=== PATIENT | female | born 1965 | race Caucasian/White ===

== ENCOUNTER 2017-07-07 00:52 | Emergency (ER) | payer OTHER ==
[~2017-07-07] VITALS: Ht 162.6 cm; Wt 159.0 kg
[~2017-07-07 00:52] MED LIST: ALBU1NEB10 INH; CRS10 PO; CRS5 PO; INSHRI SC; LEVO150T PO; LISI-461 PO; LITH300T2 PO; LTHSR450 PO; NVLGI/PEN SQ; NXM/40 PO; ROPI3TAB PO; ROPI5TAB PO
[2017-07-07 00:55] VITALS: TEMP 36.6; Ht 162.6 cm; Wt 159.0 kg
[2017-07-07] MEDS ORDERED: CYAN10005 PO (01:34)
[2017-07-07] MEDS ORDERED: VNTHFA/IN INH (01:34)
[2017-07-07] MEDS ORDERED: SITA1TAB21 PO (01:34)
[2017-07-07] MEDS ORDERED: ERGO500037 PO (01:34)
[2017-07-07] MEDS ORDERED: LSN20 PO (01:34)
[2017-07-07] MEDS ORDERED: SYN137 PO (01:34)
[2017-07-07] MEDS ORDERED: INSPMPNVLG (01:34)
[2017-07-07] MEDS ORDERED: ROPI4TAB3 PO (01:34)
[2017-07-07] MEDS ORDERED: CEPH500C2 PO (02:09)
[2017-07-07] MEDS ORDERED: PHEN-876 PO (02:09)
[2017-07-07] MEDS ORDERED: CEPHALEXIN 500MG HOME PACK 1 EA BTL PO ONE (02:15)
[2017-07-07] MEDS ORDERED: PHENAZOPYRIDINE HOME PACK 200 MG VIAL PO ONE (02:15)
[2017-07-07 02:29] VITALS: BP 135/68; PULSE 66; O2SAT 97
--- NOTE | 2017-07-07 02:39 | EMERGENCY ROOM VISIT NOTE ---
History First contact with patient: 00:58 Chief Complaint: URINARY SYMPTOMS Stated Complaint: UTI History of Present Illness The patient is a 52 year old female who presents to the Emergency Room with complaints of urinary frequency and urgency for the past day. Blood sugars have been running in the 200s which is normal per patient. Patient has a history of UTIs but nothing recent. Last one was over a year ago. Patient denies chest pain, dyspnea, nausea, vomiting, flank pain, hematuria, vaginal itching or discharge or pain to the pelvic region. She denies rash to the genitalia region. Review of Systems An 10 system review of systems was completed with positives and pertinent negatives listed in the HPI. Past Medical/Surgical History Medical Problems: (1) Adult-onset Still's disease (2) Asthma (3) Bipolar disorder (4) Diabetes (5) Fibroid uterus (6) History of restless legs syndrome (7) History of total bilateral knee replacement (8) HTN (hypertension) (9) Hypothyroidism (10) Iron deficiency anemia (11) Morbid obesity with BMI of 60.0-69.9, adult (12) Obstructive sleep apnea (13) Osteoarthritis (14) Jaclyn-menopause (15) Poorly controlled type 2 diabetes mellitus Family History FH: HTN (hypertension) FH: cancer FH: diabetes mellitus FH: heart disease FH: lung disease Social History Smoking Status: Never Smoker Alcohol Use: none Marital Status: Housing Status: lives with significant other Occupation Status: unemployed Current/Historical Medications Scheduled Cephalexin Monohydrate (Keflex), 500 MG PO BID Cyanocobalamin (Vitamin B-12), 1,000 MCG PO DAILY Ergocalciferol (Vitamin D 68291 Unit), 50,000 UNIT PO 2XWK Esomeprazole Magnesium (Nexium), 40 MG PO QAM Insulin Aspart (novoLOG INSULIN PUMP ), 1 EA N/A UD Levothyroxine Sodium (Levothyroxine Sodium), 137 MCG PO QAM Lisinopril (Lisinopril), 20 MG PO QAM Strum Carbonate (Strum Carbonate Tab), 600 MG PO QAM Phenazopyridine HCl (Pyridium), 200 MG PO TID Ropinirole (Requip), 4 MG PO HS Rosuvastatin Calcium (Crestor), 10 MG PO QAM Sitagliptin-Metformin Hcl (Janumet Xr), 1 TAB PO QAM Scheduled PRN Albuterol Hfa (Ventolin Hfa), 2 PUFFS INH Q4H PRN for SOB/Wheezing Physical Exam Vital Signs Date Time Temp Pulse Resp B/P (MAP) Pulse Ox O2 Delivery O2 Flow Rate FiO2 07/07/17 02:29 66 16 135/68 97 07/07/17 00:55 36.6 59 16 151/71 98 Room Air Physical Exam VITALS: Vitals are noted on the nurse's note and reviewed by myself. Vital signs hypertensive GENERAL: Pleasant female, in no acute distress, nondiaphoretic, well-developed well-nourished. SKIN: Capillary reflex less than 2 seconds. HEENT: Normocephalic. PERRLA. EOMI. Nares patent. Mucous membranes moist. Neck is supple without nuchal rigidity. HEART: Regular rate and rhythm without murmurs gallops or rubs. LUNGS: Clear to auscultation bilaterally without wheezes, rales or rhonchi. No retractions or accessory muscle use. ABDOMEN: Positive bowel sounds x 4. Normal tympanic percussion. Soft, protuberant, obese, nontender, without masses or organomegaly. Manzo sign negative. No guarding or rebound tenderness. No CVA tenderness MUSCULOSKELETAL: No gross musculoskeletal defects. NEURO: Patient was alert and oriented to person place and time. Normal sensation to light and sharp touch. No focal neurological deficits. Medical Decision & Procedures Laboratory Results Test 07/07/17 01:20 07/07/17 01:22 Urine Color YELLOW Urine Appearance CLEAR (CLEAR) Urine pH 6.0 (4.5-7.5) Urine Specific Marion 1.010 (1.000-1.030) Urine Protein NEG (NEG) Urine Glucose (UA) NEG (NEG) Urine Ketones NEG (NEG) Urine Occult Blood NEG (NEG) Urine Nitrite NEG (NEG) Urine Bilirubin NEG (NEG) Urine Urobilinogen NEG (NEG) Urine Leukocyte Esterase NEG (NEG) Urine Test NEG (NEG) Bedside Glucose 223 mg/dl (70-90) ED Course Prior records reviewed and summarized as above. Triage Nursing notes reviewed. Additional history obtained from family The patient's history was concerning for urinary symptom Differential diagnosis: Etiologies such as UTI, cystitis, pyelonephritis, renal colic, DKA, glucose abnormalities, as well as others were entertained.. Physical examination: As above ER treatment provided: Keflex, Pyridium On reassessment the patient felt better. Diagnostics interpreted by me: The labs revealed blood sugar of 232. Urine without obvious signs of infection without ketones This appears to be hyperglycemia without DKA and urinary symptoms with no obvious signs of infection. Patient is a diabetic so did opt to start on antibiotics. Offered to do further blood work today and patient declined. I felt this is reasonable. She had no ketones in her urine and she had no odor of ketones on her breath and had no diplopia or polydipsia. She was informed to follow-up tomorrow with her family care doctor for further evaluation and workup for her symptoms today and agreed to this. Patient was concerned that she had to get to work. Patient was advised to return to the ER immediately for high blood sugars, flank pain, vomiting, worsening signs or symptoms or as needed. By the evaluation outlined above emergent etiologies such as pyelonephritis, DKA as well as others were deemed relatively unlikely. The pt informed about the findings as listed above. All questions were answered and pleased with the treatment. Return instructions were outlined and the patient was discharged in stable condition. Outpatient prescription management: Keflex, Pyridium Referral: The patient was referred back to primary care physician for follow-up in 1-2 daysfor a recheck of the current condition. Case reviewed with my attending The chart was completed utilizing [employer] Speech voice recognition software. Grammatical errors, random word insertions, pronoun errors, and incomplete sentences are an occassional consequence of this system due to software limitations, ambient noise, and hardware issues. Any formal questions or concerns about the content, text, or information contained within the body of this dictation should be directly addressed to the physician diver assistant for clarification. Medical Decision As above Medication Reconcilliation Current Medication List: was personally reviewed by me Blood Pressure Screening Patient's blood pressure: Normal blood pressure Impression Primary Impression: Hyperglycemia due to type 2 diabetes mellitus Additional Impression: Symptoms of urinary tract infection Departure Information Dispostion Home / Self-Care Condition GOOD Prescriptions Phenazopyridine HCl (Pyridium) 200 Mg Tab 200 MG PO TID for 2 Days, #6 TAB Prov: Mary Encarnacion .JUANITA 07/07/17 Cephalexin Monohydrate (KEFLEX) 500 Mg Cap 500 MG PO BID for 5 Days, #10 CAP Prov: Mary Encarnacion PA-C 07/07/17 Forms HOME CARE DOCUMENTATION FORM, Work Instructions, Return To Work: 1 day IMPORTANT VISIT INFORMATION Patient Instructions UTI, My [facility] [employer] Additional Instructions Monitor your blood sugars. It was high today. Keflex 500 mg: Take one pill twice daily for 7 days for your urine infection. All antibiotics can cause diarrhea. If this occurs and you feel worse or it does not resolve in 1-2 days follow up with your doctor or return to the Emergency Department as this could be signs of serious underlying problems. Any medication can cause an allergic reaction, stop the pills immediately and return to the ER for rash, hives, breathing difficulties, or swelling. Pyridium 200mg: Take one pill three times daily as needed for urinary discomfort. This medication will turn your urine orange. This is normal and nothing to be concerned about. Ibuprofen(Motrin, Advil) may be used for fever or pain. Use 600mg every six hours as needed. Take with food. Avoid using more than 2400mg in a 24 hour period. Do not use 2400mg per day for more than three consecutive days without physician direction. Prolonged inappropriate use can lead to stomach upset or ulcers. (AND/OR) Acetaminophen(Tylenol) may be used for fever or pain. Use 1000mg every six hours as needed. Avoid using more than 3000mg in a 24 hour period. Rest and drink plenty of fluids as tolerated. Slow sips of water or sports drinks are recommended instead of large amounts all at once. Continue current medications. Once your stomach is settled start with a clear liquid diet (jello, soup broth, etc.) and then advance as tolerated. You should avoid full, heavy meals for about 24 hrs from the time your symptoms resolved. Return to the ER immediately for worsening or persistent abdominal/back pain, vomiting, fevers, worsening of your condition, or as needed. Follow up with your primary physician within 1-2 days for a recheck of the current condition. Work Instructions Return To Work: 1 day Problem Qualifiers Primary Impression: Hyperglycemia due to type 2 diabetes mellitus Diabetes mellitus jail insulin use: with manager intermediate use Qualified Codes: E11.65 - Type 2 diabetes mellitus with hyperglycemia; Z79.4 - [facility] ( current) use of insulin
== END 2017-07-07 02:30 | disposition home or self-care (01) ==
LOC: C.EDB 00:53 → C.EDA 02:30
DX: R35.0 Frequency of micturition (principal); R39.15 Urgency of urination; E11.65 Type 2 diabetes mellitus with hyperglycemia; M08.20 Juvenile rheumatoid arthritis with systemic onset, unspecified site; J45.909 Unspecified asthma, uncomplicated; F31.9 Bipolar disorder, unspecified; G25.81 Restless legs syndrome; Z96.653 Presence of artificial knee joint, bilateral; I10 Essential (primary) hypertension; E03.9 Hypothyroidism, unspecified; G47.33 Obstructive sleep apnea (adult) (pediatric); D50.9 Iron deficiency anemia, unspecified; Z82.49 Family history of ischemic heart disease and other diseases of the circulatory system; Z80.9 Family history of malignant neoplasm, unspecified; Z83.3 Family history of diabetes mellitus; Z79.4 Long term (current) use of insulin; Z79.899 Other long term (current) drug therapy; E66.01 Morbid (severe) obesity due to excess calories; Z68.44 Body mass index [BMI] 60.0-69.9, adult

== ENCOUNTER → 2017-10-25 | Day surgery (SDC) | payer OTHER ==
[2017-10-24 08:58] VITALS: Ht 162.6 cm; Wt 165.9 kg
[~2017-10-25] VITALS: Ht 162.6 cm; Wt 165.9 kg
[~2017-10-25] MED LIST changes: +ADVIN25/60 INH; -ALBU1NEB10 INH; -CRS5 PO; +CYAN10005 PO; +CYCL5TAB PO; +DEXL60CA4 PO; +ERGO500037 PO; -INSHRI SC; +INSPMPNVLG; +IPRA-64 INH; +IPRA1AER2 INH; +KETAMINE HCL INJ 50 MG/ML 10 ML VIAL ONE; -LEVO150T PO; +LEVO1IUD2 PV; +LIDOCAINE HCL 2% 2 ML VIAL (20MG/ML) ONE; -LISI-461 PO; +LISI-726 PO; +LORA-741 PO; -LTHSR450 PO; +MIDAZOLAM HCL 1 MG/ML 2ML VIAL ONE; -NVLGI/PEN SQ; -NXM/40 PO; +PROPOFOL IV EMULSION 10 MG/ML 20 ML VIAL ONE; -ROPI3TAB PO; +ROPI4TAB3 PO; -ROPI5TAB PO; +SODIUM CHLORIDE 0.9% 500ML 500 ML IV ONE; +SODIUM CHLORIDE 0.9% INJ 10 ML VIAL ONE; +SYN137 PO; +VNTHFA/IN INH
--- NOTE | 2017-10-25 08:26 | Endo History and Physical ---
History & Physical Date of Service: Oct 25, 2017. Chief Complaint: Referring Physician: History of Present Illness EGD for GERD and FHx of esophageal Ca Past Medical History Diabetes, Other Psy. Disorders, Arthritis, Asthma, Anxiety, Reflux, High Cholesterol, Sleep Apnea, Hypertension, Thyroid Disease, Depression Past Surgical History Hx Cardiac Surgery: No Hx Internal Defibrillator: No Hx Pacemaker: No Hx Abdominal Surgery: No Hx of Implantable Prosthesis: No Hx Post-Op Nausea and Vomiting: No Hx Cancer Surgery: No Hx Thoracic Surgery: No Hx Orthopedic: Yes (RT TKR, LEFT TKR) Hx Urinary Tract Surgery: No Family History Esophogeal CA, Polyp Social History Smoking Status: Never Smoker Hx Substance Use: Yes (LORAZEPAM PRN) Hx Alcohol Use: No Allergies Coded Allergies: BEE STING (Verified Allergy, Severe, HIVES AND DIFFICULTY BREATHING, ) Ciprofloxacin (Verified Allergy, Intermediate, heart palpatations, 10/25/17 ) Clarithromycin (Verified Allergy, Unknown, NAUSEA AND DELUSIONAL, 10/25/17) Clindamycin (Verified Allergy, Unknown, "FELT LIKE MY HEAD EXPLODE", ) Doxepin (Verified Allergy, Unknown, BURNING TO APPLICATION SITE AND JITTERINESS, 10/25/17) Doxycycline (Verified Allergy, Unknown, ALTERED MENTAL STATUS, 10/25/17) Erythromycin (Verified Allergy, Unknown, NAUSEA, 10/25/17) Oxycodone (Verified Allergy, Unknown, HALLUCINATIONS, 10/25/17) Penicillins (Verified Allergy, Unknown, UNK, 10/25/17) Quetiapine (Verified Allergy, Unknown, HALLUCINATIONS, JITTERYNESS, ) Valproic Acid (Verified Allergy, Unknown, "LOOSE MIND", 10/25/17) Alprazolam (Verified Adverse Reaction, Unknown, JITTERY, 10/25/17) Gabapentin (Verified Adverse Reaction, Unknown, NIGHTMARES, 10/25/17) Hydroxyzine (Verified Adverse Reaction, Unknown, UNK..SLEEP FOR DAYS??, ) Indomethacin (Verified Adverse Reaction, Unknown, "SPACED OUT", 10/25/17) Macrolides (Verified Adverse Reaction, Unknown, MACROBID--HEADACHE AND NAUSEA, 10/25/17) Ranitidine (Verified Adverse Reaction, Unknown, UNK SLEEP FOR DAYS??, 10/25) Sulfa Antibiotics (Verified Adverse Reaction, Unknown, UPSET STOMACH, 10/25) Current Medications Reported Home Medications Medications Dose Route/Sig Max Daily Dose Days Date Category Dose Instructions Dexilant (Dexlansoprazole) 60 Mg Cap 1 Cap PO DAILY 10/24/17 Reported Ativan (Lorazepam) 0.5 Mg Tab 0.5 Mg PO TID PRN 08/18/17 Reported Mirena (Levonorgestrel (Iud)) 20 Mcg/24 Hr Iud 1 Appln PV UD 08/18/17 Reported Combivent Respimat (Ipratropium-Albuterol) 1 Aer Aer 1 Puffs INH QID PRN 08/18/17 Reported Advair Diskus 250/50 60 Dose (Fluticasone Prop/Salmeterol) 1 Ea Aerp 1 Puff INH BID 08/18/17 Reported Flexeril (Cyclobenzaprine Hcl) 5 Mg Tab 5 Mg PO TID PRN 08/18/17 Reported PRN Duoneb (Ipratropium-Albuterol) 3 Ml Nebu 1 Treatment INH Q4H PRN 08/18/17 Reported Vitamin B-12 (Cyanocobalamin) 1,000 Mcg Tab 1,000 Mcg PO QAM 07/07/17 Reported Vitamin D 94521 Unit (Ergocalciferol) 50,000 Unit Cap 50,000 Unit PO 2XWK 07/07/17 Reported TAKES ON TUESDAYS & SATURDAYS. Ventolin Hfa (Albuterol) 200 Puffs/65846 Mcg Aers 2 Puffs INH Q4H PRN 07/07/17 Reported novoLOG INSULIN PUMP (Insulin Aspart) 1 Ea Inj 1 Ea N/A UD 07/07/17 Reported Requip (Ropinirole HCl) 4 Mg Tab 4 Mg PO HS 07/07/17 Reported Levothyroxine Sodium 137 Mcg Tab 137 Mcg PO QAM 07/07/17 Reported Lisinopril 20 Mg Tab 20 Mg PO QAM 07/07/17 Reported Espino Carbonate Tab (Espino Carbonate) 300 Mg Tab 600 Mg PO QAM 01/20/15 Reported Crestor (Rosuvastatin Calcium) 10 Mg Tab 10 Mg PO QAM 01/20/15 Reported Vital Signs Weight (Kilograms): 165.91 Height (Feet): 5 Height (Inches): 4 Physical Exam General Appearance: no apparent distress Respiratory/Chest: Auscultation: breath sounds normal Cardiovascular: Heart Auscultation: RRR Abdomen: Inspection & Palpation: soft Assessment and Plan Stable for EGD
--- NOTE | 2017-10-25 09:05 | GI REPORT ---
Patient Name: Joyce Smith Procedure Date: 10/25/2017 8:47 AM Date of : 1965 Admit Type: Outpatient Age: 52 Gender: Female Attending MD: Ana Delgadillo MD Procedure: Upper GI endoscopy Providers: Ana Delgadillo MD Referring MD: Elizabeth Chaudhary Indications: Follow-up of gastro-esophageal reflux disease, Family history of esophageal cancer Medicines: Monitored Anesthesia Care Complications: No immediate complications. Estimated Blood Loss: Estimated blood loss: none. Procedure: Pre-Anesthesia Assessment: - Prior to the procedure, a History and Physical was performed, and patient medications and allergies were reviewed. The patient is competent. The risks and benefits of the procedure and the sedation options and risks were discussed with the patient. All questions were answered and informed consent was obtained. Patient identification and proposed procedure were verified by the physician and the nurse in the procedure room. Mental Status Examination: alert and oriented. Airway Examination: normal oropharyngeal airway and neck mobility. Respiratory Examination: clear to auscultation. CV Examination: normal. ASA Grade Assessment: II - A patient with mild systemic disease. After reviewing the risks and benefits, the patient was deemed in satisfactory condition to undergo the procedure. The anesthesia plan was to use monitored anesthesia care (MAC). Immediately prior to administration of medications, the patient was re-assessed for adequacy to receive sedatives. The heart rate, respiratory rate, oxygen saturations, blood pressure, adequacy of pulmonary ventilation, and response to care were monitored throughout the procedure. The physical status of the patient was re-assessed after the procedure. After obtaining informed consent, the endoscope was passed under direct vision. Throughout the procedure, the patient's blood pressure, pulse, and oxygen saturations were monitored continuously. The scope was introduced through the mouth, and advanced to the second part of duodenum. The upper GI endoscopy was accomplished without difficulty. The patient tolerated the procedure well. Findings: One tongue of salmon-colored mucosa was present. The maximum longitudinal extent of these esophageal mucosal changes was 2 cm in length. Biopsies were taken with a cold forceps for histology. Verification of patient identification for the specimen was done by the physician and nurse using the patient's name and date. The Z-line was regular and was found 40 cm from the incisors. A single small sessile polyp with no stigmata of recent bleeding was found in the gastric body. Biopsies were taken with a cold forceps for histology. The duodenal bulb and second portion of the duodenum were normal. Impression: - Kamas-colored mucosa suspicious for short-segment Connelly's esophagus. Biopsied. - Z-line regular, 40 cm from the incisors. - A single gastric polyp. Biopsied. - Normal duodenal bulb and second portion of the duodenum. Recommendation: - Discharge patient to home. - Follow an antireflux regimen. - Await pathology results. - Return to referring physician. Ana Delgadillo MD 10/25/2017 9:05:22 AM This report has been signed electronically. Note Initiated On: 10/25/2017 8:47 AM Number of Addenda: 0 I attest to the content of the Intraoperative Record and orders documented therein, exceptions below {[id number]}
--- NOTE | 2017-10-25 09:06 | Discharge Instructions ---
Endoscopy Patient Instructions Date / Procedure(s) Performed Oct 25, 2017. EGD Allergy Information Coded Allergies: BEE STING (Verified Allergy, Severe, HIVES AND DIFFICULTY BREATHING, ) Ciprofloxacin (Verified Allergy, Intermediate, heart palpatations, 10/25/17 ) Clarithromycin (Verified Allergy, Unknown, NAUSEA AND DELUSIONAL, 10/25/17) Clindamycin (Verified Allergy, Unknown, "FELT LIKE MY HEAD EXPLODE", ) Doxepin (Verified Allergy, Unknown, BURNING TO APPLICATION SITE AND JITTERINESS, 10/25/17) Doxycycline (Verified Allergy, Unknown, ALTERED MENTAL STATUS, 10/25/17) Erythromycin (Verified Allergy, Unknown, NAUSEA, 10/25/17) Oxycodone (Verified Allergy, Unknown, HALLUCINATIONS, 10/25/17) Penicillins (Verified Allergy, Unknown, UNK, 10/25/17) Quetiapine (Verified Allergy, Unknown, HALLUCINATIONS, JITTERYNESS, ) Valproic Acid (Verified Allergy, Unknown, "LOOSE MIND", 10/25/17) Alprazolam (Verified Adverse Reaction, Unknown, JITTERY, 10/25/17) Gabapentin (Verified Adverse Reaction, Unknown, NIGHTMARES, 10/25/17) Hydroxyzine (Verified Adverse Reaction, Unknown, UNK..SLEEP FOR DAYS??, ) Indomethacin (Verified Adverse Reaction, Unknown, "SPACED OUT", 10/25/17) Macrolides (Verified Adverse Reaction, Unknown, MACROBID--HEADACHE AND NAUSEA, 10/25/17) Ranitidine (Verified Adverse Reaction, Unknown, UNK SLEEP FOR DAYS??, 10/25) Sulfa Antibiotics (Verified Adverse Reaction, Unknown, UPSET STOMACH, 10/25) Discharge Date / Findings Oct 25, 2017. 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 - Do not drink alcohol the day of the procedure. - Do not drive a car or operate machinery until the day after the procedure. - Do not make any important decisions or sign important papers in 24 hours after the procedure. Following Day: - Return to full activity which may include returning to work/school. Diet Start your diet with liquids and light foods (jello, soup, juice, toast). Then eat your usual diet if not nauseated. Treatment For Common After Affects For mild abdominal pain, bloating, or excessive gas: - Rest - Eat lightly - Lie on right side Follow-Up Information Follow-up with DR NICOLE as scheduled Anesthesia Information What You Should Know You have had a procedure that required some medicine to reduce anxiety and discomfort. This treatment is called moderate sedation. After receiving the treatment, you may be sleepy, but you will be able to breathe on your own. The effects of the treatment may last for several hours. Follow these instructions along with Activity/Diet recommendations noted above: * Do NOT do anything where dizziness or clumsiness would be dangerous. * Rest quietly at home today, then you can be up and about tomorrow. * Have a responsible person stay with you the rest of today. * You may have had an I.V. today. If so, you may take the dressing off later today. Recommendations Call your doctor if: * Trouble breathing * Continuous vomiting for more than 24 hours * Temperature above 101 degrees * Severe abdominal pain or bloating * Pain not relieved by pain medicine ordered * There is increased drainage or redness from any incision * A large amount of rectal bleeding greater than 2-3 tablespoons. (If you had a polyp/s removed or have hemorrhoids, a small amount of blood - from the rectum is to be expected.) * You have any unanswered questions or concerns. IN THE EVENT OF A SERIOUS EMERGENCY, GO TO THE NEAREST EMERGENCY ROOM Your discharge instructions were prepared by provider Ana Delgadillo. Patient Instructions Signature Page Joyce Smith Patient (or Guardian) Signature/Date: I have read and understand the instructions given to me by my caregivers. Caregiver/RN/Doctor Signature/Date: The above-named patient and/or guardian has received patient instructions on this date. + Original Patient Signature Page (only) stays with chart. Please make copy for patient.
[2017-10-25 09:35] VITALS: BP 141/67; PULSE 59; O2SAT 96
--- NOTE | 2017-10-25 09:48 | Anesthesiology Progress Note ---
Anesthesia Post Op Note Date & Time Oct 25, 2017 at 09:48 Vital Signs Pain Intensity: 0 Vital Signs Past 12 Hours Date Time Temp Pulse Resp B/P (MAP) Pulse Ox O2 Delivery O2 Flow Rate FiO2 10/25/17 09:35 59 18 141/67 (91) 96 Room Air 10/25/17 09:20 60 18 145/58 (87) 97 Room Air 10/25/17 09:08 67 18 109/80 (90) 98 Room Air 10/25/17 08:29 37.0 61 16 178/73 (108) 99 Room Air Notes Mental Status: alert / awake / arousable, participated in evaluation Pt Amnestic to Procedure: Yes Nausea / Vomiting: adequately controlled Pain: adequately controlled Airway Patency, RR, SpO2: stable & adequate BP & HR: stable & adequate Hydration State: stable & adequate Anesthetic Complications: no major complications apparent
== END | disposition home or self-care (01) ==
LOC: C.GI 07:44
PROVIDERS: ATTEND Student in an Organized Health Care Education/Training Program
DX: K31.7 Polyp of stomach and duodenum (principal); K21.9 Gastro-esophageal reflux disease without esophagitis; Z80.0 Family history of malignant neoplasm of digestive organs; I10 Essential (primary) hypertension; G47.33 Obstructive sleep apnea (adult) (pediatric); E78.00 Pure hypercholesterolemia, unspecified; F32.9 Major depressive disorder, single episode, unspecified; E07.9 Disorder of thyroid, unspecified; E66.9 Obesity, unspecified; Z68.44 Body mass index [BMI] 60.0-69.9, adult; Z99.89 Dependence on other enabling machines and devices; Z91.030 Bee allergy status; Z88.1 Allergy status to other antibiotic agents; Z88.2 Allergy status to sulfonamides; Z88.0 Allergy status to penicillin

== ENCOUNTER 2021-11-05 05:26 | Inpatient (IN) ==
--- NOTE | 2021-10-29 17:18 | Anesthesiology Consultation ---
Date of Service October 29, 2021 History Surgery Operation Date: 11/05/21 07:00 Proposed Procedures p Total Laparoscopic Hysterectomy, Bilateral Salpingectomy, Cystoscopy, Possible Laparotomy - Lui Martinez MD Height/Weight Height: 5 ft 4 in Weight: 77.111 kg Allergies Allergy/AdvReac Type Severity Reaction Status Date / Time bee venom protein (honey bee) Allergy Severe HIVES AND Verified 10/28/21 15:08 DIFFICULTY BREATHING Cipro Allergy Intermediate heart Verified 10/25/17 08:29 palpatations ciprofloxacin Allergy Intermediate heart Verified 10/28/21 15:08 palpatations clarithromycin Allergy Intermediate NAUSEA AND Verified 10/28/21 15:08 DELUSIONAL clindamycin Allergy Intermediate "FELT LIKE Verified 10/28/21 15:08 MY HEAD EXPLODE" doxepin Allergy Intermediate BURNING TO Verified 10/28/21 15:08 APPLICATION SITE AND JITTERINESS doxycycline Allergy Intermediate ALTERED Verified 10/28/21 15:08 MENTAL STATUS oxycodone Allergy Intermediate HALLUCINATI Verified 10/28/21 15:08 ONS quetiapine Allergy Intermediate HALLUCINATIONS, Verified 10/28/21 15:08 JITTERYNESS valproic acid Allergy Intermediate "LOOSE Verified 10/28/21 15:08 MIND" Penicillins Allergy Unknown Unknown- Verified 10/28/21 15:08 A CHILD gabapentin AdvReac Intermediate Extremely Verified 10/28/21 15:08 tired hydroxyzine AdvReac Intermediate Slept for Verified 10/28/21 15:08 days indomethacin AdvReac Intermediate "SPACED Verified 10/28/21 15:08 OUT" Macrolide Antibiotics AdvReac Intermediate HEADACHE Verified 10/28/21 15:08 AND NAUSEA ranitidine AdvReac Intermediate Slept for Verified 10/28/21 15:08 days alprazolam AdvReac Mild JITTERY Verified 10/28/21 15:08 erythromycin base AdvReac Mild NAUSEA Verified 10/28/21 15:08 Sulfa (Sulfonamide AdvReac Mild UPSET Verified 10/28/21 15:08 Antibiotics) STOMACH Medications Home Medications Medication Instructions Recorded Confirmed Last Taken cyanocobalamin (vitamin B-12) 1,000 mcg PO QAM 05/11/18 10/28/21 12/02/18 1,000 mcg tablet (Vitamin B-12) levonorgestrel 20 mcg/24 hours (7 1 dose intrauterine DIRECTED 05/11/18 10/28/21 Unknown yrs) 52 mg intrauterine device (Mirena) levothyroxine 137 mcg tablet 112 mcg PO QAM 05/11/18 10/28/21 12/02/18 lithium carbonate 300 mg tablet 450 mg PO QAM 05/11/18 10/28/21 12/02/18 lorazepam 0.5 mg tablet 0.5 mg PO BID PRN Anxiety 05/11/18 10/28/21 Unknown ropinirole 1 mg tablet 2 mg PO HS 12/03/18 10/28/21 12/02/18 ipratropium 0.5 mg-albuterol 3 mg 3 ml inhalation QID PRN Shortness 04/07/19 10/28/21 Unknown (2.5 mg base)/3 mL nebulization Of Breath Or Wheezing soln buspirone 10 mg tablet 10 mg PO QAM 10/28/21 10/28/21 Unknown cyanocobalamin (vitamin B-12) 1,000 mcg UD 10/28/21 10/28/21 Unknown 1,000 mcg/mL injection syringe multivitamin with minerals-folic 2 tab PO QAM 10/28/21 10/28/21 Unknown acid 200 mcg chewable tablet (Multivitamin Gummies) ropinirole 0.5 mg tablet 0.5 mg PO DAILY PRN Restless Leg(S) 10/28/21 10/28/21 Unknown semaglutide 1 mg/dose (2 mg/1.5 1 mg subcut WK 10/28/21 10/28/21 Unknown mL) subcutaneous pen injector (Ozempic) Past Medical History Medical History (Updated 10/28/21 @ 15:37 by Mariah Mcgowan, GENEVIEVE) Anemia Anxiety Asthma LAST USE NEBULIZER 1 YR AGO Bipolar disorder Cancer UTERINE Cardiac murmur HX Degenerative disc disease Diabetes mellitus, type 2 IDDM GERD (gastroesophageal reflux disease) UNDER CONTROL Hyperlipemia HX Hypertension HX Hypothyroidism Kidney mass NOTED ON ULTRASOUND-[facility]) -F/U JEFFERY Osteoarthritis Restless leg Sleep apnea CPAP Past Family History Family History Father Family history of diabetes mellitus Sister Family history of diabetes mellitus Brother Family history of diabetes mellitus Mother Family history of diabetes mellitus Father Family history of esophageal cancer Brother Family history of esophageal cancer Past Surgical History Surgical History (Updated 10/28/21 @ 15:24 by Mariah Mcgowan RN) History of anesthesia reaction REPORTS SHE WOKE UP DURING KNEE REPLACEMENT SURGERY History of cholecystectomy WITH HIATAL HERNIA REPAIR History of colonoscopy History of esophagogastroduodenoscopy (EGD) History of gastric bypass 2019 [facility]-200 LB WT LOSS SINCE History of herniorrhaphy History of tooth extraction History of total knee replacement R/L Social History Smoking Status: Never smoker Do You Dip or Chew Tobacco: No Hx Alcohol Use: No Hx Substance Use: No substance use type: does not use Testing Electrocardiogram Date: 12/11/20 Findings: + NSR @ and + NSST changes Echocardiogram Date: 11/03/17 EF: 55-60 LV Function: normal Other Findings: + diastolic dysfunction mild pulmonary HTN Stress Test Date: 02/26/18 Findings: + WNL; no ischemia Resting EF: 55-60 Resting RWMA: + pertinent finding (grade II diastolic dysfunction)
[2021-11-05] MEDS ORDERED: LR 15ML/HR IV SCH (06:00)
[2021-11-05] MEDS ORDERED: MIDAZOLAM HCL 1 MG/ML 2ML VIAL ONE (06:49)
[2021-11-05] MEDS ORDERED: fentaNYL citrate 100 MCG/2 ML VIAL ONE (06:49)
[2021-11-05] MEDS ORDERED: ROCURONIUM BROMIDE 10 MG/ML 5 ML VIAL IV ONE (06:51)
[2021-11-05] MEDS ORDERED: LIDOCAINE 2% MPF LOCAL 5 ML VIAL INFIL ONE (06:52)
[2021-11-05] MEDS ORDERED: PROPOFOL IV EMULSION 10 MG/ML 20 ML VIAL IV ONE ×2 (06:53→08:22)
[2021-11-05] MEDS ORDERED: ACETAMINOPHEN 1000 MG/100 ML IV IV ONE (06:57)
[2021-11-05] MEDS ORDERED: ePHEDrine sulfate 50 MG/ML AMP IV PRN (07:02)
[2021-11-05] MEDS ORDERED: ONDANSETRON INJ 2 MG/ML 2 ML VIAL IV PRN ×2 (07:02→10:16)
[2021-11-05] MEDS ORDERED: HYDROmorphone INJ 2 MG/ML SYR/VIAL IV PRN (07:02)
[2021-11-05] MEDS ORDERED: ATROPINE SULFATE 0.1 MG/ML 10ML SYR IV PRN (07:02)
--- NOTE | 2021-11-05 07:02 | History & Physical Bridge Note ---
Date of Service November 05, 2021 History & Physical Bridge Note I have examined the patient, reviewed the History & Physical and in the interval since the performance of the History & Physical I have noted the following changes of clinical significance: no changes noted
[2021-11-05] MEDS ORDERED: METHYLENE BLUE 0.5% 10 ML VIAL ONE (07:09)
[2021-11-05] MEDS ORDERED: BUPIVACAINE 0.5 % 5 MG/1 ML MPF 30ML VIAL ONE (07:09)
[2021-11-05] MEDS ORDERED: HYDROmorphone INJ 2 MG/ML SYR/VIAL ONE (07:41)
[2021-11-05] MEDS ORDERED: ceFAZolin 330 MG/ML 1 GM VIAL ONE ×2 (07:51)
[2021-11-05] MEDS ORDERED: ONDANSETRON INJ 2 MG/ML 2 ML VIAL ONE ×2 (08:02→09:30)
[2021-11-05] MEDS ORDERED: DEXAMETHASONE SOD INJ 4 MG/ML VIAL ONE (08:02)
[2021-11-05] MEDS ORDERED: ceFAZolin 2000MG 2,000 MG/15 ML SYR IV ONE (08:44)
[2021-11-05] MEDS ORDERED: TISSEEL FIBRIN SEALANT 10ML TOP ONE (09:19)
[2021-11-05] MEDS ORDERED: KETOROLAC 30 MG/ML VIAL ONE (09:30)
[2021-11-05] MEDS ORDERED: GLYCOPYRROLATE 0.2 MG/ML VIAL ONE ×2 (09:52)
[2021-11-05] MEDS ORDERED: NEOSTIGMINE METHYLSULFATE 1 MG/ML 10ML VIAL ONE (09:52)
[2021-11-05] MEDS ORDERED: oxyCODONE/ACETAMINOPHEN 5mg/325mg TAB PO PRN ×2 (10:16)
[2021-11-05] MEDS ORDERED: bisacodyL 10 MG SUPP PR PRN (10:16)
[2021-11-05] MEDS ORDERED: SIMETHICONE 80 MG CHEW PO PRN (10:16)
[2021-11-05] MEDS ORDERED: MAGNESIUM HYDROXIDE SUSP 30 ML UDC PO PRN (10:16)
--- NOTE | 2021-11-05 10:20 | Post Operative Brief Note ---
Immediate Post Op Note v1 Date of Surgery November 05, 2021 Pre & Post Diagnosis Operation Date: 11/05/21 07:00 Pre-Op Diagnosis: Complex Hyperplasia with Atypia Post-Op Diagnosis: Complex Hyperplasia with Atypia I identified the patient and participated in the time-out.: Yes Procedure Operation Date: 11/05/21 07:00 Actual Procedures p Total Laparoscopic Hysterectomy, Bilateral Salpingo-Oophorectomy, Cystoscopy, Removal of Intrauterine Device(Not Applicable) - Lui Martinez MD Surgeon Lui Martinez MD Wood Last Maker donell burks Estimated Blood Loss 10 Findings Consistent with Post-Op Diagnosis Drains Bower Catheter (Placed by surgeon at beginning of case)
[2021-11-05] MEDS ORDERED: LACTATED RINGER'S 1,000 ML IV SCH (10:30)
[2021-11-05] MEDS: fentaNYL citrate 100 MCG/2 ML VIAL IV PRN ×3 (10:35→11:00)
--- NOTE | 2021-11-05 10:57 | Anesthesiology Progress Note ---
Date of Service November 05, 2021 Anesthesia Post Procedure Vital Signs Vital Signs: Temp Pulse Pulse Resp BP Pulse Ox O2 Del Method 11/05/21 10:50 65 17 161/66 H 100 Oxymask 11/05/21 10:40 70 17 141/91 H 100 Oxymask 11/05/21 10:30 67 18 159/75 H 100 Oxymask 11/05/21 10:20 53 L 15 124/63 100 Oxymask 11/05/21 10:10 36.1 C L 53 L 14 145/61 H 100 Oxymask 11/05/21 05:54 36.7 C 54 L 20 164/81 H 100 Room Air O2 Flow Rate 11/05/21 10:50 6 11/05/21 10:40 6 11/05/21 10:30 10 11/05/21 10:20 15 11/05/21 10:10 15 11/05/21 05:54 Pain Intensity Abdomen: Pain Intensity: 8 Transfer of Care Handoff Completed per policy Notes Mental Status: alert / awake / arousable and participated in evaluation Patient Amnestic to Procedure: Yes Nausea / Vomiting: adequately controlled Pain: adequately controlled Airway Patency, RR, SpO2: stable & adequate BP & HR: stable & adequate Hydration State: stable & adequate Anesthetic Complications: no major complications apparent and Pt Satisfied with anesthetic care
[2021-11-05] MEDS ORDERED: ACETAMINOPHEN W/CODEINE #3 1 TAB PO PRN (19:25)
[2021-11-05] MEDS: DOCUSATE SODIUM 100 MG CAP PO SCH (20:35)
[2021-11-05] MEDS: ACETAMINOPHEN W/CODEINE #3 1 TAB PO PRN (20:35)
--- NOTE | 2021-11-05 23:29 | Operative Report (OR) ---
DATE OF SURGERY: 11/05/[address] PLACE OF SURGERY: [facility]. INDICATIONS FOR SURGERY: This is a 56-year-old with endometrial intraepithelial neoplasia who had be en on IUD treatment for several years. The patient was morbidly obese and at that time was not a talya gical candidate. 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 The patient had contin uously been getting endometrial biopsies for followup. In the last couple of years, the patient has b een able to lose 400 pounds and now is a candidate for surgery. PREOPERATIVE DIAGNOSIS: Endometrial intraepithelial neoplasia. POSTOPERATIVE DIAGNOSIS: Endometrial intraepithelial neoplasia. SURGEON: Lui Martinez MD. SAND BOBBER: SENA Jordan. ATTESTATION FOR SAND BOBBER: [employer] was necessary to help with retraction and to provide better vis ualization for safe surgery. OPERATIVE PROCEDURES: 1. Total laparoscopic hysterectomy. 2. Bilateral salpingo-oophorectomy. 3. Cystoscopy. 4. IUD removal. ANESTHESIA: General. DRAINS: None. ESTIMATED BLOOD LOSS: 10 mL. INTRAVENOUS FLUIDS: 1300 mL. URINE OUTPUT: 600 mL. SPECIMENS: Uterus and cervix, left fallopian tube and ovary, right fallopian tube and ovary. INTRAOPERATIVE COMPLICATIONS: None. PATIENT CONDITION: Stable. DISPOSITION: Postanesthesia care unit. ATTESTATION: I performed the entire procedure. FINDINGS: Atrophic vulva, vagina. The patient had an IUD string at the cervix. Laparoscopic findin gs showed uterus is about 8 weeks' size with a fibroid on the left cornual region. Both adnexa appea red grossly normal. The patient appeared to have several implants of what appeared to be endometrios is. There were some excrescences seen on the ovary and on the peritoneum that was unusual. The rest of the abdominopelvic exam is otherwise unremarkable. There were no significant adhesions. DESCRIPTION OF PROCEDURE: The patient was taken to the operating room where she was draped and prepp ed in normal sterile fashion. Timeout was called. Bower catheter was placed in the bladder. Uterin e manipulator was placed on the cervix to help manipulate the uterus during laparoscopy. A Sensorin pauma rine manipulator size small was used. Attention was paid to the abdominal part of the procedure where a supraumbilical incision was made wi th a scalpel. A Veress needle was introduced into the abdomen at a 45-degree angle while tenting up the abdomen. Intraabdominal placement was confirmed with a water-filled syringe. Suction and water drop test was performed. The abdomen is insufflated with 3 L of CO2 gas. Veress needle was removed. A 5 mm nonbladed trocar attached to a laparoscope was placed into the abdomen at a 45-degree angle w hile tenting up the abdomen. This was done under direct visualization. Once inside the abdomen, laparoscope was repositioned and findings as dictated above. Three more acc essory ports were placed using trocars. These were all done under direct visualization. On the left , two 10 mm trocars were placed. On the right, an additional 5 mm trocar was placed. The general ayo earance of the pelvis including the abdominal wall is as dictated above. The uterus, left and right fallopian tube, ovaries, bladder, ureters, and uterosacrals were all identified. The LigaSure was passed through the left accessory port. The left fallopian tube was identified and grabbed 4 cm from the cornua of the uterus with the LigaSure and transected. This is followed by opcampos ludwig of the left anterior leaf of the broad ligament. The mid section of the left fallopian tube, ut ero-ovarian and medial ovarian pedicles were transected as well. Same procedure was performed on the contralateral side on the right. The anterior broad ligament was dissected to the mid-section of th e vesicouterine peritoneum over the bladder using the Harmonic scalpel. Same procedure was carried o ut on the contralateral side. The posterior broad ligament peritoneum was carefully dissected also from both sides over the uterosa cral arch in order to displace the ureters laterally. Using traction and countertraction, the Ildefonso shearer retractor and waste baler probe was used to further dissect the bladder off the lower segment of the uterus. Bladder pillars and pubovesical fascia was dissected as well. Harmonic scalpel was used to obtain hemostasis whenever needed. Uterine manipulator was now palpable over the vaginal tissue. T he right uterine pedicles were skeletonized and coagulated with the LigaSure. There was good hemosta sis. Same procedure was performed on the contralateral side. The cardinals were transected on both sides. Once good hemostasis was obtained, colpotomy was performed using the LigaSure hook from both sides. The uterus was removed through the vagina while still attached to the uterine manipulator. A sponge was placed in a glove and placed into the vagina to help maintain pneumoperitoneum. The left adnexas identified. They were positioned anteromedially and transected using the LigaSure f rom the contralateral side. These were also removed through the colpotomy site. The EndoStitch device is passed through the 10 mm port on the left, and using the [place] grasper fo r traction, the colpotomy closure was performed. Uterosacral ligaments were incorporated into the cl osure in order to decrease the risks of prolapse. Lapra-Tys were used with the EndoStitch. Attention was paid to the cystoscopy part of the procedure where a cystoscope was placed into the sriram dder. There was no hematuria. There were no sutures in the bladder. A bubble was seen in the super ior part of the bladder. Both ureteral orifices and the trigone were identified. Urine was seen eje cting out of both ureteral orifices without any difficulty. The cystoscope was removed. Attention was paid back to the abdominal part of the procedure. The 10 mm ports are now closed using a Chilo-Sana closure device. The colpotomy closure site and the adnexa sites appeared to have good hemostasis. Tisseel vessel sealer had been placed on these sites for additional hemostasis. Fu rther inspection of the abdomen and pelvis showed hemostasis. The 10 mm skin incision sites are clos ed with 4-0 Monocryl. The 5 mm incision sites are closed with Dermabond. All instruments were removed from the abdomen and the vagina and the bladder and accounted for x2 inc luding sponges, needles, and retractors. The patient is sent to recovery in stable condition. Job ID: [id number]
[2021-11-06] MEDS: ACETAMINOPHEN W/CODEINE #3 1 TAB PO PRN ×2 (02:22→06:41)
[2021-11-06 06:40] LABS: Basophils # (auto) 0.04 K/uL (0-0.2); Basophils % (auto) 0.4 %; Eosinophils # (auto) 0.11 K/uL (0-0.50); Eosinophils % (auto) 1.1 %; Hematocrit (blood only) 31.6 % (34.1-44.9); Hemoglobin 10.4 g/dl (12.0-16.0); Immature Granulocytes # (auto) 0.03 K/uL (0.00-0.02); Immature Granulocytes % (auto) 0.3 %; Lymphocytes # (auto) 3.05 K/uL (1.2-3.4); Lymphocytes % (auto) 31.4 %; Mean Corpuscular Hemoglobin 29.9 pg (25.0-34.0); Mean Corpuscular Hgb Conc 32.9 g/dL (32.0-36.0); Mean Corpuscular Volume 90.8 fL (80.0-100.0); Mean Platelet Volume 9.7 fL (9.4-12.3); Monocytes # (auto) 0.56 K/uL (0.24-0.82); Monocytes % (auto) 5.8 %; Neutrophils # (auto) 5.91 K/uL (1.4-6.5); Platelet Count 253 K/uL (130-400); RDW Coefficient of Variation 12.6 % (11.5-14.5); RDW Standard Deviation 41.8 fL (36.4-46.3); Red Blood Count 3.48 M/uL (3.93-5.22)
[2021-11-06 06:58] LABS: BUN Creatinine Ratio 21.4 (10-20); Calcium 8.9 mg/dl (8.5-10.1); Creatinine Clr Calc Pharmacy 75.4 ml/min; Est GFR (African American) 89.4 ml/min; Est GFR (Non-African American) 77.2 ml/min; Potassium 3.8 mmol/L (3.5-5.1)
[2021-11-06] MEDS: DOCUSATE SODIUM 100 MG CAP PO SCH ×2 (08:50→20:33)
--- NOTE | 2021-11-06 09:46 | Obstetrical Progress Note ---
Date of Service November 06, 2021 Assessment & Plan (1) S/P laparoscopic supracervical hysterectomy: POD #1 pt doing well d/c home with instructions Subjective Review of Systems All systems reviewed & are unremarkable except as noted in HPI & below Physical Exam Constitutional WD/WN, vitals as above Eyes PERRL, conjunctivae normal, anicteric sclerae ENMT external ear and nose normal, oropharynx normal Neck trachea midline, no thyromegaly Respiratory normal respiratory effort, lungs clear to auscultation Cardiovascular RRR, no murmur, no edema Chest (Breasts) normal inspection/palpation of breasts Gastrointestinal (Abdomen) normal bowel sounds, soft, nontender, no hepatosplenomegaly Musculoskeletal no cyanosis or clubbing, extremities motor strength 5/5 Skin + incision (Incision clean,dry and intact) Neurologic patellar DTR's 2+ bilat, sensation intact Psychiatric A+Ox3, euthymic affect Genitourinary no vaginal lesions, no adnexal mass Lymphatic no cervical or axillary lymphadenopathy Results & Data ([facility]) Vital Signs (Past 12 Hours) Vital Signs Temp Pulse Resp BP Pulse Ox O2 Del Method 11/06/21 08:10 37.1 C 74 16 102/56 L 98 Room Air 11/06/21 03:37 36.9 C 64 16 116/50 L 98 Room Air 11/05/21 22:54 37.2 C 60 16 103/53 L 96 Room Air
[2021-11-06] MEDS ORDERED: hydrALAZINE HCL 20 MG/ML VIAL ONE (10:18)
[2021-11-06] MEDS ORDERED: CITRIC ACID/SODIUM CITRATE 15 ML UDC ONE (10:26)
[2021-11-06] MEDS: PANTOprazole 40 MG TAB PO SCH ×2 (14:00→20:34)
[2021-11-06] MEDS ORDERED: ACETAMINOPHEN 1,000 MG/100 ML VIAL IV STA (14:24)
[2021-11-06] MEDS ORDERED: DEXTROSE 50% 50 ML SYRINGE IV PRN (14:57)
[2021-11-06] MEDS ORDERED: GLUCAGON FOR INJ 1 MG VIAL SQ PRN (14:57)
[2021-11-06] MEDS ORDERED: GLUCOSE 40% GEL 15 GM TUBE PO PRN (14:57)
[2021-11-06] MEDS ORDERED: CARBOHYDRATES FOR HYPOGLYCEMIA PO PRN (14:57)
[2021-11-06] MEDS ORDERED: GLUCOSE 10 TAB/TUBE PO PRN (14:57)
[2021-11-06] MEDS ORDERED: GLUCAGON 1 MG in SYRINGE 0 ML IV ONE (15:25)
--- NOTE | 2021-11-06 15:26 | Consultation ---
Date of Consultation November 06, 2021 Assessment & Plan (1) Food impaction of esophagus: (2) Chest pain: (3) Nausea and vomiting: (4) S/P laparoscopic supracervical hysterectomy: (5) Diabetes: Plan This is a 56-year-old female who has significant past medical history of T2DM, diabetic neuropathy, retinopathy, history of obesity status post gastric bypass patient lost approximately 200 pounds back in 2019, hypothyroidism, hyperlipidemia, bipolar disorder, COLTEN on CPAP, asthma, diet-controlled hypertension, or less who underwent elective laparoscopic hysterectomy by Dr. Martinez on 11/05/21. Pt with recurrent vomiting since 9 a.m. occurring with solids and liquids, also emesis of undigested food leads to concern for food bolus/impaction. Pt has hx of gastric by pass 2 years ago, also hx of paraesophageal hernia repair and vagus nerve transection b/l in March of 2021. Hx of multiple egd, last in 05/2021 which was normal Chest Pain Possible Food bolus hx of gastric bypass, hx of paraesophageal hernia repair with vagus nerve transection Obtain CXR, EKG BMP, Troponin and Lipase Give 20mg IV pepcid x 1 now Give 1mg glucagon x 1 now due to possible food bolus impaction EKG w/o st t wave change, lipase normal, awaiting trop CXR appears clear and waiting on formal report Dr. Richardson discussed with GI team - going to take to urgent endoscopy at 1700 T2DM controlled on once weekly ozempic last a1c 7.3 on 08/03/21 continue to monitor blood glucose may seek spike after administration of glucagon S/P Laparoscopic hysterectomy doing well post operatively Dr. Martinez managing COLTEN cpap at HS, pt has own from home DVT ppx: add scds for now Dispo: Recommend pt remained hospitalized today, await urgent GI eval for likely endoscopy PCP: [facility] Full Code Pt was seen and examined in collaboration with Dr. Richardson, please see addendum Thank you for this consultation. We will follow the patient with you during their hospital stay. You can reach a member of the [facility] Hospitalist Team 03/10 via hospitalist role on tiger text. Supervising Physician Co-Signing Physician Notes I have seen and examined the patient and have discussed the case with the provider above. I agree with the assessment and plan as stated. 56 yo F with complex GI history including recent paraesophageal hernia repair in Mar 2021 presented to [facility] for elective MARIPOSA. She was recovering well post-operatively until this morning when she developing nausea, vomiting of frothy liquid and con id contents from prior meals, and globus sensation in her sternal area. Her abdomen is soft NTND and laparoscopic sites are closed and healing well. There is no tenderness or distension in her abdomen. She is oriented. She is speaking in full sentences and lung are clear to auscultation throughout. Suspected esophageal impaction of food causing symptoms. Trial of glucagon with possible need for EGD this afternoon. She is aware of the plan and all questions were answered to her satisfaction. Thank you for this consultation. You can reach us via the [facility] Hospitalist [place] role anytime for questions/concerns. Andreina Richardson DO [facility] History of Present Illness Requesting Physician: Dr. Martinez Reason for Consultation: Chest pain, vomiting x 1 day. Attending Physician: Lui Martinez MD History of Present Illness This is a 56-year-old female who has significant past medical history of T2DM, diabetic neuropathy, retinopathy, history of obesity status post gastric bypass patient lost approximately 200 pounds back in 2019, hypothyroidism, hyperlipidemia, bipolar disorder, COLTEN on CPAP, asthma, diet-controlled hypertension, or less who underwent elective laparoscopic hysterectomy by Dr. Martinez on 11/05/21. Patient tolerated the procedure well. Plan was to be discharged home today however at approximately 9 AM patient developed substernal chest pain radiating to her back. She describes it as a burning sensation. She has had similar symptoms in the past that typically would resolve with vomiting; however, this has stayed persistent. Again she has history of gastric bypass approximately 2 years ago. She also had paraesophageal hernia repair and transection vagus nerve March 26, 2021. Her last EGD was in May which revealed normal esophagus with normal pathology. She describes chest pain as substernal, radiating to her back, currently 6 out of 10, not made worse with inspiration or position change. She has vomiting multiple times today which temporary relief of symptoms and then they would return. She ate mash potatoes last night with some protein and vegetables. She tolerated that okay and this morning had eggs and rodriguez. Shortly after breakfast is when she started to vomit. She has vomited up undigested food and is also unable to tolerate liquids and ice chips at this point. She also reports one episode of brown tinged vomit but no leo blood clots. She reports having to be dilated in the past and also reports a strong family hx of esophageal cancer with 2 immediate relatives from it. She denies f/c/s, dizziness, lightheaded, LARSEN, change in vision/hearing, sob, cough, uri sx, abd pain, change in urinary habits. She is passing gas but no BM since surgery. She does have incisional discomfort with ambulation. She has hx of T2DM well controlled on ozempic. Her last a1c was 7.2 in July of 2021. She also has hx of COLTEN on CPAP 8cmh20. Allergies Allergy/AdvReac Type Severity Reaction Status Date / Time bee venom protein (honey bee) Allergy Severe HIVES AND Verified 11/05/21 05:43 DIFFICULTY BREATHING Cipro Allergy Intermediate heart Verified 10/25/17 08:29 palpatations ciprofloxacin Allergy Intermediate heart Verified 11/05/21 05:43 palpatations clarithromycin Allergy Intermediate NAUSEA AND Verified 11/05/21 05:43 DELUSIONAL clindamycin Allergy Intermediate "FELT LIKE Verified 11/05/21 05:43 MY HEAD EXPLODE" doxepin Allergy Intermediate BURNING TO Verified 11/05/21 05:43 APPLICATION SITE AND JITTERINESS doxycycline Allergy Intermediate ALTERED Verified 11/05/21 05:43 MENTAL STATUS oxycodone Allergy Intermediate HALLUCINATI Verified 11/05/21 05:43 ONS quetiapine Allergy Intermediate HALLUCINATIONS, Verified 11/05/21 05:43 JITTERYNESS valproic acid Allergy Intermediate "LOOSE Verified 11/05/21 05:43 MIND" Penicillins Allergy Unknown Unknown- Verified 11/05/21 05:43 A CHILD gabapentin AdvReac Intermediate Extremely Verified 11/05/21 05:43 tired hydroxyzine AdvReac Intermediate Slept for Verified 11/05/21 05:43 days indomethacin AdvReac Intermediate "SPACED Verified 11/05/21 05:43 OUT" Macrolide Antibiotics AdvReac Intermediate HEADACHE Verified 11/05/21 05:43 AND NAUSEA ranitidine AdvReac Intermediate Slept for Verified 11/05/21 05:43 days alprazolam AdvReac Mild JITTERY Verified 11/05/21 05:43 erythromycin base AdvReac Mild NAUSEA Verified 11/05/21 05:43 Sulfa (Sulfonamide AdvReac Mild UPSET Verified 11/05/21 05:43 Antibiotics) STOMACH Home Medications Medication Instructions Recorded Confirmed Type cyanocobalamin (vitamin B-12) 1,000 mcg PO QAM 05/11/18 11/05/21 History 1,000 mcg tablet (Vitamin B-12) levonorgestrel 20 mcg/24 hours (7 1 dose intrauterine DIRECTED 05/11/18 11/05/21 History yrs) 52 mg intrauterine device (Mirena) levothyroxine 137 mcg tablet 112 mcg PO QAM 05/11/18 11/05/21 History lithium carbonate 300 mg tablet 450 mg PO QAM 05/11/18 11/05/21 History lorazepam 0.5 mg tablet 0.5 mg PO BID PRN Anxiety 05/11/18 11/05/21 History ropinirole 1 mg tablet 2 mg PO HS 12/03/18 11/05/21 History ipratropium 0.5 mg-albuterol 3 mg 3 ml inhalation QID PRN Shortness 04/07/19 11/05/21 History (2.5 mg base)/3 mL nebulization Of Breath Or Wheezing soln buspirone 10 mg tablet 10 mg PO QAM 10/28/21 11/05/21 History multivitamin with minerals-folic 2 tab PO QAM 10/28/21 11/05/21 History acid 200 mcg chewable tablet (Multivitamin Gummies) ropinirole 0.5 mg tablet 0.5 mg PO DAILY PRN Restless Leg(S) 10/28/21 11/05/21 History semaglutide 1 mg/dose (2 mg/1.5 1 mg subcut WK 10/28/21 11/05/21 History mL) subcutaneous pen injector (Ozempic) acetaminophen 300 mg-codeine 30 mg 1 tab PO Q4H #30 tabs 11/06/21 Rx tablet docusate sodium 100 mg capsule 100 mg PO BID #30 caps 11/06/21 Rx fluconazole 150 mg tablet 150 mg PO ONCE #3 tabs 11/06/21 Rx (Diflucan) omeprazole 20 mg capsule,delayed 20 mg PO DAILY #30 caps 11/06/21 Rx release simethicone 80 mg chewable tablet 80 mg PO TID #60 tabs 11/06/21 Rx (Gas Relief (simethicone)) Patient History Medical History Anemia Anxiety Asthma LAST USE NEBULIZER 1 YR AGO Bipolar disorder Cancer UTERINE Cardiac murmur HX Degenerative disc disease Diabetes mellitus, type 2 IDDM GERD (gastroesophageal reflux disease) UNDER CONTROL Hyperlipemia HX Hypertension HX Hypothyroidism Kidney mass NOTED ON ULTRASOUND-[facility]) -F/U [facility]AW Osteoarthritis Restless leg Sleep apnea CPAP Surgical History History of anesthesia reaction REPORTS SHE WOKE UP DURING KNEE REPLACEMENT SURGERY History of cholecystectomy WITH HIATAL HERNIA REPAIR History of colonoscopy History of esophagogastroduodenoscopy (EGD) History of gastric bypass 2020 [facility]-200 LB WT LOSS SINCE History of herniorrhaphy History of tooth extraction History of total knee replacement R/L Family History Father Family history of diabetes mellitus Sister Family history of diabetes mellitus Brother Family history of diabetes mellitus Mother Family history of diabetes mellitus Father Family history of esophageal cancer Brother Family history of esophageal cancer Social History Smoking Status: Never smoker Second Hand Exposure: Yes (PARENT SMOKED); Do You Dip or Chew Tobacco: No; Hx Alcohol Use: No Hx Substance Use: No Preferred Language: Cuban Communication Ability: Effective Home Care And Home Health Aides Teacher Required: No Beliefs That Will Affect Care: None Current Living Situation: Spouse current occupational status: other 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 Other Information That Helps Us Care for You: No Feels Safe at Home: Yes Safety Concerns: Feels Safe At This Time Assistive Devices: Glasses Assistive Devices Comment: CAP FRONT UPPER Review of Systems Review of Systems: All systems reviewed & are unremarkable except as noted in HPI & below Physical Exam Physical Exam: Constitutional: WD/WN, sitting at bedside, vitals as above, NAD, sitting up in bed, pleasant, conversing easily Head: Normocephalic, Atraumatic Eyes: PERRL, conjunctivae normal, anicteric sclerae ENMT: external ear and nose normal, oropharynx normal Neck: trachea midline, no thyromegaly normal visual inspection Respiratory: normal respiratory effort, lungs clear to auscultation, no wheeze, rales, rhonchi. Normal insp/exp effort, no accessory muscle use Cardiovascular: bradycardic rate, regular rhythm, no murmur, no edema Vessels: no JVD or carotid bruit Chest: normal inspection of chest, no pain to palpation. Abdomen: + lap incisions x 4, CDI, normal bowel sounds, soft, nontender, no hepatosplenomegaly Musculoskeletal: no cyanosis or clubbing, extremities motor strength 5/5 Skin: no rashes, warm and dry normal turgor Neurologic: PERRL, EOMI, accommodation nl, no face palsy, no dysarthria CN's II-XI intact bilaterally and moves all extremities Psychiatric: A+Ox3, euthymic affect Lymphatic: no cervical or axillary lymphadenopathy : deferred Results & Data ([facility]) Vital Signs (Past 12 Hours) Vital Signs Temp Pulse Resp BP BP Pulse Ox O2 Del Method 11/06/21 14:00 37.5 C 68 18 171/76 H 100 Room Air 11/06/21 14:45 151/64 H 100 11/06/21 11:35 37.3 C 56 L 16 125/48 L 98 Room Air 11/06/21 10:30 55 L 151/69 H 100 11/06/21 10:15 189/76 H 11/06/21 10:00 60 20 180/61 H 173/75 H 99 Room Air 11/06/21 08:10 37.1 C 74 16 102/56 L 98 Room Air 11/06/21 03:37 36.9 C 64 16 116/50 L 98 Room Air Laboratory Results Short CBC 11/06/21 Range/Units 06:12 WBC 9.70 (4.8-10.8) K/ul Hgb 10.4 L (12.0-16.0) g/dl Hct 31.6 L (34.1-44.9) % Plt Count 253 (130-400) K/uL BMP 11/06/21 06:12 Sodium 139 Potassium 3.8 Chloride 109 H Carbon Dioxide 27 BUN 18 Creatinine 0.84 Glucose 138 H Calcium 8.9 Medications Administered Medication List Acetaminophen/Codeine Phosphate (Acetaminophen W/Codeine #3 1 Tab) 1 tab PO Q4H PRN PRN Reason: Pain Stop: 12/05/21 19:24 Last Admin: 11/06/21 06:41 Dose: 1 tab Documented By: Admin: 11/06/21 02:22 Dose: 1 tab Documented By: Admin: 11/05/21 20:35 Dose: 1 tab Documented By: CHELSIE Docusate Sodium (Docusate Sodium 100 Mg Cap) 100 mg PO BID TONA Stop: 12/05/21 20:59 Last Admin: 11/06/21 08:50 Dose: 100 mg Documented By: Admin: 11/05/21 20:35 Dose: 100 mg Documented By: CHELSIE Lactated Ringer's (Lr) 1,000 mls @ 125 mls/hr IV .Q8H TONA Stop: 12/05/21 10:29 Last Infusion: 11/05/21 19:48 Dose: 0 mls/hr Documented By: Admin: 11/05/21 16:53 Dose: 125 mls/hr Documented By: GISELL Ondansetron HCl (Ondansetron Inj 2 Mg/Ml 2 Ml Vial) 4 mg IV Q6H PRN PRN Reason: Nausea And Vomiting Stop: 12/05/21 10:15 Last Admin: 11/06/21 14:43 Dose: 4 mg Documented By: ANAMARIA Pantoprazole Sodium (Pantoprazole 40 Mg Tab) 40 mg PO BID TONA Stop: 12/06/21 20:59 Last Admin: 11/06/21 14:00 Dose: 40 mg Documented By: ANAMARIA Simethicone (Simethicone 80 Mg Chew) 80 mg PO TID PRN PRN Reason: Gas Stop: 12/05/21 10:15 Last Admin: 11/06/21 08:54 Dose: 80 mg Documented By: ANAMARIA Discontinued Medications Bupivacaine HCl (Bupivacaine 0.5 % 5 Mg/1 Ml Mpf 30ml Vial) Confirm Administered Dose 30 ml .ROUTE .STK-MED ONE Stop: 11/05/21 07:10 Last Admin: 11/05/21 09:43 Dose: 30 ml Documented By: OS Citric Acid/Sodium Citrate (Citric Acid/Sodium Citrate 15 Ml Udc) Confirm Administered Dose 15 ml .ROUTE .STK-MED ONE Stop: 11/06/21 10:27 Last Admin: 11/06/21 10:27 Dose: 15 ml Documented By: ANAMARIA Fentanyl Citrate (Fentanyl Citrate 100 Mcg/2 Ml Vial) 50 mcg IV Q5M PRN PRN Reason: PACU Use Only-Pain Stop: 11/05/21 15:02 Last Admin: 11/05/21 11:00 Dose: 50 mcg Documented By: Admin: 11/05/21 10:45 Dose: 50 mcg Documented By: Admin: 11/05/21 10:35 Dose: 50 mcg Documented By: SER Lactated Ringer's (Lr) 1,000 mls @ 15 mls/hr IV .Q24H TONA Stop: 11/06/21 05:59 Last Infusion: 11/05/21 07:12 Dose: 0 mls/hr Documented By: [email or web address] Admin: 11/05/21 06:19 Dose: 15 mls/hr Documented By: ANNEU Cefazolin Sodium (Ancef 2000mg) 2,000 mg in 15 mls @ 3.75 mls/min IV ONCE ONE Stop: 11/05/21 08:47 Last Admin: 11/05/21 08:44 Dose: 3.75 mls/min Documented By: [id number] Acetaminophen (Ofirmev) 1,000 mg in 100 mls @ 400 mls/hr IV NOW STA Stop: 11/06/21 14:38 Last Admin: 11/06/21 14:42 Dose: 400 mls/hr Documented By: LSS Methylene Blue (Methylene Blue 0.5% 10 Ml Vial) Confirm Administered Dose 50 mg .ROUTE .STK-MED ONE Stop: 11/05/21 07:10 Last Admin: 11/05/21 09:43 Dose: 7 mg Documented By: [id number] Miscellaneous (Tisseel Fibrin Sealant 10ml) 10 ml TOP ONCE ONE Stop: 11/05/21 09:20 Last Admin: 11/05/21 09:44 Dose: 10 ml Documented By: OS ECG Rate (beats per minute): 51 Rhythm: sinus bradycardia
[2021-11-06] MEDS ORDERED: FAMOTIDINE 20 MG in SYRINGE 3 ML IV ONE (15:30)
[2021-11-06 15:57] LABS: BUN Creatinine Ratio 19.3 (10-20); Calcium 9.1 mg/dl (8.5-10.1); Est GFR (African American) 84.5 ml/min; Est GFR (Non-African American) 72.9 ml/min; Potassium 3.7 mmol/L (3.5-5.1)
--- NOTE | 2021-11-06 16:14 | Electrocardiogram Report ---
Test Reason : Blood Pressure : / mmHG Vent. Rate : 051 BPM Atrial Rate : 051 BPM P-R Int : 178 ms QRS Dur : 084 ms QT Int : 446 ms P-R-T Axes : 066 014 073 degrees QTc Int : 411 ms Sinus bradycardia Cannot rule out Anterior infarct , age undetermined Abnormal ECG When compared with ECG of 12-AUG-2014 11:37, Minimal criteria for Anterior infarct are now Present Confirmed by Evert Adames ([id number]) on 11/06/2021 4:13:59 PM Referred By: Lui Martinez Confirmed By:Evert Adames
--- NOTE | 2021-11-06 16:16 | XRay Report ---
SINGLE VIEW CHEST CLINICAL HISTORY: Atypical chest pain. FINDINGS: An AP, portable, upright chest radiograph is compared to study dated 04/11/2015 and correlat ed with chest CT dated 06/07/2011. The cardiomediastinal silhouette is unremarkable. The lungs and ple ural spaces are clear. No pneumothorax is seen. The skeletal structures are osteopenic. The bony thor ax is grossly intact. Spondylotic change is noted in the thoracic spine. There is calcific tendinopat hy of the left shoulder. IMPRESSION: No active disease in the chest. ACT 112: Negative or not required by law. Electronically signed by: Mike Varner M.D. 11/06/2021 4:15 PM
--- NOTE | 2021-11-06 16:25 | Anesthesiology Consultation ---
Date of Service November 06, 2021 Assessment & Plan (1) Encounter for pre-operative examination: Chart Review Chart Review: Acceptable Risk for Surgery (Urgent procedure) History Surgery Operation Date: 11/05/21 07:00 Proposed Procedures p Total Laparoscopic Hysterectomy, Bilateral Salpingo-Oophorectomy, Cystoscopy, Possible Laparotomy - Lui Martinez MD Height/Weight Height: 5 ft 4 in Weight: 79.5 kg Allergies Allergy/AdvReac Type Severity Reaction Status Date / Time bee venom protein (honey bee) Allergy Severe HIVES AND Verified 11/05/21 05:43 DIFFICULTY BREATHING Cipro Allergy Intermediate heart Verified 10/25/17 08:29 palpatations ciprofloxacin Allergy Intermediate heart Verified 11/05/21 05:43 palpatations clarithromycin Allergy Intermediate NAUSEA AND Verified 11/05/21 05:43 DELUSIONAL clindamycin Allergy Intermediate "FELT LIKE Verified 11/05/21 05:43 MY HEAD EXPLODE" doxepin Allergy Intermediate BURNING TO Verified 11/05/21 05:43 APPLICATION SITE AND JITTERINESS doxycycline Allergy Intermediate ALTERED Verified 11/05/21 05:43 MENTAL STATUS oxycodone Allergy Intermediate HALLUCINATI Verified 11/05/21 05:43 ONS quetiapine Allergy Intermediate HALLUCINATIONS, Verified 11/05/21 05:43 JITTERYNESS valproic acid Allergy Intermediate "LOOSE Verified 11/05/21 05:43 MIND" Penicillins Allergy Unknown Unknown- Verified 11/05/21 05:43 A CHILD gabapentin AdvReac Intermediate Extremely Verified 11/05/21 05:43 tired hydroxyzine AdvReac Intermediate Slept for Verified 11/05/21 05:43 days indomethacin AdvReac Intermediate "SPACED Verified 11/05/21 05:43 OUT" Macrolide Antibiotics AdvReac Intermediate HEADACHE Verified 11/05/21 05:43 AND NAUSEA ranitidine AdvReac Intermediate Slept for Verified 11/05/21 05:43 days alprazolam AdvReac Mild JITTERY Verified 11/05/21 05:43 erythromycin base AdvReac Mild NAUSEA Verified 11/05/21 05:43 Sulfa (Sulfonamide AdvReac Mild UPSET Verified 11/05/21 05:43 Antibiotics) STOMACH Medications Home Medications Medication Instructions Recorded Confirmed Last Taken cyanocobalamin (vitamin B-12) 1,000 mcg PO QAM 05/11/18 11/05/21 10/28/21 1,000 mcg tablet (Vitamin B-12) levonorgestrel 20 mcg/24 hours (7 1 dose intrauterine DIRECTED 05/11/18 11/05/21 08/25/21 yrs) 52 mg intrauterine device (Mirena) levothyroxine 137 mcg tablet 112 mcg PO QAM 05/11/18 11/05/21 11/05/21 04:30 lithium carbonate 300 mg tablet 450 mg PO QAM 05/11/18 11/05/21 11/05/21 04:30 lorazepam 0.5 mg tablet 0.5 mg PO BID PRN Anxiety 05/11/18 11/05/21 10/30/19 ropinirole 1 mg tablet 2 mg PO HS 12/03/18 11/05/21 11/04/21 22:00 ipratropium 0.5 mg-albuterol 3 mg 3 ml inhalation QID PRN Shortness 04/07/19 11/05/21 10/30/19 (2.5 mg base)/3 mL nebulization Of Breath Or Wheezing soln buspirone 10 mg tablet 10 mg PO QAM 10/28/21 11/05/21 11/05/21 04:30 multivitamin with minerals-folic 2 tab PO QAM 10/28/21 11/05/21 10/28/21 acid 200 mcg chewable tablet (Multivitamin Gummies) ropinirole 0.5 mg tablet 0.5 mg PO DAILY PRN Restless Leg(S) 10/28/21 11/05/21 11/04/21 22:00 semaglutide 1 mg/dose (2 mg/1.5 1 mg subcut WK 10/28/21 11/05/21 10/30/21 mL) subcutaneous pen injector (Ozempic) acetaminophen 300 mg-codeine 30 mg 1 tab PO Q4H #30 tabs 11/06/21 Unknown tablet docusate sodium 100 mg capsule 100 mg PO BID #30 caps 11/06/21 Unknown fluconazole 150 mg tablet 150 mg PO ONCE #3 tabs 11/06/21 Unknown (Diflucan) omeprazole 20 mg capsule,delayed 20 mg PO DAILY #30 caps 11/06/21 Unknown release simethicone 80 mg chewable tablet 80 mg PO TID #60 tabs 11/06/21 Unknown (Gas Relief (simethicone)) Active Medications Generic Name Dose Route Start Last Admin Trade Name Freq PRN Reason Stop Dose Admin Acetaminophen/Codeine Phosphate 1 tab 11/05/21 19:25 11/06/21 06:41 Acetaminophen W/Codeine #3 1 Tab PO 12/05/21 19:24 1 tab Q4H PRN Administration Pain Docusate Sodium 100 mg 11/05/21 21:00 11/06/21 08:50 Docusate Sodium 100 Mg Cap PO 12/05/21 20:59 100 mg BID TONA Administration Lactated Ringer's 1,000 mls @ 125 mls/hr 11/05/21 10:30 11/05/21 19:48 Lr IV 12/05/21 10:29 Infused .Q8H TONA Infusion Ondansetron HCl 4 mg 11/05/21 10:16 11/06/21 14:43 Ondansetron Inj 2 Mg/Ml 2 Ml Vial IV 12/05/21 10:15 4 mg Q6H PRN Administration Nausea And Vomiting Pantoprazole Sodium 40 mg 11/06/21 21:00 11/06/21 14:00 Pantoprazole 40 Mg Tab PO 12/06/21 20:59 40 mg BID TONA Administration Simethicone 80 mg 11/05/21 10:16 11/06/21 08:54 Simethicone 80 Mg Chew PO 12/05/21 10:15 80 mg TID PRN Administration Gas NPO Date Last Intake of Fluids: 11/04/21 Time Last Intake of Fluids: 22:00 Last Intake of Fluids Comment: 0430 sip water for meds Date Last Intake of Solids: 11/04/21 Time Last Intake of Solids: 20:00 Past Medical History Medical History Anemia Anxiety Asthma LAST USE NEBULIZER 1 YR AGO Bipolar disorder Cancer UTERINE Cardiac murmur HX Degenerative disc disease Diabetes mellitus, type 2 IDDM GERD (gastroesophageal reflux disease) UNDER CONTROL Hyperlipemia HX Hypertension HX Hypothyroidism Kidney mass NOTED ON ULTRASOUND-[facility]) -F/U [place]FF[place] Osteoarthritis Restless leg Sleep apnea CPAP Past Family History Family History Father Family history of diabetes mellitus Sister Family history of diabetes mellitus Brother Family history of diabetes mellitus Mother Family history of diabetes mellitus Father Family history of esophageal cancer Brother Family history of esophageal cancer Past Surgical History Surgical History History of anesthesia reaction REPORTS SHE WOKE UP DURING KNEE REPLACEMENT SURGERY History of cholecystectomy WITH HIATAL HERNIA REPAIR History of colonoscopy History of esophagogastroduodenoscopy (EGD) History of gastric bypass 2020 [facility]-200 LB WT LOSS SINCE History of herniorrhaphy History of tooth extraction History of total knee replacement R/L Social History Smoking Status: Never smoker Do You Dip or Chew Tobacco: No Hx Alcohol Use: No Hx Substance Use: No substance use type: does not use Physical Exam Vital Signs Last Vital Signs Temp 37.5 C 11/06/21 14:00 Pulse 68 11/06/21 14:00 Resp 18 11/06/21 14:00 BP 151/64 H 11/06/21 14:45 Pulse Ox 100 11/06/21 14:45 O2 Del Method 11/06/21 14:00 O2 Flow Rate 1 11/05/21 13:23 Testing Laboratory Results 11/06/21 06:12 11/06/21 15:22 Blood Type A Positive 11/05/21 05:43 Antibody Screen NEGATIVE 11/05/21 05:43
[2021-11-06 16:41] LABS: Troponin I High Sensitivity 10.8 pg/ml (0-14)
--- NOTE | 2021-11-06 17:18 | History & Physical Report ---
Date of Service November 06, 2021 Assessment & Plan Admission and Anticipated Discharge Date Admission Date: November 05, 2021 History of Present Illness Primary Care Provider: Nam Squires DO Pt with h/o RYGB, h/o fundoplication and vagotomy now ws/p hysterectomy. She ate meat last night, which she felt lodge and pass, then ate eggs and rodriguez this am, which she vomited. Since this am, she has been unable to tolerate her secretions or take PO. She has no prior h/o dysphagia. Last EGD in May unremarkable. pleasant, Comfortable CV: RRR Resp: CTA Abd: soft NT A/P: Possible food impaction -- EGD Allergies Allergy/AdvReac Type Severity Reaction Status Date / Time bee venom protein (honey bee) Allergy Severe HIVES AND Verified 11/05/21 05:43 DIFFICULTY BREATHING Cipro Allergy Intermediate heart Verified 10/25/17 08:29 palpatations ciprofloxacin Allergy Intermediate heart Verified 11/05/21 05:43 palpatations clarithromycin Allergy Intermediate NAUSEA AND Verified 11/05/21 05:43 DELUSIONAL clindamycin Allergy Intermediate "FELT LIKE Verified 11/05/21 05:43 MY HEAD EXPLODE" doxepin Allergy Intermediate BURNING TO Verified 11/05/21 05:43 APPLICATION SITE AND JITTERINESS doxycycline Allergy Intermediate ALTERED Verified 11/05/21 05:43 MENTAL STATUS oxycodone Allergy Intermediate HALLUCINATI Verified 11/05/21 05:43 ONS quetiapine Allergy Intermediate HALLUCINATIONS, Verified 11/05/21 05:43 JITTERYNESS valproic acid Allergy Intermediate "LOOSE Verified 11/05/21 05:43 MIND" Penicillins Allergy Unknown Unknown- Verified 11/05/21 05:43 A CHILD gabapentin AdvReac Intermediate Extremely Verified 11/05/21 05:43 tired hydroxyzine AdvReac Intermediate Slept for Verified 11/05/21 05:43 days indomethacin AdvReac Intermediate "SPACED Verified 11/05/21 05:43 OUT" Macrolide Antibiotics AdvReac Intermediate HEADACHE Verified 11/05/21 05:43 AND NAUSEA ranitidine AdvReac Intermediate Slept for Verified 11/05/21 05:43 days alprazolam AdvReac Mild JITTERY Verified 11/05/21 05:43 erythromycin base AdvReac Mild NAUSEA Verified 11/05/21 05:43 Sulfa (Sulfonamide AdvReac Mild UPSET Verified 11/05/21 05:43 Antibiotics) STOMACH Home Medications Medication Instructions Recorded Confirmed Type cyanocobalamin (vitamin B-12) 1,000 mcg PO QAM 05/11/18 11/05/21 History 1,000 mcg tablet (Vitamin B-12) levonorgestrel 20 mcg/24 hours (7 1 dose intrauterine DIRECTED 05/11/18 11/05/21 History yrs) 52 mg intrauterine device (Mirena) levothyroxine 137 mcg tablet 112 mcg PO QAM 05/11/18 11/05/21 History lithium carbonate 300 mg tablet 450 mg PO QAM 05/11/18 11/05/21 History lorazepam 0.5 mg tablet 0.5 mg PO BID PRN Anxiety 05/11/18 11/05/21 History ropinirole 1 mg tablet 2 mg PO HS 12/03/18 11/05/21 History ipratropium 0.5 mg-albuterol 3 mg 3 ml inhalation QID PRN Shortness 04/07/19 11/05/21 History (2.5 mg base)/3 mL nebulization Of Breath Or Wheezing soln buspirone 10 mg tablet 10 mg PO QAM 10/28/21 11/05/21 History multivitamin with minerals-folic 2 tab PO QAM 10/28/21 11/05/21 History acid 200 mcg chewable tablet (Multivitamin Gummies) ropinirole 0.5 mg tablet 0.5 mg PO DAILY PRN Restless Leg(S) 10/28/21 11/05/21 History semaglutide 1 mg/dose (2 mg/1.5 1 mg subcut WK 10/28/21 11/05/21 History mL) subcutaneous pen injector (Ozempic) acetaminophen 300 mg-codeine 30 mg 1 tab PO Q4H #30 tabs 11/06/21 Rx tablet docusate sodium 100 mg capsule 100 mg PO BID #30 caps 11/06/21 Rx fluconazole 150 mg tablet 150 mg PO ONCE #3 tabs 11/06/21 Rx (Diflucan) omeprazole 20 mg capsule,delayed 20 mg PO DAILY #30 caps 11/06/21 Rx release simethicone 80 mg chewable tablet 80 mg PO TID #60 tabs 11/06/21 Rx (Gas Relief (simethicone)) Past Med/Surg History Medical History Anemia Anxiety Asthma LAST USE NEBULIZER 1 YR AGO Bipolar disorder Cancer UTERINE Cardiac murmur HX Degenerative disc disease Diabetes mellitus, type 2 IDDM GERD (gastroesophageal reflux disease) UNDER CONTROL Hyperlipemia HX Hypertension HX Hypothyroidism Kidney mass NOTED ON ULTRASOUND-[facility]) -F/U JEFFERY Osteoarthritis Restless leg Sleep apnea CPAP Surgical History History of anesthesia reaction REPORTS SHE WOKE UP DURING KNEE REPLACEMENT SURGERY History of cholecystectomy WITH HIATAL HERNIA REPAIR History of colonoscopy History of esophagogastroduodenoscopy (EGD) History of gastric bypass 2020 [facility]-200 LB WT LOSS SINCE History of herniorrhaphy History of tooth extraction History of total knee replacement R/L Family History Father Family history of diabetes mellitus Sister Family history of diabetes mellitus Brother Family history of diabetes mellitus Mother Family history of diabetes mellitus Father Family history of esophageal cancer Brother Family history of esophageal cancer Social History Smoking Status: Never smoker Second Hand Exposure: Yes (PARENT SMOKED); Do You Dip or Chew Tobacco: No; Hx Alcohol Use: No Hx Substance Use: No Preferred Language: Estonian Communication Ability: Effective Paving Foreman Required: No Beliefs That Will Affect Care: None Current Living Situation: Spouse current occupational status: other 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 Other Information That Helps Us Care for You: No Feels Safe at Home: Yes Safety Concerns: Feels Safe At This Time Assistive Devices: Glasses Assistive Devices Comment: CAP FRONT UPPER Results & Data Results & Data ([facility]) Vital Signs (Past 12 Hours) Vital Signs Temp Pulse Resp BP BP Pulse Ox O2 Del Method 11/06/21 14:00 37.5 C 68 18 171/76 H 100 Room Air 11/06/21 14:45 151/64 H 100 11/06/21 11:35 37.3 C 56 L 16 125/48 L 98 Room Air 11/06/21 10:30 55 L 151/69 H 100 11/06/21 10:15 189/76 H 11/06/21 10:00 60 20 180/61 H 173/75 H 99 Room Air 11/06/21 08:10 37.1 C 74 16 102/56 L 98 Room Air Code Status & VTE Plan VTE Prophylaxis Plan VTE Prophylaxis will be ordered: Yes
--- NOTE | 2021-11-06 17:37 | History & Physical Bridge Note ---
Date of Service November 06, 2021 History & Physical Bridge Note I have examined the patient, reviewed the History & Physical and in the interval since the performance of the History & Physical I have noted the following changes of clinical significance: no changes noted
[2021-11-06] MEDS ORDERED: ONDANSETRON INJ 2 MG/ML 2 ML VIAL IV PRN (17:43)
[2021-11-06] MEDS ORDERED: ATROPINE SULFATE 0.1 MG/ML 10ML SYR IV PRN (17:43)
[2021-11-06] MEDS ORDERED: fentaNYL citrate 100 MCG/2 ML VIAL IV PRN (17:43)
[2021-11-06] MEDS ORDERED: PROMETHAZINE HCL 6.25 MG in SODIUM CHLORIDE 0.9% 50 ML IV PRN (17:43)
[2021-11-06] MEDS ORDERED: fentaNYL citrate 100 MCG/2 ML VIAL ONE (18:14)
--- NOTE | 2021-11-06 18:27 | GI REPORT ---
Patient Name: Joyce Smith Procedure Date: 11/06/2021 5:14 PM Date of : 1965 Admit Type: Inpatient Age: 56 Gender: Female Attending MD: Mitzi Kam MD Procedure: Upper GI endoscopy Providers: Mitzi Kam MD Referring MD: Lui Martinez Indications: Foreign body in the esophagus Medicines: See the Anesthesia note for documentation of the administered medications Complications: No immediate complications. Estimated Blood Loss: Estimated blood loss: none. Procedure: Pre-Anesthesia Assessment: - ASA Grade Assessment: III - A patient with severe systemic disease. After obtaining informed consent, the endoscope was passed under direct vision. Throughout the procedure, the patient's blood pressure, pulse, and oxygen saturations were monitored continuously. The Scope was introduced through the mouth, and advanced to the jejunum. The upper GI endoscopy was accomplished without difficulty. The patient tolerated the procedure well. Findings: There was no retained food or fluid in the esophagus. There was a small gastric pouch, filled with semi solid food. There was no bezoaar. The gastro-enteric anastamosis was unremarkable, without stricture or ulcer. The jejunum was unremarkable. I extracted some food out with a net, and washed the remaining food out of the gastric pouch using lavage. Impression: Gastroparesis. NO food impaction or bezooar. Recommendation: - Discharge patient to floor. Begin Reglan 5 BID. Minimize narcs; if narcotics are necessary, can use Relistor. Clear liquids, then advance to soft mech as tolerated. Mitzi Kam M.D. Mitzi Kam MD 11/06/2021 6:27:24 PM This report has been signed electronically. Note Initiated On: 11/06/2021 5:14 PM Number of Addenda: 0 I attest to the content of the Intraoperative Record and orders documented therein, exceptions below {[id number]}
[2021-11-06] MEDS ORDERED: METOCLOPRAMIDE HCL INJ 5 MG/ML 2 ML VIAL IV ONE (18:34)
[2021-11-06] MEDS ORDERED: SUCCINYLCHOLINE CHLORIDE 20 MG/ML 10 ML VIAL IV ONE (18:38)
[2021-11-06] MEDS ORDERED: PROPOFOL IV EMULSION 10 MG/ML 20 ML VIAL IV ONE (18:38)
[2021-11-06] MEDS ORDERED: LIDOCAINE 2% MPF LOCAL 5 ML VIAL INFIL ONE (18:38)
[2021-11-06] MEDS ORDERED: ONDANSETRON INJ 2 MG/ML 2 ML VIAL ONE (18:38)
--- NOTE | 2021-11-06 18:39 | Gastroenterology Progress Note ---
Date of Service November 06, 2021 Assessment & Plan Admission and Anticipated Discharge Date Admission Date: November 05, 2021 Subjective EGD showed no food bolus, bezoaar or stricture at GJ or esophagus. She likely has gastroparesis. This may be aggravated by narcotics, Ozempic. RECS: Clears, then adv to soft mech diet as tolerated. I have held her oral meds, but please resume tomorrow if she is tolerating clears. i have held her narcotics - if narcotics are needed for pain control, please consider concomitant use of Relistor. I have held her Ozempic, as it may delay gastric emptying. Please follow bld sugars, and can resume on discharge. I have prescribed Reglan 5 BID. She has a h/o psych disease and restless legs, but as she has a listed allergy to macrolide abx, there is no other clear alternative. Would limit use of this med to low dose. Please follow for delirium, mood disturtbance, or flare of restless legs. If she develops these symptoms, please discontinue this med. Results & Data ([facility]) Vital Signs (Past 12 Hours) Vital Signs Temp Pulse Resp BP BP Pulse Ox O2 Del Method 11/06/21 17:00 37.6 C H 54 L 16 131/64 99 Room Air 11/06/21 14:00 37.5 C 68 18 171/76 H 100 Room Air 11/06/21 14:45 151/64 H 100 11/06/21 11:35 37.3 C 56 L 16 125/48 L 98 Room Air 11/06/21 10:30 55 L 151/69 H 100 11/06/21 10:15 189/76 H 11/06/21 10:00 60 20 180/61 H 173/75 H 99 Room Air 11/06/21 08:10 37.1 C 74 16 102/56 L 98 Room Air
--- NOTE | 2021-11-06 18:51 | Anesthesiology Progress Note ---
Date of Service November 06, 2021 Anesthesia Post Procedure Vital Signs Vital Signs: Temp Pulse Pulse Resp BP BP Pulse Ox 11/06/21 18:40 55 L 16 145/63 H 95 11/06/21 18:30 36.7 C 59 L 16 151/67 H 97 11/06/21 17:00 37.6 C H 54 L 16 131/64 99 11/06/21 14:00 37.5 C 68 18 171/76 H 100 11/06/21 14:45 151/64 H 100 11/06/21 11:35 37.3 C 56 L 16 125/48 L 98 11/06/21 10:30 55 L 151/69 H 100 11/06/21 10:15 189/76 H 11/06/21 10:00 60 20 180/61 H 173/75 H 99 11/06/21 08:10 37.1 C 74 16 102/56 L 98 11/06/21 03:37 36.9 C 64 16 116/50 L 98 11/05/21 22:54 37.2 C 60 16 103/53 L 96 11/05/21 19:10 37.2 C 61 61 H 134/69 98 O2 Del Method 11/06/21 18:40 Room Air 11/06/21 18:30 Room Air 11/06/21 17:00 Room Air 11/06/21 14:00 Room Air 11/06/21 14:45 11/06/21 11:35 Room Air 11/06/21 10:30 11/06/21 10:15 11/06/21 10:00 Room Air 11/06/21 08:10 Room Air 11/06/21 03:37 Room Air 11/05/21 22:54 Room Air 11/05/21 19:10 Room Air Pain Intensity Abdomen: Pain Intensity: 4 Transfer of Care Handoff Completed per policy Notes Mental Status: alert / awake / arousable Patient Amnestic to Procedure: Yes Nausea / Vomiting: adequately controlled Pain: adequately controlled Airway Patency, RR, SpO2: stable & adequate BP & HR: stable & adequate Hydration State: stable & adequate Anesthetic Complications: no major complications apparent
--- NOTE | 2021-11-06 21:44 | Discharge Summary (DS) ---
DATE OF ADMISSION: 11/05/2021 DATE OF DISCHARGE: 11/06/2021 HISTORY OF PRESENT ILLNESS: The patient is status post endometrial intraepithelial neoplasia times m any years. The patient had IUD Mirena placed because of her morbid obesity. The patient has undergo ne gastric bypass and lost about ____ pounds. Decision was therefore made to perform hysterectomy. On 11/05/2021, the patient presented to [facility] where she underwent total laparo scopic hysterectomy with bilateral salpingo-oophorectomy and cystoscopy. Surgery details are in the surgical note. This morning, patient is doing well and has been discharged home in stable condition. PAST MEDICAL HISTORY: The patient has a history of anemia, anxiety, asthma, bipolar disorder, degene rative disk disease, type 2 diabetes, hyperlipidemia, hypertension, hypothyroidism, osteoarthritis an d sleep apnea. PAST SURGICAL HISTORY: The patient has a history of cholecystectomy, colonoscopy, esophagogastroduod enoscopy, history of gastric bypass, history of herniorrhaphy, dental procedures and total knee repla cement. ALLERGIES: THE PATIENT HAS NUMEROUS ALLERGIES, ____ 1. CIPRO. 2. CLARITHROMYCIN. 3. CLINDAMYCIN. 4. DOXYCYCLINE. 5. OXYCODONE. 6. VALPROIC ACID. FAMILY HISTORY: Noncontributory. REVIEW OF SYSTEMS: Negative except as dictated in the HPI. PHYSICAL EXAMINATION: VITAL SIGNS: Blood pressure is 102/56. HEART: S1 and S2, regular rhythm and rate. LUNGS: Clear to auscultation bilaterally. ABDOMEN: Positive bowel sounds. Incision sites are clean, dry, and intact. EXTREMITIES: No cyanosis, clubbing or edema. LABORATORIES: Hemoglobin is 10.4, hematocrit is 31.6. CONDITION ON DISCHARGE: Stable. OPERATIONS: Laparoscopic total hysterectomy, bilateral salpingo-oophorectomy, and cystoscopy. DISCHARGE DIAGNOSIS: Same as above, postoperative. PLAN ON DISCHARGE: The patient is discharged home in stable condition with instructions on activity, diet, and followup appointment. Job ID: [id number]
[2021-11-07] MEDS: IBUPROFEN 600 MG TAB PO PRN ×2 (02:12→10:21)
[2021-11-07 07:32] LABS: BUN Creatinine Ratio 19.7 (10-20); Creatinine Clr Calc Pharmacy 83.3 ml/min; Est GFR (African American) 100.9 ml/min; Est GFR (Non-African American) 87.1 ml/min; Potassium 3.6 mmol/L (3.5-5.1)
[2021-11-07] MEDS ORDERED: METOCLOPRAMIDE HCL 5 MG TABLET PO SCH (09:00)
--- NOTE | 2021-11-07 10:07 | Obstetrical Progress Note ---
Date of Service November 07, 2021 Assessment & Plan (1) S/P laparoscopic supracervical hysterectomy: s/p lap Hyst with BSO Day #2 Pt doing well (2) Food impaction of esophagus: s/p EGD gy GI Pt doing well Gastroparesis Tolerated breakfast this am Will consider disch asper GI Subjective Review of Systems All systems reviewed & are unremarkable except as noted in HPI & below Physical Exam Constitutional WD/WN, vitals as above Eyes PERRL, conjunctivae normal, anicteric sclerae ENMT external ear and nose normal, oropharynx normal Neck trachea midline, no thyromegaly Respiratory normal respiratory effort, lungs clear to auscultation Cardiovascular RRR, no murmur, no edema Chest (Breasts) normal inspection/palpation of breasts Gastrointestinal (Abdomen) normal bowel sounds, soft, nontender, no hepatosplenomegaly Musculoskeletal no cyanosis or clubbing, extremities motor strength 5/5 Skin + incision (Incision clean,dry and intact) Neurologic patellar DTR's 2+ bilat, sensation intact Psychiatric A+Ox3, euthymic affect Genitourinary no vaginal lesions, no adnexal mass Lymphatic no cervical or axillary lymphadenopathy Results & Data ([facility]) Vital Signs (Past 12 Hours) Vital Signs Temp Pulse Resp BP BP Pulse Ox O2 Del Method 11/07/21 08:05 36.8 C 54 L 18 128/66 99 Room Air 11/07/21 03:37 36.8 C 67 18 126/65 99 Room Air 11/06/21 22:55 37.1 C 62 16 123/68 98 Room Air 11/06/21 22:25 36.8 C 57 L 16 127/61 95 Room Air
[2021-11-07] MEDS ORDERED: ACETAMINOPHEN 500 MG TAB PO PRN (12:20)
--- NOTE | 2021-11-07 14:14 | Hospitalist Progress Note ---
Date of Service November 07, 2021 Assessment & Plan (1) Food impaction of esophagus: (2) Chest pain: (3) Nausea and vomiting: (4) S/P laparoscopic supracervical hysterectomy: (5) Diabetes: Plan This is a 56-year-old female who has significant past medical history of T2DM, diabetic neuropathy, retinopathy, history of obesity status post gastric bypass patient lost approximately 200 pounds back in 2019, hypothyroidism, hyperlipidemia, bipolar disorder, COLTEN on CPAP, asthma, diet-controlled hypertension, or less who underwent elective laparoscopic hysterectomy by Dr. Martinez on 11/05/21. Pt with recurrent vomiting since 9 a.m. occurring with solids and liquids, also emesis of undigested food leads to concern for food bolus/impaction. Pt has hx of gastric by pass 2 years ago, also hx of paraesophageal hernia repair and vagus nerve transection b/l in March of 2021. Hx of multiple egd, last in 05/2021 which was normal Chest Pain Possible Food bolus hx of gastric bypass, hx of paraesophageal hernia repair with vagus nerve transection CXR without acute findings. Troponin WNL, lipase WNL, EKG without acute ST or T changes. Electrolytes WNL. Patient was taken to the scope for likely food bolus impaction, underwent EGD scope, has been chest free since then. GI evaluated, appreciate recommendation. Patient to continue with soft mechanical diet as tolerated and medication recommendations as per GI. Patient with no further chest pain. Patient hemodynamically stable. T2DM controlled on once weekly ozempic last a1c 7.3 on 08/03/21 continue to monitor blood glucose may seek spike after administration of glucagon S/P Laparoscopic hysterectomy doing well post operatively Dr. Martinez managing COLTEN cpap at , pt has own from home DVT ppx: add scds for now Dispo: Per primary team. PCP: [facility] Full Code Admission and Anticipated Discharge Date Admission Date: November 06, 2021 Subjective Patient seen and examined at bedside as a follow-up of possible food bolus impaction in the background of likely gastroparesis. Patient was sitting up in bed, on room air, NAD, reports tolerating diet well, has not had any chest pain after EGD scope yesterday. Patient denies any headache/dizziness/sore throat/cough/belly pain/other review of symptoms. Physical Exam Physical Exam: GENERAL: Alert and oriented x3. NAD, on RA. HEENT: No pallor, no icterus. Pupils equal, round and reactive to light. Oral mucosa moist. NECK: No JVD, no neck masses. HEART: S1 and S2 heard. Regular rate and rhythm. No murmur, no gallop. RESPIRATORY SYSTEM: Normal AP diameter. No accessory muscle use. No wheezing, no crackles. ABDOMEN: Soft, bowel sounds present, nontender, no distention. Well healing lap incisions. CENTRAL NERVOUS SYSTEM: No facial droop. Speech is clear. Obeys simple commands. Moves extremities. EXTREMITIES: No edema, no erythema seen. Results & Data Results & Data ([facility]) Vital Signs (Past 12 Hours) Vital Signs Temp Pulse Resp BP BP Pulse Ox O2 Del Method 11/07/21 08:05 36.8 C 54 L 18 128/66 99 Room Air 11/07/21 03:37 36.8 C 67 18 126/65 99 Room Air
[2021-11-07] MEDS: DOCUSATE SODIUM 100 MG CAP PO SCH (14:22)
[2021-11-07] MEDS: PANTOprazole 40 MG TAB PO SCH (14:23)
[2021-11-07 14:34] VITALS: TEMP 98.1; O2SAT 100
[2021-11-07] MEDS ORDERED: amLODIPine BESYLATE 5 MG TAB PO ONE (16:49)
[2021-11-07 17:32] VITALS: PULSE 52
[2021-11-07 18:20] VITALS: BP 124/62
[2021-11-08] MEDS ORDERED: amLODIPine BESYLATE 5 MG TAB PO SCH (09:00)
== END 2021-11-07 19:14 | disposition home or self-care (01) | DRG 743 ==
LOC: ASU 05:26 → 4E1 05:26
DX: Z80.0 Family history of malignant neoplasm of digestive organs; Z30.432 Encounter for removal of intrauterine contraceptive device; Z87.19 Personal history of other diseases of the digestive system; Z88.6 Allergy status to analgesic agent; Z88.5 Allergy status to narcotic agent; N90.5 Atrophy of vulva; Z91.030 Bee allergy status; Z98.84 Bariatric surgery status; D25.1 Intramural leiomyoma of uterus; Z98.890 Other specified postprocedural states; Z80.52 Family history of malignant neoplasm of bladder; G47.33 Obstructive sleep apnea (adult) (pediatric); Z79.890 Hormone replacement therapy; F31.9 Bipolar disorder, unspecified; Z80.41 Family history of malignant neoplasm of ovary; E11.43 Type 2 diabetes mellitus with diabetic autonomic (poly)neuropathy; E03.9 Hypothyroidism, unspecified; N95.2 Postmenopausal atrophic vaginitis; N80.3 Endometriosis of pelvic peritoneum; Z79.899 Other long term (current) drug therapy; N80.1 Endometriosis of ovary; Z88.0 Allergy status to penicillin; N85.02 Endometrial intraepithelial neoplasia [EIN]; G25.81 Restless legs syndrome; Z88.8 Allergy status to other drugs, medicaments and biological substances; Z88.1 Allergy status to other antibiotic agents; Z88.2 Allergy status to sulfonamides

== ENCOUNTER 2023-04-01 23:24 | Observation (INO) ==
--- OUTSIDE RECORDS SUMMARY | 2023-04-01 23:30 | External Medical Summary | Summary of Care ---
Author Name Unknown Organization [facility] Address [address] [address] Phone [phone] Care Team Providers Care Electrician Rectifier Maintenance Name Role Phone Teodoro Galaviz Primary Care Provider Reason for Visit * Reason Comments Dosage Adjustment In Person (Anticoag Cl inic) Diabetes Management Encounter Details Date Type Department Care Team (Late st Contact Info) Description 03/29/2023 11:30 AM EST Office Visit Pharmacy, [place] [address] [place] [address] [facility] [address] [place] [address] Type 2 diabetes mellitus with hemoglobin A1c goal of less than 7.0% ([facility])* Allergies Active Allergy Reactions Criticality Noted Date Comments Alprazolam 02/10/2000 Xanax Hydroxyzine Hcl Hypotension High 06/30/2010 Bee Venom High 01/17/2019 Other reaction(s): HIVES AND DIFFICULTY BREATHING Ciprofloxacin 04/11/2015 Palpitations Clarithromycin 02/10/2000 Delusional and nausea Clindamycin Other (Please comment) Low 12/25/2012 Strange feeling in head per patient Divalproex Sodium High 04/02/2013 Anxious ,feels like she's loosing her mind Doxycycline Neuro complications (Please comment) 01/17/2013 Altered mental status Nitrofurantoin Monohyd Macro High 06/05/2014 Headache,nausea Oxycodone Hcl Other (Please comment) 12/07/2010 Altered MS Penicillins 02/10/2000 Pt says no idea what happens. Pt thinks a rash as a very young child age 7-8 Quetiapine High 01/17/2019 Other reaction(s): HALLUCINATIONS, JITTERYNESS Ranitidine Hcl Seizure High 06/30/2010 Quetiapine Fumarate High 06/05/2014 Jittery, cant sit still Sulfa Antibiotics 02/10/2000 Upset stomach Valproic Acid High 01/17/2019 Other reaction(s): "LOOSE MIND" Doxepin Hcl Other (Please comment) 10/06/2014 Caused burning to application site, jitteriness documented as of this encounter (statuses as of 03/29/2023) Medications Medication Sig Dispensed Refills Start Date End Date Status BD INSULIN SYRINGE ULTRAFINE 30G X 1/2" 0.3 ML MISC As directed 0 5 Active Glucose Blood (TAYA CONTOUR NEXT TEST) STRPIndications:DM type 2, not at goal (HCC) Use to test blood sugar 6 times daily dx e11.9 540 Strip 3 9 Active CPAP every night at bedtime. 0 Active Timnath Carbonate ER 450 MG Oral Tablet Extended Release (Lithobid ER) Take 1 Tablet by mouth in the morning. In the morning.. 0 3 Active traMADol HCl 50 MG Oral Tablet (Ultram)Indication s:DDD (degenerative disc disease), cervical,Thoracic degenerative disc disease,Lumbar degenerative disc disease,Primary osteoarthritis of left foot Take 1 Tablet by mouth every 6 hours as needed for Pain, Severe. 30 Tablet 0 3 Active Syringe 25G X 1" 3 MLIndications:B12 deficiency Use as directed for B12 injection once monthly 50 Each 0 3 Active Triamcinolone Acetonide 0.1 % External Cream (Aristocort)Indica tions:Intrinsic atopic dermatitis Apply topically to affected area 2 times a day. To affected area arm and leg. 60 g 5 3 Active Cyanocobalamin 1000 MCG/ML Injection Solution (Cyanocobalamin)In dications:B12 deficiency INJECT DIRECTED 1,000 MCG EVERY 30 DAYS . 3 mL 3 3 Active Diclofenac Sodium 1 % External Gel Apply topically to affected area. Apply to effected areas 0 Active Vitamin C Adult Gummies 125 MG Oral Tablet Chewable (Ascorbic Acid) Take by mouth. 0 Active Nystatin 087781 UNIT/GM External Powder (Nystop)Indication s:Tinea cruris Apply topically to affected area 3 times a day. Apply to affected area skin folds 60 g 0 3 Active Pantoprazole Sodium 40 MG Oral Tablet Delayed Release (Protonix)Indicati ons:Gastroesophage al reflux disease without esophagitis Take 1 Tablet by mouth in the morning. 90 Tablet 3 3 Active Aspirin 81 MG Oral Tablet Delayed ReleaseIndications :Chest tightness Take 1 Tablet by mouth in the morning. 0 3 Active Furosemide 20 MG Oral Tablet (Lasix)Indications :Bilateral leg edema,HTN, goal below 140/90 Take 1 Tablet by mouth in the morning. 90 Tablet 3 3 Active Loratadine 10 MG Oral Tablet (Claritin)Indicati ons:Urticaria Take 1 Tablet by mouth daily as needed for Rhinitis. 0 3 Active Rosuvastatin Calcium 20 MG Oral Tablet (Crestor)Indicatio ns:Hyperlipemia, mixed Take 1 Tablet by mouth in the morning. 90 Tablet 3 3 Active Nitroglycerin 0.4 MG Sublingual Tablet Sublingual (Nitrostat) Place 1 Tablet under the tongue every 5 minutes as needed for Pain, Chest. up to 3 doses in 15 minutes 25 Tablet 11 3 Active Additional Information Patient not taking.Reported on 02/09/2023 FreeStyle David 3 SensorIndications: Type 2 diabetes mellitus with hemoglobin A1c goal of less than 7.0% (HCC) Use as directed. Change every 14 days e11.9 2 Each 11 3 Active BD Pen Needle Short U/F 31G X 8 MM (Insulin Pen Needle)Indications :Type 2 diabetes mellitus with hemoglobin A1c goal of less than 7.0% (HCC) Use to inject insulin up to 4 times daily 400 Each 3 3 Active Levothyroxine Sodium 125 MCG Oral Tablet (Levoxyl)Indicatio ns:Acquired hypothyroidism Take 1 Tablet by mouth in the morning. (at least 30 min prior to breakfast or other meds). 90 Tablet 3 3 Active Metoprolol Succinate ER 25 MG Oral Tablet Extended Release 24 Hour (Toprol XL) One half tablet by mouth with you evening meal 45 Tablet 3 3 Active Timnath Carbonate 150 MG Oral Capsule (Eskalith) Take 1 Capsule by mouth in the morning. 0 3 Active rOPINIRole HCl 1 MG Oral Tablet (Requip) Take 2 Tablets by mouth at bedtime. 180 Tablet 0 3 Active Meclizine HCl 25 MG Oral Tablet (Antivert)Indicati ons:Vertigo Take 1 Tablet by mouth 3 times a day as needed for Dizziness. 90 Tablet 3 3 Active Gabapentin 300 MG Oral Capsule (Neurontin)Indicat ions:Pain in both lower extremities Take 1 capsule by mouth daily for 1 week then take 1 capsule by mouth twice daily. 60 Capsule 5 3 Active Sucralfate 1 GM Oral Tablet (Carafate)Indicati ons:Gastroesophage al reflux disease with esophagitis without hemorrhage Take 1 Tablet by mouth 4 times a day before meals and at bedtime. half an hour before meals and at bedtime 120 Tablet 5 4 Active Mounjaro 2.5 MG/0.5ML Subcutaneous Solution Pen-injector (Tirzepatide)Indic ations:Type 2 diabetes mellitus with hemoglobin A1c goal of less than 7.0% (HCC) Inject 2.5 mg under the skin once a week. 2 mL 11 4 025 Active NovoLOG FlexPen 100 UNIT/ML Subcutaneous Solution Pen-injector (insulin aspart)Indications :Type 2 diabetes mellitus with hemoglobin A1c goal of less than 7.0% (HCC) Inject 15 Units under the skin in the morning and 15 Units at noon and 15 Units in the evening. Inject with meals. 45 mL 3 4 Active Tresiba FlexTouch 100 UNIT/ML Subcutaneous Solution Pen-injector (Insulin Degludec)Indicatio ns:Type 2 diabetes mellitus with hemoglobin A1c goal of less than 7.0% (HCC) Inject 25 Units under the skin in the morning. Replaces basaglar. 30 mL 3 4 Active NovoLOG FlexPen 100 UNIT/ML Subcutaneous Solution Pen-injector (insulin aspart) Inject 8 Units under the skin in the morning and 8 Units at noon and 8 Units in the evening. Inject with meals. 0 024 Discontinued(Re fill) Tresiba FlexTouch 100 UNIT/ML Subcutaneous Solution Pen-injector (Insulin Degludec)Indicatio ns:Type 2 diabetes mellitus with hemoglobin A1c goal of less than 7.0% ([facility]) Inject 20 Units under the skin in the morning. Replaces basaglar. 15 mL 3 3 024 Discontinued(Re fill) Mounjaro 2.5 MG/0.5ML Subcutaneous Solution Pen-injector (Tirzepatide) Inject 2.5 mg under the skin once a week. 2 mL 11 4 024 Discontinued documented as of this encounter (statuses as of 03/29/2023) Active Problems Problem Noted Date Diagnosed Date Type 2 diabetes mellitus wit h diabetic peripheral angiopathy without gangrene 06/24/2022 DDD (degenerative disc disease), cervical 2022 Thoracic degenerative disc disease 06/24/2022 Irritable bowel syndrome wit h both constipation and diarrhea 06/24/2022 History of Thuan-en-Y gastric bypass 06/24/2022 Type 2 diabetes mellitus with diabetic polyneuro tiffanie 04/11/2022 Endometrial intraepithelial neoplasia (EIN) 09/11 Hiatal hernia 04/02/2021 Diabetic retinopathy of both eyes associated with type 2 diabetes mellitus 11/25/2020 Overview: 03/17/2020 Retinal Scan Interpretation: There is mild retinopathy in both eyes RLS (restless legs syndrome) 10/24/2019 Intestinal postoperative nonabsorption 0 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 Secondary hyperparathyroidism, non-renal 020 [facility]ASIO RESEARCH OTHER*[id number] 01/29/2019 Mild persistent asthma without complication 12/11 Complex atypical endometrial hyperplasia 017 Overview: Endometrial biopsy 01/01/2019: Benign inactive endometrium with progesterone effect Endometrial Biopsy 09/28/17: Benign inactive endometrium with progesterone effect Endometrial Biopsy 03/09/2017: Endometrium with progestin effect. Endometrial biopsy 12/12/2016: Endometrium with progestin effect. No evidence of atypia or carcinoma Endometrial Biopsy 09/16/2016: Complex atypical hyperplasia Lumbar degenerative disc disease 07/17/2016 Fibroid uterus 04/07/2014 Overview: Largest = 5 cm Dyslipidemia 02/26/2009 Overview: Per Lipid Taxonomy. HTN, goal below 130/80 02/03/2009 Overview: Modified per HTN protocol #16. Hypothyroidism 01/28/2005 Overview: Sees Dr. Hong (Endocrine) Gastroesophageal reflux disease with esophagitis 01/28/2005 Overview: ICD-10 update of inactive term Bipolar I disorder, most recent episode depresse d, mild 01/28/2005 Overview: Sees Dr. Dyer Type 2 diabetes mellitus wit h hemoglobin A1c goal of less than 7.0% 01/28/2005 Overview: Per Diabetes Taxonomy. ICD-10 update of inactive term Iron deficiency anemia Overview: sees Dr. Bueno - on IV iron Generalized osteoarthritis COLTEN (obstructive sleep apnea) Overview: 01/17/14 pt has set at 12cwp CPAP Plus (pt set machine to 18 cwp), F&P FFM 432 06/2008 PSG -- CPAP 10 cwp C documented as of this encounter (statuses as of 03/29/2023) Resolved Problems Problem Noted Date Diagnosed Date Resolved Date Other chest pain 11/28/2022 02/27/2023 Osteoarthritis of both acrom ioclavicular joints 06/24/2022 02/27/2023 Bipolar disorder 04/11/2022 04/28/2022 Primary osteoarthritis of left foot 08/02/2021 02/27/2023 Abdominal pain, generalized 08/02/2021 02/27/2023 BMI 40.0-44.9, adult 06/07/2020 021 Peripheral neuropathy due to metabolic disorder 01/13/2020 02/27/2023 Gastric bypass status for obesity 05/06/2019 04/28/2022 History of bariatric surgery 04/27/2019 02/27/2023 Type II diabetes mellitus wi th neurological manifestations 04/19/2019 11/25/2020 Pre-operative examination 01/29/2019 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 12/23/1902/27/2023 Mild intermittent asthma with exacerbation 07/19/2018 12/22/2018 TRIPP (dyspnea on exertion) 07/19/2018 No advance directives 09/28/20172018 Overview: Currently working on ad Chronic painful diabetic neuropathy 01/26/2017 04/28/2022 Body mass index (BMI) of 60. 0 to 69.9 in adult 12/12/2016 02/21/2019 Overview: Per Obesity protocol #1 Morbid obesity due to excess calories 11/23/2016 04/01/2019 Status post total bilateral knee replacement 7 03/22/2018 Bronchitis, complicated 08/11/2014 07/0 08/2016 Premenopause menorrhagia 05/07/201412/2018 Overview: Menses every 1-2 months x 10-30 days. Aygestin 5 mg x 5 days x [address] Fox vasectomy, CBC WNL US - fibroid EMB - excessive hormonal effect Poorly controlled type 2 diabetes mellitus 04/01/2014 04/28/2022 Jaclyn-menopause 04/01/2014 03/22/2018 Overview: Pelvic US WNL 09/23. DM type 2, not at goal 01/29/201411/25 Overview: Feb 2014 = 8.6 Acute sinusitis 05/25/2013 11/05/2013 Pain, joint, knee, left 12/13/2012 07/0 08/2016 Bunion of great toe of left foot 01/26/2012 09/15/2016 Vitamin D deficiency 11/22/2011 019 Overview: Feb 2014 = 17.9 Taking 50,000 twice weekly per Kaviani. Plans to recheck June Obesity, morbid (more than 1 00 lbs over ideal weight or BMI > 40) 11/22/2011 09/15/2016 Asthma with allergic rhinitis 06/14/2011 02/27/2023 Overview: Uses spacer-helps Acute bronchitis, complicated 05/11/2011 09/27/2011 Acute bronchitis, complicated 04/29/2010 10/14/2010 Thrush 04/29/2010 02/10/2011 Type 2 diabetes mellitus wit h hemoglobin A1c goal of 7.0%-8.0% 01/08/2009 01/29/2014 Overview: Sees Dr. Hong (Endocrine) ICD-10 update of inactive term HYPERTENSION NOS 01/28/2005 02/03/2009 Overview: Modified per HTN protocol #16. PURE HYPERCHOLESTEROLEM 01/28/200502/10 Overview: Per Lipid Taxonomy. Other mental problems 01/28/20052017 Overview: Sees Dr. Dyer Major depressive disorder 01/28/2005 Overview: Sees Dr. Dyer ICD-10 update of inactive term Female genital symptoms 02/04/200203/14 Overview: ICD-10 update of inactive term Restless legs syndrome 12/08 Osteoarthritis of knee 07/04 Overview: sees Dr. Cintron. Needs wheelchair for long distances. 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 Overview: In her 20s, on steroids x 1 year documented as of this encounter (statuses as of 03/29/2023) Immunizations Name Administration Dates Next Due Influenza, Whole Virus 12/11/2009 Pneumococcal Polysaccharide PPV23 (Pneumovax) 04/13/2017 Seasonal Influenza, PF, 6 M & above, IM , (FluLaval or Fluzone) 11/28/2022(Deferred: Patient Refused),12/02/2019,12/22/2018, 019,04/13/2017 Seasonal Influenza, Split, I IV3, No Preserve, Inj 01/11/2010 Seasonal Influenza, Split, I IV3, With Preserve, Inj 12/11/2012,12/02/2011,02/10/2011 TD, Preservative Free 09/02/2021 TDAP (age 11 and older)(Adacel) 11/18/2010 documented as of this encounter Social History Tobacco Use Types Packs/Day Years Used Date Smoking Tobacco: Never Smokeless Tobacco: Never Alcohol Use Standard Drinks/Week Comments No 0 (1 standard drink = 0.6 oz pur e alcohol) PHQ-2 Answer Date Recorded PHQ Adult Total Score 2 12/17/2022 Hunger Vital Sign Answer Date Recorded Within the past 12 months, y ou worried that your food would run out before you got the money to buy more. Never true 12/25/19 Within the past 12 months, t he food you bought just didn't last and you didn't have money to get more. Never true 12/24/2021 Sex and Gender Information Value Date Recorded Sex Assigned at Female 04/19/2019 1:07 PM EST Gender Identity Not on file Sexual Orientation Not on file Job Start Date Occupation Industry Not on file Not on file Not on file documented as of this encounter Functional Status Functional Status Response Date of Assess ment Are you deaf or do you have serious difficulty h earing? No 03/26/2021 Are you blind or do you have serious difficulty seeing, even when wearing glasses? No 03/26/2021 Do you have serious difficul ty walking or climbing stairs? (5 years old or older) No 03/26/2021 Do you have difficulty dress ing or bathing? (5 years old or older) No 03/26/2021 Because of a physical, menta l, or emotional condition, do you have difficulty doing errands alone such as visiting a doctor s office or shopping? (15 years old or older) No 01/14/20 22 Cognitive Status Response Date of Assessm ent Because of a physical, menta l, or emotional condition, do you have serious difficulty concentrating, remembering, or making decisions? (5 years old or older) No 03/26/2021 documented as of this encounter Progress Notes * [facility] - 03/29/2023 11:35 AM EST Medication Therapy Disease Management Clinic - Diabetes Management Progress Note Joyce Smith, identified by name and date of , is a 58 year old female being seen for diabetes management/education. Patient presents for return diabetic visit. DIABETES: Current diabetic medications: INC: mounjaro 7.5mg once weekly ( unable to tolerate the higher dose and held off for some time) Tresiba 25 once daily Novolog 8 units with meals Medication Injection Site: Abdomen Lifestyle: Diet: unchanged Glucose Review/SMBG: Readings obtained from patient device Hypoglycemia: Does your blood sugar go below 70 mg/dL? No Hyperglycemia symptoms present: none Recent Labs Units 01/04/23 1049 11/01/22 1240 08/31/22 1046 HEMOGLOBIN A1C - [facility] % 8.4* 7.2* 6.8* Recent Labs Units 01/04/23 1049 11/25/22 1054 11/24/22 0928 ESTIMATED GLOMERULAR FILTRATION RATE - [facility] mL/min 84 >90 >90 CREATININE - [facility] mg/dL 0.8 0.8 0.8 HYPERTENSION: Patient on ACEi/ARB: yes BP Readings from Last 3 Encounters: 03/09/23 116/64 02/09/23 122/70 01/04/23 126/68 Blood pressure at goal: yes HYPERLIPIDEMIA: Patient is taking moderate or high intensity statin: yes HEALTH MAINTENANCE REVIEW: Health Maintenance Due Topic Date Due Hepatitis B (1 of 3 - 3-dose series) Never done COVID-19 Vaccine (1) Never done Zoster Vaccines (1 of 2) Never done Pneumococcal Vaccine: Pediatrics (0 to 5 Years) and At-Risk Patients (6 to 64 Years) (2 - PCV) 04/13/2018 Diabetic Foot Exam 09/02/2022 Influenza Vaccine (FLU shot) (1) 11/11/2022 Albumin/Creatinine Ratio 12/08/2022 Cervical Cancer Screening 01/19/2023 ASSESSMENT & PLAN: ICD-10-CM 1. Type 2 diabetes mellitus with hemoglobin A1c goal of less than 7.0% ([facility]) E11.9 BG Readings - Blood sugars uncontrolled. BG averaging 235, A1c ordered for next visit. Medications - Reviewed current regimen, patient is not adherent to regimen. Patient had stopped 7.5mg of moujaro as it caused stomach pains. Patient unable to get 5mg of moujaro due to availability issues but is agreeable to go back to 2.5mg of moujaro. Discussed with patient using novolog consistently with meals, patient agreeable to start now. Diet, Exercise, Lifestyle - No significant lifestyle changes since last visit. Patient is agreeable to SMBG 4 time(s) daily. Patient aware to contact clinic if any hypoglycemia before next visit. MEDICATION CHANGES: yes, see below; preferred pharmacy: [facility] Diabetic Medications: Restart: mounjaro 2.5mg once weekly Tresiba 25 once daily INC: Novolog 15 units with meals HEALTH MAINTENANCE INTERVENTIONS: Labs: Ordered & Scheduled: HgA1c and BMP/CMP Immunizations: Due Foot Exam: Due Eye Exam: due Annual Wellness Visit: N/A FOLLOW UP: Return to clinic in 5 weeks 05/05/2023 [facility] Clinical Pharmacist - Manager [facility] Medication Therapy Management Clinic 03/29/2023, 11:35 AM documented in this encounter Plan of Treatment Upcoming Encounters Date Type Department Care Team (Late st Contact Info) Description 04/18/2023 9:00 AM EST Office Visit Cardiology, [facility] [address] [place] [place] [address] Mone Mcgovern CRNP [address] [place] [place] [address] 05/05/2023 9:30 AM EST [address] [address] [place] [facility] [address] [place], [place] [address] [address] 06/07/2023 10:00 AM EDT Office Visit Nutrition & Weight Management, [facility] [address] [place] [address] Petra Cordero PA-C [address] [place] [address] 07/03/2023 2:30 PM EDT [facility] [address] [place] [place] [address] 08/10/2023 9:40 AM EDT Office Visit [facility] [address] [place] [place] [address] Petra Block CRNP [address] [place] [address] 11/20/2023 9:00 AM EDT Office Visit [facility] [address] [place] [address] Petra Block CRNP [address] [place] [address] 02/13/2024 10:00 AM EST Office Visit [facility] [address] [place] [address] Teodoro Galaviz DO [address] [place] [address] Scheduled Orders Name Type Priority Associated Diagnoses Orde r Schedule HEMOGLOBIN A1C Lab Routine Type 2 diabetes mellitus with hemoglobin A1c goal of less than 7.0% (HCC) Expected: 03/29/2023 (Approximate), Expires: 03/29/2024 BASIC METABOLIC PANEL Lab Routine Type 2 diabetes mellitus with hemoglobin A1c goal of less than 7.0% (HCC) Expected: 03/29/2023 (Approximate), Expires: 03/29/2024 Scheduled Procedures Name Priority Associated Diagnoses Date/Ti me COLONOSCOPY FLEXIBLE PROXIMA L DIAGNOSTIC Recall Special screening for malignant neoplasms, colon Health Maintenance Due Date Last Done Comments Hepatitis B (1 of 3 - 3-dose series) 1965 COVID-19 Vaccine (#1) 1965 HPV/Co-Test 02/06/1994 Sigmoidoscopy 02/06/2009 Zoster Vaccines (1 of 2) 02/06/2014 Fecal Occult Blood Test 09/30/2016 10/01/2015 Pneumococcal Vaccine: Pediatrics (0 to 5 Years) and At-Risk Patients (6 to 64 Years) (2 - PCV) 04/13/2018 04/13/2017 Diabetic Foot Exam 09/02/2022 09/02/2021, 1 03/19/2018, 04/06/2018, Additional history exists Influenza Vaccine (FLU shot) (#1) 2022 12/02/2019, 12/22/2018, 04/06/2018, Additional history exists Albumin/Creatinine Ratio 12/08/2022 022, 06/06/2020, 03/09/2017, Additional history exists Cervical Cancer Screening 01/19/2023 Pap Smear 01/19/2023 01/20/2020, 07/12, 09/23/2013, Additional history exists Diabetic Eye Exam 06/17/2023 06/16/2022, , 06/03/2021, Additional history exists Mammogram 06/28/2023 06/27/2022, 12/05/2020, 12/25/2019, Additional history exists HbA1c 07/06/2023 01/04/2023, 10/12, 08/31/2022, Additional history exists Cologuard 10/20/2023 10/19/2020, 06/06/2017 TSH 11/23/2023 11/22/2022, 10/12, 08/31/2022, Additional history exists Depression Screening 12/18/2023 12/17/2022 GFR 01/05/2024 01/04/2023, 11/11, 11/24/2022, Additional history exists Lipid Panel 11/25/2027 11/24/2022, 08/12, 04/03/2019, Additional history exists IUD 7-Year 08/12/2028 08/12/2021 DTaP,Tdap,and Td Vaccines (3 - Td or Tdap) 09/03/2031 09/02/2021, 11/18/2010 Colonoscopy 10/06/2032 10/06/2022, 09/11, 11/10/2020, Additional history exists Colorectal Cancer Screening 10/06/2032 GARDASIL-HPV IMMUNIZATION SERIES Aged Out No longer eligible based on patient's age to complete this topic HIV Screening Discontinued MENINGOCOCCAL (MENACTRA/MENVEO) Aged Out No longer eligible based on patient's age to complete this topic documented as of this encounter Medical Devices Not on filedocumented as of this encounter Visit Diagnoses Diagnosis Type 2 diabetes mellitus with hemoglobin A1c goal of less than 7.0% (HCC)- Primary documented in this encounter Advance Directives Latest Code Status on File Code Status Date Activated Date Inactivated Comments Full Code 03/26/2021 10:58 AM 03/27/2021 6:36 PM This order reflects the patients wishes and were consensually agreed upon. Code Status History Code Status Date Activated Date Inactivated Comments Full Code 02/03/2021 6:00 AM 02/03/2021 1:45 PM Thi s order reflects the patients wishes and were consensually agreed upon. Full Code 04/11/2019 11:38 AM 04/13/2019 3:48 PM This order reflects the patients wishes and were consensually agreed upon. Full Code 09/16/2016 11:53 AM 09/16/2016 5:00 PM This o rder reflects the patients wishes and were consensually agreed upon. Full Code 09/16/2016 8:15 AM 09/16/2016 11:53 AM This o rder reflects the patients wishes and were consensually agreed upon. Care Teams Electrician Rectifier Maintenance Relationship Specialty Start Date End Date Teodoro Galaviz DO [address] [place] [address] PCP - General Family Medicine 12/19/22 documented as of this encounter
--- OUTSIDE RECORDS SUMMARY | 2023-04-01 23:30 | External Medical Summary | Summary of Care ---
Author Name Unknown Organization [facility] Address [address] [facility] [place] [address] Phone [phone] Care Team Providers Care Provider Relations Coordinator Name Role Phone Teodoro Galaviz Primary Care Provider Encounter Details Date Type Department Care Team (Late st Contact Info) Description 03/20/2023 Orders Only [address] [address] [facility] [place] [address] Allergies Active Allergy Reactions Criticality Noted Date [...] as of this encounter (statuses as of 03/20/2023) Medications Medication Sig Dispensed Refills Start Date End Date Status BD INSULIN SYRINGE ULTRAFINE 30G X 1/2" 0.3 ML MISC As directed 0 5 Active Glucose Blood (PlayerTakesAll CONTOUR NEXT TEST) STRPIndications:DM type 2, not at goal (HCC) Use to test blood sugar 6 times daily dx e11.9 540 Strip 3 9 Active CPAP every night at bedtime. 0 Active [place] Carbonate ER 450 MG Oral Tablet Extended Release (Lithobid ER) Take 1 Tablet by mouth in the morning. In the morning.. 0 3 Active traMADol HCl 50 MG Oral Tablet (Ultram)Indications :DDD (degenerative disc disease), cervical,Thoracic degenerative disc disease,Lumbar degenerative disc disease,Primary osteoarthritis of left foot Take 1 Tablet by mouth every 6 hours as needed for Pain, Severe. 30 Tablet 0 3 Active Syringe 25G X 1" 3 MLIndications:B12 deficiency Use as directed for B12 injection once monthly 50 Each 0 3 Active Triamcinolone Acetonide 0.1 % External Cream (Aristocort)Indicat ions:Intrinsic atopic dermatitis Apply topically to affected area 2 times a day. To affected area arm and leg. 60 g 5 3 Active Cyanocobalamin 1000 MCG/ML Injection Solution (Cyanocobalamin)Ind ications:B12 deficiency INJECT DIRECTED 1,000 MCG EVERY 30 DAYS . 3 mL 3 3 Active Diclofenac Sodium 1 % External Gel Apply topically to affected area. Apply to effected areas 0 Active Vitamin C Adult Gummies 125 MG Oral Tablet Chewable (Ascorbic Acid) Take by mouth. 0 Activ e Nystatin [id number] UNIT/GM External Powder (Nystop)Indications :Tinea cruris Apply topically to affected area 3 times a day. Apply to affected area skin folds 60 g 0 3 Active Pantoprazole Sodium 40 MG Oral Tablet Delayed Release (Protonix)Indicatio ns:Gastroesophageal reflux disease without esophagitis Take 1 Tablet by mouth in the morning. 90 Tablet 3 3 Active Aspirin 81 MG Oral Tablet Delayed ReleaseIndications: Chest tightness Take 1 Tablet by mouth in the morning. 0 3 Active Furosemide 20 MG Oral Tablet (Lasix)Indications: Bilateral leg edema,HTN, goal below 140/90 Take 1 Tablet by mouth in the morning. 90 Tablet 3 3 Active Loratadine 10 MG Oral Tablet (Claritin)Indicatio ns:Urticaria Take 1 Tablet by mouth daily as needed for Rhinitis. 0 3 Active Rosuvastatin Calcium 20 MG Oral Tablet (Crestor)Indication s:Hyperlipemia, mixed Take 1 Tablet by mouth in the morning. 90 Tablet 3 3 Active Nitroglycerin 0.4 MG Sublingual Tablet Sublingual (Nitrostat) Place 1 Tablet under the tongue every 5 minutes as needed for Pain, Chest. up to 3 doses in 15 minutes 25 Tablet 11 3 Active Additional Information Patient not taking.Reported on 02/09/2023 Kofiyle David 3 SensorIndications:T ype 2 diabetes mellitus with hemoglobin A1c goal of less than 7.0% (HCC) Use as directed. Change every 14 days e11.9 2 Each 11 3 Active NovoLOG FlexPen 100 UNIT/ML Subcutaneous Solution Pen-injector (insulin aspart) Inject 8 Units under the skin in the morning and 8 Units at noon and 8 Units in the evening. Inject with meals. 0 Active BD Pen Needle Short U/F 31G X 8 MM (Insulin Pen Needle)Indications: Type 2 diabetes mellitus with hemoglobin A1c goal of less than 7.0% (HCC) Use to inject insulin up to 4 times daily 400 Each 3 3 Active Levothyroxine Sodium 125 MCG Oral Tablet (Levoxyl)Indication s:Acquired hypothyroidism Take 1 Tablet by mouth in the morning. (at least 30 min prior to breakfast or other meds). 90 Tablet 3 3 Active Metoprolol Succinate ER 25 MG Oral Tablet Extended Release 24 Hour (Toprol XL) One half tablet by mouth with you evening meal 45 Tablet 3 3 Active [place] Carbonate 150 MG Oral Capsule (Eskalith) Take 1 Capsule by mouth in the morning. 0 3 Active rOPINIRole HCl 1 MG Oral Tablet (Requip) Take 2 Tablets by mouth at bedtime. 180 Tablet 0 3 Active Meclizine HCl 25 MG Oral Tablet (Antivert)Indicatio ns:Vertigo Take 1 Tablet by mouth 3 times a day as needed for Dizziness. 90 Tablet 3 3 Active Gabapentin 300 MG Oral Capsule (Neurontin)Indicati ons:Pain in both lower extremities Take 1 capsule by mouth daily for 1 week then take 1 capsule by mouth twice daily. 60 Capsule 5 3 Active Tresiba FlexTouch 100 UNIT/ML Subcutaneous Solution Pen-injector (Insulin Degludec)Indication s:Type 2 diabetes mellitus with hemoglobin A1c goal of less than 7.0% ([facility]) Inject 20 Units under the skin in the morning. Replaces basaglar. 15 mL 3 3 Active Mounjaro 2.5 MG/0.5ML Subcutaneous Solution Pen-injector (Tirzepatide) Inject 2.5 mg under the skin once a week. 2 mL 11 4 03/19/19 25 Active Mounjaro 7.5 MG/0.5ML Subcutaneous Solution Pen-injector (Tirzepatide)Indica tions:Type 2 diabetes mellitus with hemoglobin A1c goal of less than 7.0% ([facility]) Inject 7.5 mg under the skin once a week. 2 mL 11 3 03/20/19 24 Discontinued documented as of this encounter (statuses as of 03/20/2023) Active Problems Problem Noted Date Diagnosed Date [...] . Secondary hyperparathyroidism, non-renal 020 [facility] OTHER*[id number] 01/29/2019 Mild persistent asthma without complication 12/11 [...] 432 06/2008 PSG -- CPAP 10 cwp [facility] documented as of this encounter (statuses as of 03/20/2023) Resolved Problems Problem Noted Date Diagnosed Date [...] 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 12/23/19 19 02/27/2023 Mild intermittent asthma with exacerbation 07/19/2018 12/22/2018 [...] sinusitis 05/25/2013 11/05/2013 Pain, joint, knee, left 12/13/201208/2016 Bunion of great toe of left foot [...] as of this encounter (statuses as of 03/20/2023) Immunizations Name Administration Dates Next Due Influenza, [...] money to buy more. Never true 12/25/19 22 Within the past 12 months, t he [...] shopping? (15 years old or older) No 03/26/19 Cognitive Status Response Date of Assessm ent Because of a physical, menta l, or emotional condition, do you have serious difficulty concentrating, remembering, or making decisions? (5 years old or older) No 03/26/2021 documented as of this encounter Plan of Treatment Upcoming Encounters Date Type Department Care Team (Late st Contact Info) Description 04/18/2023 9:00 AM EST Office Visit Cardiology, [facility] [address] [facility] [place] [address] Mone Mcgovern CRNP [address] [facility] [place] [address] 05/05/2023 9:30 AM EST Office [facility] [place] [address] [address] [place] [address] [address] 06/07/2023 10:00 AM EDT Office Visit Nutrition & Weight Management, [facility] [address] [place] [address] Petra Cordero PA-C [address] [place] [address] 07/03/2023 2:30 PM EDT Imaging Radiology [facility] 1st Floor, [place] [address] [place] [address] 08/10/2023 9:40 AM EDT Office Visit [facility] [address] [place] [address] Petra Block CRNP [address] [place] [address] 11/20/2023 9:00 AM EDT Office Visit [facility] [address] [place] [address] Petra Block CRNP [address] [place] [address] 02/13/2024 10:00 AM EST Office Visit [facility] [address] [place] [address] Teodoro Galaviz DO [address] [place] [address] Scheduled Procedures Name Priority Associated Diagnoses Date/Ti [...] 06/03/2021, Additional history exists Mammogram 06/28/2023 06/27/2022, 05/2020, 12/25/2019, Additional history exists HbA1c 07/06/2023 01/04/2023, [...] Not on filedocumented as of this encounter Advance Directives Latest Code Status [...] and were consensually agreed upon. Care Teams Provider Relations Coordinator Relationship Specialty Start Date End Date Teodoro Galaviz DO [address] [place] [address] PCP - General Family Medicine 12/19/22 documented as of this encounter
--- OUTSIDE RECORDS SUMMARY | 2023-04-01 23:30 | External Medical Summary | Summary of Care ---
Author Name Unknown Organization [facility] Address [address] [facility] [place] [address] Phone [phone] Care Team Providers Care Boarding Kennel Or Cattery Operator Name Role Phone Teodoro Galaviz DO Primary Care Provider Reason for Referral * Evaluate & Treat - Unlimited Visits (Within 10 days (routine)) - Authorized Specialty Diagnoses / Procedures Referred By Contploa t Referred To Contact Podiatry Diagnoses Pain in both lower extremities Teodoro Galaviz DO [address] [place] [address] Referral ID Status Reason Start Date Expiration Date Visits Requested Visits Authorized [id number] Authorized Specialty Services Required 3 [phone] Question Answer Referral Priority Within 10 days (routine) Where should this appointment be scheduled? [facility] Which condition are you referring this patient for? General Foot Pain * Precert (Within 10 days (routine)) - Pending Review Specialty Diagnoses / Procedures Referred By Contpola t Referred To Contact Radiology Diagnoses Vertigo Disequilibrium Procedures MRI BRAIN WITHOUT CONTRAST Teodoro Galaviz DO [address] [place] [address] Referral ID Status Reason Start Date Expiration Date V isits Requested Visits Authorized [id number] Pending Review 03/09/2023 999 999 Reason for Visit * Reason Comments Dizziness Pt here to discuss o ngoing dizziness and Bilat foot pain. Pt's would like refill on meclizine as this helps with sx. Pt seen by PT to r/o ear crystals which pt states PT therapist gave diagnosis of Dysequilibrium on 02/24/2023. Also, had seen Dr. Torres on 02/24/2023 for bilat foot pain which per pt, Dr. Torres states may be related to low Vit D level. Encounter Details Date Type Department Care Team (Late st Contact Info) Description 03/09/2023 3:40 PM EST Office Visit [facility] [address] [place] [address] Teodoro Galaviz, [address] [place] [address] Vertigo*; Secondary hyperparathyroidism, non-renal (HCC); Type 2 diabetes mellitus with hemoglobin A1c goal of less than 7.0% ([facility]); Type 2 diabetes mellitus with diabetic polyneuropathy, without long-term current use of insulin (HCC); Type 2 diabetes mellitus with diabetic peripheral angiopathy without gangrene, without long-term current use of insulin (HCC); Mild persistent asthma without complication; HTN, goal below 130/80; Gastroesophageal reflux disease with esophagitis without hemorrhage; Disequilibrium; Elevated PTHrP level; Pain in both lower extremities; Dyslipidemia, goal LDL below 130; Vaginal yeast infection Allergies Active Allergy Reactions Criticality Noted Date [...] as of this encounter (statuses as of 03/09/2023) Medications Medication Sig Dispensed Refills Start Date End Date Status BD INSULIN SYRINGE ULTRAFINE 30G X 1/2" 0.3 ML MISC As directed 0 12/15/2014 Active Glucose Blood (TAYA CONTOUR NEXT TEST) STRPIndications:DM type 2, not at goal (HCC) Use to test blood sugar 6 times daily dx e11.9 540 Strip 3 01/29/2019 Active CPAP every night at bedtime. 0 Active Salyer Carbonate ER 450 MG Oral Tablet Extended Release (Lithobid ER) Take 1 Tablet by mouth in the morning. In the morning.. 0 03/28/2022 Active traMADol HCl 50 MG Oral Tablet (Ultram)Indications :DDD (degenerative disc disease), cervical,Thoracic degenerative disc disease,Lumbar degenerative disc disease,Primary osteoarthritis of left foot Take 1 Tablet by mouth every 6 hours as needed for Pain, Severe. 30 Tablet 0 06/24/2022 Active Syringe 25G X 1" 3 MLIndications:B12 deficiency Use as directed for B12 injection once monthly 50 Each 0 07/12/2022 Active Triamcinolone Acetonide 0.1 % External Cream (Aristocort)Indicat ions:Intrinsic atopic dermatitis Apply topically to affected area 2 times a day. To affected area arm and leg. 60 g 5 07/12/2022 Active Cyanocobalamin 1000 MCG/ML Injection Solution (Cyanocobalamin)Ind ications:B12 deficiency INJECT DIRECTED 1,000 MCG EVERY 30 DAYS . 3 mL 3 07/14/2022 Active Diclofenac Sodium 1 % External Gel Apply topically to affected area. Apply to effected areas 0 Active Vitamin C Adult Gummies 125 MG Oral Tablet Chewable (Ascorbic Acid) Take by mouth. 0 Activ e Nystatin 769258 UNIT/GM External Powder (Nystop)Indications :Tinea cruris Apply topically to affected area 3 times a day. Apply to affected area skin folds 60 g 0 10/26/2022 Active Pantoprazole Sodium 40 MG Oral Tablet Delayed Release (Protonix)Indicatio ns:Gastroesophageal reflux disease without esophagitis Take 1 Tablet by mouth in the morning. 90 Tablet 3 11/11/2022 Active Aspirin 81 MG Oral Tablet Delayed ReleaseIndications: Chest tightness Take 1 Tablet by mouth in the morning. 0 11/15/2022 Active Furosemide 20 MG Oral Tablet (Lasix)Indications: Bilateral leg edema,HTN, goal below 140/90 Take 1 Tablet by mouth in the morning. 90 Tablet 3 11/28/2022 Active Loratadine 10 MG Oral Tablet (Claritin)Indicatio ns:Urticaria Take 1 Tablet by mouth daily as needed for Rhinitis. 0 11/28/2022 Active Rosuvastatin Calcium 20 MG Oral Tablet (Crestor)Indication s:Hyperlipemia, mixed Take 1 Tablet by mouth in the morning. 90 Tablet 3 11/28/2022 Active Nitroglycerin 0.4 MG Sublingual Tablet Sublingual (Nitrostat) Place 1 Tablet under the tongue every 5 minutes as needed for Pain, Chest. up to 3 doses in 15 minutes 25 Tablet 11 11/28/2022 Active Additional Information Patient not taking.Reported on 02/09/2023 FreeModenus David 3 SensorIndications:T ype 2 diabetes mellitus with hemoglobin A1c goal of less than 7.0% (HCC) Use as directed. Change every 14 days e11.9 2 Each 11 12/01/2022 Active Tresiba FlexTouch 100 UNIT/ML Subcutaneous Solution Pen-injector (Insulin Degludec)Indication s:Type 2 diabetes mellitus with hemoglobin A1c goal of less than 7.0% (HCC) Inject 14 Units under the skin in the morning. Replaces basaglar. 15 mL 3 01/02/2023 Active NovoLOG FlexPen 100 UNIT/ML Subcutaneous Solution Pen-injector (insulin aspart) Inject 8 Units under the skin in the morning and 8 Units at noon and 8 Units in the evening. Inject with meals. 0 Active BD Pen Needle Short U/F 31G X 8 MM (Insulin Pen Needle)Indications: Type 2 diabetes mellitus with hemoglobin A1c goal of less than 7.0% ([facility]) Use to inject insulin up to 4 times daily 400 Each 3 01/03/2023 Active Levothyroxine Sodium 125 MCG Oral Tablet (Levoxyl)Indication s:Acquired hypothyroidism Take 1 Tablet by mouth in the morning. (at least 30 min prior to breakfast or other meds). 90 Tablet 3 01/10/2023 Active Metoprolol Succinate ER 25 MG Oral Tablet Extended Release 24 Hour (Toprol XL) One half tablet by mouth with you evening meal 45 Tablet 3 01/20/2023 Active Salyer Carbonate 150 MG Oral Capsule (Eskalith) Take 1 Capsule by mouth in the morning. 0 01/31/2023 Active Mounjaro 5 MG/0.5ML Subcutaneous Solution Pen-injector (Tirzepatide)Indica tions:Diabetic retinopathy of both eyes with macular edema associated with type 2 diabetes mellitus, unspecified retinopathy severity ([facility]),Type 2 diabetes mellitus with diabetic polyneuropathy, without long-term current use of insulin ([facility]) Inject 5 mg under the skin once a week. 6 mL 3 02/09/2023 4 Active rOPINIRole HCl 1 MG Oral Tablet (Requip) Take 2 Tablets by mouth at bedtime. 180 Tablet 0 02/23/2023 Active Meclizine HCl 25 MG Oral Tablet (Antivert)Indicatio ns:Vertigo Take 1 Tablet by mouth 3 times a day as needed for Dizziness. 90 Tablet 3 03/09/2023 Active Gabapentin 300 MG Oral Capsule (Neurontin)Indicati ons:Pain in both lower extremities Take 1 capsule by mouth daily for 1 week then take 1 capsule by mouth twice daily. 60 Capsule 5 03/09/2023 Active Fluconazole 150 MG Oral Tablet (Diflucan)Indicatio ns:Type 2 diabetes mellitus with hemoglobin A1c goal of less than 7.0% ([facility]),Vaginal yeast infection Take 1 Tablet by mouth once for 1 dose. 1 Tablet 5 03/09/2023 3 Active Meclizine HCl 25 MG Oral Tablet (Antivert)Indicatio ns:Vertigo Take 1 Tablet by mouth 3 times a day as needed for Dizziness. 30 Tablet 1 06/24/2022 3 Discontinu ed(Refill) Meclizine HCl 25 MG Oral Tablet (Antivert)Indicatio ns:Vertigo Take 1 Tablet by mouth 3 times a day as needed for Dizziness. 30 Tablet 1 03/09/2023 3 Discontinu ed(Refill) documented as of this encounter (statuses as of 03/09/2023) Active Problems Problem Noted Date Diagnosed Date [...] . Secondary hyperparathyroidism, non-renal 020 [facility] OTHER*[id number] 01/29/2019 Mild persistent asthma without complication 12/11 [...] 432 06/2008 PSG -- CPAP 10 cwp [facility] documented as of this encounter (statuses as of 03/09/2023) Resolved Problems Problem Noted Date Diagnosed Date [...] Jaclyn-menopause 04/01/2014 03/22/2018 Overview: Pelvic US WNL /14. DM type 2, not at goal 01/29/201411/25 Overview: Feb 2014 = 8.6 Acute sinusitis 05/25/2013 11/05/2013 Pain, joint, knee, left 12/13/2012 07/0 08/2016 Bunion of great toe of left foot 01/26/2012 09/15/2016 Vitamin D deficiency 11/22/2011 019 Overview: Feb 2014 = 17.9 Taking 50,000 twice weekly per Xavi. Plans to recheck June Obesity, morbid (more [...] as of this encounter (statuses as of 03/09/2023) Immunizations Name Administration Dates Next Due Influenza, [...] on file documented as of this encounter Last Filed Vital Signs Vital Sign Reading Time Taken Comments Blood Pressure 116/64 03/09/2023 3:42 PM EST Pulse 62 03/09/2023 3:42 PM EST Temperature 37.1 C (98.7 F) 03/09/2023 3:42 PM ES T Respiratory Rate 16 03/09/2023 3:42 PM EST Oxygen Saturation 97% 03/09/2023 3:42 PM EST Inhaled Oxygen Concentration - - Weight 91.9 kg (202 lb 8 oz) 03/09/2023 3:42 PM EST Height - - Body Mass Index 34.22 01/04/2023 9:47 AM EDT documented in this encounter Functional Status Functional Status Response [...] (15 years old or older) No 03/26/19 22 Cognitive Status Response Date of Assessm ent Because of a physical, menta l, or emotional condition, do you have serious difficulty concentrating, remembering, or making decisions? (5 years old or older) No 03/26/2021 documented as of this encounter Progress Notes * Teodoro Galaviz, DO - 03/09/2023 3:47 PM EST Images from the original note were not included. Assessment and Plan Vertigo Ongoing vertigo/imbalance Some aspect of proprioceptive dysfunction that may be related To her ongoing diabetes and hyperglycemia Will use meclizine as needed and MRI if worsening to r/o intracranial pathology - Meclizine HCl 25 MG Oral Tablet (Antivert); Take 1 Tablet by mouth 3 times a day as needed for Dizziness. - MRI BRAIN WITHOUT CONTRAST; Future Secondary hyperparathyroidism, non-renal (HCC) Type 2 diabetes mellitus with hemoglobin A1c goal of less than 7.0% ([facility]) - COMPREHENSIVE METABOLIC PANEL; Future - HEMOGLOBIN A1C; Future - ALBUMIN / CREATININE RATIO, URINE; Future - Fluconazole 150 MG Oral Tablet (Diflucan); Take 1 Tablet by mouth once for 1 dose. Type 2 diabetes mellitus with diabetic polyneuropathy, without long-term current use of insulin (HCC) Type 2 diabetes mellitus with diabetic peripheral angiopathy without gangrene, without long-term current use of insulin ([facility]) Mild persistent asthma without complication HTN, goal below 130/80 - COMPREHENSIVE METABOLIC PANEL; Future - ALBUMIN / CREATININE RATIO, URINE; Future Gastroesophageal reflux disease with esophagitis without hemorrhage Disequilibrium - MRI BRAIN WITHOUT CONTRAST; Future Elevated PTHrP level - CALCIUM, IONIZED; Future - PTH; Future - TSH WITH FREE T4 IF INDICATED; Future - 25-HYDROXY VITAMIN D; Future Pain in both lower extremities - PODIATRY REFERRAL OP - Gabapentin 300 MG Oral Capsule (Neurontin); Take 1 capsule by mouth daily for 1 week then take 1 capsule by mouth twice daily. Dyslipidemia, goal LDL below 130 - COMPREHENSIVE METABOLIC PANEL; Future - LIPID PANEL WITH DIRECT LDL IF TG IS HIGH; Future History of Present Illness [place] Smith is a 58 year old female that presents for Dizziness (Pt here to discuss ongoing dizziness and Bilat foot pain. Pt's would like refill on meclizine as this helps with sx. Pt seen by PT to r/o ear crystals which pt states PT therapist gave diagnosis of Dysequilibrium on 02/24/2023. Also, had seen Dr. Torres on 02/24/2023 for bilat foot pain which per pt, Dr. Torres states may be related to low Vit D level.) Patient with ongoing dizziness/imbalance Compliant with meds but having ongoing issues Pain in feet is bad and worsening, would like to discuss options Saw Ortho and they advised vit D supplementation She has started that, her vit D is mildly low on last labs Pharmacy has been out of [facility] [place] so she's been off the GLP-1 And feels like she may have a yeast infection Physical Exam Vitals: 03/09/23 1542 Temp: 37.1 C (98.7 F) Pulse: 62 Resp: 16 SpO2: 97% BP: 116/64 Physical Exam Constitutional: Appearance: Normal appearance. HENT: Head: Normocephalic and atraumatic. Eyes: Extraocular Movements: Extraocular movements intact. Pupils: Pupils are equal, round, and reactive to light. Cardiovascular: Rate and Rhythm: Normal rate and regular rhythm. Pulmonary: Effort: Pulmonary effort is normal. Breath sounds: Normal breath sounds. Neurological: General: No focal deficit present. Mental Status: She is alert and oriented to person, place, and time. Psychiatric: Mood and Affect: Mood normal. Behavior: Behavior normal. Wrap-Up Time: Total time today was 40 minutes excluding any time spent in the performance of separately billed services. documented in this encounter Plan of Treatment Upcoming Encounters Date Type Department Care Team (Late st Contact Info) Description 03/10/2023 8:30 AM EST [facility] [address] [place] [address] [place] [facility] [place] [address] 04/18/2023 9:00 AM EST Office Visit Cardiology, [facility] [address] [facility] [facility] [place] [address] Mone Mcgvoern CRNP [address] [place] [address] 06/07/2023 10:00 AM EDT Office Visit Nutrition & Weight Management, [facility] [address] [place] [address] Petra Cordero PA-C [address] [place] [address] 07/03/2023 2:30 PM EDT Imaging Radiology [facility] [address] [facility] [address] [place] [address] 08/10/2023 9:40 AM EDT Office Visit [facility] [address] [place] [address] Petra Block CRNP [address] [place] [address] 11/20/2023 9:00 AM EDT Office Visit [facility] [address] [place] [address] Petra Block CRNP [address] [place] [address] 02/13/2024 10:00 AM EST Office Visit [facility] [address] [place] [address] Teodoro Galaviz DO [address] [place] [address] Scheduled Orders Name Type Priority Associated Diagnoses Orde r Schedule MRI BRAIN WITHOUT CONTRAST Medical Imaging Routine Vertigo Disequilibrium Expected: 03/09/2023, Expires: 04/09/2024 CALCIUM, IONIZED Lab Routine Elevated PTHrP level Expected: 03/09/2023 (Approximate), Expires: 03/08/2024 PTH Lab Routine Elevated PTHrP level Expected: 03/09/2023 (Approximate), Expires: 03/08/2024 TSH WITH FREE T4 IF INDICATED Lab Routine Elevated PTHrP level Expected: 03/09/2023 (Approximate), Expires: 03/08/2024 25-HYDROXY VITAMIN D Lab Routine Elevated PTHrP level Expected: 03/09/2023 (Approximate), Expires: 03/08/2024 COMPREHENSIVE METABOLIC PANEL Lab Routine Type 2 diabetes mellitus with hemoglobin A1c goal of less than 7.0% (HCC) HTN, goal below 130/80 Dyslipidemia, goal LDL below 130 Expected: 03/09/2023 (Approximate), Expires: 03/09/2024 HEMOGLOBIN A1C Lab Routine Type 2 diabetes mellitus with hemoglobin A1c goal of less than 7.0% (HCC) Expected: 03/09/2023 (Approximate), Expires: 03/09/2024 ALBUMIN / CREATININE RATIO, URINE Lab Routine Type 2 diabetes mellitus with hemoglobin A1c goal of less than 7.0% (HCC) HTN, goal below 130/80 Expected: 03/09/2023 (Approximate), Expires: 03/09/2024 LIPID PANEL WITH DIRECT LDL IF TG IS HIGH Lab Routine Dyslipidemia, goal LDL below 130 Expected: 03/09/2023, Expires: 03/09/2024 Scheduled Procedures Name Priority Associated Diagnoses Date/Ti me COLONOSCOPY FLEXIBLE PROXIMA L DIAGNOSTIC Recall Special screening for malignant neoplasms, colon Scheduled Referrals Name Type Priority Associated Diagnoses Orde r Schedule PODIATRY REFERRAL OP Referral Within 10 days (routine) Pain in both lower extremities Ordered: 03/09/2023 Health Maintenance Due Date Last Done Comments [...] as of this encounter Visit Diagnoses Diagnosis Vertigo- Primary Dizziness and giddiness Secondary hyperparathyroidism, non-renal (HCC) Secondary hyperparathyroidism, non-renal Type 2 diabetes mellitus with hemoglobin A1c goal of less than 7.0% (HCC) Type 2 diabetes mellitus with diabetic polyneuropathy, without long-term current use of insulin (HCC) Type 2 diabetes mellitus with diabetic peripheral angiopathy without gangrene, without long-term current use of insulin (HCC) Mild persistent asthma without complication Unspecified asthma HTN, goal below 130/80 Unspecified essential hypertension Gastroesophageal reflux disease with esophagitis without hemorrhage Disequilibrium Dizziness and giddiness Elevated PTHrP level Unspecified disorder of parathyroid gland Pain in both lower extremities Dyslipidemia, goal LDL below 130 Other and unspecified hyperlipidemia Vaginal yeast infection Candidiasis of vulva and vagina documented in this encounter Advance Directives Latest [...] and were consensually agreed upon. Care Teams Boarding Kennel Or Cattery Operator Relationship Specialty Start Date End Date Teodoro Galaviz DO [address] [place] [address] PCP - General Family Medicine 12/19/22 documented as of this encounter
--- OUTSIDE RECORDS SUMMARY | 2023-04-01 23:30 | External Medical Summary | Summary of Care ---
Author Name Unknown Organization [facility] Address [address] [facility] [place] [address] Phone [phone] Care Team Providers Care Plc Technician Name Role Phone Saul Galavizr Savita Primary Care Provider Encounter Details Date Type Department Care Team (Late st Contact Info) Description 03/31/2023 Orders Only PATIENT PORTAL DO NOT DELETE THIS DEPT USED BY [place] [id number] Allergies Active Allergy Reactions Criticality Noted Date Comments Alprazolam 02/10/2000 Xanax Hydroxyzine Hcl Hypotension High 06/30/2010 Bee Venom High 01/17/2019 Other reaction(s): HIVES AND DIFFICULTY BREATHING Sucralfate Other (Please comment) 03/30/2023 Tingling and numbness noted around mouth, lips and tongue after taking Carafate per pt. Ciprofloxacin 04/11/2015 Palpitations Clarithromycin 02/10/2000 Delusional and [...] as of this encounter (statuses as of 03/31/2023) Medications Medication Sig Dispensed Refills Start Date End Date Status BD INSULIN SYRINGE ULTRAFINE 30G X 1/2" 0.3 ML MISC As directed 0 12/15/2014 Active Glucose Blood ([email or web address] CONTOUR NEXT TEST) STRPIndications:DM type 2, not at goal (HCC) Use to test blood sugar 6 times daily dx e11.9 540 Strip 3 01/29/2019 Active CPAP every night at bedtime. 0 Active [place] Carbonate ER 450 MG Oral Tablet Extended Release (Lithobid ER) Take 1 Tablet by mouth in the morning. In the morning.. 0 03/28/2022 Active traMADol HCl 50 MG Oral Tablet (Ultram)Indications: DDD (degenerative disc disease), cervical,Thoracic degenerative disc disease,Lumbar degenerative disc disease,Primary osteoarthritis of left foot Take 1 Tablet by mouth every 6 hours as needed for Pain, Severe. 30 Tablet 0 06/24/2022 Active Syringe 25G X 1" 3 MLIndications:B12 deficiency Use as directed for B12 injection once monthly 50 Each 0 07/12/2022 Active Triamcinolone Acetonide 0.1 % External Cream (Aristocort)Indicati ons:Intrinsic atopic dermatitis Apply topically to affected area 2 times a day. To affected area arm and leg. 60 g 5 07/12/2022 Active Cyanocobalamin 1000 MCG/ML Injection Solution (Cyanocobalamin)Jacklyn cations:B12 deficiency INJECT DIRECTED 1,000 MCG EVERY 30 DAYS . 3 mL 3 07/14/2022 Active Diclofenac Sodium 1 % External Gel Apply topically to affected area. Apply to effected areas 0 Active Vitamin C Adult Gummies 125 MG Oral Tablet Chewable (Ascorbic Acid) Take by mouth. 0 Activ e Nystatin 081747 UNIT/GM External Powder (Nystop)Indications: Tinea cruris Apply topically to affected area 3 times a day. Apply to affected area skin folds 60 g 0 10/26/2022 Active Pantoprazole Sodium 40 MG Oral Tablet Delayed Release (Protonix)Indication s:Gastroesophageal reflux disease without esophagitis Take 1 Tablet by mouth in the morning. 90 Tablet 3 11/11/2022 Active Aspirin 81 MG Oral Tablet Delayed ReleaseIndications:C hest tightness Take 1 Tablet by mouth in the morning. 0 11/15/2022 Active Furosemide 20 MG Oral Tablet (Lasix)Indications:B ilateral leg edema,HTN, goal below 140/90 Take 1 Tablet by mouth in the morning. 90 Tablet 3 11/28/2022 Active Loratadine 10 MG Oral Tablet (Claritin)Indication s:Urticaria Take 1 Tablet by mouth daily as needed for Rhinitis. 0 11/28/2022 Active Rosuvastatin Calcium 20 MG Oral Tablet (Crestor)Indications :Hyperlipemia, mixed Take 1 Tablet by mouth in the morning. 90 Tablet 3 11/28/2022 Active Nitroglycerin 0.4 MG Sublingual Tablet Sublingual (Nitrostat) Place 1 Tablet under the tongue every 5 minutes as needed for Pain, Chest. up to 3 doses in 15 minutes 25 Tablet 11 11/28/2022 Active Additional Information Patient not taking.Reported on 02/09/2023 Zenfolio David 3 SensorIndications:Ty pe 2 diabetes mellitus with hemoglobin A1c goal of less than 7.0% ([facility]) Use as directed. Change every 14 days e11.9 2 Each 11 12/01/2022 Active BD Pen Needle Short U/F 31G X 8 MM (Insulin Pen Needle)Indications:T ype 2 diabetes mellitus with hemoglobin A1c goal of less than 7.0% (HCC) Use to inject insulin up to 4 times daily 400 Each 3 01/03/2023 Active Levothyroxine Sodium 125 MCG Oral Tablet (Levoxyl)Indications :Acquired hypothyroidism Take 1 Tablet by mouth in the morning. (at least 30 min prior to breakfast or other meds). 90 Tablet 3 01/10/2023 Active Metoprolol Succinate ER 25 MG Oral Tablet Extended Release 24 Hour (Toprol XL) One half tablet by mouth with you evening meal 45 Tablet 3 01/20/2023 Active [place] Carbonate 150 MG Oral Capsule (Eskalith) Take 1 Capsule by mouth in the morning. 0 01/31/2023 Active rOPINIRole HCl 1 MG Oral Tablet (Requip) Take 2 Tablets by mouth at bedtime. 180 Tablet 0 02/23/2023 Active Meclizine HCl 25 MG Oral Tablet (Antivert)Indication s:Vertigo Take 1 Tablet by mouth 3 times a day as needed for Dizziness. 90 Tablet 3 03/09/2023 Active Gabapentin 300 MG Oral Capsule (Neurontin)Indicatio ns:Pain in both lower extremities Take 1 capsule by mouth daily for 1 week then take 1 capsule by mouth twice daily. 60 Capsule 5 03/09/2023 Active Mounjaro 2.5 MG/0.5ML Subcutaneous Solution Pen-injector (Tirzepatide)Indicat ions:Type 2 diabetes mellitus with hemoglobin A1c goal of less than 7.0% (HCC) Inject 2.5 mg under the skin once a week. 2 mL 11 03/29/2023 Active NovoLOG FlexPen 100 UNIT/ML Subcutaneous Solution Pen-injector (insulin aspart)Indications:T ype 2 diabetes mellitus with hemoglobin A1c goal of less than 7.0% (HCC) Inject 15 Units under the skin in the morning and 15 Units at noon and 15 Units in the evening. Inject with meals. 45 mL 3 03/29/2023 Active Tresiba FlexTouch 100 UNIT/ML Subcutaneous Solution Pen-injector (Insulin Degludec)Indications :Type 2 diabetes mellitus with hemoglobin A1c goal of less than 7.0% (HCC) Inject 25 Units under the skin in the morning. Replaces basaglar. 30 mL 3 03/29/2023 Active documented as of this encounter (statuses as of 03/31/2023) Active Problems Problem Noted Date Diagnosed Date Type 2 diabetes mellitus wit h diabetic peripheral angiopathy without gangrene 06/24/2022 DDD (degenerative disc disease), cervical 2022 Thoracic degenerative disc disease 06/24/2022 Irritable bowel syndrome wit h both constipation and diarrhea 06/24/2022 History of Thuan-en-Y gastric bypass 06/24/2022 Type 2 diabetes mellitus with diabetic polyneuro tiffanie 04/11/2022 Endometrial intraepithelial neoplasia (EIN) 07/2 03/2021 Hiatal hernia 04/02/2021 Diabetic retinopathy of both [...] . Secondary hyperparathyroidism, non-renal 020 [employer]AS[employer]EARCH OTHER*[id number] 01/29/2019 Mild persistent asthma without complication 12/11 [...] 432 06/2008 PSG -- CPAP 10 cwp [facility] documented as of this encounter (statuses as of 03/31/2023) Resolved Problems Problem Noted Date Diagnosed Date [...] as of this encounter (statuses as of 03/31/2023) Immunizations Name Administration Dates Next Due Influenza, [...] 04/18/2023 9:00 AM EST Office Visit Cardiology, [facility] [address] [place] [address] Mone Mcgovern CRNP [address] [place] [address] 05/05/2023 9:30 AM EST Office Visit Pharmacy, [place] [address] [facility] [place] [address] [facility] [address] [facility] [place] [address] 06/07/2023 10:00 AM EDT Office Visit Nutrition & Weight Management, [facility] [address] [place] [address] Petra Cordero PA-C [address] [place] [address] 07/03/2023 2:30 PM EDT Imaging Radiology [facility] [address] [place] [address] 08/10/2023 9:40 AM EDT Office Visit [facility] [address] [place] [address] Petra Block CRNP [address] [place] [address] 11/20/2023 9:00 AM EDT Office Visit [facility] [address] [place] [address] Petra Block CRNP [address] [place] [address] 02/13/2024 10:00 AM EST Office Visit [facility] [address] [place] [address] Teodoro Galaviz DO [address] [place] [address] Scheduled Procedures Name Priority Associated Diagnoses Date/Ti [...] and were consensually agreed upon. Care Teams Plc Technician Relationship Specialty Start Date End Date Teodoro Galaviz DO [address] [place] [address] PCP - General Family Medicine 12/19/22 documented as of this encounter
--- OUTSIDE RECORDS SUMMARY | 2023-04-01 23:30 | External Medical Summary | Summary of Care ---
Author Name Unknown Organization [facility] Address [address] [facility] [place] [address] Phone [phone] Care Team Providers Care Commercial Decorator Name Role Phone Teodoro Galaviz Primary Care Provider Encounter Details Date Type Department Care Team (Late st Contact Info) Description 03/03/2023 Population Health External Data Unspecified Department Allergies Active Allergy Reactions Criticality Noted Date [...] as of this encounter (statuses as of 03/03/2023) Medications Medication Sig Dispensed Refills Start Date End Date Status BD INSULIN SYRINGE ULTRAFINE 30G X 1/2" 0.3 ML MISC As directed 0 12/15/2014 Active Glucose Blood (TAYA CONTOUR NEXT TEST) STRPIndications:DM type 2, not at goal ([facility]) Use to test blood sugar 6 times daily dx e11.9 540 Strip 3 01/29/2019 Active CPAP every night at bedtime. 0 Active [place] Carbonate ER 450 MG Oral Tablet Extended Release (Lithobid ER) Take 1 Tablet by mouth in the morning. In the morning.. 0 03/28/2022 Active Meclizine HCl 25 MG Oral Tablet (Antivert)Indication s:Vertigo Take 1 Tablet by mouth 3 times a day as needed for Dizziness. 30 Tablet 1 06/24/2022 Active traMADol HCl 50 MG Oral Tablet [...] Take by mouth. 0 Activ e Nystatin [id number] UNIT/GM External Powder (Nystop)Indications: Tinea cruris Apply [...] Additional Information Patient not taking.Reported on 02/09/2023 FreeKontron David 3 SensorIndications:Ty pe 2 diabetes mellitus [...] evening meal 45 Tablet 3 01/20/2023 Active [place] Carbonate 150 MG Oral Capsule (Eskalith) Take 1 Capsule by mouth in the morning. 0 01/31/2023 Active Mounjaro 5 MG/0.5ML Subcutaneous Solution Pen-injector (Tirzepatide)Indicat ions:Diabetic retinopathy of both eyes with macular edema associated with type 2 diabetes mellitus, unspecified retinopathy severity (HCC),Type 2 diabetes mellitus with diabetic polyneuropathy, without long-term current use of insulin (HCC) Inject 5 mg under the skin once a week. 6 mL 3 02/09/2023 4 Active rOPINIRole HCl 1 MG Oral Tablet (Requip) Take 2 Tablets by mouth at bedtime. 180 Tablet 0 02/23/2023 Active documented as of this encounter (statuses as of 03/03/2023) Active Problems Problem Noted Date Diagnosed Date Type 2 diabetes mellitus wit h diabetic peripheral angiopathy without gangrene 06/24/2022 DDD (degenerative disc disease), cervical 2022 Thoracic degenerative disc disease 06/24/2022 Irritable bowel syndrome wit h both constipation and diarrhea 06/24/2022 History of Thuan-en-Y gastric bypass 06/24/2022 Type 2 diabetes mellitus with diabetic polyneuro tiffanie 04/11/2022 Endometrial intraepithelial neoplasia (EIN) 07/03/2021 Hiatal hernia 04/02/2021 Diabetic retinopathy of both [...] . Secondary hyperparathyroidism, non-renal 020 OCASIO RESEARCH OTHER*[id number] 01/29/2019 Mild persistent asthma without complication 12/11 [...] as of this encounter (statuses as of 03/03/2023) Resolved Problems Problem Noted Date Diagnosed Date [...] 05/25/2013 11/05/2013 Pain, joint, knee, left 12/13/2012 07/08/2016 Bunion of great toe of left foot [...] as of this encounter (statuses as of 03/03/2023) Immunizations Name Administration Dates Next Due Influenza, [...] Description 03/10/2023 8:30 AM EST Office Visit Pharmacy, [place] [address] [facility] [place] [address] [facility] [address] [facility] [place] [address] 04/18/2023 9:00 AM EST Office Visit Cardiology, [facility] [address] [address] Mone Mcgovern CRNP [address] [place] [address] 06/07/2023 10:00 AM EDT Office Visit Nutrition & Weight Management, [facility] [address] [address] Petra Cordero PA-C [address] [place] [address] 07/03/2023 2:30 PM EDT [facility] [address] [place] [address] 08/10/2023 9:40 AM EDT Office Visit Family Practice [facility] [address] [place] [address] Petra Block CRNP [address] [place] [address] 11/20/2023 9:00 AM EDT Office Visit [facility] [address] [place] [address] Petra Block CRNP [address] [place] [address] 02/13/2024 10:00 AM EST Office Visit [facility] [address] [place] [address] Teodoro Galaviz DO [address] [place] [address] Scheduled Procedures Name Priority Associated Diagnoses Date/Ti [...] 06/03/2021, Additional history exists Mammogram 06/28/2023 06/27/2022, 12/0 05/2020, 12/25/2019, Additional history exists HbA1c 07/06/2023 [...] and were consensually agreed upon. Care Teams Commercial Decorator Relationship Specialty Start Date End Date Teodoro Galaviz DO [address] [place] [address] PCP - General Family Medicine 12/19/22 documented as of this encounter
--- OUTSIDE RECORDS SUMMARY | 2023-04-01 23:30 | External Medical Summary | Summary of Care ---
Author Name Unknown Organization [facility] Address [address] [facility] [place] [address] Phone [phone] Care Team Providers Care Hog Worker Name Role Phone Teodoro Galaviz Primary Care Provider Reason for Visit * Reason Onset Date Comments Appointment 02/24/2023 Encounter Details Date Type Department Care Team (Late st Contact Info) Description 02/24/2023 Telephone Gastroenterology, [address] [address] Bindu Beltran CRNP [address] [place] [address] Appointment Allergies Active Allergy Reactions Criticality Noted Date [...] as of this encounter (statuses as of 02/24/2023) Medications Medication Sig Dispensed Refills Start Date End Date Status BD INSULIN SYRINGE ULTRAFINE 30G X 1/2" 0.3 ML MISC As directed 0 12/15/2014 Active Glucose Blood (TAYA CONTOUR NEXT TEST) STRPIndications:DM type 2, not at goal (HCC) Use to test blood sugar 6 times daily dx e11.9 540 Strip 3 01/29/2019 Active CPAP every night at bedtime. 0 Active [place] Carbonate ER 450 MG Oral Tablet Extended [...] Take by mouth. 0 Activ e Nystatin [id number] UNIT/GM External Powder (Nystop)Indications: Tinea cruris Apply [...] not taking.Reported on 02/09/2023 FreeStyle David 3 SensorIndications:Ty pe 2 diabetes mellitus [...] A1c goal of less than 7.0% ([facility]) Use to inject insulin [...] evening meal 45 Tablet 3 01/20/2023 Active [place] Carbonate 150 MG Oral Capsule (Eskalith) Take 1 Capsule by mouth in the morning. 0 01/31/2023 Active Mounjaro 5 MG/0.5ML Subcutaneous Solution Pen-injector (Tirzepatide)Indicat ions:Diabetic retinopathy of both eyes with macular edema associated with type 2 diabetes mellitus, unspecified retinopathy severity ([facility]),Type 2 diabetes mellitus with diabetic polyneuropathy, without long-term current use of insulin ([facility]) Inject 5 mg under the skin once a week. 6 mL 3 02/09/2023 4 Active rOPINIRole HCl 1 MG Oral Tablet (Requip) Take 2 Tablets by mouth at bedtime. 180 Tablet 0 02/23/2023 Active documented as of this encounter (statuses as of 02/24/2023) Active Problems Problem Noted Date Diagnosed Date Other chest pain 11/28/2022 Type 2 diabetes mellitus wit h diabetic peripheral angiopathy without gangrene 06/24/2022 Osteoarthritis of both acromioclavicular joints 06/24/2022 DDD (degenerative disc disease), cervical 2022 Thoracic degenerative disc disease 06/24/2022 Irritable bowel syndrome wit h both constipation and diarrhea 06/24/2022 History of Thuan-en-Y gastric bypass 06/24/2022 Type 2 diabetes mellitus with diabetic polyneuro tiffanie 04/11/2022 Endometrial intraepithelial neoplasia (EIN) 07/2 03/2021 Primary osteoarthritis of left foot 08/02/2021 Abdominal pain, generalized 08/02/2021 Hiatal hernia 04/02/2021 Diabetic retinopathy of both eyes associated with type 2 diabetes mellitus 11/25/2020 Overview: 03/17/2020 Retinal Scan Interpretation: There is mild retinopathy in both eyes Peripheral neuropathy due to metabolic disorder 01/13/2020 RLS (restless legs syndrome) 10/24/2019 Intestinal postoperative nonabsorption 0 History of bariatric surgery 04/27/2019 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 Secondary hyperparathyroidism, non-renal 020 OCASIO RESEARCH OTHER*[id number] 01/29/2019 Mild persistent asthma without complication 12/11 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 Complex atypical endometrial hyperplasia 017 Overview: Endometrial biopsy 01/01/2019: Benign inactive endometrium with progesterone effect Endometrial Biopsy 09/28/17: Benign inactive endometrium with progesterone effect Endometrial Biopsy 03/09/2017: Endometrium with progestin effect. Endometrial biopsy 12/12/2016: Endometrium with progestin effect. No evidence of atypia or carcinoma Endometrial Biopsy 09/16/2016: Complex atypical hyperplasia Lumbar degenerative disc disease 07/17/2016 Fibroid uterus 04/07/2014 Overview: Largest = 5 cm Asthma with allergic rhinitis 06/14/2011 Overview: Uses spacer-helps Dyslipidemia 02/26/2009 Overview: Per Lipid Taxonomy. HTN, [...] 432 06/2008 PSG -- CPAP 10 cwp [facility] documented as of this encounter (statuses as of 02/24/2023) Resolved Problems Problem Noted Date Diagnosed Date Resolved Date Bipolar disorder 04/11/2022 04/28/2022 BMI 40.0-44.9, adult 06/07/2020 021 Gastric bypass status for obesity 05/06/2019 04/28/2022 Type II diabetes mellitus wi th neurological manifestations 04/19/2019 11/25/2020 Pre-operative examination 01/29/2019 Mild intermittent asthma with exacerbation 07/19/2018 12/22/2018 [...] weight or BMI > 40) 11/22/2011 09/15/2016 Acute bronchitis, complicated 05/11/2011 09/27/2011 Acute bronchitis, [...] as of this encounter (statuses as of 02/24/2023) Immunizations Name Administration Dates Next Due Influenza, [...] No 03/26/2021 documented as of this encounter Miscellaneous Notes * Telephone Encounter - Jennifer Blanco OSA - 02/24/2023 2:53 PM EST Patient wanted to wait for closer to her coming back. She wants in summer to get this test time. * Telephone Encounter - Jennifer Blanco OSA - 02/24/2023 12:19 PM EST Order for Fibro scan . Called patient and lmm to see if patient want to be scheduled in [place] or [place] . documented in this encounter Plan of Treatment Upcoming Encounters Date Type Department Care Team (Late st Contact Info) Description 03/10/2023 8:30 AM EST Office Visit [facility] [place] [address] [facility] [address] [facility] [address] [facility] [address] 04/18/2023 9:00 AM EST Office Visit Cardiology, [address] [place] [address] Mone Mcgovern CRNP [address] [place] [address] 06/07/2023 10:00 AM EDT Office Visit Nutrition & Weight Management, [facility] [address] [place] [address] Petra Cordero PA-C [address] [place] [address] 07/03/2023 2:30 PM EDT Imaging [facility] [address] [place] [address] 08/10/2023 9:40 AM EDT Office Visit [facility] [address] [place] [address] Petra Block CRNP [address] [place] [address] 11/20/2023 9:00 AM EDT Office Visit [facility] [address] [place] [address] Petra Block CRNP [address] [place] [address] 02/13/2024 10:00 AM EST Office Visit [facility] [address] [place] [address] Teodoro Galaviz DO [address] [place] [address] Scheduled Procedures Name Priority Associated Diagnoses Date/Ti [...] and were consensually agreed upon. Care Teams Hog Worker Relationship Specialty Start Date End Date Teodoro Galaviz DO [address] [place] [address] PCP - General Family Medicine 12/19/22 documented as of this encounter
--- OUTSIDE RECORDS SUMMARY | 2023-04-01 23:30 | External Medical Summary | Summary of Care ---
Author Name Unknown Organization [facility] Address [address] [facility] [place] [address] Phone [phone] Care Team Providers Care Grain Merchandiser Name Role Phone Galaviz Teodoro Savita Primary Care Provider Encounter Details Date Type Department Care Team (Late st Contact Info) Description 12/14/2022 Telephone Cardiology, [facility] [address] [place] [address] Dianna Alcala CRNP [address] [place] [address] Allergies Active Allergy Reactions Criticality Noted Date [...] as of this encounter (statuses as of 03/15/2023) Medications Medication Sig Dispensed Refills Start Date End Date Status BD INSULIN SYRINGE ULTRAFINE 30G X 1/2" 0.3 ML MISC As directed 0 12/15/2014 Active Glucose Blood ([employer] CONTOUR NEXT TEST) STRPIndications:DM type 2, not at goal (HCC) Use to test blood sugar 6 times daily dx e11.9 540 Strip 3 01/29/2019 Active CPAP every night at bedtime. 0 Active [place] Carbonate ER 450 MG Oral Tablet Extended Release (Lithobid ER) Take 1 Tablet by mouth in the morning. In the morning.. 0 03/28/2022 Active traMADol HCl 50 MG Oral Tablet (Ultram)Indications:D DD (degenerative disc disease), cervical,Thoracic degenerative disc disease,Lumbar degenerative disc disease,Primary osteoarthritis of left foot Take 1 Tablet by mouth every 6 hours as needed for Pain, Severe. 30 Tablet 0 06/24/2022 Active Syringe 25G X 1" 3 MLIndications:B12 deficiency Use as directed for B12 injection once monthly 50 Each 0 07/12/2022 Active Triamcinolone Acetonide 0.1 % External Cream (Aristocort)Indicatio ns:Intrinsic atopic dermatitis Apply topically to affected area 2 times a day. To affected area arm and leg. 60 g 5 07/12/2022 Active Cyanocobalamin 1000 MCG/ML Injection Solution (Cyanocobalamin)Indic ations:B12 deficiency INJECT DIRECTED 1,000 MCG EVERY 30 DAYS . 3 mL 3 07/14/2022 Active Diclofenac Sodium 1 % External Gel Apply topically to affected area. Apply to effected areas 0 Active Vitamin C Adult Gummies 125 MG Oral Tablet Chewable (Ascorbic Acid) Take by mouth. 0 Activ e Nystatin 846456 UNIT/GM External Powder (Nystop)Indications:T inea cruris Apply topically to affected area 3 times a day. Apply to affected area skin folds 60 g 0 10/26/2022 Active Pantoprazole Sodium 40 MG Oral Tablet Delayed Release (Protonix)Indications :Gastroesophageal reflux disease without esophagitis Take 1 Tablet by mouth in the morning. 90 Tablet 3 11/11/2022 Active Aspirin 81 MG Oral Tablet Delayed ReleaseIndications:Ch est tightness Take 1 Tablet by mouth in the morning. 0 11/15/2022 Active Furosemide 20 MG Oral Tablet (Lasix)Indications:Bi lateral leg edema,HTN, goal below 140/90 Take 1 Tablet by mouth in the morning. 90 Tablet 3 11/28/2022 Active Loratadine 10 MG Oral Tablet (Claritin)Indications :Urticaria Take 1 Tablet by mouth daily as needed for Rhinitis. 0 11/28/2022 Active Rosuvastatin Calcium 20 MG Oral Tablet (Crestor)Indications: Hyperlipemia, mixed Take 1 Tablet by mouth in the morning. 90 Tablet 3 11/28/2022 Active Nitroglycerin 0.4 MG Sublingual Tablet Sublingual (Nitrostat) Place 1 Tablet under the tongue every 5 minutes as needed for Pain, Chest. up to 3 doses in 15 minutes 25 Tablet 11 11/28/2022 Active Additional Information Patient not taking.Reported on 02/09/2023 FND David 3 SensorIndications:Typ e 2 diabetes mellitus with hemoglobin A1c goal of less than 7.0% ([facility]) Use as directed. Change every 14 days e11.9 2 Each 12/01/2022 Active documented as of this encounter (statuses as of 03/15/2023) Active Problems Problem Noted Date Diagnosed Date [...] . Secondary hyperparathyroidism, non-renal 020 OCASIO RESEARCH OTHER*[id number] 01/29/2019 Mild persistent asthma without complication 12/11 [...] as of this encounter (statuses as of 03/15/2023) Resolved Problems Problem Noted Date Diagnosed Date [...] as of this encounter (statuses as of 03/15/2023) Immunizations Name Administration Dates Next Due Influenza, [...] encounter Miscellaneous Notes * Telephone Encounter - Radha Monaco CRNP - 12/14/2022 11:09 AM EDT Covering for BETTY Lindo No further recommendations at this time. Agree with ER. * Telephone Encounter - Nilda Yung LPN - 12/14/2022 8:21 AM EDT Patient calling stating she is experiencing palpitations and nausea body aches/bone aches. Having trouble sleeping. Insomnia. States she feels sick ever since having heart catherization done on 11/28/2022. Advised patient that if symptoms are that severe that she should seek further testing and care at the nearest ER. Patient verbalized understanding. Agreeable. documented in this encounter Plan of Treatment Upcoming Encounters Date Type Department Care Team (Late st Contact Info) Description 04/18/2023 9:00 AM EST Office Visit Cardiology, [facility] [address] [place] [address] Mone Mcgovern CRNP [address] [place] [address] 05/05/2023 9:30 AM EST Office Visit Pharmacy, [place] [address] [place] [address] [facility] [address] [facility] [place] [address] 06/07/2023 10:00 AM EDT Office Visit Nutrition & Weight Management, [facility] [address] [place] [address] Petra Cordero PA-C [address] [place] [address] 07/03/2023 2:30 PM EDT [facility] [address] [place] [address] 08/10/2023 9:40 AM EDT Office Visit [facility] [address] [place] [address] Petra Block CRNP [address] [place] [address] 11/20/2023 9:00 AM EDT Office Visit Family [facility] [address] [place] [address] Petra Block CRNP [address] [place] [address] 02/13/2024 10:00 AM EST Office Visit [facility] [address] [place] [address] Teodoro Galaviz, DO [address] [place] [address] Scheduled Procedures Name Priority Associated Diagnoses Date/Ti [...] and were consensually agreed upon. Care Teams Grain Merchandiser Relationship Specialty Start Date End Date Teodoro Galaviz DO [address] [place] [address] PCP - General Family Medicine 12/19/22 documented as of this encounter
--- OUTSIDE RECORDS SUMMARY | 2023-04-01 23:30 | External Medical Summary | Summary of Care ---
Author Name Unknown Organization [facility] Address [address] [place] [address] Phone [phone] Care Team Providers Care Train Operations Supervisor Name Role Phone Teodoro Galaviz Primary Care Provider Reason for Visit * Reason Comments Dosage Adjustment In Person (Anticoag Cl inic) Diabetes Management Encounter Details Date Type Department Care Team (Late st Contact Info) Description 03/10/2023 8:30 AM EST Office Visit Pharmacy, [place] [address] [place] [address] [facility] [address] [place] [address] Type 2 diabetes mellitus with hemoglobin A1c goal of less than 7.0% ([facility] Allergies Active Allergy Reactions Criticality Noted Date [...] as of this encounter (statuses as of 03/10/2023) Medications Medication Sig Dispensed Refills Start Date End Date Status BD INSULIN SYRINGE ULTRAFINE 30G X 1/2" 0.3 ML MISC As directed 0 5 Active Glucose Blood ([employer]YA CONTOUR NEXT TEST) STRPIndications:DM type 2, not at goal (HCC) Use to test blood sugar 6 times daily dx e11.9 540 Strip 3 9 Active CPAP every night at bedtime. 0 Active [place] Carbonate ER 450 MG Oral Tablet Extended [...] Acid) Take by mouth. 0 Active Nystatin 403655 UNIT/GM External Powder (Nystop)Indication s:Tinea cruris Apply [...] hemoglobin A1c goal of less than 7.0% ([facility]) Use as directed. Change every 14 days [...] evening meal 45 Tablet 3 3 Active Better[place] Carbonate 150 MG Oral Capsule (Eskalith) Take [...] twice daily. 60 Capsule 5 3 Active Mounjaro 7.5 MG/0.5ML Subcutaneous Solution Pen-injector (Tirzepatide)Indic ations:Type 2 diabetes mellitus with hemoglobin A1c goal of less than 7.0% (HCC) Inject 7.5 mg under the skin once a week. 2 mL 11 3 024 Active Tresiba FlexTouch 100 UNIT/ML Subcutaneous Solution Pen-injector (Insulin Degludec)Indicatio ns:Type 2 diabetes mellitus with hemoglobin A1c goal of less than 7.0% (HCC) Inject 20 Units under the skin in the morning. Replaces basaglar. 15 mL 3 3 Active Tresiba FlexTouch 100 UNIT/ML Subcutaneous Solution Pen-injector (Insulin Degludec)Indicatio ns:Type 2 diabetes mellitus with hemoglobin A1c goal of less than 7.0% (HCC) Inject 14 Units under the skin in the morning. Replaces basaglar. 15 mL 3 3 023 Discontinued(Re fill) Mounjaro 5 MG/0.5ML Subcutaneous Solution Pen-injector (Tirzepatide)Indic ations:Diabetic retinopathy of both eyes with macular edema associated with type 2 diabetes mellitus, unspecified retinopathy severity (HCC),Type 2 diabetes mellitus with diabetic polyneuropathy, without long-term current use of insulin (HCC) Inject 5 mg under the skin once a week. 6 mL 3 3 023 Discontinued documented as of this encounter (statuses as of 03/10/2023) Active Problems Problem Noted Date Diagnosed Date [...] . Secondary hyperparathyroidism, non-renal 020 OCASIO RESEARCH OTHER*[id number] 01/29/2019 Mild persistent asthma without complication 12/11 [...] as of this encounter (statuses as of 03/10/2023) Resolved Problems Problem Noted Date Diagnosed Date [...] bilateral knee replacement 7 03/22/2018 Bronchitis, complicated 08/11/20140 08/2016 Premenopause menorrhagia 05/07/201412/2018 Overview: Menses every [...] sinusitis 05/25/2013 11/05/2013 Pain, joint, knee, left 12/13/20120 08/2016 Bunion of great toe of left [...] as of this encounter (statuses as of 03/10/2023) Immunizations Name Administration Dates Next Due Influenza, [...] as of this encounter Progress Notes * Moses Bright, [facility] - 03/10/2023 8:37 AM EST Images from the original note were not included. Medication Therapy Disease Management [facility] - Diabetes Management Progress Note Joyce Smith, identified by name and date of , is a 58 year old female being seen for diabetes management/education. Patient presents for return diabetic visit. DIABETES: Current diabetic medications: START mounjaro 5mg once weekly START: Tresiba 20 once daily Novolog 8 units with meals [...] 0.8 0.8 0.8 HYPERTENSION: Patient on ACEi/ARB: no, BP controlled BP Readings from Last 3 Encounters: 03/09/23 [...] A1c goal of less than 7.0% (HCC) E11.9 Therapy Considerations: - Jardiance: yeast infection - Metformin: constipation - Ozempic: GI upset with 2 mg dose; was OK with 1 mg dose, but PCP stopped medication - used to be on insulin pump but addition of ozempic allowed patient to stop insulin pump BG Readings - Blood sugars uncontrolled. BG averaging 244, A1c ordered for next visit. Medications - Reviewed current regimen, patient is not adherent to regimen. Patient not taking novolog with meals frequently. Suggested patient try taking the novolog once daily at breakfast at leastfor now. Mounjaro 5mg has been out of stock, 7.5mg dose sent in. Diet, Exercise, Lifestyle - No significant lifestyle changes since last visit. Patient is agreeable to SMBG 4 time(s) daily. Patient aware to contact clinic if any hypoglycemia before next visit. MEDICATION CHANGES: yes, see below; preferred pharmacy: [facility] Diabetic Medications: START mounjaro 5mg once weekly Tresiba 20 once daily Novolog 8 units with meals HEALTH MAINTENANCE INTERVENTIONS: Labs: Ordered & Scheduled: HgA1c and BMP/CMP Immunizations: Due Foot Exam: Due Eye Exam: Up to Date Annual Wellness Visit: N/A FOLLOW UP: Return to clinic in 8 weeks 05/05/2023 Moses Bright [facility] Clinical Pharmacist - Bibliographic Services Specialist Medication Therapy Management Clinic 03/10/2023, 8:37 AM documented in this encounter Plan of Treatment Upcoming Encounters Date Type Department Care Team (Late st Contact Info) Description 04/18/2023 9:00 AM EST Office Visit Cardiology, [facility] [address] [place] [address] Mone Mcgovern CRNP [address] [place] [address] 05/05/2023 9:30 AM EST Office Visit Pharmacy, [address] [place] [address] [facility] [address] [place] [address] [place] [address] 06/07/2023 10:00 AM EDT Office Visit Nutrition & Weight Management, [facility] [address] [place] [address] Petra Cordero PA-C [address] [place] [address] 07/03/2023 2:30 PM EDT Imaging Radiology [facility] [facility] [address] [place] [address] 08/10/2023 9:40 AM EDT Office Visit [facility] [address] [place] [address] Petra Block CRNP [address] [place] [address] 11/20/2023 9:00 AM EDT Office Visit [facility] [address] [place] [address] Petra Block CRNP [address] [place] [address] 02/13/2024 10:00 AM EST Office Visit [facility] [address] [place] [address] Teodoro Galaviz DO [address] [place] [address] Scheduled Orders Name Type Priority Associated Diagnoses Orde r Schedule HEMOGLOBIN A1C Lab Routine Type 2 diabetes mellitus with hemoglobin A1c goal of less than 7.0% (HCC) Expected: 04/10/2023 (Approximate), Expires: 03/10/2024 BASIC METABOLIC PANEL Lab Routine Type 2 diabetes mellitus with hemoglobin A1c goal of less than 7.0% (HCC) Expected: 04/10/2023 (Approximate), Expires: 03/10/2024 Scheduled Procedures Name Priority Associated Diagnoses Date/Ti [...] 06/03/2021, Additional history exists Mammogram 06/28/2023 06/27/2022, 1205/2020, 12/25/2019, Additional history exists HbA1c 07/06/2023 01/04/2023, [...] and were consensually agreed upon. Care Teams Train Operations Supervisor Relationship Specialty Start Date End Date Teodoro Galaviz DO [address] [place] [address] PCP - General Family Medicine 12/19/22 documented as of this encounter
--- OUTSIDE RECORDS SUMMARY | 2023-04-01 23:31 | External Medical Summary | Summary of Care ---
Author Name Unknown Organization [facility] Address [address] [facility] [place] [address] Phone [phone] Care Team Providers Care 7Th Grade Social Studies Teacher Name Role Phone Teodoro Galaviz Primary Care Provider Reason for Visit * Reason Comments Outpatient Testing Encounter Details Date Type Department Care Team (Late st Contact Info) Description 01/04/2023 10:50 AM EDT Laboratory Laboratory, [facility] [address] [facility] [phone] [facility] [id number] Intestinal postoperative nonabsorption Allergies Active Allergy Reactions Criticality Noted Date [...] as of this encounter (statuses as of 01/04/2023) Medications Medication Sig Dispensed Refills Start Date End Date Status BD INSULIN SYRINGE ULTRAFINE 30G X 1/2" 0.3 ML MISC As directed 0 12/15/2014 Active Glucose Blood (TAYA CONTOUR NEXT TEST) STRPIndications:DM type 2, not at goal (HCC) Use to test blood sugar 6 times daily dx e11.9 540 Strip 3 01/29/2019 Active CPAP every night at bedtime. 0 Active [place] Carbonate ER 450 MG Oral Tablet Extended Release (Lithobid ER) Take 1 Tablet by mouth in the morning. In the morning.. 0 03/28/2022 Active Meclizine HCl 25 MG Oral Tablet (Antivert)Indications :Vertigo Take 1 Tablet by mouth 3 times [...] Take by mouth. 0 Activ e Nystatin 126895 UNIT/GM External Powder (Nystop)Indications:T inea cruris Apply topically to affected area 3 times a day. Apply to affected area skin folds 60 g 0 10/26/2022 Active Levothyroxine Sodium 125 MCG Oral Tablet (Levoxyl)Indications: Acquired hypothyroidism Take 1 Tablet by mouth in the morning. (at least 30 min prior to breakfast or other meds). 30 Tablet 11 11/03/2022 Active Pantoprazole Sodium 40 MG Oral Tablet [...] 15 minutes 25 Tablet 11 11/28/2022 Active FreeStyle David 3 SensorIndications:Typ e 2 diabetes mellitus with hemoglobin A1c goal of less than 7.0% ([facility]) Use as directed. Change every 14 days e11.9 2 Each 12/01/2022 Active rOPINIRole HCl 1 MG Oral Tablet (Requip) Take 2 Tablets by mouth at bedtime. 180 Tablet 0 12/09/2022 Active Trulicity 0.75 MG/0.5ML Subcutaneous Solution Pen-injector (Dulaglutide)Indicati ons:Diabetic retinopathy of both eyes with macular edema associated with type 2 diabetes mellitus, unspecified retinopathy severity (HCC),Type 2 diabetes mellitus with hemoglobin A1c goal of less than 7.0% (HCC),Type 2 diabetes mellitus with diabetic polyneuropathy, without long-term current use of insulin (HCC) Inject 0.75 mg under the skin once a week. 3 mL 5 12/19/2022 Active Tresiba FlexTouch 100 UNIT/ML Subcutaneous Solution Pen-injector (Insulin Degludec)Indications: Type 2 diabetes mellitus with hemoglobin A1c [...] U/F 31G X 8 MM (Insulin Pen Needle)Indications:Ty pe 2 diabetes mellitus with hemoglobin A1c goal of less than 7.0% (HCC) Use to inject insulin up to 4 times daily 400 Each 3 01/03/2023 Active Mounjaro 2.5 MG/0.5ML Subcutaneous Solution Pen-injector (Tirzepatide)Indicati ons:Type 2 diabetes mellitus with hemoglobin A1c goal of less than 7.0% (HCC) Inject 2.5 mg under the skin once a week. 2 mL 1 01/04/2023 01/04/2024 Active documented as of this encounter (statuses as of 01/04/2023) Active Problems Problem Noted Date Diagnosed Date [...] . Secondary hyperparathyroidism, non-renal 020 [facility] OTHER*[id number] 01/29/2019 Mild persistent asthma without complication 12/11 [...] 432 06/2008 PSG -- CPAP 10 cwp [facility] documented as of this encounter (statuses as of 01/04/2023) Resolved Problems Problem Noted Date Diagnosed Date [...] Major depressive disorder 01/28/2005 Overview: Sees Dr. Dyre ICD-10 update of inactive term Female genital symptoms 02/04/200203/14 Overview: ICD-10 update of inactive term Restless legs syndrome 12/08 Osteoarthritis of knee 07/04 Overview: sees Dr. Cintron. Needs wheelchair for long distances. 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 (5 years old or older No 03/26/2021 documented as of this encounter Plan of Treatment Upcoming Encounters Date Type Department Care Team (Late st Contact Info) Description 01/20/2023 10:30 AM EST Office Visit Pharmacy, [place] [address] [place] [address] [facility] [address] [place] [address] 02/08/2023 10:40 AM EST Nutrition Services Nutrition & Weight Management, [facility] [address] [place] [address] Fely Sorenson RDN [address] [place] [address] 04/18/2023 9:00 AM EST Office Visit Cardiology, [facility] [address] [place] [address] Mone Mcgovern CRNP [address] [place] [address] 05/24/2023 9:40 AM EDT Office Visit Family Practice [facility] [address] [place] [address] Teodoro Galaviz, DO [address] [place] [address] 06/07/2023 10:00 AM EDT Office Visit Nutrition & Weight Management, [facility] [address] [place] [address] Petra Cordero PA-C [address] [place] [address] 07/03/2023 2:30 PM EDT [facility] [address] [place] [address] 11/20/2023 9:00 AM EDT Office Visit Family Practice [facility] [address] [place] [address] Petra Block CRNP [address] [place] [address] Pending Results Name Type Priority Associated Diagnoses Date /Time COMPREHENSIVE METABOLIC PANEL Lab Routine Intestinal postoperative nonabsorption 01/04/2023 10:49 AM EDT FOLIC ACID Lab Routine Intestinal postoperative nonabsorption 01/04/2023 10:49 AM EDT IRON SCREEN, INCLUDING TIBC Lab Routine Intestinal postoperative nonabsorption 01/04/2023 10:49 AM EDT FERRITIN Lab Routine Intestinal postoperative nonabsorption 01/04/2023 10:49 AM EDT VITAMIN A (RETINOL) Lab Routine Intestinal postoperative nonabsorption 01/04/2023 10:49 AM EDT METHYLMALONIC ACID, SERUM Lab Routine Intestinal postoperative nonabsorption 01/04/2023 10:49 AM EDT VITAMIN B1 (THIAMINE), BLOOD, LC/MS/MS Lab Routine Intestinal postoperative nonabsorption 01/04/2023 10:49 AM EDT HEMOGLOBIN A1C Lab Routine Intestinal postoperative nonabsorption 01/04/2023 10:49 AM EDT PTH Lab Routine Intestinal postoperative nonabsorption 01/04/2023 10:49 AM EDT 25-HYDROXY VITAMIN D Lab Routine Intestinal postoperative nonabsorption 01/04/2023 10:49 AM EDT COPPER, SERUM OR PLASMA Lab Routine Intestinal postoperative nonabsorption 01/04/2023 10:49 AM EDT ZINC Lab Routine Intestinal postoperative nonabsorption 01/04/2023 10:49 AM EDT VITAMIN B12 Lab Routine Intestinal postoperative nonabsorption 01/04/2023 10:49 AM EDT Scheduled Procedures Name Priority Associated Diagnoses Date/Ti [...] 01/19/2023 01/20/2020, 07/12, 09/23/2013, Additional history exists HbA1c 05/04/2023 11/01/2022, 08/12, 12/08/2021, Additional history exists DIABETES-EYE EXAM 06/17/2023 06/16/2022, , 06/03/2021, Additional history exists Mammogram 06/28/2023 06/27/2022, 12/0 05/2020, 12/25/2019, Additional history exists Cologuard 10/20/2023 10/19/2020, 06/06/2017 TSH 11/23/2023 11/22/2022, 10/12, 08/31/2022, Additional history exists GFR 11/26/2023 11/25/2022, 11/11, 11/22/2022, Additional history exists Depression Screening 12/18/2023 12/17/2022 Lipid Panel 11/25/2027 11/24/2022, 08/12, 04/03/2019, Additional [...] Not on filedocumented as of this encounter Procedures Procedure Name Priority Date/Time Associated Diagnosis Comments DIFFERENTIAL, AUTOMATED Routine 01/04/2023 10:49 AM EDT Intestinal postoperative nonabsorption CBC Routine 01/04/2023 10:49 AM EDT Intestinal postoperative nonabsorption CBC Routine 01/04/2023 10:49 AM EDT Intestinal postoperative nonabsorption documented in this encounter Results * DIFFERENTIAL, AUTOMATED (01/04/2023 10:49 AM EDT) WBC 5.96 4.00 - 10.80 K/uL 01/04/2023 11:03 AM EDT [facility] [facility] Neutrophils % 55.7 40.0 - 75.0 % 01/04/2023 11:03 AM EDT [facility] [place] [facility] [facility] Lymphocytes % 34.6 18.0 - 42.0 % 01/04/2023 11:03 AM EDT [facility] [place] [facility] [facility] Monocytes % 6.2 1.0 - 11.0 % 01/04/2023 11:03 AM EDT [facility] [place] [facility] Eosinophils % 3.0 0.0 - 6.0 % 01/04/2023 11:03 AM EDT [facility] [place] [facility] [facility] Basophils % 0.5 0.0 - 2.0 % 01/04/2023 11:03 AM EDT [facility] [place] [facility] [facility] Absolute Neutrophils 3.32 1.80 - 7.70 K/uL 01/04/2023 11:03 AM EDT [facility] [place] [facility] Absolute Lymphocytes 2.06 1.00 - 4.80 K/ul 01/04/2023 11:03 AM EDT [facility] [place] [facility] [facility]10 Absolute Monocytes 0.37 0.00 - 1.10 K/uL 01/04/2023 11:03 AM EDT [facility]10 Absolute Eosinophils 0.18 0.00 - 0.70 K/uL 01/04/2023 11:03 AM EDT [facility] [place] [facility] Absolute Basophils 0.03 0.00 - 0.20 K/uL 01/04/2023 11:03 AM EDT [facility] Blood Venous blood specimen / Unknown Venipuncture / Unknown 01/04/2023 10:49 AM EDT 01/04/2023 10:49 AM EDT Destiny De Leon PA-C LAB BLOOD ORD ERABLES [facility] [address] [place] [address] * (ABNORMAL) CBC (01/04/2023 10:49 AM EDT) WBC 5.96 4.00 - 10.80 K/uL 01/04/2023 11:03 AM EDT [facility] RBC 4.06 3.85 - 5.15 M/uL 01/04/2023 11:03 AM EDT [facility]10 HGB 11.8(L) 12.0 - 15.3 g/dL 01/04/2023 11:03 AM EDT [facility]10 HCT 36.5 36.0 - 45.2 % 01/04/2023 11:03 AM EDT [facility] MCV 89.9 81.5 - 97.5 fL 01/04/2023 11:03 AM EDT [facility] [place] [facility] MCH 29.1 27.0 - 34.0 pg 01/04/2023 11:03 AM EDT [facility] [place] [facility]10 MCHC 32.3 32.0 - 36.0 g/dL 01/04/2023 11:03 AM EDT [facility] [place] [facility]10 RDW 12.9 11.5 - 15.5 % 01/04/2023 11:03 AM EDT [facility] [place] [facility]10 PLT 297 140 - 400 K/uL 01/04/2023 11:03 AM EDT [facility]10 MPV 9.3 6.6 - 11.1 fL 01/04/2023 11:03 AM EDT [facility] [place] [facility]10 Blood Venous blood specimen / Unknown Venipuncture / Unknown 01/04/2023 10:49 AM EDT 01/04/2023 10:49 AM EDT Destiny De Leon PA-C LAB BLOOD ORD ERABLES [facility] [place] [facility] [place] [address] documented in this encounter Visit Diagnoses Diagnosis Intestinal postoperative nonabsorption Other and unspecified postsurgical nonabsorption documented in this encounter Advance Directives Latest [...] and were consensually agreed upon. Care Teams 7Th Grade Social Studies Teacher Relationship Specialty Start Date End Date Teodoro Galaviz DO [address] [place] [address] PCP - General Family Medicine 12/19/22 documented as of this encounter
--- OUTSIDE RECORDS SUMMARY | 2023-04-01 23:31 | External Medical Summary | Summary of Care ---
Author Name Unknown Organization [facility] Address [address] [facility] [place] [address] Phone [phone] Care Team Providers Care Angiography Technologist Name Role Phone Alanis Galaviz Primary Care Provider Reason for Visit * Reason Onset Date Comments Medication Refill 01/10/2023 Encounter Details Date Type Department Care Team (Late st Contact Info) Description 01/10/2023 Refill Family Practice [facility] [address] [place] [address] Nam Squires DO [address] [place] [address] Acquired hypothyroidism Allergies Active Allergy Reactions Criticality Noted Date [...] as of this encounter (statuses as of 01/10/2023) Medications Medication Sig Dispensed Refills Start Date End Date Status BD INSULIN SYRINGE ULTRAFINE 30G X 1/2" 0.3 ML MISC As directed 0 12/15/2014 Active Glucose Blood (TAYA CONTOUR NEXT TEST) STRPIndications:DM type 2, not at goal (HCC) Use to test blood sugar 6 times daily dx e11.9 540 Strip 3 01/29/2019 Active CPAP every night at bedtime. 0 Active [place] Carbonate ER 450 MG Oral Tablet Extended [...] Take by mouth. 0 Activ e Nystatin 456130 UNIT/GM External Powder (Nystop)Indications: Tinea cruris Apply [...] Tablet 11 11/28/2022 Active FreeStyle David 3 SensorIndications:Ty pe 2 diabetes mellitus with hemoglobin A1c goal of less than 7.0% ([facility]) Use as directed. Change every 14 days e11.9 2 Each 11 12/01/2022 Active rOPINIRole HCl 1 MG Oral Tablet (Requip) Take 2 Tablets by mouth at bedtime. 180 Tablet 0 12/09/2022 Active Trulicity 0.75 MG/0.5ML Subcutaneous Solution Pen-injector (Dulaglutide)Indicat ions:Diabetic retinopathy of both eyes with macular edema associated with type 2 diabetes mellitus, unspecified retinopathy severity ([facility]),Type 2 diabetes mellitus with hemoglobin A1c goal of less than 7.0% ([facility]),Type 2 diabetes mellitus with diabetic [...] once a week. 2 mL 1 01/04/2023 4 Active Levothyroxine Sodium 125 MCG Oral Tablet (Levoxyl)Indications :Acquired hypothyroidism Take 1 Tablet by mouth in the morning. (at least 30 min prior to breakfast or other meds). 90 Tablet 3 01/10/2023 Active Levothyroxine Sodium 125 MCG Oral Tablet (Levoxyl)Indications :Acquired hypothyroidism Take 1 Tablet by mouth in the morning. (at least 30 min prior to breakfast or other meds). 30 Tablet 11 11/03/2022 3 Discontinue d(Refill) documented as of this encounter (statuses as of 01/10/2023) Active Problems Problem Noted Date Diagnosed Date [...] tiffanie 04/11/2022 Endometrial intraepithelial neoplasia (EIN) 09/11 Primary osteoarthritis of left foot 08/02/2021 Abdominal [...] . Secondary hyperparathyroidism, non-renal 020 [employer]ARCH OTHER*[id number] 01/29/2019 Mild persistent asthma without complication 12/11 [...] 432 06/2008 PSG -- CPAP 10 cwp [facility] documented as of this encounter (statuses as of 01/10/2023) Resolved Problems Problem Noted Date Diagnosed Date [...] as of this encounter (statuses as of 01/10/2023) Immunizations Name Administration Dates Next Due Influenza, [...] encounter Miscellaneous Notes * Telephone Encounter - Alanis Galaviz DO - 01/10/2023 4:25 PM EDT Signed Prescriptions: Disp Refills Levothyroxine Sodium 125 MCG Oral Tablet (*90 Tab*3 Sig: Take 1 Tablet by mouth in the morning. (at least 30 min prior to breakfast or other meds). Authorizing Provider: ALANIS GALAVIZ * Telephone Encounter - Bibi Brewer LPN - 01/10/2023 3:23 PM EDTPending Prescriptions: Disp Refills Levothyroxine Sodium 125 MCG Oral Tablet (*90 Tab*3 Sig: Take 1 Tablet by mouth in the morning. (at least 30 min prior to breakfast or other meds). * Telephone Encounter - Marlyn Benoitlele Mead - 01/10/2023 2:59 PM EDT Did you pend patient's preferred pharmacy and medication before forwarding?yes Pharmacy: [id number] [address] [facility] Pending Prescriptions: Disp Refills Levothyroxine Sodium 125 MCG Oral Tablet *30 Tab*11 Sig: Take 1 Tablet by mouth in the morning. (at least 30 min prior to breakfast or other meds). Last Visit: 12/19/2022 (in office), Visit date not found (telemedicine) Next Visit: 05/24/2023 If no future appointments scheduled, and last appointment is greater than a year ago, please schedule patient for a follow-up appointment Last date the medication was ordered: 11.03.22 Is this request for a controlled substance?No 90 day refill request Urine Drug Screen:No results found. However, due to the size of the patient record, not all encounters were searched. Please check Results Review for a complete set of results. Patient Phone Numbers Labs: Lab Results Component Value Date/Time CREAT 0.8 01/04/2023 10:49 AM CREAT 1.0 03/17/2020 08:54 AM POTASSIUM 4.1 01/04/2023 10:49 AM POTASSIUM 4.3 03/17/2020 08:54 AM TSH 0.46 11/22/2022 04:58 PM TSH 0.17 (L) 03/17/2020 08:54 AM LDLCALC 72 11/24/2022 09:27 AM LDLCALC 145 (H) 09/03/2019 10:48 AM LDLDIRECT 71 04/03/2019 12:57 PM LDLDIRECT 92 06/17/2014 02:26 PM ALT 37 (H) 01/04/2023 10:49 AM ALT 18 03/17/2020 08:54 AM HGBA1C 8.4 (H) 01/04/2023 10:49 AM HGBA1C 7.6 (H) 03/17/2020 08:54 AM HGBA1C 6.5 (H) 01/16/1996 10:00 AM documented in this encounter Plan of Treatment Upcoming Encounters Date Type Department Care Team (Late st Contact Info) Description 01/20/2023 10:30 AM EST Office Visit Pharmacy, [place] [address] [facility] [place] [address] [facility] [address] [facility] [place] [address] 02/08/2023 10:40 AM EST Nutrition Services Nutrition & Weight Management, [facility] [address] [place] [address] Fely Sorenson RDN [address] [place] [address] 04/18/2023 9:00 AM EST Office Visit Cardiology, [facility] [address] [place] [address] Mone Mcgovern CRNP [address] [place] [address] 05/24/2023 9:40 AM EDT Office Visit Family Practice [facility] [address] [place] [address] Alanis Galaviz DO [address] [place] [address] 06/07/2023 10:00 AM EDT Office Visit Nutrition & Weight Management, [facility] [address] [place] [address] Petra Cordero PA-C [address] [place] [address] 07/03/2023 2:30 PM EDT Imaging Radiology [address] [place] [address] 11/20/2023 9:00 AM EDT Office Visit Family Practice [facility] [address] [place] [address] Petra Block CRNP [address] [place] [address] Scheduled Procedures Name Priority Associated Diagnoses Date/Ti [...] as of this encounter Visit Diagnoses Diagnosis Acquired hypothyroidism Unspecified hypothyroidism documented in this encounter Advance Directives Latest [...] and were consensually agreed upon. Care Teams Angiography Technologist Relationship Specialty Start Date End Date Alanis Galaviz DO [address] [place] [address] PCP - General Family Medicine 12/19/22 documented as of this encounter
--- OUTSIDE RECORDS SUMMARY | 2023-04-01 23:31 | External Medical Summary | Summary of Care ---
Author Name Unknown Organization [facility] Address [address] [facility] [place] [address] Phone [phone] Care Team Providers Care Forest Fire Officer Name Role Phone Teodoro Galaviz DO Primary Care Provider Reason for Referral * Evaluate & Treat - Unlimited Visits (Within 10 days (routine)) - Authorized Specialty Diagnoses / Procedures Referred By Gustavo t Referred To Contact Orthopaedic Surgery / Orthopedics Diagnoses Pain of left lower extremity Teodoro Galaviz DO [address] [place] [address] Lloyd Torres MD [address] [facility] [address] [place] [address] Referral ID Status Reason Start Date Expiration Date Visits Requested Visits Authorized [id number] Authorized Specialty Services Required [phone] Question Answer Referral Priority Within 10 days (routine) [facility] should this appointment be scheduled? [facility] What body part is the patient being seen for? Foot/Ankle/Calf What condition is the patient being seen for? Arthritis including related infection * Evaluate & Treat - Unlimited Visits (Within 10 days (routine)) - Authorized Specialty Diagnoses / Procedures Referred By Contac t Referred To Contact Audiology Diagnoses Dizziness Teodoro Galaviz DO [address] [place] [address] Referral ID Status Reason Start Date Expiration Date Visits Requested Visits Authorized [id number] Authorized Specialty Services Required [phone] Question Answer Referral Priority Within 10 days (routine) Where should this appointment be scheduled? [facility] Is this order intended for the [facility] in [place], [place] Yes Along with the dizziness, has there been a sudden change in hearing or tinnitus within the last two weeks? No Is the dizziness triggered with rolling over in bed and lasting seconds? No Is the dizziness motion-related, spontaneous (non-predictable) or both? Both Comments Referral to: Otolaryngology Vestibular and [facility] For services that may include: 1. Audiologic and vestibular testing 2. Otolaryngology consultation 3. Vestibular Rehabilitation [Physical Therapy] evaluation and treatment Reason for Visit * Reason Comments NEW PATIENT Pt here for return/n ew pt. Encounter Details Date Type Department Care Team (Late st Contact Info) Description 02/09/2023 10:20 AM EST Office Visit Family [facility] [address] [place] [address] Teodoro Galaviz DO [address] [place] [address] Diabetic retinopathy of both eyes with macular edema associated with type 2 diabetes mellitus, unspecified retinopathy severity (HCC)*; Dizziness; Secondary hyperparathyroidism, non-renal (HCC); Other specified hypothyroidism; Type 2 diabetes mellitus with diabetic polyneuropathy, without long-term current use of insulin (HCC); Type 2 diabetes mellitus with diabetic peripheral angiopathy without gangrene, without long-term current use of insulin ([facility]); Mild intermittent asthma with allergic rhinitis without complication; COLTEN (obstructive sleep apnea); Gastroesophageal reflux disease with esophagitis without hemorrhage; Pain of left lower extremity; Dyslipidemia Allergies Active Allergy Reactions Criticality Noted Date [...] as of this encounter (statuses as of 02/09/2023) Medications Medication Sig Dispensed Refills Start Date End Date Status BD INSULIN SYRINGE ULTRAFINE 30G X 1/2" 0.3 ML MISC As directed 0 5 Active Glucose Blood (TAYA CONTOUR NEXT TEST) STRPIndications:DM type 2, not at goal (HCC) Use to test blood sugar 6 times daily dx e11.9 540 Strip 3 9 Active CPAP every night at bedtime. 0 Active Balaton Carbonate ER 450 MG Oral Tablet Extended Release (Lithobid ER) Take 1 Tablet by mouth in the morning. In the morning.. 0 3 Active Meclizine HCl 25 MG Oral Tablet (Antivert)Indicati ons:Vertigo Take 1 Tablet by mouth 3 times a day as needed for Dizziness. 30 Tablet 1 3 Active traMADol HCl 50 MG Oral Tablet (Ultram)Indication s:DDD (degenerative disc disease), cervical,Thoracic degenerative disc disease,Lumbar degenerative disc disease,Primary osteoarthritis of left foot Take 1 Tablet by mouth every 6 hours as needed for Pain, Severe. 30 Tablet 0 04/14/202 3 Active Syringe 25G X 1" 3 [...] Acid) Take by mouth. 0 Active Nystatin 259741 UNIT/GM External Powder (Nystop)Indication s:Tinea cruris Apply [...] Additional Information Patient not taking.Reported on 02/09/2023 Maico Hernandez 3 SensorIndications: Type 2 diabetes mellitus with hemoglobin A1c goal of less than 7.0% ([facility]) Use as directed. Change every 14 days e11.9 2 Each 11 3 Active rOPINIRole HCl 1 MG Oral Tablet (Requip) Take 2 Tablets by mouth at bedtime. 180 Tablet 0 3 Active Tresiba FlexTouch 100 UNIT/ML Subcutaneous Solution Pen-injector (Insulin Degludec)Indicatio ns:Type 2 diabetes mellitus with hemoglobin A1c goal of less than 7.0% ([facility]) Inject 14 Units under the skin in the morning. Replaces basaglar. 15 mL 3 3 Active NovoLOG FlexPen 100 UNIT/ML Subcutaneous [...] ([facility]) Use to inject insulin up to 4 [...] evening meal 45 Tablet 3 3 Active Balaton Carbonate 150 MG Oral Capsule (Eskalith) Take 1 Capsule by mouth in the morning. 0 3 Active Mounjaro 5 MG/0.5ML Subcutaneous Solution Pen-injector (Tirzepatide)Indic ations:Diabetic retinopathy of both eyes with macular edema associated with type 2 diabetes mellitus, unspecified retinopathy severity (HCC),Type 2 diabetes mellitus with diabetic polyneuropathy, without long-term current use of insulin ([facility]) Inject 5 mg under the skin once a week. 6 mL 3 3 024 Active Trulicity 0.75 MG/0.5ML Subcutaneous Solution Pen-injector (Dulaglutide)Indic ations:Diabetic retinopathy of both eyes with macular edema associated with type 2 diabetes mellitus, unspecified retinopathy severity (HCC),Type 2 diabetes mellitus with hemoglobin A1c goal of less than 7.0% (HCC),Type 2 diabetes mellitus with diabetic polyneuropathy, without long-term current use of insulin (HCC) Inject 0.75 mg under the skin once a week. 3 mL 5 3 023 Discontinued(Sc dication List Clean Up) Mounjaro 2.5 MG/0.5ML Subcutaneous Solution Pen-injector (Tirzepatide)Indic ations:Type 2 diabetes mellitus with hemoglobin A1c goal of less than 7.0% ([facility]) Inject 2.5 mg under the skin once a week. 2 mL 1 3 023 Discontinued documented as of this encounter (statuses as of 02/09/2023) Active Problems Problem Noted Date Diagnosed Date [...] . Secondary hyperparathyroidism, non-renal 020 OCASIO RESEARCH OTHER*[id number] 01/29/2019 Mild persistent asthma without complication 12/11 [...] as of this encounter (statuses as of 02/09/2023) Resolved Problems Problem Noted Date Diagnosed Date [...] as of this encounter (statuses as of 02/09/2023) Immunizations Name Administration Dates Next Due Influenza, [...] Sign Reading Time Taken Comments Blood Pressure 122/70 02/09/2023 10:17 AM EST Pulse 62 02/09/2023 10:17 AM EST Temperature 35.8 C (96.5 F) 02/09/2023 10:[address] Respiratory Rate 16 02/09/2023 10:17 AM EST Oxygen Saturation 99% 02/09/2023 10:17 AM EST Inhaled Oxygen Concentration - - Weight 90.5 kg (199 lb 9 oz) 02/09/2023 10:17 AM EST Height - - Body Mass Index 33.73 01/04/2023 9:47 AM EDT documented in this [...] Progress Notes * Teodoro Galaviz, DO - 02/09/2023 10:20 AM EST Images from the original note were not included. Assessment and Plan Diabetic retinopathy of both eyes with macular edema associated with type 2 diabetes mellitus, unspecified retinopathy severity (HCC) Advise titration up in dose to 5mg weekly - Mounjaro 5 MG/0.5ML Subcutaneous Solution Pen-injector (Tirzepatide); Inject 5 mg under the skin once a week. Dizziness Ok for eval at balance center Suspect she may be experiencing some diabetic autonomic Dysfunction/impairment from her hx of DMII which may be causing these symptoms - [facility] REFERRAL OP Secondary hyperparathyroidism, non-renal (HCC) Other specified hypothyroidism - TSH WITH FREE T4 IF INDICATED; Future Type 2 diabetes mellitus with diabetic polyneuropathy, without long-term current use of insulin (HCC) - Mounjaro 5 MG/0.5ML Subcutaneous Solution Pen-injector (Tirzepatide); Inject 5 mg under the skin once a week. - CBC WITH WBC DIFFERENTIAL; Future - COMPREHENSIVE METABOLIC PANEL; Future - HEMOGLOBIN A1C; Future - ALBUMIN / CREATININE RATIO, URINE; Future Type 2 diabetes mellitus with diabetic peripheral angiopathy without gangrene, without long-term current use of insulin (HCC) Mild intermittent asthma with allergic rhinitis without complication COLTEN (obstructive sleep apnea) Gastroesophageal reflux disease with esophagitis without hemorrhage Pain of left lower extremity Would advise evaluation with Dr Torres ankle/foot ortho At [facility] - ORTHOPAEDICS REFERRAL OP Dyslipidemia - COMPREHENSIVE METABOLIC PANEL; Future - LIPID PANEL WITH DIRECT LDL IF TG IS HIGH; Future History of Present Illness Joyce Smith is a 58 year old female that presents for NEW PATIENT (Pt here for return/new pt.) Presents in f/u today Overall doing ok and labs are back for review Has been having ongoing foot pain on 5th metatarsal L foot Also having intermittent dizziness still which Has not improved with toprol No change in palpitations either Physical Exam Vitals: 02/09/23 1017 Temp: 35.8 C (96.5 F) Pulse: 62 Resp: 16 SpO2: 99% BP: 122/70 Physical Exam Vitals and nursing note reviewed. Constitutional: Appearance: Normal appearance. HENT: Head: Normocephalic and atraumatic. Right Ear: Tympanic membrane, ear canal and external ear normal. There is no impacted cerumen. Left Ear: Tympanic membrane, ear canal and external ear normal. There is no impacted cerumen. Nose: Nose normal. Mouth/Throat: Mouth: Mucous membranes are moist. Pharynx: Oropharynx is clear. Eyes: Extraocular Movements: Extraocular movements intact. Conjunctiva/sclera: Conjunctivae normal. Pupils: Pupils are equal, round, and reactive to light. Cardiovascular: Rate and Rhythm: Normal rate and regular rhythm. Heart sounds: Normal heart sounds. Pulmonary: Effort: Pulmonary effort is normal. Breath sounds: Normal breath sounds. Abdominal: General: Abdomen is flat. Palpations: Abdomen is soft. Musculoskeletal: General: Normal range of motion. Cervical back: Normal range of motion and neck supple. Lymphadenopathy: Cervical: No cervical adenopathy. Skin: General: Skin is warm and dry. Neurological: General: No focal deficit present. Mental Status: She is alert and oriented to person, place, and time. Wrap-Up Follow-up: Return in about 6 months (around 08/10/2023). | Check-out note: Every 6 months visits please Every other with [facility]iede if needed Time: Total time today was 29 minutes excluding any time spent in the performance of separately billed services. documented in this encounter Plan of Treatment Upcoming Encounters Date Type Department Care Team (Late st Contact Info) Description 02/13/2023 8:30 AM EST Office Visit [address] [place] [address] [facility] [address] [facility] [place] [address] 04/18/2023 9:00 AM EST Office Visit Cardiology, [facility] [address] [place] [address] Mone Mcgovern CRNP [address] [place] [address] 06/07/2023 10:00 AM EDT Office Visit Nutrition & Weight Management, [facility] [address] [place] [address] Petra Cordero PA-C [address] [place] [address] 07/03/2023 2:30 PM EDT [facility] [address] [place] [address] 08/10/2023 9:40 AM EDT Office Visit Family Practice [facility] [address] [place] [address] Petra Block CRNP [address] [place] [address] 11/20/2023 9:00 AM EDT Office Visit Family Practice [facility] [address] [place] [address] Petra Block CRNP [address] [place] [address] 02/13/2024 10:00 AM EST Office Visit Family Practice [facility] [address] [place] [address] Teodoro Galaviz DO [address] [place] [address] Scheduled Orders Name Type Priority Associated Diagnoses Orde r Schedule CBC WITH WBC DIFFERENTIAL Lab Routine Type 2 diabetes mellitus with diabetic polyneuropathy, without long-term current use of insulin (HCC) Expected: 08/08/2023 (Approximate), Expires: 02/10/2024 COMPREHENSIVE METABOLIC PANEL Lab Routine Type 2 diabetes mellitus with diabetic polyneuropathy, without long-term current use of insulin (HCC) Dyslipidemia Expected: 08/08/2023 (Approximate), Expires: 02/10/2024 HEMOGLOBIN A1C Lab Routine Type 2 diabetes mellitus with diabetic polyneuropathy, without long-term current use of insulin (HCC) Expected: 08/08/2023 (Approximate), Expires: 02/10/2024 ALBUMIN / CREATININE RATIO, URINE Lab Routine Type 2 diabetes mellitus with diabetic polyneuropathy, without long-term current use of insulin (HCC) Expected: 08/08/2023 (Approximate), Expires: 02/10/2024 LIPID PANEL WITH DIRECT LDL IF TG IS HIGH Lab Routine Dyslipidemia Expected: 08/08/2023 (Approximate), Expires: 02/10/2024 TSH WITH FREE T4 IF INDICATED Lab Routine Other specified hypothyroidism Expected: 08/08/2023 (Approximate), Expires: 02/09/2024 Scheduled Procedures Name Priority Associated Diagnoses Date/Ti me COLONOSCOPY FLEXIBLE PROXIMA L DIAGNOSTIC Recall Special screening for malignant neoplasms, colon Scheduled Referrals Name Type Priority Associated Diagnoses Order Schedule [facility] REFERRAL OP Referral Within 10 days (routine) Dizziness Ordered: 02/09/2023 ORTHOPAEDICS REFERRAL OP Referral Within 10 days (routine) Pain of left lower extremity Ordered: 02/09/2023 Health Maintenance Due Date Last Done Comments [...] as of this encounter Visit Diagnoses Diagnosis Diabetic retinopathy of both eyes with macular edema associated with type 2 diabetes mellitus, unspecified retinopathy severity (HCC)- Primary Dizziness Dizziness and giddiness Secondary hyperparathyroidism, non-renal (HCC) Secondary hyperparathyroidism, non-renal Other specified hypothyroidism Type 2 diabetes mellitus with diabetic polyneuropathy, without long-term current use of insulin (HCC) Type 2 diabetes mellitus with diabetic peripheral angiopathy without gangrene, without long-term current use of insulin (HCC) Mild intermittent asthma with allergic rhinitis without complication COLTEN (obstructive sleep apnea) Obstructive sleep apnea (adult) (pediatric) Gastroesophageal reflux disease with esophagitis without hemorrhage Pain of left lower extremity Dyslipidemia Other and unspecified hyperlipidemia documented in this encounter Advance Directives Latest [...] and were consensually agreed upon. Care Teams Forest Fire Officer Relationship Specialty Start Date End Date Teodoro Galaviz DO [address] [place] [address] PCP - General Family Medicine 12/19/22 documented as of this encounter
--- OUTSIDE RECORDS SUMMARY | 2023-04-01 23:31 | External Medical Summary | Summary of Care ---
Author Name Unknown Organization [facility] Address [address] [facility] [place] [address] Phone [phone] Care Team Providers Care Earth Science Laboratory Technician Name Role Phone Teodoro Galaviz DO Primary Care Provider Reason for Visit * Reason Onset Date Comments Advice 02/13/2023 Encounter Details Date Type Department Care Team (Late st Contact Info) Description 02/13/2023 Telephone Family Practice [facility] [address] [place] [address] Teodoro Galaviz DO [address] [place] [address] Advice Allergies Active Allergy Reactions Criticality Noted Date [...] as of this encounter (statuses as of 02/14/2023) Medications Medication Sig Dispensed Refills Start Date End Date Status BD INSULIN SYRINGE ULTRAFINE 30G X 1/2" 0.3 ML MISC As directed 0 12/15/2014 Active Glucose Blood (TAYA CONTOUR NEXT TEST) STRPIndications:DM type 2, not at goal (HCC) Use to test blood sugar 6 times daily dx e11.9 540 Strip 3 01/29/2019 Active CPAP every night at bedtime. [address] [place] Carbonate ER 450 MG Oral Tablet Extended [...] Take by mouth. 0 Activ e Nystatin [id number] UNIT/GM External Powder (Nystop)Indications: Tinea cruris Apply [...] Additional Information Patient not taking.Reported on 02/09/2023 [employer] David 3 SensorIndications:Ty pe 2 diabetes mellitus with hemoglobin A1c goal of less than 7.0% (HCC) Use as directed. Change every 14 days e11.9 2 Each 11 12/01/2022 Active rOPINIRole HCl 1 MG Oral Tablet (Requip) Take 2 Tablets by mouth at bedtime. 180 Tablet 0 12/09/2022 Active Tresiba FlexTouch 100 UNIT/ML Subcutaneous Solution [...] evening meal 45 Tablet 3 01/20/[address] [place] Carbonate 150 MG Oral Capsule (Eskalith) Take 1 Capsule by mouth in the morning. 0 01/31/2023 Active Mounjaro 5 MG/0.5ML Subcutaneous Solution Pen-injector (Tirzepatide)Indicat ions:Diabetic retinopathy of both eyes with macular edema associated with type 2 diabetes mellitus, unspecified retinopathy severity ([facility]),Type 2 diabetes mellitus with diabetic polyneuropathy, without long-term current use of insulin ([facility]) Inject 5 mg under the skin once a week. 6 mL 3 02/09/2023 4 Active documented as of this encounter (statuses as of 02/14/2023) Active Problems Problem Noted Date Diagnosed Date [...] . Secondary hyperparathyroidism, non-renal 020 OCASIO RESEARCH OTHER*[id number] 01/29/2019 Mild persistent asthma without complication 12/11 [...] 432 06/2008 PSG -- CPAP 10 cwp [facility] documented as of this encounter (statuses as of 02/14/2023) Resolved Problems Problem Noted Date Diagnosed Date [...] 05/25/2013 11/05/2013 Pain, joint, knee, left 12/13/2012 0708/2016 Bunion of great toe of left foot [...] as of this encounter (statuses as of 02/14/2023) Immunizations Name Administration Dates Next Due Influenza, [...] encounter Miscellaneous Notes * Telephone Encounter - Siria Galaviz OSA - 02/14/2023 8:43 AM EST Per below already scheduled. Referral faxed * Telephone Encounter - Marie Ruiz LPN - 02/14/2023 8:32 AM EST Referral is placed. Please assist with scheduling. * Telephone Encounter - Светлана Monaco OSA - 02/13/2023 4:39 PM EST Has the patient been seen for this problem? (Y/N)?: yes If No, an appt needs to be scheduled before a referral will be placed (exception: proceed with referral request if referral request is for a yearly routine appointment with speciality) Patient Name: Joyce Smith Patient Primary care provider: Teodoro Galaviz, DO Does this need to be an insurance referral (Y/N)?: yes If Yes, does the insurance referral need to be placed into the [employer] system?yes Name of preferred specialist: Dr Torres Type of specialist: orthopedic Location of specialist: [facility] Phone #: [phone] [facility] Fax #: [phone] Reason for visit: left foot consult Date of visit: 02/24/23 documented in this encounter Plan of Treatment Upcoming Encounters Date Type Department Care Team (Late st Contact Info) Description 02/24/2023 12:30 PM EST Office Visit Orthopaedics [facility] [address] [place] [phone] Lloyd Torres MD [address] [place] [address] 04/18/2023 9:00 AM EST Office Visit Cardiology, [facility] [address] [place] [address] Mone Mcgovern CRNP [address] [place] [address] 06/07/2023 10:00 AM EDT Office Visit Nutrition & Weight Management, [facility] [address] [place] [address] Petra Cordero PA-C [address] [place] [address] 07/03/2023 2:30 PM EDT Imaging Radiology [facility] 1st Floor, [place] [address] [place] [address] 08/10/2023 9:40 AM EDT Office Visit Family Practice [facility] [address] [place] [address] Petra Block CRNP [address] [place] [address] 11/20/2023 9:00 AM EDT Office Visit Family [facility] [address] [place] [address] Petra Block CRNP [address] [place] [address] 02/13/2024 10:00 AM EST Office Visit Family [facility] [address] [place] [address] Teodoro Galaviz DO [address] [place] [address] Scheduled Procedures Name Priority Associated Diagnoses Date/Ti [...] and were consensually agreed upon. Care Teams Earth Science Laboratory Technician Relationship Specialty Start Date End Date Teodoro Galaviz DO [address] [place] [address] PCP - General Family Medicine 12/19/22 documented as of this encounter
--- OUTSIDE RECORDS SUMMARY | 2023-04-01 23:31 | External Medical Summary | Summary of Care ---
Author Name Unknown Organization [facility] Address [address] [facility] [place] [address] Phone [phone] Care Team Providers Care Watch Repair Technician Name Role Phone Teodoro Galaviz DO Primary Care Provider Encounter Details Date Type Department Care Team (Late st Contact Info) Description 02/09/2023 Telephone Family Practice [facility] [address] [place] [address] Teodoro Galaviz DO [address] [place] [address] Allergies Active Allergy Reactions Criticality Noted Date [...] As directed 0 12/15/2014 Active Glucose Blood (relocality CONTOUR NEXT TEST) STRPIndications:DM type 2, not at goal (HCC) Use to test blood sugar 6 times daily dx e11.9 540 Strip 3 01/29/2019 Active CPAP every night at bedtime. 0 Active [place] Carbonate ER 450 MG Oral Tablet Extended [...] Take by mouth. 0 Activ e Nystatin 875802 UNIT/GM External Powder (Nystop)Indications: Tinea cruris Apply [...] Additional Information Patient not taking.Reported on 02/09/2023 [employer] David 3 SensorIndications:Ty pe 2 diabetes mellitus [...] hemoglobin A1c goal of less than 7.0% ([facility]) Use to inject insulin up to 4 [...] evening meal 45 Tablet 3 01/20/2023 Active [place] Carbonate 150 MG Oral Capsule (Eskalith) Take 1 Capsule by mouth in the morning. 0 01/31/2023 Active Mounjaro 5 MG/0.5ML Subcutaneous Solution Pen-injector (Tirzepatide)Indicat ions:Diabetic retinopathy of both eyes with macular edema associated with type 2 diabetes mellitus, unspecified retinopathy severity ([facility]),Type 2 diabetes mellitus with diabetic polyneuropathy, without long-term current use of insulin ([facility]) Inject 5 mg under the [...] . Secondary hyperparathyroidism, non-renal 020 OCASIO RESEARCH OTHER*[id number] 01/29/2019 Mild persistent asthma without complication 12/11 [...] 05/06/2019 04/28/2022 Type II diabetes mellitus wi neurological manifestations 04/19/2019 11/25/2020 Pre-operative examination 01/29/2019 [...] encounter Miscellaneous Notes * Telephone Encounter - Trever De Oliveira OSA - 02/09/2023 11:16 AM EST Please call pt to schedule balance center referral documented in this encounter Plan of Treatment Upcoming Encounters Date Type Department Care Team (Late st Contact Info) Description 02/13/2023 8:30 AM EST Office Visit Pharmacy, [place] [address] [place] [address] [facility] [address] [place] [address] 04/13/2023 10:00 AM EST Office Visit Balance [facility] [address] [place] [address] Dave Howard DPT [address] [place] [address] 04/18/2023 9:00 AM EST [facility] Visit [facility] [place] [address] Mone Mcgovern CRNP [address] [facility] [place] [address] 06/07/2023 10:00 AM EDT Office Visit Nutrition & Weight Management, [facility] [address] [place] [address] Petra Cordero PA-C [address] [place] [address] 07/03/2023 2:30 PM EDT Imaging Radiology [facility] 1st Floor, [place] [address] [place] [address] 08/10/2023 9:40 AM EDT Office Visit [facility] [address] [place] [address] Petra Block CRNP [address] [place] [address] 11/20/2023 9:00 AM EDT Office Visit [facility] [address] [place] [address] Petra Block CRNP [address] [place] [address] 02/13/2024 10:00 AM EST Office Visit [facility] [address] [place] [address] Teodoro Galaviz DO [address] [place] [address] Scheduled Procedures Name Priority Associated Diagnoses Date/Ti [...] 12/25/2019, Additional history exists HbA1c 07/06/2023 01/04/2023, 082 04/2022, 08/31/2022, Additional history exists Cologuard 10/20/2023 10/19/2020, [...] and were consensually agreed upon. Care Teams Watch Repair Technician Relationship Specialty Start Date End Date Teodoro Galaviz DO [address] [place] [address] PCP - General Family Medicine 12/19/22 documented as of this encounter
--- OUTSIDE RECORDS SUMMARY | 2023-04-01 23:31 | External Medical Summary | Summary of Care ---
Author Name Unknown Organization [facility] Address [address] [facility] [place] [address] Phone [phone] Care Team Providers Care Smelter Liner Name Role Phone Teodoro Galaviz DO Primary Care Provider Reason for Referral * Evaluate & Treat - Unlimited Visits (Within 30 days (routine)) - Authorized Specialty Diagnoses / Procedures Referred By Contact Referred To Contact GI NUTRITION/IM / Gastroenterology Diagnoses History of Thuan-en-Y gastric bypass Teodoro Galaviz DO [address] [place] [address] Referral ID Status Reason Start Date Expiration Date Visits Requested Visits Authorized [id number] Authorized Specialty Services Required 3 [phone] Question Answer Referral Priority Within 30 days (routine) Where should this appointment be scheduled? [facility] For what condition is the patient being seen? Other Comments Follow up from gastric bypass Appt with Fely amezcua on 02/08 Reason for Visit * Reason Onset Date Comments Referral Requested by Specialist 01/05/2023 GI nutrition referral Encounter Details Date Type Department Care Team ([facility] st Contact Info) Description 01/05/2023 Telephone Family Practice [facility] [address] [place] [address] Teodoro Galaviz DO [address] [place] [address] Referral Requested by Specialist (GI nutri... Allergies Active Allergy Reactions Criticality Noted Date [...] as of this encounter (statuses as of 01/05/2023) Medications Medication Sig Dispensed Refills Start Date End Date Status BD INSULIN SYRINGE ULTRAFINE 30G X 1/2" 0.3 ML MISC As directed 0 12/15/2014 Active Glucose Blood ([place] CONTOUR NEXT TEST) STRPIndications:DM type 2, not at goal (HCC) Use to test blood sugar 6 times daily dx e11.9 540 Strip 3 01/29/2019 Active CPAP every night at bedtime. 0 Active [place] Carbonate ER 450 MG Oral Tablet Extended [...] Take by mouth. 0 Activ e Nystatin 375177 UNIT/GM External Powder (Nystop)Indications:T inea cruris Apply [...] as of this encounter (statuses as of 01/05/2023) Active Problems Problem Noted Date Diagnosed Date [...] . Secondary hyperparathyroidism, non-renal 020 OCASIO RESEARCH OTHER*[id number] 01/29/2019 Mild persistent asthma without complication 12/11 [...] as of this encounter (statuses as of 01/05/2023) Resolved Problems Problem Noted Date Diagnosed Date [...] knee replacement 7 03/22/2018 Bronchitis, complicated 08/11/2014 070 08/2016 Premenopause menorrhagia 05/07/201412/2018 Overview: Menses every 1-2 months x 10-30 days. Aygestin 5 mg x 5 days x [address] Fox vasectomy, CBC WNL US - fibroid EMB - excessive hormonal effect Poorly controlled type 2 diabetes mellitus 04/01/2014 04/28/2022 Jaclyn-menopause 04/01/2014 03/22/2018 Overview: Pelvic US WNL /. DM type 2, not at goal 01/29/201411/25 Overview: Feb 2014 = 8.6 Acute sinusitis 05/25/2013 11/05/2013 Pain, joint, knee, left 12/13/2012 070 08/2016 Bunion of great toe of left [...] as of this encounter (statuses as of 01/05/2023) Immunizations Name Administration Dates Next Due Influenza, [...] Notes * Telephone Encounter - Siria Galaviz - 01/05/2023 1:51 PM EDT Done * Telephone Encounter - Abena Wright RN - 01/05/2023 1:37 PM EDT Scheduling, please attach GI Nut referral to her 02/08 appt thx. Provider to address: NA Reason for Call: Referral Requested by Specialist (GI nutrition referral) Contact: Telephone Call Contact Type: Referral(s) Placed Outcome: GI Nut referral placed Face to face time spent with Patient (minutes): 0 Total Time including non face to face (minutes): 10 * Telephone Encounter - COLTEN Hutchins - 01/05/2023 10:12 AM EDT This pt has an upcoming appt on 02/08/2023 with Fely Amezcua in GI nutrition / weight management. Requesting a [facility] PEBTF referral be placed and attached to the appt. Thank you. documented in this encounter Plan of Treatment Upcoming Encounters Date Type Department Care Team (Late st Contact Info) Description 01/20/2023 10:30 AM EST Office Visit Pharmacy, [place] [address] [place] [address] [facility] [address] [place] [address] 02/08/2023 10:40 AM EST Nutrition Services Nutrition & Weight Management, [facility] [address] [place] [address] Fely Amezcua RDN [address] [place] [address] 04/18/2023 9:00 AM EST Office Visit Cardiology, [facility] [address] [place] [address] Mone Mcgovern CRNP [address] [place] [address] 05/24/2023 9:40 AM EDT Office Visit Family Practice [facility] [address] [place] [address] Teodoro Galaviz, [address] [place] [address] 06/07/2023 10:00 AM EDT Office Visit Nutrition & Weight Management, [facility] [address] [place] [address] Petra Cordero PA-C [address] [place] [address] 07/03/2023 2:30 PM EDT Imaging Radiology [facility] 1st Floor, [place] [address] [place] [address] 11/20/2023 9:00 AM EDT Office Visit Family Practice [facility] [address] [place] [address] Petra Block CRNP [address] [place] [address] Scheduled Procedures Name Priority Associated Diagnoses Date/Ti me COLONOSCOPY FLEXIBLE PROXIMA L DIAGNOSTIC Recall Special screening for malignant neoplasms, colon Scheduled Referrals Name Type Priority Associated Diagnoses Orde r Schedule GI NUTRITION REFERRAL OP Referral Within 30 days (routine) History of Thuan-en-Y gastric bypass Ordered: 01/05/2023 Health Maintenance Due Date Last Done Comments [...] 01/19/2023 01/20/2020, 07/12, 09/23/2013, Additional history exists DIABETES-EYE EXAM 06/17/2023 06/16/2022, [...] as of this encounter Visit Diagnoses Diagnosis History of Thuan-en-Y gastric bypass- Primary Bariatric surgery status documented in this encounter Advance Directives Latest [...] and were consensually agreed upon. Care Teams Smelter Liner Relationship Specialty Start Date End Date Teodoro Galaviz DO [address] [place] [address] PCP - General Family Medicine 12/19/22 documented as of this encounter
--- OUTSIDE RECORDS SUMMARY | 2023-04-01 23:31 | External Medical Summary | Summary of Care ---
Author Name Unknown Organization [facility] Address [address] [place] [address] Care Team Providers Care Electrician Refinery Name Role Phone Teodoro Galaviz DO Primary Care Provider Reason for Visit * Reason Comments NEW PATIENT L foot pain * Evaluate & Treat - Unlimited Visits (Within 10 days (routine)) - Authorized Specialty Diagnoses / Procedures Referred By Gustavo nelson Referred To Contact Diagnoses Left foot pain Teodoro Galaviz DO [address] [facility] [place] [address] Lloyd Torres MD [address] [facility] [address] [place] [address] Referral ID Status Reason Start Date Expiration Date Visits Requested Visits Authorized [id number] Authorized Specialty Services Required 3 02/09/[id number] Encounter Details Date Type Department Care Team (Late st Contact Info) Description 02/24/2023 12:30 PM EST Office Visit Orthopaedics [facility] [address] [place] [phone] Lloyd Torres MD [address] [facility] [address] [place] [address] Chronic pain in left foot*; Bone disorder Allergies Active Allergy Reactions Criticality Noted Date [...] CPAP every night at bedtime. 0 Active [place] Carbonate ER 450 MG Oral Tablet Extended [...] Take by mouth. 0 Activ e Nystatin 360861 UNIT/GM External Powder (Nystop)Indications: Tinea cruris Apply [...] [facility]) Use to inject insulin up to 4 [...] evening meal 45 Tablet 3 01/20/2023 Active [place] Carbonate 150 MG Oral Capsule (Eskalith) Take 1 Capsule by mouth in the morning. 0 01/31/2023 Active Mounjaro 5 MG/0.5ML Subcutaneous Solution Pen-injector (Tirzepatide)Indicat ions:Diabetic retinopathy of both eyes with macular edema associated with type 2 diabetes mellitus, unspecified retinopathy severity ([facility]),Type 2 diabetes mellitus with diabetic polyneuropathy, without long-term current use of insulin ([facility]) Inject 5 mg under the skin once [...] . Secondary hyperparathyroidism, non-renal 020 OCASIO RESEARCH OTHER*[id number] 01/29/2019 Mild persistent asthma without complication 12/11 [...] as of this encounter Progress Notes * Lloyd Torres MD - 02/24/2023 12:35 PM EST Patient 58-year-old female seen for evaluation of lateral foot pain. She has a significant past medical history including bipolar disease but more importantly early neuropathy at least on the right foot and also history of diabetes that she takes oral medication for. Patient has pain along the lateral border of the foot. Sometimes it is a sharp pain. She is developing some callus along the fifth metatarsal head and along the shaft and into the base. She had previous MRI in the past which has shown some increased uptake in the lateral aspect of her foot consistent with stress along the fifth metatarsal. She also has underlying second third metatarsal tarsal arthritis but this is not where her pain is. Past medical and surgical history reviewed and updated along with allergies to medications. She is non-smoker. Physical exam well-appearing female no apparent distress standing alignment left lower extremity specific reveals ultimately in neutral alignment through the hindfoot she does have a tendency to havemore of a supinated foot. She has no pain along the medial side she has a bunion that is not symptomatic she has pain along the lateral border of the foot from the fifth metatarsal base and along theshaft and callus summation and especially underneath the fifth metatarsal head. She is neurologically grossly intact to light touch today. 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 58-year-old diabetic with some symptoms that could be consistent with neuropathy but also could be secondary to metatarsus adductus and lateral foot overload. We discussed her vitamin D level is less than 30 back in December I would recommend checking that again and supplementing appropriately thereafter. She is certainly eligible for custom molded diabeticinserts to help this may even be better to utilize a lateral heel wedge with that short-term a lateral heel wedge it would be recommended in her regular shoes and then that could be incorporated intoher insert in the future. I do not see anything from an orthopedic surgical standpoint at this point in time. Lloyd Torres Jr, MD Orthopaedics Director, Foot and Ankle Surgery documented in this encounter Plan of Treatment Upcoming Encounters Date Type Department Care Team (Late st Contact Info) Description 03/10/2023 8:30 AM EST Office Visit Pharmacy, [place] [address] [place] [address] [facility] [address] [place] [address] 04/18/2023 9:00 AM EST Office Visit Cardiology, [facility] [address] [place] [address] Mone Mcgovern CRNP [address] [place] [address] 06/07/2023 10:00 AM EDT Office Visit Nutrition & Weight Management, [facility] [address] [place] [address] Petra Cordero PA-C [address] [place] [address] 07/03/2023 2:30 PM EDT Imaging Radiology [facility] 1[address] [facility] [address] [place] [address] 08/10/2023 9:40 AM EDT Office Visit [facility] [address] [place] [address] Petra Block CRNP [address] [place] [address] 11/20/2023 9:00 AM EDT Office Visit [facility] [address] [place] [address] Petra Block CRNP [address] [place] [address] 02/13/2024 10:00 AM EST Office Visit [facility] [address] [place] [address] Teodoro Galaviz DO [address] [place] [address] Pending Results Name Type Priority Associated Diagnoses Date /Time XR FOOT 3 OR MORE VIEWS Medical Imaging Routine Chronic pain in left foot 02/24/2023 12:10 PM EST XR ANKLE 2 VIEWS Medical Imaging Routine Chronic pain in left foot 02/24/2023 12:10 PM EST Scheduled Orders Name Type Priority Associated Diagnoses Orde r Schedule 25-HYDROXY VITAMIN D Lab Routine Chronic pain in left foot Bone disorder Expected: 02/24/2023, Expires: 02/25/2024 Scheduled Procedures Name Priority Associated Diagnoses Date/Ti [...] as of this encounter Visit Diagnoses Diagnosis Chronic pain in left foot- Primary Pain in limb Bone disorder Disorder of bone and cartilage, unspecified documented in this encounter Advance Directives Latest [...] were consensually agreed upon. Care Teams Electrician Refinery Relationship Specialty Start Date End Date Teodoro Galaviz DO [address] [place] [address] PCP - General Family Medicine 12/19/22 documented as of this encounter
--- OUTSIDE RECORDS SUMMARY | 2023-04-01 23:31 | External Medical Summary | Summary of Care ---
Author Name Unknown Organization [facility] Address [address] [facility] [place] [address] Phone [phone] Care Team Providers Care Security Intern Name Role Phone Teodoro Galaviz DO Primary Care Provider Reason for Referral * Evaluate & Treat - Unlimited Visits (Within 10 days (routine)) - Authorized Specialty Diagnoses / Procedures Referred By Gustavo t Referred To Contact Orthopaedic Surgery / Orthopedics Diagnoses Pain of left lower extremity Teodoro Galaviz DO [address] [place] [address] Lloyd Torres MD [address] [facility] [address] [place] [address] Referral ID Status Reason Start Date Expiration Date Visits Requested Visits Authorized [id number] Authorized Specialty Services Required 3 [phone] [...] DO [address] [place] [address] Referral ID Status Reason Start Date Expiration Date Visits Requested Visits Authorized [id number] Authorized Specialty Services Required 3 [phone] Question Answer Referral Priority Within 10 days (routine) Where should this appointment be scheduled? Deborah Is this order intended for the [facility] at [facility] in [place], [place] Yes Along with the dizziness, has there been a sudden change in hearing or tinnitus within the last two weeks? No Is the dizziness triggered with rolling over in bed and lasting seconds? No Is the dizziness motion-related, spontaneous (non-predictable) or both? Both Comments Referral to: Otolaryngology Vestibular and Balance Center [facility] For services that may include: 1. Audiologic and vestibular testing 2. Otolaryngology consultation 3. Vestibular Rehabilitation [Physical Therapy] evaluation and treatment Reason for Visit * Reason Comments NEW PATIENT Pt here for return/n ew pt. Encounter Details Date Type Department Care Team (Late st Contact Info) Description 02/09/2023 10:20 AM EST Office Visit Family [facility] [address] [place] [address] Teodoro Galaviz DO [address] [place] [address] Diabetic retinopathy of both eyes with macular edema associated with type 2 diabetes mellitus, unspecified retinopathy severity (HCC)*; Dizziness; Secondary hyperparathyroidism, non-renal (HCC); Other specified hypothyroidism; Type 2 diabetes mellitus with diabetic polyneuropathy, without long-term current use of insulin (HCC); Type 2 diabetes mellitus with diabetic peripheral angiopathy without gangrene, without long-term current use of insulin ([facility]); Mild intermittent asthma with allergic rhinitis without [...] CPAP every night at bedtime. 0 Active [place] Carbonate ER 450 MG Oral Tablet Extended [...] Acid) Take by mouth. 0 Active Nystatin 804697 UNIT/GM External Powder (Nystop)Indication s:Tinea cruris Apply [...] hemoglobin A1c goal of less than 7.0% ([facility]) Use as directed. Change every 14 days e11.9 2 Each 11 3 Active rOPINIRole HCl 1 MG Oral Tablet (Requip) Take 2 Tablets by mouth at bedtime. 180 Tablet 0 3 Active Tresiba FlexTouch 100 UNIT/ML Subcutaneous Solution Pen-injector (Insulin Degludec)Indicatio ns:Type 2 diabetes mellitus with hemoglobin A1c goal of less than 7.0% ([facility]) Inject 14 Units under the skin in [...] hemoglobin A1c goal of less than 7.0% ([facility]) Use to inject insulin up to [...] evening meal 45 Tablet 3 3 Active [place] Carbonate 150 MG Oral Capsule (Eskalith) Take 1 Capsule by mouth in the morning. 0 3 Active Mounjaro 5 MG/0.5ML Subcutaneous Solution Pen-injector (Tirzepatide)Indic ations:Diabetic retinopathy of both eyes with macular edema associated with type 2 diabetes mellitus, unspecified retinopathy severity (HCC),Type 2 diabetes mellitus with diabetic polyneuropathy, without long-term current use of insulin ([facility]) Inject 5 mg under the skin [...] a week. 3 mL 5 3 023 Discontinued(Vt dication List Clean Up) Mounjaro 2.5 MG/0.5ML Subcutaneous Solution Pen-injector (Tirzepatide)Indic ations:Type 2 diabetes mellitus with hemoglobin A1c goal of less than 7.0% ([facility]) Inject 2.5 mg under the skin once [...] . Secondary hyperparathyroidism, non-renal 020 OCASIO RESEARCH OTHER*[id number] 01/29/2019 Mild persistent asthma without complication 12/11 [...] evaluation with Dr Torres ankle/foot ortho At [facility] - ORTHOPAEDICS REFERRAL OP Dyslipidemia - [...] Description 02/13/2023 8:30 AM EST Office Visit [address] [place] [address] [facility] [address] [facility] [place] [address] 04/18/2023 9:00 AM EST Office Visit Cardiology, [facility] [address] [place] [address] Mone Mcgovern CRNP [address] [place] [address] 06/07/2023 10:00 AM EDT Office Visit Nutrition & Weight Management, [facility] [address] [place] [address] Petra Cordero PA-C [address] [place] [address] 07/03/2023 2:30 PM EDT [facility] [address] [place] [address] 08/10/2023 9:40 AM EDT Office Visit Family Practice [facility] [address] [place] [address] Petra Block CRNP [address] [place] [address] 11/20/2023 9:00 AM EDT Office Visit Family Practice [facility] [address] [place] [address] Petra Block CRNP [address] [place] [address] 02/13/2024 10:00 AM EST Office Visit Family Practice [facility] [address] [place] [address] Teodoro Galaviz DO [address] [place] [address] Scheduled Orders Name Type Priority Associated Diagnoses [...] and were consensually agreed upon. Care Teams Security Intern Relationship Specialty Start Date End Date Teodoro Galaviz DO [address] [place] [address] PCP - General Family Medicine 12/19/22 documented as of this encounter
--- OUTSIDE RECORDS SUMMARY | 2023-04-01 23:31 | External Medical Summary | Summary of Care ---
Author Name Unknown Organization [facility] Address [address] [facility] [place] [address] Phone [phone] Care Team Providers Care Personnel Research Scientist Name Role Phone Teodoro Galaviz Primary Care Provider Reason for Visit * Reason Onset Date Comments Appointment 02/24/2023 Encounter Details Date Type Department Care Team (Late st Contact Info) Description 02/24/2023 Telephone Gastroenterology, [address] [phone] Bindu Beltran CRNP [address] [...] CPAP every night at bedtime. 0 Active [place] Carbonate ER 450 MG Oral Tablet Extended [...] Take by mouth. 0 Activ e Nystatin 307777 UNIT/GM External Powder (Nystop)Indications: Tinea cruris Apply [...] evening meal 45 Tablet 3 01/20/2023 Active [place] Carbonate 150 MG Oral Capsule (Eskalith) Take 1 Capsule by mouth in the morning. 0 01/31/2023 Active Moun[place]o 5 MG/0.5ML Subcutaneous Solution Pen-injector (Tirzepatide)Indicat ions:Diabetic retinopathy of both eyes with macular edema associated with type 2 diabetes mellitus, unspecified retinopathy severity ([facility]),Type 2 diabetes mellitus with diabetic polyneuropathy, without [...] . Secondary hyperparathyroidism, non-renal 020 [facility]AS[facility] RESEARCH OTHER*[id number] 01/29/2019 Mild persistent asthma without complication 12/11 [...] 432 06/2008 PSG -- CPAP 10 cwp [facility] documented as of this encounter (statuses [...] if patient want to be scheduled in [place] or [place] . documented in this encounter Plan of Treatment Upcoming Encounters Date Type Department Care Team (Late st Contact Info) Description 03/10/2023 8:30 AM EST Office Visit Pharmacy, [place] [address] [place] [address] [facility] [address] [place] [address] 04/18/2023 9:00 AM EST Office Visit Cardiology, [facility] [address] [facility] [facility] [place] [address] Mone Mcgovern CRNP [address] [place] [address] 06/07/2023 10:00 AM EDT Office Visit Nutrition & Weight Management, [facility] [address] [place] [address] Petra Cordero PA-C [address] [place] [address] 07/03/2023 2:30 PM EDT Imaging Radiology [facility], [place] [address] [place] [address] 08/10/2023 9:40 AM EDT Office Visit [facility] [address] [place] [address] Petra Block CRNP [address] [place] [address] 11/20/2023 9:00 AM EDT Office Visit [facility] [address] [place] [address] Petra Block CRNP [address] [place] [address] 02/13/2024 10:00 AM EST Office Visit [facility] [address] [place] [address] Teodoro Galaviz DO [address] [place] [address] Scheduled Procedures Name Priority Associated Diagnoses Date/Ti [...] and were consensually agreed upon. Care Teams Personnel Research Scientist Relationship Specialty Start Date End Date Teodoro Galaviz DO [address] [place] [address] PCP - General Family Medicine 12/19/22 documented as of this encounter
--- OUTSIDE RECORDS SUMMARY | 2023-04-01 23:32 | External Medical Summary ---
Author Name Unknown Address Unknown Organization K01:[facility] - [address] [place] [address] Laboratory Report Ordering Provider Test Date Status ELPIDIO MACHADO 01/04/2023 10:49:04 Final Deficient: <20 ng/mL
Ins ufficient: 20-29 ng/mL
Recommended/Optimum:30-50 ng/mL

Vitamin D intoxication is rare. If suspicious of Vitamin D toxicity, evaluation of serum Calcium and PTH is recommended. Observation Date Value Abnormality Reference (Units ) Status 25-OH Vitamin D total 01/04/2023 10:49:04 28 >19 (ng/mL) Final Performing Location [facility] - [address] [place] [address]
--- OUTSIDE RECORDS SUMMARY | 2023-04-01 23:32 | External Medical Summary | Summary of Care ---
Author Name Unknown Organization [facility] Address [address] [facility] [place] [address] Phone [phone] Care Team Providers Care Nuclear Medicine Officer Name Role Phone Teodoro Galaviz Primary Care Provider Reason for Visit * Reason Comments Outpatient Testing Encounter Details Date Type Department Care Team (Late st Contact Info) Description 01/04/2023 10:50 AM EDT Laboratory Laboratory, [facility] [address] [facility] [place] [phone] [facility] [id number] Intestinal postoperative nonabsorption Allergies Active Allergy Reactions [...] CPAP every night at bedtime. 0 Active [place] Carbonate ER 450 MG Oral Tablet [...] Take by mouth. 0 Activ e Nystatin [id number] UNIT/GM External Powder (Nystop)Indications:T inea cruris Apply [...] A1c goal of less than 7.0% ([facility]) Use as directed. Change every 14 days [...] . Secondary hyperparathyroidism, non-renal 020 OCAS[facility] RESEARCH OTHER*[id number] 01/29/2019 Mild persistent asthma without complication 12/11 [...] 432 06/2008 PSG -- CPAP 10 cwp [facility] documented as of this encounter (statuses [...] 01/20/2023 10:30 AM EST Office Visit Pharmacy, [place] [address] [place] [address] [facility] [address] [place] [address] 02/08/2023 10:40 AM EST Nutrition Services Nutrition & Weight Management, [facility] [address] [place] [address] Fely Sorenson RDN [address] [place] [address] 04/18/2023 9:00 AM EST Office Visit Cardiology, [facility] [address] [place] [address] Mone Mcgovern CRNP [address] [place] [address] 05/24/2023 9:40 AM EDT Office Visit Family Practice [facility] [address] [place] [address] Teodoro Galaviz, DO [address] [place] [address] 06/07/2023 10:00 AM EDT Office Visit Nutrition & Weight Management, [facility] [address] [place] [address] Petra Cordero PA-C [address] [place] [address] 07/03/2023 2:30 PM EDT [facility] [address] [place] [address] 11/20/2023 9:00 AM EDT Office Visit Family Practice [facility] [address] [place] [address] Petra Block CRNP [address] [place] [address] Pending Results Name Type Priority Associated Diagnoses Date /Time CBC WITH WBC DIFFERENTIAL Lab Routine Intestinal postoperative nonabsorption 01/04/2023 10:49 AM EDT COMPREHENSIVE METABOLIC PANEL Lab Routine Intestinal postoperative [...] Intestinal postoperative nonabsorption 01/04/2023 10:49 AM EDT CBC Lab Routine Intestinal postoperative nonabsorption 01/04/2023 10:49 AM EDT DIFFERENTIAL, AUTOMATED Lab Routine Intestinal postoperative nonabsorption 01/04/2023 10:49 [...] as of this encounter Visit Diagnoses Diagnosis Intestinal postoperative [...] and were consensually agreed upon. Care Teams Nuclear Medicine Officer Relationship Specialty Start Date End Date Teodoro Galaviz DO [address] [place] [address] PCP - General Family Medicine 12/19/22 documented as of this encounter
--- OUTSIDE RECORDS SUMMARY | 2023-04-01 23:32 | External Medical Summary ---
Author Name Unknown Address Unknown Organization K01:[facility] [place] [address] [place] [address] Laboratory Report Ordering Provider Test Date Status ELPIDIO MACHADO 01/04/2023 10:49:04 Final Observation Date Value Abnormality Reference (Units ) Status Vitamin B12 01/04/2023 10:49:04 1347 Above high normal 232-1245 (pg/mL) Final Performing Location [facility] - [address] [place] [address]
--- OUTSIDE RECORDS SUMMARY | 2023-04-01 23:32 | External Medical Summary ---
Author Name Unknown Address Unknown Organization : Laboratory Report Ordering Provider Test Date Status ELPIDIO MACHADO 01/04/2023 10:49:04 Final Observation Date Value Abnormality Reference (Units ) Status Thiamine [Moles/volume] in Blood 01/04/2023 10:49:04 127 78-185 (nmol/L) Final Vitamin supplementation with in 24 hours prior to
blood draw may affect the accuracy of the results.
This test was developed and its analytical performance
characteristics have been determined by [employer] [place], [place]. It has
not been cleared or approved by the [place].S. Food and Drug
Administration. This assay has been validated pursuant
to the CLIA regulations and is used for clinical
purposes.

Test Performed at:
[facility]
[address] [facility]
[place] [address]
Sajan Peterson M.D., Ph.D.,Director of Laboratories Performing Location
--- OUTSIDE RECORDS SUMMARY | 2023-04-01 23:32 | External Medical Summary | Summary of Care ---
Author Name Unknown Organization [facility] Address [address] [facility] [place] [address] Phone [phone] Care Team Providers Care Adjunct English Instructor Name Role Phone Teodoro Galaviz Primary Care Provider Reason for Visit * Reason Comments Weight Management Bypass - 05/06/19 * Evaluate & Treat - Unlimited Visits (Within 10 days (routine)) - Closed Specialty Diagnoses / Procedures Referred By Contact Referred To Contact GI NUTRITION/IM / Gastroenterology Diagnoses History of gastric bypass Bindu Beltran CRNP [address] [place] [address] Referral ID Status Reason Start Date Expiration Date V isits Requested Visits Authorized [id number] Closed Specialty Services Required 12/07/2022 1 1 Encounter Details Date Type Department Care Team (Latest Contact Info) Description 01/04/2023 10:00 AM EDT Office Visit Nutrition & Weight Management, [facility] [address] [place] [id number] Destiny De Leon PA-C [address] [place] [address] Intestinal postoperative nonabsorption*; History of gastric bypass; Type 2 diabetes mellitus with hemoglobin A1c goal of less than 7.0% (HCC); Dyslipidemia; Secondary hyperparathyroidism, non-renal (HCC); COLTEN (obstructive sleep apnea); Mild persistent asthma without complication; Hiatal hernia; HTN, goal below 130/80; Gastroesophageal reflux disease with esophagitis without hemorrhage; Iron deficiency anemia due to chronic blood loss Allergies Active Allergy Reactions Criticality Noted Date [...] TEST) STRPIndications:DM type 2, not at goal ([facility]) Use to test blood sugar 6 times daily dx e11.9 540 Strip 3 01/29/2019 Active CPAP every night at bedtime. 0 Active Netarts Carbonate ER 450 MG Oral Tablet Extended [...] Take by mouth. 0 Activ e Nystatin 771365 UNIT/GM External Powder (Nystop)Indications: Tinea cruris Apply [...] of less than 7.0% ([facility]) Use as directed. Change every 14 days [...] of less than 7.0% ([facility]),Type 2 diabetes mellitus with diabetic polyneuropathy, without long-term current use of insulin ([facility]) Inject 0.75 mg under the skin once a week. 3 mL 5 12/19/2022 Active Tresiba FlexTouch 100 UNIT/ML Subcutaneous Solution Pen-injector (Insulin Degludec)Indications :Type 2 diabetes mellitus with hemoglobin A1c goal of less than 7.0% ([facility]) Inject 14 Units under the skin in [...] of less than 7.0% ([facility]) Inject 2.5 mg under the skin once a week. 2 mL 1 01/04/2023 4 Active Triamcinolone Acetonide 0.5 % External Cream (Aristocort) Apply topically to affected area 2 times a day. To affected area. 80 g 0 10/12/2022 3 Discontinue d(Medicatio n List Clean Up) documented as of this encounter (statuses as [...] . Secondary hyperparathyroidism, non-renal 020 [facility] OTHER*[id number] 01/29/2019 Mild persistent asthma without complication 12/11 [...] 432 06/2008 PSG -- CPAP 10 cwp [facility] documented as of this encounter [...] bilateral knee replacement 7 03/22/2018 Bronchitis, complicated 08/11/201408/2016 Premenopause menorrhagia 05/07/201412/2018 Overview: Menses every 1-2 [...] Sign Reading Time Taken Comments Blood Pressure 126/68 01/04/2023 9:47 AM EDT Pulse 64 01/04/2023 9:47 AM EDT Temperature - - Respiratory Rate - - Oxygen Saturation - - Inhaled Oxygen Concentration - - Weight 88.9 kg (196 lb) 01/04/2023 9:47 AM EDT Height 163.8 cm (5' 4.5") 01/04/2023 9:47 AM EDT Body Mass Index 33.12 01/04/2023 9:47 AM EDT documented in this [...] as of this encounter Progress Notes * Destiny De Leon PA-C - 01/04/2023 10:04 AM EDT [facility] Post Gastric Bypass 3 years post op Nursing Notes: Shelley Feldman LPN 01/04/23 0950 Sign at exiting of workspace Pt verified identity by last name and date. Chief Complaint Patient presents with Weight Management Bypass - 05/06/19 Waist circumference 44 inches Neck circumference 12.5 inches Waist Circumference 44" Referring physician: BETTY Lovemikhail Smith is a 57 year old female who presents in follow up to the comprehensive weight management clinic. HPI The patient is s/p laprascopic Gastric Bypass by Dr. Leon on April 11, 2019. - Weight at the initial clinic visit 364 lbs - Weight at the time of the surgery 357 lbs - Today's weight: 196 lbs - Total weight loss of -161 lbs since surgery, and -168 lbs since initial weight in clinic - Patient's last follow up with GI/Nutrition was on 09/03/19 weight 275 - The patient's weight has -79 lbs since the last visit Wt Readings from Last 5 Encounters: 01/04/23 88.9 kg (196 lb) 01/02/23 89.8 kg (198 lb) 12/19/22 90.4 kg (199 lb 5 oz) 12/17/22 91.4 kg (201 lb 9.6 oz) 12/09/22 88.9 kg (196 lb) 01/04/23 -here to reestablish -having abdominal pain when eating sugar (cakes, cookies), drinking sweet tea -didn't tolerate ozempic d/t abdominal pain with sweet tea -on trulicity - follows with MTM Current recommended meal plan: Stage 4: Describes typical diet history/24 hr recall Current diet: Breakfast: coffee with creamer, toast with PB OR veggie omelet OR Carpenter's breakfast sandwich Snack: cheese stick, crackers, snap peas Lunch: sandwich OR chicken nuggets Snack: chex mix Dinner: chicken, veggie OR pizza Snack: potato sticks or crackers Drinks: [employer]onal[employer] sweet iced tea, water,, coffee with cream Restaurant meals: 6x per week Patient is not getting 60 grams of protein a day. Patient is getting 64 ounces of fluid a day. Activity Level: Light activity TYPE/DURATION: ADL Psychosocial Adjustment Issues: No, no Issues with body image, stress management, relationships, and addiction transfer Alcohol Use: None Tobacco Use: Never Substance Abuse: None Past Medical History Hypertension: Yes, on medications Dyslipidemia: Yes, on treatment Sleep Apnea: Yes, on CPAP Diabetes: Yes Both Insulin and Noninsulin medications GERD: Yes: Requiring medications: Yes Patient Active Problem List Diagnosis Code Hypothyroidism E03.9 Gastroesophageal reflux disease with esophagitis K21.00 Bipolar I disorder, most recent episode depressed, mild ([facility]) F31.31 Type 2 diabetes mellitus with hemoglobin A1c goal of less than 7.0% ([facility]) E11.9 HTN, goal below 130/80 I10 Dyslipidemia E78.5 Iron deficiency anemia D50.9 Generalized osteoarthritis M15.9 COLTEN (obstructive sleep apnea) G47.33 Asthma with allergic rhinitis J45.909 Fibroid uterus D25.9 Lumbar degenerative disc disease M51.36 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 Mild persistent asthma without complication J45.30 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 H60.21 [facility] OTHER*[id number] Secondary hyperparathyroidism, non-renal ([facility]) E21.1 Hypocalciuria E83.59 History of bariatric surgery Z98.84 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 RLS (restless legs syndrome) G25.81 Peripheral neuropathy due to metabolic disorder ([facility]) E88.9, G63 Diabetic retinopathy of both eyes associated with type 2 diabetes mellitus ([facility]) E11.319 Hiatal hernia K44.9 Primary osteoarthritis of left foot M19.072 Abdominal pain, generalized R10.84 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 (HCC) E11.42 Type 2 diabetes mellitus with diabetic peripheral angiopathy without gangrene ([facility]) E11.51 Osteoarthritis of both acromioclavicular joints M19.011, M19.012 DDD (degenerative disc disease), cervical M50.30 Thoracic degenerative disc disease M51.34 Irritable bowel syndrome with both constipation and diarrhea K58.2 History of Thuan-en-Y gastric bypass Z98.84 Other chest pain R07.89 Social Connections: Not on file Review of patient's allergies indicates: Allergen Reactions Atarax [Hydroxyzine Hcl] Hypotension Bee Venom Other reaction(s): HIVES AND DIFFICULTY BREATHING Depakote [Divalproex Sodium] Anxious ,feels like she's loosing her mind Macrobid [Nitrofurantoin Monohyd Macro] Headache,nausea Quetiapine Other reaction(s): HALLUCINATIONS, JITTERYNESS Ranitidine Hcl Seizure Seroquel [Quetiapine Fumarate] Jittery, cant sit still Valproic Acid Other reaction(s): "LOOSE MIND" Alprazolam Xanax Ciprofloxacin Palpitations Clarithromycin Delusional and nausea Doxycycline Neuro complications (Please comment) Altered mental status Oxycodone Hcl Other (Please comment) Altered MS Penicillins Pt says no idea what happens. Pt thinks a rash as a very young child age 7-8 Sulfa Antibiotics Upset stomach Zonalon [Doxepin Hcl] Other (Please comment) Caused burning to application site, jitteriness Clindamycin Other (Please comment) Strange feeling in head per patient Taking supplements as ordered for each of the following: Multivitamin- Flintstones or Women's on occasion Calcium- none Vitamin D- none B12- every month at home, B12 gummy Other Gummy Vitamin C, Hail/skin/nail Current Outpatient Medications Medication Sig Dispense Refill Glucose Blood (TAYA CONTOUR NEXT TEST) STRP Use to test blood sugar 6 times daily dx e11.9 540 Strip 3 CPAP every night at bedtime. Netarts Carbonate ER 450 MG Oral Tablet Extended Release (Lithobid ER) Take 1 Tablet by mouth in the morning. In the morning.. Meclizine HCl 25 MG Oral Tablet (Antivert) Take 1 Tablet by mouth 3 times a day as needed for Dizziness. 30 Tablet 1 traMADol HCl 50 MG Oral Tablet (Ultram) Take 1 Tablet by mouth every 6 hours as needed for Pain, Severe. 30 Tablet 0 Triamcinolone Acetonide 0.1 % External Cream (Aristocort) Apply topically to affected area 2 times a day. To affected area arm and leg. 60 g 5 Cyanocobalamin 1000 MCG/ML Injection Solution (Cyanocobalamin) INJECT DIRECTED 1,000 MCG EVERY 30 DAYS . 3 mL 3 Diclofenac Sodium 1 % External Gel Apply topically to affected area. Apply to effected areas Vitamin C Adult Gummies 125 MG Oral Tablet Chewable (Ascorbic Acid) Take by mouth. Nystatin 917768 UNIT/GM External Powder (Nystop) Apply topically to affected area 3 times a day. Apply to affected area skin folds 60 g 0 Levothyroxine Sodium 125 MCG Oral Tablet (Levoxyl) Take 1 Tablet by mouth in the morning. (at least30 min prior to breakfast or other meds). 30 Tablet 11 Pantoprazole Sodium 40 MG Oral Tablet Delayed Release (Protonix) Take 1 Tablet by mouth in the morning. 90 Tablet 3 Aspirin 81 MG Oral Tablet Delayed Release Take 1 Tablet by mouth in the morning. Furosemide 20 MG Oral Tablet (Lasix) Take 1 Tablet by mouth in the morning. 90 Tablet 3 Loratadine 10 MG Oral Tablet (Claritin) Take 1 Tablet by mouth daily as needed for Rhinitis. Rosuvastatin Calcium 20 MG Oral Tablet (Crestor) Take 1 Tablet by mouth in the morning. 90 Tablet 3 Nitroglycerin 0.4 MG Sublingual Tablet Sublingual (Nitrostat) Place 1 Tablet under the tongue every5 minutes as needed for Pain, Chest. up to 3 doses in 15 minutes 25 Tablet 11 FreeStyle David 3 Sensor Use as directed. Change every 14 days e11.9 2 Each 11 rOPINIRole HCl 1 MG Oral Tablet (Requip) Take 2 Tablets by mouth at bedtime. 180 Tablet 0 Trulicity 0.75 MG/0.5ML Subcutaneous Solution Pen-injector (Dulaglutide) Inject 0.75 mg under the skin once a week. 3 mL 5 Tresiba FlexTouch 100 UNIT/ML Subcutaneous Solution Pen-injector (Insulin Degludec) Inject 14 Unitsunder the skin in the morning. Replaces basaglar. 15 mL 3 NovoLOG FlexPen 100 UNIT/ML Subcutaneous Solution Pen-injector (insulin aspart) Inject 8 Units under the skin in the morning and 8 Units at noon and 8 Units in the evening. Inject with meals. BD Pen Needle Short U/F 31G X 8 MM (Insulin Pen Needle) Use to inject insulin up to 4 times daily 400 Each 3 Mounjaro 2.5 MG/0.5ML Subcutaneous Solution Pen-injector (Tirzepatide) Inject 2.5 mg under the skinonce a week. 2 mL 1 BD INSULIN SYRINGE ULTRAFINE 30G X 1/2" 0.3 ML MISC As directed 0 Syringe 25G X 1" 3 ML Use as directed for B12 injection once monthly 50 Each 0 No current facility-administered medications for this visit. Review of Systems: Review of Systems Gastrointestinal: Positive for abdominal pain. Negative for constipation, diarrhea, nausea and vomiting. All other systems reviewed and are negative. Physical Exam: BP 126/68 | Pulse 64 | Ht 1.638 m (5' 4.5") | Wt 88.9 kg (196 lb) | BMI 33.12 kg/m | BSA 2.01 m General: Patient awake alert and oriented. Patient is well appearing and in no acute distress. Skin: No rashes. HEENT: Head is atraumatic, normocephalic. EOMs intact Abdomen: Obese Neuro: No focal deficits Psych: Appropriate mood and affect. Assessment/Plan: S/P Gastric Bypass Surgery: Diet Will continue with current meal plan. Vitamins The patient will start MVI, Calcium with Vitamin D, Vitamin D, and Vitamin B12 Injections at home once a month Liver Biopsy: Yes, NAFLD Fibrosis stage: 1 Hepatology Referral: Less than three, no referral Bariatric Episode Resolved (BPD/RYGB/VSG): not applicable PPI: Remains on treatment. GOALS - aim for 60-80 grams of protein a day - aim for 64oz of fluids a day - continue to increase physical activity - continue the following vitamins for life: - Multivitamin - Calcium Citrate+Vitamin D3 7899-2410 mg calcium daily - B12 1000 mcg injections at least every 3mo -Vitamin D 3,000 IU total per day - Do NOT skip meals--eat small frequent meals/snacks throughout the day - Eat slowly--take 20-30 minutes for each meal - Chew food thoroughly to applesauce consistency [place] was seen today for weight management. Diagnoses and all orders for this visit: Intestinal postoperative nonabsorption - CBC WITH WBC DIFFERENTIAL; Future - COMPREHENSIVE METABOLIC PANEL; Future - FOLIC ACID; Future - IRON SCREEN, INCLUDING TIBC; Future - FERRITIN; Future - VITAMIN A (RETINOL); Future - METHYLMALONIC ACID, SERUM; Future - VITAMIN B1 (THIAMINE), BLOOD, LC/MS/MS; Future - HEMOGLOBIN A1C; Future - PTH; Future - 25-HYDROXY VITAMIN D; Future - COPPER, SERUM OR PLASMA; Future - ZINC; Future - VITAMIN B12; Future -labs today -restart vitamins pending labs -discussed stage 4 diet and eating habits -switch from Trulicity to Mounjaro if covered - failed Trulicity and Ozempic -suspect abd pain is related to dietary choices - discussed today History of gastric bypass Type 2 diabetes mellitus with hemoglobin A1c goal of less than 7.0% (HCC) - Mounjaro 2.5 MG/0.5ML Subcutaneous Solution Pen-injector (Tirzepatide); Inject 2.5 mg under the skin once a week. Dyslipidemia -continue statin Secondary hyperparathyroidism, non-renal (HCC) -not currently on calcium d/t elevated calcium level in past (was taking a lot of Tums at that time) -had been seen by endocrinology, last seen in 2020 -recheck labs today- will likely restart calcium COLTEN (obstructive sleep apnea) - do not advise stopping CPAP on own--resolution of COLTEN typically requires significant wt loss; recommend following up with sleep med should CPAP become uncomfortable as settings & mask may need to be adjusted Mild persistent asthma without complication Hiatal hernia -s/p repair HTN, goal below 130/80 -continue current regimen Gastroesophageal reflux disease with esophagitis without hemorrhage -continue PPI Iron deficiency anemia due to chronic blood loss The patient agreed to try the plan as discussed and return in two months. They were encouraged to call or send a patient portal message in the meantime with any questions or concerns prior to their next visit. I spent a total of 40 minutes on the date of service in preparation, delivery, and documentation ofthe care provided to [place] Smith excluding any time spent in the performance of separately billed services. This included, but was not limited to, providing counseling about the benefits of weight loss, about their nutritional status, detailed explanations about calorie count, types of nutrients to choose,and composition of the meals. Motivational interview provided in order to prepare the patient to achieve future goals. Destiny BOYLE, MPH [facility] Nutrition and Weight Management [facility] documented in this encounter Nursing Notes * Shelley Feldman LPN - 01/04/2023 9:50 AM EDT Pt verified identity by last name and date. Chief Complaint Patient presents with Weight Management Bypass - 05/06/19 Waist circumference 44 inches Neck circumference 12.5 inches documented in this encounter Plan of Treatment Upcoming Encounters Date Type Department Care Team (Late st Contact Info) Description 01/20/2023 10:30 AM EST Office Visit Pharmacy, [place] [address] [facility] [place] [address] [place], [facility] [address] [facility] [place] [address] 02/08/2023 10:40 AM EST Nutrition Services Nutrition & Weight Management, [facility] [address] [place] [address] Fely Sorenson RDN [address] [place] [address] 04/18/2023 9:00 AM EST Office Visit Cardiology, [facility] [address] [place] [address] Mone Mcgovern CRNP [address] [place] [address] 05/24/2023 9:40 AM EDT Office Visit Family Practice [facility] [address] [place] [address] Teodoro Galaviz DO [address] [place] [address] 06/07/2023 10:00 AM EDT Office Visit Nutrition & Weight Management, [facility] [address] [place] [address] Petra Cordero PA-C [address] [place] [address] 07/03/2023 2:30 PM EDT Imaging Radiology [facility] [address] [facility] [address] [place] [address] 11/20/2023 9:00 AM EDT Office Visit Family Practice [facility] [address] [place] [address] Petra Block CRNP [address] [place] [address] Pending Results Name Type Priority Associated Diagnoses [...] postoperative nonabsorption 01/04/2023 10:49 AM EDT Scheduled Orders Name Type Priority Associated Diagnoses Orde r Schedule CBC WITH WBC DIFFERENTIAL Lab Routine Intestinal postoperative nonabsorption Expected: 01/04/2023 (Approximate), Expires: 01/05/2024 COMPREHENSIVE METABOLIC PANEL Lab Routine Intestinal postoperative nonabsorption Expected: 01/04/2023 (Approximate), Expires: 01/05/2024 FOLIC ACID Lab Routine Intestinal postoperative nonabsorption Expected: 01/04/2023 (Approximate), Expires: 01/05/2024 IRON SCREEN, INCLUDING TIBC Lab Routine Intestinal postoperative nonabsorption Expected: 01/04/2023 (Approximate), Expires: 01/05/2024 FERRITIN Lab Routine Intestinal postoperative nonabsorption Expected: 01/04/2023 (Approximate), Expires: 01/05/2024 VITAMIN A (RETINOL) Lab Routine Intestinal postoperative nonabsorption Expected: 01/04/2023 (Approximate), Expires: 01/05/2024 METHYLMALONIC ACID, SERUM Lab Routine Intestinal postoperative nonabsorption Expected: 01/04/2023 (Approximate), Expires: 01/05/2024 VITAMIN B1 (THIAMINE), BLOOD, LC/MS/MS Lab Routine Intestinal postoperative nonabsorption Expected: 01/04/2023 (Approximate), Expires: 01/05/2024 HEMOGLOBIN A1C Lab Routine Intestinal postoperative nonabsorption Expected: 01/04/2023 (Approximate), Expires: 01/05/2024 PTH Lab Routine Intestinal postoperative nonabsorption Expected: 01/04/2023 (Approximate), Expires: 01/05/2024 25-HYDROXY VITAMIN D Lab Routine Intestinal postoperative nonabsorption Expected: 01/04/2023 (Approximate), Expires: 01/05/2024 COPPER, SERUM OR PLASMA Lab Routine Intestinal postoperative nonabsorption Expected: 01/04/2023 (Approximate), Expires: 01/05/2024 ZINC Lab Routine Intestinal postoperative nonabsorption Expected: 01/04/2023 (Approximate), Expires: 01/05/2024 VITAMIN B12 Lab Routine Intestinal postoperative nonabsorption Expected: 01/04/2023 (Approximate), Expires: 01/05/2024 Scheduled Procedures Name Priority Associated Diagnoses Date/Ti [...] this encounter Visit Diagnoses Diagnosis Intestinal postoperative nonabsorption- Primary Other and unspecified postsurgical nonabsorption History of gastric bypass Bariatric surgery status Type 2 diabetes mellitus with hemoglobin A1c goal of less than 7.0% (HCC) Dyslipidemia Other and unspecified hyperlipidemia Secondary hyperparathyroidism, non-renal (HCC) Secondary hyperparathyroidism, non-renal COLTEN (obstructive sleep apnea) Obstructive sleep apnea (adult) (pediatric) Mild persistent asthma without complication Unspecified asthma Hiatal hernia Diaphragmatic hernia without mention of obstruction or gangrene HTN, goal below 130/80 Unspecified essential hypertension Gastroesophageal reflux disease with esophagitis without hemorrhage Iron deficiency anemia due to chronic blood loss Iron deficiency anemia secondary to blood loss (chronic) documented in this encounter Advance Directives Latest [...] and were consensually agreed upon. Care Teams Adjunct English Instructor Relationship Specialty Start Date End Date Teodoro Galaviz DO [address] [place] [address] PCP - General Family Medicine 12/19/22 documented as of this encounter
--- OUTSIDE RECORDS SUMMARY | 2023-04-01 23:32 | External Medical Summary ---
Author Name Unknown Address Unknown Organization [id number]:[facility] [place] [address] [place] [address] Laboratory Report Ordering Provider Test Date Status ELPIDIO MACHADO 01/04/2023 10:49:04 Final Observation Date Value Abnormality Reference (Units ) Status WBC, Total 01/04/2023 10:49:04 5.96 4.00-10.8 0 (K/uL) Final RBC 01/04/2023 10:49:04 4.06 3.85-5.15 (M/uL) Final Hemoglobin 01/04/2023 10:49:04 11.8 Below low normal 12 .0-15.3 (g/dL) Final HCT 01/04/2023 10:49:04 36.5 36.0-45.2 (%) Final MCV 01/04/2023 10:49:04 89.9 81.5-97.5 (fL) Final MCH 01/04/2023 10:49:04 29.1 27.0-34.0 (pg) Final MCHC 01/04/2023 10:49:04 32.3 32.0-36.0 (g/dL) Final RDW 01/04/2023 10:49:04 12.9 11.5-15.5 (%) Final Platelets 01/04/2023 10:49:04 297 140-400 (K /uL) Final MPV 01/04/2023 10:49:04 9.3 6.6-11.1 ( fL) Final Performing Location [facility] [place] [address] [place] [address]
--- OUTSIDE RECORDS SUMMARY | 2023-04-01 23:32 | External Medical Summary ---
Author Name Unknown Address Unknown Organization : Laboratory Report Ordering Provider Test Date Status ELPIDIO MACHADO 01/04/2023 10:49:04 Final Observation Date Value Abnormality Reference (Units ) Status Vitamin A, level 01/04/2023 10:49:04 51 38- 98 (mcg/dL) Final Vitamin supplementation with in 24 hours prior to
blood draw may affect the accuracy of the results.
This test was developed and its analytical performance
characteristics have been determined by [facility] [place], [place]. It has
not been cleared or approved by the U.S. Food and Drug
Administration. This assay has been validated pursuant
to the CLIA regulations and is used for clinical
purposes.

Test Performed at:
[facility]
[address] [facility]
[place] [address]
Sajan Peterson M.D., Ph.D.,Director of Laboratories Performing Location
--- OUTSIDE RECORDS SUMMARY | 2023-04-01 23:32 | External Medical Summary ---
Author Name Unknown Address Unknown Organization K01:[facility] [place] [address] [place] [address] Laboratory Report Ordering Provider Test Date Status JEANNETTEELPIDIO 01/04/2023 10:49:04 Final Observation Date Value Abnormality Reference (Units ) Status Iron 01/04/2023 10:49:04 69 33-151 (ug /dL) Final Iron-binding capacity 01/04/2023 10:49:04 335 250-425 (ug/dL) Final Transferrin Sat % 01/04/2023 10:49:04 21 15 -55 (%) Final Performing Location [facility] [place] [address] [place] [address]
--- OUTSIDE RECORDS SUMMARY | 2023-04-01 23:32 | External Medical Summary | Summary of Care ---
Author Name Unknown Organization [facility] Address [address] [address] Phone [phone] Care Team Providers Care Surgical Technology Instructor Name Role Phone Teodoro Galaviz Primary Care Provider Reason for Visit * Reason Comments Dosage Adjustment In Person (Anticoag Cl inic) Diabetes Follow-Up Encounter Details Date Type Department Care Team (Late st Contact Info) Description 01/02/2023 3:30 PM EDT Office Visit Pharmacy, [place] [address] [place] [address] [facility] [address] [place] [address] Type 2 diabetes mellitus with hemoglobin A1c goal of less than 7.0% ([facility])* Allergies Active Allergy Reactions Criticality [...] as of this encounter (statuses as of 01/02/2023) Medications Medication Sig Dispensed Refills Start Date End Date Status BD INSULIN SYRINGE ULTRAFINE 30G X 1/2" 0.3 ML MISC As directed 0 12/15/2014 Active Glucose Blood ([employer] CONTOUR NEXT TEST) STRPIndications:DM type 2, not at goal (HCC) Use to test blood sugar 6 times daily dx e11.9 540 Strip 3 01/29/2019 Active CPAP every night at bedtime. 0 Active [place] Carbonate ER 450 MG Oral Tablet Extended [...] Pain, Severe. 30 Tablet 0 06/24/2022 Active Additional Information Patient not taking.Reported on 12/19/2022 Syringe 25G X 1" 3 MLIndications:B12 deficiency [...] Acid) Take by mouth. 0 Activ e Triamcinolone Acetonide 0.5 % External Cream (Aristocort) Apply topically to affected area 2 times a day. To affected area. 80 g 0 10/12/2022 Active Pen [place] 32G X 5 MMIndications:Hyperg lycemia Use as directed. Use with insulin pen 50 Each 0 10/15/2022 Active Nystatin 509768 UNIT/GM External Powder (Nystop)Indications: Tinea cruris Apply [...] hemoglobin A1c goal of less than 7.0% ([facility]) Use as directed. Change every 14 days e11.9 2 Each 11 12/01/2022 Active rOPINIRole HCl 1 MG Oral Tablet (Requip) Take 2 Tablets by mouth at bedtime. 180 Tablet 0 12/09/2022 Active Trulicity 0.75 MG/0.5ML Subcutaneous Solution Pen-injector (Dulaglutide)Indicat ions:Diabetic retinopathy of both eyes with macular edema associated with type 2 diabetes mellitus, unspecified retinopathy severity ([facility]),Type 2 diabetes mellitus with hemoglobin A1c goal of less than 7.0% ([facility]),Type 2 diabetes mellitus with diabetic polyneuropathy, without long-term current use of insulin ([facility]) Inject 0.75 mg under the skin once a week. 3 mL 5 12/19/2022 Active Tresiba FlexTouch 100 UNIT/ML Subcutaneous Solution Pen-injector (Insulin Degludec)Indications :Type 2 diabetes mellitus with hemoglobin A1c goal of less than 7.0% ([facility]) Inject 14 Units under the skin in the morning. Replaces basaglar. 15 mL 3 01/02/2023 Active NovoLOG FlexPen 100 UNIT/ML Subcutaneous Solution Pen-injector (insulin aspart) Inject 8 Units under the skin in the morning and 8 Units at noon and 8 Units in the evening. Inject with meals. 0 Active documented as of this encounter (statuses as of 01/02/2023) Active Problems Problem Noted Date Diagnosed Date [...] . Secondary hyperparathyroidism, non-renal 020 OC[employer]ARCH OTHER*[id number] 01/29/2019 Mild persistent asthma without complication 12/11 [...] 432 06/2008 PSG -- CPAP 10 cwp [facility] documented as of this encounter (statuses as of 01/02/2023) Resolved Problems Problem Noted Date Diagnosed Date [...] knee replacement 7 03/22/2018 Bronchitis, complicated 08/11/2014 0708/2016 Premenopause menorrhagia 05/07/201412/2018 Overview: Menses every 1-2 [...] as of this encounter (statuses as of 01/02/2023) Immunizations Name Administration Dates Next Due Influenza, [...] as of this encounter Progress Notes * Nelly Murphy, [facility] - 01/02/2023 3:28 PM EDT Medication Therapy Disease Management Clinic - Diabetes Management Progress Note Joyce Smith, identified by name and date of , is a 57 year old female being seen for diabetes management/education. Patient presents for return diabetic visit. DIABETES: Current diabetic medications: START Lantus 10 units once daily - stopped about 2 weeks ago START David 3 Trulicity 0.75 mg once weekly - started about 2 weeks ago Novolog up to 15 units twice daily Medication Injection Site: Abdomen Lifestyle: Diet: unchanged Glucose Review/SMBG: sent link for david data to share with clinic Starting day at 250; bumped up above 350 after breakfast Hypoglycemia: Does your blood sugar go below 70 mg/dL? No Hyperglycemia symptoms present: fatigue Recent Labs Units 11/01/22 1240 08/31/22 1046 12/08/21 0840 HEMOGLOBIN A1C - [facility] % 7.2* 6.8* 6.9* Recent Labs Units 11/25/22 1054 11/24/22 0928 11/22/22 1658 ESTIMATED GLOMERULAR FILTRATION RATE - [facility] mL/min >90 >90 54* CREATININE - [facility] mg/dL 0.8 0.8 1.2* HYPERTENSION: Patient on ACEi/ARB: no, due for updated UACR BP Readings from Last 3 Encounters: 01/02/23 122/76 12/19/22 116/66 12/17/22 112/60 Blood pressure at goal: yes HYPERLIPIDEMIA: Patient [...] hemoglobin A1c goal of less than 7.0% ([facility]) E11.9 Therapy Considerations: - Jardiance: yeast infection - Metformin: constipation - Ozempic: GI upset with 2 mg dose; was OK with 1 mg dose, but PCP stopped medication - used to be on insulin pump but addition of ozempic allowed patient to stop insulin pump BG Readings - Blood sugars uncontrolled. Starting the day around 250s; bumping up above 300 after breakfast. No lows. Patient feels crummy. Medications - Reviewed current regimen, patient is not adherent to regimen. Reports aches and painswith insulin glargine- was instructed to stop taking this by her pcp, and was then started on Trulicity. She has been taking novolog which has been controlling her sugars poorly. No side effects from trulicity- OK to continue, advised patient it is not a quick acting medicationand BG impact seen after about 4-6 weeks of therapy. Will try degludec for her insulin- if not covered by insurance, she said she is willing to re-try basaglar. Will reduce novolog to 8 units per meal, with anticipation that trulicity will start to impact sugars soon + addition of basal insulin. Diet, Exercise, Lifestyle - No significant lifestyle changes since last visit. Patient is agreeable to SMBG Freestyle Davdi 3 daily. Patient aware to contact clinic if any hypoglycemia before next visit. MEDICATION CHANGES: yes, see below; preferred pharmacy: [facility] Diabetic Medications: START Tresiba 14 units once daily Trulicity 0.75 mg once weekly Novolog 8 units with meals FOLLOW UP: Return to clinic in 3 weeks 01/20/2023 Nelly Murphy [facility] Clinical Pharmacist - Nurse Assessor Medication Therapy Management Clinic 01/02/2023, 3:28 PM documented in this encounter Plan of Treatment Upcoming Encounters Date Type Department Care Team (Late st Contact Info) Description 01/04/2023 10:00 AM EDT Office Visit Nutrition & Weight Management, [facility] [address] [place] [address] Destiny De Leon PA-C [address] [place] [address] 01/20/2023 10:30 AM EST Office Visit Pharmacy, [address] [place] [address] [facility] [place] [address] 04/18/2023 9:00 AM EST Office Visit Cardiology, [facility] [address] [place] [address] Mone Mcgovern CRNP [address] [place] [address] 05/24/2023 9:40 AM EDT Office Visit Family Practice [facility] [address] [place] [address] Teodoro Galaviz DO [address] [place] [address] 07/03/2023 2:30 PM EDT [facility] [address] [place] [address] 11/20/2023 9:00 AM EDT Office Visit Family Practice [facility] [address] [place] [address] Petra Block CRNP [address] [place] [address] Scheduled Procedures Name Priority Associated Diagnoses Date/Ti [...] 06/28/2023 06/27/2022, 12/05/2020, 12/25/2019, Additional history exists Cologuard 10/20/2023 10/19/2020, [...] and were consensually agreed upon. Care Teams Surgical Technology Instructor Relationship Specialty Start Date End Date Teodoro Galaviz DO [facility] [address] [address] PCP - General Family Medicine 12/19/22 documented as of this encounter
--- OUTSIDE RECORDS SUMMARY | 2023-04-01 23:32 | External Medical Summary ---
Author Name Unknown Address Unknown Organization K01:[facility] [place] [address] [place] [address] Laboratory Report Ordering Provider Test Date Status ELPIDIO MACHADO 01/04/2023 10:49:04 Final Observation Date Value Abnormality Reference (Units ) Status Folic Acid 01/04/2023 10:49:04 >20.0 >4.5 (ng/ mL) Final Performing Location [facility] [place] [address] [place] [address]
--- OUTSIDE RECORDS SUMMARY | 2023-04-01 23:32 | External Medical Summary ---
Author Name Unknown Address Unknown Organization K01:[facility]ORY [facility] - [address] [place] [address] Laboratory Report Ordering Provider Test Date Status ELPIDIO MACHADO 01/04/2023 10:49:04 Final Observation Date Value Abnormality Reference (Units ) Status Ferritin 01/04/2023 10:49:04 279 Above high normal 13 -150 (ng/mL) Final Postmenopausal women have hi gher ferritin levels than pre-menopausal women. The above reference interval is based on pre-menopausal women. Performing Location LABORATORY [facility] - [address] [place] [address]
--- OUTSIDE RECORDS SUMMARY | 2023-04-01 23:32 | External Medical Summary ---
Author Name Unknown Address Unknown Organization K0G:LABORATORY [facility] - [address] [place] [address] Laboratory Report Ordering Provider Test Date Status ELPIDIO MACHADO 01/04/2023 10:49:04 Final Observation Date Value Abnormality Reference (Units ) Status BUN 01/04/2023 10:49:04 18 6-20 (mg/dL) Final Creatinine 01/04/2023 10:49:04 0.8 0.5-1.0 (mg/dL) Final Glomerular filtration rate/1.73 sq M.predicted [Volume Rate/Area] in Serum, Plasma or Blood by Creatinine-based formula (CKD-EPI) 01/04/2023 10:49:04 84 >=60 (mL/min) Final eGFR is calculated based on the CKD-EPI 2020 equation SODIUM 01/04/2023 10:49:04 139 135-146 (m mol/L) Final Potassium 01/04/2023 10:49:04 4.1 3.5-5.1 (m mol/L) Final Cl 01/04/2023 10:49:04 101 98-107 (mm ol/L) Final CO2 01/04/2023 10:49:04 28 22-32 (mmo l/L) Final Anion gap 01/04/2023 10:49:04 10 7-15 (mmol /L) Final Glucose 01/04/2023 10:49:04 292 Above high normal 70 -120 (mg/dL) Final Albumin 01/04/2023 10:49:04 4.1 3.8-5.0 (g /dL) Final AST (Aspartate aminotransferase) 01/04/2023 10:49:04 32 10-35 (U/L) Fin al Alk Phos 01/04/2023 10:49:04 127 35-130 (U/ L) Final Bilirubin, Total 01/04/2023 10:49:04 0.5 <=1 .2 (mg/dL) Final Calcium 01/04/2023 10:49:04 9.7 8.4-10.2 ( mg/dL) Final Protein 01/04/2023 10:49:04 6.6 6.0-8.3 (g /dL) Final ALT (Alanine aminotransferase) 01/04/2023 10:49:04 37 Above high normal 10-35 (U/L) Final Performing Location LABORATORY [facility] 0 - [address] [facility] [address]
--- OUTSIDE RECORDS SUMMARY | 2023-04-01 23:32 | External Medical Summary | Summary of Care ---
Author Name Unknown Organization [facility] Address [address] [facility] [place] [address] Phone [phone] Care Team Providers Care Tube And Manifold Builder Name Role Phone Teodoro Galaviz Primary Care Provider Reason for Visit * Reason Comments Outpatient Testing Encounter Details Date Type Department Care Team (Late st Contact Info) Description 01/04/2023 10:50 AM EDT Laboratory Laboratory, [facility] [place] [phone] [facility] [phone] Intestinal postoperative nonabsorption Allergies Active Allergy Reactions [...] CPAP every night at bedtime. 0 Active [place] Carbonate ER 450 MG Oral Tablet Extended [...] Take by mouth. 0 Activ e Nystatin [id number] UNIT/GM External Powder (Nystop)Indications:T inea cruris Apply [...] hemoglobin A1c goal of less than 7.0% ([facility]) Use as directed. Change every [...] . Secondary hyperparathyroidism, non-renal 020 OCASIO RESEARCH OTHER*[id number] 01/29/2019 Mild persistent asthma without complication 12/11 [...] 432 06/2008 PSG -- CPAP 10 cwp [facility] documented as of this encounter [...] 01/20/2023 10:30 AM EST Office Visit Pharmacy, [place] [address] [place] [address] [facility] [address] [place] [address] 02/08/2023 10:40 AM EST Nutrition Services Nutrition & Weight Management, [facility] [address] [place] [address] Fely Sorenson RDN [address] [place] [address] 04/18/2023 9:00 AM EST Office Visit Cardiology, [facility] [address] [place] [address] Mone Mcgovern CRNP [address] [place] [address] 05/24/2023 9:40 AM EDT Office Visit Family Practice [facility] [address] [place] [address] Teodoro Galaviz, DO [address] [place] [address] 06/07/2023 10:00 AM EDT Office Visit Nutrition & Weight Management, [facility] [address] [place] [address] Petra Cordero PA-C [address] [place] [address] 07/03/2023 2:30 PM EDT Imaging Rad[facility] [address] [place] [address] 11/20/2023 9:00 AM EDT Office Visit Family Practice [facility] [address] [place] [address] Petra Block CRNP [address] [place] [address] Pending Results Name Type Priority Associated Diagnoses [...] and were consensually agreed upon. Care Teams Tube And Manifold Builder Relationship Specialty Start Date End Date Teodoro Galaviz DO [address] [place] [address] PCP - General Family Medicine 12/19/22 documented as of this encounter
--- OUTSIDE RECORDS SUMMARY | 2023-04-01 23:32 | External Medical Summary | Summary of Care ---
Author Name Unknown Organization [facility] Address [address] [facility] [place] [address] Phone [phone] Care Team Providers Care Social Media Community Manager Name Role Phone Teodoro Galaviz Primary Care Provider Reason for Visit * Reason Comments Outpatient Testing Encounter Details Date Type Department Care Team (Late st Contact Info) Description 01/04/2023 10:50 AM EDT Laboratory Laboratory, [facility] 132 [facility] [place] [phone] [facility] 132 [facility] [phone] Intestinal postoperative nonabsorption Allergies Active Allergy Reactions [...] CPAP every night at bedtime. 0 Active [place] Carbonate ER 450 MG Oral Tablet Extended [...] Take by mouth. 0 Activ e Nystatin [id number] UNIT/GM External Powder (Nystop)Indications:T inea cruris Apply [...] A1c goal of less than 7.0% ([facility]) Use as directed. Change every 14 days [...] . Secondary hyperparathyroidism, non-renal 020 OCASIO RESEARCH OTHER*[id number] 01/29/2019 Mild persistent asthma without complication 12/11 [...] 432 06/2008 PSG -- CPAP 10 cwp [facility] documented as of this encounter (statuses [...] 01/20/2023 10:30 AM EST Office Visit Pharmacy, [place] [address] [place] [address] [facility] [address] [place] [address] 02/08/2023 10:40 AM EST Nutrition Services Nutrition & Weight Management, [facility] [address] [place] [address] Fely Sorenson RDN [address] [place] [address] 04/18/2023 9:00 AM EST Office Visit Cardiology, [facility] [address] [place] [address] Mone Mcgovern CRNP [address] [place] [address] 05/24/2023 9:40 AM EDT Office Visit Family Practice [facility] [address] [place] [address] Teodoro Galaviz, DO [address] [place] [address] 06/07/2023 10:00 AM EDT Office Visit Nutrition & Weight Management, [facility] [address] [place] [address] Petra Cordero PA-C [address] [place] [address] 07/03/2023 2:30 PM EDT Imaging Radiology [facility] [address] [place] [address] 11/20/2023 9:00 AM EDT Office Visit Family Practice [facility] [address] [place] [address] Petra Block CRNP [address] [place] [address] Pending Results Name Type Priority Associated Diagnoses [...] and were consensually agreed upon. Care Teams Social Media Community Manager Relationship Specialty Start Date End Date Teodoro Galaviz DO [address] [place] [address] PCP - General Family Medicine 12/19/22 documented as of this encounter
--- OUTSIDE RECORDS SUMMARY | 2023-04-01 23:32 | External Medical Summary | Summary of Care ---
Author Name Unknown Organization [facility] Address [address] [facility] [place] [address] Phone [phone] Care Team Providers Care Freight Coordinator Name Role Phone Teodoro Galaviz Primary Care Provider Reason for Visit * Reason Comments Outpatient Testing Encounter Details Date Type Department Care Team (Late st Contact Info) Description 01/04/2023 10:50 AM EDT Laboratory Laboratory, [facility] 132 [facility] [place] [phone] [facility] 132 [facility] [phone] Intestinal postoperative nonabsorption Allergies Active Allergy Reactions [...] CPAP every night at bedtime. 0 Active [place] Carbonate ER 450 MG Oral Tablet Extended [...] Take by mouth. 0 Activ e Nystatin 430783 UNIT/GM External Powder (Nystop)Indications:T inea cruris Apply [...] hemoglobin A1c goal of less than 7.0% ([facility]) Use as directed. Change every 14 days [...] . Secondary hyperparathyroidism, non-renal 020 OCASIO RESEARCH OTHER*[id number] 01/29/2019 Mild persistent asthma without complication 12/11 [...] 432 06/2008 PSG -- CPAP 10 cwp [facility] documented as of this encounter [...] 01/20/2023 10:30 AM EST Office Visit Pharmacy, [place] [address] [place] [address] [facility] [address] [place] [address] 02/08/2023 10:40 AM EST Nutrition Services Nutrition & Weight Management, [facility] [address] [place] [address] Fely Sorenson RDN [address] [place] [address] 04/18/2023 9:00 AM EST Office Visit Cardiology, [facility] [address] [place] [address] Mone Mcgovern CRNP [address] [place] [address] 05/24/2023 9:40 AM EDT Office Visit Family Practice [facility] [address] [place] [place] [address] Teodoro Galaviz, DO [address] [place] [address] 06/07/2023 10:00 AM EDT Office Visit Nutrition & Weight Management, [facility] [address] [place] [address] Petra Cordero PA-C [address] [place] [address] 07/03/2023 2:30 PM EDT Imaging Radiology [facility] [address] [place] [address] 11/20/2023 9:00 AM EDT Office Visit Family Practice [facility] [address] [place] [address] Petra Block CRNP [address] [place] [address] Pending Results Name Type Priority Associated Diagnoses [...] and were consensually agreed upon. Care Teams Freight Coordinator Relationship Specialty Start Date End Date Teodoro Galaviz DO [address] [place] [address] PCP - General Family Medicine 12/19/22 documented as of this encounter
--- OUTSIDE RECORDS SUMMARY | 2023-04-01 23:32 | External Medical Summary ---
Author Name Unknown Address Unknown Organization K0G:LABORATORY [facility] - [address] [place] [address] Laboratory Report Ordering Provider Test Date Status ELPIDIO MACHADO 01/04/2023 10:49:04 Final Observation Date Value Abnormality Reference (Units ) Status SYNC LEUKOCYTES IN BLOOD BY AUTOMATED COUNT 01/04/2023 10:49:04 5.96 4.00-10.80 (K/uL) Final Segs 01/04/2023 10:49:04 55.7 40.0-75.0 (%) Final Lymphs % 01/04/2023 10:49:04 34.6 18.0-42.0 (%) Final Monos 01/04/2023 10:49:04 6.2 1.0-11.0 (%) Final Eosinophils 01/04/2023 10:49:04 3.0 0.0-6.0 (%) Final Basos 01/04/2023 10:49:04 0.5 0.0-2.0 (%) Final Absolute Segs 01/04/2023 10:49:04 3.32 1.80-7.70 (K/uL) Final Lymphs, absolute 01/04/2023 10:49:04 2.06 1.00-4.80 (K/ul) Final Monos, Abs 01/04/2023 10:49:04 0.37 0.00-1.10 (K/uL) Final Eos, Abs 01/04/2023 10:49:04 0.18 0.00-0.70 (K/uL) Final Basos, Abs 01/04/2023 10:49:04 0.03 0.00-0.20 (K/uL) Final Performing Location [facility] [address] [place] [address]
--- OUTSIDE RECORDS SUMMARY | 2023-04-01 23:32 | External Medical Summary ---
Author Name Unknown Address Unknown Organization : Laboratory Report Ordering Provider Test Date Status ELPIDIO MACHADO 01/04/2023 10:49:04 Final Observation Date Value Abnormality Reference (Units ) Status METHYLMALONIC ACID 01/04/2023 10:49:04 215 8 7-318 (nmol/L) Final This test was developed and its analytical performance
characteristics have been determined by [employer]
[place] It has
not been cleared or approved by the U.S. Food and Drug
Administration. This assay has been validated pursuant
to the CLIA regulations and is used for clinical
purposes.

Test Performed at:
[facility] [place]
[address] [facility] [place] [address]
Sajan Peterson M.D., Ph.D.,Director of Laboratories Performing Location
--- OUTSIDE RECORDS SUMMARY | 2023-04-01 23:32 | External Medical Summary ---
Author Name Unknown Address Unknown Organization : Laboratory Report Ordering Provider Test Date Status ELPIDIO MACHADO 01/04/2023 10:49:04 Final Observation Date Value Abnormality Reference (Units ) Status Copper 01/04/2023 10:49:04 91 70-175 (mc g/dL) Final This test was developed and its analytical performance
characteristics have been determined by [facility] [place]. It has
not been cleared or approved by the U.S. Food and Drug
Administration. This assay has been validated pursuant
to the CLIA regulations and is used for clinical
purposes.

Test Performed at:
[facility]
[address] [facility] [place] [address]
Sajan Peterson M.D., Ph.D.,Director of Laboratories Performing Location
--- OUTSIDE RECORDS SUMMARY | 2023-04-01 23:32 | External Medical Summary ---
Author Name Unknown Address Unknown Organization : Laboratory Report Ordering Provider Test Date Status ELPIDIO MACHADO 01/04/2023 10:49:04 Final Observation Date Value Abnormality Reference (Units ) Status Zinc, level 01/04/2023 10:49:04 65 60-130 ( mcg/dL) Final This test was developed and its analytical performance
characteristics have been determined by [facility] [place], [place]. It has
not been cleared or approved by the U.S. Food and Drug
Administration. This assay has been validated pursuant
to the CLIA regulations and is used for clinical
purposes.

Test Performed at:
[email or web address]
[address] [facility] [place] [address]
Sajan Peterson M.D., Ph.D.,Director of Laboratories Performing Location
--- OUTSIDE RECORDS SUMMARY | 2023-04-01 23:32 | External Medical Summary ---
Author Name Unknown Address Unknown Organization K01:LABORATORY [facility] [place] [address] [place] [place] [address] Laboratory Report Ordering Provider Test Date Status ELPIDIO MACHADO 01/04/2023 10:49:04 Final Observation Date Value Abnormality Reference (Units ) Status Parathyrin.intact [Mass/volume] in Serum or Plasma 01/04/2023 10:49:04 86 Above high normal 15-65 (pg/mL) Final Performing Location LABORATORY [facility] - [address] [place] [address]
--- OUTSIDE RECORDS SUMMARY | 2023-04-01 23:33 | External Medical Summary | Summary of Care ---
Author Name Unknown Organization [facility] Address [address] [facility] [place] [address] Phone [phone] Care Team Providers Care Litigation Partner Name Role Phone Nam Squires DO Primary Care Provider Reason for Visit * Reason Comments Acute 1 week hx of right k nee pain that has radiated to upper right leg and thigh, tx heat, ice, Ibuprofen and Tylenol. She has limited range of motion. There is no swelling or bruising. No injury. Encounter Details Date Type Department Care Team Description 12/17/2022 Office Visit Family Practice [facility] [address] [facility] [place] [address] Libra Sanches MD [address] [facility] [address] Pain of right thigh*; Type 2 diabetes mellitus with diabetic polyneuropathy, without long-term current use of insulin ([facility]); Type 2 diabetes mellitus with hemoglobin A1c goal of less than 7.0% ([facility]); Type 2 diabetes mellitus with diabetic peripheral angiopathy without gangrene, without long-term current use of insulin ([facility]); Generalized osteoarthritis; Mild intermittent asthma with allergic rhinitis without complication; Bipolar I disorder, most recent episode depressed, mild ([facility]) Allergies Active Allergy Reactions Severity Noted Date Comments Alprazolam 02/10/2000 Xanax Hydroxyzine [...] as of this encounter (statuses as of 12/18/2022) Medications Medication Sig Dispensed Refills Start Date End Date Status BD INSULIN SYRINGE ULTRAFINE 30G X 1/2" 0.3 ML MISC As directed 0 12/15/2014 Active Glucose Blood (TAYA CONTOUR NEXT TEST) STRPIndications:DM type 2, not at goal (HCC) Use to test blood sugar 6 times daily dx e11.9 540 Strip 3 01/29/2019 Active CPAP every night at bedtime. 0 Active [place] Carbonate ER 450 MG Oral Tablet Extended [...] affected area. 80 g 0 10/12/2022 Active NovoLOG FlexPen 100 UNIT/ML Subcutaneous Solution Pen-injector (insulin aspart)Indications: Hyperglycemia Inject 3 units with meals if blood sugar greater than 200 while on prednisone 3 mL 0 10/15/2022 Active Pen [place] 32G X 5 MMIndications:Hyper glycemia Use as directed. Use with insulin pen 50 Each 0 10/15/2022 Active Nystatin 427356 UNIT/GM External Powder (Nystop)Indications :Tinea cruris Apply [...] Tablet 11 11/28/2022 Active FreeStyle David 3 SensorIndications:T ype 2 diabetes mellitus with hemoglobin A1c goal of less than 7.0% ([facility]) Use as directed. Change every 14 days e11.9 2 Each 11 12/01/2022 Active Insulin Glargine Solostar 100 UNIT/ML Subcutaneous Solution Pen-injector (Basaglar KwikPen)Indications :Type 2 diabetes mellitus with hemoglobin A1c goal of less than 7.0% ([facility]) Inject 10 Units under the skin daily. 15 mL 3 12/01/2022 Active rOPINIRole HCl 1 MG Oral Tablet (Requip) Take 2 Tablets by mouth at bedtime. 180 Tablet 0 12/09/2022 Active Ketoconazole 2 % External CreamIndications:Ti kris cruris Apply topically to affected area 2 times a day. Apply to groin 30 g 1 07/12/2022 3 Fluconazole 150 MG Oral Tablet (Diflucan)Indicatio ns:Vaginal candidiasis Take 1 tablet by mouth x1 dose for vaginal yeast infection may repeat dose in 1 week if symptoms persist. 2 Tablet 0 12/05/2022 3 Discontinue d(Medicatio n List Clean Up) documented as of this encounter (statuses as of 12/18/2022) Active Problems Problem Noted Date Other chest pain 11/28/2022 Type 2 diabetes mellitus wit h diabetic peripheral angiopathy without gangrene 06/24/2022 Osteoarthritis of both acromioclavicular joints 06/24/2022 DDD (degenerative disc disease), cervica l 06/24/2022 Thoracic degenerative disc disease 06/24 Irritable bowel syndrome with both const ipation and diarrhea 06/24/2022 History of Thuan-en-Y gastric bypass 06/11 Type 2 diabetes mellitus with diabetic p olyneuropathy 04/11/2022 Endometrial intraepithelial neoplasia (E IN) 09/30/2021 Primary osteoarthritis of left foot 07/12 Abdominal pain, generalized 08/02/2021 Hiatal hernia 04/02/2021 Diabetic retinopathy of both eyes associ ated with type 2 diabetes mellitus 11/25/2020 Overview: 03/17/2020 Retinal Scan Interpretation: There is mild retinopathy in both eyes 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 Secondary hyperparathyroidism, non-renal 04/01/2019 [facility] OTHER*[id number] 9 Mild persistent asthma without complicat ion 12/22/2018 Chronic malignant otitis externa of righ t ear 12/22/2018 Complex atypical endometrial hyperplasia 09/16/2016 Overview: Endometrial biopsy 01/01/2019: Benign inactive endometrium with progesterone effect Endometrial Biopsy 09/28/17: Benign inactive endometrium with progesterone effect Endometrial Biopsy 03/09/2017: Endometrium with progestin effect. Endometrial biopsy 12/12/2016: Endometrium with progestin effect. No evidence of atypia or carcinoma Endometrial Biopsy 09/16/2016: Complex atypical hyperplasia Lumbar degenerative disc disease 017 Fibroid uterus 04/07/2014 Overview: Largest = 5 cm Asthma with allergic rhinitis 06/14/2011 Overview: Uses spacer-helps Dyslipidemia 02/26/2009 Overview: Per Lipid Taxonomy. HTN, goal below 130/80 02/03/2009 Overview: Modified per HTN protocol #16. Hypothyroidism 01/28/2005 Overview: Sees Dr. Hong (Endocrine) Gastroesophageal reflux disease with eso phagitis 01/28/2005 Overview: ICD-10 update of inactive term Bipolar I disorder, most recent episode depressed, mild 01/28/2005 Overview: Sees Dr. Dyer Type 2 diabetes mellitus with hemoglobin A1c goal of less than 7.0% 01/28/2005 Overview: Per Diabetes Taxonomy. ICD-10 update of inactive term Iron deficiency anemia Overview: sees Dr. Bueno - on IV iron Generalized osteoarthritis COLTEN (obstructive sleep apnea) Overview: 01/17/14 pt has set at 12cwp CPAP Plus (pt set machine to 18 cwp), F&P FFM 432 06/2008 PSG -- CPAP 10 cwp [facility] documented as of this encounter (statuses as of 12/18/2022) Resolved Problems Problem Noted Date Resolved Date Bipolar disorder 04/11/2022 04/28/2022 BMI 40.0-44.9, adult 06/07/2020 11/25/2020 Gastric bypass status for obesity 05/06/2019 04/28/2022 Type II diabetes mellitus with neurological remberto festations 04/19/2019 11/25/2020 Pre-operative examination 01/29/20192019 Mild intermittent asthma with exacerbation 07/1912/22/2018 TRIPP (dyspnea on exertion) 07/19/20182018 No advance directives 09/28/2017 12/22/2018 Overview: Currently working on ad Chronic painful diabetic neuropathy 01/26/2017 04/28/2022 Body mass index (BMI) of 60.0 to 69.9 in adult 1 02/21/2019 Overview: Per Obesity protocol #1 Morbid obesity due to excess calories 11/23/2016 04/01/2019 Status post total bilateral knee replacement 09/201603/22/2018 Bronchitis, complicated 08/11/2014 09/16/19 17 Premenopause menorrhagia 05/07/2014 019 Overview: Menses every 1-2 months x 10-30 days. Aygestin 5 mg x 5 [address] Fox vasectomy, CBC WNL US - fibroid EMB - excessive hormonal effect Poorly controlled type 2 diabetes mellitus 04/0104/28/2022 Jaclyn-menopause 04/01/2014 03/22/2018 Overview: Pelvic US WNL 09/23. DM type 2, not at goal 01/29/2014 1 Overview: Feb 2014 = 8.6 Acute sinusitis 05/25/2013 11/05/2013 Pain, joint, knee, left 12/13/2012 09/16/19 17 Bunion of great toe of left foot 01/26/2012 09/15/2016 Vitamin D deficiency 11/22/2011 03/22/2018 Overview: Feb 2014 = 17.9 Taking 50,000 twice weekly per Xavi. Plans to recheck June Obesity, morbid (more than 1 00 lbs over ideal weight or BMI > 40) 11/22/2011 09/15/2016 Acute bronchitis, complicated 05/11/2011 Acute bronchitis, complicated 04/29/2010 Thrush 04/29/2010 02/10/2011 Type 2 diabetes mellitus wit h hemoglobin A1c goal of 7.0%-8.0% 01/08/2009 01/29/2014 Overview: Sees Dr. Hong (Endocrine) ICD-10 update of inactive term HYPERTENSION NOS 01/28/2005 02/03/2009 Overview: Modified per HTN protocol #16. PURE HYPERCHOLESTEROLEM 01/28/2005 02/27/20 09 Overview: Per Lipid Taxonomy. Other mental problems 01/28/2005 07/04/2017 Overview: Sees Dr. Dyer Major depressive disorder 01/28/20052017 Overview: Sees Dr. Dyer ICD-10 update of inactive term Female genital symptoms 02/04/2002 04/01/19 15 Overview: ICD-10 update of inactive term Restless legs syndrome 0 Osteoarthritis of knee 8 Overview: sees Dr. Cintron. Needs wheelchair for long distances. 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 Never true 12/24/2021 Within the past 12 months, t he food you bought just didn't last and you didn't have money to get more. Never true 12/24/2021 Sex Assigned at Date Recorded Female 04/19/2019 1:[address] Job Start Date Occupation Industry Not on file Not on file Not on file documented as of this encounter Last Filed Vital Signs Vital Sign Reading Time Taken Comments Blood Pressure 112/60 12/17/2022 2:27 PM EDT Pulse 52 12/17/2022 2:27 PM EDT Temperature 36.3 C (97.4 F) 12/17/2022 2:27 PM ED T Respiratory Rate - - Oxygen Saturation 97% 12/17/2022 2:27 PM EDT Inhaled Oxygen Concentration - - Weight 91.4 kg (201 lb 9.6 oz) 12/17/2022 2:27 P M EDT Height - - Body Mass Index 34.6 10/13/2022 6:11 PM EDT documented in this encounter Functional Status [...] as of this encounter Progress Notes * Libra Sanches MD - 12/17/2022 2:44 PM EDT Images from the original note were not included. History of Present Illness Joyce Smith is a 57 year old female that presents for Acute (1 week hx of right knee pain that has radiated to upper right leg and thigh, tx heat, ice, Ibuprofen and Tylenol. She has limited range of motion. There is no swelling or bruising. No injury. ) 57 year old YOfemale with PMH as listed below presents here for evaluation of leg pain . Duration of illness: 1 week Symptoms present : right knee pain that has radiated to upper right leg and thigh, stared with above knee and now upto groin , sore to touch She has limited range of motion. Symptoms not present: There is no swelling or bruising. No injury. Pain below knee, redness , otherjoints issues. Have same similar thing in past : had knee replacement both knees but knees were doing overall ok Since symptoms started things getting : worse Used anything for this illness: tx heat, ice, Ibuprofen and Tylenol. Other concerns or issues present : no Physical Exam Vitals: 12/17/22 1427 Temp: 36.3 C (97.4 F) Pulse: 52 SpO2: 97% BP: 112/60 Physical Exam Constitutional: General: She is not in acute distress. Appearance: Normal appearance. She is normal weight. She is not ill-appearing. Cardiovascular: Rate and Rhythm: Normal rate and regular rhythm. Heart sounds: No murmur heard. Pulmonary: Effort: Pulmonary effort is normal. No respiratory distress. Breath sounds: Normal breath sounds. Musculoskeletal: General: Tenderness (Rt thigh from groin to knee ,whole but worse medially) present. No swelling ordeformity. Cervical back: No rigidity or tenderness. Right lower leg: No edema. Left lower leg: No edema. Skin: General: Skin is warm. Neurological: Mental Status: She is alert. I have reviewed the following results: Assessment and Plan Pain of right thigh Recommend to get duplex Today though ER due ot not able to get that done via scheduling due to weekend - patient initially agreed but then denied and preferred ot get it done on Mon - [facility] DUPLEX VENOUS LE UNILAT; Future Pt to go to ER if develops severe pain lasting for hours and not relieved by pain medication , SOBand fever Type 2 diabetes mellitus with diabetic polyneuropathy, without long-term current use of insulin ([facility]) Type 2 diabetes mellitus with hemoglobin A1c goal of less than 7.0% ([facility]) Type 2 diabetes mellitus with diabetic peripheral angiopathy without gangrene, without long-term current use of insulin ([facility]) Generalized osteoarthritis Mild intermittent asthma with allergic rhinitis without complication Bipolar I disorder, most recent episode depressed, mild ([facility]) Wrap-Up Time: I spent a total of 20-29 minutes (exact time 26 mins) on the date of service in preparation, delivery, and documentation of the care provided to Joyce Smith excluding any time spent in the performance of separately billed services. documented in this encounter Plan of Treatment Upcoming Encounters Date Type Specialty Care Team Description 12/19/2022 Office Visit Family Medicine Teodoro Galaviz, [address] [place] [address] 12/19/2022 Imaging Radiology 12/29/2022 Office Visit Cardiology Jessica Baer PA-C [address] [place] [phone] 01/04/2023 Office Visit Gastroenterology Destiny De Leon PA-C [address] [place] [address] 01/20/2023 Office Visit Pharmacy [address] [address] 05/24/2023 Office Visit Family [facility] Teodoro Galaviz, [address] [place] [address] 07/03/2023 Imaging Radiology Scheduled Orders Name Type Priority Associated Diagnoses Orde r Schedule VASC DUPLEX VENOUS LE UNILAT Medical Imaging STAT Pain of right thigh Expected: 12/17/2022, Expires: 01/18/2024 Scheduled Procedures Name Priority Associated Diagnoses Date/Ti me COLONOSCOPY FLEXIBLE PROXIMA L DIAGNOSTIC Recall Special screening for malignant neoplasms, colon Health Maintenance Due Date Last Done Comments Hepatitis B (1 of 3 - 3-dose series) 1965 COVID-19 Vaccine (#1) 1965 HIV Screening 02/06/1979 HPV/Co-Test 02/06/1994 Sigmoidoscopy 02/06/2009 Zoster Vaccines (1 [...] on patient's age to complete this topic MENINGOCOCCAL (MENACTRA/MENVEO) Aged Out No longer eligible based on patient's age to complete this topic documented as of this encounter Medical Devices Not on filedocumented as of this encounter Visit Diagnoses Diagnosis Pain of right thigh- Primary Pain in limb Type 2 diabetes mellitus with diabetic polyneuropathy, without long-term current use of insulin (HCC) Type 2 diabetes mellitus with hemoglobin A1c goal of less than 7.0% (HCC) Type 2 diabetes mellitus with diabetic peripheral angiopathy without gangrene, without long-term current use of insulin (HCC) Generalized osteoarthritis Generalized osteoarthrosis, unspecified site Mild intermittent asthma with allergic rhinitis without complication Bipolar I disorder, most recent episode depressed, mild (HCC) Bipolar I disorder, most recent episode (or current) depressed, mild documented in this encounter Advance Directives Latest [...] and were consensually agreed upon. Care Teams Litigation Partner Relationship Specialty Start Date End Date Nam Squires DO [address] [place] [address] PCP - General Family Medicine 12/02/19 documented as of this encounter
--- OUTSIDE RECORDS SUMMARY | 2023-04-01 23:33 | External Medical Summary | Summary of Care ---
Author Name Unknown Organization [facility] Address [address] [facility] [place] [address] Phone [phone] Care Team Providers Care Pediatric Dental Assistant Name Role Phone Saul Galavizr Savita Primary Care Provider Reason for Visit * Reason Onset Date Comments Appointment 12/14/2022 Encounter Details Date Type Department Care Team Description 12/14/2022 Telephone Gastroenterology, [facility] [address] [facility] [place] [address] Specified, Zz No Resource [address] [place] [address] Appointment Allergies Active Allergy Reactions Severity Noted Date [...] as of this encounter (statuses as of 12/30/2022) Medications Medication Sig Dispensed Refills Start Date End Date Status BD INSULIN SYRINGE ULTRAFINE 30G X 1/2" 0.3 ML MISC As directed 0 12/15/2014 Active Glucose Blood (Dr. TATTOFF CONTOUR NEXT TEST) STRPIndications:DM type 2, not at goal (HCC) Use to test blood sugar 6 times daily dx e11.9 540 Strip 3 01/29/2019 Active CPAP every night at bedtime. 0 Active [place] Carbonate ER 450 MG Oral Tablet Extended Release (Lithobid ER) Take 1 Tablet by mouth in the morning. In the morning.. 0 03/28/2022 Active Meclizine HCl 25 MG Oral Tablet (Antivert)Indication s:Vertigo Take 1 Tablet by mouth 3 times a day as needed for Dizziness. 30 Tablet 1 06/24/2022 Active Additional Information Patient not taking.Reported on 12/19/2022 traMADol HCl 50 MG Oral Tablet (Ultram)Indications: [...] area. 80 g 0 10/12/2022 Active Pen [place] 32G X 5 MMIndications:Hyperg lycemia Use as directed. Use with insulin pen 50 Each 0 10/15/2022 Active Nystatin 143147 UNIT/GM External Powder (Nystop)Indications: Tinea cruris Apply [...] Additional Information Patient not taking.Reported on 12/19/2022 FreeStyle David 3 SensorIndications:Ty pe 2 diabetes mellitus with hemoglobin A1c goal of less than 7.0% ([facility]) Use as directed. Change every 14 days e11.9 2 Each 11 12/01/2022 Active rOPINIRole HCl 1 MG Oral Tablet (Requip) Take 2 Tablets by mouth at bedtime. 180 Tablet 0 12/09/2022 Active documented as of this encounter (statuses as of 12/30/2022) Active Problems Problem Noted Date Other chest [...] . Secondary hyperparathyroidism, non-renal 04/01/2019 [facility] OTHER*[id number] 9 Mild persistent asthma without complicat ion [...] 432 06/2008 PSG -- CPAP 10 cwp [facility] documented as of this encounter (statuses as of 12/30/2022) Resolved Problems Problem Noted Date Resolved Date [...] Jaclyn-menopause 04/01/2014 03/22/2018 Overview: Pelvic US WNL 7/14. DM type 2, not at goal 01/29/2014 Overview: Feb 2014 = 8.6 Acute sinusitis [...] as of this encounter (statuses as of 12/30/2022) Immunizations Name Administration Dates Next Due Influenza, [...] Miscellaneous Notes * Telephone Encounter - Radha Al RN - 12/30/2022 11:57 AM EDT Called and relayed to patient. Reports she will call back when she is ready to schedule. * Telephone Encounter - BETTY Love - 12/30/2022 9:40 AM EDT There is no urgency to the testing, she can get it when it is convenient for her to go to [facility] or [place] These are typically done every 1-2 years BETTY King 12/30/2022 9:44 AM * Telephone Encounter - Ary King LPN - 12/29/2022 3:16 PM EDT Called to schedule patient a fibroscan. She was on the understanding that the fibroscan was not dueuntil next year. Please advise. Jake Mcallister * Telephone Encounter - Kiara Patino - 12/14/2022 2:35 PM EDT Pt's check out notes stated that pt needed scheduled for a fibroscan in [place]. I tried calling at check out but I was told that they would print the order and call to schedule Please reach out to patient to schedule.. Thank you! documented in this encounter Plan of Treatment Upcoming Encounters Date Type Specialty Care Team Description 01/02/2023 Office Visit Cardiology Mone Mcgovern CRNP [address] [place] [address] 01/04/2023 Office Visit Gastroenterology Destiny De Leon PA-C [address] [place] [address] 01/20/2023 Office [address] [place] [address] 05/24/2023 Office Visit Family Medicine Teodoro Galaviz DO [address] [place] [address] 07/03/2023 Imaging Radiology 11/20/2023 Office Visit Family Medicine Petra Block CRNP [address] [place] [address] Scheduled Procedures Name Priority Associated Diagnoses Date/Ti [...] and were consensually agreed upon. Care Teams Pediatric Dental Assistant Relationship Specialty Start Date End Date Toedoro Galaviz DO [address] [place] [address] PCP - General Family Medicine 12/19/22 documented as of this encounter
--- OUTSIDE RECORDS SUMMARY | 2023-04-01 23:33 | External Medical Summary | Summary of Care ---
Author Name Unknown Organization [facility] Address [address] [facility] [place] [address] Phone [phone] Care Team Providers Care Community Arts Worker Name Role Phone Nam Squires DO Primary Care Provider [phone] Reason for Visit * Reason Comments Acute Pt being seen for Rt shoulder and arm pain, and pain in her hand from the heart cath that she had done and pain is at 9 1/2 at worst and also now going into her neck. Encounter Details Date Type Department Care Team Description 12/09/2022 [address] [facility] [place] [address] [place] [address] Georgina Bedolla DO [address] [place] [address] Pain of right upper extremity*; Acute pain of right shoulder Allergies Active Allergy Reactions Severity Noted Date [...] as of this encounter (statuses as of 12/09/2022) Medications Medication Sig Dispensed Refills Start Date End Date Status BD INSULIN SYRINGE ULTRAFINE 30G X 1/2" 0.3 ML MISC As directed 0 12/15/2014 Active Glucose Blood (TAYA CONTOUR NEXT TEST) STRPIndications:DM type 2, not at goal (HCC) Use to test blood sugar 6 times daily dx e11.9 540 Strip 3 01/29/2019 Active CPAP every night at bedtime. 0 Active [place] Carbonate ER 450 MG Oral Tablet Extended [...] FlexPen 100 UNIT/ML Subcutaneous Solution Pen-injector (insulin aspart)Indications:Hy perglycemia Inject 3 units with meals if blood sugar greater than 200 while on prednisone 3 mL 0 10/15/2022 Active Pen [place] 32G X 5 MMIndications:Hypergl ycemia Use as directed. Use with insulin pen 50 Each 0 10/15/2022 Active Nystatin 560437 UNIT/GM External Powder (Nystop)Indications:T inea cruris Apply [...] as needed for Rhinitis. 0 11/28/2022 Active rOPINIRole HCl 0.5 MG Oral Tablet (Requip)Indications:R LS (restless legs syndrome) Take 4 Tablets by mouth every night at bedtime. 90 Tablet 3 11/28/2022 Active Rosuvastatin Calcium 20 MG Oral [...] goal of less than 7.0% ([facility]) Use as directed. Change every 14 days e11.9 2 Each 11 12/01/2022 Active Insulin Glargine Solostar 100 UNIT/ML Subcutaneous Solution Pen-injector (Basaglar KwPaul)Indications:T ype 2 diabetes mellitus with hemoglobin A1c goal of less than 7.0% ([facility]) Inject 10 Units under the skin daily. 15 mL 3 12/01/2022 Active Fluconazole 150 MG Oral Tablet (Diflucan)Indications :Vaginal candidiasis Take 1 tablet by mouth x1 dose for vaginal yeast infection may repeat dose in 1 week if symptoms persist. 2 Tablet 0 12/05/2022 Active documented as of this encounter (statuses as of 12/09/2022) Active Problems Problem Noted Date Other chest pain 11/28/2022 Type 2 diabetes mellitus wit h diabetic peripheral angiopathy without gangrene 06/24/2022 Osteoarthritis of both acromioclavicular joints 06/24/2022 DDD (degenerative disc disease), cervica l 06/24/2022 Thoracic degenerative disc disease 06/24 Irritable bowel syndrome with both const ipation and diarrhea 06/24/2022 History of Gucci-en-Y gastric bypass 06/11 Type 2 diabetes mellitus [...] . Secondary hyperparathyroidism, non-renal 04/01/2019 [facility] OTHER*[id number] 9 Mild persistent asthma without complicat ion [...] as of this encounter (statuses as of 12/09/2022) Resolved Problems Problem Noted Date Resolved Date [...] = 17.9 Taking 50,000 twice weekly per Kaandrés. Plans to recheck June Obesity, morbid (more [...] as of this encounter (statuses as of 12/09/2022) Immunizations Name Administration Dates Next Due Influenza, [...] Sign Reading Time Taken Comments Blood Pressure 138/70 12/09/2022 12:33 PM EDT Pulse 55 12/09/2022 12:33 PM EDT Temperature 36.6 C (97.9 F) 12/09/2022 12:33 PM E DT Respiratory Rate 16 12/09/2022 12:33 PM EDT Oxygen Saturation - - Inhaled Oxygen Concentration - - Weight 88.9 kg (196 lb) 12/09/2022 12:33 PM EDT Height - - Body Mass Index 33.64 10/13/2022 6:11 PM EDT documented in this [...] as of this encounter Progress Notes * Georgina Bedolla, - 12/09/2022 12:32 PM EDT Subjective: Joyce Smith is a 57 year old female. Chief Complaint Patient presents with Acute Pt being seen for Rt shoulder and arm pain, and pain in her hand from the heart cath that she had done and pain is at 9 1/2 at worst and also now going into her neck. There are no exam notes on file for this visit. HPI: This is a 57 year old female with PMHx as below presents with acute illness as noted above Does have arthritis - this feels different Vss No trauma Sleeps on other side Health Maintenance Due Topic Date Due Hepatitis B (1 of 3 - 3-dose series) Never done COVID-19 Vaccine (1) Never done HIV Screening Never done Zoster Vaccines (1 of 2) Never done Pneumococcal Vaccine: Pediatrics (0 to 5 Years) and At-Risk Patients (6 to 64 Years) (2 - PCV) 04/13/2018 Diabetic Foot Exam 09/02/2022 Depression Screening 09/30/2022 Influenza Vaccine (FLU shot) (1) 11/11/2022 Albumin/Creatinine Ratio 12/08/2022 Cervical Cancer Screening 01/19/2023 Patient Active Problem List Diagnosis Code Hypothyroidism E03.9 Gastroesophageal reflux disease with esophagitis K21.00 Bipolar I disorder, most recent episode depressed, mild ([facility]) F31.31 Type 2 diabetes mellitus with hemoglobin A1c goal of less than 7.0% ([facility]) E11.9 HTN, goal below 130/80 I10 Dyslipidemia E78.5 Iron deficiency anemia D50.9 Generalized osteoarthritis M15.9 COLTEN (obstructive sleep apnea) G47.33 Asthma with allergic rhinitis J45.909 Fibroid uterus D25.9 Lumbar degenerative disc disease M51.36 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 Mild persistent asthma without complication J45.30 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 H60.21 [facility] [employer] OTHER*[id number] Secondary hyperparathyroidism, non-renal ([facility]) E21.1 Hypocalciuria E83.59 History of bariatric surgery Z98.84 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 RLS (restless legs syndrome) G25.81 Peripheral neuropathy due to metabolic disorder ([facility]) E88.9, G63 Diabetic retinopathy of both eyes associated with type 2 diabetes mellitus ([facility]) E11.319 Hiatal hernia K44.9 Primary osteoarthritis of left foot M19.072 Abdominal pain, generalized R10.84 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 ([facility]) E11.42 Type 2 diabetes mellitus with diabetic peripheral angiopathy without gangrene ([facility]) E11.51 Osteoarthritis of both acromioclavicular joints M19.011, M19.012 DDD (degenerative disc disease), cervical M50.30 Thoracic degenerative disc disease M51.34 Irritable bowel syndrome with both constipation and diarrhea K58.2 History of Gucci-en-Y gastric bypass Z98.84 Other chest pain R07.89 Current Outpatient Medications Medication Sig Dispense Refill BD INSULIN SYRINGE ULTRAFINE 30G X 1/2" 0.3 ML MISC As directed 0 Glucose Blood (TAYA CONTOUR NEXT TEST) STRP Use to test blood sugar 6 times daily dx e11.9 540 Strip 3 CPAP every night at bedtime. [place] Carbonate ER 450 MG Oral Tablet Extended Release (Lithobid ER) Take 1 Tablet by mouth in the morning. In the morning.. traMADol HCl 50 MG Oral Tablet (Ultram) Take 1 Tablet by mouth every 6 hours as needed for Pain, Severe. 30 Tablet 0 Syringe 25G X 1" 3 ML Use as directed for B12 injection once monthly 50 Each 0 Triamcinolone Acetonide 0.1 % External Cream (Aristocort) Apply topically to affected area 2 times a day. To affected area arm and leg. 60 g 5 Vitamin C Adult Gummies 125 MG Oral Tablet Chewable (Ascorbic Acid) Take by mouth. Triamcinolone Acetonide 0.5 % External Cream (Aristocort) Apply topically to affected area 2 times a day. To affected area. 80 g 0 NovoLOG FlexPen 100 UNIT/ML Subcutaneous Solution Pen-injector (insulin aspart) Inject 3 units withmeals if blood sugar greater than 200 while on prednisone 3 mL 0 Pen [place] 32G X 5 MM Use as directed. Use with insulin pen 50 Each 0 Nystatin 471645 UNIT/GM External Powder (Nystop) Apply topically to [...] by mouth daily as needed for Rhinitis. rOPINIRole HCl 0.5 MG Oral Tablet (Requip) Take 4 Tablets by mouth every night at bedtime. 90 Tablet 3 Rosuvastatin Calcium 20 MG Oral Tablet (Crestor) Take 1 Tablet by mouth in the morning. 90 Tablet 3 Nitroglycerin 0.4 MG Sublingual Tablet Sublingual (Nitrostat) Place 1 Tablet under the tongue every5 minutes as needed for Pain, Chest. up to 3 doses in 15 minutes 25 Tablet 11 FreeStyle David 3 Sensor Use as directed. Change every 14 days e11.9 2 Each 11 Insulin Glargine Solostar 100 UNIT/ML Subcutaneous Solution Pen-injector (Basaglar KwikPen) Inject 10 Units under the skin daily. 15 mL 3 Fluconazole 150 MG Oral Tablet (Diflucan) Take 1 tablet by mouth x1 dose for vaginal yeast infection may repeat dose in 1 week if symptoms persist. 2 Tablet 0 Meclizine HCl 25 MG Oral Tablet (Antivert) Take 1 Tablet by mouth 3 times a day as needed for Dizziness. 30 Tablet 1 Cyanocobalamin 1000 MCG/ML Injection Solution (Cyanocobalamin) INJECT DIRECTED 1,000 MCG EVERY 30 DAYS . 3 mL 3 Diclofenac Sodium 1 % External Gel Apply topically to affected area. Apply to effected areas No current facility-administered medications for this visit. 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 Dyer Bipolar I disorder, most recent episode depressed, mild ([facility]) 01/28/[address] Dyer BMI 40.0-44.9, adult ([facility]) 06/07/2020 Bunion of great toe of left foot 01/26/2012 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 12/22/2018 Complex atypical endometrial hyperplasia 09/16/2016 Endometrial biopsy 01/01/2019: Benign inactive endometrium with progesterone effect Endometrial Biopsy 09/28/17: Benign inactive endometrium with progesterone effect Endometrial Biopsy 03/09/2017: Endometrium with progestin effect. Endometrial biopsy 12/12/2016: Endometrium with progestin effect. No evidence of atypia or carcinoma Endometrial Biopsy 09/16/2016: Complex atypical hyperplasia Complex endometrial hyperplasia with atypia 09/16/2016 DM type 2, goal A1c below [address] Lucero DM type 2, not at goal ([facility]) 01/29/2014 = 8.6 Dyslipidemia 02/26/2009 Per Lipid Taxonomy. Dyslipidemia, goal LDL below 100 Fibroid uterus 04/07/2014 Largest = 5 cm Gastric bypass status for obesity 05/06/2019 Gastroesophageal reflux disease with esophagitis 01/28/2005 ICD-10 update of inactive term Generalized osteoarthritis History of bariatric surgery 04/27/2019 HTN, goal below 130/80 Hypocalciuria 04/02/[address] Lucero Iron deficiency anemia sees Dr. Bueno - on IV iron Mild persistent asthma without complication 12/22/2018 OBESITY, BMI 40 AND OVER 08/25/2009 Osteoarthritis of knee sees Dr. Cintron Premenopause menorrhagia 05/07/2014 Menses every 1-2 months x 10-30 days. Aygestin 5 mg x 5 days x [address] Fox vasectomy, CBC WNL US - fibroid EMB - excessive hormonal effect Restless legs syndrome Secondary hyperparathyroidism, non-renal (HCC) 04/01/2019 Sleep apnea on CPAP Sleep apnea, obstructive Status post total bilateral knee replacement 07/17/2016 Type 2 diabetes mellitus with hemoglobin A1c goal of less than 7.0% (HCC) 01/28/2005 Per Diabetes Taxonomy. ICD-10 update of inactive term Type II diabetes mellitus with neurological manifestations (HCC) 04/19/2019 Vitamin D deficiency 11/22/2011 = 17.9 Taking 50,000 twice weekly per Xavi. Plans to recheck June Past Surgical History: Procedure Laterality Date ARTHROPLASTY KNEE TOTAL Bilateral 11/26/2010 Dr Sarabia-right , left and right knee replacement COLONOSCOPY, DIAGNOSTIC (RECTUM) 2009 COLONOSCOPY, DIAGNOSTIC (RECTUM) 11/10/2020 diverticulosis, repeat 10 yrs / COLONOSCOPY FLEXIBLE PROXIMAL DIAGNOSTIC performed by Chun Bravo MD at ENDOSCOPY [facility] COLONOSCOPY, DIAGNOSTIC (RECTUM) 10/06/2022 COLONOSCOPY FLEXIBLE PROXIMAL DIAGNOSTIC performed by Chun Bravo MD at ENDOSCOPY [facility] DILATION AND CURETTAGE (D&C) N/A 09/16/2016 DILATION AND CURETTAGE performed by Moses Taylor DO at OR [facility] EGD, FLEXIBLE, DIAGNOSTIC 2009 EGD, FLEXIBLE, DIAGNOSTIC 10/25/2017 benign fundic gland polyp, acid reflux/[facility] EGD, FLEXIBLE, DIAGNOSTIC N/A 04/11/2019 ESOPHAGOGASTRODUODENOSCOPY (EGD), FLEXIBLE, TRANSORAL, DIAGNOSTIC performed by Escobar Leon MDa OR [facility] EGD, FLEXIBLE, DIAGNOSTIC N/A 07/20/2020 ESOPHAGOGASTRODUODENOSCOPY (EGD), FLEXIBLE, TRANSORAL, DIAGNOSTIC performed by Brendon Berg DO at ENDOSCOPY [facility] EGD, FLEXIBLE, DIAGNOSTIC N/A 02/03/2021 ESOPHAGOGASTRODUODENOSCOPY (EGD), FLEXIBLE, TRANSORAL, DIAGNOSTIC performed by Escobar Leon MDa OR [facility] EGD, FLEXIBLE, DIAGNOSTIC N/A 03/26/2021 ESOPHAGOGASTRODUODENOSCOPY (EGD), FLEXIBLE, TRANSORAL, DIAGNOSTIC performed by Escobar Leon MDa OR [facility] EGD, FLEXIBLE, DIAGNOSTIC 06/09/2021 normal bx / ESOPHAGOGASTRODUODENOSCOPY (EGD), FLEXIBLE, TRANSORAL, DIAGNOSTIC performed by Carlotta Duke MD at ENDOSCOPY [facility] EGD, FLEXIBLE, DIAGNOSTIC 11/06/2021 Gastroparesis / INPT [facility] EGD, FLEXIBLE, DIAGNOSTIC 10/06/2022 ESOPHAGOGASTRODUODENOSCOPY (EGD), FLEXIBLE, TRANSORAL, DIAGNOSTIC performed by Chun Bravo MD at ENDOSCOPY [facility] EGD, W/ENDOSCOPIC US N/A 06/12/2018 ESOPHAGOGASTRODUODENOSCOPY (EGD), FLEXIBLE, TRANSORAL, ENDOSCOPIC ULTRASOUND performed by Hema Pino DO at ENDOSCOPY [facility] ESOPH FUNCT/REFLUX TEST,MUCOSAL PH 07/20/2020 GASTRO REFLUX TEST WITH MUCOSAL TELEMETRY PH ELECTRODE performed by Brendon Berg DO at [facility] INSERT INTRAUTERINE DEVICE (IUD) N/A 09/16/2016 INSERTION OF INTRAUTERINE DEVICE performed by Moses Taylor DO at OR [facility] KNEE ARTHROSCOPY/SURGERY meniscus tear LAPAROSCOPE PROCEDURE, LIVER N/A 04/11/2019 UNLISTED LAPAROSCOPIC PROCEDURE LIVER performed by Escobar Leon MD at [facility] LAPAROSCOPIC GASTRIC BYPASS/GUCCI-EN-Y N/A 04/11/2019 LAPAROSCOPIC GASTRIC RESTRICTIVE BYPASS GUCCI EN Y performed by Escobar Leon MD at [facility] LAPAROSCOPY; CHOLECYSTECTOMY N/A 04/11/2019 LAPAROSCOPIC CHOLECYSTECTOMY performed by Escobar Leon MD at [facility] LAPAROSCOPY; CHOLECYSTECTOMY N/A 03/26/2021 LAPAROSCOPIC CHOLECYSTECTOMY performed by Escobar Leon MD at [facility] PARAESOPHAGEAL HERNIA REPAIR, LAP W/ MESH N/A 03/26/2021 LAPAROSCOPIC PARAESOPHAGEAL HERNIA REPAIR W/MESH performed by Escobar Leon MD at [facility] PARAESOPHAGEAL HERNIA REPAIR, LAP W/O MESH N/A 03/26/2021 LAPAROSCOPIC PARAESOPHAGEAL HERNIA REPAIR WO/ MESH performed by Escobar Leon MD at [facility] TRANSECTION VAGUS NRV,TRUNCAL Bilateral 03/26/2021 LAPAROSCOPIC TRANSECTION VAGUS NERVES TRUNCAL performed by Escobar Leon MD at OR [facility] Review of patient's allergies indicates: Allergen Reactions [...] comment) Strange feeling in head per patient Family History Problem Relation Age of Onset Ovarian cancer Grandmother (Maternal) Diabetes Mother Heart Disorder Mother CHF; smoker Hypertension Mother Cancer Mother bladder Ca Heart Disorder Father Diabetes Father Esophageal cancer Father Esophageal cancer Brother SMOKER Heart Disorder Brother 3 heart attacks Diabetes Niece type 1 COPD Brother SMOKER Family Status Relation Status MGMA (Not Specified) Mo Fa Bro Alive Bro Alive Niece (Not Specified) Sis Alive Bro Selena Alive Son Alive Social History Socioeconomic History Marital status: Spouse name: Not on file Number of children: 2 Years of education: Not on file Highest education level: Not on file Occupational History 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 Tobacco Use Smoking status: Never Smokeless tobacco: Never Vaping Use Vaping Use: Never used Substance and Sexual Activity Alcohol use: No Drug use: No Sexual activity: Yes Partners: Male control/protection: Surgical Comment: vasectomy Other Topics Concern Service Not Asked Blood Transfusions Not Asked Caffeine Concern Not Asked Occupational Exposure Not Asked Hobby Hazards Not Asked Sleep Concern Not Asked Stress Concern Not Asked Weight Concern Not Asked Special Diet Not Asked Back Care Not Asked Exercise Yes Comment: walks 2-3x/wk Bike Helmet Not Asked Seat Belt Not Asked Self-Exams Yes Comment: breast Social History Narrative Not on file Social Determinants of Health Financial Resource Strain: Not on file Food Insecurity: No Food Insecurity Worried About Running Out of Food in the Last Year: Never true Ran Out of Food in the Last Year: Never true Transportation Needs: Not on file Physical Activity: Not on file Stress: Not on file Social Connections: Not on file Intimate Partner Violence: Not on file Housing Stability: Not on file Review of Systems: As per HPI all other ROS negative. Wt Readings from Last 3 Encounters: 12/09/22 88.9 kg (196 lb) 12/07/22 89 kg (196 lb 3.2 oz) 11/25/22 89.8 kg (198 lb) Results for orders placed or performed during the hospital encounter of 11/28/22 CARDIAC CATHETERIZATION REPORT Result Value Ref Range DATE OF PROCEDURE 11/28/2022 DIAGNOSTIC Angelica Sharp MD CONCLUSIONS * Coronary disease - hemodynamically insignificant * Mid LAD with 50% stenosis; FFR performed- 0.81. PCI deferred. Recommend medication optimization at this time. * Prox-mid LCx with 30% stenosis. * Mid RCA with 40% stenosis. PROCEDURES Coronary Angiography Fractional Flow [place] (FFR) TOTAL CONTRAST VOLUME 65 ml TOTAL RADIATION 0.20 Gy COMPLICATIONS No complication None *Note: Due to a large number of results and/or encounters for the requested time period, some results have not been displayed. A complete set of results can be found in Results Review. OBJECTIVE: Physical Exam: BP 138/70 | Pulse 55 | Temp 36.6 C (97.9 F) (Tympanic) | Resp 16 | Wt 88.9 kg (196 lb) | BMI 33.64 kg/m | BSA 2 m General: alert, healthy, and no distress Head: Normocephalic, No masses, lesions, tenderness or abnormalities Neck: supple, no adenopathy, no bruits Heart: regular rate & rhythm, no gallops, and pos BENJI Lungs: chest symmetric with normal AP diameter, no chest deformities noted, lungs clear to auscultation Back: back symmetric, no curvature, no costovertebral angle tenderness, range of motion is normal, pos TTP upper back on R side/shoulder blade. Extremities: R wrist/hand with minimal swelling, no erythema Pain of right upper extremity (Primary) - VASC DUPLEX VENOUS UE UNILAT - XR SHOULDER, 2 OR MORE VIEWS Acute pain of right shoulder - XR SHOULDER, 2 OR MORE VIEWS RICE- check xray and US today Georgina Bedolla DO documented in this encounter Plan of Treatment Upcoming Encounters Date Type Specialty Care Team Description 12/15/2022 Office Visit Sleep Disorders Shaniqua Spann, DO [address] [place] [address] 12/19/2022 Office Visit Family Teodoro Painter, DO [address] [place] [address] 12/29/2022 Office Visit Cardiology Jessica Baer PA-C [address] [place] [phone] 01/04/2023 Office Visit Gastroenterology Destiny De Leon PA-C [address] [place] [address] 01/20/2023 Office Visit Pharmacy [address] [address] 05/24/2023 Office Visit [facility] Teodoro Galaviz, DO [address] [place] [address] 07/03/2023 Imaging Radiology Pending Results Name Type Priority Associated Diagnoses Date /Time XR SHOULDER, 2 OR MORE VIEWS Medical Imaging Routine Pain of right upper extremity Acute pain of right shoulder 12/09/2022 1:01 PM EDT Scheduled Orders Name Type Priority Associated Diagnoses Orde r Schedule VASC DUPLEX VENOUS UE UNILAT Medical Imaging STAT Pain of right upper extremity Ordered: 12/09/2022 Scheduled Procedures Name Priority Associated Diagnoses Date/Ti [...] 09/02/2021, 1 03/19/2018, 04/06/2018, Additional history exists Depression Screening 09/30/2022 09/30/2021 Influenza Vaccine (FLU shot) (#1) 2022 12/02/2019, [...] 11/26/2023 11/25/2022, 11/11, 11/22/2022, Additional history exists Lipid Panel 11/25/2027 11/24/2022, 08/12, 04/03/2019, Additional history exists IUD 7-Year 08/12/2028 08/12/2021 DTaP,Tdap,and Td Vaccines (3 - Td or Tdap) 09/03/2031 09/02/2021, 11/18/2010 Colonoscopy 10/06/2032 10/06/2022, 0709/2022, 11/10/2020, Additional history exists Colorectal Cancer Screening 10/06/2032 GARDASIL-HPV IMMUNIZATION SERIES Aged Out No longer eligible based on patient's age to complete this topic MENINGOCOCCAL (MENACTRA/MENVEO) Aged Out No longer eligible based on patient's age to complete this topic documented as of this encounter Medical Devices Not on filedocumented as of this encounter Visit Diagnoses Diagnosis Pain of right upper extremity- Primary Acute pain of right shoulder documented in this encounter Advance Directives Latest [...] and were consensually agreed upon. Care Teams Community Arts Worker Relationship Specialty Start Date End Date Nam Squires DO [address] [place] [address] PCP - General Family Medicine 12/02/19 documented as of this encounter
--- OUTSIDE RECORDS SUMMARY | 2023-04-01 23:33 | External Medical Summary | Summary of Care ---
Author Name Unknown Organization [facility] Address [address] [facility] [place] [address] Phone [phone] Care Team Providers Care Cut Off Operator Scorer Name Role Phone Teodoro Galaviz DO Primary Care Provider Reason for Visit * Reason Comments NEW PATIENT Pt here for new pt/g et est, previous [facility] pt. Encounter Details Date Type Department Care Team Description 12/19/2022 Office Visit Family Practice [facility] [address] [place] [address] Teodoro Galaviz DO [address] [place] [address] Diabetic retinopathy of both eyes with macular edema associated with type 2 diabetes mellitus, unspecified retinopathy severity (HCC)*; Secondary hyperparathyroidism, non-renal (HCC); Type 2 diabetes mellitus with hemoglobin A1c goal of less than 7.0% (HCC); Dyslipidemia; Type 2 diabetes mellitus with diabetic polyneuropathy, without long-term current use of insulin (HCC); Type 2 diabetes mellitus with diabetic peripheral angiopathy without gangrene, without long-term current use of insulin (HCC); Mild persistent asthma without complication; COLTEN (obstructive sleep apnea); Mild intermittent asthma with allergic rhinitis without complication; HTN, goal below 130/80; Gastroesophageal reflux disease with esophagitis without hemorrhage; Generalized osteoarthritis; Lumbar degenerative disc disease; Chronic pain of both shoulders; Left knee pain, unspecified chronicity; Chronic pain of right knee; Iron deficiency anemia due to chronic blood loss Allergies Active Allergy Reactions Severity Noted Date [...] as of this encounter (statuses as of 12/19/2022) Medications Medication Sig Dispensed Refills Start Date End Date Status BD INSULIN SYRINGE ULTRAFINE 30G X 1/2" 0.3 ML MISC As directed 0 5 Active Glucose Blood (TAYA CONTOUR NEXT TEST) STRPIndications:DM type 2, not at goal (HCC) Use to test blood sugar 6 times daily dx e11.9 540 Strip 3 9 Active CPAP every night at bedtime. 0 Active [place] Carbonate ER 450 MG Oral Tablet Extended Release (Lithobid ER) Take 1 Tablet by mouth in the morning. In the morning.. 0 3 Active Meclizine HCl 25 MG Oral Tablet (Antivert)Indicatio ns:Vertigo Take 1 Tablet by mouth 3 times a day as needed for Dizziness. 30 Tablet 1 3 Active Additional Information Patient not taking.Reported on 12/19/2022 traMADol HCl 50 MG Oral Tablet (Ultram)Indications :DDD (degenerative disc disease), cervical,Thoracic degenerative disc disease,Lumbar degenerative disc disease,Primary osteoarthritis of left foot Take 1 Tablet by mouth every 6 hours as needed for Pain, Severe. 30 Tablet 0 3 Active Additional Information Patient not taking.Reported [...] day. To affected area. 80 g 0 3 Active Pen [place] 32G X 5 MMIndications:Hyper glycemia Use as directed. Use with insulin pen 50 Each 0 3 Active Nystatin 034661 UNIT/GM External Powder (Nystop)Indications :Tinea cruris Apply topically to affected area 3 times a day. Apply to affected area skin folds 60 g 0 3 Active Levothyroxine Sodium 125 MCG Oral Tablet (Levoxyl)Indication s:Acquired hypothyroidism Take 1 Tablet by mouth in the morning. (at least 30 min prior to breakfast or other meds). 30 Tablet 11 3 Active Pantoprazole Sodium 40 MG Oral [...] not taking.Reported on 12/19/2022 FreeStyle David 3 SensorIndications:T ype 2 diabetes mellitus with hemoglobin A1c goal of less than 7.0% ([facility]) Use as directed. Change every 14 days e11.9 2 Each 11 3 Active rOPINIRole HCl 1 MG Oral Tablet (Requip) Take 2 Tablets by mouth at bedtime. 180 Tablet 0 3 Active Trulicity 0.75 MG/0.5ML Subcutaneous Solution Pen-injector (Dulaglutide)Indica tions:Diabetic retinopathy of both eyes with macular edema associated with type 2 diabetes mellitus, unspecified retinopathy severity ([facility]),Type 2 diabetes mellitus with hemoglobin A1c goal of less than 7.0% ([facility]),Type 2 diabetes mellitus with diabetic polyneuropathy, without long-term current use of insulin ([facility]) Inject 0.75 mg under the skin once a week. 3 mL 5 3 Active NovoLOG FlexPen 100 UNIT/ML Subcutaneous Solution Pen-injector (insulin aspart)Indications: Hyperglycemia Inject 3 units with meals if blood sugar greater than 200 while on prednisone 3 mL 0 3 12/20/19 23 Discontinued Insulin Glargine Solostar 100 UNIT/ML Subcutaneous Solution Pen-injector (Basaglar KwikPen)Indications :Type 2 diabetes mellitus with hemoglobin A1c goal of less than 7.0% ([facility]) Inject 10 Units under the skin daily. 15 mL 3 3 12/20/19 23 Discontinued documented as of this encounter (statuses as of 12/19/2022) Active Problems Problem Noted Date Other chest [...] . Secondary hyperparathyroidism, non-renal 04/01/2019 [employer] OTHER*[id number] 9 Mild persistent asthma without complicat ion [...] as of this encounter (statuses as of 12/19/2022) Resolved Problems Problem Noted Date Resolved Date [...] /14. DM type 2, not at goal 01/29/2014 [...] as of this encounter (statuses as of 12/19/2022) Immunizations Name Administration Dates Next Due Influenza, [...] Sign Reading Time Taken Comments Blood Pressure 116/66 12/19/2022 10:38 AM EDT Pulse 58 12/19/2022 10:38 AM EDT Temperature 35.7 C (96.2 F) 12/19/2022 10:38 AM E DT Respiratory Rate 16 12/19/2022 10:38 AM EDT Oxygen Saturation 99% 12/19/2022 10:38 AM EDT Inhaled Oxygen Concentration - - Weight 90.4 kg (199 lb 5 oz) 12/19/2022 10:38 AM EDT Height - - Body Mass Index 34.21 10/13/2022 6:11 PM EDT documented in this [...] Progress Notes * Teodoro Galaviz, DO - 12/19/2022 10:37 AM EDT Images from the original note were not included. Assessment and Plan Diabetic retinopathy of both eyes with macular edema associated with type 2 diabetes mellitus, unspecified retinopathy severity (HCC) Will attempt to move back to GLP-1 and away from insulin May need to keep on lower dose due to GI side effects with ozempic in the past - Trulicity 0.75 MG/0.5ML Subcutaneous Solution Pen-injector (Dulaglutide); Inject 0.75 mg under the skin once a week. Secondary hyperparathyroidism, non-renal (HCC) Type 2 diabetes mellitus with hemoglobin A1c goal of less than 7.0% (HCC) - HEMOGLOBIN A1C; Future - ALBUMIN / CREATININE RATIO, URINE; Future - Trulicity 0.75 MG/0.5ML Subcutaneous Solution Pen-injector (Dulaglutide); Inject 0.75 mg under the skin once a week. Dyslipidemia - COMPREHENSIVE METABOLIC PANEL; Future - LIPID PANEL WITH DIRECT LDL IF TG IS HIGH; Future Type 2 diabetes mellitus with diabetic polyneuropathy, without long-term current use of insulin (HCC) - Trulicity 0.75 MG/0.5ML Subcutaneous Solution Pen-injector (Dulaglutide); Inject 0.75 mg under the skin once a week. Type 2 diabetes mellitus with diabetic peripheral angiopathy without gangrene, without long-term current use of insulin (HCC) Mild persistent asthma without complication COLTEN (obstructive sleep apnea) Mild intermittent asthma with allergic rhinitis without complication HTN, goal below 130/80 - CBC WITH WBC DIFFERENTIAL; Future Gastroesophageal reflux disease with esophagitis without hemorrhage Generalized osteoarthritis Lumbar degenerative disc disease Chronic pain of both shoulders - XR SHOULDER, 2 OR MORE VIEWS Left knee pain, unspecified chronicity - XR KNEE 4 OR MORE VIEWS Chronic pain of right knee - XR KNEE 4 OR MORE VIEWS Iron deficiency anemia due to chronic blood loss - IRON SCREEN, INCLUDING TIBC; Future - FERRITIN; Future History of Present Illness Joyce Smith is a 57 year old female that presents for NEW PATIENT (Pt here for new pt/get est, previous [facility] pt.) Presents today in f/u Doing well overall And compliant with meds Does admit to having a lot of sugar in the diet And because of that has had to use insulin lately Was on ozempic in past and blood sugars did well but As she titrated up her GI side effects became too much And she had to stop Physical Exam Vitals: 12/19/22 1038 Temp: 35.7 C (96.2 F) Pulse: 58 Resp: 16 SpO2: 99% BP: 116/66 Physical Exam Vitals and nursing note reviewed. [...] flat. Palpations: Abdomen is soft. Musculoskeletal: General: Tenderness present. Normal range of motion. Cervical back: Normal range of motion and neck supple. Lymphadenopathy: Cervical: No cervical adenopathy. Skin: General: Skin is warm and dry. Neurological: General: No focal deficit present. Mental Status: She is alert and oriented to person, place, and time. Wrap-Up Follow-up: Return in about 6 months (around 06/20/2023). | Check-out note: Every 6 months - every other with [facility] prior to next ayo Time: Total time today was 45 minutes excluding any time spent in the performance of separately billed services. documented in this encounter Plan of Treatment Upcoming Encounters Date Type Specialty Care Team Description 12/29/2022 Office Visit Cardiology Jessica Baer PA-C [address] [place] [id number] 01/04/2023 Office Visit Gastroenterology Destiny De Leon PA-C [address] [place] [address] 01/20/2023 [facility] [address] [facility] [address] 05/24/2023 Office Visit Family Medicine Teodoro Galaviz DO [address] [place] [address] 07/03/2023 Imaging Radiology 11/20/2023 Office Visit Family [facility] Petra Block CRNP [address] [place] [address] Pending Results Name Type Priority Associated Diagnoses Date /Time XR KNEE 4 OR MORE VIEWS Medical Imaging Routine Left knee pain, unspecified chronicity Chronic pain of right knee 12/19/2022 11:25 AM EDT XR SHOULDER, 2 OR MORE VIEWS Medical Imaging Routine Chronic pain of both shoulders 12/19/2022 11:25 AM EDT Scheduled Orders Name Type Priority Associated Diagnoses Orde r Schedule CBC WITH WBC DIFFERENTIAL Lab Routine HTN, goal below 130/80 Expected: 06/17/2023 (Approximate), Expires: 12/20/2023 COMPREHENSIVE METABOLIC PANEL Lab Routine Dyslipidemia Expected: 06/17/2023 (Approximate), Expires: 12/20/2023 HEMOGLOBIN A1C Lab Routine Type 2 diabetes mellitus with hemoglobin A1c goal of less than 7.0% (HCC) Expected: 06/17/2023 (Approximate), Expires: 12/20/2023 ALBUMIN / CREATININE RATIO, URINE Lab Routine Type 2 diabetes mellitus with hemoglobin A1c goal of less than 7.0% (HCC) Expected: 06/17/2023 (Approximate), Expires: 12/20/2023 LIPID PANEL WITH DIRECT LDL IF TG IS HIGH Lab Routine Dyslipidemia Expected: 06/17/2023 (Approximate), Expires: 12/20/2023 IRON SCREEN, INCLUDING TIBC Lab Routine Iron deficiency anemia due to chronic blood loss Expected: 06/17/2023 (Approximate), Expires: 12/19/2023 FERRITIN Lab Routine Iron deficiency anemia due to chronic blood loss Expected: 06/17/2023 (Approximate), Expires: 12/19/2023 Scheduled Procedures Name Priority Associated Diagnoses Date/Ti [...] diabetes mellitus, unspecified retinopathy severity (HCC)- Primary Secondary hyperparathyroidism, non-renal (HCC) Secondary hyperparathyroidism, non-renal Type 2 diabetes mellitus with hemoglobin A1c goal of less than 7.0% (HCC) Dyslipidemia Other and unspecified hyperlipidemia Type 2 diabetes mellitus with diabetic polyneuropathy, without long-term current use of insulin (HCC) Type 2 diabetes mellitus with diabetic peripheral angiopathy without gangrene, without long-term current use of insulin (HCC) Mild persistent asthma without complication Unspecified asthma COLTEN (obstructive sleep apnea) Obstructive sleep apnea (adult) (pediatric) Mild intermittent asthma with allergic rhinitis without complication HTN, goal below 130/80 Unspecified essential hypertension Gastroesophageal reflux disease with esophagitis without hemorrhage Generalized osteoarthritis Generalized osteoarthrosis, unspecified site Lumbar degenerative disc disease Degeneration of lumbar or lumbosacral intervertebral disc Chronic pain of both shoulders Pain in joint, shoulder region Left knee pain, unspecified chronicity Chronic pain of right knee Iron deficiency anemia due to chronic blood [...] and were consensually agreed upon. Care Teams Cut Off Operator Scorer Relationship Specialty Start Date End Date Teodoro Galaviz DO [address] [place] [address] PCP - General Family Medicine 12/19/22 documented as of this encounter
--- OUTSIDE RECORDS SUMMARY | 2023-04-01 23:33 | External Medical Summary | Summary of Care ---
Author Name Unknown Organization [facility] Address [address] [facility] [place] [address] Phone [phone] Care Team Providers Care Vp [employer] Name Role Phone Teodoro Galaviz Primary Care Provider Encounter Details Date Type Department Care Team Description 09/30/2022 Telephone ENDO [facility], Endoscopy [address] [phone] Chun Bravo MD [address] [place], [place] [id number] Allergies Active Allergy Reactions Severity Noted Date [...] As directed 0 5 Active Glucose Blood (Liquid Light CONTOUR NEXT TEST) STRPIndications:DM type 2, not at goal (HCC) Use to test blood sugar 6 times daily dx e11.9 540 Strip 3 9 Active CPAP every night at bedtime. 0 Active [place] Carbonate ER 450 MG Oral Tablet Extended Release (Lithobid ER) Take 1 Tablet by mouth in the morning. In the morning.. 0 3 Active Meclizine HCl 25 MG Oral Tablet (Antivert)Indicati ons:Vertigo Take 1 Tablet by mouth 3 times a day as needed for Dizziness. 30 Tablet 1 3 Active Additional Information Patient not taking.Reported on 12/19/2022 traMADol HCl 50 MG Oral Tablet (Ultram)Indication [...] (Ascorbic Acid) Take by mouth. 0 Active Levothyroxine Sodium 112 MCG Oral Tablet (Levoxyl)Indicatio ns:Acquired hypothyroidism (Take 1 tablet by mouth daily at least 30 min prior to breakfast or other meds) 90 Tablet 3 2 023 Discontinued Vitamin B12 100 MCG Oral Tablet Take by mouth . 0 023 Discontinued(Me dication List Clean Up) busPIRone HCl 10 MG Oral Tablet (Buspar) 2 Tablets in the morning and 2 Tablets before bedtime. 0 3 023 Discontinued rOPINIRole HCl 0.5 MG Oral Tablet (Requip)Indication s:RLS (restless legs syndrome) Take 1 Tablet by mouth in the morning and 1 Tablet at noon and 1 Tablet before bedtime. 90 Tablet 3 3 023 Discontinued(Re fill) Childrens Chewable Multi Vits Oral Tablet Chewable Take 1 Tablet by mouth in the morning. 0 023 Discontinued(Me dication List Clean Up) rOPINIRole HCl 1 MG Oral Tablet (Requip) Take 2 Tablets by mouth every evening. 180 Tablet 1 3 023 Discontinued Sucralfate 1 GM Oral Tablet (Carafate) Take 1 Tablet by mouth in the morning and 1 Tablet at noon and 1 Tablet in the evening and 1 Tablet before bedtime. 40 Tablet 0 3 023 Discontinued(Me dication List Clean Up) Pantoprazole Sodium 40 MG Oral Tablet Delayed Release (Protonix)Indicati ons:Gastroesophage al reflux disease without esophagitis Take 1 Tablet by mouth in the morning. 30 minutes before the first meal of the day. Do not crush, split or chew the tablet. 30 Tablet 5 3 023 Discontinued(Me dication/Dose Changed) documented as of this encounter (statuses as [...] . Secondary hyperparathyroidism, non-renal 04/01/2019 [employer] OTHER*[id number] 9 Mild persistent asthma without complicat ion [...] & Above, IM , (FLULAVAL or FLUZONE) 12/02/2019,12/22/2018,04/06/2018,04/13 Seasonal Influenza, Split, I IV3, No Preserve, [...] encounter Miscellaneous Notes * Telephone Encounter - Mariela Daugherty RN - 09/30/2022 8:48 AM EDT Left message to return call to update pre procedural interview. Phone number to return call at [phone] documented in this encounter Plan of Treatment Upcoming Encounters Date Type Specialty Care Team Description 01/02/2023 Office Visit Cardiology Mone Mcgovern CRNP [address] [place] [address] 01/04/2023 Office Visit Gastroenterology Destiny De Leon PA-C [address] [place] [address] 01/20/2023 Office Visit Pharmacy [facility] [address] [place] [address] 05/24/2023 Office Visit Family Medicine Teodoro Galaviz DO [address] [place] [address] 07/03/2023 Imaging Radiology 11/20/2023 Office Visit Family [facility] Petra Block CRNP [address] [place] [address] Scheduled Procedures Name Priority Associated Diagnoses Date/Ti [...] and were consensually agreed upon. Care Teams [employer] Relationship Specialty Start Date End Date Teodoro Galaviz DO [address] [place] [address] PCP - General Family Medicine 12/19/22 documented as of this encounter
--- OUTSIDE RECORDS SUMMARY | 2023-04-01 23:33 | External Medical Summary | Summary of Care ---
Author Name Unknown Organization [facility] Address [address] [facility] [place] [address] Phone [phone] Care Team Providers Care Sandblaster Glass Name Role Phone Nam Squires DO Primary Care Provider Reason for Visit * Reason Onset Date Comments Test Results 12/09/2022 Encounter Details Date Type Department Care Team Description 12/09/2022 Telephone Family Practice [facility] [address] [place] [address] Nam Squires DO [address] [place] [address] Test Results Allergies Active Allergy Reactions Severity Noted Date [...] As directed 0 12/15/2014 Active Glucose Blood ([employer] CONTOUR NEXT TEST) STRPIndications:DM type 2, not at goal (HCC) Use to test blood sugar 6 times daily dx e11.9 540 Strip 3 01/29/2019 Active CPAP every night at bedtime. 0 Active [place] Carbonate ER 450 MG Oral Tablet Extended [...] prednisone 3 mL 0 10/15/2022 Active Pen [place] 32G X 5 MMIndications:Hypergl ycemia Use as directed. Use with insulin pen 50 Each 0 10/15/2022 Active Nystatin 937126 UNIT/GM External Powder (Nystop)Indications:T inea cruris Apply [...] by mouth in the morning. 90 Tablet 11/28/2022 Active Nitroglycerin 0.4 MG Sublingual Tablet Sublingual (Nitrostat) Place 1 Tablet under the tongue every 5 minutes as needed for Pain, Chest. up to 3 doses in 15 minutes 25 Tablet 11 11/28/2022 Active FreeStyle David 3 SensorIndications:Typ e 2 diabetes mellitus with hemoglobin A1c goal of less than 7.0% ([facility]) Use as directed. Change every 14 days e11.9 2 Each 11 12/01/2022 Active Insulin Glargine Solostar 100 UNIT/ML Subcutaneous Solution Pen-injector (Basaglar KwikPen)Indications:T ype 2 diabetes mellitus with hemoglobin A1c goal of less than 7.0% ([facility]) Inject 10 Units under the skin daily. 15 mL 3 12/01/2022 Active Fluconazole 150 MG Oral Tablet (Diflucan)Indications :Vaginal candidiasis Take 1 tablet by mouth x1 dose for vaginal yeast infection may repeat dose in 1 week if symptoms persist. 2 Tablet 0 12/05/2022 Active rOPINIRole HCl 1 MG Oral Tablet [...] . Secondary hyperparathyroidism, non-renal 04/01/2019 [employer] OTHER*[id number] 9 Mild persistent asthma without complicat ion [...] encounter Miscellaneous Notes * Telephone Encounter - Nam Squires DO - 12/09/2022 6:44 PM EDT Spoke with patient. Vascular study was normal. X-ray of shoulder appears normal. Await official radiology report of x-ray of shoulder Patient complains of right arm pain following cardiac catheterization at wrist. Patient advise continued supportive care, compression bandage and warm compresses to affected area.Patient advised to call or return to office if symptoms persist or worsen. documented in this encounter Plan of Treatment Upcoming Encounters Date Type Specialty Care Team Description 12/15/2022 Office Visit Sleep Disorders Shaniqua Spann DO [address] [place] [address] 12/19/2022 Office Visit Family Medicine Teodoro Galaviz DO [address] [place] [address] 12/29/2022 Office Visit Cardiology Jessica Baer PA-C [address] [place] [address] [place] [address] 01/04/2023 Office Visit Gastroenterology Destiny De Leon PA-C [address] [place] [address] 01/20/2023 [address] [address] 05/24/2023 Office Visit Family Medicine Teodoro Galaviz DO [address] [place] [address] 07/03/2023 Imaging Radiology Scheduled Procedures Name Priority Associated Diagnoses Date/Ti [...] and were consensually agreed upon. Care Teams Sandblaster Glass Relationship Specialty Start Date End Date Nam Squires DO [address] [place] [address] PCP - General Family Medicine 12/02/19 documented as of this encounter
--- OUTSIDE RECORDS SUMMARY | 2023-04-01 23:33 | External Medical Summary | Summary of Care ---
Author Name Unknown Organization [facility] Address [address] [facility] [place] [address] Phone [phone] Care Team Providers Care Social Welfare Clerk Name Role Phone Saul Galavizr Savita Primary Care Provider Reason for Visit * Reason Onset Date Comments Appointment 12/14/2022 Encounter Details Date Type Department Care Team Description 12/14/2022 Telephone Gastroenterology, [facility] [address] [facility] [place] [address] Specified, [facility] [address] [place] [address] Appointment Allergies Active Allergy Reactions [...] As directed 0 12/15/2014 Active Glucose Blood ([employer] CONTOUR NEXT TEST) STRPIndications:DM type 2, not at goal (HCC) Use to test blood sugar 6 times daily dx e11.9 540 Strip 3 01/29/2019 Active CPAP every night at bedtime. 0 Active [place] Carbonate ER 450 MG Oral Tablet Extended [...] area. 80 g 0 10/12/2022 Active Pen [place] 32G X 5 MMIndications:Hyperg lycemia Use as directed. Use with insulin pen 50 Each 0 10/15/2022 Active Nystatin 877700 UNIT/GM External Powder (Nystop)Indications: Tinea cruris Apply [...] goal of less than 7.0% ([facility]) Use as directed. Change every [...] . Secondary hyperparathyroidism, non-renal 04/01/2019 [employer] OTHER*[id number] 9 Mild persistent asthma without complicat ion [...] 432 06/2008 PSG -- CPAP 10 cwp [facility] documented as of this encounter (statuses as [...] encounter Miscellaneous Notes * Telephone Encounter - BETTY Love - 12/30/2022 9:40 AM EDT There is no urgency to the testing, she can get it when it is convenient for her to go to [facility] or [place] These are typically done every 1-2 years [...] pt needed scheduled for a fibroscan in [place]. I tried calling at check out but I was told that they would print the order and call to schedule Please reach out to patient to schedule.. Thank you! documented in this encounter Plan of Treatment Upcoming Encounters Date Type Specialty Care Team Description 01/02/2023 Office Visit Cardiology Mone Mcgovern CRNP [address] [place] [address] 01/04/2023 Office Visit Gastroenterology Destiny De Leon PA-C [address] [place] [address] 01/20/2023 Office Visit Pharmacy [facility] [address] [place], [place] [address] [address] 05/24/2023 Office Visit Family Medicine Teodoro Galaviz DO [address] [place] [address] 07/03/2023 Imaging Radiology 11/20/2023 Office Visit Family Medicine Petra Block CRNP [address] [place] [address] Scheduled Procedures Name Priority Associated Diagnoses Date/Ti [...] were consensually agreed upon. Care Teams Social Welfare Clerk Relationship Specialty Start Date End Date Teodoro Galaviz DO [address] [place] [address] PCP - General Family Medicine 12/19/22 documented as of this encounter
--- OUTSIDE RECORDS SUMMARY | 2023-04-01 23:33 | External Medical Summary | Summary of Care ---
Author Name Unknown Organization [facility] Address [address] [facility] [place] [address] Phone [phone] Care Team Providers Care Cardiac Monitor Technician Name Role Phone Saul Galavizr Savita Primary Care Provider Reason for Visit * Reason Comments Follow Up * Evaluate & Treat - Unlimited Visits (Within 30 days (routine)) - Authorized Specialty Diagnoses / Procedures Referred By Contact Referred To Contact Cardiovascular Medicine / Cardiology Diagnoses Palpitations Nam Squires DO [address] [place] [address] Referral ID Status Reason Start Date Expiration Date Visits Requested Visits Authorized [id number] Authorized Specialty Services Required 11/21/[phone] Encounter Details Date Type Department Care Team (Late st Contact Info) Description 01/02/2023 10:30 AM EDT Office Visit Cardiology, [facility] [address] [place] [address] Mone Mcgovern CRNP [address] [place] [address] Non-occlusive coronary artery disease*; Chest tightness; Heart palpitations; HTN, goal below 140/90; Hyperlipemia, mixed; Type 2 diabetes mellitus with diabetic peripheral angiopathy without gangrene, unspecified whether terminologist insulin use (HCC) Allergies Active Allergy Reactions Criticality Noted Date [...] CPAP every night at bedtime. 0 Active [place] Carbonate ER 450 MG Oral Tablet Extended [...] area. 80 g 0 10/12/2022 Active Pen [place] 32G X 5 MMIndications:Hyperg lycemia Use as directed. Use with insulin pen 50 Each 0 10/15/2022 Active Nystatin 639696 UNIT/GM External Powder (Nystop)Indications: Tinea cruris Apply [...] hemoglobin A1c goal of less than 7.0% ([facility]) Use as directed. Change every 14 days e11.9 2 Each 11 12/01/2022 Active rOPINIRole HCl 1 MG Oral Tablet (Requip) Take 2 Tablets by mouth at bedtime. 180 Tablet 0 12/09/2022 Active Trulicity 0.75 MG/0.5ML Subcutaneous Solution Pen-injector (Dulaglutide)Indicat ions:Diabetic retinopathy of both eyes with macular edema associated with type 2 diabetes mellitus, unspecified retinopathy severity ([facility]),Type 2 diabetes mellitus with hemoglobin A1c goal of less than 7.0% ([facility]),Type 2 diabetes mellitus with diabetic polyneuropathy, without long-term current use of insulin ([facility]) Inject 0.75 mg under the skin once a week. 3 mL 5 12/19/2022 Active documented as of this encounter (statuses [...] . Secondary hyperparathyroidism, non-renal 020 [facility]EARCH OTHER*[id number] 01/29/2019 Mild persistent asthma without complication 12/11 [...] Sign Reading Time Taken Comments Blood Pressure 122/76 01/02/2023 10:24 AM EDT Pulse 60 01/02/2023 10:24 AM EDT Temperature - - Respiratory Rate 14 01/02/2023 10:24 AM EDT Oxygen Saturation - - Inhaled Oxygen Concentration - - Weight 89.8 kg (198 lb) 01/02/2023 10:24 AM EDT Height - - Body Mass Index 33.99 10/13/2022 6:11 PM EDT documented in this [...] as of this encounter Progress Notes * BETTY Neff - 01/02/2023 10:30 AM EDT 01/02/2023 Cardiology Follow Up Primary Park Aide: SYDNEE Cardiac Problems: Palpitations PACs on EKG Sinus bradycardia Hypertension Hyperlipidemia GERD Type 2 diabetes with diabetic retinopathy and peripheral neuropathy Obesity s/p gastric bypass 03/2019 COLTEN on CPAP Bipolar disorder Family history of coronary artery disease HPI: Joyce Smith is a 57 year old female presents for close follow up. Last seen in our office on 11/25/2022 by Jessica Baer PA-C for follow up after an abnormal stress test with complaints of continued dizziness, palpitations, and exertion chest discomfort. Also Endorsed worsening bilateral lower extremity edema, initially helped with lasix and now "not working". Nuclear stress test was abnormal suggestive of a small sized reversible anteroapical perfusion defect consistent with distal LAD territory ischemia. She was scheduled for cardiac cath on 11/28/2022. Also of note, patient follows with [facility]. She was recommended to discussed adjustment inher [place] dosing with her symptoms; however, they did not want to make any changes at that time. She underwent cardiac cath on 11/28/2022 as noted below showing Mid-LAD stenosis of 50%. FFR analysis was not hemodynamically significant and therefore med management was recommended. Since the time of her cardiac cath, she had developed a recurrence of her chest pain symptoms. She presented to the ER at [facility] on 12/14/22. EKG was negative for ischemia. She was noted to be hypertensive at that time. She described the pain as feeling her heart beating 1000 mph, and felt skipping a beat, and that it would take her breath away. Of note, she did have an episode identical to her ER visit approx 15 minutes after her cath. She was given a GI cocktail, and a SL NTG with very little relief. There was no notation of ectopy or acute EKG changes. Patient was discharged post cath wearing an ambulatory monitoring coordinator. No results noted in cardiacstudies, will call to locate results as this was sent back prior to Dec.11. She also reports feeling intermittent dizzy spells when up doing normal ADL's, she has never synopsized. She does think she had experienced these while wearing the monitoring coordinator. Patient reports medication compliance with no untoward effects. REVIEW OF SYSTEMS: See HPI for pertinent positives. All others negative other than those noted in the HPI. CONSTITUTIONAL: No change in weight, No weakness, No fatigue and No fevers, No sweats or chills. PULMONARY: No cough, sputum, or hemoptysis, No wheezing, No shortness or breath and No recent change in breathing. CARDIOVASCULAR: No chest pain, No dyspnea on exertion, No edema, No palpitations and No syncope. GASTROINTESTINAL: No abdominal pain, No change in bowel habits, No significant heartburn, No nausea, No vomiting, No diarrhea, No constipation, No blood in stools or black tarry stools. No dysphagia. HEMATOLOGIC: No abnormal bleeding and No bruising. NEUROLOGICAL: Normal balance, No headaches and No weakness. Review of patient's allergies indicates: Allergen Reactions [...] comment) Strange feeling in head per patient Current Outpatient Medications Medication Sig Dispense Refill BD INSULIN SYRINGE ULTRAFINE 30G X 1/2" 0.3 ML MISC As directed 0 Glucose Blood (TAYA CONTOUR NEXT TEST) STRP Use to test blood sugar 6 times daily dx e11.9 540 Strip 3 CPAP every night at bedtime. [place] Carbonate ER 450 MG Oral Tablet Extended Release (Lithobid ER) Take 1 Tablet by mouth in the morning. In the morning.. Meclizine HCl 25 MG Oral Tablet (Antivert) Take 1 Tablet by mouth 3 times a day as needed for Dizziness. 30 Tablet 1 Syringe 25G X 1" 3 ML Use [...] day. To affected area. 80 g 0 Pen [place] 32G X 5 MM Use as directed. Use with insulin pen 50 Each 0 Nystatin 259565 UNIT/GM External Powder (Nystop) Apply topically to [...] skin once a week. 3 mL 5 traMADol HCl 50 MG Oral Tablet (Ultram) Take 1 Tablet by mouth every 6 hours as needed for Pain, Severe. (Patient not taking: Reported on 12/19/2022) 30 Tablet 0 No current facility-administered medications for this visit. 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 Dyer Bipolar I disorder, most recent episode depressed, mild ([facility]) 01/28/[address] Dyer BMI 40.0-44.9, adult ([facility]) 06/07/2020 Bunion of great toe of left [...] Lucero DM type 2, not at goal ([facility]) 01/29/2014 = 8.6 Dyslipidemia 02/26/2009 Per Lipid [...] effect Restless legs syndrome Secondary hyperparathyroidism, non-renal ([facility]) 04/01/2019 Sleep apnea on CPAP Sleep apnea, obstructive Status post total bilateral knee replacement 07/17/2016 Type 2 diabetes mellitus with hemoglobin A1c goal of less than 7.0% ([facility]) 01/28/2005 Per Diabetes Taxonomy. ICD-10 update of inactive term Type II diabetes mellitus with neurological manifestations ([facility]) 04/19/2019 Vitamin D deficiency 11/22/2011 = 17.9 Taking 50,000 twice weekly per Xavi. 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 Tobacco Use Smoking status: Never Smokeless tobacco: Never Vaping Use Vaping Use: Never used Substance and Sexual Activity Alcohol use: No Drug use: No Sexual activity: Yes Partners: Male control/protection: Surgical Comment: vasectomy Other Topics Concern Exercise Yes Comment: walks 2-3x/wk Self-Exams Yes Comment: breast Social Determinants of Health Food Insecurity: No Food Insecurity (12/24/2021) Hunger Vital Sign Worried About Running Out of Food in the Last Year: Never true Ran Out of Food in the Last Year: Never true OBJECTIVE/PHYSICAL EXAMINATION: BP 122/76 | Pulse 60 | Resp 14 | Wt 89.8 kg (198 lb) | BMI 33.99 kg/m | BSA 2.01 m General: No acute distress. A+Ox3. HEENT: Normocephalic. Atraumatic. PERRL. EOMI. Conjunctiva and sclera clear. NECK: No carotid bruits. No JVD. Carotid upstrokes are brisk. Heart: RRR. S1 and S2 noted. No murmur. No rubs or gallops. PMI non displaced. Lungs: Clear to auscultation. No wheezes.No rhonchi. No rales. Abdomen: Normal bowel sounds. Soft. Nontender. No masses or organomegaly. No abdominal bruits. Extremities: No edema. No clubbing or cyanosis. Pulses: radial=2/4, posterior tibial=2/4, dorsalis pedis = 2/4. NEURO: No focal deficits. PSYCH: Appropriate affect and insight. DATA Labs & Imaging Reviewed Below: Cardiac catheterization 11/28/2022 [facility]. Coronary disease - hemodynamically insignificant * Mid LAD with 50% stenosis; FFR performed- 0.81. PCI deferred. Recommend medication optimization at this time. * Prox-mid LCx with 30% stenosis. * Mid RCA with 40% stenosis. Echocardiogram Report 11/17/22 The qualitative LV ejection fraction is 60-64% (normal). The left ventricular diastolic function is normal. There is moderate mitral annular calcification. Trivial mitral regurgitation. Trivial tricuspid regurgitation. There is no evidence of pulmonary hypertension. Nuclear Stress Test Report 11/11/22 The combined low intensity exercise/pharmacologic stress test is abnormal with a small sized reversible anteroapical perfusion defect consistent with distal LAD territory ischemia. Gated SPECT imaging reveals mild apical anterior hypokinesis The left ventricular ejection fractionwas calculated to be > 70%. Zio 10/26/22-11/03/22 Patient had a min HR of 34 bpm, max HR of 148 bpm, and avg HR of 56 bpm. Predominant underlying rhythm was Sinus Rhythm. 9 Supraventricular Tachycardia runs occurred, the run with the fastest interval lasting 4 beats with a max rate of 148 bpm, the longest lasting 18 beats with an avg rate of 95 bpm. Supraventricular Tachycardia was detected within +/- 45 seconds of symptomatic patient event(s). Thirty-five patient triggered events and 8 diary events were submitted. The majority of events correlate with normal sinus rhythm, and normal sinus rhythm with premature atrial contractions. One event correlates with the 4 beat run of supraventricular tachycardia. The overall frequency of the premature atrial contractions was rare. ASSESSMENT/PLAN: 57 year old year old female 1. Non-occlusive coronary artery disease -Recent LHC 11/28/22 showing non-occlusive disease. Most significant area was the Mid-LAD with 50% stenosis; however, FFR analysis did not prove hemodynamically significant with recommendation for medication management. -She continues on crestor and ASA 81mg; however beta jessica therapy was not initiated s/t bradycardia. -Awaiting continous ambulatory monitoring coordinator results to consider addition of beta jessica therapyvs low dose amlodipine. 2. Chest tightness -Etiology unclear, questioning vasospasm effect based off of recent cardiac cath; however, patient is somewhat descriptive of a palpitation or arrhythmia course. Awaiting monitoring coordinator results. 3. Heart palpitations -As noted above. Awaiting monitoring coordinator results. Would like to start beta jessica therapy for known CAD as well as to treat the prior episodes of SVT noted on ZIO monitor dated September 2022. Concern is for bradycardia -Discussed with patient that we will contact her with results and discuss treatment goals with may include medication therapy vs EP referral if warranted. 4. HTN, goal below 140/90 -Well controlled. Not currently on any anti-hypertensive therapies. 5. Hyperlipemia, mixed -Most recent labs as noted above. Continue Crestor. -patient is working closely with MTM to regain control of her blood sugars. 6. Type 2 diabetes mellitus with diabetic peripheral angiopathy without gangrene, unspecified whether mcc insulin use (HCC) -Following closely with MTM -Remains compliant on medication therapies, diet and activity DISPOSITION: Follow up 3 months or if symptoms worsen/fail to improve. All questions were answered to the patients satisfaction. Patient advised to report to ED with any and all emergencies. The patient agrees to the above plan and will call with additional questions or concerns. BETTY [facility], [address] [place] [address] I spent a total of 48 minutes on the date of service in preparation, delivery, and documentation ofthe care provided to oJyce Smith excluding any time spent in the performance of separately billed services. This chart was completed in part utilizing [employer] Speech Voice Recognition Software. Grammatical errors, random word insertions, pronoun errors, and incomplete sentences are an occasional consequence of this system due to software limitations, ambient noise, and hardware issues. Any formal questions or concerns about the content, text, or information contained within the body of this dictation should be directly addressed to the provider for clarification. documented in this encounter Nursing Notes * Celia Justin LPN - 01/02/2023 10:24 AM EDT Examination Room: 3 Name: Joyce Smith Date of : 1965 Reason for Visit: Follow up er d/c Problems/Concerns: Denies complaint Interim Hosp(s): 12/13/22 for CP Chest Pain/SOB: Denies MyChart Discussed: ALREADY ACTIVE Patient was instructed to not get up on the exam table until directed and assisted by their provider; patient is to remain seated in the chair/ wheelchair/ exam table for fall prevention and safety reasons. Patient is aware to have assistance to step down off exam table with personnel. documented in this encounter Plan of Treatment Upcoming Encounters Date Type Department Care Team (Late st Contact Info) Description 01/02/2023 3:30 PM EDT Office Visit Pharmacy, [place] [address] [place] [address] [place], [facility] [address] [place] [address] 01/04/2023 10:00 AM EDT Office Visit Nutrition & Weight Management, [facility] [address] [place] [address] Destiny De Leon PA-C [address] [place] [address] 01/20/2023 10:30 AM EST Office Visit Pharmacy, [place] [address] [facility] [place] [address] [facility] [address] [facility] [place] [address] 04/18/2023 9:00 AM EST Office Visit Cardiology, [facility] [address] [place] [address] Mone Mcgovern CRNP [address] [place] [address] 05/24/2023 9:40 AM EDT Office Visit Family Practice [facility] [address] [place] [address] Teodoro Galaviz DO [address] [place] [address] 07/03/2023 2:30 PM EDT [facility] [address] [place] [address] 11/20/2023 9:00 AM EDT Office Visit Family Practice [facility] [address] [place] [address] Petra Block CRNP [address] [place] [address] Scheduled Procedures Name Priority Associated Diagnoses Date/Ti [...] as of this encounter Visit Diagnoses Diagnosis Non-occlusive coronary artery disease- Primary Coronary atherosclerosis of unspecified type of vessel, united [place] or graft Chest tightness Other chest pain Heart palpitations Palpitations HTN, goal below 140/90 Unspecified essential hypertension Hyperlipemia, mixed Mixed hyperlipidemia Type 2 diabetes mellitus with diabetic peripheral angiopathy without gangrene, unspecified whether terminologist insulin use (HCC) documented in this encounter Advance Directives Latest [...] and were consensually agreed upon. Care Teams Cardiac Monitor Technician Relationship Specialty Start Date End Date Teodoro Galaviz DO [facility] [place] [address] PCP - General Family Medicine 12/19/22 documented as of this encounter
--- OUTSIDE RECORDS SUMMARY | 2023-04-01 23:33 | External Medical Summary | Summary of Care ---
Author Name Unknown Organization [facility] Address [address] [facility] [place] [address] Phone [phone] Care Team Providers Care Cook Vacuum Kettle Name Role Phone Nam Squires DO Primary Care Provider Reason for Visit * Reason Onset Date Comments Test Results Imaging Study 12/09/2022 Encounter Details Date Type Department Care Team Description 12/09/2022 Telephone Family Practice [facility] [address] [place] [address] Georgina Bedolla DO [address] [place] [address] Test Results Imaging Study Allergies Active Allergy Reactions Severity Noted Date [...] as of this encounter (statuses as of 12/12/2022) Medications Medication Sig Dispensed Refills Start Date End Date Status BD INSULIN SYRINGE ULTRAFINE 30G X 1/2" 0.3 ML MISC As directed 0 12/15/2014 Active Glucose Blood (PureLiFi CONTOUR NEXT TEST) STRPIndications:DM type 2, not at goal (HCC) Use to test blood sugar 6 times daily dx e11.9 540 Strip 3 01/29/2019 Active CPAP every night at bedtime. 0 Active [place] Carbonate ER 450 MG Oral Tablet Extended [...] prednisone 3 mL 0 10/15/2022 Active Pen [place] 32G X 5 MMIndications:Hypergl ycemia Use as directed. Use with insulin pen 50 Each 0 10/15/2022 Active Nystatin 562812 UNIT/GM External Powder (Nystop)Indications:T inea cruris Apply [...] goal of less than 7.0% ([facility]) Use as directed. Change every 14 days e11.9 2 Each 11 12/01/2022 Active Insulin Glargine Solostar 100 UNIT/ML Subcutaneous Solution Pen-injector (Basaglar KwikPen)Indications:T ype 2 diabetes mellitus with hemoglobin A1c goal of less than 7.0% ([facility]) Inject 10 Units under the [...] as of this encounter (statuses as of 12/12/2022) Active Problems Problem Noted Date Other chest [...] . Secondary hyperparathyroidism, non-renal 04/01/2019 [facility] OTHER*[id number] 9 Mild persistent asthma without complicat ion [...] Generalized osteoarthritis COLTEN (obstructive sleep apnea) Overview: 11/7/14 pt has set at 12cwp CPAP Plus (pt set machine to 18 cwp), F&P FFM 432 06/2008 PSG -- CPAP 10 cwp [facility] documented as of this encounter (statuses as of 12/12/2022) Resolved Problems Problem Noted Date Resolved Date [...] as of this encounter (statuses as of 12/12/2022) Immunizations Name Administration Dates Next Due Influenza, [...] encounter Miscellaneous Notes * Telephone Encounter - Georgina Bedolla DO - 12/12/2022 10:08 AM EDT noted * Telephone Encounter - Sonya Landers LPN - 12/09/2022 3:17 PM EDT Provider to address: Simone from [facility] radiology is calling with STAT vasc dulplex venous UE results. Impression: No DVT identified in the right upper extremity. Pt is no longer there waiting. Called PCP office, spoke with Bindu and made her aware. Reason for Call: Test Results Imaging Study Contact: Telephone Call Contact Type: Test Results Total Time including non face to face (minutes): 5 documented in this encounter Plan of Treatment Upcoming Encounters Date Type Specialty Care Team Description 12/15/2022 Office Visit Sleep Disorders Shaniqua Spann, [address] [place] [address] 12/19/2022 Office Visit Family Medicine Teodoro Galaviz DO [address] [place] [address] 12/29/2022 Office Visit Cardiology Jessica Baer PA-C [address] [place] [address] 01/04/2023 Office Visit Gastroenterology Destiny De Leon PA-C [address] [place] [address] 01/20/2023 [address] [place] [address] [address] 05/24/2023 Office Visit Family Medicine Teodoro Galaviz, [address] [place] [address] 07/03/2023 Imaging Radiology Scheduled Procedures Name Priority [...] and were consensually agreed upon. Care Teams Cook Vacuum Kettle Relationship Specialty Start Date End Date Nam Squires DO [address] [place] [address] PCP - General Family Medicine 12/02/19 documented as of this encounter
--- OUTSIDE RECORDS SUMMARY | 2023-04-01 23:33 | External Medical Summary | Summary of Care ---
Author Name Unknown Organization [facility] Address [address] [facility] [address] Phone [phone] Care Team Providers Care Transit Planning Director Name Role Phone Saul Galavizr Savita Primary Care Provider Reason for Visit * Reason Onset Date Comments Appointment 12/14/2022 Encounter Details Date Type Department Care Team Description 12/14/2022 Telephone Gastroenterology, [facility] [address] [facility] [place] [address] Specified, Z[facility] No Resource [address] [place] [address] Appointment Allergies Active Allergy Reactions [...] as of this encounter (statuses as of 12/29/2022) Medications Medication Sig Dispensed Refills Start Date End Date Status BD INSULIN SYRINGE ULTRAFINE 30G X 1/2" 0.3 ML MISC As directed 0 12/15/2014 Active Glucose Blood ([employer] CONTOUR NEXT TEST) STRPIndications:DM type 2, not at goal (HCC) Use to test blood sugar 6 times daily dx e11.9 540 Strip 3 01/29/2019 Active CPAP every night at bedtime. 0 Active Universal Carbonate ER 450 MG Oral Tablet Extended [...] area. 80 g 0 10/12/2022 Active Pen [place] 32G X 5 MMIndications:Hyperg lycemia Use as directed. Use with insulin pen 50 Each 0 10/15/2022 Active Nystatin 685097 UNIT/GM External Powder (Nystop)Indications: Tinea cruris Apply [...] hemoglobin A1c goal of less than 7.0% ([facility]) Use as directed. Change every 14 days e11.9 2 Each 11 12/01/2022 Active rOPINIRole HCl 1 MG Oral Tablet (Requip) Take 2 Tablets by mouth at bedtime. 180 Tablet 0 12/09/2022 Active documented as of this encounter (statuses as of 12/29/2022) Active Problems Problem Noted Date Other chest [...] . Secondary hyperparathyroidism, non-renal 04/01/2019 [facility] OTHER*[id number] 9 Mild persistent asthma without complicat ion [...] 432 06/2008 PSG -- CPAP 10 cwp [facility] documented as of this encounter (statuses as of 12/29/2022) Resolved Problems Problem Noted Date Resolved Date [...] as of this encounter (statuses as of 12/29/2022) Immunizations Name Administration Dates Next Due Influenza, [...] encounter Miscellaneous Notes * Telephone Encounter - Ary King LPN - 12/29/2022 3:16 PM EDT Called to schedule patient a fibroscan. She was on the understanding that the fibroscan was not dueuntil next year. Please advise. Jake Mcallister * Telephone Encounter - Kiara Sukmuar - 12/14/2022 2:35 PM EDT Pt's check out notes stated that pt needed scheduled for a fibroscan in [place]. I tried calling at check out but I was told that they would print the order and call to schedule Please reach out to patient to schedule.. Thank you! documented in this encounter Plan of Treatment Upcoming Encounters Date Type Specialty Care Team Description 01/02/2023 Office Visit Cardiology Mone Mcgovern CRNP [address] [place] [address] 01/04/2023 Office Visit Gastroenterology Destiny De Leon PA-C [address] [place] [address] 01/20/2023 Office Visit Pharmacy [address] [address] 05/24/2023 Office Visit Family Medicine Teodoro Galaviz DO [address] [place] [address] 07/03/2023 Imaging Radiology 11/20/2023 Office Visit Family Medicine Petra Block CRNP [address] [place] [address] Scheduled Procedures Name Priority Associated Diagnoses Date/Ti [...] and were consensually agreed upon. Care Teams Transit Planning Director Relationship Specialty Start Date End Date Teodoro Galaviz DO [address] [place] [address] PCP - General Family Medicine 12/19/22 documented as of this encounter
--- OUTSIDE RECORDS SUMMARY | 2023-04-01 23:34 | External Medical Summary | Summary of Care ---
Author Name Unknown Organization [facility] Address [address] [facility] [place] [address] Phone [phone] Care Team Providers Care Development Technical Lead Name Role Phone Shaw Nam Primary Care Provider [phone] Encounter Details Date Type Department Care Team Description 12/05/2022 Orders Only Outcomes Research Department [address] [place] [facility] [place] [address] Mary Stockton CHRA [facility] Other*[id number] Allergies Active Allergy Reactions Severity Noted Date [...] as of this encounter (statuses as of 12/05/2022) Medications Medication Sig Dispensed Refills Start Date End Date Status BD INSULIN SYRINGE ULTRAFINE 30G X 1/2" 0.3 ML MISC As directed 0 12/15/2014 Active Glucose Blood ([facility] CONTOUR NEXT TEST) STRPIndications:DM type 2, not at goal ([facility]) Use to test blood sugar 6 times daily dx e11.9 540 Strip 3 01/29/2019 Active CPAP every night at bedtime. 0 Active [place] Carbonate ER 450 MG Oral Tablet Extended [...] prednisone 3 mL 0 10/15/2022 Active Pen [place] 32G X 5 MMIndications:Hypergl ycemia Use as directed. Use with insulin pen 50 Each 0 10/15/2022 Active Nystatin 758899 UNIT/GM External Powder (Nystop)Indications:T inea cruris Apply topically to affected area 3 times a day. Apply to affected area skin folds 60 g 0 10/26/2022 Active Levothyroxine Sodium 125 MCG Oral Tablet (Levoxyl)Indications: Acquired hypothyroidism Take 1 Tablet by mouth in the morning. (at least 30 min prior to breakfast or other meds). 30 Tablet 11/03/2022 Active Pantoprazole Sodium 40 MG Oral [...] in the morning. 90 Tablet 11/28/2022 Active Loratadine 10 MG Oral Tablet (Claritin)Indications :Urticaria Take 1 Tablet by mouth daily as needed for Rhinitis. 0 11/28/2022 Active rOPINIRole HCl 0.5 MG Oral Tablet (Requip)Indications:R LS (restless legs syndrome) Take 4 Tablets by mouth every night at bedtime. 90 Tablet 11/28/2022 Active Rosuvastatin Calcium 20 MG Oral Tablet (Crestor)Indications: Hyperlipemia, mixed Take 1 Tablet by mouth in the morning. 90 Tablet 11/28/2022 Active Nitroglycerin 0.4 MG Sublingual Tablet Sublingual (Nitrostat) Place 1 Tablet under the tongue every 5 minutes as needed for Pain, Chest. up to 3 doses in 15 minutes 25 Tablet 11/28/2022 Active FreeStyle David 3 SensorIndications:Typ e 2 diabetes mellitus with hemoglobin A1c goal of less than 7.0% ([facility]) Use as directed. Change every 14 days e11.9 2 Each 11 12/01/2022 Active Insulin Glargine Solostar 100 UNIT/ML Subcutaneous Solution Pen-injector (Basaglar KwikPen)Indications:T ype 2 diabetes mellitus with hemoglobin A1c goal of less than 7.0% ([facility]) Inject 10 Units under the skin daily. 15 mL 3 12/01/2022 Active documented as of this encounter (statuses as of 12/05/2022) Active Problems Problem Noted Date Other chest [...] . Secondary hyperparathyroidism, non-renal 04/01/2019 [facility] OTHER*[id number] 9 Mild persistent asthma without complicat ion [...] as of this encounter (statuses as of 12/05/2022) Resolved Problems Problem Noted Date Resolved Date [...] as of this encounter (statuses as of 12/05/2022) Immunizations Name Administration Dates Next Due Influenza, Whole Virus 12/11/2009 Pneumococcal Polysaccharide PPV23 (Pneumovax) 04/13/2017 Seasonal Influenza, PF, 6 mo ns & Above, IM , (Flulaval) 11/28/2022(Deferred: Patient Refused),12/02/2019,12/22/2018, 019,04/13/2017 Seasonal Influenza, Split, [...] Encounters Date Type Specialty Care Team Description 12/07/2022 Office Visit Gastroenterology Bindu Beltran CRNP [address] [place] [address] 12/15/2022 Office Visit Sleep Disorders Shaniqua Spann, DO [address] [place] [address] 12/29/2022 Office Visit Cardiology Jessica Baer PA-C [address] [place] [address] 01/20/2023 Office Visit Pharmacy [address] [place] [address] 05/24/2023 Office Visit Family Medicine Teodoro Galaviz, DO [address] [place] [address] 07/03/2023 Imaging Radiology Scheduled Orders Name Type Priority Associated Diagnoses Orde r Schedule MYCODE SUBSEQUENT ADULT Lab Routine [facility] Other*[id number] Every 6 Months for 2 Occurrences starting 12/05/2022 until 12/25/2023 Scheduled Procedures Name Priority Associated Diagnoses Date/Ti [...] 06/28/2023 06/27/2022, 1205/2020, 12/25/2019, Additional history exists Cologuard 10/20/2023 10/19/2020, [...] as of this encounter Visit Diagnoses Diagnosis [facility] Other*[id number] documented in this encounter Advance Directives Latest [...] and were consensually agreed upon. Care Teams Development Technical Lead Relationship Specialty Start Date End Date Nam Squires DO [address] [place] [address] PCP - General Family Medicine 12/02/19 documented as of this encounter
--- OUTSIDE RECORDS SUMMARY | 2023-04-01 23:34 | External Medical Summary | Summary of Care ---
Author Name Unknown Organization [facility] Address [address] [place] [address] Phone [phone] Care Team Providers Care Soil Field Technician Name Role Phone [place] Primary Care Provider Reason for Visit * Auth/Cert Specialty Diagnoses / Procedures Referred By Gustavo t Referred To Contact Diagnoses Dyspnea, unspecified type Dyspnea, unspecified type [R06.00] Procedures CORONARY ANGIOGRAPHY W/LEFT HEART CATH CORONARY ANGIOGRAPHY W/LEFT HEART CATH Referral ID Status Reason Start Date Expiration Date Visits Re quested Visits Authorized [id number] Encounter Details Date Type Department Care Team Description 11/28/2022 Hospital Encounter CRS Waiting C, Cardiac Recovery Suite Waiting Unit, [address] [place] [address] Angelica Sethi MD [address] [place] [address] Allergies Active Allergy Reactions Severity Noted Date [...] as of this encounter (statuses as of 11/29/2022) Medications Medication Sig Dispensed Refills Start Date End Date Status BD INSULIN SYRINGE ULTRAFINE 30G X 1/2" 0.3 ML MISC As directed 0 5 Active Glucose Blood (TAYA CONTOUR NEXT TEST) STRPIndications:DM type 2, not at goal (HCC) Use to test blood sugar 6 times daily dx e11.9 540 Strip 3 9 Active CPAP every night at bedtime. 0 Active Cook Carbonate ER 450 MG Oral Tablet Extended [...] (Ascorbic Acid) Take by mouth. 0 Active Triamcinolone Acetonide 0.5 % External Cream (Aristocort) Apply topically to affected area 2 times a day. To affected area. 80 g 0 3 Active NovoLOG FlexPen 100 UNIT/ML Subcutaneous Solution Pen-injector (insulin aspart)Indications :Hyperglycemia Inject 3 units with meals if blood sugar greater than 200 while on prednisone 3 mL 0 3 Active Pen Putnam 32G X 5 MMIndications:Hype rglycemia Use as directed. Use with insulin pen 50 Each 0 3 Active Nystatin 057069 UNIT/GM External Powder (Nystop)Indication s:Tinea cruris Apply [...] mouth in the morning. 0 3 Active Loratadine 10 MG Oral Tablet (Claritin)Indicati ons:Urticaria Take 1 Tablet by mouth daily as needed for Rhinitis. 0 3 Active rOPINIRole HCl 0.5 MG Oral Tablet (Requip)Indication s:RLS (restless legs syndrome) Take 4 Tablets by mouth every night at bedtime. 90 Tablet 3 3 Active Rosuvastatin Calcium 20 MG Oral Tablet (Crestor)Indicatio ns:Hyperlipemia, mixed Take 1 Tablet by mouth in the morning. 90 Tablet 3 3 Active Nitroglycerin 0.4 MG Sublingual Tablet Sublingual (Nitrostat) Place 1 Tablet under the tongue every 5 minutes as needed for Pain, Chest. up to 3 doses in 15 minutes 25 Tablet 11 3 Active rOPINIRole HCl 0.5 MG Oral Tablet (Requip)Indication s:RLS (restless legs syndrome) Take 1 Tablet by mouth in the morning and 1 Tablet at noon and 1 Tablet before bedtime. 90 Tablet 3 3 11/29/19 23 Discontinued(Re fill) rOPINIRole HCl 1 MG Oral Tablet (Requip) Take 2 Tablets by mouth every evening. 180 Tablet 1 3 11/29/19 23 Discontinued Loratadine 10 MG Oral Tablet (Claritin)Indicati ons:Urticaria Take 1 Tablet by mouth in the morning. 30 Tablet 5 3 11/29/19 23 Discontinued(Re fill) Rosuvastatin Calcium 10 MG Oral Tablet (Crestor)Indicatio ns:Hyperlipemia, mixed Take 1 Tablet by mouth in the morning. 30 Tablet 11 3 11/29/19 23 Discontinued(Re fill) Furosemide 20 MG Oral Tablet (Lasix) Take 1 Tablet by mouth in the morning. 30 Tablet 5 3 11/29/19 23 Discontinued(Re fill) documented as of this encounter (statuses as of 11/29/2022) Active Problems Problem Noted Date Other chest [...] . Secondary hyperparathyroidism, non-renal 04/01/2019 [facility] OTHER*[id number] 9 Mild persistent asthma without complicat ion [...] as of this encounter (statuses as of 11/29/2022) Resolved Problems Problem Noted Date Resolved Date [...] as of this encounter (statuses as of 11/29/2022) Immunizations Name Administration Dates Next Due Influenza, [...] Sign Reading Time Taken Comments Blood Pressure 119/60 11/28/2022 2:40 PM EDT Pulse 49 11/28/2022 2:45 PM EDT Temperature 36.2 C (97.2 F) 11/28/2022 12:00 PM E DT Respiratory Rate 21 11/28/2022 2:45 PM EDT Oxygen Saturation 99% 11/28/2022 2:45 PM EDT Inhaled Oxygen Concentration - - Weight - - Height - - Body Mass Index - - documented in this encounter Functional Status Functional [...] No 03/26/2021 documented as of this encounter Discharge Instructions * Discharge Instr - AVS* BETTY Arguello - 11/28/2022 12:59 PM EDT CARDIAC RECOVERY SUITE Discharge Date: 11/28/2022 Check your Patient Education Brochure for further information. Please contact your physician, Dr. Sethi of the Department of Cardiology at [phone], during business hours for any questions or test results. For after-hour emergencies call [phone] and have your doctor paged. Scheduling Services is available daily between the hours of 8:00 a.m and 9:00 p.m. by calling . The information below provides you with the instructions and the list of medications you need to betaking following discharge from the hospital. If you have any questions, please ask before leaving.Please carry this letter with you when you see your doctor in the clinic. If you have questions, you can reach us at the numbers above. Diet: heart healthy diet Progress to prescribed diet as tolerated. If nausea should occur, have clear liquids only until soft foods can be tolerated. Special Instructions: Your rosuvastatin has been increased to 20 mg daily. This is to help slow the progression of your coronary artery disease. Radial Artery Catheterization Instructions for Post Care Activity: Do not use the arm we used for your procedure today. Do not lift more than 10 lbs for 3 days with arm used for procedure. A responsible adult must be with the patient for 24 hours after your procedure. Rest today but you may resume your usual activity tomorrow. Do not drive, operate any appliances and/or machinery or sign legal documents for 24 hours due to the anesthesia. You may return to work in 24 hours. You may wash the wrist with soap and water and you may shower. Do not soak the wrist in water without a waterproof bandage until the small incision is healed. If you notice bleeding, increased swelling, tingling in the fingers or pain in your forearm that is not relieved by Tylenol, please seek medical attention. If you develop a fever over 101 degrees F you should contact your drug department worker. It is normal to have a small amount of discomfort for up to one week following your procedure but this should continue to improve with time, not worsen. If you have any questions or are concerned with how your arm is healing, call the doctor who did your procedure at . Keep the puncture site covered with a dry bandage for 24 hours, then remove the bandage. You shouldreplace it every 24 hours or if it gets wet. This should be done until the puncture site has completely healed. Date you may return to work or school: Monday A 1 month follow up in Cardiology has been requested and will be arranged for you following discharge. documented in this encounter H&P Notes * BETTY Arguello - 11/28/2022 10:28 AM EDT HISTORY & PHYSICAL INTERVAL NOTE - Cardiology Service [address] [address] History and Physical Update: Name: Joyce Smith Location: CATH/Cath Date: 11/28/2022 Time: 10:28 AM DATE OF HISTORY AND PHYSICAL: REFERRED BY: Jessica SHETTY Chief Complaint: 11/25/2022 I have reviewed the H&P previously performed and examined the patient today. There are no new findings noted. Physical Examination: BP: 154/78 Pulse: 46 Resp: 16 SpO2: 100% Cardiac: S1 and S2 normal, (+) a grade 3/6 systolic murmur is present at the URSB: no radiation Lungs: normal respiratory effort, lungs clear to auscultation and percussion Right Radial pulse 2+ Allens test normal Right Femoral pulse 2+ Right Femoral Bruit no Right DP pulse 2+ Right PT pulse 2+ IV Contrast Allergy: no Contraindications to dual anti-platelet therapy: No History of anemia: Yes ASA: 325 mg of ASA given if not on chronic daily ASA (ASA TO BE CHEWED IF GIVEN JUST PRIOR TO CATH) Anticoagulation: No Labs reviewed as indicated below: Latest Reference Range & Units 11/25/22 10:54 Sodium 135 - 146 mmol/L 141 Potassium 3.5 - 5.1 mmol/L 4.3 Chloride 98 - 107 mmol/L 105 CO2 22 - 32 mmol/L 26 BUN 6 - 20 mg/dL 20 Creatinine 0.5 - 1.0 mg/dL 0.8 Estimated Glomerular Filtration Rate >=60 mL/min >90 Anion Gap 7 - 15 mmol/L 10 Glucose 70 - 120 mg/dL 281 (H) Calcium 8.4 - 10.2 mg/dL 9.5 (H): Data is abnormally high Latest Reference Range & Units 11/25/22 10:54 WBC 4.00 - 10.80 K/uL 6.56 HGB 12.0 - 15.3 g/dL 10.8 (L) HCT 36.0 - 45.2 % 32.8 (L) MCV 81.5 - 97.5 fL 92.1 PLT 140 - 400 K/uL 307 (L): Data is abnormally low * BETTY Arguello - 11/28/2022 9:59 AM EDT The note below has been copied and pasted from office visit with Jessica SHETTY on 11/25/2022 11/25/2022 Cardiology Follow Up Past Medical History: Palpitations PACs on EKG Sinus bradycardia Hypertension Hyperlipidemia GERD 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 Last seen in clinic approximately 4 weeks ago by BETTY Lindo. Initially referred by her PCP due to symptoms of palpitations and low heart rate. EKG was showing marked sinus bradycardia with PACs rates in the 40s. It appears that her heart rates have been bradycardic dating back to 2018. Presents today with David. Since last visit she continues to have exertional chest discomfortand shortness of breath as well as tachy palpitations, seem to be relieved with rest. Also has fatigue and low stamina. Nuclear stress test abnormal with a small sized reversible anteroapical perfusio n defect consistent with distal LAD territory ischemia. Compliant on aspirin 81 mg daily. Continues to have lower extremity edema, furosemide started, thinks it was helping, but now with worsening swelling. Has dizziness at baseline, but over past 2 days feels that it is worse, feels off balanced. Had episodes of dizziness after eating. Denies fever, chills, cough, hematochezia, melena,or hemoptysis. She discussed lithium with psych provider, Katarina at [facility], they do not recommend any changes at this time. Cook level low. REVIEW OF SYSTEMS: See HPI for pertinent positives. All others negative other than those noted in the HPI. CONSTITUTIONAL: No change in weight, No weakness, + fatigue and No fevers, No sweats or chills. PULMONARY: No cough, sputum, or hemoptysis, No wheezing, + shortness or breath and No recent changein breathing. CARDIOVASCULAR: + chest pain, + dyspnea on exertion, No edema, No palpitations [...] Current Outpatient Medications Medication Sig Dispense Refill CPAP every night at bedtime. Cook Carbonate ER 450 MG Oral Tablet Extended Release (Lithobid ER) Take 1 Tablet by mouth in the morning. In the morning.. rOPINIRole HCl 0.5 MG Oral Tablet (Requip) Take 1 Tablet by mouth in the morning and 1 Tablet at noon and 1 Tablet before bedtime. 90 Tablet 3 Triamcinolone Acetonide 0.1 % External Cream (Aristocort) Apply topically to affected area 2 times a day. To affected area arm and leg. 60 g 5 Cyanocobalamin 1000 MCG/ML Injection Solution (Cyanocobalamin) INJECT DIRECTED 1,000 MCG EVERY 30 DAYS . 3 mL 3 Diclofenac Sodium 1 % External Gel Apply topically to affected area. Apply to effected areas rOPINIRole HCl 1 MG Oral Tablet (Requip) Take 2 Tablets by mouth every evening. 180 Tablet 1 Vitamin C Adult Gummies 125 MG Oral Tablet Chewable (Ascorbic Acid) Take by mouth. NovoLOG FlexPen 100 UNIT/ML Subcutaneous Solution Pen-injector (insulin aspart) Inject 3 units withmeals if blood sugar greater than 200 while on prednisone 3 mL 0 Nystatin 220448 UNIT/GM External Powder (Nystop) Apply topically to [...] 1 Tablet by mouth in the morning. Rosuvastatin Calcium 10 MG Oral Tablet (Crestor) Take 1 Tablet by mouth in the morning. 30 Tablet 11 Furosemide 20 MG Oral Tablet (Lasix) Take 1 Tablet by mouth in the morning. 30 Tablet 5 BD INSULIN SYRINGE ULTRAFINE 30G X 1/2" 0.3 ML MISC As directed 0 Glucose Blood (TAYA CONTOUR NEXT TEST) STRP Use to test blood sugar 6 times daily dx e11.9 540 Strip 3 busPIRone HCl 10 MG Oral Tablet (Buspar) 2 Tablets in the morning and 2 Tablets before bedtime. (Patient not taking: Reported on 11/25/2022) Meclizine HCl 25 MG Oral Tablet (Antivert) [...] once monthly 50 Each 0 Triamcinolone Acetonide 0.5 % External Cream (Aristocort) Apply topically to affected area 2 times a day. To affected area. 80 g 0 Pen Putnam 32G X 5 MM Use as directed. Use with insulin pen 50 Each 0 Loratadine 10 MG Oral Tablet (Claritin) Take 1 Tablet by mouth in the morning. (Patient taking differently: Take 1 Tablet by mouth daily as needed.) 30 Tablet 5 No current facility-administered medications for this visit. 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 Dyer Bipolar I disorder, most recent episode depressed, mild ([facility]) 01/28/[address] Dyer BMI 40.0-44.9, adult ([facility]) 06/07/2020 Bunion of great toe of left [...] Lucero DM type 2, not at goal ([facility]) 01/29/2014 = 8.6 Dyslipidemia 02/26/2009 Per Lipid [...] effect Restless legs syndrome Secondary hyperparathyroidism, non-renal ([facility]) 04/01/2019 Sleep apnea on CPAP Sleep apnea, obstructive Status post total bilateral knee replacement 07/17/2016 Type 2 diabetes mellitus with hemoglobin A1c goal of less than 7.0% ([facility]) 01/28/2005 Per Diabetes Taxonomy. ICD-10 update of inactive term Type II diabetes mellitus with neurological manifestations ([facility]) 04/19/2019 Vitamin D deficiency 11/22/2011 = 17.9 [...] of Health Food Insecurity: No Food Insecurity Worried About Running Out of Food in the Last Year: Never true Ran Out of Food in the Last Year: Never true OBJECTIVE/PHYSICAL EXAMINATION: BP 124/66 (BP Cuff Size: Large) | Pulse 60 | Resp 16 | Wt 89.8 kg (198 lb) | BMI 33.99 kg/m | BSA2.01 m General: No acute distress. A+Ox3. HEENT: Normocephalic. Atraumatic. PERRL. EOMI. Conjunctiva and sclera clear. NECK: No carotid bruits. No JVD. Carotid upstrokes are brisk. Heart: RRR. S1 and S2 noted. +2/6 diastolic murmur. No rubs or gallops. PMI non displaced. Lungs: Clear to auscultation. No wheezes.No rhonchi. No rales. Abdomen: Normal bowel sounds. Soft. Nontender. No masses or organomegaly. No abdominal bruits. Extremities: 1+ bilateral lower extremity edema. No clubbing or cyanosis. Pulses: radial=2/4, posterior tibial=2/4, dorsalis pedis = 2/4. NEURO: No focal deficits. PSYCH: Appropriate affect and insight. DATA Labs & Imaging Reviewed Below: Echocardiogram Report 11/17/22 The qualitative LV ejection [...] 57 year old year old female 1. Abnormal nuclear stress test 2. TRIPP (dyspnea on exertion) 3. Heart palpitations 4. Bradycardia 5. Fatigue, unspecified type - Patient with concerns regarding exertional chest discomfort and dyspnea. Also notable fatigue functional capacity. - ASCVD risk factors include, poorly controlled DM, HLD, obesity, and family history. - Nuclear stress test abnormal with a small sized reversible anteroapical perfusion defect consistent with distal LAD territory ischemia. - Recommend further ischemic workup with cardiac catheterization. Discussed procedure with patient,risks and benefits, patient agreeable, prefers to have done in [place]. - Catheterization planned for 11/28, preop labs and chest x-ray ordered - continue aspirin 81 mg daily 6. Bilateral leg edema 7. Diastolic murmur - Patient with mild hypervolemia on exam mild lower extremity edema, abdominal bloating, and orthopnea. -Low-pitched diastolic murmur auscultated on exam Continue Lasix 20 mg daily Patient carries a history of bipolar disorder and is on lithium. There is risk for conduction system disease and bradycardia/sinoatrial node dysfunction after long-term use. There is also risk for peripheral edema and hypotension with the use of this medication. This medication may ultimately need weaned vs discontinued. ? Cook use contributing to hypervolemia- lithium level low on lab work, patient discussed with psych provider who recommends to continue lithium at this time 8. HTN, goal below 140/90 - controlled 9. Hyperlipemia, mixed Uncontrolled in the past. Last LDL 72. Family history of heart disease Continue rosuvastatin 10 mg daily DISPOSITION: Follow up post cath or sooner if symptoms worsen/fail to improve. All questions were answered to the patients satisfaction. Patient advised to report to ED with any and all emergencies. The patient agrees to the above plan and will call with additional questions or concerns. Jessica Baer PA-C Cardiology, [address] [place] [address] documented in this encounter Miscellaneous Notes * Ancillary Progress Note - MALIA Hanson - 11/28/2022 12:02 PM EDT [address] [address] Ancillary Progress Note Patient Name: Joyce Smith Date: 11/28/2022 Patient will be escorted to Cardiac Recovery Suite. We performed a diagnostic cardiac catheterization procedure on this patient. The right radial artery was used for access with a 6 Tunisian sheath. A Radial Band was applied at 13 mL. of air to close the site. There is no hematoma and no ooze from the cath site noted. No sterile dressing applied to site. Radial band applied. Distal pulses were palpated and instructions to patient were given. There were no complications during the case. Please seethe MAR for the medications that were given. See Cath Procedure Log for patient vitals during the case. * Progress Notes - Non-Billable - Ansley Javier MD - 11/28/2022 9:23 AM EDT PROGRESS NOTE - Interventional Cardiology [address] [address] Name: Joyce Smith Date: 11/28/2022 Time: 9:24 AM Name: Joyce Smith Referring Provider: Dr. Andrews [facility] [place] [id number] Referring Recorder Of Deeds: same as above Procedure Requested: Left heart cath, Coronary angiography Indication for Cath: Dyspnea Medical History Medication List (+) DM, if yes, what meds: insulin Prior to Admission medications Medication Sig Last Dose Discont. Furosemide 20 MG Oral Tablet (Lasix) Take 1 Tablet by mouth in the morning. Aspirin 81 MG Oral Tablet Delayed Release Take 1 Tablet by mouth in the morning. Rosuvastatin Calcium 10 MG Oral Tablet (Crestor) Take 1 Tablet by mouth in the morning. Pantoprazole Sodium 40 MG Oral Tablet Delayed Release (Protonix) Take 1 Tablet by mouth in the morning. Levothyroxine Sodium 125 MCG Oral Tablet (Levoxyl) Take 1 Tablet by mouth in the morning. (at least30 min prior to breakfast or other meds). Loratadine 10 MG Oral Tablet (Claritin) Take 1 Tablet by mouth in the morning. Patient taking differently: Take 1 Tablet by mouth daily as needed. Nystatin 707349 UNIT/GM External Powder (Nystop) Apply topically to affected area 3 times a day. Apply to affected area skin folds NovoLOG FlexPen 100 UNIT/ML Subcutaneous Solution Pen-injector (insulin aspart) Inject 3 units withmeals if blood sugar greater than 200 while on prednisone Pen Putnam 32G X 5 MM Use as directed. Use with insulin pen Triamcinolone Acetonide 0.5 % External Cream (Aristocort) Apply topically to affected area 2 times a day. To affected area. Vitamin C Adult Gummies 125 MG Oral Tablet Chewable (Ascorbic Acid) Take by mouth. rOPINIRole HCl 1 MG Oral Tablet (Requip) Take 2 Tablets by mouth every evening. Diclofenac Sodium 1 % External Gel Apply topically to affected area. Apply to effected areas Cyanocobalamin 1000 MCG/ML Injection Solution (Cyanocobalamin) INJECT DIRECTED 1,000 MCG EVERY 30 DAYS . Syringe 25G X 1" 3 ML Use as directed for B12 injection once monthly Triamcinolone Acetonide 0.1 % External Cream (Aristocort) Apply topically to affected area 2 times a day. To affected area arm and leg. Meclizine HCl 25 MG Oral Tablet (Antivert) Take 1 Tablet by mouth 3 times a day as needed for Dizziness. traMADol HCl 50 MG Oral Tablet (Ultram) Take 1 Tablet by mouth every 6 hours as needed for Pain, Severe. rOPINIRole HCl 0.5 MG Oral Tablet (Requip) Take 1 Tablet by mouth in the morning and 1 Tablet at noon and 1 Tablet before bedtime. Cook Carbonate ER 450 MG Oral Tablet Extended Release (Lithobid ER) Take 1 Tablet by mouth in the morning. In the morning.. CPAP every night at bedtime. Glucose Blood (TAYA CONTOUR NEXT TEST) STRP Use to test blood sugar 6 times daily dx e11.9 BD INSULIN SYRINGE ULTRAFINE 30G X 1/2" 0.3 ML MISC As directed (+) HTN (-) Prior CHF in last 2 weeks (-) PVD (-) Dialysis (-) Smoked in the past year (+) HLD (-) Family heart disease (male<55, female<65) (Parents with late Mis) (-) Prior NV (-) Prior PCI, if yes, when: n/a (-) Valve Surgery (-) CABG, if yes, when n/a (-) Stroke/TIA (-) COPD/Emphysema (+) ASA in the last 24 hours (-) Dual Anti-platelet Therapy, if yes, what med: n/a (-) History of HIT (-) Allergic to Dye, if yes, were they prepped: n/a Review of patient's allergies indicates: Allergen Reactions [...] comment) Strange feeling in head per patient CSHA Frailty Score: 3 Very Fit - 1 Well - 2 Managing Well - 3 Vulnerable - 4 Mildly Frail - 5 Moderately Frail - 6 Severely Frail - 7 Very Severely Frail - 8 Terminally Ill - 9 Current Presentation Admission Date: 11/29/22 | Admission Time: 10a CAD Presentation: (None, Unlikely to be ischemic, Stable, Unstable): stable Anginal Class: 2 Anti-Anginals in the last 2 weeks: - Beta Blockers | - Calcium Channel | - Long Acting Nitrates LV Dysfunction/ Cardiomyopathy: No EF in last 6 months: 60 % Stress Test (Last 6 months): yes | Type of stress test: NM Result (No test, Low Risk, Intermediate Risk, High Risk, Negative, Indeterminate): as below Labs Last Creatinine: Lab Results Component Value Date/Time CREATININE - [facility] 0.8 11/25/2022 10:54 AM CREATININE - [facility] 1.0 03/17/2020 08:54 AM CREATININE CLEARANCE - [facility] 164 (H) 05/13/1997 01:25 PM CREATININE, 24 HOUR URINE - [facility] 1.122 06/06/2020 10:45 AM CREATININE, 24 HOUR URINE - [facility] 1.891 (H) 05/13/1997 01:25 PM CREATININE, 24 HR UR 44 06/06/2020 10:45 AM CREATININE, RANDOM URINE - [facility] 56 12/08/2021 08:51 AM CREATININE, RANDOM URINE - [facility] 38 03/09/2017 01:50 PM CREATININE-OUTSIDE LAB 1.10 04/11/2015 12:00 AM Last GFR: No components found for: E GLOM FILT RATE Last INR: INR (no units) Date Value 11/25/2022 1.0 Last Hb/Hct: HGB (g/dL) Date Value 11/25/2022 10.8 (L) 03/17/2020 12.3 HCT (%) Date Value 11/25/2022 32.8 (L) 03/17/2020 38.7 Misc. Notes 57 year old female with PMHx significant for HTN, HLD, sinus bradycardia, PACs, T2DM, obesity s/p gastric bypass Mar 2019, COLTEN on CPAP, bipolar disorder and family history of CAD who presents for coronary angiogram, noted with abnormal NST. TTE 11/17/22 Interpretation Summary The qualitative LV ejection fraction is 60-64% (normal). The left ventricular diastolic function is normal. There is moderate mitral annular calcification. Trivial mitral regurgitation. Trivial tricuspid regurgitation. There is no evidence of pulmonary hypertension. NST 11/11/22 Interpretation Summary This study has what is deemed to be a "significant abnormality" consistent with ACT 112. See additional documentation regarding notification of patient and ordering provider. The combined low intensity exercise/pharmacologic stress test is abnormal with a small sized reversible anteroapical perfusion defect consistent with distal LAD territory ischemia. Gated SPECT imaging reveals mild apical anterior hypokinesis The left ventricular ejection fractionwas calculated to be > 70% documented in this encounter Plan of Treatment Upcoming Encounters Date Type Specialty Care Team Description 12/01/2022 Office Visit Pharmacy [facility] [address] [place] [address] 12/07/2022 Office Visit Gastroenterology Bindu Beltran CRNP [address] [place] [address] 12/15/2022 Office Visit Sleep Disorders Shaniqua Spann, [address] [place] [id number] 01/20/2023 Office Visit Pharmacy [facility] [address] [place] [address] 05/24/2023 Office Visit Family Medicine Teodoro Galaviz, DO [address] [place] [address] 07/03/2023 Imaging Radiology Scheduled Orders Name Type Priority Associated Diagnoses Orde r Schedule EKG EKG Routine Chest pain One Time for 1 Occurrences starting 11/28/2022 until 11/28/2022 CONNECTED CONTINUOUS AMBULATORY MONITOR Holter Routine Chest pain Bradycardia Expected: 11/28/2022, Expires: 12/29/2023 Scheduled Procedures Name Priority Associated Diagnoses Date/Ti [...] as of this encounter Visit Diagnoses Diagnosis Bradycardia- Primary Other specified cardiac dysrhythmias Heart palpitations Palpitations Urticaria Urticaria, unspecified RLS (restless legs syndrome) Restless legs syndrome (RLS) Hyperlipemia, mixed Mixed hyperlipidemia Chest pain Chest pain, unspecified Other chest pain documented in this encounter Administered Medications Inactive Administered Medications - up to 3 most recent administrations Medication Order MAR Action Action Date Dose Rate Site adenosine 24 mcg/ml infusion for intracoronary 24 mcg, Intracoronary, PRN, Starting on Mon11/28/22 at 1135, Until Mon11/28/22 at 1334, To be administered in Cardiac Monitoring Tech intra-procedure only, Intra-Op New Bag 11/28/2022 11:43 AM EDT 120 mcg New Bag 11/28/2022 11:40 AM EDT 240 mcg atorvaSTATin (Lipitor) tab 80 mg 80 mg, Oral, ONCE, On Mon11/28/22 at 1045, For 1 dose, Pre-Op Given 11/28/2022 10:45 AM EDT 80 mg fentaNYL (PF) inj 50 mcg 50 mcg, IV Push, PRN Pain, Severe, Starting on Mon11/28/22 at 1107, Until Mon11/28/22 at 1306, For 2 hours, To be administered in Cardiac Monitoring Tech intra-procedure only When given IV Push its recommended that the dose be given over 3 to 5 minutes. , Intra-Op Given 11/28/2022 11:05 AM EDT 50 mcg hEParin inj 5,000 Units 5,000 Units, Intra-Arterial, PRN Other, Inadequate anticoagulation, Starting on Mon11/28/22 at 1108, Until Mon11/28/22 at 1115, For 1 dose, To be administered in Cardiac Monitoring Tech intra-procedure only , Intra-Op Given 11/28/2022 11:15 AM EDT 5,000 Units hEParin inj 5,000 Units 5,000 Units, IV Push, PRN Other, Anticoagulation not at goal, Starting on Mon11/28/22 at 1135, Until Mon11/28/22 at 1334, For 2 hours, To be administered in Cardiac Monitoring Tech intra-procedure., Intra-Op Given 11/28/2022 11:38 AM EDT 5,000 Units house antacid (Mi-Acid II) oral susp 15 mL 15 mL, Oral, Q6H PRN Indigestion, Starting on Mon11/28/22 at 1332, Until Mon11/28/22 at 1939, SHAKE WELL Given 11/28/2022 1:35 PM EDT 15 mL Ioversol (Optiray 350) 74 % inj 65 mL 65 mL, Intracoronary, ONCE, On Mon11/28/22 at 1230, For 1 dose, Intra-Op Given 11/28/2022 11:50 AM EDT 65 mL midazolam (Versed) 2 MG/2ML inj 1 mg 1 mg, IV Push, PRN Anxiety, Starting on Mon11/28/22 at 1107, Until Mon11/28/22 at 1306, For 2 hours, To be administered in Cardiac Monitoring Tech intra-procedure only, Intra-Op Given 11/28/2022 11:31 AM EDT 1 mg Given 11/28/2022 11:05 AM EDT 1 mg nitroglycerin (100 mcg/mL) inj 100 mcg 100 mcg, Intra-Arterial, PRN Other, arterial spasm, Starting on Mon11/28/22 at 1147, Until Mon11/28/22 at 1246, For 1 hour, To be administered in Cardiac Monitoring Tech intra-procedure only FOR INTRACORONARY OR INTRA-ARTERIAL ADMINISTRATION, Intra-Op Given 11/28/2022 11:57 AM EDT 100 mcg Given 11/28/2022 11:49 AM EDT 100 mcg Nitroglycerin (Nitrostat) sl tab 0.4 mg 0.4 mg, Sublingual, Q5 MINUTES, First dose on Mon11/28/22 at 1445, Last dose on Mon11/28/22 at 1455, For 3 doses, Hold for SBP <110. Given 11/28/2022 2:00 PM EDT 0.4 mg NSS infusion Intravenous, at 100 mL/hr, CONTINUOUS, Starting on Mon11/28/22 at 1045, Until Mon11/28/22 at 1939, Pre-Op New Bag 11/28/2022 10:45 AM EDT 100 mL/hr verapamil (Isoptin) inj 2.5 mg 2.5 mg, Intra-Arterial, PRN Other, arterial spasm, Starting on Mon11/28/22 at 1108, Until Mon11/28/22 at 1207, For 1 hour, To be administered in Cardiac Monitoring Tech intra-procedure only, Intra-Op Given 11/28/2022 11:15 AM EDT 2.5 mg documented in this encounter Active and Recently Administered Medications Times are shown in EDT. Scheduled Medication Order 11/26/2022 11/27/2022 11/28/2022 aspirin chew tab 324 mg 324 mg, Oral, ONCE, On Mon11/28/22 at 1045, For 1 dose, Pre-Op 1045 (Not Given - Pr ovider: Mirtha Neumann RN - Reason: Parameter(s) Not Met) atorvaSTATin (Lipitor) tab 80 mg (COMPLETED) 80 mg, Oral, ONCE, On Mon11/28/22 at 1045, For 1 dose, Pre-Op 1045 (Given - Provid er: Mirtha Neumann RN) Ioversol (Optiray 350) 74 % inj 65 mL (COMPLETED) 65 mL, Intracoronary, ONCE, On Mon11/28/22 at 1230, For 1 dose, Intra-Op 1150 (Given - Provid er: Jese Das, RT) Nitroglycerin (Nitrostat) sl tab 0.4 mg 0.4 mg, Sublingual, Q5 MINUTES, First dose on Mon11/28/22 at 1445, Last dose on Mon11/28/22 at 1455, For 3 doses, Hold for SBP <110. 1400 (Given - Provid er: Mirtha Neumann RN)1450 (Due)1455 (Due) Continuous Medication Order 11/26/2022 11/27/2022 11/28/2022 NSS infusion Intravenous, at 100 mL/hr, CONTINUOUS, Starting on Mon11/28/22 at 1045, Until Mon11/28/22 at 1939, Pre-Op 1045 (New Bag - Prov ider: Mirtha Neumann RN)1939 (Due: Stopped) PRN Medication Order 11/26/2022 11/27/2022 11/28/2022 adenosine 24 mcg/ml infusion for intracoronary 24 mcg, Intracoronary, PRN, Starting on Mon11/28/22 at 1135, Until Mon11/28/22 at 1334, To be administered in Cardiac Monitoring Tech intra-procedure only, Intra-Op 1140 (New Bag - Prov ider: Julia Hays RN - Comment: Per Dr. Sethi. Given by Dr. Montana)1143 (New Bag - Provider: Julia Hays RN - Comment: Given by Dr. Montana) fentaNYL (PF) inj 50 mcg 50 mcg, IV Push, PRN Pain, Severe, Starting on Mon11/28/22 at 1107, Until Mon11/28/22 at 1306, For 2 hours, To be administered in Cardiac Monitoring Tech intra-procedure only When given IV Push its recommended that the dose be given over 3 to 5 minutes. , Intra-Op 1105 (Given - Provid er: Julia Hays RN) hEParin inj 5,000 Units (COMPLETED) 5,000 Units, Intra-Arterial, PRN Other, Inadequate anticoagulation, Starting on Mon11/28/22 at 1108, Until Mon11/28/22 at 1115, For 1 dose, To be administered in Cardiac Monitoring Tech intra-procedure only , Intra-Op 1115 (Given - Provid er: Julia Hays RN - Comment: Given by Dr. Montana) hEParin inj 5,000 Units 5,000 Units, IV Push, PRN Other, Anticoagulation not at goal, Starting on Mon11/28/22 at 1135, Until Mon11/28/22 at 1334, For 2 hours, To be administered in Cardiac Monitoring Tech intra-procedure., Intra-Op 1138 (Given - Provid er: Julia Hays RN) house antacid (Mi-Acid II) oral susp 15 mL 15 mL, Oral, Q6H PRN Indigestion, Starting on Mon11/28/22 at 1332, Until Mon11/28/22 at 1939, SHAKE WELL 1335 (Given - Provid er: Mirtha Neumann RN) midazolam (Versed) 2 MG/2ML inj 1 mg 1 mg, IV Push, PRN Anxiety, Starting on Mon11/28/22 at 1107, Until Mon11/28/22 at 1306, For 2 hours, To be administered in Cardiac Monitoring Tech intra-procedure only, Intra-Op 1105 (Given - Provid er: Julia Hays RN)1131 (Given - Provider: Julia Hays RN) nitroglycerin (100 mcg/mL) inj 100 mcg 100 mcg, Intra-Arterial, PRN Other, arterial spasm, Starting on Mon11/28/22 at 1147, Until Mon11/28/22 at 1246, For 1 hour, To be administered in Cardiac Monitoring Tech intra-procedure only FOR INTRACORONARY OR INTRA-ARTERIAL ADMINISTRATION, Intra-Op 1149 (Given - Provid er: Julia Hays RN - Comment: Given by Dr. Montana)1157 (Given - Provider: Julia Hays RN) verapamil (Isoptin) inj 2.5 mg 2.5 mg, Intra-Arterial, PRN Other, arterial spasm, Starting on Mon11/28/22 at 1108, Until Mon11/28/22 at 1207, For 1 hour, To be administered in Cardiac Monitoring Tech intra-procedure only, Intra-Op 1115 (Given - Provid er: Julia Hays RN - Comment: Given by Dr. Montana) documented in this encounter Advance Directives Latest [...] and were consensually agreed upon. Care Teams Soil Field Technician Relationship Specialty Start Date End Date Nam Squires DO [address] [place] [address] PCP - General Family Medicine 12/02/19 documented as of this encounter
--- OUTSIDE RECORDS SUMMARY | 2023-04-01 23:34 | External Medical Summary | Summary of Care ---
Author Name Unknown Organization [facility] Address [address] [facility] [place] [address] Phone [phone] Care Team Providers Care Psychiatric Clinician Name Role Phone Nam Squires DO Primary Care Provider [phone] Reason for Visit * Reason Comments Dosage Adjustment In Person (Anticoag Cl inic) Diabetes Encounter Details Date Type Department Care Team Description 12/01/2022 Office Visit Pharmacy, [place] [address] [place] [address] [facility] [address] [place] [address] Type 2 diabetes mellitus with hemoglobin A1c goal of less than 7.0% ([facility])* Allergies Active Allergy Reactions Severity Noted Date [...] as of this encounter (statuses as of 12/01/2022) Medications Medication Sig Dispensed Refills Start Date End Date Status BD INSULIN SYRINGE ULTRAFINE 30G X 1/2" 0.3 ML MISC As directed 0 12/15/2014 Active Glucose Blood (TAYA CONTOUR NEXT TEST) STRPIndications:DM type 2, not at goal (HCC) Use to test blood sugar 6 times daily dx e11.9 540 Strip 3 01/29/2019 Active CPAP every night at bedtime. 0 Active Alex Carbonate ER 450 MG Oral Tablet Extended [...] prednisone 3 mL 0 10/15/2022 Active Pen Lily 32G X 5 MMIndications:Hyper glycemia Use as directed. Use with insulin pen 50 Each 0 10/15/2022 Active Nystatin 729385 UNIT/GM External Powder (Nystop)Indications :Tinea cruris Apply [...] Active rOPINIRole HCl 0.5 MG Oral Tablet (Requip)Indications :RLS (restless legs syndrome) Take 4 Tablets by [...] goal of less than 7.0% (HCC) Inject 10 Units under the skin daily. 15 mL 3 12/01/2022 Active Insulin Glargine Solostar 100 UNIT/ML Subcutaneous Solution Pen-injector (Lantus SoloStar)Indication s:Type 2 diabetes mellitus with hemoglobin A1c goal of less than 7.0% (HCC) Inject 10 Units under the skin every morning. 15 mL 1 12/01/2022 12/02/19 23 Discontinued documented as of this encounter (statuses as of 12/01/2022) Active Problems Problem Noted Date Other chest [...] . Secondary hyperparathyroidism, non-renal 04/01/2019 [facility] OTHER*[id number] 9 Mild persistent asthma without complicat ion [...] as of this encounter (statuses as of 12/01/2022) Resolved Problems Problem Noted Date Resolved Date [...] as of this encounter (statuses as of 12/01/2022) Immunizations Name Administration Dates Next Due Influenza, [...] as of this encounter Progress Notes * Jamison Garcia [facility] - 12/01/2022 9:26 AM EDT Agree with plan as documented. I was present the entirety of the visit today. Also note that patient has novolog at home to be used prn. With her using the david, she may end up using the novolog more often. Patient encouraged to keep MTM updated on her insulin/ blood sugar status between now and next visit. Jamison Garcia [facility] Clinical Pharmacist 12/01/2022, 9:26 AM * Sarah Tyler, Pharmacy Boiler Shop Supervisor - 12/01/2022 8:00 AM EDT Medication Therapy [facility] - Diabetes Management Progress Note Joyce Smith, identified by name and date of , is a 57 year old female being seen for diabetes management/education. Patient presents for return diabetic visit. DIABETES: Current diabetic medications: Ozempic 2 mg once weekly- stopped 2 months ago Novolog 2-3 units when over 200- not testing at home therefore rarely uses this Medication Injection Site: Abdomen Lifestyle: Diet: Pt admits to eating fried foods such as chicken nuggets. Also sugary beverages such as sweet Tea. Glucose Review/SMBG: Per memory: Fasting Today- 208 1-hour after she ate: Yesterday: 351- chocolate 400 Hypoglycemia: Does your blood sugar go below 70 mg/dL? No Hyperglycemia symptoms present: none Recent Labs Units 11/01/22 1240 08/31/22 1046 12/08/21 0840 HEMOGLOBIN A1C - [facility] % 7.2* 6.8* 6.9* Recent Labs Units 11/25/22 1054 11/24/22 0928 11/22/22 1658 ESTIMATED GLOMERULAR FILTRATION RATE - [facility] mL/min >90 >90 54* CREATININE - [facility] mg/dL 0.8 0.8 1.2* HYPERTENSION: Patient on ACEi/ARB: no, need updated UACR BP Readings from Last 3 Encounters: 11/28/22 119/60 11/25/22 124/66 11/01/22 136/80 Blood pressure at goal: yes HYPERLIPIDEMIA: Patient is taking moderate or high intensity statin: yes- Started Rosuvastatin 20 mg daily on 11/15 for elevated LDL HEALTH MAINTENANCE REVIEW: Health Maintenance Due Topic [...] Albumin/Creatinine Ratio 12/08/2022 Cervical Cancer Screening 01/19/2023 Therapy Considerations: - Jardiance: yeast infection - Metformin: constipation - Ozempic: GI upset ASSESSMENT & PLAN: ICD-10-CM 1. Type 2 diabetes mellitus with hemoglobin A1c goal of less than 7.0% (HCC) E11.9 BG Readings - Blood sugars uncontrolled. Patient's most recent A1c increased to above goal at 7.2 on 11/01. Pt states BS has been elevated since getting off steroid. Was only on it for 4 days back in August for a rash. Pt BS more likely elevated because pt stopped Ozempic 2 months ago and was not using any medications for her diabetes. Pt can benefit from CGM as pt does not like to test BS at home. Pt had david 2 in the past. Pt agreeable to start David 3. Patient feels comfortable setting up David on her own as her also has a David. Briefly educated pt on placement, removal, and how to interpret David. Medications - Reviewed current regimen, patient is not adherent to regimen. Pt stated GI upset with Ozempic max dose. She also stated her doctor told her to stop Ozmepic altogether due to Ses therefore pt has not taken it for 2 months. Pt was started on Novolog 2-3 units with BS over 200, however pt does not test at home therefore rarely uses it. Therefore, pt has not beenon any medications since last A1c. This is why her BS are running in the 200s+. Will start pt on Lantus 10 units once daily. Pt is agreeable to start. Educated pt on administration and SE. Diet, Exercise, Lifestyle - Did not review as much but pt admits to consuming fried foods and sweetened beverages. Patient is agreeable to CGM daily. Patient aware to contact clinic if any hypoglycemia before next visit. MEDICATION CHANGES: yes, see below; preferred pharmacy: [facility] Medications: START Lantus 10 units once daily START David 3 HEALTH MAINTENANCE INTERVENTIONS: Labs: due for UACR now and A1c 02/01/23 Immunizations: due for flu, COVID, shingrix, pneumo, and hep B series - did not have time during visit to discuss Foot Exam: due Eye Exam: Up to Date Annual Wellness Visit: N/A FOLLOW UP: Return to clinic in 6 weeks 01/20/2023 Dong LehmanD PGY1 Manager Integration 12/01/2022 9:17 AM documented in this encounter Miscellaneous Notes * Addendum Note - Jamison Garcia RPh - 12/01/2022 11:20 AM EDTAddended by: JAMISON GARCIA on: 12/01/2022 11:20 AM Modules accepted: Orders documented in this encounter Plan of Treatment Upcoming Encounters Date Type Specialty Care Team Description 12/07/2022 Office Visit Gastroenterology Bindu Beltran CRNP [address] [place] [address] 12/15/2022 Office Visit Sleep Disorders Shaniqua Spann DO [address] [place] [address] 12/29/2022 Office Visit Cardiology Jessica Baer PA-C [address] [place] [address] 01/20/2023 Office [facility] [address] [facility] [address] 05/24/2023 Office Visit Family Medicine Teodoro Galaviz, [address] [place] [address] 07/03/2023 Imaging Radiology Scheduled Orders Name Type Priority Associated Diagnoses Orde r Schedule HEMOGLOBIN A1C Lab Routine Type 2 diabetes mellitus with hemoglobin A1c goal of less than 7.0% (HCC) Expected: 02/01/2023, Expires: 12/02/2023 ALBUMIN / CREATININE RATIO, URINE Lab Routine Type 2 diabetes mellitus with hemoglobin A1c goal of less than 7.0% (HCC) Expected: 12/02/2022, Expires: 12/02/2023 Scheduled Procedures Name Priority Associated Diagnoses Date/Ti [...] 12/22/2018, 04/06/2018, Additional history exists Albumin/Creatinine Ratio 12/08/20222 022, 06/06/2020, 03/09/2017, Additional history exists Cervical [...] and were consensually agreed upon. Care Teams Psychiatric Clinician Relationship Specialty Start Date End Date Nam Squires DO [address] [place] [address] PCP - General Family Medicine 12/02/19 documented as of this encounter
--- OUTSIDE RECORDS SUMMARY | 2023-04-01 23:34 | External Medical Summary | Summary of Care ---
Author Name Unknown Organization [facility] Address [address] [facility] [place] [address] Phone [phone] Care Team Providers Care Aircraft Seat Upholsterer Name Role Phone Nam Squires DO Primary Care Provider [phone] Reason for Visit * Reason Comments Dosage Adjustment In Person (Anticoag Cl inic) Diabetes Encounter Details Date Type Department Care Team Description 12/01/2022 Office Visit Pharmacy, [place] [address] [place] [address] [facility] [address] [place] [address] Type 2 diabetes mellitus with hemoglobin A1c goal of less than 7.0% ([facility])* Allergies Active Allergy Reactions Severity Noted Date [...] CPAP every night at bedtime. 0 Active [place] Carbonate ER 450 MG Oral Tablet Extended [...] prednisone 3 mL 0 10/15/2022 Active Pen [place] 32G X 5 MMIndications:Hypergl ycemia Use as directed. Use with insulin pen 50 Each 0 10/15/2022 Active Nystatin 944071 UNIT/GM External Powder (Nystop)Indications:T inea cruris Apply [...] 15 minutes 25 Tablet 11 11/28/2022 Active Insulin Glargine Solostar 100 UNIT/ML Subcutaneous Solution Pen-injector (Lantus SoloStar)Indications: Type 2 diabetes mellitus with hemoglobin A1c goal of less than 7.0% (HCC) Inject 10 Units under the skin every morning. 15 mL 1 12/01/2022 Active FreeStyle David 3 SensorIndications:Typ e 2 diabetes mellitus with hemoglobin A1c goal of less than 7.0% ([facility]) Use as directed. Change every 14 days e11.9 2 Each 11 12/01/2022 Active documented as of this encounter [...] . Secondary hyperparathyroidism, non-renal 04/01/2019 [facility]EARCH OTHER*[id number] 9 Mild persistent asthma without complicat ion [...] 432 06/2008 PSG -- CPAP 10 cwp [facility] documented as of this encounter (statuses as [...] this encounter Progress Notes * Nelly Murphy, [facility] - 12/01/2022 9:26 AM EDT Agree with plan as documented. I was present the entirety of the visit today. Also note that patient has novolog at home to be used prn. With her using the david, she may end up using the novolog more often. Patient encouraged to keep MTM updated on her insulin/ blood sugar status between now and next visit. Nelly Murphy [facility] Clinical Pharmacist 12/01/2022, 9:26 AM * Sarah Tyler, Pharmacy Construction Tech - 12/01/2022 8:00 AM EDT Medication Therapy [...] MEDICATION CHANGES: yes, see below; preferred pharmacy: [facility] Medications: START Lantus 10 units once daily START David 3 HEALTH MAINTENANCE INTERVENTIONS: Labs: due for UACR now and A1c 02/01/23 Immunizations: due for flu, COVID, shingrix, pneumo, and hep B series - did not have time during visit to discuss Foot Exam: due Eye Exam: Up to Date Annual Wellness Visit: N/A FOLLOW UP: Return to clinic in 6 weeks 01/20/2023 Sarah Tyler PharmD PGY1 Plant Taxonomy Teacher 12/01/2022 9:17 AM documented in this encounter Plan of Treatment Upcoming Encounters Date Type Specialty Care Team Description 12/07/2022 Office Visit Gastroenterology Bindu Beltran CRNP [address] [place] [address] 12/15/2022 Office Visit Sleep Disorders Shaniqua Spann DO [address] [place] [address] 12/29/2022 Office Visit Cardiology Jessica Baer PA-C [address] [place] [address] [place] [address] 01/20/2023 Office Visit Pharmacy [facility] [address] [place], [place] [address] [address] 05/24/2023 Office Visit Family Medicine Teodoro Galaviz DO [address] [place] [address] 07/03/2023 Imaging Radiology Scheduled Orders Name Type [...] and were consensually agreed upon. Care Teams Aircraft Seat Upholsterer Relationship Specialty Start Date End Date Nam Squires DO [address] [place] [address] PCP - General Family Medicine 12/02/19 documented as of this encounter
--- OUTSIDE RECORDS SUMMARY | 2023-04-01 23:34 | External Medical Summary | Summary of Care ---
Author Name Unknown Organization [facility] Address [address] [facility] [place] [address] Phone [phone] Care Team Providers Care Handling Tech Name Role Phone Nam Squires DO Primary Care Provider Reason for Referral * Evaluate & Treat - Unlimited Visits (Within 10 days (routine)) - Authorized Specialty Diagnoses / Procedures Referred By Contact Referred To Contact GI NUTRITION/IM / Gastroenterology Diagnoses History of gastric bypass Bindu Beltran CRNP [address] [place] [address] Referral ID Status Reason Start Date Expiration Date Visits Requested Visits Authorized [id number] Authorized Specialty Services Required 12/07/2022 1 1 Question Answer Referral Priority Within 10 days (routine) For what condition is the patient being seen? Other Comments Hx of RYGB, get re-established Reason for Visit * Reason Comments Follow Up S/P gastric bypass, 2-3 month follow up, abd pain, nausea, dark stools * Evaluate & Treat - Unlimited Visits (Within 10 days (routine)) - Authorized Specialty Diagnoses / Procedures Referred By Gustavo nelson Referred To Contact Gastroenterology Diagnoses Gastroesophageal reflux disease without esophagitis Nam Squires DO [address] [place], [place] [address] Referral ID Status Reason Start Date Expiration Date Visits Requested Visits Authorized [id number] Authorized Specialty Services Required 08/30/[phone] Encounter Details Date Type Department Care Team Description 12/07/2022 Office Visit Gastroenterology, [facility] [address] [place] [address] Bindu Beltran CRNP [address] [place] [address] Fatty liver*; History of gastric bypass Allergies Active Allergy Reactions Severity Noted Date [...] as of this encounter (statuses as of 12/07/2022) Medications Medication Sig Dispensed Refills Start Date End Date Status BD INSULIN SYRINGE ULTRAFINE 30G X 1/2" 0.3 ML MISC As directed 0 12/15/2014 Active Glucose Blood (TAYA CONTOUR NEXT TEST) STRPIndications:DM type 2, not at goal (HCC) Use to test blood sugar 6 times daily dx e11.9 540 Strip 3 01/29/2019 Active CPAP every night at bedtime. 0 Active [place] Carbonate ER 450 MG Oral Tablet Extended [...] prednisone 3 mL 0 10/15/2022 Active Pen [place] 32G X 5 MMIndications:Hypergl ycemia Use as directed. Use with insulin pen 50 Each 0 10/15/2022 Active Nystatin 917405 UNIT/GM External Powder (Nystop)Indications:T inea cruris Apply [...] 14 days e11.9 2 Each 12/01/2022 Active Insulin Glargine Solostar 100 UNIT/ML Subcutaneous Solution Pen-injector (Basaglar Aimee)Indications:T ype 2 diabetes mellitus with hemoglobin A1c [...] as of this encounter (statuses as of 12/07/2022) Active Problems Problem Noted Date Other chest [...] . Secondary hyperparathyroidism, non-renal 04/01/2019 [facility] OTHER*[id number] 9 Mild persistent asthma without complicat ion [...] as of this encounter (statuses as of 12/07/2022) Resolved Problems Problem Noted Date Resolved Date [...] as of this encounter (statuses as of 12/07/2022) Immunizations Name Administration Dates Next Due Influenza, [...] Sign Reading Time Taken Comments Blood Pressure 142/64 12/07/2022 10:12 AM EDT Pulse 66 12/07/2022 10:12 AM EDT Temperature 36.4 C (97.6 F) 12/07/2022 10:12 AM E DT Respiratory Rate - - Oxygen Saturation 98% 12/07/2022 10:12 AM EDT Inhaled Oxygen Concentration - - Weight 89 kg (196 lb 3.2 oz) 12/07/2022 10:12 AM EDT Height - - Body Mass Index 33.68 10/13/2022 6:11 PM EDT documented in this [...] of this encounter Progress Notes * BETTY Love - 12/07/2022 10:30 AM EDT DATE OF SERVICE: 12/07/2022 REFERRING PHYSICIAN: Nam Squires DO CC: follow up Office Visit 12/07/2022 : Stopped Ozempic. Feeling better. She notes she started different therapy for her DM. She notes she wants to try the Ozempic again but is fearful of the side effects. Only concern now is gas she has. Align and Gas- Ex do not help. No abd pain. No nausea, vomiting. Tolerating PO intake. Bowels moving okay. Good days and bad days. Has incomplete evacuation from time to time. No fever, chills, CP, SOB, No NSAIDs No ETOH No tobacco Coffee, tea daily No steroids LB 2020: A. Council liver, wedge biopsy: Mild steatosis Mild centrilobular fibrosis NON-ALCOHOLIC FATTY LIVER DISEASE (NAFLD) Steatosis (0-3): 1 Mild 5-33% Lobular Inflammation (0-3): 1 Mild <2 foci/200x Hepatocyte Ballooning (0-2): 0 None NAFLD Activity Score (MU): 2 out of 8 NAFLD Fibrosis Stage (0-4): 1A Mild 'delicate', zone 3, perisinusoidal fibrosis CTAP 2022: . Very minimal wall prominence rectosigmoid colon. In the appropriate clinical setting could represent minimal colitis. Changes of gastric bypass. Colonoscopy 2022: The entire examined colon is normal on direct and retroflexion views. - No specimens collected. EGD 2022: Normal esophagus. - Gastric bypass with a normal-sized pouch and intact staple line. Gastrojejunal anastomosis characterized by healthy appearing mucosa. - Normal examined efferent and afferent jejunum. - No specimens collected. EGD 2021: - There was no retained food or fluid in the esophagus. There was a small gastric pouch, filled with semi solid food. There was no bezoaar. The gastro-enteric anastamosis was unremarkable, without stricture or ulcer. The jejunum was unremarkable. I extracted some food out with a net, and washed the remaining food out of the gastric pouch using lavage EGD 2021: Normal esophagus. - Z-line regular. - Gastric bypass with a normal-sized pouch. Biopsied. - Normal examined small intestine. EGD 2021:Normal mucosa was found in the entire esophagus. - Z-line regular, 39 cm from the incisors. - Gastric bypass with a pouch 6 cm in length and intact staple line. Gastrojejunal anastomosis characterized by healthy appearing mucosa. - No specimens collected. Colonoscopy 2020: Hemorrhoids found on perianal exam. - Diverticulosis in the sigmoid colon. - The examination was otherwise normal on direct and retroflexion views. - No specimens collected. Family history of GI malignancy: dad with esophageal CA, brother with esophageal CA Past Medical History: Diagnosis Date Adult-onset Still's [...] effect Restless legs syndrome Secondary hyperparathyroidism, non-renal ([facility]) 04/01/2019 Sleep apnea on CPAP Sleep apnea, obstructive Status post total bilateral knee replacement 07/17/2016 Type 2 diabetes mellitus with hemoglobin A1c goal of less than 7.0% ([facility]) 01/28/2005 Per Diabetes Taxonomy. ICD-10 update of inactive term Type II diabetes mellitus with neurological manifestations ([facility]) 04/19/2019 Vitamin D deficiency 11/22/2011 = 17.9 [...] Diabetes Niece type 1 COPD Brother SMOKER Past Surgical History: Procedure Laterality Date ARTHROPLASTY KNEE TOTAL Bilateral 11/26/2010 Dr Sarabia-right , left and right knee replacement COLONOSCOPY, DIAGNOSTIC (RECTUM) 2009 COLONOSCOPY, DIAGNOSTIC (RECTUM) 11/10/2020 diverticulosis, repeat 10 yrs / COLONOSCOPY FLEXIBLE PROXIMAL DIAGNOSTIC performed by Chun Bravo MD at ENDOSCOPY [facility] COLONOSCOPY, DIAGNOSTIC (RECTUM) 10/06/2022 COLONOSCOPY FLEXIBLE PROXIMAL DIAGNOSTIC performed by Chun Bravo MD at [facility] DILATION AND CURETTAGE (D&C) N/A 09/16/2016 DILATION AND CURETTAGE performed by Moses Taylor DO [place] [facility] [place]GD, FLEXIBLE, DIAGNOSTIC 2009 EGD, FLEXIBLE, DIAGNOSTIC 10/25/2017 benign fundic gland polyp, acid reflux/[facility] EGD, FLEXIBLE, DIAGNOSTIC N/A 04/11/2019 ESOPHAGOGASTRODUODENOSCOPY (EGD), FLEXIBLE, TRANSORAL, DIAGNOSTIC performed by Escobar Leon [facility] [place] [facility] [place]GD, FLEXIBLE, DIAGNOSTIC N/A 07/20/2020 ESOPHAGOGASTRODUODENOSCOPY (EGD), FLEXIBLE, TRANSORAL, DIAGNOSTIC performed by Brendon Berg DO [place] [facility] [place]GD, FLEXIBLE, DIAGNOSTIC N/A 02/03/2021 ESOPHAGOGASTRODUODENOSCOPY (EGD), FLEXIBLE, TRANSORAL, DIAGNOSTIC performed by Escobar Leon MDa [place] [facility] [place]GD, FLEXIBLE, DIAGNOSTIC N/A 03/26/2021 ESOPHAGOGASTRODUODENOSCOPY (EGD), FLEXIBLE, TRANSORAL, DIAGNOSTIC performed by Escobar Leon MDa [place] [facility] [place]GD, FLEXIBLE, DIAGNOSTIC 06/09/2021 normal bx / ESOPHAGOGASTRODUODENOSCOPY (EGD), FLEXIBLE, TRANSORAL, DIAGNOSTIC performed by Carlotta Duke MD at ENDOSCOPY [facility] EGD, FLEXIBLE, DIAGNOSTIC 11/06/2021 Gastroparesis / INPT [facility] EGD, FLEXIBLE, DIAGNOSTIC 10/06/2022 ESOPHAGOGASTRODUODENOSCOPY (EGD), FLEXIBLE, TRANSORAL, DIAGNOSTIC performed by Chun Bravo MD at END[facility]COPY [facility] EGD, W/ENDOSCOPIC US N/A 06/12/2018 ESOPHAGOGASTRODUODENOSCOPY (EGD), FLEXIBLE, TRANSORAL, ENDOSCOPIC ULTRASOUND performed by Hema Pino DO [place] [facility] ESOPH FUNCT/REFLUX TEST,MUCOSAL PH 07/20/2020 GASTRO REFLUX TEST WITH MUCOSAL TELEMETRY PH ELECTRODE performed by Brendon Berg DO at [facility] INSERT INTRAUTERINE DEVICE (IUD) N/A 09/16/2016 INSERTION OF INTRAUTERINE DEVICE performed by Moses Taylor DO at [facility] KNEE ARTHROSCOPY/SURGERY meniscus tear LAPAROSCOPE PROCEDURE, LIVER N/A 04/11/2019 UNLISTED LAPAROSCOPIC PROCEDURE LIVER performed by Escobar Leon MD at [facility] LAPAROSCOPIC GASTRIC BYPASS/GUCCI-EN-Y N/A 04/11/2019 LAPAROSCOPIC GASTRIC RESTRICTIVE BYPASS GUCCI EN Y performed by Escobar Leon MD at [facility] LAPAROSCOPY; CHOLECYSTECTOMY N/A 04/11/2019 LAPAROSCOPIC CHOLECYSTECTOMY performed by Escobar Leon MD at [facility] LAPAROSCOPY; CHOLECYSTECTOMY N/A 03/26/2021 LAPAROSCOPIC CHOLECYSTECTOMY performed by Escobar Leon MD at [facility] PARAESOPHAGEAL HERNIA REPAIR, LAP W/ MESH N/A 03/26/2021 LAPAROSCOPIC PARAESOPHAGEAL HERNIA REPAIR W/MESH performed by Escobar Leon MD at [facility] PARAESOPHAGEAL HERNIA REPAIR, LAP W/O MESH N/A 03/26/2021 LAPAROSCOPIC PARAESOPHAGEAL HERNIA REPAIR WO/ MESH performed by Escobar Leon MD at [facility] TRANSECTION VAGUS NRV,TRUNCAL Bilateral 03/26/2021 LAPAROSCOPIC TRANSECTION VAGUS NERVES TRUNCAL performed by Escobar Leon MD [place] [facility] Social History Tobacco Use Smoking status: Never Smokeless tobacco: Never Vaping Use Vaping Use: Never used Substance Use Topics Alcohol use: No Drug use: No Review of patient's allergies indicates: Allergen Reactions [...] Strip 3 CPAP every night at bedtime. [place] Carbonate ER 450 MG Oral Tablet Extended [...] while on prednisone 3 mL 0 Pen [place] 32G X 5 MM Use as directed. Use with insulin pen 50 Each 0 Nystatin 576944 UNIT/GM External Powder (Nystop) Apply topically to [...] week if symptoms persist. 2 Tablet 0 No current facility-administered medications for this visit. REVIEW OF SYSTEMS: All other findings negative except as noted in HPI. EXAM: BP 142/64 | Pulse 66 | Temp 36.4 C (97.6 F) | Wt 89 kg (196 lb 3.2 oz) | SpO2 98% | BMI 33.68 kg/m | BSA 2 m GENERAL: Well developed and well nourished in no acute distress. SKIN: No rashes, ulcers, jaundice or spider angiomata. HEENT: Normocephalic, sclera clear, pharynx normal. NECK: Supple, no lymphadenopathy. LUNGS: Clear to auscultation bilaterally, no respiratory distress or accessory muscles used. HEART: Regular rate & rhythm, no murmurs and no gallops. ABDOMEN: Normal bowel sounds, soft and nontender, no masses or hepatosplenomegaly. EXTREMITIES: No palmar erythema, no ankle edema, no skin discoloration, no clubbing, no cyanosis. NEURO: No lateralizing findings. Sensory/Motor grossly normal. DIAGNOSTIC TEST: Hepatic function panel Plt Pt inr Us elastography parenchyma/organ Us abdomen limited ASSESSMENT AND PLAN: 57 year old female with history of T2DM, diabetic neuropathy, retinopathy, hypothyroidism, hyperlipidemia, bipolar disorder, COLTEN on CPAP, asthma, diet-controlled hypertension, orless who underwent elective laparoscopic hysterectomy, s/p RYGB w/ LB in 2019 and Laparoscopic repair of hiatal hernia, bilateral truncal Vagotomy, Toupet fundoplication, Cholecystectomy, Laparoscopic Bilateral Transversus Abdominus Plane Block in 2021 - History of fatty liver - NAFLD on bx - Fibroscan - Yearly LFTs and ABD US - Dietary and lifestyle changes - ETOH avoidance - No NSAIDs - Start Pantoprazole 40 mg once - Attempt to add fiber - ED for emergencies - Please call with any questions or concerns RETURN TO CLINIC: yearly I spent a total of 30 minutes on the date of service in review of patient's record, and previously obtained information in person and appropriate medical visit, discussion and education of plan, withpatient and/or caregiver, placing orders for tests/referral/procedures as medically necessary and documentation of pertinent clinical information in patient's medical records for their visit today. BETTY King 12/07/2022 10:41 AM documented in this encounter Nursing Notes * Amie Sethi LPN - 12/07/2022 10:14 AM EDT Patient identified by name and date of . Chief Complaint Patient presents with Follow Up S/P gastric bypass, 2-3 month follow up, abd pain, nausea, dark stools Pt stating that she had gone off the ozempic and most of her issues got better. Pt is struggling with her weight but very disappointed with her care from before with the previous [facility] team. I encouraged her to try and see this new team we have - she was debating on seeing them. Pt asking for a referral to see them again. documented in this encounter Plan of Treatment Upcoming Encounters Date Type Specialty Care Team Description 12/15/2022 Office Visit Sleep Disorders Shaniqua Spann, DO [address] [place] [address] 12/19/2022 Office Visit Family Teodoro Painter DO [address] [place] [address] 12/29/2022 Office Visit Cardiology Jessica Baer PA-C [address] [place] [address] [place] [address] 01/20/2023 Office Visit Pharmacy [facility] [address] [place], [place] [address] [address] 05/24/2023 Office Visit Family Medicine Teodoro Galaviz, [address] [place] [address] 07/03/2023 Imaging Radiology Scheduled Orders Name Type Priority Associated Diagnoses Orde r Schedule HEPATIC FUNCTION PANEL Lab Routine Fatty liver Expected: 12/07/2022, Expires: 12/08/2023 PLT Lab Routine Fatty liver Expected: 12/07/2022, Expires: 12/08/2023 PT INR Lab Routine Fatty liver Expected: 12/07/2022, Expires: 12/08/2023 US ELASTOGRAPHY PARENCHYMA/ORGAN Medical Imaging Routine Fatty liver Expected: 12/07/2022, Expires: 01/07/2024 US ABDOMEN LIMITED Medical Imaging Routine Fatty liver Expected: 12/07/2022, Expires: 01/07/2024 Scheduled Procedures Name Priority Associated Diagnoses Date/Ti me COLONOSCOPY FLEXIBLE PROXIMA L DIAGNOSTIC Recall Special screening for malignant neoplasms, colon Scheduled Referrals Name Type Priority Associated Diagnoses Orde r Schedule GI NUTRITION REFERRAL OP Referral Within 10 days (routine) History of gastric bypass Ordered: 12/07/2022 Health Maintenance Due Date Last Done Comments [...] as of this encounter Visit Diagnoses Diagnosis Fatty liver- Primary Other chronic nonalcoholic liver disease History of gastric bypass Bariatric surgery status documented in this encounter [...] and were consensually agreed upon. Care Teams Handling Tech Relationship Specialty Start Date End Date Nam Squires DO [address] [place] [address] PCP - General Family Medicine 12/02/19 documented as of this encounter
--- OUTSIDE RECORDS SUMMARY | 2023-04-01 23:34 | External Medical Summary | Summary of Care ---
Author Name Unknown Organization [facility] Address [address] [facility] [place] [address] Phone [phone] Care Team Providers Care Ship Boss Name Role Phone Nam Squires DO Primary Care Provider Reason for Visit * Reason Onset Date Comments Fax Refill 11/28/2022 Encounter Details Date Type Department Care Team Description 11/28/2022 Telephone Cardiology, [facility] [address] [place] [address] Dianna Alcala CRNP [address] [place] [address] Fax Refill Allergies Active Allergy Reactions Severity Noted Date [...] as of this encounter (statuses as of 11/28/2022) Medications Medication Sig Dispensed Refills Start Date End Date Status Furosemide 20 MG Oral Tablet (Lasix)Indications: Bilateral leg edema,HTN, goal below 140/90 Take 1 Tablet by mouth in the morning. 90 Tablet 3 3 Active BD INSULIN SYRINGE ULTRAFINE 30G X 1/2" 0.3 ML MISC As directed 0 5 Suspended Glucose Blood (SoFits.Me CONTOUR NEXT TEST) STRPIndications:DM type 2, not at goal ([facility]) Use to test blood sugar 6 times daily dx e11.9 540 Strip 3 9 Suspended Additional Information CPAP every night at bedtime. 0 Suspended [place] Carbonate ER 450 MG Oral Tablet Extended Release (Lithobid ER) Take 1 Tablet by mouth in the morning. In the morning.. 0 3 Suspended rOPINIRole HCl 0.5 MG Oral Tablet (Requip)Indications :RLS (restless legs syndrome) Take 1 Tablet by mouth in the morning and 1 Tablet at noon and 1 Tablet before bedtime. 90 Tablet 3 3 Suspended Meclizine HCl 25 MG Oral Tablet (Antivert)Indicatio ns:Vertigo Take 1 Tablet by mouth 3 times a day as needed for Dizziness. 30 Tablet 1 3 Suspended Additional Information traMADol HCl 50 MG Oral Tablet (Ultram)Indications :DDD (degenerative disc disease), cervical,Thoracic degenerative disc disease,Lumbar degenerative disc disease,Primary osteoarthritis of left foot Take 1 Tablet by mouth every 6 hours as needed for Pain, Severe. 30 Tablet 0 3 Suspended Additional Information Syringe 25G X 1" 3 MLIndications:B12 deficiency Use as directed for B12 injection once monthly 50 Each 0 3 Suspended Additional Information Triamcinolone Acetonide 0.1 % External Cream (Aristocort)Indicat ions:Intrinsic atopic dermatitis Apply topically to affected area 2 times a day. To affected area arm and leg. 60 g 5 3 Suspended Additional Information Cyanocobalamin 1000 MCG/ML Injection Solution (Cyanocobalamin)Ind ications:B12 deficiency INJECT DIRECTED 1,000 MCG EVERY 30 DAYS . 3 mL 3 3 Suspended Additional Information Diclofenac Sodium 1 % External Gel Apply topically to affected area. Apply to effected areas 0 Suspended rOPINIRole HCl 1 MG Oral Tablet (Requip) Take 2 Tablets by mouth every evening. 180 Tablet 1 3 Suspended Additional Information Vitamin C Adult Gummies 125 MG Oral Tablet Chewable (Ascorbic Acid) Take by mouth. 0 Suspe nded Triamcinolone Acetonide 0.5 % External Cream (Aristocort) Apply topically to affected area 2 times a day. To affected area. 80 g 0 3 Suspended Additional Information NovoLOG FlexPen 100 UNIT/ML Subcutaneous Solution Pen-injector (insulin aspart)Indications: Hyperglycemia Inject 3 units with meals if blood sugar greater than 200 while on prednisone 3 mL 0 3 Suspended Additional Information Pen [place] 32G X 5 MMIndications:Hyper glycemia Use as directed. Use with insulin pen 50 Each 0 3 Suspended Additional Information Nystatin 015481 UNIT/GM External Powder (Nystop)Indications :Tinea cruris Apply topically to affected area 3 times a day. Apply to affected area skin folds 60 g 0 3 Suspended Additional Information Loratadine 10 MG Oral Tablet (Claritin)Indicatio ns:Urticaria Take 1 Tablet by mouth in the morning. 30 Tablet 5 3 Suspended Additional Information Patient taking differently:10 mg OralDAILY PRN, Reported on 11/01/2022 Levothyroxine Sodium 125 MCG Oral Tablet (Levoxyl)Indication s:Acquired hypothyroidism Take 1 Tablet by mouth in the morning. (at least 30 min prior to breakfast or other meds). 30 Tablet 11 3 Suspended Additional Information Pantoprazole Sodium 40 MG Oral Tablet Delayed Release (Protonix)Indicatio ns:Gastroesophageal reflux disease without esophagitis Take 1 Tablet by mouth in the morning. 90 Tablet 3 3 Suspended Additional Information Aspirin 81 MG Oral Tablet Delayed ReleaseIndications: Chest tightness Take 1 Tablet by mouth in the morning. 0 3 Suspended Additional Information Rosuvastatin Calcium 10 MG Oral Tablet (Crestor)Indication s:Hyperlipemia, mixed Take 1 Tablet by mouth in the morning. 30 Tablet 11 3 Suspended Additional Information Furosemide 20 MG Oral Tablet (Lasix) Take 1 Tablet by mouth in the morning. 30 Tablet 5 3 11/29/19 23 Discontinued( Refill) documented as of this encounter (statuses as of 11/28/2022) Active Problems Problem Noted Date Other chest [...] . Secondary hyperparathyroidism, non-renal 04/01/2019 [facility] OTHER*[id number] 9 Mild persistent asthma without complicat ion [...] as of this encounter (statuses as of 11/28/2022) Resolved Problems Problem Noted Date Resolved Date [...] as of this encounter (statuses as of 11/28/2022) Immunizations Name Administration Dates Next Due Influenza, Whole Virus 12/11/2009 Pneumococcal Polysaccharide PPV23 (Pneumovax) 04/13/2017 Seasonal Influenza, PF, 6 mo ns & Above, IM , (Flulaval) 12/02/2019,12/22/2018,04/06/2018,04/13 Seasonal Influenza, Split, I IV3, No [...] encounter Miscellaneous Notes * Telephone Encounter - Amisha Farr CMA - 11/28/2022 9:45 AM EDT Request for 90-day Rx. documented in this encounter Plan of Treatment Upcoming Encounters Date Type Specialty Care Team Description 12/01/2022 [facility] Visit [facility] [address] [address] 12/07/2022 Office Visit Gastroenterology Bindu Beltran CRNP [address] [place] [address] 12/15/2022 Office Visit Sleep Disorders Shaniqua Spann, [address] [place] [address] 01/20/2023 Office Visit [facility] [address] [facility] [address] 05/24/2023 Office Visit Family Medicine Teodoro Galaviz, [address] [place] [address] 07/03/2023 Imaging Radiology Scheduled Procedures Name Priority Associated Diagnoses Date/Ti me CORONARY ANGIOGRAPHY W/LEFT HEART CATH Dyspnea, unspecified type 11/28/2022 10:55 AM EDT COLONOSCOPY FLEXIBLE PROXIMAL DIAGNOSTIC Recall Special screening for malignant neoplasms, [...] as of this encounter Visit Diagnoses Diagnosis Bilateral leg edema- Primary Edema HTN, goal below 140/90 Unspecified essential hypertension documented in this encounter Advance Directives Latest [...] and were consensually agreed upon. Care Teams Ship Boss Relationship Specialty Start Date End Date Nam Squires DO [address] [place] [address] PCP - General Family Medicine 12/02/19 documented as of this encounter
--- OUTSIDE RECORDS SUMMARY | 2023-04-01 23:34 | External Medical Summary | Summary of Care ---
Author Name Unknown Organization [facility] Address [address] [facility] [place] [address] Phone [phone] Care Team Providers Care Milk Bottling Machine Operator Name Role Phone Nam Squires DO Primary Care Provider [phone] Reason for Referral * Evaluate & Treat - Unlimited Visits (Within 10 days (routine)) - Authorized Specialty Diagnoses / Procedures Referred By Contact Referred To Contact GI NUTRITION/IM / Gastroenterology Diagnoses History of gastric bypass Bindu Beltran CRNP [address] [place] [address] Referral ID Status Reason Start Date Expiration Date Visits Requested Visits Authorized [id number] Authorized Specialty Services Required 12/07/2022 1 1 [...] DO [address] [place] [address] Referral ID Status Reason Start Date Expiration Date Visits Requested Visits Authorized [id number] Authorized Specialty Services Required 08/30/[phone] Encounter Details Date Type Department Care Team Description 12/07/2022 Office Visit Gastroenterology, [facility] [address] [place] [address] Bindu Beltran CRNP [address] [place] [address] Fatty liver*; History of gastric bypass Allergies [...] CPAP every night at bedtime. 0 Active [place] Carbonate ER 450 MG Oral Tablet [...] prednisone 3 mL 0 10/15/2022 Active Pen [place] 32G X 5 MMIndications:Hypergl ycemia Use as directed. Use with insulin pen 50 Each 0 10/15/2022 Active Nystatin 839773 UNIT/GM External Powder (Nystop)Indications:T inea cruris Apply [...] . Secondary hyperparathyroidism, non-renal 04/01/2019 [facility] OTHER*[id number] 9 Mild persistent asthma without complicat ion [...] tea daily No steroids LB 2020: A. [place] liver, wedge biopsy: Mild steatosis Mild centrilobular [...] allergic rhinitis 06/14/2011 Bipolar disorder ([facility]) sees Dr. Dyer Bipolar I disorder, most recent episode depressed, mild ([facility]) 01/28/[address] Dyer BMI 40.0-44.9, adult ([facility]) 06/07/2020 Bunion of great toe of [...] type 2, not at goal ([facility]) 01/29/2014 = 8.6 Dyslipidemia 02/26/2009 Per [...] legs syndrome Secondary hyperparathyroidism, non-renal ([facility]) 04/01/2019 Sleep apnea on CPAP Sleep apnea, obstructive Status post total bilateral knee replacement 07/17/2016 Type 2 diabetes mellitus with hemoglobin A1c goal of less than 7.0% ([facility]) 01/28/2005 Per Diabetes Taxonomy. ICD-10 update of inactive term Type II diabetes mellitus with neurological manifestations ([facility]) 04/19/2019 Vitamin D deficiency 11/22/2011 = [...] performed by Chun Bravo MD at ENDOSCOPY [facility] COLONOSCOPY, DIAGNOSTIC (RECTUM) 10/06/2022 COLONOSCOPY FLEXIBLE PROXIMAL DIAGNOSTIC performed by Chun Bravo MD at ENDOSCOPY [facility] DILATION AND CURETTAGE (D&C) N/A 09/16/2016 DILATION AND CURETTAGE performed by Moses Taylor DO at OR [facility] EGD, FLEXIBLE, DIAGNOSTIC 2009 EGD, FLEXIBLE, DIAGNOSTIC 10/25/2017 benign fundic gland polyp, acid reflux/[facility] EGD, FLEXIBLE, DIAGNOSTIC N/A 04/11/2019 ESOPHAGOGASTRODUODENOSCOPY (EGD), FLEXIBLE, TRANSORAL, DIAGNOSTIC performed by Escobar Leon [facility] OR [facility] EGD, FLEXIBLE, DIAGNOSTIC N/A 07/20/2020 ESOPHAGOGASTRODUODENOSCOPY (EGD), FLEXIBLE, TRANSORAL, DIAGNOSTIC performed by Brendon Berg DO at ENDOSCOPY [facility] EGD, FLEXIBLE, DIAGNOSTIC N/A 02/03/2021 ESOPHAGOGASTRODUODENOSCOPY (EGD), FLEXIBLE, TRANSORAL, DIAGNOSTIC performed by Escobar Leon MDa OR [facility] EGD, FLEXIBLE, DIAGNOSTIC N/A 03/26/2021 ESOPHAGOGASTRODUODENOSCOPY (EGD), FLEXIBLE, TRANSORAL, DIAGNOSTIC performed by Escobar Leon MDa OR [facility] EGD, FLEXIBLE, DIAGNOSTIC 06/09/2021 normal bx / ESOPHAGOGASTRODUODENOSCOPY (EGD), FLEXIBLE, TRANSORAL, DIAGNOSTIC performed by Carlotta Duke MD at ENDOSCOPY [facility] EGD, FLEXIBLE, DIAGNOSTIC 11/06/2021 Gastroparesis / INPT [facility] EGD, FLEXIBLE, DIAGNOSTIC 10/06/2022 ESOPHAGOGASTRODUODENOSCOPY (EGD), FLEXIBLE, TRANSORAL, DIAGNOSTIC performed by Chun Bravo MD at ENDOSCOPY [facility] EGD, W/ENDOSCOPIC US N/A 06/12/2018 ESOPHAGOGASTRODUODENOSCOPY (EGD), FLEXIBLE, TRANSORAL, ENDOSCOPIC ULTRASOUND performed by Hema Pino DO at ENDOSCOPY [facility] ESOPH FUNCT/REFLUX TEST,MUCOSAL PH 07/20/2020 GASTRO REFLUX TEST WITH MUCOSAL TELEMETRY PH ELECTRODE performed by Brnedon Berg DO at [facility] INSERT INTRAUTERINE DEVICE (IUD) N/A 09/16/2016 INSERTION OF INTRAUTERINE DEVICE performed by Moses Taylor DO at [facility] KNEE ARTHROSCOPY/SURGERY meniscus tear LAPAROSCOPE PROCEDURE, LIVER N/A 04/11/2019 UNLISTED LAPAROSCOPIC PROCEDURE LIVER performed by Escobar Leon MD at [facility] LAPAROSCOPIC GASTRIC BYPASS/GUCCI-EN-Y N/A 04/11/2019 LAPAROSCOPIC GASTRIC RESTRICTIVE BYPASS GUCCI EN Y performed by Escobar Leon MD at [facility] LAPAROSCOPY; CHOLECYSTECTOMY N/A 04/11/2019 LAPAROSCOPIC CHOLECYSTECTOMY performed by Escobar Leon MD at [facility] LAPAROSCOPY; CHOLECYSTECTOMY N/A 03/26/2021 LAPAROSCOPIC CHOLECYSTECTOMY performed by Escobar Leon MD at [facility] PARAESOPHAGEAL HERNIA REPAIR, LAP W/ MESH N/A 03/26/2021 LAPAROSCOPIC PARAESOPHAGEAL HERNIA REPAIR W/MESH performed by Escobar Leon MD at [facility] PARAESOPHAGEAL HERNIA REPAIR, LAP W/O MESH N/A 03/26/2021 LAPAROSCOPIC PARAESOPHAGEAL HERNIA REPAIR WO/ MESH performed by Escobar Leon MD at [facility] TRANSECTION VAGUS NRV,TRUNCAL Bilateral 03/26/2021 LAPAROSCOPIC TRANSECTION VAGUS NERVES TRUNCAL performed by Escobar Leon MD at OR [facility] Social History Tobacco Use Smoking status: Never [...] Strip 3 CPAP every night at bedtime. [place] Carbonate ER 450 MG Oral Tablet [...] while on prednisone 3 mL 0 Pen [place] 32G X 5 MM Use as directed. Use with insulin pen 50 Each 0 Nystatin 899976 UNIT/GM External Powder (Nystop) Apply topically to [...] Spann, DO [address] [place] [address] 12/19/2022 Office Visit Family Medicine Teodoro Galaviz DO [address] [place] [address] 12/29/2022 Office Visit Cardiology Jessica Baer PA-C [address] [place] [address] [place] [address] 01/04/2023 Office Visit Gastroenterology Destiny De Leon PA-C [address] [place] [address] 01/20/2023 Office Visit Pharmacy [place], [address] [address] 05/24/2023 Office Visit Family Medicine Teodoro Galaviz, DO [address] [place] [address] 07/03/2023 Imaging Radiology Scheduled Orders Name Type [...] and were consensually agreed upon. Care Teams Milk Bottling Machine Operator Relationship Specialty Start Date End Date Nam Squires DO [address] [place] [address] PCP - General Family Medicine 12/02/19 documented as of this encounter
--- OUTSIDE RECORDS SUMMARY | 2023-04-01 23:34 | External Medical Summary | Summary of Care ---
Author Name Unknown Organization [facility] Address [address] [facility] [place] [address] Phone [phone] Care Team Providers Care Setter Juice Packaging Machines Name Role Phone Nam Squires DO Primary Care Provider Reason for Referral * Evaluate & Treat - Unlimited Visits (Within 10 days (routine)) - Authorized Specialty Diagnoses / Procedures Referred By Contact Referred To Contact GI NUTRITION/IM / Gastroenterology Diagnoses History of gastric bypass Bindu Beltran CRNP [address] [place] [address] Referral ID Status Reason Start Date Expiration Date Visits Requested Visits Authorized [id number] Authorized Specialty Services Required 12/07/2022 1 1 [...] DO [address] [place] [address] Referral ID Status Reason Start Date Expiration Date Visits Requested Visits Authorized [id number] Authorized Specialty Services Required 08/30/[phone] Encounter Details Date Type Department Care Team Description 12/07/2022 Office Visit Gastroenterology, [facility] [address] [place] [address] Bindu Beltran CRNP [address] [place] [address] Fatty liver*; History of gastric bypass Allergies [...] CPAP every night at bedtime. 0 Active [place] Carbonate ER 450 MG Oral Tablet Extended [...] prednisone 3 mL 0 10/15/2022 Active Pen [place] 32G X 5 MMIndications:Hypergl ycemia Use as directed. Use with insulin pen 50 Each 0 10/15/2022 Active Nystatin [id number] UNIT/GM External Powder (Nystop)Indications:T inea cruris Apply [...] . Secondary hyperparathyroidism, non-renal 04/01/2019 [facility] OTHER*[id number] 9 Mild persistent asthma without complicat ion [...] tea daily No steroids LB 2020: A. [place] liver, wedge biopsy: Mild steatosis Mild centrilobular [...] Asthma with allergic rhinitis 06/14/2011 Bipolar disorder ([facility]) sees Dr. Dyer Bipolar I disorder, most recent episode depressed, mild ([facility]) 01/28/[address] Dyer BMI 40.0-44.9, adult ([facility]) 06/07/2020 Bunion of great toe [...] [place] DM type 2, not at goal ([facility]) 01/29/2014 = 8.6 Dyslipidemia 02/26/2009 [...] effect Restless legs syndrome Secondary hyperparathyroidism, non-renal ([facility]) 04/01/2019 Sleep apnea on CPAP Sleep apnea, obstructive Status post total bilateral knee replacement 07/17/2016 Type 2 diabetes mellitus with hemoglobin A1c goal of less than 7.0% ([facility]) 01/28/2005 Per Diabetes Taxonomy. ICD-10 update of inactive term Type II diabetes mellitus with neurological manifestations ([facility]) 04/19/2019 Vitamin D deficiency 11/22/2011 [...] performed by Chun Bravo MD at ENDOSCOPY [facility] COLONOSCOPY, DIAGNOSTIC (RECTUM) 10/06/2022 COLONOSCOPY FLEXIBLE PROXIMAL DIAGNOSTIC performed by Chun Bravo MD at ENDOSCOPY [facility] DILATION AND CURETTAGE (D&C) N/A 09/16/2016 DILATION AND CURETTAGE performed by Moses Taylor DO at OR [facility] EGD, FLEXIBLE, DIAGNOSTIC 2009 EGD, FLEXIBLE, DIAGNOSTIC 10/25/2017 benign fundic gland polyp, acid reflux/[facility] EGD, FLEXIBLE, DIAGNOSTIC N/A 04/11/2019 ESOPHAGOGASTRODUODENOSCOPY (EGD), FLEXIBLE, TRANSORAL, DIAGNOSTIC performed by Escobar Leon [facility] OR [facility] EGD, FLEXIBLE, DIAGNOSTIC N/A 07/20/2020 ESOPHAGOGASTRODUODENOSCOPY (EGD), FLEXIBLE, TRANSORAL, DIAGNOSTIC performed by Brendon Berg DO at ENDOSCOPY [facility] EGD, FLEXIBLE, DIAGNOSTIC N/A 02/03/2021 ESOPHAGOGASTRODUODENOSCOPY (EGD), FLEXIBLE, TRANSORAL, DIAGNOSTIC performed by Escobar Leon MDa OR [facility] EGD, FLEXIBLE, DIAGNOSTIC N/A 03/26/2021 ESOPHAGOGASTRODUODENOSCOPY (EGD), FLEXIBLE, TRANSORAL, DIAGNOSTIC performed by Escobar Leon MDa OR [facility] EGD, FLEXIBLE, DIAGNOSTIC 06/09/2021 normal bx / ESOPHAGOGASTRODUODENOSCOPY (EGD), FLEXIBLE, TRANSORAL, DIAGNOSTIC performed by Calrotta Duke MD at ENDOSCOPY [facility] EGD, FLEXIBLE, DIAGNOSTIC 11/06/2021 Gastroparesis / INPT [facility] EGD, FLEXIBLE, DIAGNOSTIC 10/06/2022 ESOPHAGOGASTRODUODENOSCOPY (EGD), FLEXIBLE, TRANSORAL, DIAGNOSTIC performed by Chun Bravo MD at ENDOSCOPY [facility] EGD, W/ENDOSCOPIC US N/A 06/12/2018 ESOPHAGOGASTRODUODENOSCOPY (EGD), FLEXIBLE, TRANSORAL, ENDOSCOPIC ULTRASOUND performed by Hema Pino DO at ENDOSCOPY [facility] ESOPH FUNCT/REFLUX TEST,MUCOSAL PH 07/20/2020 GASTRO REFLUX TEST WITH MUCOSAL TELEMETRY PH ELECTRODE performed by Brendon Breg DO at [facility] INSERT INTRAUTERINE DEVICE (IUD) N/A 09/16/2016 INSERTION OF INTRAUTERINE DEVICE performed by Moses Taylor DO at [facility] KNEE ARTHROSCOPY/SURGERY meniscus tear LAPAROSCOPE PROCEDURE, LIVER N/A 04/11/2019 UNLISTED LAPAROSCOPIC PROCEDURE LIVER performed by Escobar Leon MD at [facility] LAPAROSCOPIC GASTRIC BYPASS/GUCCI-EN-Y N/A 04/11/2019 LAPAROSCOPIC GASTRIC RESTRICTIVE BYPASS GUCCI EN Y performed by Escobar Leon MD at [facility] LAPAROSCOPY; CHOLECYSTECTOMY N/A 04/11/2019 LAPAROSCOPIC CHOLECYSTECTOMY performed by Escobar Leon MD at [facility] LAPAROSCOPY; CHOLECYSTECTOMY N/A 03/26/2021 LAPAROSCOPIC CHOLECYSTECTOMY performed by Escobar Leon MD at [facility] PARAESOPHAGEAL HERNIA REPAIR, LAP W/ MESH N/A 03/26/2021 LAPAROSCOPIC PARAESOPHAGEAL HERNIA REPAIR W/MESH performed by Escobar Leon MD at [facility] PARAESOPHAGEAL HERNIA REPAIR, LAP W/O MESH N/A 03/26/2021 LAPAROSCOPIC PARAESOPHAGEAL HERNIA REPAIR WO/ MESH performed by Escobar Leon MD at [facility] TRANSECTION VAGUS NRV,TRUNCAL Bilateral 03/26/2021 LAPAROSCOPIC TRANSECTION VAGUS NERVES TRUNCAL performed by Escobar Leon MD at OR [facility] Social History Tobacco Use Smoking status: Never [...] Strip 3 CPAP every night at bedtime. [place] Carbonate ER 450 MG Oral Tablet Extended [...] while on prednisone 3 mL 0 Pen [place] 32G X 5 MM Use as directed. Use with insulin pen 50 Each 0 Nystatin [id number] UNIT/GM External Powder (Nystop) Apply topically to [...] see them again. documented in this encounter Miscellaneous Notes * Addendum Note - BETTY Love - 12/07/2022 1:12 PM EDT Addended by: BINDU EBLTRAN on: 12/07/2022 01:12 PM Modules accepted: Orders documented in this encounter Plan of Treatment Upcoming Encounters Date Type Specialty Care Team Description 12/15/2022 Office Visit Sleep Disorders Shaniqua Spann, [address] [place] [address] 12/19/2022 Office Visit Family Medicine Teodoro Galaviz, [address] [place] [address] 12/29/2022 Office Visit Cardiology Jessica Baer PA-C [address] [place] [address] [place] [address] 01/04/2023 Office Visit Gastroenterology Destiny De Leon PA-C [address] [place] [address] 01/20/2023 Office Visit Pharmacy [facility] [address] [facility] [place] [address] 05/24/2023 Office Visit Family Medicine Teodoro Galaviz, DO [address] [place] [address] 07/03/2023 Imaging Radiology Scheduled Orders Name Type [...] Routine Fatty liver Expected: 12/07/2022, Expires: 01/07/2024 LIVER ELASTOGRAPHY W/O IMAGING Procedures Routine Fatty liver Ordered: 12/07/2022 Scheduled Procedures Name Priority Associated Diagnoses Date/Ti [...] and were consensually agreed upon. Care Teams Setter Juice Packaging Machines Relationship Specialty Start Date End Date Nam Squires DO [address] [place] [address] PCP - General Family Medicine 12/02/19 documented as of this encounter
--- OUTSIDE RECORDS SUMMARY | 2023-04-01 23:34 | External Medical Summary | Summary of Care ---
Author Name Unknown Organization [facility] Address [address] [facility] [place] [address] Phone [phone] Care Team Providers Care Parts Advisor Name Role Phone Nam Squires DO Primary Care Provider [phone] Reason for Visit * Reason Onset Date Comments Test Results 11/25/2022 Encounter Details Date Type Department Care Team Description 11/25/2022 Telephone Cardiology Schuyler [address] [id number] Jessica Baer PA-C [address] [place] [address] Test Results Allergies Active Allergy Reactions Severity [...] as of this encounter (statuses as of 11/25/2022) Medications Medication Sig Dispensed Refills Start Date End Date Status BD INSULIN SYRINGE ULTRAFINE 30G X 1/2" 0.3 ML MISC As directed 0 12/15/2014 Active Glucose Blood (OPTIMIZERx CONTOUR NEXT TEST) STRPIndications:DM type 2, not at goal (HCC) Use to test blood sugar 6 times daily dx e11.9 540 Strip 3 01/29/2019 Active CPAP every night at bedtime. 0 Active [place] Carbonate ER 450 MG Oral Tablet Extended Release (Lithobid ER) Take 1 Tablet by mouth in the morning. In the morning.. 0 03/28/2022 Active rOPINIRole HCl 0.5 MG Oral Tablet (Requip)Indications: RLS (restless legs syndrome) Take 1 Tablet by mouth in the morning and 1 Tablet at noon and 1 Tablet before bedtime. 90 Tablet 3 04/11/2022 Active Meclizine HCl 25 MG Oral Tablet [...] area. Apply to effected areas 0 Active rOPINIRole HCl 1 MG Oral Tablet (Requip) Take 2 Tablets by mouth every evening. 180 Tablet 1 08/31/2022 Active Vitamin C Adult Gummies 125 MG Oral Tablet Chewable (Ascorbic Acid) Take by mouth. 0 Activ e Triamcinolone Acetonide 0.5 % External Cream (Aristocort) Apply topically to affected area 2 times a day. To affected area. 80 g 0 10/12/2022 Active NovoLOG FlexPen 100 UNIT/ML Subcutaneous Solution Pen-injector (insulin aspart)Indications:H yperglycemia Inject 3 units with meals if blood sugar greater than 200 while on prednisone 3 mL 0 10/15/2022 Active Pen [place] 32G X 5 MMIndications:Hyperg lycemia Use as directed. Use with insulin pen 50 Each 0 10/15/2022 Active Nystatin 216273 UNIT/GM External Powder (Nystop)Indications: Tinea cruris Apply topically to affected area 3 times a day. Apply to affected area skin folds 60 g 0 10/26/2022 Active Loratadine 10 MG Oral Tablet (Claritin)Indication s:Urticaria Take 1 Tablet by mouth in the morning. 30 Tablet 5 10/26/2022 Active Additional Information Patient taking differently:10 mg OralDAILY PRN, Reported on 11/01/2022 Levothyroxine Sodium 125 MCG Oral Tablet (Levoxyl)Indications [...] mouth in the morning. 0 11/15/2022 Active Rosuvastatin Calcium 10 MG Oral Tablet (Crestor)Indications :Hyperlipemia, mixed Take 1 Tablet by mouth in the morning. 30 Tablet 11 11/15/2022 Active Furosemide 20 MG Oral Tablet (Lasix) Take 1 Tablet by mouth in the morning. 30 Tablet 5 11/23/2022 Active documented as of this encounter (statuses as of 11/25/2022) Active Problems Problem Noted Date Type 2 diabetes mellitus wit h [...] . Secondary hyperparathyroidism, non-renal 04/01/2019 [facility] OTHER*[id number] 9 Mild persistent asthma without complicat ion [...] as of this encounter (statuses as of 11/25/2022) Resolved Problems Problem Noted Date Resolved Date [...] Jaclyn-menopause 04/01/2014 03/22/2018 Overview: Pelvic US WNL 14. DM type 2, not at goal 01/29/2014 [...] as of this encounter (statuses as of 11/25/2022) Immunizations Name Administration Dates Next Due Influenza, [...] encounter Miscellaneous Notes * Telephone Encounter - Tiffanie Vences CMA - 11/25/2022 4:00 PM EDT Portal message sent. * Telephone Encounter - Tiffanie Vences CMA - 11/25/2022 3:58 PM EDT ----- Message from Jessica Baer PA-C sent at 11/25/2022 12:40 PM EDT ----- Labs reviewed. Electrolytes and kidney function normal. Mild anemia, known history of iron deficiency anemia and gastric bypass, recent endoscopy and colonoscopy normal, stable from one month ago. Nochanges at this time. documented in this encounter Plan of Treatment Upcoming Encounters Date Type Specialty Care Team Description 11/28/2022 Hospital Encounter Cardiac Coin Dealer Angelica Sethi MD [address], [place] [phone] 11/28/2022 Surgery Cardiac Coin Dealer Angelica Sethi MD [address], [place] [phone] CORONARY ANGIOGRAPHY W/LEFT HEART CATH 11/28/2022 Office Visit Cardiology [place], [facility] [address], [place] [phone] 12/01/2022 Office Visit Pharmacy [facility] [address] [place] [address] 12/07/2022 Office Visit Gastroenterology Bindu Beltran CRNP [address] [place] [address] 12/15/2022 Office Visit Sleep Disorders Shaniqua Spann, [address] [place] [address] 01/20/2023 Office Visit Pharmacy [facility] [address] [place] [address] 05/24/2023 Office Visit Family Medicine Teodoro Galaviz, [address] [facility] [place] [address] 07/03/2023 Imaging Radiology Scheduled Procedures Name Priority Associated Diagnoses Date/Ti me CORONARY ANGIOGRAPHY W/LEFT HEART CATH Dyspnea, unspecified type 11/28/2022 10:00 AM EDT COLONOSCOPY FLEXIBLE PROXIMAL DIAGNOSTIC Recall [...] and were consensually agreed upon. Care Teams Parts Advisor Relationship Specialty Start Date End Date Nam Squires DO [address] [place] [address] PCP - General Family Medicine 12/02/19 documented as of this encounter
--- OUTSIDE RECORDS SUMMARY | 2023-04-01 23:35 | External Medical Summary ---
Author Name Unknown Address Unknown Organization [id number][place] [place] [address] [facility] [place] [address] Laboratory Report Ordering Provider Test Date Status IRIS YOUNGER 11/24/2022 09:27:00 Final Observation Date Value Abnormality Reference (Units ) Status Triglyceride 11/24/2022 09:27:00 162 <=174 ( mg/dL) Final Triglyceride Reference Range s (mg/dL):
<150 Acceptable
150-174 Borderline high
175-499 High
>=500 Very high Cholesterol 11/24/2022 09:27:00 150 <200 (mg /dL) Final Total Cholesterol Reference Ranges (mg/dL):
<200 Desirable
200-239 Borderline high
>=240 High HDL 11/24/2022 09:27:00 46 Below low normal >49 (mg/dL) Final HDL Cholesterol Reference Ra nges (mg/dL):
>=60 High (Desirable)
<50 Low (Undesirable) For Females
<40 Low (Undesirable) For Males NON-HDL CHOLESTEROL 11/24/2022 09:27:00 104 <=159 (mg/dL) Final Non-HDL Cholesterol Referenc e Range (mg/dL):
<100 Target level for high risk ASCVD patient
<130 Optimal for general population
130-159 Near optimal for general population
160-189 Borderline High
190-219 High
>=220 Very High LDL, (calculated) 11/24/2022 09:27:00 72 <= 129 (mg/dL) Final LDL Cholesterol Reference Ra nges (mg/dL):
<70 Target level for high risk ASCVD patient
<100 Optimal for general population
100-129 Near optimal for general population
130-159 Borderline high
160-189 High
>=190 Very high Performing Location [facility] [place] [address] [facility] [address]
--- OUTSIDE RECORDS SUMMARY | 2023-04-01 23:35 | External Medical Summary ---
Author Name Unknown Address Unknown Organization [id number] [address] [place] [address] Laboratory Report Ordering Provider Test Date Status IRIS YOUNGER 11/24/2022 09:28:16 Final Observation Date Value Abnormality Reference (Units ) Status BUN 11/24/2022 09:28:16 17 6-20 (mg/dL) Final Creatinine 11/24/2022 09:28:16 0.8 0.5-1.0 (mg/dL) Final Glomerular filtration rate/1.73 sq M.predicted [Volume Rate/Area] in Serum, Plasma or Blood by Creatinine-based formula (CKD-EPI) 11/24/2022 09:28:16 >90 >=60 (mL/min) Final eGFR is calculated based on the CKD-EPI 2020 equation SODIUM 11/24/2022 09:28:16 140 135-146 (m mol/L) Final Potassium 11/24/2022 09:28:16 3.9 3.5-5.1 (m mol/L) Final Cl 11/24/2022 09:28:16 104 98-107 (mm ol/L) Final CO2 11/24/2022 09:28:16 27 22-32 (mmo l/L) Final Anion gap 11/24/2022 09:28:16 9 7-15 (mmol /L) Final Glucose 11/24/2022 09:28:16 203 Above high normal 70 -120 (mg/dL) Final Calcium 11/24/2022 09:28:16 9.4 8.4-10.2 ( mg/dL) Final Performing Location [facility] [address] - [address] [place] [address]
--- OUTSIDE RECORDS SUMMARY | 2023-04-01 23:35 | External Medical Summary | Summary of Care ---
Author Name Unknown Organization [facility] Address [address] [facility] [place] [address] Phone [phone] Care Team Providers Care Adobe Cq Developer Name Role Phone Nam Squires DO Primary Care Provider Encounter Details Date Type Department Care Team Description 11/22/2022 Orders Only Laboratory, [facility] [address] [place] [address] Katarina Chung PA-C [address] [place], [place] [id number] Anxiety state*; Bipolar 1 disorder (HCC); Encounter for long-term (current) use of other medications Allergies Active Allergy Reactions Severity Noted Date [...] as of this encounter (statuses as of 11/22/2022) Medications Medication Sig Dispensed Refills Start Date End Date Status BD INSULIN SYRINGE ULTRAFINE 30G X 1/2" 0.3 ML MISC As directed 0 12/15/2014 Active Glucose Blood (TAYA CONTOUR NEXT TEST) STRPIndications:DM type 2, not at goal (HCC) Use to test blood sugar 6 times daily dx e11.9 540 Strip 3 01/29/2019 Active CPAP every night at bedtime. 0 Active busPIRone HCl 10 MG Oral Tablet (Buspar) 2 Tablets in the morning and 2 Tablets before bedtime. 0 03/28/2022 Active [place] Carbonate ER 450 MG Oral Tablet [...] prednisone 3 mL 0 10/15/2022 Active Pen [place] 32G X 5 MMIndications:Hyperg lycemia Use as directed. Use with insulin pen 50 Each 0 10/15/2022 Active Nystatin 036656 UNIT/GM External Powder (Nystop)Indications: Tinea cruris Apply topically to affected area 3 times a day. Apply to affected area skin folds 60 g 0 10/26/2022 Active Loratadine 10 MG Oral Tablet (Claritin)Indication s:Urticaria Take 1 Tablet by mouth in the morning. 30 Tablet 10/26/2022 Active Additional Information Patient taking differently:10 mg OralDAILY PRN, Reported on 11/01/2022 Furosemide 20 MG Oral Tablet (Lasix) Take 1 Tablet by mouth in the morning. 30 Tablet 11/01/2022 Active Levothyroxine Sodium 125 MCG Oral Tablet [...] the morning. 30 Tablet 11 11/15/2022 Active documented as of this encounter (statuses as of 11/22/2022) Active Problems Problem Noted Date Type 2 [...] . Secondary hyperparathyroidism, non-renal 04/01/2019 [employer] OTHER*[id number] 9 Mild persistent asthma without complicat ion [...] as of this encounter (statuses as of 11/22/2022) Resolved Problems Problem Noted Date Resolved Date [...] as of this encounter (statuses as of 11/22/2022) Immunizations Name Administration Dates Next Due Influenza, [...] Encounters Date Type Specialty Care Team Description 11/25/2022 Office Visit Cardiology Jessica Baer PA-C [address] [place] [address] [place] [address] 12/07/2022 Office Visit Gastroenterology Bindu Beltran CRNP [address] [place] [address] 12/15/2022 Office Visit Sleep Disorders Shaniqua Spann, DO [address] [place] [address] 01/20/2023 Office [address] [facility] [address] [address] 07/03/2023 Imaging Radiology Scheduled Orders Name Type Priority Associated Diagnoses Orde r Schedule BASIC METABOLIC PANEL Lab Routine Anxiety state Bipolar 1 disorder (HCC) Encounter for long-term (current) use of other medications Expected: 11/22/2022, Expires: 11/23/2023 LITHIUM LEVEL Lab Routine Anxiety state Bipolar 1 disorder (HCC) Encounter for long-term (current) use of other medications Expected: 11/22/2022, Expires: 11/23/2023 TSH Lab Routine Anxiety state Bipolar 1 disorder (HCC) Encounter for long-term (current) use of other medications Expected: 11/22/2022, Expires: 11/23/2023 T4, FREE Lab Routine Anxiety state Bipolar 1 disorder (HCC) Encounter for long-term (current) use of other medications Expected: 11/22/2022, Expires: 11/23/2023 Scheduled Procedures Name Priority Associated Diagnoses Date/Ti [...] Additional history exists Cologuard 10/20/2023 10/19/2020, 06/06/2017 GFR 11/02/2023 11/01/2022, 08/12, 10/20/2021, Additional history exists TSH 11/02/2023 11/01/2022, 08/12, 08/03/2021, Additional history exists Lipid Panel 09/02/2024 09/03/2019, 03/14, 12/23/2017, Additional history exists IUD 7-Year 08/12/2028 08/12/2021 [...] as of this encounter Visit Diagnoses Diagnosis Anxiety state- Primary Anxiety state, unspecified Bipolar 1 disorder (HCC) Bipolar I disorder, most recent episode (or current) unspecified Encounter for long-term (current) use of other medications documented in this encounter Advance Directives Latest [...] and were consensually agreed upon. Care Teams Adobe Cq Developer Relationship Specialty Start Date End Date Nam Squires DO [address] [place] [address] PCP - General Family Medicine 12/02/19 documented as of this encounter
--- OUTSIDE RECORDS SUMMARY | 2023-04-01 23:35 | External Medical Summary ---
Author Name Unknown Address Unknown Organization K01:[facility] [place] - [address] [place] [address] Laboratory Report Ordering Provider Test Date Status IRIS YOUNGER 11/24/2022 09:27:00 Final Observation Date Value Abnormality Reference (Units ) Status [place] [Moles/volume] in Blood 11/24/2022 09:27:00 0.5 Below low normal 0.6-1.2 (mmol/L) Final Performing Location LABORATORY [facility] [place] - [address] [place] [address]
--- OUTSIDE RECORDS SUMMARY | 2023-04-01 23:35 | External Medical Summary | Summary of Care ---
Author Name Unknown Organization [facility] Address [address] [place] [address] Phone [phone] Care Team Providers Care Midwife Practitioner Name Role Phone Nam Squires DO Primary Care Provider Reason for Visit * Reason Comments Outpatient Testing Encounter Details Date Type Department Care Team Description 11/25/2022 Laboratory Laboratory, [facility] [address] [facility] [address] [place] [phone] [facility] [address] [facility] [address] Abnormal nuclear stress test; TRIPP (dyspnea on exertion); Heart palpitations; Bradycardia; Bilateral leg edema; HTN, goal below 140/90; Hyperlipemia, mixed; Diastolic murmur Allergies Active Allergy Reactions Severity Noted Date [...] CPAP every night at bedtime. 0 Active [place] Carbonate ER 450 MG Oral Tablet Extended Release (Lithobid ER) Take 1 Tablet by mouth in the morning. In the morning.. 0 3 Active rOPINIRole HCl 0.5 MG Oral Tablet (Requip)Indications :RLS (restless legs syndrome) Take 1 Tablet by mouth in the morning and 1 Tablet at noon and 1 Tablet before bedtime. 90 Tablet 3 3 Active Meclizine HCl 25 MG Oral [...] mouth every evening. 180 Tablet 1 3 Active Vitamin C Adult Gummies 125 MG [...] prednisone 3 mL 0 3 Active Pen [place] 32G X 5 MMIndications:Hyper glycemia Use as directed. Use with insulin pen 50 Each 0 3 Active Nystatin 724411 UNIT/GM External Powder (Nystop)Indications :Tinea cruris Apply topically to affected area 3 times a day. Apply to affected area skin folds 60 g 0 3 Active Loratadine 10 MG Oral Tablet (Claritin)Indicatio ns:Urticaria Take 1 Tablet by mouth in the morning. 30 Tablet 5 3 Active Additional Information Patient taking differently:10 mg [...] mouth in the morning. 0 3 Active Rosuvastatin Calcium 10 MG Oral Tablet (Crestor)Indication s:Hyperlipemia, mixed Take 1 Tablet by mouth in the morning. 30 Tablet 11 3 Active Furosemide 20 MG Oral Tablet (Lasix) Take 1 Tablet by mouth in the morning. 30 Tablet 5 3 Active busPIRone HCl 10 MG Oral Tablet (Buspar) 2 Tablets in the morning and 2 Tablets before bedtime. 0 3 11/26/19 23 Discontinued documented as of this encounter [...] . Secondary hyperparathyroidism, non-renal 04/01/2019 [employer] OTHER*[id number] 9 Mild persistent asthma without complicat ion [...] as of this encounter Miscellaneous Notes * Result Encounter Note - Jessica Baer PA-C - 11/25/2022 12:40 PM EDT Labs reviewed. Electrolytes and kidney function normal. Mild anemia, known history of iron deficiency anemia and gastric bypass, recent endoscopy and colonoscopy normal, stable from one month ago. Nochanges at this time. documented in this encounter Plan of Treatment Upcoming Encounters Date Type Specialty Care Team Description 11/28/2022 Hospital Encounter Cardiac Product Info Specialist Angelica Sethi MD [address] [place], [place] [phone] 11/28/2022 Surgery Cardiac Product Info Specialist Angelica Sethi MD [address] [place], [place] [phone] CORONARY ANGIOGRAPHY W/LEFT HEART CATH 11/28/2022 Office Visit Cardiology [facility] [address] [place], [place] [phone] 11/28/2022 Office Visit Pharmacy [facility] [address] [place] [address] 12/07/2022 Office Visit Gastroenterology Bindu Beltran CRNP [address] [place] [address] 12/15/2022 Office Visit Sleep Disorders Shaniqua Spann DO [address] [place] [address] 01/20/2023 Office Visit Pharmacy [facility] [address] [place] [address] 05/24/2023 Office Visit Family Medicine Teodoro Galaviz, [address] [place] [address] 07/03/2023 Imaging Radiology Scheduled Procedures Name Priority [...] Procedure Name Priority Date/Time Associated Diagnosis Comments BASIC METABOLIC PANEL Routine 11/25/2022 10:54 AM EDT Abnormal nuclear stress test TRIPP (dyspnea on exertion) Heart palpitations Bradycardia Bilateral leg edema HTN, goal below 140/90 Hyperlipemia, mixed Diastolic murmur PT INR Routine 11/25/2022 10:54 AM EDT Abnormal nuclear stress test TRIPP (dyspnea on exertion) Heart palpitations Bradycardia Bilateral leg edema HTN, goal below 140/90 Hyperlipemia, mixed Diastolic murmur APTT Routine 11/25/2022 10:54 AM EDT Abnormal nuclear stress test TRIPP (dyspnea on exertion) Heart palpitations Bradycardia Bilateral leg edema HTN, goal below 140/90 Hyperlipemia, mixed Diastolic murmur CBC Routine 11/25/2022 10:54 AM EDT Abnormal nuclear stress test TRIPP (dyspnea on exertion) Heart palpitations Bradycardia Bilateral leg edema HTN, goal below 140/90 Hyperlipemia, mixed Diastolic murmur documented in this encounter Results * PT INR (11/25/2022 10:54 AM EDT) Prothrombin Time 13.0 11.6 - 15.2 seconds 11/25/2022 11:25 AM EDT [facility] [place] [facility] INR 1.0 0.8 - 1.2 11/25/2022 11:25 AM EDT [facility] 57-10 Blood Venous blood specimen / Unknown Venipuncture / Unknown 11/25/2022 10:54 AM EDT 11/25/2022 10:54 AM EDT Narrative [facility] 57-10 - 11/25/2022 11:25 AM EDT Warfarin Therapy INR: 2.0-3.0 conventional anticoagulation INR: 2.5-3.5 high intensity anticoagulation Jessica Baer PA-C LAB BLOOD ORDER [facility] [address] [facility] [place] [address] * (ABNORMAL) BASIC METABOLIC PANEL (11/25/2022 10:54 AM EDT) BUN 20 6 - 20 mg/dL 11/25/2022 12:01 PM EDT [facility] 57-10 Creatinine 0.8 0.5 - 1.0 mg/dL 11/25/2022 12:01 PM EDT [facility] 57-10 Estimated Glomerular Filtration Rate >90 >=60 mL/min 11/25/2022 12:01 PM EDT [facility] 57-10 Comment:eGFR is calculated b ased on the CKD-EPI 2020 equation Sodium 141 135 - 146 mmol/L 11/25/2022 12:01 PM EDT [facility] 57-10 Potassium 4.3 3.5 - 5.1 mmol/L 11/25/2022 12:01 PM EDT [facility] 57-10 Chloride 105 98 - 107 mmol/L 11/25/2022 12:01 PM EDT [facility] 57-10 CO2 26 22 - 32 mmol/L 11/25/2022 12:01 PM EDT [facility] 57-10 Anion Gap 10 7 - 15 mmol/L 11/25/2022 12:01 PM EDT [facility] Glucose 281(H) 70 - 120 mg/dL 11/25/2022 12:01 PM EDT [facility] 57-10 Calcium 9.5 8.4 - 10.2 mg/dL 11/25/2022 12:01 PM EDT [facility] [place] 57-10 Blood Venous blood specimen / Unknown Venipuncture / Unknown 11/25/2022 10:54 AM EDT 11/25/2022 10:54 AM EDT Jessica Baer PA-C LAB BLOOD ORDER SHARITA Performing Organization Address City/[facility]/ZIP Co de Phone Number [facility] [place] [facility]-[address] [place] [address] * APTT (11/25/2022 10:54 AM EDT) aPTT 25 21 - 38 seconds 11/25/2022 11:26 AM EDT [facility] [place] 57-10 Blood Venous blood specimen / Unknown Venipuncture / Unknown 11/25/2022 10:54 AM EDT 11/25/2022 10:54 AM EDT Narrative [facility] [place] 57-10 - 11/25/2022 11:26 AM EDT Anticoagulation may affect testing. Refer to [employer] Test Catalog for a list of effects. Jessica Baer PA-C LAB BLOOD ORDER [facility] Performing Organization Address City/[facility]/ZIP Co de Phone Number [facility] [facility] [place] [address] * (ABNORMAL) CBC (11/25/2022 10:54 AM EDT) WBC 6.56 4.00 - 10.80 K/uL 11/25/2022 11:13 AM EDT [facility] [place] 57-10 RBC 3.56 3.85 - 5.15 M/uL 11/25/2022 11:13 AM EDT [facility] [place] 57-10 HGB 10.8(L) 12.0 - 15.3 g/dL 11/25/2022 11:13 AM EDT [facility] [place] 57-10 HCT 32.8(L) 36.0 - 45.2 % 11/25/2022 11:13 AM EDT [facility] [place] 57-10 MCV 92.1 81.5 - 97.5 fL 11/25/2022 11:13 AM EDT [facility] [place] 57-10 MCH 30.3 27.0 - 34.0 pg 11/25/2022 11:13 AM EDT [facility] [place] 57-10 MCHC 32.9 32.0 - 36.0 g/dL 11/25/2022 11:13 AM EDT [facility] [place] 57-10 RDW 13.1 11.5 - 15.5 % 11/25/2022 11:13 AM EDT [facility] [place] 57-10 PLT 307 140 - 400 K/uL 11/25/2022 11:13 AM EDT [facility] [place] 57-10 MPV 9.4 6.6 - 11.1 fL 11/25/2022 11:13 AM EDT [facility] [place] 57-10 Blood Venous blood specimen / Unknown Venipuncture / Unknown 11/25/2022 10:54 AM EDT 11/25/2022 10:54 AM EDT Jessica Baer PA-C LAB BLOOD ORDER SHARITA [facility] [place] [address] documented in this encounter Visit Diagnoses Diagnosis Abnormal nuclear stress test Other nonspecific abnormal cardiovascular system function study TRIPP (dyspnea on exertion) Other dyspnea and respiratory abnormality Heart palpitations Palpitations Bradycardia Other specified cardiac dysrhythmias Bilateral leg edema Edema HTN, goal below 140/90 Unspecified essential hypertension Hyperlipemia, mixed Mixed hyperlipidemia Diastolic murmur Undiagnosed cardiac murmurs Dyspnea, unspecified type documented in this encounter Advance Directives Latest [...] and were consensually agreed upon. Care Teams Midwife Practitioner Relationship Specialty Start Date End Date Nam Squires DO [address] [place] [address] PCP - General Family Medicine 12/02/19 documented as of this encounter
--- OUTSIDE RECORDS SUMMARY | 2023-04-01 23:35 | External Medical Summary | Summary of Care ---
Author Name Unknown Organization [facility] Address [address] [facility] [place] [address] Phone [phone] Care Team Providers Care Respiratory Scientist Name Role Phone Nam Squires DO Primary Care Provider Reason for Visit * Reason Onset Date Comments Test Results 11/25/2022 Encounter Details Date Type Department Care Team Description 11/25/2022 Telephone Cardiology Schuyler Landaverde [address] [id number] Jessica Baer PA-C [address] [place] [address] Test Results Allergies Active [...] As directed 0 12/15/2014 Active Glucose Blood ([employer] CONTOUR NEXT TEST) STRPIndications:DM type 2, not at goal (HCC) Use to test blood sugar 6 times daily dx e11.9 540 Strip 3 01/29/2019 Active CPAP every night at bedtime. 0 Active [place] Carbonate ER 450 MG Oral Tablet Extended [...] prednisone 3 mL 0 10/15/2022 Active Pen [place] 32G X 5 MMIndications:Hyperg lycemia Use as directed. Use with insulin pen 50 Each 0 10/15/2022 Active Nystatin 630384 UNIT/GM External Powder (Nystop)Indications: Tinea cruris Apply [...] . Secondary hyperparathyroidism, non-renal 04/01/2019 [employer] OTHER*[id number] 9 Mild persistent asthma without complicat ion [...] 432 06/2008 PSG -- CPAP 10 cwp [facility] documented as of this [...] Encounter - Tiffanie Vences CMA - 11/25/2022 12:12 PM EDT Portal message sent. * Telephone Encounter - Tiffanie Vences CMA - 11/25/2022 12:10 PM EDT ----- Message from Jessica Baer PA-C sent at 11/25/2022 11:21 AM EDT ----- Chest x-ray normal. documented in this encounter Plan of Treatment Upcoming Encounters Date Type Specialty Care Team Description 11/28/2022 Hospital Encounter Cardiac Fire Range Technician Angelica Sethi MD [address] [place] [address] 11/28/2022 Surgery Cardiac Fire Range Technician Angelica Sethi MD [address] [place], [place] [phone] CORONARY ANGIOGRAPHY W/LEFT HEART CATH 11/28/2022 Office Visit Cardiology [place], Cardiac [facility] [address] [place], [place] [phone] 12/01/2022 Office Visit Pharmacy [facility] [address] [place] [address] 12/07/2022 Office Visit Gastroenterology Bindu Beltran CRNP [address] [place] [address] 12/15/2022 Office Visit Sleep Disorders Shaniqua Spann DO [address] [place] [address] 01/20/2023 Office Visit Pharmacy [facility] [address] [place] [address] 05/24/2023 Office Visit Family Medicine Teodoro Galaviz, [address] [place] [address] 07/03/2023 Imaging Radiology Scheduled Procedures Name Priority [...] and were consensually agreed upon. Care Teams Respiratory Scientist Relationship Specialty Start Date End Date Nam Squires DO [address] [place] [address] PCP - General Family Medicine 12/02/19 documented as of this encounter
--- OUTSIDE RECORDS SUMMARY | 2023-04-01 23:35 | External Medical Summary | Summary of Care ---
Author Name Unknown Organization [facility] Address [address] [facility] [place] [address] Phone [phone] Care Team Providers Care Devulcanizer Operator Name Role Phone Nam Squires DO Primary Care Provider Reason for Visit * Reason Comments Outpatient Testing Encounter Details Date Type Department Care Team Description 11/24/2022 Laboratory Laboratory, [facility] [address] [facility] [place] [address] [facility] [address] [employer] Other*[id number]; Heart palpitations; Fatigue, unspecified type; TRIPP (dyspnea on exertion); Chest tightness; HTN, goal below 140/90; Hyperlipemia, mixed; Bilateral leg edema; Bradycardia; Diastolic murmur Allergies Active Allergy Reactions Severity [...] as of this encounter (statuses as of 11/24/2022) Medications Medication Sig Dispensed Refills Start Date End Date Status BD INSULIN SYRINGE ULTRAFINE 30G X 1/2" 0.3 ML MISC As directed 0 12/15/2014 Active Glucose Blood ([employer] CONTOUR NEXT TEST) STRPIndications:DM type 2, not at goal (HCC) Use to test blood sugar 6 times daily dx e11.9 540 Strip 3 01/29/2019 Active CPAP every night at bedtime. 0 Active busPIRone HCl 10 MG Oral Tablet (Buspar) 2 Tablets in the morning and 2 Tablets before bedtime. 0 03/28/2022 Active [place] Carbonate ER 450 MG Oral Tablet Extended [...] prednisone 3 mL 0 10/15/2022 Active Pen [place] 32G X 5 MMIndications:Hyperg lycemia Use as directed. Use with insulin pen 50 Each 0 10/15/2022 Active Nystatin 253413 UNIT/GM External Powder (Nystop)Indications: Tinea cruris Apply [...] as of this encounter (statuses as of 11/24/2022) Active Problems Problem Noted Date Type 2 [...] . Secondary hyperparathyroidism, non-renal 04/01/2019 [employer] OTHER*[id number] 9 Mild persistent asthma without complicat ion [...] as of this encounter (statuses as of 11/24/2022) Resolved Problems Problem Noted Date Resolved Date [...] as of this encounter (statuses as of 11/24/2022) Immunizations Name Administration Dates Next Due Influenza, [...] 11/25/2022 Office Visit Cardiology Jessica Baer PA-C [address] [place] [address] 11/28/2022 Office Visit Pharmacy [facility] [address] [place] [address] 12/07/2022 Office Visit Gastroenterology Bindu Beltran, TURNAROUND ENGINEER [address] [place] [address] 12/15/2022 Office Visit Sleep Disorders Shaniqua Spann, DO [address] [place] [address] 01/20/2023 Office Visit Pharmacy [facility] [address] [place] [address] 07/03/2023 Imaging Radiology Pending Results Name Type Priority Associated Diagnoses Date /Time MYCODE SUBSEQUENT ADULT Lab Routine [employer] Other*[id number] 11/24/2022 9:28 AM EDT LITHIUM LEVEL Lab Routine Heart palpitations Fatigue, unspecified type TRIPP (dyspnea on exertion) Chest tightness HTN, goal below 140/90 Hyperlipemia, mixed 11/24/2022 9:28 AM EDT BASIC METABOLIC PANEL Lab Routine Bilateral leg edema 11/24/2022 9:28 AM EDT MYCODE SST1 Lab Routine [employer] Other*[id number] 11/24/2022 9:28 AM EDT MYCODE SST2 Lab Routine [employer] Other*[id number] 11/24/2022 9:28 AM EDT LIPID PANEL WITH DIRECT LDL IF TG IS HIGH Lab Routine Heart palpitations Fatigue, unspecified type TRIPP (dyspnea on exertion) Chest tightness HTN, goal below 140/90 Hyperlipemia, mixed Bradycardia Bilateral leg edema Diastolic murmur 11/24/2022 9:27 AM EDT Scheduled Procedures Name Priority Associated [...] history exists Cologuard 10/20/2023 10/19/2020, 06/06/2017 GFR 11/23/2023 11/22/2022, 10/12, 08/31/2022, Additional history exists TSH 11/23/2023 11/22/2022, 10/12, 08/31/2022, Additional history exists Lipid Panel 09/02/2024 09/03/2019, [...] this encounter Visit Diagnoses Diagnosis [employer] Other*[id number] Heart palpitations Palpitations Fatigue, unspecified type TRIPP (dyspnea on exertion) Other dyspnea and respiratory abnormality Chest tightness Other chest pain HTN, goal below 140/90 Unspecified essential hypertension Hyperlipemia, mixed Mixed hyperlipidemia Bilateral leg edema Edema Bradycardia Other specified cardiac dysrhythmias Diastolic murmur Undiagnosed cardiac murmurs documented in this encounter Advance Directives Latest [...] and were consensually agreed upon. Care Teams Devulcanizer Operator Relationship Specialty Start Date End Date Nam Squires DO [address] [place] [address] PCP - General Family Medicine 12/02/19 documented as of this encounter
--- OUTSIDE RECORDS SUMMARY | 2023-04-01 23:35 | External Medical Summary ---
Author Name Unknown Address Unknown Organization K0G:LABORATORY [facility] 57-10 - [address] [place] [address] Laboratory Report Ordering Provider Test Date Status CHRISSY MOONEY 11/25/2022 10:54:53 Final Observation Date Value Abnormality Reference (Units ) Status BUN 11/25/2022 10:54:53 20 6-20 (mg/dL) Final Creatinine 11/25/2022 10:54:53 0.8 0.5-1.0 (mg/dL) Final Glomerular filtration rate/1.73 sq M.predicted [Volume Rate/Area] in Serum, Plasma or Blood by Creatinine-based formula (CKD-EPI) 11/25/2022 10:54:53 >90 >=60 (mL/min) Final eGFR is calculated based on the CKD-EPI 2020 equation SODIUM 11/25/2022 10:54:53 141 135-146 (m mol/L) Final Potassium 11/25/2022 10:54:53 4.3 3.5-5.1 (m mol/L) Final Cl 11/25/2022 10:54:53 105 98-107 (mm ol/L) Final CO2 11/25/2022 10:54:53 26 22-32 (mmo l/L) Final Anion gap 11/25/2022 10:54:53 10 7-15 (mmol /L) Final Glucose 11/25/2022 10:54:53 281 Above high normal 70 -120 (mg/dL) Final Calcium 11/25/2022 10:54:53 9.5 8.4-10.2 ( mg/dL) Final Performing Location LABOR[facility]ORY [facility] 57-1 0 - [address] [place] [address]
--- OUTSIDE RECORDS SUMMARY | 2023-04-01 23:35 | External Medical Summary ---
Author Name Unknown Address Unknown Organization K01:[facility] [place] [address] [place] [address] Laboratory Report Ordering Provider Test Date Status MYLES GONZALEZ 11/24/2022 09:28:16 Final Observation Date Value Abnormality Reference (Units ) Status MYCODE SPECIMEN-SST 11/24/2022 09:28:16 Freezing of extracted DNA, whole blood and/or serum. Final Performing Location [facility] [place] [address] [place] [address]
--- OUTSIDE RECORDS SUMMARY | 2023-04-01 23:35 | External Medical Summary | Summary of Care ---
Author Name Unknown Organization [facility] Address [address] [facility] [place] [address] Phone [phone] Care Team Providers Care Inventory Taker Name Role Phone Nam Squires DO Primary Care Provider [phone] Encounter Details Date Type Department Care Team Description 11/22/2022 Orders Only Laboratory, [facility] [address] [place] [address] Katarina Chung PA-C [address] [facility] [address] [place], [place] [id number] Anxiety state*; Bipolar 1 disorder (HCC); Encounter [...] 2 Tablets before bedtime. 0 03/28/2022 Active Clarion Carbonate ER 450 MG Oral Tablet Extended [...] prednisone 3 mL 0 10/15/2022 Active Pen [place] 32G X 5 MMIndications:Hyperg lycemia Use as directed. Use with insulin pen 50 Each 0 10/15/2022 Active Nystatin 326665 UNIT/GM External Powder (Nystop)Indications: Tinea cruris Apply [...] . Secondary hyperparathyroidism, non-renal 04/01/2019 [facility] OTHER*[id number] 9 Mild persistent asthma without complicat ion [...] PSG -- CPAP 10 cwp [facility] documented as of this [...] 11/25/2022 Office Visit Cardiology Jessica Baer PA-C [address] [place] [address] [place] [address] 12/07/2022 Office Visit Gastroenterology Bindu Beltran CRNP [address] [facility] [place] [address] 12/15/2022 Office Visit Sleep Disorders Shaniqua Spann, DO [address] [place] [address] 01/20/2023 Office [address] [facility] [address] [address] 07/03/2023 Imaging Radiology Scheduled Orders Name Type [...] and were consensually agreed upon. Care Teams Inventory Taker Relationship Specialty Start Date End Date Nam Squires DO [address] [place] [address] PCP - General Family Medicine 12/02/19 documented as of this encounter
--- OUTSIDE RECORDS SUMMARY | 2023-04-01 23:35 | External Medical Summary | Summary of Care ---
Author Name Unknown Organization [facility] Address [address] [facility] [place] [address] Phone [phone] Care Team Providers Care Agents' Records Clerk Name Role Phone Nam Squires DO Primary Care Provider Reason for Visit * Reason Comments Follow Up * Evaluate & Treat - Unlimited Visits (Within 30 days (routine)) - Authorized Specialty Diagnoses / Procedures Referred By Contact Referred To Contact Cardiovascular Medicine / Cardiology Diagnoses Palpitations Nam Squires DO [address] [place] [address] Referral ID Status Reason Start Date Expiration Date Visits Requested Visits Authorized [id number] Authorized Specialty Services Required 11/21/[phone] Encounter Details Date Type Department Care Team Description 11/25/2022 Office Visit Cardiology, [facility] [address] [facility] [place] [address] Jessica Baer PA-C [address] [place] [address] Abnormal nuclear stress test*; TRIPP (dyspnea on exertion); Heart palpitations; Bradycardia; Fatigue, unspecified type; Bilateral leg edema; Diastolic murmur; HTN, goal below 140/90; Hyperlipemia, mixed Allergies Active Allergy Reactions Severity Noted Date [...] CPAP every night at bedtime. 0 Active Sublimity Carbonate ER 450 MG Oral Tablet Extended [...] prednisone 3 mL 0 3 Active Pen [place] 32G X 5 MMIndications:Hyper glycemia Use as directed. Use with insulin pen 50 Each 0 3 Active Nystatin 712722 UNIT/GM External Powder (Nystop)Indications :Tinea cruris Apply [...] . Secondary hyperparathyroidism, non-renal 04/01/2019 [facility] OTHER*[id number] 9 Mild persistent asthma without complicat ion [...] DM type 2, not at goal 01/29/2014 09/15/202 1 Overview: Feb 2014 = 8.6 Acute [...] Sign Reading Time Taken Comments Blood Pressure 124/66 11/25/2022 10:02 AM EDT Pulse 60 11/25/2022 10:02 AM EDT Temperature - - Respiratory Rate 16 11/25/2022 10:02 AM EDT Oxygen Saturation - - Inhaled Oxygen Concentration - - Weight 89.8 kg (198 lb) 11/25/2022 10:02 AM EDT Height - - Body Mass [...] as of this encounter Progress Notes * Jessica Baer PA-C - 11/25/2022 10:00 AM EDT 11/25/2022 Cardiology Follow Up Past Medical History: [...] discussed lithium with psych provider, Katarina at [email or web address], they do not recommend any changes at this time. Sublimity level low. REVIEW OF SYSTEMS: See HPI [...] Dispense Refill CPAP every night at bedtime. Sublimity Carbonate ER 450 MG Oral Tablet Extended [...] while on prednisone 3 mL 0 Nystatin 988926 UNIT/GM External Powder (Nystop) Apply topically to [...] To affected area. 80 g 0 Pen [place] 32G X 5 MM Use as directed. [...] Asthma with allergic rhinitis 06/14/2011 Bipolar disorder ([facility]) sees Dr. Dyer Bipolar I disorder, most recent episode depressed, mild ([facility]) 01/28/[address] Dyer BMI 40.0-44.9, adult ([facility]) 06/07/2020 Bunion of great toe [...] Lucero DM type 2, not at goal ([facility]) 01/29/2014 = 8.6 Dyslipidemia 02/26/2009 [...] effect Restless legs syndrome Secondary hyperparathyroidism, non-renal ([facility]) 04/01/2019 Sleep apnea on CPAP Sleep apnea, obstructive Status post total bilateral knee replacement 07/17/2016 Type 2 diabetes mellitus with hemoglobin A1c goal of less than 7.0% ([facility]) 01/28/2005 Per Diabetes Taxonomy. ICD-10 update of inactive term Type II diabetes mellitus with neurological manifestations ([facility]) 04/19/2019 Vitamin D deficiency 11/22/2011 = 17.9 Taking 50,000 twice weekly per [facility]. Plans to recheck June Family History Problem [...] patient agreeable, prefers to have done in [place]. - Catheterization planned for 11/28, preop labs [...] may ultimately need weaned vs discontinued. ? Sublimity use contributing to hypervolemia- lithium level low [...] or concerns. Jessica Baer PA-C Cardiology, [address] [address] I spent a total of 45 minutes on the date of service in preparation, delivery, and documentation ofthe care provided to Joyce Smith excluding any time spent in the performance of separately billed services. This chart was completed in part utilizing [employer] Speech Voice Recognition Software. Grammatical errors, random [...] documented in this encounter Nursing Notes * Luis Haynes RN - 11/25/2022 9:54 AM EDT Examination Room: room 3 Name: Joyce Smith Date of : (1965). Reason for Visit: for follow up Interim Hospitalization(s): denies Problems/Concerns: denies Chest Pain/SOB: still getting chest tightness; palpitations; TRIPP [facility] Discussed: yes [facility] is a way you can talk to your provider online through e-mail. Would you like to sign up? I can activate it for you? ALREADY ACTIVE Patient was instructed to not get up on the exam table until directed and assisted by their provider; patient is to remain seated in the chair/ wheelchair/ exam table for fall prevention and safety reasons. Patient is aware to have assistance to step down off exam table with personnel. Patient voiced full comprehension of instructions. documented in this encounter Miscellaneous Notes * Result Encounter Note - Jessica Baer PA-C - 11/25/2022 11:21 AM EDT Chest x-ray normal. documented in this encounter Plan of Treatment Upcoming Encounters Date Type Specialty Care Team Description 11/28/2022 Hospital Encounter Cardiac Batch Operator Angelica Sethi MD [address] [place] [address] 11/28/2022 Surgery Cardiac Batch Operator Angelica Sethi MD [address] [place] [address] CORONARY ANGIOGRAPHY W/LEFT HEART CATH 11/28/2022 Office Visit Cardiology [facility] Cardiac [facility] [address] [place] [address] 11/28/2022 Office Visit Pharmacy [place] [id number] [place] [address] 12/07/2022 Office Visit Gastroenterology Bindu Beltran CRNP [address] [place] [address] 12/15/2022 Office Visit Sleep Disorders Shaniqua Spann Krista, DO [address] [place] [address] 01/20/2023 Office Visit Pharmacy [facility] [address] [place] [address] 05/24/2023 Office Visit Family Medicine Teodoro Galaviz, DO [address] [place] [address] 07/03/2023 Imaging Radiology Scheduled Orders Name Type Priority Associated Diagnoses Orde r Schedule CARDIAC CATH-CARDIOLOGY ONLY Procedures Routine Abnormal nuclear stress test TRIPP (dyspnea on exertion) Heart palpitations Bradycardia Bilateral leg edema HTN, goal below 140/90 Hyperlipemia, mixed Diastolic murmur Ordered: 11/25/2022 EKG EKG Routine Abnormal nuclear stress test TRIPP (dyspnea on exertion) Heart palpitations Bradycardia Bilateral leg edema HTN, goal below 140/90 Hyperlipemia, mixed Diastolic murmur Ordered: 11/25/2022 Scheduled Procedures Name Priority Associated Diagnoses Date/Ti [...] 06/28/2023 06/27/2022, 05/2020, 12/25/2019, Additional history exists Cologuard 10/20/2023 [...] Procedure Name Priority Date/Time Associated Diagnosis Comments XR CHEST 2 VIEWS Routine 11/25/2022 11:1 2 AM EDT Abnormal nuclear stress test TRIPP (dyspnea on exertion) Heart palpitations Bradycardia Bilateral leg edema HTN, goal below 140/90 Hyperlipemia, mixed Diastolic murmur documented in this encounter Results * XR CHEST 2 VIEWS (11/25/2022 11:12 AM EDT) Anatomical Region Laterality Modality Chest Computed Radiogr aphy 11/25/2022 11:1 8 AM EDT Impressions 11/25/2022 11:16 AM EDT IMPRESSION No acute cardiopulmonary abnormality identified. Narrative 11/25/2022 11:16 AM EDT EXAM XR CHEST 2 VIEWS- 11/25/2022 11:12 am HISTORY Provided clinical history: "preop for cath, chest pain" TECHNIQUE PA and lateral upright views of the chest were obtained. COMPARISON Chest radiographs dated January 31, 2022. FINDINGS No visible internal lines or tubes. The cardiomediastinal silhouette is normal in size and contour. No significant central pulmonary vascular congestion or interstitial pulmonary edema. No focal pulmonary consolidation, pleural effusion, or pneumothorax. Multilevel intervertebral disc degeneration. Procedure Note Maia, Aron Green MD - 11/25/2022 EXAM XR CHEST 2 VIEWS- 11/25/2022 11:12 am HISTORY Provided clinical history: "preop for cath, chest pain" TECHNIQUE PA and lateral upright views of the chest were obtained. COMPARISON Chest radiographs dated January 31, 2022. FINDINGS No visible internal lines or tubes. The cardiomediastinal silhouette is normal in size and contour. Nosignificant central pulmonary vascular congestion or interstitialpulmonary edema. No focal pulmonary consolidation, pleural effusion, orpneumothorax. Multilevel intervertebral disc degeneration. IMPRESSION IMPRESSION No acute cardiopulmonary abnormality identified. Jessica Baer PA-C RADIOLOGY (RAD GENERAL) * PT INR (11/25/2022 10:54 AM EDT) Prothrombin Time 13.0 11.6 - 15.2 seconds 11/25/2022 11:25 AM EDT [facility] INR 1.0 0.8 - 1.2 11/25/2022 11:25 AM EDT [facility] Blood Venous blood specimen / Unknown Venipuncture / Unknown 11/25/2022 10:54 AM EDT 11/25/2022 10:54 AM EDT Narrative [facility]10 - 11/25/2022 11:25 AM EDT Warfarin Therapy INR: 2.0-3.0 conventional anticoagulation INR: 2.5-3.5 high intensity anticoagulation Jessica Baer PA-C LAB BLOOD ORDER [facility] [facility] [place] [address] * (ABNORMAL) BASIC METABOLIC PANEL (11/25/2022 10:54 AM EDT) BUN 20 6 - 20 mg/dL 11/25/2022 12:01 PM EDT [facility]10 Creatinine 0.8 0.5 - 1.0 mg/dL 11/25/2022 12:01 PM EDT [facility] Estimated Glomerular Filtration Rate >90 >=60 mL/min 11/25/2022 12:01 PM EDT [facility] Comment:eGFR is calculated b ased on the CKD-EPI 2020 equation Sodium 141 135 - 146 mmol/L 11/25/2022 12:01 PM EDT [facility] Potassium 4.3 3.5 - 5.1 mmol/L 11/25/2022 12:01 PM EDT [facility] Chloride 105 98 - 107 mmol/L 11/25/2022 12:01 PM EDT [facility] CO2 26 22 - 32 mmol/L 11/25/2022 12:01 PM EDT [facility] Anion Gap 10 7 - 15 mmol/L 11/25/2022 12:01 PM EDT [facility] Glucose 281(H) 70 - 120 mg/dL 11/25/2022 12:01 PM EDT [facility] Calcium 9.5 8.4 - 10.2 mg/dL 11/25/2022 12:01 PM EDT [facility] Blood Venous blood specimen / Unknown Venipuncture / Unknown 11/25/2022 10:54 AM EDT 11/25/2022 10:54 AM EDT Jessica Kate Keyur SHETTY-C LAB BLOOD ORDER [facility] Performing Organization Address City/[facility]/ZIP Co de Phone Number [facility] [place] [address] * APTT (11/25/2022 10:54 AM EDT) aPTT 25 21 - 38 seconds 11/25/2022 11:26 AM EDT [facility] Blood Venous blood specimen / Unknown Venipuncture / Unknown 11/25/2022 10:54 AM EDT 11/25/2022 10:54 AM EDT Narrative [facility] - 11/25/2022 11:26 AM EDT Anticoagulation may affect testing. Refer to [employer] Test Catalog for a list of effects. Jessica SHETTY-C LAB BLOOD ORDER [facility] Performing Organization Address City/[facility]/ZIP Co de Phone Number [facility] [address] [place] [address] * (ABNORMAL) CBC (11/25/2022 10:54 AM EDT) [...] 97.5 fL 11/25/2022 11:13 AM EDT [facility]10 MCH 30.3 27.0 - 34.0 pg 11/25/2022 11:13 AM EDT [facility] MCHC 32.9 32.0 - 36.0 g/dL 11/25/2022 11:13 AM EDT [facility]10 RDW 13.1 11.5 - 15.5 % 11/25/2022 11:13 AM EDT [facility]10 PLT 307 140 - 400 K/uL 11/25/2022 11:13 AM EDT [facility]10 MPV 9.4 6.6 - 11.1 fL 11/25/2022 11:13 AM EDT [facility]10 Blood Venous blood specimen / Unknown Venipuncture / Unknown 11/25/2022 10:54 AM EDT 11/25/2022 10:54 AM EDT Jessica Baer PA-C LAB BLOOD ORDER [facility] [facility] [address] documented in this encounter Visit Diagnoses Diagnosis Abnormal nuclear stress test- Primary Other nonspecific abnormal cardiovascular system function study TRIPP (dyspnea on exertion) Other dyspnea and respiratory abnormality Heart palpitations Palpitations Bradycardia Other specified cardiac dysrhythmias Fatigue, unspecified type Bilateral leg edema Edema Diastolic murmur Undiagnosed cardiac murmurs HTN, goal below 140/90 Unspecified essential hypertension Hyperlipemia, mixed Mixed hyperlipidemia Dyspnea, unspecified type documented in this encounter [...] and were consensually agreed upon. Care Teams Agents' Records Clerk Relationship Specialty Start Date End Date Nam Squires DO [address] [place] [address] PCP - General Family Medicine 12/02/19 documented as of this encounter
--- OUTSIDE RECORDS SUMMARY | 2023-04-01 23:35 | External Medical Summary ---
Author Name Unknown Address Unknown Organization [facility]ORY [facility] [employer] [address] [place] [address] Laboratory Report Ordering Provider Test Date Status CHRISSY MOONEY 11/25/2022 10:54:53 Final Observation Date Value Abnormality Reference (Units ) Status WBC, Total 11/25/2022 10:54:53 6.56 4.00-10.8 0 (K/uL) Final RBC 11/25/2022 10:54:53 3.56 3.85-5.15 (M/uL) Final Hemoglobin 11/25/2022 10:54:53 10.8 Below low normal 12 .0-15.3 (g/dL) Final HCT 11/25/2022 10:54:53 32.8 Below low normal 36. 0-45.2 (%) Final MCV 11/25/2022 10:54:53 92.1 81.5-97.5 (fL) Final MCH 11/25/2022 10:54:53 30.3 27.0-34.0 (pg) Final MCHC 11/25/2022 10:54:53 32.9 32.0-36.0 (g/dL) Final RDW 11/25/2022 10:54:53 13.1 11.5-15.5 (%) Final Platelets 11/25/2022 10:54:53 307 140-400 (K /uL) Final MPV 11/25/2022 10:54:53 9.4 6.6-11.1 ( fL) Final Performing Location [facility] [address] [place] [address]
--- OUTSIDE RECORDS SUMMARY | 2023-04-01 23:35 | External Medical Summary ---
Author Name Unknown Address Unknown Organization [facility] [address] [place] [address] Laboratory Report Ordering Provider Test Date Status CHRISSY MOONEY 11/25/2022 10:54:53 Final Anticoagulation may affect t esting. Refer to [employer] Test Catalog for a list of effects. Observation Date Value Abnormality Reference (Units ) Status aPTT panel - Platelet poor plasma 11/25/2022 10:54:53 25 21-38 (seconds) Final Performing Location [facility] [address] [place] [address]
--- OUTSIDE RECORDS SUMMARY | 2023-04-01 23:35 | External Medical Summary | Summary of Care ---
Author Name Unknown Organization [facility] Address [address] [facility] [place] [address] Phone [phone] Care Team Providers Care Customer Business Manager Name Role Phone Nam Squires DO Primary Care Provider [phone] Reason for Visit * Reason Onset Date Comments Medication Refill 11/23/2022 Encounter Details Date Type Department Care Team Description 11/23/2022 Refill Cardiology, [facility] [address] [place] [address] Carisa Simmons CRNP [address] [place] [address] Allergies Active Allergy Reactions Severity Noted Date [...] as of this encounter (statuses as of 11/23/2022) Medications Medication Sig Dispensed Refills Start Date [...] 2 Tablets before bedtime. 0 03/28/2022 Active Aten Carbonate ER 450 MG Oral Tablet Extended [...] prednisone 3 mL 0 10/15/2022 Active Pen [place] 32G X 5 MMIndications:Hyper glycemia Use as directed. Use with insulin pen 50 Each 0 10/15/2022 Active Nystatin 706701 UNIT/GM External Powder (Nystop)Indications :Tinea cruris Apply topically to affected area 3 times a day. Apply to affected area skin folds 60 g 0 10/26/2022 Active Loratadine 10 MG Oral Tablet (Claritin)Indicatio [...] the morning. 30 Tablet 5 11/23/2022 Active Furosemide 20 MG Oral Tablet (Lasix) Take 1 Tablet by mouth in the morning. 30 Tablet 5 11/01/2022 3 Discontinu ed(Refill) documented as of this encounter (statuses as of 11/23/2022) Active Problems Problem Noted Date Type 2 [...] . Secondary hyperparathyroidism, non-renal 04/01/2019 [facility] OTHER*[id number] 9 Mild persistent asthma without complicat ion [...] as of this encounter (statuses as of 11/23/2022) Resolved Problems Problem Noted Date Resolved Date [...] as of this encounter (statuses as of 11/23/2022) Immunizations Name Administration Dates Next Due Influenza, [...] Miscellaneous Notes * Telephone Encounter - BETTY Brice - 11/23/2022 3:54 PM EDTSigned Prescriptions: Disp Refills Furosemide 20 MG Oral Tablet (Lasix) 30 Tab*5 Sig: Take 1 Tablet by mouth in the morning. Authorizing Provider: CARISA SIMMONS * Telephone Encounter - Luis Haynes RN - 11/23/2022 2:57 PM EDT Pending Prescriptions: Disp Refills Furosemide 20 MG Oral Tablet (Lasix) 30 Tab*5 Sig: Take 1 Tablet by mouth in the morning. Last Visit: 11/01/2022 (in office), Visit date not found (telemedicine) Next Visit: 11/25/2022 Last medication order date: 11/01/2022 Have you choosen a preferred pharm?? yes Patient Active Problem List Diagnosis Code Hypothyroidism E03.9 Gastroesophageal reflux disease with esophagitis K21.00 Bipolar I disorder, most recent episode depressed, mild ([facility]) F31.31 Type 2 diabetes mellitus with hemoglobin A1c goal of less than 7.0% ([facility]) E11.9 HTN, goal below 130/80 I10 Dyslipidemia E78.5 Iron deficiency anemia D50.9 Generalized osteoarthritis M15.9 COLTEN (obstructive sleep apnea) G47.33 Asthma with allergic rhinitis J45.909 Fibroid uterus D25.9 Lumbar degenerative disc disease M51.36 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 Mild persistent asthma without complication J45.30 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 H60.21 [facility] OTHER*[id number] Secondary hyperparathyroidism, non-renal ([facility]) E21.1 Hypocalciuria E83.59 History of bariatric surgery Z98.84 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 RLS (restless legs syndrome) G25.81 Peripheral neuropathy due to metabolic disorder ([facility]) E88.9, G63 Diabetic retinopathy of both eyes associated with type 2 diabetes mellitus ([facility]) E11.319 Hiatal hernia K44.9 Primary osteoarthritis of left foot M19.072 Abdominal pain, generalized R10.84 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 (HCC) E11.42 Type 2 diabetes mellitus with diabetic peripheral angiopathy without gangrene (HCC) E11.51 Osteoarthritis of both acromioclavicular joints M19.011, M19.012 DDD (degenerative disc disease), cervical M50.30 Thoracic degenerative disc disease M51.34 Irritable bowel syndrome with both constipation and diarrhea K58.2 History of Thuan-en-Y gastric bypass Z98.84 Labs: Lab Results Component Value Date/Time CREATININE - [facility] 1.2 (H) 11/22/2022 04:58 PM CREATININE - [facility] 1.0 03/17/2020 08:54 AM [...] PM CREATININE-OUTSIDE LAB 1.10 04/11/2015 12:00 AM Lab Results Component Value Date/Time POTASSIUM - [facility] 4.0 11/22/2022 04:58 PM POTASSIUM - [facility] 4.3 03/17/2020 08:54 AM POTASSIUM-OUTSIDE LAB 3.7 04/11/2015 12:00 AM Lab Results Component Value Date/Time TSH - [facility] 0.46 11/22/2022 04:58 PM TSH - [facility] 0.17 (L) 03/17/2020 08:54 AM Lab Results Component Value Date/Time LDL CHOLESTEROL (CALCULATED) - [facility] 145 (H) 09/03/2019 10:48 AM LDL CHOLESTEROL (CALCULATED) - [facility] 88 12/23/2017 08:47 AM LDL CHOLESTEROL (DIRECT MEASURE) - [facility] 71 04/03/2019 12:57 PM LDL CHOLESTEROL (DIRECT MEASURE) - [facility] 92 06/17/2014 02:26 PM LDL CHOLESTEROL (DIRECT MEASURE) - [facility] 111 02/10/2014 10:07 AM Lab Results Component Value Date/Time ALT - [facility] 20 11/01/2022 12:40 PM ALT - [facility] 18 03/17/2020 08:54 AM ALT-OUTSIDE LAB 25 04/11/2015 12:00 AM ALTERNARIA IGE - [facility] <0.10 09/26/2018 02:46 PM Hemoglobin AIC Results: Lab Results Component Value Date/Time HEMOGLOBIN A1C 6.5 (H) 01/16/1996 10:00 AM HEMOGLOBIN A1C - [facility] 7.2 (H) 11/01/2022 12:40 PM HEMOGLOBIN A1C - [facility] 6.8 (H) 08/31/2022 10:46 AM HEMOGLOBIN A1C - [facility] 6.9 (H) 12/08/2021 08:40 AM HEMOGLOBIN A1C - [facility] 7.6 (H) 03/17/2020 08:54 AM HEMOGLOBIN A1C - [facility] 7.1 (H) 10/23/2019 11:59 AM HEMOGLOBIN A1C - [facility] 7.3 (H) 09/03/2019 10:58 AM documented in this encounter Plan of Treatment Upcoming Encounters Date Type Specialty Care Team Description 11/25/2022 Office Visit Cardiology Jessica Baer PA-C [address] [place] [address] [place] [address] 11/28/2022 Office Visit Pharmacy [address] [address] 12/07/2022 Office Visit Gastroenterology Bindu Beltran CRNP [address] [place] [address] 12/15/2022 Office Visit Sleep Disorders Shaniqua Spann DO [address] [place] [address] 01/20/2023 Office Visit Pharmacy [place] [facility] [address] [place], [place] [id number] 07/03/2023 Imaging Radiology Scheduled Procedures Name Priority [...] and were consensually agreed upon. Care Teams Customer Business Manager Relationship Specialty Start Date End Date Nam Squires DO [address] [place] [address] PCP - General Family Medicine 12/02/19 documented as of this encounter
--- OUTSIDE RECORDS SUMMARY | 2023-04-01 23:35 | External Medical Summary ---
Author Name Unknown Address Unknown Organization [facility]:LABORATORY [facility] 57[address] - [address] [place] [address] Laboratory Report Ordering Provider Test Date Status CHRISSY MOONEY 11/25/2022 10:54:53 Final Warfarin Therapy
INR: 2 .0-3.0 conventional anticoagulation
INR: 2.5- 3.5 high intensity anticoagulation Observation Date Value Abnormality Reference (Units ) Status PT 11/25/2022 10:54:53 13.0 11.6-15.2 (seconds) Final INR 11/25/2022 10:54:53 1.0 0.8-1.2 Final Performing Location LABORATORY [facility] 57-1 [address] - [address] [place] [address]
--- OUTSIDE RECORDS SUMMARY | 2023-04-01 23:35 | External Medical Summary | Summary of Care ---
Author Name Unknown Organization [facility] Address [address] [facility] [place] [address] Phone [phone] Care Team Providers Care Seismographer Name Role Phone Nam Squires DO Primary Care Provider Reason for Visit * Reason Comments Outpatient Testing Encounter Details Date Type Department Care Team Description 11/24/2022 Laboratory Laboratory, [facility] [address] [facility] [address] [facility] [address] [facility] [address] [employer] Other*[id number]; Heart palpitations; Fatigue, unspecified type; TRIPP (dyspnea [...] As directed 0 12/15/2014 Active Glucose Blood (Accipiter Radar CONTOUR NEXT TEST) STRPIndications:DM type 2, not at goal (HCC) Use to test blood sugar 6 times daily dx e11.9 540 Strip 3 01/29/2019 Active CPAP every night at bedtime. 0 Active busPIRone HCl 10 MG Oral Tablet (Buspar) 2 Tablets in the morning and 2 Tablets before bedtime. 0 03/28/2022 Active Biggers Carbonate ER 450 MG Oral Tablet Extended [...] prednisone 3 mL 0 10/15/2022 Active Pen [place] 32G X 5 MMIndications:Hyperg lycemia Use as directed. Use with insulin pen 50 Each 0 10/15/2022 Active Nystatin 746140 UNIT/GM External Powder (Nystop)Indications: Tinea cruris Apply [...] . Secondary hyperparathyroidism, non-renal 04/01/2019 [facility] OTHER*[id number] 9 Mild persistent asthma without complicat ion [...] Office Visit Cardiology Jessica Baer PA-C [address] [place] [address] 11/28/2022 Office Visit Pharmacy [facility] [address] [place] [address] 12/07/2022 Office Visit Gastroenterology Bindu Beltran, STRATEGIC PARTNERSHIP REPRESENTATIVE [address] [place] [address] 12/15/2022 Office Visit Sleep Disorders Shaniqua Spann, DO [address] [place] [address] 01/20/2023 Office Visit Pharmacy [facility] [address] [place] [address] 07/03/2023 Imaging Radiology Pending Results Name Type Priority Associated Diagnoses Date /Time MYCODE SUBSEQUENT ADULT Lab Routine [employer] Other*[id number] 11/24/2022 9:28 AM EDT LITHIUM LEVEL Lab Routine Heart palpitations Fatigue, unspecified type TRIPP (dyspnea on exertion) Chest tightness HTN, goal below 140/90 Hyperlipemia, mixed 11/24/2022 9:28 AM EDT BASIC METABOLIC PANEL Lab Routine Bilateral leg edema 11/24/2022 9:28 AM EDT MYCODE SST1 Lab Routine [employer] Other*[id number] 11/24/2022 9:28 AM EDT MYCODE SST2 Lab Routine [employer] Other*[id number] 11/24/2022 9:28 AM EDT LIPID PANEL WITH [...] this encounter Visit Diagnoses Diagnosis [employer] Other*[id number] Heart palpitations Palpitations Fatigue, unspecified type TRIPP [...] and were consensually agreed upon. Care Teams Seismographer Relationship Specialty Start Date End Date Nam Squires DO [address] [place] [address] PCP - General Family Medicine 12/02/19 documented as of this encounter
--- OUTSIDE RECORDS SUMMARY | 2023-04-01 23:35 | External Medical Summary ---
Author Name Unknown Address Unknown Organization K01:LABORATORY [facility] [place] - [address] [place] [address] Laboratory Report Ordering Provider Test Date Status MYLES GONZALEZ 11/24/2022 09:28:16 Final Observation Date Value Abnormality Reference (Units ) Status MYCODE SPECIMEN-SST 11/24/2022 09:28:16 Freezing of extracted DNA, whole blood and/or serum. Final Performing Location LABORATORY [facility] - [address] [place] [address]
--- OUTSIDE RECORDS SUMMARY | 2023-04-01 23:36 | External Medical Summary ---
Author Name Unknown Address Unknown Organization K01:LAB[facility]ATORY [facility] [place] [address] [place] [address] Laboratory Report Ordering Provider Test Date Status KAYODESTEPHENIE 11/22/2022 16:58:48 Final Observation Date Value Abnormality Reference (Units ) Status Sidon [Moles/volume] in Blood 11/22/2022 16:58:48 0.4 Below low normal 0.6-1.2 (mmol/L) Final Performing Location LABORAT[facility] [place] [address] [place] [address]
--- OUTSIDE RECORDS SUMMARY | 2023-04-01 23:36 | External Medical Summary | Summary of Care ---
Author Name Unknown Organization [facility] Address [address] [facility] [place] [address] Phone [phone] Care Team Providers Care Booking Prizer Name Role Phone Nam Squires DO Primary Care Provider Reason for Visit * Reason Onset Date Comments Test Results 11/17/2022 Encounter Details Date Type Department Care Team Description 11/17/2022 Telephone Cardiology, [facility] [address] [place] [address] Dianna Alcala CRNP [address] [facility] [place] [address] Test Results Allergies Active Allergy Reactions Severity [...] as of this encounter (statuses as of 11/18/2022) Medications Medication Sig Dispensed Refills Start Date [...] 2 Tablets before bedtime. 0 03/28/2022 Active Anon Raices Carbonate ER 450 MG Oral Tablet Extended [...] prednisone 3 mL 0 10/15/2022 Active Pen [place] 32G X 5 MMIndications:Hyperg lycemia Use as directed. Use with insulin pen 50 Each 0 10/15/2022 Active Nystatin 741965 UNIT/GM External Powder (Nystop)Indications: Tinea cruris Apply [...] as of this encounter (statuses as of 11/18/2022) Active Problems Problem Noted Date Type 2 [...] . Secondary hyperparathyroidism, non-renal 04/01/2019 [facility] OTHER*[id number] 9 Mild persistent asthma without complicat ion [...] 432 06/2008 PSG -- CPAP 10 cwp [facility] documented as of this encounter (statuses as of 11/18/2022) Resolved Problems Problem Noted Date Resolved Date [...] as of this encounter (statuses as of 11/18/2022) Immunizations Name Administration Dates Next Due Influenza, [...] encounter Miscellaneous Notes * Telephone Encounter - Nilda Yung LPN - 11/17/2022 4:13 PM EDT Spoke with patient in regards to results and recommendations. Verbalized understanding. No further concerns at this time. * Telephone Encounter - BETTY Brice - 11/17/2022 2:37 PM EDT Sorry for the typo-- Echocardiogram stable with a normal LVEF of 60-64% without wall motion abnormalities. trivial mitral regurg and tricuspid regurg. No pulm HTN. Keep follow up as scheduled. * Telephone Encounter - Tiffanie Vences CMA - 11/17/2022 2:31 PM EDT Please clarify message * Telephone Encounter - Tiffanie Vences CMA - 11/17/2022 2:31 PM EDT ----- Message from BETTY Brice sent at 11/17/2022 12:40 PM EDT ----- Echocardiogram stable with a normal LVEF of 60-64% without wall motion abnormalities. She will havea or TR. No pulmonary keep follow-up as scheduled on 11/25. documented in this encounter Plan of Treatment Upcoming Encounters Date Type Specialty Care Team Description 11/25/2022 Office Visit [facility]iology eJ[facility] [address] [facility] [place] [address] 12/07/2022 Office Visit Gastroenterology Bindu Beltran CRNP [address] [place] [address] 12/15/2022 Office Visit Sleep Disorders Shaniqua Spann DO [address] [place] [address] 01/20/2023 [address] [address] 07/03/2023 Imaging Radiology Scheduled Procedures Name Priority [...] and were consensually agreed upon. Care Teams Booking Prizer Relationship Specialty Start Date End Date Nam Squires DO [address] [place] [address] PCP - General Family Medicine 12/02/19 documented as of this encounter
--- OUTSIDE RECORDS SUMMARY | 2023-04-01 23:36 | External Medical Summary ---
Author Name Unknown Address Unknown Organization K01:LABORATORY [facility] - [address] [place] [address] Laboratory Report Ordering Provider Test Date Status KAYODESTEPHENIE 11/22/2022 16:58:48 Final Observation Date Value Abnormality Reference (Units ) Status TSH 11/22/2022 16:58:48 0.46 0.27-4.20 (uIU/mL) Final Performing Location LABORATORY [facility] - [address] [place] [address]
--- OUTSIDE RECORDS SUMMARY | 2023-04-01 23:36 | External Medical Summary | Summary of Care ---
Author Name Unknown Organization [facility] Address [address] [facility] [place] [address] Phone [phone] Care Team Providers Care Wildlife Forensic Geneticist Name Role Phone Nam Squires DO Primary Care Provider Reason for Visit * Reason Onset Date Comments FYI 11/15/2022 Encounter Details Date Type Department Care Team Description 11/15/2022 Telephone [facility] [address] [place] [address] Nam Squires DO [address] [place] [address] FYI (/) Allergies Active Allergy Reactions Severity Noted Date [...] as of this encounter (statuses as of 11/15/2022) Medications Medication Sig Dispensed Refills Start Date [...] 2 Tablets before bedtime. 0 03/28/2022 Active Seagraves Carbonate ER 450 MG Oral Tablet Extended [...] prednisone 3 mL 0 10/15/2022 Active Pen [place] 32G X 5 MMIndications:Hyperg lycemia Use as directed. Use with insulin pen 50 Each 0 10/15/2022 Active Nystatin 488933 UNIT/GM External Powder (Nystop)Indications: Tinea cruris Apply [...] as of this encounter (statuses as of 11/15/2022) Active Problems Problem Noted Date Type 2 [...] . Secondary hyperparathyroidism, non-renal 04/01/2019 [facility] OTHER*[id number] 9 Mild persistent asthma without complicat ion [...] 06/2008 PSG -- CPAP 10 cwp [facility] documented as of this encounter (statuses as of 11/15/2022) Resolved Problems Problem Noted Date Resolved Date [...] as of this encounter (statuses as of 11/15/2022) Immunizations Name Administration Dates Next Due Influenza, [...] encounter Miscellaneous Notes * Telephone Encounter - COLTEN Nguyen - 11/15/2022 12:44 PM EDT Transfer to cardiology documented in this encounter Plan of Treatment Upcoming Encounters Date Type Specialty Care Team Description 11/17/2022 Cardiac Studies Cardiac Studies 12/05/2022 Office Visit Cardiology Mone Mcgovern CRNP [address] [place] [address] 12/07/2022 Office Visit Gastroenterology Bindu Beltran CRNP [address] [place] [address] 12/15/2022 Office Visit Sleep Disorders Shaniqua Spann DO [address] [place] [address] 01/20/2023 Office Visit Pharmacy [facility] [address] [place] [address] 07/03/2023 Imaging Radiology Scheduled Procedures Name Priority [...] 64 Years) (2 - PCV) 04/13/2018 04/13/2017 DIABETES-FOOT EXAM 09/02/2022 09/02/2021, 1 03/19/2018, 04/06/2018, Additional history exists Depression Screening, Annual for Pts 12 and Over 09/30/2022 09/30/2021 Influenza Vaccine (FLU shot) (#1) [...] and were consensually agreed upon. Care Teams Wildlife Forensic Geneticist Relationship Specialty Start Date End Date Nam Squires DO [address] [place] [address] PCP - General Family Medicine 12/02/19 documented as of this encounter
--- OUTSIDE RECORDS SUMMARY | 2023-04-01 23:36 | External Medical Summary | Summary of Care ---
Author Name Unknown Organization [facility] Address [address] [facility] [place] [address] Phone [phone] Care Team Providers Care Chief Sustainability Officer Name Role Phone Nam Squires DO Primary Care Provider Reason for Visit * Reason Onset Date Comments Test Results 11/17/2022 Encounter Details Date Type Department Care Team Description 11/17/2022 Telephone Cardiology, [facility] [address] [place] [address] Dianna Alcala CRNP [address] [facility] [place] [address] Test Results Allergies Active Allergy Reactions Severity [...] as of this encounter (statuses as of 11/17/2022) Medications Medication Sig Dispensed Refills Start Date [...] 2 Tablets before bedtime. 0 03/28/2022 Active Tullos Carbonate ER 450 MG Oral Tablet Extended [...] prednisone 3 mL 0 10/15/2022 Active Pen Od[place] 32G X 5 MMIndications:Hyperg lycemia Use as directed. Use with insulin pen 50 Each 0 10/15/2022 Active Nystatin 698872 UNIT/GM External Powder (Nystop)Indications: Tinea cruris Apply [...] as of this encounter (statuses as of 11/17/2022) Active Problems Problem Noted Date Type 2 [...] . Secondary hyperparathyroidism, non-renal 04/01/2019 [facility] OTHER*[id number] 9 Mild persistent asthma without complicat ion [...] as of this encounter (statuses as of 11/17/2022) Resolved Problems Problem Noted Date Resolved Date [...] as of this encounter (statuses as of 11/17/2022) Immunizations Name Administration Dates Next Due Influenza, [...] Office Visit [facility] [address] [facility] [place] [address] 12/07/2022 Office Visit Gastroenterology Bindu Beltran CRNP [address] [place] [address] 12/15/2022 Office Visit Sleep Disorders Shaniqua Spann DO [address] [place] [address] 01/20/2023 [address] [address] 07/03/2023 Imaging Radiology Scheduled Procedures Name Priority [...] and were consensually agreed upon. Care Teams Chief Sustainability Officer Relationship Specialty Start Date End Date Nam Squires DO [address] [place] [address] PCP - General Family Medicine 12/02/19 documented as of this encounter
--- OUTSIDE RECORDS SUMMARY | 2023-04-01 23:36 | External Medical Summary | Summary of Care ---
Author Name Unknown Organization [facility] Address [address] [facility] [place] [address] Phone [phone] Care Team Providers Care Outpatient Physical Therapist Assistant Name Role Phone Nam Squires DO Primary Care Provider [phone] Reason for Visit * Reason Onset Date Comments Test Results 11/15/2022 Encounter Details Date Type Department Care Team Description 11/15/2022 Telephone Cardiology, [facility] [address] [place] [address] Dianna Alcala CRNP [address] [facility] [place] [address] Test Results Allergies Active Allergy Reactions Severity [...] as of this encounter (statuses as of 11/16/2022) Medications Medication Sig Dispensed Refills Start Date [...] 2 Tablets before bedtime. 0 03/28/2022 Active Topaz Carbonate ER 450 MG Oral Tablet Extended [...] prednisone 3 mL 0 10/15/2022 Active Pen [place] 32G X 5 MMIndications:Hyperg lycemia Use as directed. Use with insulin pen 50 Each 0 10/15/2022 Active Nystatin 419397 UNIT/GM External Powder (Nystop)Indications: Tinea cruris Apply [...] as of this encounter (statuses as of 11/16/2022) Active Problems Problem Noted Date Type 2 [...] . Secondary hyperparathyroidism, non-renal 04/01/2019 [facility] OTHER*[id number] 9 Mild persistent asthma without complicat ion [...] as of this encounter (statuses as of 11/16/2022) Resolved Problems Problem Noted Date Resolved Date [...] as of this encounter (statuses as of 11/16/2022) Immunizations Name Administration Dates Next Due Influenza, [...] encounter Miscellaneous Notes * Telephone Encounter - Luis Haynes RN - 11/16/2022 9:00 AM EDT Called and spoke to the patient and she stated she has not see her psych provider since her cardiactesting or visit with Ama Alcala. She saw her psych provider prior to the OV. She will but the enteric coated ASA as requested. She is asking for for a sooner appointment if available. * Telephone Encounter - BETTY Brice - 11/15/2022 1:49 PM EDT Gastric bypass itself does not reduce the risk of ASCVD. A1c is an average glucose level over 3 months and does not need to be fasting. Aspirin should be avoided immediately post op- but okay to take an 81 mg (coated) ASA now. Lightheadedness could be from her low heart rates or these findings on her nuclear stress-- has shereached out to her psyc provider regarding her lithium? BETTY Calixto * Telephone Encounter - Luis Haynes RN - 11/15/2022 1:28 PM EDT Patient returned call to the clinic and stated that she wanted her test results from cardiac nuc testing. I reviewed the message with her from Dianna Alcala. 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 She stated her last A1C HGB was elevated due to not fasting.She stated she doesn't understand why she has risk factors. Spent time explaining it to her. She stated she cannot and was advise not to take ASA due to her gastric by pass surgery. She is willing totake the crestor. She is also wondering if the current test results are a cause of headaches and lightheadedness * Telephone Encounter - EBTTY Neff - 11/15/2022 10:51 AM EDT Noted. Will discuss at upcomming appointment and recommend [facility] * Telephone Encounter - BETTY Brice - 11/15/2022 8:27 AM EDT Please let the patient know that her nuclear stress test was deemed abnormal. A small-sized reversible anteroapical perfusion defect consistent with distal LAD territory ischemia was noted. Patient has multiple ASCVD risk factors as outlined in my prior office visit note. Recommendations: Start aspirin 81 mg daily Start Crestor 10 mg daily. Obtain fasting labs- orders previously placed. Proceed with echo on 11/17 She has an appt with Mone on 12/05- consider cardiac cath Thanks, BETTY Calixto documented in this encounter Plan of Treatment Upcoming Encounters Date Type Specialty Care Team Description 11/17/2022 Cardiac Studies Cardiac Studies 12/05/2022 Office Visit Cardiology Mone Mcgovern CRNP [address] [place] [address] 12/07/2022 Office Visit Gastroenterology Bindu Beltran CRNP [address] [place] [address] 12/15/2022 Office Visit Sleep Disorders Shaniqua Spann DO [address] [place] [address] 01/20/2023 Office Visit Pharmacy [facility] [address] [place] [address] 07/03/2023 Imaging Radiology Scheduled Procedures Name Priority [...] as of this encounter Visit Diagnoses Diagnosis Chest tightness- Primary Other chest pain Hyperlipemia, mixed Mixed hyperlipidemia documented in this encounter Advance Directives [...] and were consensually agreed upon. Care Teams Outpatient Physical Therapist Assistant Relationship Specialty Start Date End Date Nam Squires DO [address] [place] [address] PCP - General Family Medicine 12/02/19 documented as of this encounter
--- OUTSIDE RECORDS SUMMARY | 2023-04-01 23:36 | External Medical Summary | Summary of Care ---
Author Name Unknown Organization [facility] Address [address] [facility] [place] [address] Phone [phone] Care Team Providers Care Trap Puller Name Role Phone Nam Squires DO Primary Care Provider Reason for Visit * Reason Onset Date Comments Test Results 11/02/2022 Encounter Details Date Type Department Care Team Description 11/02/2022 Telephone Cardiology, [facility] [address] [place] [address] Dianna Alcala CRNP [address] [facility] [place] [address] Test Results Allergies Active Allergy Reactions Severity [...] as of this encounter (statuses as of 11/04/2022) Medications Medication Sig Dispensed Refills Start Date [...] and 2 Tablets before bedtime. 0 3 Active Tull Carbonate ER 450 MG Oral Tablet Extended [...] prednisone 3 mL 0 3 Active Pen [place] 32G X 5 MMIndications:Hyper glycemia Use as directed. Use with insulin pen 50 Each 0 3 Active Nystatin 204443 UNIT/GM External Powder (Nystop)Indications :Tinea cruris Apply topically to affected area 3 times a day. Apply to affected area skin folds 60 g 0 3 Active Loratadine 10 MG Oral Tablet (Claritin)Indicatio ns:Urticaria Take 1 Tablet by mouth in the morning. 30 Tablet 5 3 Active Additional Information Patient taking differently:10 mg OralDAILY PRN, Reported on 11/01/2022 Pantoprazole Sodium 40 MG Oral Tablet Delayed Release (Protonix) Take 1 Tablet by mouth in the morning. 0 3 Active Furosemide 20 MG Oral Tablet (Lasix) Take 1 Tablet by mouth in the morning. 30 Tablet 5 3 Active Levothyroxine Sodium 125 MCG Oral Tablet (Levoxyl)Indication s:Acquired hypothyroidism Take 1 Tablet by mouth in the morning. (at least 30 min prior to breakfast or other meds). 30 Tablet 11 3 Active Levothyroxine Sodium 112 MCG Oral Tablet (Levoxyl)Indication s:Acquired hypothyroidism (Take 1 tablet by mouth daily at least 30 min prior to breakfast or other meds) 90 Tablet 3 2 11/04/19 23 Discontinued documented as of this encounter (statuses as of 11/04/2022) Active Problems Problem Noted Date Type 2 [...] . Secondary hyperparathyroidism, non-renal 04/01/2019 [facility] OTHER*[id number] 9 Mild persistent asthma without complicat ion [...] 432 06/2008 PSG -- CPAP 10 cwp [facility] documented as of this encounter (statuses as of 11/04/2022) Resolved Problems Problem Noted Date Resolved Date [...] as of this encounter (statuses as of 11/04/2022) Immunizations Name Administration Dates Next Due Influenza, [...] encounter Miscellaneous Notes * Telephone Encounter - DAVE Villanueva - 11/04/2022 9:51 AM EDT [employer] message sent. * Addendum Note - Nam Squires DO - 11/03/2022 7:34 PM EDTAddended by: NAM SQUIRES on: 11/03/2022 07:34 PM Modules accepted: Orders * Telephone Encounter - Nam Squires DO - 11/03/2022 7:30 PM EDT Lab studies shows diabetes well controlled with hemoglobin A1c level 7.2. Lab shows mildly elevated TSH level. Advise increase levothyroxine 125 mcg once daily and repeat lab for TSH level in 6 weeks. Advise follow with psychiatrist for review of lithium level and possible medication adjustment as per psychiatrist. * Telephone Encounter - Amisha Farr CMA - 11/02/2022 12:30 PM EDT MyChart sent. * Telephone Encounter - BETTY Brice - 11/02/2022 10:24 AM EDT Please let the patient know that I reviewed her blood work. Her renal function is stable. 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 Her BNP was also normal which further suggests against the diagnosis of heart failure. We did start her on Lasix 20 mg daily to aid in peripheral edema and abdominal bloating however I am concerned that her Tull is part of the problem. Tull is known to have risks associated with bradycardia, cardiac arrhythmias, and peripheral edema. I think it would be best for her to reach out to her provider at some point health regarding herlithium dosing. I will forward her results to her CBC as well as thyroid and A1c to her PCP as adjustments may needto be made to other medications. Please have her proceed with nuclear stress testing and echo. Await zio monitor results. Repeat a BMP in 1 week to reassess renal function and electrolytes with Lasix. -BETTY Calixto documented in this encounter Plan of Treatment Upcoming Encounters Date Type Specialty Care Team Description 11/11/2022 Imaging Radiology Gw, Excess Time Radiology [address] [place] [address] 11/17/2022 Cardiac Studies Cardiac Studies 12/05/2022 Office Visit Cardiology Mone Mcgovern CRNP [address] [place] [address] 12/07/2022 Office Visit Gastroenterology Bindu Beltran CRNP [address] [place] [address] 12/15/2022 Office Visit Sleep Disorders Shaniqua Spann DO [address] [place] [address] 01/20/2023 Office Visit Pharmacy [address] [address] 07/03/2023 Imaging Radiology Scheduled Orders Name Type Priority Associated Diagnoses Orde r Schedule BASIC METABOLIC PANEL Lab Routine Bilateral leg edema Expected: 11/09/2022, Expires: 11/03/2023 TSH WITH FREE T4 IF INDICATED Lab Routine Acquired hypothyroidism Expected: 12/12/2022 (Approximate), Expires: 11/03/2023 Scheduled Procedures Name Priority Associated Diagnoses Date/Ti [...] Diagnoses Diagnosis Bilateral leg edema- Primary Edema Acquired hypothyroidism Unspecified hypothyroidism documented in this [...] and were consensually agreed upon. Care Teams Trap Puller Relationship Specialty Start Date End Date Nam Squires DO [address] [place] [address] PCP - General Family Medicine 12/02/19 documented as of this encounter
--- OUTSIDE RECORDS SUMMARY | 2023-04-01 23:36 | External Medical Summary | Summary of Care ---
Author Name Unknown Organization [facility] Address [address] [facility] [place] [address] Phone [phone] Care Team Providers Care Boring Machine Set Up Operator Name Role Phone Nam Squires DO Primary Care Provider Reason for Referral * Evaluate & Treat - Unlimited Visits (Within 30 days (routine)) - Authorized Specialty Diagnoses / Procedures Referred By Contact Referred To Contact Cardiovascular Medicine / Cardiology Diagnoses Palpitations Nam Squires DO [address] [place] [address] Referral ID Status Reason Start Date Expiration Date Visits Requested Visits Authorized [id number] Authorized Specialty Services Required 11/21/2022 999 999 Question Answer Referral Priority Within 30 days (routine) To which of the following clinics are you referring your patient? General Cardiology Clinic Reason for Visit * Reason Onset Date Comments Referral 11/21/2022 Encounter Details Date Type Department Care Team Description 11/21/[address] [facility] [address] [place] [address] Nam Squires DO [address] [place] [address] Referral Allergies Active Allergy Reactions Severity Noted Date [...] as of this encounter (statuses as of 11/21/2022) Medications Medication Sig Dispensed Refills Start Date [...] 2 Tablets before bedtime. 0 03/28/2022 Active [place] Carbonate ER 450 MG Oral Tablet Extended [...] prednisone 3 mL 0 10/15/2022 Active Pen [place] 32G X 5 MMIndications:Hyperg lycemia Use as directed. Use with insulin pen 50 Each 0 10/15/2022 Active Nystatin 293068 UNIT/GM External Powder (Nystop)Indications: Tinea cruris Apply [...] in the morning. 30 Tablet 5 11/01/2022 Active Levothyroxine Sodium 125 MCG Oral [...] as of this encounter (statuses as of 11/21/2022) Active Problems Problem Noted Date Type 2 [...] . Secondary hyperparathyroidism, non-renal 04/01/2019 [facility] OTHER*[id number] 9 Mild persistent asthma without complicat ion [...] 432 06/2008 PSG -- CPAP 10 cwp [facility] documented as of this encounter (statuses as of 11/21/2022) Resolved Problems Problem Noted Date Resolved Date [...] as of this encounter (statuses as of 11/21/2022) Immunizations Name Administration Dates Next Due Influenza, [...] encounter Miscellaneous Notes * Telephone Encounter - Nicol Huang RN - 11/21/2022 4:13 PM EDT Patient requires updated referral for Cardiology evaluation 11/25/22 based on insurance plan. Referral pended, please sign if agreeable. Once signed, please route to scheduling for referral to be linked to appointment. documented in this encounter Plan of Treatment Upcoming Encounters Date Type Specialty Care Team Description 11/25/2022 Office Visit Cardiology Jessica Baer PA-C [address] [place] [address] [place] [address] 12/07/2022 Office Visit Gastroenterology Bindu Beltran CRNP [address] [place] [address] 12/15/2022 Office Visit Sleep Disorders Shaniqua Spann DO [address] [place] [address] 01/20/2023 Office Visit Pharmacy [address] [address] 07/03/2023 Imaging Radiology Scheduled Procedures Name Priority Associated Diagnoses Date/Ti me COLONOSCOPY FLEXIBLE PROXIMA L DIAGNOSTIC Recall Special screening for malignant neoplasms, colon Scheduled Referrals Name Type Priority Associated Diagnoses Orde r Schedule CARDIOLOGY REFERRAL OP Referral Within 30 days (routine) Palpitations Ordered: 11/21/2022 Health Maintenance Due Date Last Done Comments [...] as of this encounter Visit Diagnoses Diagnosis Palpitations- Primary documented in this encounter Advance Directives [...] and were consensually agreed upon. Care Teams Boring Machine Set Up Operator Relationship Specialty Start Date End Date Nam Squires DO [address] [place] [address] PCP - General Family Medicine 12/02/19 documented as of this encounter
--- OUTSIDE RECORDS SUMMARY | 2023-04-01 23:36 | External Medical Summary | Summary of Care ---
Author Name Unknown Organization [facility] Address [address] [facility] [place] [address] Phone [phone] Care Team Providers Care Wall To Wall Carpet Installer Name Role Phone Nam Squires DO Primary Care Provider Reason for Visit * Reason Onset Date Comments Test Results 11/15/2022 Encounter Details Date Type Department Care Team Description 11/15/2022 Telephone Cardiology, [facility] [address] [place] [address] Dianna Alcala CRNP [address] [place] [address] Test Results Allergies Active Allergy Reactions Severity [...] 2 Tablets before bedtime. 0 03/28/2022 Active [place] Carbonate ER 450 MG Oral Tablet Extended [...] prednisone 3 mL 0 10/15/2022 Active Pen [place] 32G X 5 MMIndications:Hyperg lycemia Use as directed. Use with insulin pen 50 Each 0 10/15/2022 Active Nystatin 505008 UNIT/GM External Powder (Nystop)Indications: Tinea cruris Apply [...] . Secondary hyperparathyroidism, non-renal 04/01/2019 [facility] OTHER*[id number] 9 Mild persistent asthma without complicat ion [...] 432 06/2008 PSG -- CPAP 10 cwp [facility] documented as of this encounter (statuses as [...] Miscellaneous Notes * Telephone Encounter - COLTEN Watkins - 11/16/2022 2:18 PM EDT Spoke with pt. Pt is rescheduled for 11/25/22 with Jessica. * Telephone Encounter - Luis Haynes RN [...] headaches and lightheadedness * Telephone Encounter - BETTY Neff - 11/15/2022 10:51 AM EDT Noted. [facility] and recommend [facility] * Telephone Encounter - BETTY Brice [...] Team Description 11/17/2022 Cardiac Studies Cardiac Studies 11/25/2022 Office Visit Cardiology Jessica Baer PA-C [address] [place] [address] [place] [address] 12/07/2022 Office Visit Gastroenterology Bindu Beltran CRNP [address] [place] [address] 12/15/2022 Office Visit Sleep Disorders Shaniqua Spann DO [address] [place] [address] 01/20/2023 Office Visit Pharmacy [facility] [address] [place] [address] [place] [address] 07/03/2023 Imaging Radiology Scheduled Procedures Name Priority [...] and were consensually agreed upon. Care Teams Wall To Wall Carpet Installer Relationship Specialty Start Date End Date Nam Squires DO [address] [place] [address] PCP - General Family Medicine 12/02/19 documented as of this encounter
--- OUTSIDE RECORDS SUMMARY | 2023-04-01 23:36 | External Medical Summary ---
Author Name Unknown Address Unknown Organization K01:[facility] [address] [place] [address] Laboratory Report Ordering Provider Test Date Status KAYODE,SCHWNICANOR 11/22/2022 16:58:48 Final Observation Date Value Abnormality Reference (Units ) Status T4, Free 11/22/2022 16:58:48 1.6 0.9-1.7 (n g/dL) Final Performing Location [facility] [address] [place] [address]
--- OUTSIDE RECORDS SUMMARY | 2023-04-01 23:36 | External Medical Summary | Summary of Care ---
Author Name Unknown Organization [facility] Address [address] [facility] [place] [address] Phone [phone] Care Team Providers Care Circus Trainer Name Role Phone Nam Squires DO Primary Care Provider Reason for Visit * Reason Onset Date Comments Other 11/10/2022 Encounter Details Date Type Department Care Team Description 11/10/2022 Telephone Family Practice [facility] [address] [place] [address] Nam Squires DO [address] [place] [address] Other Allergies Active Allergy Reactions Severity Noted Date [...] as of this encounter (statuses as of 11/11/2022) Medications Medication Sig Dispensed Refills Start Date [...] 2 Tablets before bedtime. 0 03/28/2022 Active [place] Carbonate ER 450 MG Oral Tablet Extended [...] prednisone 3 mL 0 10/15/2022 Active Pen [place] 32G X 5 MMIndications:Hyper glycemia Use as directed. Use with insulin pen 50 Each 0 10/15/2022 Active Nystatin 351352 UNIT/GM External Powder (Nystop)Indications :Tinea cruris Apply [...] the morning. 90 Tablet 3 11/11/2022 Active Pantoprazole Sodium 40 MG Oral Tablet Delayed Release (Protonix) Take 1 Tablet by mouth in the morning. 0 10/26/2022 3 Discontinu ed(Refill) documented as of this encounter (statuses as of 11/11/2022) Active Problems Problem Noted Date Type 2 [...] . Secondary hyperparathyroidism, non-renal 04/01/2019 [facility] OTHER*[id number] 9 Mild persistent asthma without complicat ion [...] 432 06/2008 PSG -- CPAP 10 cwp [facility] documented as of this encounter (statuses as of 11/11/2022) Resolved Problems Problem Noted Date Resolved Date [...] as of this encounter (statuses as of 11/11/2022) Immunizations Name Administration Dates Next Due Influenza, [...] Date Recorded Female 04/19/2019 1:07 PM E Job Start Date Occupation Industry Not on [...] encounter Miscellaneous Notes * Telephone Encounter - Hoda Arrieta CPhT - 11/10/2022 2:57 PM EDT pt calling requesting the following medication below that is listed as "Historical". The following information was provided: Medication Name: pantoprazole Strength: 40 Directions: qd Preferred Quantity: 90 Previous Prescriber: Dr squires Preferred Pharmacy: [id number] Please review and approve if appropriate. Thank you, Hoda Arrieta [facility] Vice President Of Recruiting III [facility]) (formerly Telepharmacy) 11/10/2022,2:57 PM documented in this encounter Plan of Treatment Upcoming Encounters Date Type Specialty Care Team Description 11/17/2022 Cardiac Studies Cardiac Studies 12/05/2022 Office Visit Cardiology Mone Mcgovern CRNP [address] [place] [address] 12/07/2022 Office Visit Gastroenterology Bindu Beltran CRNP [address] [place] [address] 12/15/2022 Office Visit Sleep Disorders Shaniqua Spann DO [address] [place] [address] 01/20/2023 Office Visit Pharmacy [address] [address] 07/03/2023 Imaging Radiology Scheduled Procedures Name Priority [...] as of this encounter Visit Diagnoses Diagnosis Gastroesophageal reflux disease without esophagitis- Primary Esophageal reflux documented in this encounter Advance Directives Latest [...] and were consensually agreed upon. Care Teams Circus Trainer Relationship Specialty Start Date End Date Nam Squires DO [address] [place] [address] PCP - General Family Medicine 12/02/19 documented as of this encounter
--- OUTSIDE RECORDS SUMMARY | 2023-04-01 23:36 | External Medical Summary | Summary of Care ---
Author Name Unknown Organization [facility] Address [address] [facility] [place] [address] Phone [phone] Care Team Providers Care Child Care Director Name Role Phone Nam Squires DO Primary Care Provider [phone] Reason for Referral * Evaluate & Treat - Unlimited Visits (Within 10 days (routine)) - Authorized Specialty Diagnoses / Procedures Referred By Contact Referred To Contact Cardiovascular Medicine / Cardiology Diagnoses Palpitations TRIPP (dyspnea on exertion) Nam Squires DO [address] [place] [address] Referral ID Status Reason Start Date Expiration Date Visits Requested Visits Authorized [id number] Authorized Specialty Services Required 10/26/2022 999 999 Question Answer Referral Priority Within 10 days (routine) To which of the following clinics are you referring your patient? General Cardiology Clinic Reason for Visit * Reason Comments Itch Generalized ithing Medication Discussion Discuss stomach me dication Edema Swelling to both ank les - ongoing for about 2-3 weeks Encounter Details Date Type Department Care Team Description 10/26/2022 Office Visit Family Practice [facility] [address] [place] [address] Nam Squires DO [address] [place] [address] Palpitations*; TRIPP (dyspnea on exertion); Urticaria; Gastroesophageal reflux disease without esophagitis; Tinea cruris Allergies Active Allergy Reactions Severity Noted Date [...] as of this encounter (statuses as of 11/12/2022) Medications Medication Sig Dispensed Refills Start Date [...] 2 Tablets before bedtime. [address] [place] Carbonate ER 450 MG Oral Tablet Extended [...] prednisone 3 mL 0 3 Active Pen [place] 32G X 5 MMIndications:Hype rglycemia Use as directed. Use with insulin pen 50 Each 0 3 Active Nystatin 566152 UNIT/GM External Powder (Nystop)Indication s:Tinea cruris Apply topically to affected area 3 times a day. Apply to affected area skin folds 60 g 0 3 Active Loratadine 10 MG Oral Tablet (Claritin)Indicati ons:Urticaria Take 1 Tablet by mouth in the morning. 30 Tablet 5 3 Active Additional Information Patient taking differently:10 mg OralDAILY PRN, Reported on 11/01/2022 Levothyroxine Sodium 112 MCG Oral Tablet (Levoxyl)Indicatio ns:Acquired hypothyroidism (Take 1 tablet by mouth daily at least 30 min prior to breakfast or other meds) 90 Tablet 3 2 023 Discontinued Pantoprazole Sodium 40 MG Oral Tablet Delayed Release (Protonix)Indicati ons:Gastroesophage al reflux disease without esophagitis Take 1 Tablet by mouth in the morning. 30 minutes before the first meal of the day. Do not crush, split or chew the tablet. 30 Tablet 5 3 023 Discontinued(Me dication/Dose Changed) methylPREDNISolone 4 MG Oral Tablet Therapy Pack (Medrol Dosepack)Indicatio ns:Allergic contact dermatitis due to plants, except food follow package directions 21 Tablet 0 3 023 Discontinued(Christopher magallon preference/disc ontinuation) Omeprazole 20 MG Oral Capsule Delayed Release (PriLOSEC)Indicati ons:Gastroesophage al reflux disease without esophagitis Take 2 Capsules by mouth in the morning. 1 hour before the first meal of the day. 60 Capsule 2 3 023 Discontinued(Me dication/Dose Changed) documented as of this encounter (statuses as of 11/12/2022) Active Problems Problem Noted Date Type 2 [...] . Secondary hyperparathyroidism, non-renal 04/01/2019 [facility] OTHER*[id number] 9 Mild persistent asthma without complicat ion [...] as of this encounter (statuses as of 11/12/2022) Resolved Problems Problem Noted Date Resolved Date [...] as of this encounter (statuses as of 11/12/2022) Immunizations Name Administration Dates Next Due Influenza, [...] Sign Reading Time Taken Comments Blood Pressure 118/56 10/26/2022 8:14 AM EDT Pulse 48 10/26/2022 8:14 AM EDT Temperature 36.3 C (97.3 F) 10/26/2022 8:14 AM ED T Respiratory Rate 16 10/26/2022 8:14 AM EDT Oxygen Saturation - - Inhaled Oxygen Concentration - - Weight 87.6 kg (193 lb 3.2 oz) 10/26/2022 8:14 A M EDT Height - - Body Mass Index 33.16 10/13/2022 6:11 PM EDT documented in this [...] as of this encounter Progress Notes * Nam Squires, - 10/26/2022 8:45 AM EDT Images from the original note were not included. History of Present Illness Joyce Smith is a 57 year old female that presents for Itch (Generalized ithing), Medication Discussion (Discuss stomach medication), and Edema (Swelling to both ankles - ongoing for about 2-3 weeks) Patient is a 57-year-old female with complaint of generalized itching rash with rash in skin fold areas under breast and groin. Patient also complains of chronic intermittent heartburn. Patient denies abdominal pain nausea vomiting diarrhea constipation melena hematochezia. Patient complains intermittent palpitations and dyspnea on exertion with ankle edema. Patient denies chest pain. Patient denies lightheadedness or syncope. Patient denies cough or sputum. Patient denies fatigue fever chills or sweats. Review of systems otherwise negative Physical Exam Vitals: 10/26/22 0814 Temp: 36.3 C (97.3 F) Pulse: 48 Resp: 16 BP: 118/56 General: alert, healthy, and no distress Head: Normocephalic, No masses, lesions, tenderness or abnormalities Eye Exam: PERRLA, extraocular movements intact, conjunctiva are pink and non- injected, sclera clear Ears: External ears normal, Canals clear, TM's Normal Nose: no mucosal erythema, no mucosal edema, no purulent discharge Oropharynx: no exudate, no erythema, lips, buccal mucosa, and tongue normal, and mucous membranes are moist Neck: supple, no adenopathy, no bruits, thyroid normal size, non-tender, without nodularity Lymph: no palpable lymphadenopathy Heart: Sinus bradycardia no murmur, and no gallops Lungs: chest symmetric with normal AP diameter, no chest deformities noted, no chest wall tenderness, lungs clear to auscultation Pulses: carotid=2/4 w/o bruits Abdomen: abdomen soft, nondistended, tender epigastric, no guarding rebound or rigidity normal bowel sounds, and no masses or organomegaly Extremities: No edema cyanosis or clubbing Skin normal skin color turgor texture, diffuse erythematous maculopapular rash, no vesicular pustular lesions I have reviewed the following results: Marked sinus bradycardia with PACs, when compared to EKG 12/11/2020 PACs are now present, nonspecific T-wave abnormality no longer evident in anterior lateral leads Assessment and Plan Palpitations - EKG; Future - CARDIOLOGY REFERRAL OP - EXTERNAL EKG 8 TO 15 DAYS; Future TRIPP (dyspnea on exertion) - EKG; Future - CARDIOLOGY REFERRAL OP Urticaria Loratadine 10 MG Oral Tablet (Claritin); Take 1 Tablet by mouth in the morning. (Patient taking differently: Take 1 Tablet by mouth daily as needed.) Gastroesophageal reflux disease without esophagitis Omeprazole 20 mg 2 caps once daily Tinea cruris - Nystatin 203988 UNIT/GM External Powder (Nystop); Apply topically to affected area 3 times a day.Apply to affected area skin folds Wrap-Up Time: I spent a total of 20-29 minutes (exact time 20 mins) on the date of service in preparation, delivery, and documentation of the care provided to Joyce Smith excluding any time spent in the performance of separately billed services. documented in this encounter Nursing Notes * Rory Howard RN - 10/26/2022 8:11 AM EDT Chief Complaint Patient presents with Itch Generalized ithing Medication Discussion Discuss stomach medication Edema Swelling to both ankles - ongoing for about 2-3 weeks documented in this encounter Plan of Treatment Upcoming Encounters Date Type Specialty Care Team Description 11/17/2022 Cardiac Studies Cardiac Studies 12/05/2022 Office Visit Cardiology Mone Mcgovern CRNP [address] [place] [address] 12/07/2022 Office Visit Gastroenterology Bindu Beltran CRNP [address] [place] [address] 12/15/2022 Office Visit Sleep Disorders Shaniqua Spann DO [address] [place] [address] 01/20/2023 Office Visit Pharmacy [address] [address] 07/03/2023 Imaging Radiology Scheduled Procedures Name Priority Associated Diagnoses Date/Ti me COLONOSCOPY FLEXIBLE PROXIMA L DIAGNOSTIC Recall Special screening for malignant neoplasms, colon Scheduled Referrals Name Type Priority Associated Diagnoses Orde r Schedule CARDIOLOGY REFERRAL OP Referral Within 10 days (routine) Palpitations TRIPP (dyspnea on exertion) Ordered: 10/26/2022 Health Maintenance Due Date Last Done Comments [...] Not on filedocumented as of this encounter Results * EXTERNAL EKG 8 TO 15 DAYS (11/08/2022 12:00 AM EDT) 11/08/2022 Procedure Note Douglas Jamil, DO - 11/08/2022 12:00 AM EDT REASON FOR STUDY: palpitations CONCLUSIONS: Preliminary Findings Prepared by MAYNOR Abel 11/10/22 Final Interpretation Duration: 7 days, 20 hours ranging from 10/26/2022 until 11/03/2022. Patient had a min HR of 34 bpm, max HR of 148 bpm, and avg HR of 56 bpm. Predominant underlying rhythm was Sinus Rhythm. 9 Supraventricular Tachycardia runs occurred, the run with the fastest interval lasting 4 beats with a max rate of 148 bpm, the longest [id number] beats with an avg rate of 95 bpm. Supraventricular Tachycardia was detected within +/- 45 seconds of symptomatic patient event(s). Isolated SVEs were rare (<1.0%), SVE Couplets were rare (<1.0%), and SVE Triplets were rare (<1.0%). Isolated VEs were rare (<1.0%), and no VE Couplets or VE Triplets were present. Thirty-five patient triggered events and 8 diary events were submittedfor review. Interpretation of several the events is technicallylimited due to the presence of artifact. The majority of events correlate withnormal sinus rhythm, and normal sinus rhythm with premature atrial contractions. One event correlates with the 4 beat run ofsupraventricular tachycardia. The overall frequency of the prematureatrial contractions was rare. Refer to rhythm strips available for review under the MUSE link foradditional detail with regards to the patient's subjective symptomsreported with numerous diary events. Nam Shaw DO HOLTER Performing Organization Address [facility] Co de Phone Number tribr CARDIOLOGY * EKG (10/26/2022 7:39 AM EDT) 10/26/2022 7:39 AM EDT Procedure Note Douglas Jamil, DO - 10/26/2022 7:39 AM EDT REASON FOR STUDY: PALPS CONCLUSIONS: Marked sinus bradycardia with Premature atrial complexes Abnormal ECG When compared with ECG of 11-DEC-2020 13:19, Premature atrial complexes are now Present Nonspecific T wave abnormality no longer evident in Anterior-lateralleads Ventricular Rate: 48 Atrial Rate: 48 [place] Interval: 186 QRS Duration: 86 QT/QTc: 472/421 ms P-R-T [place]: 54 : 30 : 64 degrees [facility] EKG Performing Organization Address [facility] de Phone Number tribr CARDIOLOGY documented in this encounter Visit Diagnoses Diagnosis Palpitations- Primary TRIPP (dyspnea on exertion) Other dyspnea and respiratory abnormality Urticaria Urticaria, unspecified Gastroesophageal reflux disease without esophagitis Esophageal reflux Tinea cruris Dermatophytosis of groin and perianal area Palpitations TRIPP (dyspnea on exertion) Other dyspnea and respiratory abnormality Palpitations documented in this encounter Advance Directives Latest [...] and were consensually agreed upon. Care Teams Child Care Director Relationship Specialty Start Date End Date aNm Squires DO [address] [place] [address] PCP - General Family Medicine 12/02/19 documented as of this encounter
--- OUTSIDE RECORDS SUMMARY | 2023-04-01 23:37 | External Medical Summary | Summary of Care ---
Author Name Unknown Organization [facility] Address [address] [place] [address] Phone [phone] Care Team Providers Care Transaction Coordinator Name Role Phone Nam Squires DO Primary Care Provider Encounter Details Date Type Department Care Team Description 11/01/2022 Telephone Cardiology, [facility] [address] [place] [address] Dianna Alcala CRNP [address] [place] [address] Allergies Active Allergy Reactions Severity Noted Date [...] as of this encounter (statuses as of 11/01/2022) Medications Medication Sig Dispensed Refills Start Date End Date Status BD INSULIN SYRINGE ULTRAFINE 30G X 1/2" 0.3 ML MISC As directed 0 12/15/2014 Active Glucose Blood (Opicos CONTOUR NEXT TEST) STRPIndications:DM type 2, not at goal (HCC) Use to test blood sugar 6 times daily dx e11.9 540 Strip 3 01/29/2019 Active CPAP every night at bedtime. 0 Active Levothyroxine Sodium 112 MCG Oral Tablet (Levoxyl)Indications :Acquired hypothyroidism (Take 1 tablet by mouth daily at least 30 min prior to breakfast or other meds) 90 Tablet 3 12/09/2021 Active busPIRone HCl 10 MG Oral Tablet (Buspar) 2 Tablets in the morning and 2 Tablets before bedtime. 0 03/28/2022 Active [place] Carbonate ER 450 MG Oral Tablet Extended [...] prednisone 3 mL 0 10/15/2022 Active Pen P[place] 32G X 5 MMIndications:Hyperg lycemia Use as directed. Use with insulin pen 50 Each 0 10/15/2022 Active Nystatin 922374 UNIT/GM External Powder (Nystop)Indications: Tinea cruris Apply [...] by mouth in the morning. 0 10/26/2022 Active Furosemide 20 MG Oral Tablet (Lasix) Take 1 Tablet by mouth in the morning. 30 Tablet 5 11/01/2022 Active documented as of this encounter (statuses as of 11/01/2022) Active Problems Problem Noted Date Type 2 [...] . Secondary hyperparathyroidism, non-renal 04/01/2019 [facility] OTHER*[id number] 9 Mild persistent asthma without complicat ion [...] 432 06/2008 PSG -- CPAP 10 cwp [facility] documented as of this encounter (statuses as of 11/01/2022) Resolved Problems Problem Noted Date Resolved Date [...] as of this encounter (statuses as of 11/01/2022) Immunizations Name Administration Dates Next Due Influenza, [...] Telephone Encounter - Amisha Farr CMA - 11/01/2022 2:15 PM EDT Faxed note. (f): Successful confirmation received. * Telephone Encounter - BETTY Brice - 11/01/2022 2:07 PM EDT Please fax my office note from today to her provider at [facility] BETTY Calixto * Telephone Encounter - BETTY Brice - 11/01/2022 12:52 PM EDT MyG sent regarding lithium use. BETTY Calixto documented in this encounter Plan of Treatment Upcoming Encounters Date Type Specialty Care Team Description 11/11/2022 Imaging Radiology Gw, Excess Time Radiology [address] [place] [address] 11/17/2022 Cardiac Studies Cardiac Studies 12/05/2022 Office Visit Cardiology Mone Mcgovern CRNP [address] [place] [address] 12/07/2022 Office Visit Gastroenterology Bindu Beltran CRNP [address] [place] [address] 12/15/2022 Office Visit Sleep Disorders Shaniqua Spann, [address] [place] [address] 01/20/2023 Office Visit Pharmacy [address] [address] 07/03/2023 Imaging Radiology Scheduled Procedures Name Priority [...] 01/20/2020, 07/12, 09/23/2013, Additional history exists HbA1c 03/02/2023 08/31/2022, 11/12, 08/03/2021, Additional history exists DIABETES-EYE EXAM 06/17/2023 06/16/2022, , 06/03/2021, Additional history exists Mammogram 06/28/2023 06/27/2022, 12/0 05/2020, 12/25/2019, Additional history exists GFR 09/01/2023 08/31/2022, 08, 09/29/2021, Additional history exists TSH 09/01/2023 08/31/2022, 07/12, 08/21/2020, Additional history exists Cologuard 10/20/2023 10/19/2020, 06/06/2017 Lipid Panel 09/02/2024 09/03/2019, 03/14, 12/23/2017, Additional [...] and were consensually agreed upon. Care Teams Transaction Coordinator Relationship Specialty Start Date End Date Nam Squires DO [address] [place] [address] PCP - General Family Medicine 12/02/19 documented as of this encounter
--- OUTSIDE RECORDS SUMMARY | 2023-04-01 23:37 | External Medical Summary | Summary of Care ---
Author Name Unknown Organization [facility] Address [address] [facility] [place] [address] Phone [phone] Care Team Providers Care Social Service Agency Director Name Role Phone Nam Squires DO Primary Care Provider [phone] Reason for Visit * Reason Onset Date Comments Test Results 11/02/2022 Encounter Details Date Type Department Care Team Description 11/02/2022 Telephone Cardiology, [facility] [address] [place] [address] Dianna Alcala CRNP [address] [facility] [place] [address] Test Results Allergies Active Allergy Reactions Severity [...] as of this encounter (statuses as of 11/03/2022) Medications Medication Sig Dispensed Refills Start Date [...] 2 Tablets before bedtime. 0 3 Active Henrietta Carbonate ER 450 MG Oral Tablet Extended [...] prednisone 3 mL 0 3 Active Pen [place] 32G X 5 MMIndications:Hyper glycemia Use as directed. Use with insulin pen 50 Each 0 3 Active Nystatin 834805 UNIT/GM External Powder (Nystop)Indications :Tinea cruris Apply [...] as of this encounter (statuses as of 11/03/2022) Active Problems Problem Noted Date Type 2 [...] . Secondary hyperparathyroidism, non-renal 04/01/2019 [facility] OTHER*[id number] 9 Mild persistent asthma without complicat ion [...] 432 06/2008 PSG -- CPAP 10 cwp [facility] documented as of this encounter (statuses as of 11/03/2022) Resolved Problems Problem Noted Date Resolved Date [...] as of this encounter (statuses as of 11/03/2022) Immunizations Name Administration Dates Next Due Influenza, [...] as of this encounter Miscellaneous Notes * Addendum Note - Nam Squires DO [...] could indicate that she is on the sock drier side. Her BNP was also normal which further suggests against the diagnosis of heart failure. We did start her on Lasix 20 mg daily to aid in peripheral edema and abdominal bloating however I am concerned that her Henrietta is part of the problem. Henrietta is known to have risks associated with [...] reassess renal function and electrolytes with Lasix. -BTETY Calixto documented in this encounter Plan of Treatment Upcoming Encounters Date Type Specialty Care Team Description 11/11/2022 Imaging Radiology Gw, Excess Time Radiology [address] [place] [address] 11/17/2022 Cardiac Studies Cardiac Studies 12/05/2022 Office Visit Cardiology Mone Mcgovern CRNP [address] [place] [address] 12/07/2022 Office Visit Gastroenterology Bindu Beltran, BETTY [address] [place] [address] 12/15/2022 Office Visit Sleep Disorders Spann Shaniqua Velasco, [address] [place] [address] 01/20/2023 [facility] [place] [id number] [facility] [address] 07/[facility]/2023 Imaging Radiology Scheduled Orders Name Type [...] 12/22/2018, 04/06/2018, Additional history exists Albumin/Creatinine Ratio 12/08/202212/08/ 022, 06/06/2020, 03/09/2017, Additional history exists Cervical [...] were consensually agreed upon. Care Teams Social Service Agency Director Relationship Specialty Start Date End Date Nam Squires DO [address] [place] [address] PCP - General Family Medicine 12/02/19 documented as of this encounter
--- OUTSIDE RECORDS SUMMARY | 2023-04-01 23:37 | External Medical Summary | Summary of Care ---
Author Name Unknown Organization [facility] Address [address] [facility] [place] [address] Phone [phone] Care Team Providers Care Hardware Design Engineer Name Role Phone ShawNam Primary Care Provider Reason for Referral * Precert (Within 10 days (routine)) - Pending Review Specialty Diagnoses / Procedures Referred By Contac t Referred To Contact Radiology Diagnoses Heart palpitations Premature atrial contraction Fatigue, unspecified type TRIPP (dyspnea on exertion) Chest tightness HTN, goal below 140/90 Hyperlipemia, mixed Procedures NM MYOCARD PERF IMG SPECT MULT STUDIES WITH PHARM INTERV Carisa Simmons CRNP [address] [place] [address] Referral ID Status Reason Start Date Expiration Date Visits Requested Visits Authorized [id number] Pending Review Precert 11/01/2022 999 999 * Precert (Within 10 days (routine)) - Authorized Specialty Diagnoses / Procedures Referred By Contac t Referred To Contact Cardiac Studies Diagnoses Heart palpitations Premature atrial contraction Fatigue, unspecified type TRIPP (dyspnea on exertion) Chest tightness HTN, goal below 140/90 Hyperlipemia, mixed Procedures ECHO, COMPLETE (2D), TRANS-THORACIC Carisa Simmons CRNP [address] [place] [address] Referral ID Status Reason Start Date Expiration Date V isits Requested Visits Authorized [id number] Authorized Precert 11/01/2022 999 999 Reason for Visit * Reason Comments NEW PATIENT C/o worsening heart palpitations, states she used to have them intermittently but they have increased over the past month. Also reports LE edema and fatigue. * Evaluate & Treat - Unlimited Visits (Within 10 days (routine)) - Authorized Specialty Diagnoses / Procedures Referred By Contact Referred To Contact Cardiovascular Medicine / Cardiology Diagnoses Palpitations TRIPP (dyspnea on exertion) Nam Squires DO [address] [facility] [place] [address] Referral ID Status Reason Start Date Expiration Date Visits Requested Visits Authorized [id number] Authorized Specialty Services Required 10/26/2022 999 999 Encounter Details Date Type Department Care Team Description 11/01/2022 Office Visit Cardiology, [facility] [address] [facility] [place] [address] Carisa Simmons CRNP [address] [facility], [place] [address] Chest tightness*; Bradycardia; TRIPP (dyspnea on exertion); Heart palpitations; Fatigue, unspecified type; Bilateral leg edema; Diastolic [...] 2 Tablets before bedtime. 0 03/28/2022 Active Light Oak Carbonate ER 450 MG Oral Tablet Extended [...] prednisone 3 mL 0 10/15/2022 Active Pen [place] 32G X 5 MMIndications:Hyper glycemia Use as directed. Use with insulin pen 50 Each 0 10/15/2022 Active Nystatin 918808 UNIT/GM External Powder (Nystop)Indications :Tinea cruris Apply [...] the morning. 30 Tablet 5 11/01/2022 Active Omeprazole 20 MG Oral Capsule Delayed Release (PriLOSEC)Indicatio ns:Gastroesophageal reflux disease without esophagitis Take 2 Capsules by mouth in the morning. 1 hour before the first meal of the day. 60 Capsule 2 10/26/2022 3 Discontinu ed(Medicat ion/Dose Changed) documented as of this encounter (statuses [...] . Secondary hyperparathyroidism, non-renal 04/01/2019 [facility] OTHER*[id number] 9 Mild persistent asthma without complicat ion [...] Sign Reading Time Taken Comments Blood Pressure 136/80 11/01/2022 11:39 AM EDT Pulse 48 11/01/2022 11:39 AM EDT Temperature - - Respiratory Rate 12 11/01/2022 11:39 AM EDT Oxygen Saturation 97% 11/01/2022 11:39 AM EDT Inhaled Oxygen Concentration - - Weight 89.5 kg (197 lb 4 oz) 11/01/2022 11:39 AM EDT Height - - Body Mass Index 33.86 10/13/2022 6:11 PM EDT documented in this [...] of this encounter Progress Notes * BETTY Brice - 11/01/2022 11:30 AM EDT Cardiology Outpatient Visit 11/01/2022 Primary Cook Fish Eggs: NEW PATIENT Past medical history: Palpitations PACs on EKG Sinus bradycardia Hypertension Hyperlipidemia GERD 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 EKG was showing marked sinus bradycardia with PACs rates in the 40s. It appears that her heart rates have been bradycardic dating back to 2017. Patient currently wearing a zio monitor. Patient's cardiac history dates back to March of 2019 when she presented prior to gastric bypass surgery and was found to have a slow resting heart rate. She is not on any AV lexi blocking agents and was asymptomatic. She proceeded with gastric bypass surgery and lost a total of about 200 lb. After this surgery she had significant increase in energy in her overall functional capacity. She was feeling well up until about a month and a half ago where she started noticing profound fatigue and low stamina. She has also been noticing exertional chest discomfort and shortness of breath as well as tachy palpitations. Normally heart rates range in the low 40s to 50s and she is asymptomatic however most recently she has been having lightheadedness at rest or with exertion. No syncope. Weight has increased substantially over the last few months-- she has gained 20 lb since August. She is noticing lower extremity edema, abdominal bloating and orthopnea. She is normally very compliant with her CPAP however the last 3 months she felt as though she is suffocating while using it and has since stopped. No fever, chills, cough, hematochezia, melena, or hemoptysis. Patient had a prior DSE in February 2018 due to shortness of breath which was negative for inducible ischemia. LVEF was preserved with grade 2 diastolic dysfunction. No significant valvular diease. BP was hypertensive. Patient tries to be compliant with her medications however does have some trouble remember her levothyroxine. She has also been having very labile blood sugars ranging from 500-600 and as low as 50s at times. She enjoys working outside when she is able to but denies any known tick bites. She is a nonsmoker.No routine alcohol use. No drug use. Denies previous myocardial infarction, cardiac catheterization, coronary artery bypass grafting, a history of congestive heart failure, valvular disease or rheumatic fever, or history of arrhythmia. Family history of coronary artery disease. Mother suffered from multiple MIs ultimately undergoing CABG x3 with diagnosis of heart failure, hypertension, and hyperlipidemia. Father also had nondescript heart disease Current Outpatient Medications Medication Sig Dispense Refill CPAP every night at bedtime. Levothyroxine Sodium 112 MCG Oral Tablet (Levoxyl) (Take 1 tablet by mouth daily at least 30 min prior to breakfast or other meds) 90 Tablet 3 busPIRone HCl 10 MG Oral Tablet (Buspar) 2 Tablets in the morning and 2 Tablets before bedtime. Light Oak Carbonate ER 450 MG Oral Tablet Extended Release (Lithobid ER) Take 1 Tablet by mouth in the morning. In the morning.. rOPINIRole HCl 0.5 MG Oral Tablet (Requip) Take 1 Tablet by mouth in the morning and 1 Tablet at noon and 1 Tablet before bedtime. 90 Tablet 3 Meclizine HCl 25 MG Oral Tablet (Antivert) [...] while on prednisone 3 mL 0 Nystatin [id number] UNIT/GM External Powder (Nystop) Apply topically to affected area 3 times a day. Apply to affected area skin folds 60 g 0 Loratadine 10 MG Oral Tablet (Claritin) Take 1 Tablet by mouth in the morning. (Patient taking differently: Take 1 Tablet by mouth daily as needed.) 30 Tablet 5 Pantoprazole Sodium 40 MG Oral Tablet Delayed [...] times daily dx e11.9 540 Strip 3 Syringe 25G X 1" 3 ML Use as directed for B12 injection once monthly 50 Each 0 Pen [place] 32G X 5 MM Use as directed. Use with insulin pen 50 Each 0 No current facility-administered medications for this visit. 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 Dyer Bipolar I disorder, most recent episode depressed, mild ([facility]) 01/28/[address] Dyer BMI 40.0-44.9, adult ([facility]) 06/07/2020 Bunion of great toe of [...] Lucero DM type 2, not at goal ([facility]) 01/29/2014 = 8.6 Dyslipidemia 02/26/2009 Per [...] performed by Chun Bravo MD at ENDOSCOPY [facility] COLONOSCOPY, DIAGNOSTIC (RECTUM) 10/06/2022 COLONOSCOPY FLEXIBLE PROXIMAL DIAGNOSTIC performed by Chun Bravo MD at ENDOSCOPY [facility] DILATION AND CURETTAGE (D&C) N/A 09/16/2016 DILATION AND CURETTAGE performed by Moses Taylor DO at OR [facility] EGD, FLEXIBLE, DIAGNOSTIC 2009 EGD, FLEXIBLE, DIAGNOSTIC 10/25/2017 benign fundic gland polyp, acid reflux/[facility] EGD, FLEXIBLE, DIAGNOSTIC N/A 04/11/2019 ESOPHAGOGASTRODUODENOSCOPY (EGD), FLEXIBLE, TRANSORAL, DIAGNOSTIC performed by Escobar Leon, [facility] OR [facility] EGD, FLEXIBLE, DIAGNOSTIC N/A 07/20/2020 ESOPHAGOGASTRODUODENOSCOPY (EGD), FLEXIBLE, TRANSORAL, DIAGNOSTIC performed by Brendon Berg DO at ENDOSCOPY [facility] EGD, FLEXIBLE, DIAGNOSTIC N/A 02/03/2021 ESOPHAGOGASTRODUODENOSCOPY (EGD), FLEXIBLE, TRANSORAL, DIAGNOSTIC performed by Escobar Leon [facility] OR [facility] EGD, FLEXIBLE, DIAGNOSTIC N/A 03/26/2021 ESOPHAGOGASTRODUODENOSCOPY (EGD), FLEXIBLE, TRANSORAL, DIAGNOSTIC performed by Escobar Leon [facility] OR [facility] EGD, FLEXIBLE, DIAGNOSTIC 06/09/2021 normal bx / ESOPHAGOGASTRODUODENOSCOPY (EGD), FLEXIBLE, TRANSORAL, DIAGNOSTIC performed by Carlotta Duke MD at ENDOSCOPY [facility] EGD, FLEXIBLE, DIAGNOSTIC 11/06/2021 Gastroparesis / INPT [facility] EGD, FLEXIBLE, DIAGNOSTIC 10/06/2022 ESOPHAGOGASTRODUODENOSCOPY (EGD), FLEXIBLE, TRANSORAL, DIAGNOSTIC performed by Chun Bravo MD at ENDOSCOPY [facility] EGD, W/ENDOSCOPIC US N/A 06/12/2018 ESOPHAGOGASTRODUODENOSCOPY (EGD), FLEXIBLE, TRANSORAL, ENDOSCOPIC ULTRASOUND performed by Hema Pino DO at ENDOSCOPY [facility] ESOPH FUNCT/REFLUX TEST,MUCOSAL PH 07/20/2020 GASTRO REFLUX TEST WITH MUCOSAL TELEMETRY PH ELECTRODE performed by Brendon Berg DO at [facility] INSERT INTRAUTERINE DEVICE (IUD) N/A 09/16/2016 INSERTION OF INTRAUTERINE DEVICE performed by Moses Taylor DO at OR [facility] KNEE ARTHROSCOPY/SURGERY meniscus tear LAPAROSCOPE PROCEDURE, LIVER N/A 04/11/2019 UNLISTED LAPAROSCOPIC PROCEDURE LIVER performed by Escobar Leon MD at [facility] LAPAROSCOPIC GASTRIC BYPASS/GUCCI-EN-Y N/A 04/11/2019 LAPAROSCOPIC GASTRIC RESTRICTIVE BYPASS GUCCI EN Y performed by Escobar Leon MD at [facility] LAPAROSCOPY; CHOLECYSTECTOMY N/A 04/11/2019 LAPAROSCOPIC CHOLECYSTECTOMY performed by Escobar Leon MD at [facility] LAPAROSCOPY; CHOLECYSTECTOMY N/A 03/26/2021 LAPAROSCOPIC CHOLECYSTECTOMY performed by Escobar Leon MD at [facility] PARAESOPHAGEAL HERNIA REPAIR, LAP W/ MESH N/A 03/26/2021 LAPAROSCOPIC PARAESOPHAGEAL HERNIA REPAIR W/MESH performed by Escobar Leon MD at [facility] PARAESOPHAGEAL HERNIA REPAIR, LAP W/O MESH N/A 03/26/2021 LAPAROSCOPIC PARAESOPHAGEAL HERNIA REPAIR WO/ MESH performed by Escobar Leon MD at [facility] TRANSECTION VAGUS NRV,TRUNCAL Bilateral 03/26/2021 LAPAROSCOPIC TRANSECTION VAGUS NERVES TRUNCAL performed by Escobar Leon MD at OR [facility] Social History Tobacco Use Smoking status: Never [...] comment) Strange feeling in head per patient Review of Systems: See HPI for pertinent positives. All others negative, other than those noted in HPI. Physical Exam BP 136/80 (BP Site: Left Arm, BP Position: Sitting, BP Cuff Size: Large) | Pulse 48 | Resp 12 | Wt 89.5 kg (197 lb 4 oz) | SpO2 97% | BMI 33.86 kg/m | BSA 2.01 m General: No acute distress. A+Ox3. HEENT: Normocephalic. Atraumatic. Conjunctiva and sclera clear. NECK: No carotid bruits. + JVD. Carotid upstrokes are brisk. Heart: RRR. S1 and S2 noted. +2/6 diastolic murmur. Lungs: Clear to auscultation. No wheezes, rhonchi, rales. Abdomen: Normal bowel sounds. Soft/ bloated. Nontender. No masses or organomegaly. No abdominal bruits. Extremities: +2 BLLE pitting edema to shins. No clubbing or cyanosis. Pulses: radial=2/4, posterior tibial=2/4, dorsalis pedis = 2/4. NEURO: No focal deficits. PSYCH: Normal. Lab data/imaging study review: DSE 02/2018 The primary indication after review was deemed appropriate and the examination was performed. The stress echo is negative for inducible ischemia. No arrhythmias. Normal HR and BP response to dobutamine infsuion. At rest, normal LV chamber size with mild concentric LVH. Normal LV systolic function without regional wall motion abnormality, EF 55-60%. Grade II diastolic dysfunction. Poorly visualized valvular structures without significant stenosis or regurgitation by Doppler. Impression/Plan: 1. Chest tightness 2. Bradycardia 3. TRIPP (dyspnea on exertion) 4. Heart palpitations 5. Fatigue, unspecified type -Patient with concerns regarding exertional chest discomfort and dyspnea. Also notable fatigue functional capacity. -EKG revealing marked sinus bradycardia- It appears that there may have been additional p-waves throughout the tracing dated 10/26/2022, however, that is not reflected on EKG repeated today in office.?Possibly artifact vs intermittent heart block. -ASCVD risk factors include, poorly controlled DM, HLD, obesity, and family history. Full panel blood work ordered including a CBC, CMP, BNP, TSH/free T4, hemoglobin A1c, and tick-borne illness panel. Patient carries a history of bipolar disorder and is on lithium. I will add on a lithium panel in reach out to her PCP- there is risk for conduction system disease and bradycardia/same node dysfunction after long-term use. There is also risk for peripheral edema and hypotension with the use of thismedication. This medication may ultimately need weaned vs discontinued. Nuclear stress test ordered to rule out ischemic cause of symptoms. Will avoid exercise stress testdue to orthopedic limitations. Patient not a candidate for a dobutamine stress due to history of bradycardia and palpitations/PACs. Resting echo ordered to assess structural heart, diastolic murmur auscultated on exam. Patient actively wearing a zio monitor- will assess for heart block, pauses, and other signs of conduction system disease. 6. Bilateral leg edema 7. Diastolic murmur -Patient appears hypervolemic on exam with a 20 lb weight gain, lower extremity edema, abdominal bloating, and orthopnea. -Low-pitched diastolic murmur auscultated on exam Start Lasix 20 mg daily-plan on repeating a BMP in 1 week. ? Light Oak use contributing to hypervolemia Echo obtained to rule out new onset CHF and assess valvular status in the setting of diastolic murmur. 8. HTN, goal below 140/90 Controlled. 8. Hyperlipemia, mixed Uncontrolled in the past. Family history of heart disease Update lipid panel- will likely need to add statin therapy. The patient agrees to the above plan and will call with additional questions or concerns. ER with all emergencies advised. Follow-up: Return in about 4 weeks (around 11/29/2022). | Check-out note: Labs today. Nuclear stressand echo GORGE. This was a prolonged appt. I spent a total of 90 minutes on the date of service in preparation, delivery, and documentation of the care provided to Joyce Smith excluding any time spent in the performance of separately billed services. BETTY Gomez [facility], Department of Cardiology This chart was completed in part utilizing [facility] ([employer]) Speech Voice Recognition Software. Grammatical errors, random word insertions, prounoun errors, and incomplete sentences are an occasional consequence of this system due to software limitations, ambient noise, and hardware issues. Any formal questions or concerns about the content, text, or information contained within the body of this dictation should be directly addressed to the provider for clarification. documented in this encounter Nursing Notes * Amisha Farr CMA - 11/01/2022 11:35 AM EDT Chief Complaint Patient presents with NEW PATIENT C/o worsening heart palpitations, states she used to have them intermittently but they have increased over the past month. Also reports LE edema and fatigue. Examination Room: 7 Name: Joyce Smith Date of : (1965). Reason for Visit: New patient Interim Hospitalization(s): none Problems/Concerns: Reports hx of heart murmur, FHx of heart disease. Chest Pain/SOB: C/o occasional chest tightness, SOB with exertion. [facility] Discussed: No [facility] is a way you can [...] Miscellaneous Notes * Addendum Note - BETTY Brice - 11/01/2022 1:58 PM EDTAddended by: CARISA SIMMONS on: 11/01/2022 01:58 PM Modules accepted: Orders documented in this encounter Plan of Treatment Upcoming Encounters Date Type Specialty Care Team Description 11/11/2022 Imaging Radiology Gw, Excess Time Radiology [address] [place] [address] 11/17/2022 Cardiac Studies Cardiac Studies 12/05/2022 Office Visit Cardiology Mone Mcgovern CRNP [address] [place] [address] 12/07/2022 Office Visit Gastroenterology Bindu Beltran CRNP [address] [place] [address] 12/15/2022 Office Visit Sleep Disorders Shaniqua Spann DO [address] [place] [address] 01/20/2023 Office Visit Pharmacy [facility] [address] [place] [address] 07/03/2023 Imaging Radiology Pending Results Name Type Priority Associated Diagnoses Date /Time COMPREHENSIVE METABOLIC PANEL Lab Routine Heart palpitations Premature atrial contraction Fatigue, unspecified type TRIPP (dyspnea on exertion) Chest tightness HTN, goal below 140/90 Hyperlipemia, mixed 11/01/2022 12:40 PM EDT TSH WITH FREE T4 IF INDICATED Lab Routine Heart palpitations Premature atrial contraction Fatigue, unspecified type TRIPP (dyspnea on exertion) Chest tightness HTN, goal below 140/90 Hyperlipemia, mixed 11/01/2022 12:40 PM EDT LYME DISEASE ANTIBODY SCREEN WITH REFLEX TO CONFIRMATION Lab Routine Heart palpitations Premature atrial contraction Fatigue, unspecified type TRIPP (dyspnea on exertion) Chest tightness HTN, goal below 140/90 Hyperlipemia, mixed 11/01/2022 12:40 PM EDT ANAPLASMA PHAGOCYTOPHILUM DNA, QL REAL-TIME PCR Lab Routine Heart palpitations Premature atrial contraction Fatigue, unspecified type TRIPP (dyspnea on exertion) Chest tightness HTN, goal below 140/90 Hyperlipemia, mixed 11/01/2022 12:40 PM EDT BNP, NT-PRO Lab Routine Heart palpitations Premature atrial contraction Fatigue, unspecified type TRIPP (dyspnea on exertion) Chest tightness HTN, goal below 140/90 Hyperlipemia, mixed 11/01/2022 12:40 PM EDT HEMOGLOBIN A1C Lab Routine Heart palpitations Premature atrial contraction Fatigue, unspecified type TRIPP (dyspnea on exertion) Chest tightness HTN, goal below 140/90 Hyperlipemia, mixed 11/01/2022 12:40 PM EDT Scheduled Orders Name Type Priority Associated Diagnoses Orde r Schedule COMPREHENSIVE METABOLIC PANEL Lab Routine Heart palpitations Fatigue, unspecified type TRIPP (dyspnea on exertion) Chest tightness HTN, goal below 140/90 Hyperlipemia, mixed Expected: 11/01/2022, Expires: 11/02/2023 TSH WITH FREE T4 IF INDICATED Lab Routine Heart palpitations Fatigue, unspecified type TRIPP (dyspnea on exertion) Chest tightness HTN, goal below 140/90 Hyperlipemia, mixed Expected: 11/01/2022, Expires: 11/02/2023 LYME DISEASE ANTIBODY SCREEN WITH REFLEX TO CONFIRMATION Lab Routine Heart palpitations Fatigue, unspecified type TRIPP (dyspnea on exertion) Chest tightness HTN, goal below 140/90 Hyperlipemia, mixed Expected: 11/01/2022, Expires: 11/02/2023 ANAPLASMA PHAGOCYTOPHILUM DNA, QL REAL-TIME PCR Lab Routine Heart palpitations Fatigue, unspecified type TRIPP (dyspnea on exertion) Chest tightness HTN, goal below 140/90 Hyperlipemia, mixed Expected: 11/01/2022, Expires: 11/02/2023 EKG COMPLETE (TRACING AND INTERP) EKG Routine Heart palpitations Fatigue, unspecified type TRIPP (dyspnea on exertion) Chest tightness HTN, goal below 140/90 Hyperlipemia, mixed Ordered: 11/01/2022 BNP, NT-PRO Lab Routine Heart palpitations Fatigue, unspecified type TRIPP (dyspnea on exertion) Chest tightness HTN, goal below 140/90 Hyperlipemia, mixed Expected: 11/01/2022, Expires: 11/02/2023 ECHO, COMPLETE (2D), TRANS-THORACIC Echocardiology Routine Heart palpitations Fatigue, unspecified type TRIPP (dyspnea on exertion) Chest tightness HTN, goal below 140/90 Hyperlipemia, mixed Expected: 11/01/2022, Expires: 11/02/2023 NM MYOCARD PERF IMG SPECT MULT STUDIES WITH PHARM INTERV Cardiology Routine Heart palpitations Fatigue, unspecified type TRIPP (dyspnea on exertion) Chest tightness HTN, goal below 140/90 Hyperlipemia, mixed Expected: 11/01/2022, Expires: 12/03/2023 HEMOGLOBIN A1C Lab Routine Heart palpitations Fatigue, unspecified type TRIPP (dyspnea on exertion) Chest tightness HTN, goal below 140/90 Hyperlipemia, mixed Expected: 11/01/2022, Expires: 11/02/2023 LITHIUM LEVEL Lab Routine Heart palpitations Fatigue, unspecified type TRIPP (dyspnea on exertion) Chest tightness HTN, goal below 140/90 Hyperlipemia, mixed Expected: 11/01/2022, Expires: 11/02/2023 LIPID PANEL WITH DIRECT LDL IF TG IS HIGH Lab Routine Heart palpitations Fatigue, unspecified type TRIPP (dyspnea on exertion) Chest tightness HTN, goal below 140/90 Hyperlipemia, mixed Bradycardia Bilateral leg edema Diastolic murmur Expected: 11/01/2022, Expires: 11/02/2023 IRON SCREEN, INCLUDING TIBC Lab Routine Heart palpitations Fatigue, unspecified type TRIPP (dyspnea on exertion) Chest tightness HTN, goal below 140/90 Hyperlipemia, mixed Bradycardia Bilateral leg edema Diastolic murmur Expected: 11/01/2022, Expires: 11/02/2023 FERRITIN Lab Routine Heart palpitations Fatigue, unspecified type TRIPP (dyspnea on exertion) Chest tightness HTN, goal below 140/90 Hyperlipemia, mixed Bradycardia Bilateral leg edema Diastolic murmur Expected: 11/01/2022, Expires: 11/02/2023 Scheduled Procedures Name Priority Associated Diagnoses Date/Ti [...] 06/28/2023 06/27/2022, 1205/2020, 12/25/2019, Additional history exists GFR 09/01/2023 08/31/2022, 10/11, 09/29/2021, Additional history exists TSH 09/01/2023 08/31/2022, [...] filedocumented as of this encounter Results * (ABNORMAL) CBC (11/01/2022 12:40 PM EDT) Pathologist [facility] WBC 6.69 4.00 - 10.80 K/uL 11/01/2022 1:47 PM EDT [facility] [place] [facility] RBC 3.48 3.85 - 5.15 M/uL 11/01/2022 1:47 PM EDT [facility] [place] [facility] HGB 10.7(L) 12.0 - 15.3 g/dL 11/01/2022 1:47 PM EDT [facility] [place] [facility] HCT 33.0(L) 36.0 - 45.2 % 11/01/2022 1:47 PM EDT [facility] [place] [facility] MCV 94.8 81.5 - 97.5 fL 11/01/2022 1:47 PM EDT [facility] [place] [facility] MCH 30.7 27.0 - 34.0 pg 11/01/2022 1:47 PM EDT [facility] [place] [facility] MCHC 32.4 32.0 - 36.0 g/dL 11/01/2022 1:47 PM EDT [facility] [place] [facility] RDW 13.8 11.5 - 15.5 % 11/01/2022 1:47 PM EDT [facility] [place] [facility] PLT 344 140 - 400 K/uL 11/01/2022 1:47 PM EDT [facility] [place] [facility] MPV 10.0 6.6 - 11.1 fL 11/01/2022 1:47 PM EDT [facility] [place] [facility] Blood Venous blood specimen / Unknown Venipuncture / Unknown 11/01/2022 12:40 PM EDT 11/01/2022 12:40 PM EDT Carisa TRUONGNP LAB BLOOD ORDER [facility] [place] [address] [place] [address] documented in this encounter Visit Diagnoses Diagnosis Chest tightness- Primary Other chest pain Bradycardia Other specified cardiac dysrhythmias TRIPP (dyspnea on exertion) Other dyspnea and respiratory abnormality Heart palpitations Palpitations Fatigue, unspecified type Bilateral leg edema Edema Diastolic murmur Undiagnosed cardiac murmurs HTN, goal below 140/90 Unspecified essential hypertension Hyperlipemia, mixed Mixed hyperlipidemia documented in this [...] and were consensually agreed upon. Care Teams Hardware Design Engineer Relationship Specialty Start Date End Date Nam Squires DO [address] [place] [address] PCP - General Family Medicine 12/02/19 documented as of this encounter
--- OUTSIDE RECORDS SUMMARY | 2023-04-01 23:37 | External Medical Summary | Summary of Care ---
Author Name Unknown Organization [facility] Address [address] [facility] [place] [address] Phone [phone] Care Team Providers Care Restaurant Crew Member Name Role Phone Nam Squires DO Primary Care Provider Reason for Visit * Reason Onset Date Comments Test Results 11/02/2022 Encounter Details Date Type Department Care Team Description 11/02/2022 Telephone Cardiology, [facility] [address] [place] [address] Dianna Alcala CRNP [address] [facility] [place] [address] Test Results Allergies Active Allergy Reactions Severity [...] as of this encounter (statuses as of 11/02/2022) Medications Medication Sig Dispensed Refills Start Date [...] 2 Tablets before bedtime. 0 03/28/2022 Active [place] Carbonate ER 450 MG Oral Tablet Extended [...] prednisone 3 mL 0 10/15/2022 Active Pen [place] 32G X 5 MMIndications:Hyperg lycemia Use as directed. Use with insulin pen 50 Each 0 10/15/2022 Active Nystatin 068580 UNIT/GM External Powder (Nystop)Indications: Tinea cruris Apply [...] as of this encounter (statuses as of 11/02/2022) Active Problems Problem Noted Date Type 2 [...] . Secondary hyperparathyroidism, non-renal 04/01/2019 [facility]EARCH OTHER*[id number] 9 Mild persistent asthma without complicat ion [...] 432 06/2008 PSG -- CPAP 10 cwp [facility] documented as of this encounter (statuses as of 11/02/2022) Resolved Problems Problem Noted Date Resolved Date [...] as of this encounter (statuses as of 11/02/2022) Immunizations Name Administration Dates Next Due Influenza, [...] Farr CMA - 11/02/2022 12:30 PM EDT Jereharleslie sent. * Telephone Encounter - BETTY Brice - 11/02/2022 10:24 AM EDT Please let the patient know that I reviewed her blood work. Her renal function is stable. 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 Her BNP was also normal which further suggests against the diagnosis of heart failure. We did start her on Lasix 20 mg daily to aid in peripheral edema and abdominal bloating however I am concerned that her [place] is part of the problem. [place] is known to have risks associated with [...] Time Radiology [address] [place] [address] 11/17/2022 Cardiac Studies Cardiac Studies 12/05/2022 Office Visit Cardiology Mone Mcgovern CRNP [address] [place] [address] 12/07/2022 Office Visit Gastroenterology Bindu Beltran CRNP [address] [place] [address] 12/15/2022 Office Visit Sleep Disorders Shaniqua Spann DO [address] [place] [address] 01/20/2023 Office Visit Pharmacy [place], [facility] [address] [place], [place] [address] [address] 07/03/2023 Imaging Radiology Scheduled Orders Name Type Priority Associated Diagnoses Orde r Schedule BASIC METABOLIC PANEL Lab Routine Bilateral leg edema Expected: 11/09/2022, Expires: 11/03/2023 Scheduled Procedures Name Priority Associated [...] Diagnoses Diagnosis Bilateral leg edema- Primary Edema documented in this encounter Advance Directives Latest [...] and were consensually agreed upon. Care Teams Restaurant Crew Member Relationship Specialty Start Date End Date Nam Squires DO [address] [place] [address] PCP - General Family Medicine 12/02/19 documented as of this encounter
--- OUTSIDE RECORDS SUMMARY | 2023-04-01 23:37 | External Medical Summary | Summary of Care ---
Author Name Unknown Organization [facility] Address [address] [facility] [place] [address] Phone [phone] Care Team Providers Care Inspector Plating Name Role Phone Nam Squires DO Primary Care Provider Encounter Details Date Type Department Care Team Description 11/01/2022 Telephone Cardiology, [facility] [address] [place] [address] Dianna Alcala CRNP [address] [place] [address] Allergies Active Allergy Reactions Severity Noted Date [...] As directed 0 12/15/2014 Active Glucose Blood ([employer] CONTOUR NEXT TEST) STRPIndications:DM type 2, not [...] 2 Tablets before bedtime. 0 03/28/2022 Active [place] Carbonate ER 450 MG Oral Tablet Extended [...] prednisone 3 mL 0 10/15/2022 Active Pen [place] 32G X 5 MMIndications:Hyperg lycemia Use as directed. Use with insulin pen 50 Each 0 10/15/2022 Active Nystatin 076165 UNIT/GM External Powder (Nystop)Indications: Tinea cruris Apply [...] . Secondary hyperparathyroidism, non-renal 04/01/2019 [facility] RESEARCH OTHER*[id number] 9 Mild persistent asthma without complicat ion [...] today to her provider at [facility] BETTY Calixto * Telephone Encounter - BETTY Brice - 11/01/2022 12:52 PM EDT MyG sent regarding lithium use. BETTY Calixto documented in this encounter Plan of Treatment Upcoming Encounters Date Type Specialty Care Team Description 11/11/2022 Imaging Radiology Gw, Excess Time Radiology [address] [place] [address] 11/17/2022 Cardiac Studies Cardiac Studies 12/05/2022 Office Visit Cardiology Mone Mcgovern CRNP [address] [place] [address] 12/07/2022 Office Visit Gastroenterology Bindu Beltran CRNP [address] [place] [address] 12/15/2022 Office Visit Sleep Disorders Shaniqua Spann DO [address] [place] [address] 01/20/2023 Office Visit Pharmacy [address] [address] 07/03/2023 Imaging Radiology Scheduled Procedures Name Priority [...] and were consensually agreed upon. Care Teams Inspector Plating Relationship Specialty Start Date End Date Nam Squires DO [address] [place] [address] PCP - General Family Medicine 12/02/19 documented as of this encounter
--- OUTSIDE RECORDS SUMMARY | 2023-04-01 23:37 | External Medical Summary | Summary of Care ---
Author Name Unknown Organization [facility] Address [address] [facility] [place] [address] Phone [phone] Care Team Providers Care Manager Hi Name Role Phone Nam Squires DO Primary Care Provider Encounter Details Date Type Department Care Team Description 11/01/2022 Telephone Cardiology, [facility] [address] [place] [address] Dianna Alcala CRNP [address] [place] [address] Allergies Active Allergy Reactions Severity Noted Date [...] As directed 0 12/15/2014 Active Glucose Blood (i[employer] CONTOUR NEXT TEST) STRPIndications:DM type 2, not [...] 2 Tablets before bedtime. 0 03/28/2022 Active [place] Carbonate ER 450 MG Oral Tablet Extended [...] prednisone 3 mL 0 10/15/2022 Active Pen [place] 32G X 5 MMIndications:Hyperg lycemia Use as directed. Use with insulin pen 50 Each 0 10/15/2022 Active Nystatin 861469 UNIT/GM External Powder (Nystop)Indications: Tinea cruris Apply [...] . Secondary hyperparathyroidism, non-renal 04/01/2019 [facility] RESEARCH OTHER*[id number] 9 Mild persistent asthma without complicat ion [...] 432 06/2008 PSG -- CPAP 10 cwp [facility] documented as of this encounter (statuses [...] today to her provider at [facility] BETTY Calixto * Telephone Encounter - BETTY Brice - 11/01/2022 12:52 PM EDT MyG sent regarding lithium use. BETTY Calixto documented in this encounter Plan of Treatment Upcoming Encounters Date Type Specialty Care Team Description 11/11/2022 Imaging Radiology Gw, Excess Time Radiology [address] [place] [address] 11/17/2022 Cardiac Studies Cardiac Studies 12/05/2022 Office Visit Cardiology Mone Mcgovern CRNP [address] [place] [address] 12/07/2022 Office Visit Gastroenterology Bindu Beltran CRNP [address] [place] [address] 12/15/2022 Office Visit Sleep Disorders Shaniqua Spann DO [address] [place] [address] 01/20/2023 Office Visit Pharmacy [address] [address] 07/03/2023 Imaging Radiology Scheduled Procedures Name Priority [...] and were consensually agreed upon. Care Teams Manager Hi Relationship Specialty Start Date End Date Nam Squires DO [address] [place] [address] PCP - General Family Medicine 12/02/19 documented as of this encounter
--- OUTSIDE RECORDS SUMMARY | 2023-04-01 23:37 | External Medical Summary | Summary of Care ---
Author Name Unknown Organization [facility] Address [address] [facility] [place] [address] Phone [phone] Care Team Providers Care Chain Hooker Name Role Phone ShawNam Primary Care Provider Reason for Referral * Precert (Within 10 days (routine)) - Pending Review Specialty Diagnoses / Procedures Referred By Contac t Referred To Contact Radiology Diagnoses Heart palpitations Premature atrial contraction Fatigue, unspecified type TRIPP (dyspnea on exertion) Chest tightness HTN, goal below 140/90 Hyperlipemia, mixed Procedures NM MYOCARD PERF IMG SPECT MULT STUDIES WITH PHARM INTERV Dianna Alcala CRNP [address] [place] [address] Referral ID Status Reason Start Date Expiration Date Visits Requested Visits Authorized [id number] Pending Review Precert 11/01/2022 999 999 * Precert (Within 10 days (routine)) - Authorized Specialty Diagnoses / Procedures Referred By Contac t Referred To Contact Cardiac Studies Diagnoses Heart palpitations Premature atrial contraction Fatigue, unspecified type TRIPP (dyspnea on exertion) Chest tightness HTN, goal below 140/90 Hyperlipemia, mixed Procedures ECHO, COMPLETE (2D), TRANS-THORACIC Dianna Alcala CRNP [address] [place] [address] Referral ID Status Reason Start Date Expiration Date V isits Requested Visits Authorized [id number] Authorized Precert 11/01/2022 999 999 Reason for [...] exertion) Nam Squires DO [address] [facility] [place] [address] Referral ID Status Reason Start Date Expiration Date Visits Requested Visits Authorized [id number] Authorized Specialty Services Required 10/26/2022 999 999 Encounter Details Date Type Department Care Team Description 11/01/2022 Office Visit Cardiology, [facility] [address] [facility] [place] [address] Dianna Alcala CRNP [address] [facility] [place] [address] Chest tightness*; Bradycardia; TRIPP (dyspnea on exertion); [...] 2 Tablets before bedtime. 0 03/28/2022 Active [place] Carbonate ER 450 MG Oral Tablet Extended [...] prednisone 3 mL 0 10/15/2022 Active Pen [place] 32G X 5 MMIndications:Hyper glycemia Use as directed. Use with insulin pen 50 Each 0 10/15/2022 Active Nystatin 803372 UNIT/GM External Powder (Nystop)Indications :Tinea cruris Apply [...] . Secondary hyperparathyroidism, non-renal 04/01/2019 [facility] RESEARCH OTHER*[id number] 9 Mild persistent asthma without complicat ion [...] 432 06/2008 PSG -- CPAP 10 cwp [facility] documented as of this encounter (statuses [...] AM EDT Cardiology Outpatient Visit 11/01/2022 Primary Oncology Consultant: NEW PATIENT Past medical history: Palpitations PACs [...] the morning and 2 Tablets before bedtime. [place] Carbonate ER 450 MG Oral Tablet Extended [...] while on prednisone 3 mL 0 Nystatin 051882 UNIT/GM External Powder (Nystop) Apply topically to [...] injection once monthly 50 Each 0 Pen [place] 32G X 5 MM Use as directed. Use with insulin pen 50 Each 0 No current facility-administered medications for this visit. 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 Dyer Bipolar I disorder, most recent episode depressed, mild ([facility]) 01/28/[address] Dyer BMI 40.0-44.9, adult ([facility]) 06/07/2020 Bunion of great toe of left [...] DM type 2, not at goal ([facility]) 01/29/2014 = 8.6 Dyslipidemia 02/26/2009 Per Lipid [...] performed by Chun Bravo MD at ENDOSCOPY [facility] COLONOSCOPY, DIAGNOSTIC (RECTUM) 10/06/2022 COLONOSCOPY FLEXIBLE PROXIMAL DIAGNOSTIC performed by Chun Bravo MD at ENDOSCOPY [facility] DILATION AND CURETTAGE (D&C) N/A 09/16/2016 DILATION AND CURETTAGE performed by Moses Taylor DO at OR [facility] EGD, FLEXIBLE, DIAGNOSTIC 2009 EGD, FLEXIBLE, DIAGNOSTIC 10/25/2017 benign fundic gland polyp, acid reflux/[facility] EGD, FLEXIBLE, DIAGNOSTIC N/A 04/11/2019 ESOPHAGOGASTRODUODENOSCOPY (EGD), FLEXIBLE, TRANSORAL, DIAGNOSTIC performed by Escobar Leon, [facility] OR [facility] EGD, FLEXIBLE, DIAGNOSTIC N/A 07/20/2020 ESOPHAGOGASTRODUODENOSCOPY (EGD), FLEXIBLE, TRANSORAL, DIAGNOSTIC performed by Brendon Berg DO at ENDOSCOPY [facility] EGD, FLEXIBLE, DIAGNOSTIC N/A 02/03/2021 ESOPHAGOGASTRODUODENOSCOPY (EGD), FLEXIBLE, TRANSORAL, DIAGNOSTIC performed by Escobar Leon [facility] OR [facility] EGD, FLEXIBLE, DIAGNOSTIC N/A 03/26/2021 ESOPHAGOGASTRODUODENOSCOPY (EGD), FLEXIBLE, TRANSORAL, DIAGNOSTIC performed by Escobar Leon [facility] OR [facility] EGD, FLEXIBLE, DIAGNOSTIC 06/09/2021 normal bx / ESOPHAGOGASTRODUODENOSCOPY (EGD), FLEXIBLE, TRANSORAL, DIAGNOSTIC performed by Carlotta Duke MD at ENDOSCOPY [facility] EGD, FLEXIBLE, DIAGNOSTIC 11/06/2021 Gastroparesis / INPT [facility] EGD, FLEXIBLE, DIAGNOSTIC 10/06/2022 ESOPHAGOGASTRODUODENOSCOPY (EGD), FLEXIBLE, TRANSORAL, DIAGNOSTIC performed by Chun Bravo MD at ENDOSCOPY [facility] EGD, W/ENDOSCOPIC US N/A 06/12/2018 ESOPHAGOGASTRODUODENOSCOPY (EGD), FLEXIBLE, TRANSORAL, ENDOSCOPIC ULTRASOUND performed by Hema Pino DO at ENDOSCOPY [facility] ESOPH FUNCT/REFLUX TEST,MUCOSAL PH 07/20/2020 GASTRO REFLUX TEST WITH MUCOSAL TELEMETRY PH ELECTRODE performed by Brendon Berg DO at [facility] INSERT INTRAUTERINE DEVICE (IUD) N/A 09/16/2016 INSERTION OF INTRAUTERINE DEVICE performed by Moses Taylor DO at OR [facility] KNEE ARTHROSCOPY/SURGERY meniscus tear LAPAROSCOPE PROCEDURE, LIVER N/A 04/11/2019 UNLISTED LAPAROSCOPIC PROCEDURE LIVER performed by Escobar Leon MD at [facility] LAPAROSCOPIC GASTRIC BYPASS/GUCCI-EN-Y N/A 04/11/2019 LAPAROSCOPIC GASTRIC RESTRICTIVE BYPASS GUCCI EN Y performed by Escobar Leon MD at [facility] LAPAROSCOPY; CHOLECYSTECTOMY N/A 04/11/2019 LAPAROSCOPIC CHOLECYSTECTOMY performed by Escobar Leon MD at [facility] LAPAROSCOPY; CHOLECYSTECTOMY N/A 03/26/2021 LAPAROSCOPIC CHOLECYSTECTOMY performed by Escobar Leon MD at [facility] PARAESOPHAGEAL HERNIA REPAIR, LAP W/ MESH N/A 03/26/2021 LAPAROSCOPIC PARAESOPHAGEAL HERNIA REPAIR W/MESH performed by Escobar Leon MD at [facility] PARAESOPHAGEAL HERNIA REPAIR, LAP W/O MESH N/A 03/26/2021 LAPAROSCOPIC PARAESOPHAGEAL HERNIA REPAIR WO/ MESH performed by Escobar Leon MD at [facility] TRANSECTION VAGUS NRV,TRUNCAL Bilateral 03/26/2021 LAPAROSCOPIC TRANSECTION VAGUS NERVES TRUNCAL performed by Escobar Leon MD at OR [facility] Social History Tobacco Use Smoking status: Never [...] repeating a BMP in 1 week. ? [place] use contributing to hypervolemia Echo obtained to [...] performance of separately billed services. BETTY Gomez [facility], Department of Cardiology This chart was completed in part utilizing [employer] Speech Voice Recognition Software. Grammatical errors, random [...] comprehension of instructions. documented in this encounter Plan of Treatment Upcoming Encounters Date Type Specialty Care Team Description 12/05/2022 Office Visit Cardiology Mone Mcgovern CRNP [address] [place] [address] 12/07/2022 Office Visit Gastroenterology Bindu Beltran CRNP [address] [place] [address] 12/15/2022 Office Visit Sleep Disorders Shaniqua Spann DO [address] [place] [address] 01/20/2023 Office Visit Pharmacy [place], [facility] [address] [place], [place] [address] [address] 07/03/2023 Imaging Radiology Pending Results Name Type Priority Associated Diagnoses Date /Time CBC Lab Routine Heart palpitations Premature atrial contraction Fatigue, unspecified type TRIPP (dyspnea on exertion) Chest tightness HTN, goal below 140/90 Hyperlipemia, mixed 11/01/2022 12:40 PM EDT COMPREHENSIVE METABOLIC PANEL Lab Routine Heart palpitations [...] Priority Associated Diagnoses Orde r Schedule CBC Lab Routine Heart palpitations Fatigue, unspecified type TRIPP (dyspnea on exertion) Chest tightness HTN, goal below 140/90 Hyperlipemia, mixed Expected: 11/01/2022, Expires: 11/02/2023 COMPREHENSIVE METABOLIC PANEL Lab Routine Heart palpitations [...] and were consensually agreed upon. Care Teams Chain Hooker Relationship Specialty Start Date End Date Nam Squires DO [address] [place] [address] PCP - General Family Medicine 12/02/19 documented as of this encounter
--- OUTSIDE RECORDS SUMMARY | 2023-04-01 23:37 | External Medical Summary | Summary of Care ---
Author Name Unknown Organization [facility] Address [address] [facility] [place] [address] Phone [phone] Care Team Providers Care Cow Rider Name Role Phone ShawNam Primary Care Provider [...] INTERV Carisa Simmons CRNP [address] [place] [address] Referral ID Status Reason Start Date Expiration Date Visits Requested Visits Authorized [id number] Pending Review Precert 11/01/2022 999 999 * Precert (Within 10 days (routine)) - Authorized Specialty Diagnoses / Procedures Referred By Contac t Referred To Contact Cardiac Studies Diagnoses Heart palpitations Premature atrial contraction Fatigue, unspecified type TRIPP (dyspnea on exertion) Chest tightness HTN, goal below 140/90 Hyperlipemia, mixed Procedures ECHO, COMPLETE (2D), TRANS-THORACIC Carisa Simmons CRNP [address] [place] [address] Referral ID Status Reason Start Date Expiration Date V isits Requested Visits Authorized [id number] Authorized Precert 11/01/2022 999 999 Reason for [...] exertion) Nam Squires DO [address] [facility] [place] [address] Referral ID Status Reason Start Date Expiration Date Visits Requested Visits Authorized [id number] Authorized Specialty Services Required 10/26/2022 999 999 Encounter Details Date Type Department Care Team Description 11/01/2022 Office Visit Cardiology, [facility] [address] [facility] [place] [address] Carisa Simmons CRNP [address] [place] [address] Chest tightness*; Bradycardia; TRIPP (dyspnea on exertion); [...] 2 Tablets before bedtime. 0 03/28/2022 Active [place] Carbonate ER 450 MG Oral Tablet Extended [...] prednisone 3 mL 0 10/15/2022 Active [place] 32G X 5 MMIndications:Hyper glycemia Use as directed. Use with insulin pen 50 Each 0 10/15/2022 Active Nystatin 900258 UNIT/GM External Powder (Nystop)Indications :Tinea cruris Apply [...] . Secondary hyperparathyroidism, non-renal 04/01/2019 [facility] OTHER*[id number] 9 Mild persistent asthma without complicat ion [...] 432 06/2008 PSG -- CPAP 10 cwp [facility] documented as of this encounter (statuses as [...] AM EDT Cardiology Outpatient Visit 11/01/2022 Primary Serologist: NEW PATIENT Past medical history: Palpitations PACs [...] the morning and 2 Tablets before bedtime. [place] Carbonate ER 450 MG Oral Tablet Extended [...] while on prednisone 3 mL 0 Nystatin 681845 UNIT/GM External Powder (Nystop) Apply topically to [...] injection once monthly 50 Each 0 [place] 32G X 5 MM Use as directed. [...] performed by Chun Bravo MD at ENDOSCOPY [facility] COLONOSCOPY, DIAGNOSTIC (RECTUM) 10/06/2022 COLONOSCOPY FLEXIBLE PROXIMAL DIAGNOSTIC performed by Chun Bravo MD at ENDOSCOPY [facility] DILATION AND CURETTAGE (D&C) N/A 09/16/2016 DILATION AND CURETTAGE performed by Moses Taylor DO at OR [facility] EGD, FLEXIBLE, DIAGNOSTIC 2009 EGD, FLEXIBLE, DIAGNOSTIC 10/25/2017 benign fundic gland polyp, acid reflux/[facility] EGD, FLEXIBLE, DIAGNOSTIC N/A 04/11/2019 ESOPHAGOGASTRODUODENOSCOPY (EGD), FLEXIBLE, TRANSORAL, DIAGNOSTIC performed by Escobar Leon, [facility] OR [facility] EGD, FLEXIBLE, DIAGNOSTIC N/A 07/20/2020 ESOPHAGOGASTRODUODENOSCOPY (EGD), FLEXIBLE, TRANSORAL, DIAGNOSTIC performed by Brendon Berg DO at ENDOSCOPY [facility] EGD, FLEXIBLE, DIAGNOSTIC N/A 02/03/2021 ESOPHAGOGASTRODUODENOSCOPY (EGD), FLEXIBLE, TRANSORAL, DIAGNOSTIC performed by Escobar Leon [facility] OR [facility] EGD, FLEXIBLE, DIAGNOSTIC N/A 03/26/2021 ESOPHAGOGASTRODUODENOSCOPY (EGD), FLEXIBLE, TRANSORAL, DIAGNOSTIC performed by Escobar Leon [facility] OR [facility] EGD, FLEXIBLE, DIAGNOSTIC 06/09/2021 normal bx / ESOPHAGOGASTRODUODENOSCOPY (EGD), FLEXIBLE, TRANSORAL, DIAGNOSTIC performed by Carlotta Duke MD at ENDOSCOPY [facility] EGD, FLEXIBLE, DIAGNOSTIC 11/06/2021 Gastroparesis / INPT [facility] EGD, FLEXIBLE, DIAGNOSTIC 10/06/2022 ESOPHAGOGASTRODUODENOSCOPY (EGD), FLEXIBLE, TRANSORAL, DIAGNOSTIC performed by Chun Bravo MD at ENDOSCOPY [facility] EGD, W/ENDOSCOPIC US N/A 06/12/2018 ESOPHAGOGASTRODUODENOSCOPY (EGD), FLEXIBLE, TRANSORAL, ENDOSCOPIC ULTRASOUND performed by Hema Pino DO at ENDOSCOPY [facility] ESOPH FUNCT/REFLUX TEST,MUCOSAL PH 07/20/2020 GASTRO REFLUX TEST WITH MUCOSAL TELEMETRY PH ELECTRODE performed by Brendon Berg DO at [facility] INSERT INTRAUTERINE DEVICE (IUD) N/A 09/16/2016 INSERTION OF INTRAUTERINE DEVICE performed by Moses Taylor DO at OR [facility] KNEE ARTHROSCOPY/SURGERY meniscus tear LAPAROSCOPE PROCEDURE, LIVER N/A 04/11/2019 UNLISTED LAPAROSCOPIC PROCEDURE LIVER performed by Escobar Leon MD at [facility] LAPAROSCOPIC GASTRIC BYPASS/GUCCI-EN-Y N/A 04/11/2019 LAPAROSCOPIC GASTRIC RESTRICTIVE BYPASS GUCCI EN Y performed by Escobar Leon MD at [facility] LAPAROSCOPY; CHOLECYSTECTOMY N/A 04/11/2019 LAPAROSCOPIC CHOLECYSTECTOMY performed by Escobar Leon MD at [facility] LAPAROSCOPY; CHOLECYSTECTOMY N/A 03/26/2021 LAPAROSCOPIC CHOLECYSTECTOMY performed by Escobar Leon MD at [facility] PARAESOPHAGEAL HERNIA REPAIR, LAP W/ MESH N/A 03/26/2021 LAPAROSCOPIC PARAESOPHAGEAL HERNIA REPAIR W/MESH performed by Escobar Leon MD at [facility] PARAESOPHAGEAL HERNIA REPAIR, LAP W/O MESH N/A 03/26/2021 LAPAROSCOPIC PARAESOPHAGEAL HERNIA REPAIR WO/ MESH performed by Escobar Leon MD at [facility] TRANSECTION VAGUS NRV,TRUNCAL Bilateral 03/26/2021 LAPAROSCOPIC [...] repeating a BMP in 1 week. ? [place] use contributing to hypervolemia Echo obtained to [...] performance of separately billed services. BETTY Gomez [facility], Department of Cardiology This chart was completed in part utilizing [email or web address] Speech Voice Recognition Software. Grammatical errors, random [...] Gw, Excess Time Radiology [address] [place] [address] 11/17/2022 Cardiac Studies Cardiac Studies 12/05/2022 Office Visit Cardiology Mone Mcgovenr CRNP [address] [place] [address] 12/07/2022 Office Visit Gastroenterology Bindu Beltran CRNP [address] [place] [address] 12/15/2022 Office Visit Sleep Disorders Shaniqua Spann DO [address] [place] [address] 01/20/2023 Office Visit Pharmacy [place] [address] [place] [address] 07/03/2023 Imaging Radiology Pending Results Name Type Priority Associated Diagnoses Date /Time LYME DISEASE ANTIBODY SCREEN WITH REFLEX TO [...] Type Priority Associated Diagnoses Orde r Schedule LYME DISEASE ANTIBODY SCREEN WITH REFLEX TO [...] goal below 140/90 Hyperlipemia, mixed Ordered: 11/01/2022 ECHO, COMPLETE (2D), TRANS-THORACIC Echocardiology Routine Heart palpitations Fatigue, unspecified type TRIPP (dyspnea on exertion) Chest tightness HTN, goal below 140/90 Hyperlipemia, mixed Expected: 11/01/2022, Expires: 11/02/2023 NM MYOCARD PERF IMG SPECT MULT STUDIES WITH PHARM INTERV Cardiology Routine Heart palpitations Fatigue, unspecified type TRIPP (dyspnea on exertion) Chest tightness HTN, goal below 140/90 Hyperlipemia, mixed Expected: 11/01/2022, Expires: 12/03/2023 LITHIUM LEVEL Lab Routine Heart palpitations Fatigue, [...] as of this encounter Results * (ABNORMAL) FERRITIN (11/01/2022 12:40 PM EDT) Ferritin 202(H) 13 - 150 ng/mL 11/01/2022 9:35 PM EDT LABORATORY [facility] Comment:Postmenopausal women have higher ferritin levels than pre-menopausal women. The above reference interval is based on pre-menopausal women. Blood Venous blood specimen / Unknown Venipuncture / Unknown 11/01/2022 12:40 PM EDT 11/01/2022 12:40 PM EDT Carisa HERNÁNDEZ LAB BLOOD ORDER SHARITA LABORATORY [facility] [address] [place] [address] * IRON SCREEN, INCLUDING TIBC (11/01/2022 12:40 PM EDT) Iron 86 33 - 151 ug/dL 11/01/2022 8:37 PM EDT LABORATORY [facility] Iron Binding Capacity 347 250 - 425 ug/dL 11/01/2022 8:37 PM EDT LABORATORY [facility] Transferrin Saturation Percent 25 15 - 55 % 11/01/2022 8:37 PM EDT LABORATORY [facility] Blood Venous blood specimen / Unknown Venipuncture / Unknown 11/01/2022 12:40 PM EDT 11/01/2022 12:40 PM EDT Carisa Stackiso VIDEO CONTROL OPERATOR LAB BLOOD ORDER SHARITA Performing Organization Address [facility] Co de Phone Number LABORATORY [facility] [address] [place] [address] * (ABNORMAL) HEMOGLOBIN A1C (11/01/2022 12:40 PM EDT) Pathologist [facility] Hemoglobin A1C 7.2(H) 4.0 - 5.6 % 11/01/2022 8:38 PM EDT LABORATORY [facility] Comment:The use of HbA1c to monitor glycemic status is based on normal hemoglobin and HbA composition. This test should not be used in patients with abnormal hemoglobin that affects the half life of the red blood cell or the in vivo glycation rates. Estimated Average Glucose 160(H) <126 mg/dL 11/01/2022 8:38 PM EDT LABORATORY [facility] Blood Venous blood specimen / Unknown Venipuncture / Unknown 11/01/2022 12:40 PM EDT 11/01/2022 12:40 PM EDT Carisa Mujica Cari VIDEO CONTROL OPERATOR LAB BLOOD ORDER SHARITA Performing Organization Address [facility]/ZIP Co de Phone Number LABORATORY [facility] [address] [place] [address] * BNP, NT-PRO (11/01/2022 12:40 PM EDT) BNP, NT-Pro 154 <300 pg/mL 11/01/2022 8:37 PM EDT LABORATORY [facility] Blood Venous blood specimen / Unknown Venipuncture / Unknown 11/01/2022 12:40 PM EDT 11/01/2022 12:40 PM EDT Narrative LABORATORY [facility] - 11/01/2022 8:37 PM EDT Exclude Heart Failure: <300 pg/mL Diagnose Heart Failure: Age <50 yr: >450 pg/mL 50-75 yr: >900 pg/mL >75 yr: >1800 pg/mL GFR is 30-59 mL/min: >1200 pg/mL or Age-adjusted values GFR <30 mL/min: do not use, not reliable Prognostic threshold: 1000 pg/mL Carisa Stackiso VIDEO CONTROL OPERATOR LAB BLOOD ORDER SHARITA Performing Organization Address City/[facility]/ZIP Co de Phone Number LABORATORY [place] [address] [place] [address] * (ABNORMAL) TSH WITH FREE T4 IF INDICATED (11/01/2022 12:40 PM EDT) TSH 5.54(H) 0.27 - 4.20 uIU/mL 11/01/2022 9:35 PM EDT LABORATORY [facility] Blood Venous blood specimen / Unknown Venipuncture / Unknown 11/01/2022 12:40 PM EDT 11/01/2022 12:40 PM EDT Carisa Mujica Cari VIDEO CONTROL OPERATOR LAB BLOOD ORDER SHARITA Performing Organization Address City/[facility]/ZIP Co de Phone Number LABORATORY [place] [address] [place] [address] * (ABNORMAL) COMPREHENSIVE METABOLIC PANEL (11/01/2022 12:40 PM EDT) BUN 21(H) 6 - 20 mg/dL 11/01/2022 3:06 PM EDT LABORATORY [place] [facility]10 Creatinine 0.8 0.5 - 1.0 mg/dL 11/01/2022 3:06 PM EDT LABORATORY [place] [facility] Estimated Glomerular Filtration Rate 80 >=60 mL/min 11/01/2022 3:06 PM EDT LABORATORY [place] [facility]10 Comment:eGFR is calculated b ased on the CKD-EPI 2020 equation Sodium 140 135 - 146 mmol/L 11/01/2022 3:06 PM EDT LABORATORY [place] [facility]10 Potassium 4.2 3.5 - 5.1 mmol/L 11/01/2022 3:06 PM EDT LABORATORY [place] [facility]10 Chloride 105 98 - 107 mmol/L 11/01/2022 3:06 PM EDT LABORATORY [place] [facility] CO2 24 22 - 32 mmol/L 11/01/2022 3:06 PM EDT LABORATORY [place] [facility] Anion Gap 11 7 - 15 mmol/L 11/01/2022 3:06 PM EDT LABORATORY [place] [facility]10 Glucose 219(H) 70 - 120 mg/dL 11/01/2022 3:06 PM EDT LABORATORY [place] [facility] Albumin 4.0 3.8 - 5.0 g/dL 11/01/2022 3:06 PM EDT LABORATORY [place] [facility]10 AST 18 10 - 35 U/L 11/01/2022 3:06 PM EDT LABORATORY [place] [facility]10 Alkaline Phosphatase 128 35 - 130 U/L 11/01/2022 3:06 PM EDT LABORATORY [place] [facility]10 Bilirubin, Total 0.4 <=1.2 mg/dL 11/01/2022 3:06 PM EDT LABORATORY [place] [facility]10 Calcium 9.3 8.4 - 10.2 mg/dL 11/01/2022 3:06 PM EDT LABORATORY [place] [facility]10 Protein 6.4 6.0 - 8.3 g/dL 11/01/2022 3:06 PM EDT LABORATORY [place] [facility]10 ALT 20 10 - 35 U/L 11/01/2022 3:06 PM EDT LABORATORY [place] [facility]10 Blood Venous blood specimen / Unknown Venipuncture / Unknown 11/01/2022 12:40 PM EDT 11/01/2022 12:40 PM EDT Carisa Mujica Cari HERNÁNDEZ LAB BLOOD ORDER SHARITA LABORATORY [place] [facility] [place] [address] * (ABNORMAL) CBC (11/01/2022 12:40 PM EDT) WBC 6.69 4.00 - 10.80 K/uL 11/01/2022 [...] PM EDT 11/01/2022 12:40 PM EDT Carisa HERNÁNDEZ LAB BLOOD ORDER SHARITA LABORATORY [facility] [place] [facility] [place] [address] documented in this encounter Visit Diagnoses Diagnosis [...] and were consensually agreed upon. Care Teams Cow Rider Relationship Specialty Start Date End Date Nam Squires DO [address] [place] [address] PCP - General Family Medicine 12/02/19 documented as of this encounter
--- OUTSIDE RECORDS SUMMARY | 2023-04-01 23:37 | External Medical Summary | Summary of Care ---
Author Name Unknown Organization [facility] Address [address] [facility] [place] [address] Phone [phone] Care Team Providers Care Ordnance Truck Installation Supervisor Name Role Phone Nam Squires DO Primary Care Provider Encounter Details Date Type Department Care Team Description 11/01/2022 Telephone Cardiology, [facility] [address] [place] [address] Dianna Alcala CRNP [address] [place] [address] Allergies Active Allergy Reactions Severity Noted Date [...] As directed 0 12/15/2014 Active Glucose Blood ([employer] CONTOUR NEXT TEST) STRPIndications:DM type 2, not [...] 2 Tablets before bedtime. 0 03/28/[address] [place] Carbonate ER 450 MG Oral Tablet Extended [...] prednisone 3 mL 0 10/15/2022 Active Pen [place] 32G X 5 MMIndications:Hyperg lycemia Use as directed. Use with insulin pen 50 Each 0 10/15/2022 Active Nystatin 713464 UNIT/GM External Powder (Nystop)Indications: Tinea cruris Apply [...] . Secondary hyperparathyroidism, non-renal 04/01/2019 [facility] OTHER*[id number] 9 Mild persistent asthma without complicat ion [...] 432 06/2008 PSG -- CPAP 10 cwp [facility] documented as of this encounter (statuses [...] of 7.0%-8.0% 01/08/2009 01/29/2014 Overview: Sees Dr. Hogn (Endocrine) ICD-10 update of inactive term HYPERTENSION [...] Mone Mcgovern CRNP [address] [place] [address] 12/07/2022 Office Visit Gastroenterology Bindu Beltran CRNP [address] [place] [address] 12/15/2022 Office Visit Sleep Disorders Shaniqua Spann, DO [address] [place] [address] 01/20/[address] [facility] [address] [facility] [place] [address] 07/03/2023 Imaging Radiology Scheduled Procedures Name Priority [...] 06/28/2023 06/27/2022, 12/05/2020, 12/25/2019, Additional history exists GFR 09/01/2023 08/31/2022, [...] and were consensually agreed upon. Care Teams Ordnance Truck Installation Supervisor Relationship Specialty Start Date End Date Shaw, Nam, DO [address] [place] [address] PCP - General Family Medicine 12/02/19 documented as of this encounter
--- OUTSIDE RECORDS SUMMARY | 2023-04-01 23:38 | External Medical Summary | Summary of Care ---
Author Name Unknown Organization [facility] Address [address] [facility] [place] [address] Phone [phone] Care Team Providers Care Client Support Administrator Name Role Phone Nam Squires DO Primary Care Provider Reason for Visit * Reason Onset Date Comments Med Request 10/15/2022 Encounter Details Date Type Department Care Team Description 10/15/2022 Telephone Family Practice [facility] [address] [place] [address] Nam Squires DO [address] [place] [address] Med Request Allergies Active Allergy Reactions Severity Noted Date [...] as of this encounter (statuses as of 10/15/2022) Medications Medication Sig Dispensed Refills Start Date [...] 2 Tablets before bedtime. 0 03/28/2022 Active [place] Carbonate ER 450 MG Oral Tablet Extended [...] Acid) Take by mouth. 0 Activ e Pantoprazole Sodium 40 MG Oral Tablet Delayed Release (Protonix)Indicatio ns:Gastroesophageal reflux disease without esophagitis Take 1 Tablet by mouth in the morning. 30 minutes before the first meal of the day. Do not crush, split or chew the tablet. 30 Tablet 5 09/23/2022 Active Triamcinolone Acetonide 0.5 % External Cream (Aristocort) Apply topically to affected area 2 times a day. To affected area. 80 g 0 10/12/2022 Active methylPREDNISolone 4 MG Oral Tablet Therapy Pack (Medrol Dosepack)Indication s:Allergic contact dermatitis due to plants, except food follow package directions 21 Tablet 0 10/13/2022 Active NovoLOG FlexPen 100 UNIT/ML Subcutaneous Solution Pen-injector (insulin aspart)Indications: Hyperglycemia Inject 3 units with meals if blood sugar greater than 200 while on prednisone 3 mL 0 10/15/2022 Active Pen [place] 32G X 5 MMIndications:Hyper glycemia Use as directed. Use with insulin pen 50 Each 0 10/15/2022 Active Pen [place] 32G X 5 MMIndications:Hyper glycemia Use as directed. 50 Each 0 10/15/2022 3 Discontinue d(Refill) documented as of this encounter (statuses as of 10/15/2022) Active Problems Problem Noted Date Type 2 [...] . Secondary hyperparathyroidism, non-renal 04/01/2019 [facility] RESE[facility] OTHER*[id number] 9 Mild persistent asthma without complicat ion [...] 432 06/2008 PSG -- CPAP 10 cwp [facility] documented as of this encounter (statuses as of 10/15/2022) Resolved Problems Problem Noted Date Resolved Date [...] mental problems 01/28/2005 07/04/2017 Overview: Sees Dr. Deyr Major depressive disorder 01/28/20052017 Overview: Sees Dr. Dyer ICD-10 update of inactive term Female genital symptoms 02/04/2002 04/01/19 15 Overview: ICD-10 update of inactive term Restless legs syndrome 0 Osteoarthritis of knee 8 Overview: sees Dr. Cintron. Needs wheelchair for long distances. 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 Please add directions to [place], used as directed is not acceptable. Did you pend patient's preferred pharmacy and medication before forwarding?yes Pharmacy: [id number] [address] [facility] Pending Prescriptions: Disp Refills Pen [place] 32G X 5 MM 50 Each0 Sig: Use as directed. Last Visit: 10/13/2022 (in office), Visit date not found (telemedicine) Next Visit: Visit date not found If no future appointments scheduled, and last appointment is greater than a year ago, please schedule patient for a follow-up appointment Last date the medication was ordered: Is this request for a controlled substance?No Urine Drug Screen:No results found. However, due to the size of the patient record, not all encounters were searched. Please check Results Review for a complete set of results. Patient Phone Numbers Labs: Lab Results Component Value Date/Time CREAT 1.0 08/31/2022 10:46 AM CREAT 1.0 03/17/2020 08:54 AM POTASSIUM 4.1 08/31/2022 10:46 AM POTASSIUM 4.3 03/17/2020 08:54 AM TSH 5.56 (H) 08/31/2022 10:46 AM TSH 0.17 (L) 03/17/2020 08:54 AM LDLCALC 145 (H) 09/03/2019 10:48 AM LDLDIRECT 71 04/03/2019 12:57 PM LDLDIRECT 92 06/17/2014 02:26 PM ALT 20 08/31/2022 10:46 AM ALT 18 03/17/2020 08:54 AM HGBA1C 6.8 (H) 08/31/2022 10:46 AM HGBA1C 7.6 (H) 03/17/2020 08:54 AM HGBA1C 6.5 (H) 01/16/1996 10:00 AM * Telephone Encounter - COLTEN Bray - 10/15/2022 3:14 PM EDT Reason for patient's call: Pt needs instructions listed for her insulin at pharmacy as they wont fill it without it today Caller was transferred to [facility] at the clinic. documented in this encounter Plan of Treatment Upcoming Encounters Date Type Specialty Care Team Description 12/07/2022 Office Visit Gastroenterology Bindu Beltran CRNP [address] [place] [address] 12/15/2022 Office Visit Sleep Disorders Shaniqua Spann DO [address] [place] [address] 01/20/[facility]23 [facility] [address] [place] [address] 07/03/2023 Imaging Radiology Scheduled Procedures Name Priority [...] 12/25/2019, Additional history exists GFR 09/01/2023 08/31/2022, 08/1 , 09/29/2021, Additional history exists TSH 09/01/2023 08/31/2022, [...] as of this encounter Visit Diagnoses Diagnosis Hyperglycemia Other abnormal glucose documented in this encounter Advance Directives Latest [...] and were consensually agreed upon. Care Teams Client Support Administrator Relationship Specialty Start Date End Date Nam Squires DO [address] [place] [address] PCP - General Family Medicine 12/02/19 documented as of this encounter
--- OUTSIDE RECORDS SUMMARY | 2023-04-01 23:38 | External Medical Summary | Summary of Care ---
Author Name Unknown Organization [facility] Address [address] [place] [address] Phone [phone] Care Team Providers Care Order Control Clerk Blood Bank Name Role Phone Nam Squires DO Primary Care Provider [phone] Reason for Visit * Reason Comments Rash Encounter Details Date Type Department Care Team Description 10/12/2022 Convenient Care Visit [facility] [address] [place] [address] Daniel Ruiz PA-C [address] [place] [address] Rash and nonspecific skin eruption* Allergies Active Allergy Reactions Severity Noted Date [...] as of this encounter (statuses as of 10/12/2022) Medications Medication Sig Dispensed Refills Start Date End Date Status BD INSULIN SYRINGE ULTRAFINE 30G X 1/2" 0.3 ML MISC As directed 0 12/15/2014 Active Glucose Blood (Sumbola CONTOUR NEXT TEST) STRPIndications:DM type 2, not at goal (HCC) Use to test blood sugar 6 times daily dx e11.9 540 Strip 3 01/29/2019 Active CPAP every night at bedtime. 0 Active Levothyroxine Sodium 112 MCG Oral Tablet (Levoxyl)Indications :Acquired hypothyroidism (Take 1 tablet by mouth daily at least 30 min prior to breakfast or other meds) 90 Tablet 3 12/09/2021 Active Vitamin B12 100 MCG Oral Tablet Take by mouth . 0 Active busPIRone HCl 10 MG Oral Tablet (Buspar) 2 Tablets in the morning and 2 Tablets before bedtime. 0 03/28/2022 Active [place] Carbonate ER 450 MG Oral Tablet [...] DAYS . 3 mL 3 07/14/2022 Active Childrens Chewable Multi Vits Oral Tablet Chewable Take 1 Tablet by mouth in the morning. 0 Active Diclofenac Sodium 1 % External Gel Apply topically to affected area. Apply to effected areas 0 Active rOPINIRole HCl 1 MG Oral Tablet (Requip) Take 2 Tablets by mouth every evening. 180 Tablet 1 08/31/2022 Active Sucralfate 1 GM Oral Tablet (Carafate) Take 1 Tablet by mouth in the morning and 1 Tablet at noon and 1 Tablet in the evening and 1 Tablet before bedtime. 40 Tablet 0 09/02/2022 Active Additional Information Patient not taking.Reported on 10/03/2022 Vitamin C Adult Gummies 125 MG Oral [...] affected area. 80 g 0 10/12/2022 Active documented as of this encounter (statuses as of 10/12/2022) Active Problems Problem Noted Date Type 2 [...] . Secondary hyperparathyroidism, non-renal 04/01/2019 [facility] OTHER*[id number] 9 Mild persistent asthma without complicat ion [...] as of this encounter (statuses as of 10/12/2022) Resolved Problems Problem Noted Date Resolved Date [...] as of this encounter (statuses as of 10/12/2022) Immunizations Name Administration Dates Next Due Influenza, [...] Sign Reading Time Taken Comments Blood Pressure - - Pulse - - Temperature 36.2 C (97.2 F) 10/12/2022 12:39 PM E DT Respiratory Rate 16 10/12/2022 12:39 PM EDT Oxygen Saturation - - Inhaled Oxygen Concentration - - Weight 85.1 kg (187 lb 9.6 oz) 10/12/2022 12:39 PM EDT Height 162.6 cm (5' 4") 10/12/2022 12:39 PM EDT Body Mass Index 32.2 10/12/2022 12:39 PM EDT documented in this encounter Functional [...] as of this encounter Progress Notes * Daniel Ruiz PA-C - 10/12/2022 2:24 PM EDT Convenient Care Basic Exam HPI: Joyce Smith is a 57 year old year old female who presents for evaluation of few day hx of rash that appears to be spreading. Started on left arm where it has spread to face, behind ear andright arm. States very itchy. Has been using steroid cream with minimal relief. Has another rash underneath her stomach she is being treated separately as a yeast type rash. No fevers. Review of Systems Skin: Positive for rash. 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 Dyer Bipolar I disorder, most recent episode depressed, mild ([facility]) 01/28/[address] Dyer BMI 40.0-44.9, adult ([facility]) 06/07/2020 Bunion of great toe of [...] Lucero DM type 2, not at goal ([facility]) 01/29/2014 = 8.6 Dyslipidemia 02/26/2009 Per [...] effect Restless legs syndrome Secondary hyperparathyroidism, non-renal ([facility]) 04/01/2019 Sleep apnea on CPAP Sleep apnea, obstructive Status post total bilateral knee replacement 07/17/2016 Type 2 diabetes mellitus with hemoglobin A1c goal of less than 7.0% ([facility]) 01/28/2005 Per Diabetes Taxonomy. ICD-10 update of inactive term Type II diabetes mellitus with neurological manifestations ([facility]) 04/19/2019 Vitamin D deficiency 11/22/2011 = 17.9 Taking 50,000 twice weekly per Kaviani. Plans to recheck June Past Surgical History: Procedure Laterality Date ARTHROPLASTY KNEE TOTAL Bilateral 11/26/2010 Dr Sarabia-right , left and right knee replacement COLONOSCOPY, DIAGNOSTIC (RECTUM) 2009 COLONOSCOPY, DIAGNOSTIC (RECTUM) 11/10/2020 diverticulosis, repeat 10 yrs / COLONOSCOPY FLEXIBLE PROXIMAL DIAGNOSTIC performed by Chun Bravo MD at ENDOSCOPY [facility] COLONOSCOPY, DIAGNOSTIC (RECTUM) 10/06/2022 COLONOSCOPY FLEXIBLE PROXIMAL DIAGNOSTIC performed by Chun Bravo MD at ENDOSCOPY [facility] DILATION AND CURETTAGE (D&C) N/A 09/16/2016 DILATION AND CURETTAGE performed by Moses Taylor DO at OR [facility] EGD, FLEXIBLE, DIAGNOSTIC 2009 EGD, FLEXIBLE, DIAGNOSTIC 10/25/2017 benign fundic gland polyp, acid reflux/[facility] EGD, FLEXIBLE, DIAGNOSTIC N/A 04/11/2019 ESOPHAGOGASTRODUODENOSCOPY (EGD), FLEXIBLE, TRANSORAL, DIAGNOSTIC performed by Escobar Leon MDa OR [facility] EGD, FLEXIBLE, DIAGNOSTIC N/A 07/20/2020 ESOPHAGOGASTRODUODENOSCOPY (EGD), FLEXIBLE, TRANSORAL, DIAGNOSTIC performed by Brendon Berg DO at [facility] EGD, FLEXIBLE, DIAGNOSTIC N/A 02/03/2021 ESOPHAGOGASTRODUODENOSCOPY (EGD), FLEXIBLE, TRANSORAL, DIAGNOSTIC performed by Escobar Leon MDa OR [facility] EGD, FLEXIBLE, DIAGNOSTIC N/A 03/26/2021 ESOPHAGOGASTRODUODENOSCOPY (EGD), FLEXIBLE, TRANSORAL, DIAGNOSTIC performed by Alexa Brooks OR [facility] EGD, FLEXIBLE, DIAGNOSTIC 06/09/2021 normal bx / ESOPHAGOGASTRODUODENOSCOPY (EGD), FLEXIBLE, TRANSORAL, DIAGNOSTIC performed by Carlotta Duke MD at ENDOSCOPY [facility] EGD, FLEXIBLE, DIAGNOSTIC 11/06/2021 Gastroparesis / INPT [facility] EGD, FLEXIBLE, DIAGNOSTIC 10/06/2022 ESOPHAGOGASTRODUODENOSCOPY (EGD), FLEXIBLE, TRANSORAL, DIAGNOSTIC performed by Chun Bravo MD at ENDOSCOPY [facility] EGD, W/ENDOSCOPIC US N/A 06/12/2018 ESOPHAGOGASTRODUODENOSCOPY (EGD), FLEXIBLE, TRANSORAL, ENDOSCOPIC ULTRASOUND performed by Hema Pino DO at ENDOSCOPY [facility] ESOPH FUNCT/REFLUX TEST,MUCOSAL PH 07/20/2020 GASTRO REFLUX TEST WITH MUCOSAL TELEMETRY PH ELECTRODE performed [facility]rendon Berg [facility] INSERT INTRAUTERINE DEVICE (IUD) N/A 09/16/2016 INSERTION [...] performed by Escobar Leon MD at OR [facility] Social History Tobacco Use Smoking status: Never Smokeless tobacco: Never Substance Use Topics Alcohol use: No Vaping/E-Cigarette Use Vaping/E-Cigarette Use Never User Passive Exposure No Counseling Given? No Vaping/E-Cigarette Substances Nicotine No Other No Flavoring No THC No Cannabidiol (CBD) No Vaping/E-Cigarette Devices Disposable No Pre-filled or Refillable Cartridge No Refillable Tank No Pre-filled Pod No Patient Active Problem List Diagnosis Code Hypothyroidism E03.9 Gastroesophageal reflux disease with esophagitis K21.00 Bipolar I disorder, most recent episode depressed, mild (HCC) F31.31 Type 2 diabetes mellitus with hemoglobin A1c goal of less than 7.0% ([facility]) E11.9 HTN, goal below 130/80 I10 Dyslipidemia E78.5 Iron deficiency anemia D50.9 Generalized osteoarthritis M15.9 COLTEN (obstructive sleep apnea) G47.33 Asthma with allergic rhinitis J45.909 Fibroid uterus D25.9 Lumbar degenerative disc disease M51.36 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 Mild persistent asthma without complication J45.30 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 H60.21 [facility] OTHER*[id number] Secondary hyperparathyroidism, non-renal ([facility]) E21.1 Hypocalciuria E83.59 History of bariatric surgery Z98.84 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 RLS (restless legs syndrome) G25.81 Peripheral neuropathy due to metabolic disorder ([facility]) E88.9, G63 Diabetic retinopathy of both eyes associated with type 2 diabetes mellitus ([facility]) E11.319 Hiatal hernia K44.9 Primary osteoarthritis of left foot M19.072 Abdominal pain, generalized R10.84 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 ([facility]) E11.42 Type 2 diabetes mellitus with diabetic peripheral angiopathy without gangrene ([facility]) E11.51 Osteoarthritis of both acromioclavicular joints M19.011, M19.012 DDD (degenerative disc disease), cervical M50.30 Thoracic degenerative disc disease M51.34 Irritable bowel syndrome with both constipation and diarrhea K58.2 History of Gucci-en-Y gastric bypass Z98.84 Review of patient's allergies indicates: Allergen Reactions [...] Current Outpatient Medications Medication Sig Dispense Refill Triamcinolone Acetonide 0.5 % External Cream (Aristocort) Apply topically to affected area 2 times a day. To affected area. 80 g 0 BD INSULIN SYRINGE ULTRAFINE 30G X 1/2" 0.3 ML MISC As directed 0 Glucose Blood (Sumbola CONTOUR NEXT TEST) STRP Use to test blood sugar 6 times daily dx e11.9 540Strip 3 CPAP every night at bedtime. Levothyroxine Sodium 112 MCG Oral Tablet (Levoxyl) (Take 1 tablet by mouth daily at least 30 min prior to breakfast or other meds) 90 Tablet 3 Vitamin B12 100 MCG Oral Tablet Take by mouth . busPIRone HCl 10 MG Oral Tablet (Buspar) 2 Tablets in the morning and 2 Tablets before bedtime. [place] Carbonate ER 450 MG Oral Tablet [...] EVERY 30 DAYS . 3 mL 3 Childrens Chewable Multi Vits Oral Tablet Chewable Take 1 Tablet by mouth in the morning. Diclofenac Sodium 1 % External Gel Apply topically to affected area. Apply to effected areas rOPINIRole HCl 1 MG Oral Tablet (Requip) Take 2 Tablets by mouth every evening. 180 Tablet 1 Sucralfate 1 GM Oral Tablet (Carafate) Take 1 Tablet by mouth in the morning and 1 Tablet at noon and 1 Tablet in the evening and 1 Tablet before bedtime. (Patient not taking: Reported on 10/03/2022) 40 Tablet 0 Vitamin C Adult Gummies 125 MG Oral Tablet Chewable (Ascorbic Acid) Take by mouth. Pantoprazole Sodium 40 MG Oral Tablet Delayed Release (Protonix) Take 1 Tablet by mouth in the morning. 30 minutes before the first meal of the day. Do not crush, split or chew the tablet. 30 Tablet 5 No current facility-administered medications for this visit. Nursing Notes and Vital Signs reviewed. Temp 36.2 C (97.2 F) (Tympanic) | Resp 16 | Ht 1.626 m (5' 4") | Wt 85.1 kg (187 lb 9.6 oz) | BMI 32.20 kg/m | BSA 1.96 m Physical Exam Constitutional: General: She is not in acute distress. Appearance: She is obese. She is not ill-appearing. Skin: Findings: Erythema and rash present. Rash is papular. Neurological: Mental Status: She is alert. ASSESSMENT: Rash and nonspecific skin eruption (Primary) Other orders - Triamcinolone Acetonide 0.5 % External Cream (Aristocort); Apply topically to affected area 2 times a day. To affected area. Plan: Patient did not want oral steroids. Will treat with a higher potency steroid cream. Patient also told to take benadryl for her symptoms. Will follow up with her PCP tomorrow. Patient goals for plan of care were discussed Follow up with PCP or seek emergency medical attention as needed if symptoms worsen, evolve, or fail to improve. Patient demonstrates understanding of the visit, course of treatment, and instructions. Medication instructions and possible side effects were reviewed with patient. All questions were answered and patient agrees to plan of care. Daniel Ruiz PA-C [facility] [address] [facility] [address] documented in this encounter Nursing Notes * Renetta Ochoa LPN - 10/12/2022 12:42 PM EDT 57 yo female presents with red itchy rash to arms/neck/under panis x1-2 days. Used triamcinolone/benadryl documented in this encounter Plan of Treatment Upcoming Encounters Date Type Specialty Care Team Description 10/13/2022 Office Visit Family Medicine Nam Squires DO [address] [place] [address] 12/07/2022 Office Visit Gastroenterology Bindu Beltran CRNP [address] [place] [address] 12/15/2022 Office Visit Sleep Disorders Shaniqua Spann DO [address] [place] [address] 01/20/2023 Office Visit Pharmacy [address] [place] [address] 07/03/2023 Imaging Radiology Scheduled Procedures Name Priority [...] as of this encounter Visit Diagnoses Diagnosis Rash and nonspecific skin eruption- Primary Rash and other nonspecific skin eruption documented in this encounter Advance Directives Latest [...] 09/16/2016 11:53 AM 09/16/2016 5:00 PM This order reflects the patients wishes and were consensually agreed upon. Full Code 09/16/2016 8:15 AM 09/16/2016 11:53 AM This o rder reflects the patients wishes and were consensually agreed upon. Care Teams Order Control Clerk Blood Bank Relationship Specialty Start Date End Date Nam Squires DO [address] [place] [address] PCP - General Family Medicine 12/02/19 documented as of this encounter
--- OUTSIDE RECORDS SUMMARY | 2023-04-01 23:38 | External Medical Summary | Summary of Care ---
Author Name Unknown Organization [facility] Address [address] [facility] [place] [address] Phone [phone] Care Team Providers Care Cook Railroad Name Role Phone ShawaNm Primary Care Provider Reason for Referral * [...] INTERV Dianna Alcala CRNP [address] [place] [address] Referral ID Status Reason Start Date Expiration Date Visits Requested Visits Authorized [id number] Pending Review Precert 11/01/2022 999 999 * Precert (Within 10 days (routine)) - Authorized Specialty Diagnoses / Procedures Referred By Contac t Referred To Contact Cardiac Studies Diagnoses Heart palpitations Premature atrial contraction Fatigue, unspecified type TRIPP (dyspnea on exertion) Chest tightness HTN, goal below 140/90 Hyperlipemia, mixed Procedures ECHO, COMPLETE (2D), TRANS-THORACIC Dianna Alcala CRNP [address] [place] [address] Referral ID Status Reason Start Date Expiration Date V isits Requested Visits Authorized [id number] Authorized Precert 11/01/2022 999 999 Reason for [...] exertion) Nam Squires DO [address] [facility] [place] [address] Referral ID Status Reason Start Date Expiration Date Visits Requested Visits Authorized [id number] Authorized Specialty Services Required 10/26/2022 999 999 Encounter Details Date Type Department Care Team Description 11/01/2022 Office Visit Cardiology, [facility] [address] [facility] [place] [address] Dianna Alcala CRNP [address] [place] [place] [address] Chest tightness*; Bradycardia; TRIPP (dyspnea on exertion); [...] 2 Tablets before bedtime. 0 03/28/2022 Active [place] Carbonate ER 450 MG Oral Tablet Extended [...] prednisone 3 mL 0 10/15/2022 Active Pen [place] 32G X 5 MMIndications:Hyper glycemia Use as directed. Use with insulin pen 50 Each 0 10/15/2022 Active Nystatin 255271 UNIT/GM External Powder (Nystop)Indications :Tinea cruris Apply [...] . Secondary hyperparathyroidism, non-renal 04/01/2019 [facility] OTHER*[id number] 9 Mild persistent asthma without complicat ion [...] AM EDT Cardiology Outpatient Visit 11/01/2022 Primary Cashier Clerk: NEW PATIENT Past medical history: Palpitations PACs [...] the morning and 2 Tablets before bedtime. [place] Carbonate ER 450 MG Oral Tablet Extended [...] while on prednisone 3 mL 0 Nystatin 540496 UNIT/GM External Powder (Nystop) Apply topically to [...] injection once monthly 50 Each 0 Pen [place] 32G X 5 MM Use as directed. Use with insulin pen 50 Each 0 No current facility-administered medications for this visit. Past Medical History: Diagnosis Date Adult-onset Still's disease ([facility]) In her 20s, on steroids x 1 year Asthma with allergic rhinitis 06/14/2011 Bipolar disorder ([facility]) sees Dr. Dyer Bipolar I disorder, most recent episode depressed, mild ([facility]) 01/28/[address] Dyer BMI 40.0-44.9, adult ([facility]) 06/07/2020 Bunion of great toe [...] DM type 2, not at goal ([facility]) 01/29/2014 = 8.6 Dyslipidemia 02/26/2009 [...] by Chun Bravo MD at ENDOSCOPY [facility] COLONOSCOPY, DIAGNOSTIC (RECTUM) 10/06/2022 COLONOSCOPY FLEXIBLE PROXIMAL DIAGNOSTIC performed by Chun Bravo MD at ENDOSCOPY [facility] DILATION AND CURETTAGE (D&C) N/A 09/16/2016 DILATION AND CURETTAGE performed by Moses Taylor DO at OR [facility] EGD, FLEXIBLE, DIAGNOSTIC 2009 EGD, FLEXIBLE, DIAGNOSTIC 10/25/2017 benign fundic gland polyp, acid reflux/[facility] EGD, FLEXIBLE, DIAGNOSTIC N/A 04/11/2019 ESOPHAGOGASTRODUODENOSCOPY (EGD), FLEXIBLE, TRANSORAL, DIAGNOSTIC performed by Escobar Leon, [facility] OR [facility] EGD, FLEXIBLE, DIAGNOSTIC N/A 07/20/2020 ESOPHAGOGASTRODUODENOSCOPY (EGD), FLEXIBLE, TRANSORAL, DIAGNOSTIC performed by Brendon Berg DO at ENDOSCOPY [facility] EGD, FLEXIBLE, DIAGNOSTIC N/A 02/03/2021 ESOPHAGOGASTRODUODENOSCOPY (EGD), FLEXIBLE, TRANSORAL, DIAGNOSTIC performed by Escobar Leon [facility] OR [facility] EGD, FLEXIBLE, DIAGNOSTIC N/A 03/26/2021 ESOPHAGOGASTRODUODENOSCOPY (EGD), FLEXIBLE, TRANSORAL, DIAGNOSTIC performed by Escobar Leon [facility] OR [facility] EGD, FLEXIBLE, DIAGNOSTIC 06/09/2021 normal bx / ESOPHAGOGASTRODUODENOSCOPY (EGD), FLEXIBLE, TRANSORAL, DIAGNOSTIC performed by Carlotta Duke MD at ENDOSCOPY [facility] EGD, FLEXIBLE, DIAGNOSTIC 11/06/2021 Gastroparesis / INPT [facility] EGD, FLEXIBLE, DIAGNOSTIC 10/06/2022 ESOPHAGOGASTRODUODENOSCOPY (EGD), FLEXIBLE, TRANSORAL, DIAGNOSTIC performed by Chun Bravo MD at ENDOSCOPY [facility] EGD, W/ENDOSCOPIC US N/A 06/12/2018 ESOPHAGOGASTRODUODENOSCOPY (EGD), FLEXIBLE, TRANSORAL, ENDOSCOPIC ULTRASOUND performed by Hema Pino DO at ENDOSCOPY [facility] ESOPH FUNCT/REFLUX TEST,MUCOSAL PH 07/20/2020 GASTRO REFLUX TEST WITH MUCOSAL TELEMETRY PH ELECTRODE performed by Brendon Berg DO at [facility] INSERT INTRAUTERINE DEVICE (IUD) N/A 09/16/2016 INSERTION OF INTRAUTERINE DEVICE performed by Moses Taylor DO at OR [facility] KNEE ARTHROSCOPY/SURGERY meniscus tear LAPAROSCOPE PROCEDURE, LIVER N/A 04/11/2019 UNLISTED LAPAROSCOPIC PROCEDURE LIVER performed by Escobar Leon MD at [facility] LAPAROSCOPIC GASTRIC BYPASS/GUCCI-EN-Y N/A 04/11/2019 LAPAROSCOPIC GASTRIC RESTRICTIVE BYPASS GUCCI EN Y performed by Escobar Leon MD at [facility] LAPAROSCOPY; CHOLECYSTECTOMY N/A 04/11/2019 LAPAROSCOPIC CHOLECYSTECTOMY performed by Escobar Leon MD at [facility] LAPAROSCOPY; CHOLECYSTECTOMY N/A 03/26/2021 LAPAROSCOPIC CHOLECYSTECTOMY performed by Escobar Leon MD at [facility] PARAESOPHAGEAL HERNIA REPAIR, LAP W/ MESH N/A 03/26/2021 LAPAROSCOPIC PARAESOPHAGEAL HERNIA REPAIR W/MESH performed by Escobar Leon MD at [facility] PARAESOPHAGEAL HERNIA REPAIR, LAP W/O MESH N/A 03/26/2021 LAPAROSCOPIC PARAESOPHAGEAL HERNIA REPAIR WO/ MESH performed by Escobar Leon MD at [facility] TRANSECTION VAGUS NRV,TRUNCAL Bilateral 03/26/2021 LAPAROSCOPIC TRANSECTION VAGUS NERVES TRUNCAL performed by Escobar Leon MD at OR [facility] Social History Tobacco Use Smoking status: [...] repeating a BMP in 1 week. ? Cohutta use contributing to hypervolemia Echo obtained to [...] performance of separately billed services. BETTY Gomez [facility], Department of Cardiology This chart was completed in part utilizing True Fit Speech Voice Recognition Software. Grammatical errors, random [...] Mcgovern CRNP [address] [place] [address] 12/07/2022 Office Visit Gastroenterology Bindu Beltran CRNP [address] [place] [address] 12/15/2022 Office Visit Sleep Disorders Shaniqua Spann DO [address] [place] [address] 01/20/2023 Office Visit Pharmacy [place], [facility] [address] [place], [place] [address] [address] 07/03/2023 Imaging Radiology Pending Results Name Type [...] were consensually agreed upon. Care Teams Cook Railroad Relationship Specialty Start Date End Date Nam Squires DO [address] [place] [address] PCP - General Family Medicine 12/02/19 documented as of this encounter
--- OUTSIDE RECORDS SUMMARY | 2023-04-01 23:38 | External Medical Summary | Summary of Care ---
Author Name Unknown Organization [facility] Address [address] [facility] [place] [address] Phone [phone] Care Team Providers Care Veterinary Poultry Inspector Name Role Phone Nam Squires DO Primary Care Provider [phone] Reason for Visit * Reason Onset Date Comments Appointment 11/01/2022 Nuc/echo Encounter Details Date Type Department Care Team Description 11/01/2022 Telephone Cardiology, [facility] [address] [place] [address] Dianna Alcala CRNP [address] [place] [address] Appointment (Nuc/echo) Allergies Active Allergy Reactions Severity Noted Date [...] 2 Tablets before bedtime. 0 03/28/2022 Active [facility] Carbonate ER 450 MG Oral Tablet [...] prednisone 3 mL 0 10/15/2022 Active Pen [place] 32G X 5 MMIndications:Hyperg lycemia Use as directed. Use with insulin pen 50 Each 0 10/15/2022 Active Nystatin 733713 UNIT/GM External Powder (Nystop)Indications: Tinea cruris Apply [...] . Secondary hyperparathyroidism, non-renal 04/01/2019 [facility] OTHER*[id number] 9 Mild persistent asthma without complicat ion [...] * Telephone Encounter - COLTEN Watkins - 11/01/2022 12:24 PM EDT Please assist with scheduling nuc and echo vanessa per check out note. Thank you. documented in this encounter Plan of Treatment Upcoming Encounters Date Type Specialty Care Team Description 12/05/2022 Office Visit Cardiology Mone Mcgovern CRNP [address] [place] [address] 12/07/2022 Office Visit Gastroenterology Bindu Beltran CRNP [address] [place] [address] 12/15/2022 Office Visit Sleep Disorders Shaniqua Spann, DO [address] [place] [address] 01/20/2023 [address] [place] [address] [address] 07/03/2023 Imaging Radiology Scheduled Procedures Name Priority [...] and were consensually agreed upon. Care Teams Veterinary Poultry Inspector Relationship Specialty Start Date End Date Nam Squirse DO [address] [place] [address] PCP - General Family Medicine 12/02/19 documented as of this encounter
--- OUTSIDE RECORDS SUMMARY | 2023-04-01 23:38 | External Medical Summary ---
Author Name Unknown Address Unknown Organization K01:[facility] - [address] [place] [address] Laboratory Report Ordering Provider Test Date Status IRIS YOUNGER 11/01/2022 12:40:23 Final Observation Date Value Abnormality Reference (Units ) Status TSH 11/01/2022 12:40:23 5.54 Above high normal 0. 27-4.20 (uIU/mL) Final Performing Location [facility] - [address] [place] [address]
--- OUTSIDE RECORDS SUMMARY | 2023-04-01 23:38 | External Medical Summary ---
Author Name Unknown Address Unknown Organization [id number]:[facility] [address] [place] [address] Laboratory Report Ordering Provider Test Date Status IRIS YOUNGER 11/01/2022 12:40:23 Final Observation Date Value Abnormality Reference (Units ) Status BUN 11/01/2022 12:40:23 21 Above high normal 6-20 (mg/dL) Final Creatinine 11/01/2022 12:40:23 0.8 0.5-1.0 (mg/dL) Final Glomerular filtration rate/1.73 sq M.predicted [Volume Rate/Area] in Serum, Plasma or Blood by Creatinine-based formula (CKD-EPI) 11/01/2022 12:40:23 80 >=60 (mL/min) Final eGFR is calculated based on the CKD-EPI 2020 equation SODIUM 11/01/2022 12:40:23 140 135-146 (m mol/L) Final Potassium 11/01/2022 12:40:23 4.2 3.5-5.1 (m mol/L) Final Cl 11/01/2022 12:40:23 105 98-107 (mm ol/L) Final CO2 11/01/2022 12:40:23 24 22-32 (mmo l/L) Final Anion gap 11/01/2022 12:40:23 11 7-15 (mmol /L) Final Glucose 11/01/2022 12:40:23 219 Above high normal 70 -120 (mg/dL) Final Albumin 11/01/2022 12:40:23 4.0 3.8-5.0 (g /dL) Final AST (Aspartate aminotransferase) 11/01/2022 12:40:23 18 10-35 (U/L) Fin al Alk Phos 11/01/2022 12:40:23 128 35-130 (U/ L) Final Bilirubin, Total 11/01/2022 12:40:23 0.4 <=1 .2 (mg/dL) Final Calcium 11/01/2022 12:40:23 9.3 8.4-10.2 ( mg/dL) Final Protein 11/01/2022 12:40:23 6.4 6.0-8.3 (g /dL) Final ALT (Alanine aminotransferase) 11/01/2022 12:40:23 20 10-35 (U/L) Star teran Performing Location [facility] [facility] [address]
--- OUTSIDE RECORDS SUMMARY | 2023-04-01 23:38 | External Medical Summary ---
Author Name Unknown Address Unknown Organization [id number]:[facility] [place] [address] [place] [address] Laboratory Report Ordering Provider Test Date Status IRIS YOUNGER 11/01/2022 12:40:23 Final Exclude Heart Failure: <300 pg/mL
Diagnose Heart Failure:
Age <50 yr: >450 pg/mL
50-75 yr: >900 pg/mL
>75 yr: >1800 pg/mL
GFR is 30-59 mL/min: >1200 pg/mL or Age- adjusted values
GFR <30 mL/min: do not use, not reliable

Prognostic threshold: 1000 pg/mL Observation Date Value Abnormality Reference (Units ) Status BNP, Pro-hormone 11/01/2022 12:40:23 154 <30 0 (pg/mL) Final Performing Location [facility] [place] [facility] [address] [place] [address]
--- OUTSIDE RECORDS SUMMARY | 2023-04-01 23:38 | External Medical Summary ---
Author Name Unknown Address Unknown Organization [id number]:LABORATORY [facility] [place] - [address] [place] [address] Laboratory Report Ordering Provider Test Date Status IRIS YOUNGER 11/01/2022 12:40:23 Final Observation Date Value Abnormality Reference (Units ) Status Iron 11/01/2022 12:40:23 86 33-151 (ug /dL) Final Iron-binding capacity 11/01/2022 12:40:23 347 250-425 (ug/dL) Final Transferrin Sat % 11/01/2022 12:40:23 25 15 -55 (%) Final Performing Location LABORATORY [facility] [place] - [address] [place] [address]
--- OUTSIDE RECORDS SUMMARY | 2023-04-01 23:38 | External Medical Summary ---
Author Name Unknown Address Unknown Organization K0G:[facility] [address] - [address] [place] [address] Laboratory Report Ordering Provider Test Date Status IRIS YOUNGER 11/01/2022 12:40:23 Final Observation Date Value Abnormality Reference (Units ) Status WBC, Total 11/01/2022 12:40:23 6.69 4.00-10.8 0 (K/uL) Final RBC 11/01/2022 12:40:23 3.48 3.85-5.15 (M/uL) Final Hemoglobin 11/01/2022 12:40:23 10.7 Below low normal 12 .0-15.3 (g/dL) Final HCT 11/01/2022 12:40:23 33.0 Below low normal 36. 0-45.2 (%) Final MCV 11/01/2022 12:40:23 94.8 81.5-97.5 (fL) Final MCH 11/01/2022 12:40:23 30.7 27.0-34.0 (pg) Final MCHC 11/01/2022 12:40:23 32.4 32.0-36.0 (g/dL) Final RDW 11/01/2022 12:40:23 13.8 11.5-15.5 (%) Final Platelets 11/01/2022 12:40:23 344 140-400 (K /uL) Final MPV 11/01/2022 12:40:23 10.0 6.6-11.1 ( fL) Final Performing Location [facility] [address] [place] [address]
--- OUTSIDE RECORDS SUMMARY | 2023-04-01 23:38 | External Medical Summary ---
Author Name Unknown Address Unknown Organization : Laboratory Report Ordering Provider Test Date Status SB YOUNGERISO 11/01/2022 12:40:23 Final Observation Date Value Abnormality Reference (Units ) Status Anaplasma phagocytophilum DNA [Presence] in Blood by CORONA with probe detection 11/01/2022 12:40:23 Not Detected Not Detected Final This test was developed and its analytical performance
characteristics have been determined by [facility]
[employer] [place], [place]. It has
not been cleared or approved by the U.S. Food and Drug
Administration. This assay has been validated pursuant
to the CLIA regulations and is used for clinical
purposes.

Test Performed at:
[facility]
[address] [facility]
[place] [address]
Sajan Peterson M.D., Ph.D.,Director of Laboratories Performing Location
--- OUTSIDE RECORDS SUMMARY | 2023-04-01 23:38 | External Medical Summary ---
Author Name Unknown Address Unknown Organization K01:LABORATORY [facility] - [address] [place] [address] Laboratory Report Ordering Provider Test Date Status IRIS YOUNGER 11/01/2022 12:40:23 Final Observation Date Value Abnormality Reference (Units ) Status Ferritin 11/01/2022 12:40:23 202 Above high normal 13 -150 (ng/mL) Final Postmenopausal women have hi gher ferritin levels than pre-menopausal women. The above reference interval is based on pre-menopausal women. Performing Location LABORATORY [facility] - [address] [place] [address]
--- OUTSIDE RECORDS SUMMARY | 2023-04-01 23:38 | External Medical Summary | Summary of Care ---
Author Name Unknown Organization [facility] Address [address] [facility] [place] [address] Phone [phone] Care Team Providers Care Twisting Machine Operator Name Role Phone Nam Squires DO Primary Care Provider [phone] Reason for Visit * Reason Comments Acute Pt here for complain ts of rash/hives on face/neck/arms/abdomin for the last 3 days Encounter Details Date Type Department Care Team Description 10/13/2022 Office Visit Family Practice [facility] [address] [place] [address] Nam Squires DO [address] [place] [address] Allergic contact dermatitis due to plants, except food*; Type 2 diabetes mellitus with diabetic polyneuropathy, without long-term current use of insulin (HCC) Allergies Active Allergy Reactions Severity Noted Date [...] as of this encounter (statuses as of 10/29/2022) Medications Medication Sig Dispensed Refills Start Date End Date Status BD INSULIN SYRINGE ULTRAFINE 30G X 1/2" 0.3 ML MISC As directed 0 12/15/2014 Active Glucose Blood (Embanet CONTOUR NEXT TEST) STRPIndications:DM type 2, not [...] 2 Tablets before bedtime. 0 03/28/2022 Active [place] Carbonate ER 450 MG Oral Tablet Extended [...] affected area. 80 g 0 10/12/2022 Active Vitamin B12 100 MCG Oral Tablet Take by mouth . 0 3 Discontinue d(Medicatio n List Clean Up) Childrens Chewable Multi Vits Oral Tablet Chewable Take 1 Tablet by mouth in the morning. 0 3 Discontinue d(Medicatio n List Clean Up) Sucralfate 1 GM Oral Tablet (Carafate) Take 1 Tablet by mouth in the morning and 1 Tablet at noon and 1 Tablet in the evening and 1 Tablet before bedtime. 40 Tablet 0 09/02/2022 3 Discontinue d(Medicatio n List Clean Up) Pantoprazole Sodium 40 MG Oral Tablet Delayed Release (Protonix)Indicatio ns:Gastroesophageal reflux disease without esophagitis Take 1 Tablet by mouth in the morning. 30 minutes before the first meal of the day. Do not crush, split or chew the tablet. 30 Tablet 5 09/23/2022 3 Discontinue d(Medicatio n/Dose Changed) methylPREDNISolone 4 MG Oral Tablet Therapy Pack (Medrol Dosepack)Indication s:Allergic contact dermatitis due to plants, except food follow package directions 21 Tablet 0 10/13/2022 3 Discontinue d(Patient preference/ discontinua tion) documented as of this encounter (statuses as of 10/29/2022) Active Problems Problem Noted Date Type 2 [...] . Secondary hyperparathyroidism, non-renal 04/01/2019 [facility] OTHER*[id number] 9 Mild persistent asthma without complicat ion [...] as of this encounter (statuses as of 10/29/2022) Resolved Problems Problem Noted Date Resolved Date [...] as of this encounter (statuses as of 10/29/2022) Immunizations Name Administration Dates Next Due Influenza, [...] Sign Reading Time Taken Comments Blood Pressure 136/64 10/13/2022 6:11 PM EDT Pulse 58 10/13/2022 6:11 PM EDT Temperature 36.7 C (98.1 F) 10/13/2022 6:11 PM ED T Respiratory Rate 16 10/13/2022 6:11 PM EDT Oxygen Saturation 96% 10/13/2022 6:11 PM EDT Inhaled Oxygen Concentration - - Weight 85.2 kg (187 lb 12.8 oz) 10/13/2022 6:11 PM EDT Height 162.6 cm (5' 4") 10/13/2022 6:11 PM EDT Body Mass Index 32.24 10/13/2022 6:11 PM EDT documented in this [...] this encounter Progress Notes * Nam Squires, DO - 10/13/2022 6:14 PM EDT Images from the original note were not included. History of Present Illness Joyce Smith is a 57 year old female that presents for Acute (Pt here for complaints of rash/hives on face/neck/arms/abdomin for the last 3 days) Patient is a 57-year-old female with history diabetes mellitus type 2. Patient complains of itchingred rash face, neck, bilateral arms and abdomen x3 days. Patient noted rash after doing lawn care and picking up grass clippings.Patient denies fatigue fever chills or sweats. Patient denies nasal congestion sore throat or earache. Patient denies cough or sputum. Patient denies chest pain shortnessbreath palpitations or edema. Patient denies abdominal pain nausea vomiting diarrhea constipation. Patient denies urinary frequency dysuria urgency or hematuria. Patient denies neck or back pain, joint pain or swelling. Patient denies headache dizziness weakness or numbness. Review systems otherwise negative Physical Exam Vitals: 10/13/22 1811 Temp: 36.7 C (98.1 F) Pulse: 58 Resp: 16 SpO2: 96% BP: 136/64 BMI: 32.22 General: alert, healthy, and no distress Head: [...] without nodularity Lymph: no palpable lymphadenopathy Heart: regular rate & rhythm, no murmur, and no gallops Lungs: chest symmetric with normal AP diameter, no chest deformities noted, no chest wall tenderness, lungs clear to auscultation Pulses: carotid=2/4 w/o bruits Abdomen: abdomen soft, non-tender, normal bowel sounds, and no masses or organomegaly Back: back symmetric, no curvature, no costovertebral angle tenderness, range of motion is normal Extremities: less than 2 second capillary refill, no joint deformities, effusion, or inflammation Neuro Exam: alert & oriented x 3 with fluent speech, no focal motor/sensory deficits, gait normal, reflexes normal and symmetric Skin: skin color, texture, turgor are normal, erythematous maculopapular rash face, neck, chest, abdomen and bilateral arms, no vesicular or pustular lesions I have reviewed the following results: Hemoglobin A1C Assessment and Plan Allergic contact dermatitis due to plants, except food Medrol Dosepak taper as directed Type 2 diabetes mellitus with diabetic polyneuropathy, without long-term current use of insulin ([facility]) Diabetic diet and exercise - ALBUMIN / CREATININE RATIO, URINE; Future Wrap-Up Time: I spent a total of 20-29 minutes (exact time 20 mins) on the date of service in preparation, delivery, and documentation of the care provided to Joyce Smith excluding any time spent in the performance of separately billed services. documented in this encounter Plan of Treatment Upcoming Encounters Date Type Specialty Care Team Description 11/01/2022 Office Visit Cardiology Dianna Alcala CRNP [address] [place] [address] 12/07/2022 Office Visit Gastroenterology Bindu Beltran CRNP [address] [place] [address] 12/15/2022 Office Visit Sleep Disorders Shaniqua Spann DO [address] [place] [address] 01/20/2023 Office Visit [facility], [address] [address] 07/03/2023 Imaging Radiology Scheduled Orders Name Type Priority Associated Diagnoses Orde r Schedule ALBUMIN / CREATININE RATIO, URINE Lab Routine Type 2 diabetes mellitus with diabetic polyneuropathy, without long-term current use of insulin (HCC) Expected: 10/13/2022 (Approximate), Expires: 10/13/2023 Scheduled Procedures Name Priority Associated Diagnoses Date/Ti [...] as of this encounter Visit Diagnoses Diagnosis Allergic contact dermatitis due to plants, except food- Primary Contact dermatitis and other eczema due to plants (except food) Type 2 diabetes mellitus with diabetic polyneuropathy, without long-term current use of insulin (HCC) documented in this encounter Advance Directives [...] and were consensually agreed upon. Care Teams Twisting Machine Operator Relationship Specialty Start Date End Date Nam Squires DO [address] [place] [address] PCP - General Family Medicine 12/02/19 documented as of this encounter
--- OUTSIDE RECORDS SUMMARY | 2023-04-01 23:38 | External Medical Summary ---
Author Name Unknown Address Unknown Organization K01:LABORATORY [facility] [place] - [address] [place] [address] Laboratory Report Ordering Provider Test Date Status IRIS YOUNGER 11/01/2022 12:40:23 Final Observation Date Value Abnormality Reference (Units ) Status HbA1C 11/01/2022 12:40:23 7.2 Above high normal 4. 0-5.6 (%) Final The use of HbA1c to monitor glycemic status is based on normal hemoglobin and HbA composition. This test should not be used in patients with abnormal hemoglobin that affects the half life of the red blood cell or the in vivo glycation rates. Glucose, estimated average 11/01/2022 12:40:23 160 Above high normal <126 (mg/dL) Star teran Performing Location LABORATORY [facility] [place] - [address] [place] [address]
--- OUTSIDE RECORDS SUMMARY | 2023-04-01 23:38 | External Medical Summary ---
Author Name Unknown Address Unknown Organization K01:[facility] [place] [address] [facility] [address] [facility] [address] Laboratory Report Ordering Provider Test Date Status IRIS YOUNGER 11/01/2022 12:40:23 Final Observation Date Value Abnormality Reference (Units ) Status Borrelia burgdorferi IgG and IgM [Interpretation] in Serum by Immunoassay 11/01/2022 12:40:23 Negative Negative Final Performing Location [facility] [place] [address] [facility] [address]
--- OUTSIDE RECORDS SUMMARY | 2023-04-01 23:38 | External Medical Summary | Summary of Care ---
Author Name Unknown Organization [facility] Address [address] [facility] [place] [address] Phone [phone] Care Team Providers Care Manager Port Name Role Phone Nam Squires DO Primary Care Provider [phone] Reason for Visit * Reason Comments Outpatient Testing Encounter Details Date Type Department Care Team Description 11/01/2022 [facility] [address] [facility] [place] [id number] [facility] [address] [address] Heart palpitations; Premature atrial contraction; Fatigue, unspecified type; TRIPP (dyspnea on exertion); Chest tightness; HTN, goal below 140/90; Hyperlipemia, mixed Allergies [...] 2 Tablets before bedtime. 0 03/28/2022 Active [place] Carbonate ER 450 MG Oral Tablet Extended [...] prednisone 3 mL 0 10/15/2022 Active Pen [place] 32G X 5 MMIndications:Hyperg lycemia Use as directed. Use with insulin pen 50 Each 0 10/15/2022 Active Nystatin 140896 UNIT/GM External Powder (Nystop)Indications: Tinea cruris Apply [...] . Secondary hyperparathyroidism, non-renal 04/01/2019 [facility] OTHER*[id number] 9 Mild persistent asthma without complicat ion [...] Mone Mcgovern CRNP [address] [place] [address] 12/07/2022 Office Visit Gastroenterology Bindu Beltran CRNP [address] [place] [address] 12/15/2022 Office Visit Sleep Disorders Shaniqua Spann DO [address] [place] [address] 01/20/2023 Office Visit [facility]acy [facility] [address] [place] [address] 07/03/2023 Imaging Radiology Pending Results Name Type [...] 12:40 PM EDT LYME DISEASE ANTIBODY SCREEN Lab Routine Heart palpitations Premature atrial contraction Fatigue, unspecified type TRIPP (dyspnea on exertion) Chest tightness HTN, goal below 140/90 Hyperlipemia, mixed 11/01/2022 12:40 PM EDT Scheduled Procedures Name Priority Associated Diagnoses [...] as of this encounter Visit Diagnoses Diagnosis Heart palpitations Palpitations Premature atrial contraction Supraventricular premature beats Fatigue, unspecified type TRIPP (dyspnea on exertion) [...] were consensually agreed upon. Care Teams Manager Port Relationship Specialty Start Date End Date Nam Squires DO [address] [place] [address] PCP - General Family Medicine 12/02/19 documented as of this encounter
--- OUTSIDE RECORDS SUMMARY | 2023-04-01 23:38 | External Medical Summary | Summary of Care ---
Author Name Unknown Organization [facility] Address [address] [facility] [place] [address] Phone [phone] Care Team Providers Care Grazing Aide Name Role Phone ShawNam Primary Care Provider Reason for Visit * Auth/Cert Specialty Diagnoses / Procedures Referred By Gustavo nelson Referred To Contact Diagnoses Dark stools Abdominal pain, unspecified abdominal location Nausea Abnormal CT scan, colon Dark stools [R19.5] Abdominal pain, unspecified abdominal location [R10.9] Nausea [R11.0] Abnormal CT scan, colon [R93.3] Procedures EGD, FLEXIBLE, DIAGNOSTIC COLONOSCOPY, DIAGNOSTIC (RECTUM) ESOPHAGOGASTRODUODENOSCOPY (EGD), FLEXIBLE, TRANSORAL, DIAGNOSTIC COLONOSCOPY FLEXIBLE PROXIMAL DIAGNOSTIC Referral ID Status Reason Start Date Expiration Date Visits Re quested Visits Authorized [id number] Encounter Details Date Type Department Care Team Description 10/06/2022 Hospital Encounter ENDO [facility], Endoscopy Room [facility] [address] [place] [id number] Chun Bravo MD [address] [place] [address] Various: UGI,GICOLON Allergies Active Allergy Reactions Severity Noted Date [...] as of this encounter (statuses as of 10/07/2022) Medications Medication Sig Dispensed Refills Start Date [...] Active Levothyroxine Sodium 112 MCG Oral Tablet (Levoxyl)Indications: Acquired hypothyroidism (Take 1 tablet by mouth daily at least 30 min prior to breakfast or other meds) 90 Tablet 3 12/09/2021 Active Vitamin B12 100 MCG Oral Tablet Take by mouth . 0 Active busPIRone HCl 10 MG Oral Tablet (Buspar) 2 Tablets in the morning and 2 Tablets before bedtime. 0 03/28/2022 Active [place] Carbonate ER 450 MG Oral Tablet Extended Release (Lithobid ER) Take 1 Tablet by mouth in the morning. In the morning.. 0 03/28/2022 Active rOPINIRole HCl 0.5 MG Oral Tablet (Requip)Indications:R LS (restless legs syndrome) Take 1 Tablet by [...] the tablet. 30 Tablet 5 09/23/2022 Active documented as of this encounter (statuses as of 10/07/2022) Active Problems Problem Noted Date Type 2 [...] . Secondary hyperparathyroidism, non-renal 04/01/2019 [facility] OTHER*[id number] 9 Mild persistent asthma without complicat ion [...] term Iron deficiency anemia Overview: sees Dr. Bueon - on IV iron Generalized osteoarthritis COLTEN (obstructive sleep apnea) Overview: 01/17/14 pt has set at 12cwp CPAP Plus (pt set machine to 18 cwp), F&P FFM 432 06/2008 PSG -- CPAP 10 cwp [facility] documented as of this encounter (statuses as of 10/07/2022) Resolved Problems Problem Noted Date Resolved Date [...] as of this encounter (statuses as of 10/07/2022) Immunizations Name Administration Dates Next Due Influenza, [...] Sign Reading Time Taken Comments Blood Pressure 126/52 10/06/2022 11:55 AM EDT Pulse 53 10/06/2022 11:55 AM EDT Temperature 36.2 C (97.1 F) 10/06/2022 11:36 AM E DT Respiratory Rate 18 10/06/2022 11:55 AM EDT Oxygen Saturation 98% 10/06/2022 11:55 AM EDT Inhaled Oxygen Concentration - - Weight 81.6 kg (180 lb) 10/06/2022 10:55 AM EDT Height 162.6 cm (5' 4") 10/06/2022 10:55 AM EDT Body Mass Index 30.9 10/06/2022 10:55 AM EDT documented in this encounter Functional [...] No 03/26/2021 documented as of this encounter H&P Notes * Chun Bravo MD - 10/06/2022 10:50 AM EDT Procedure(s): Colonoscopy; with Indication(s) of abnormalities on radiologic examination Upper GI Endoscopy; with Indication(s) of upper abdominal symptoms that persist despite an appropriate trial of therapy Endoscopy Pre-Procedure Assessment: Prior to the procedure, the patient was identified. The patient's history, medications and allergies were reviewed as per the Anesthesia Assessment. The patient is competent. The risks and benefits of the proposed procedure and the planned sedation were discussed with the patient. All questions were answered and informed consent for the procedure was obtained. Ht 1.626 m (5' 4") | Wt 81.6 kg (180 lb) | BMI 30.90 kg/m | BSA 1.92 m Physical Exam: Mental Status Examination: alert and oriented. Airway Examination: normal oropharyngeal airway and neck mobility. Respiratory Examination: clear to auscultation. CV Examination: normal. ASA Grade: III - A patient with severe systemic disease. Patient was explained in detail regarding risks, benefits, limitations and alternatives of the above endoscopic procedure. Risks of intravenous sedation used for procedure were also explained. Risks include, but not limited to perforation, bleeding, infection, respiratory distress, cardiac arrest and . Patient is also aware about the possibility of missed lesions. Patient's questions were answered. The patient verbalized understanding of the information and agreed to undergo the procedure. After reviewing the risks and benefits, the patient was deemed in satisfactory condition to undergothe procedure. The anesthesia plan is to use general anesthesia. documented in this encounter Procedure Notes * Nam Squires DO - 10/06/2022 11:00 AM EDTAssociated Order(s): COLONOSCOPY [facility] Patient Name: Joyce Smith Procedure Date: 10/06/2022 11:00 AM Date of : 1965 Admit Type: Outpatient Note Status: Finalized Date of : 1965 Admit Type: Outpatient Age: 57 Room: [facility] 3 Gender: Female Note Status: Finalized Procedure: Colonoscopy Indications: Abnormal CT of the GI tract Providers: Chun Bravo MD (Doctor), Hansel Kennedy RN, Xuan Graham CRNA (Anesthesia Staff) Referring MD: Nam Squires (Referring MD) Medicines: See the Anesthesia note for documentation of the administered medications Complications: No immediate complications. Procedure: Pre-Anesthesia Assessment: - See the other procedure note for documentation of the pre-procedure assessment. - - Patient identification and proposed procedure were verified prior to the procedure by the physician and the nurse. The procedure was verified in the procedure area. - Prior to the procedure, a History and Physical was performed, and patient medications, allergies and sensitivities were reviewed. The patient's tolerance of previous anesthesia was reviewed. - The risks and benefits of the procedure and the sedation options and risks were discussed with the patient. All questions were answered and informed consent was obtained. After I obtained informed consent, the scope was passed under direct vision. All instruments were visually inspected immediately before and after removal from the patient to ensure they are fully intact. Throughout the procedure, the patient's blood pressure, pulse, and oxygen saturations were monitored continuously. The [id number] Colonoscope ([id number]) was introduced through the anus and advanced to the cecum, identified by appendiceal orifice and ileocecal valve. The colonoscopy was performed without difficulty. The patient tolerated the procedure well. The quality of the bowel preparation was good. Findings & Specimens: The perianal and digital rectal examinations were normal. The entire examined colon appeared normal on direct and retroflexion views. Impression: - The entire examined colon is normal on direct and retroflexion views. - No specimens collected. Recommendation: - Discharge patient to home. - Repeat colonoscopy in 10 years for screening purposes. Chun Bravo MD 10/06/2022 11:42:43 AM This report has been signed electronically. CC Letter to: Bindu Beltran (CC) * Nam Squires DO - 10/06/2022 10:59 AM EDTAssociated Order(s): UPPER GI ENDOSCOPY [facility] Patient Name: Joyce Smith Procedure Date: 10/06/2022 10:59 AM Date of : 1965 Admit Type: Outpatient Note Status: Finalized Date of : 1965 Admit Type: Outpatient Age: 57 Room: [facility] 3 Gender: Female Note Status: Finalized Procedure: Upper GI endoscopy Indications: Epigastric abdominal pain Providers: Chun Bravo MD (Doctor), Hansel Kennedy RN, Xuan Graham CRNA (Anesthesia Staff) Referring MD: Nam Squires (Referring MD) Medicines: See the Anesthesia note for documentation of the administered medications Complications: No immediate complications. Procedure: Pre-Anesthesia Assessment: - - Patient identification and proposed procedure were verified prior to the procedure by the physician and the nurse. The procedure was verified in the procedure area. - Prior to the procedure, a History and Physical was performed, and patient medications, allergies and sensitivities were reviewed. The patient's tolerance of previous anesthesia was reviewed. - The risks and benefits of the procedure and the sedation options and risks were discussed with the patient. All questions were answered and informed consent was obtained. After obtaining informed consent, the endoscope was passed under direct vision. All instruments were visually inspected immediately before and after removal from the patient to ensure they are fully intact. Throughout the procedure, the patient's blood pressure, pulse, and oxygen saturations were monitored continuously. The GIF-H180 Endoscope ([id number]) was introduced through the mouth, and advanced to the afferent and efferent jejunal loops. The upper GI endoscopy was accomplished without difficulty. The patient tolerated the procedure well. Findings & Specimens: The esophagus was normal. Evidence of a gastric bypass was found. A gastric pouch with a normal size was found. The staple line appeared intact. The gastrojejunal anastomosis was characterized by healthy appearing mucosa. The jejunojejunal anastomosis was characterized by healthy appearing mucosa. The examined jejunum was normal. Impression: - Normal esophagus. - Gastric bypass with a normal-sized pouch and intact staple line. Gastrojejunal anastomosis characterized by healthy appearing mucosa. - Normal examined efferent and afferent jejunum. - No specimens collected. Recommendation: - Perform a colonoscopy today. Chun Bravo MD 10/06/2022 11:18:05 AM This report has been signed electronically. CC Letter to: Bindu Beltran (CC) documented in this encounter Nursing Notes * Amada Santos RN - 10/06/2022 11:58 AM EDT Patient is alert, pain free, and tolerating po fluids prior to discharge. Patient has been visited by Dr. Bravo. Patient has received and demonstrates understanding of discharge instructions. Patient is transported via w/c to private auto accompanied by endo staff. * Amada Santos RN - 10/06/2022 11:36 AM EDT Patient transferred to post endo s/p EGD and colonoscopy. Patient AA&O x4 Respirations are even and unlabored on room air. NSR in the 40-50's on the monitor. Abdomen soft and non distended. Vital signs stable. * Glenroy Kennedy RN - 10/06/2022 11:35 AM EDT Mid abdominal pressure given per Dr. Bravo to assist with scope advancement. Pt tolerated well See anesthesia record for medication administered during procedure. Glenroy Kennedy RN Pre cleaning of scope at the bedside started by gameroom technician. * Thu Rich RN - 10/06/2022 10:58 AM EDT Patient prepped and ready for procedure. Call larson in reach. * Thu Rich RN - 10/06/2022 10:35 AM EDT The following pt discharge instructions reviewed with pt prior to prodedure: No driving today. No alcohol today. No signing of legal documents. Rest as much as possible today and can return to normal activities tomorrow. No operating any heavy equipment today. Diet as tolerated. Pt verbalized understanding. documented in this encounter Plan of Treatment Upcoming Encounters Date Type Specialty Care Team Description 12/07/2022 Office Visit Gastroenterology Bindu Beltran CRNP [address] [place] [address] 12/15/2022 Office Visit Sleep Disorders Shaniqua Spann, DO [address] [place] [address] 01/20/2023 Office Visit Pharmacy [place], [address] [place] [address] 07/03/2023 Imaging Radiology Scheduled Procedures Name Priority [...] 12/25/2019, Additional history exists GFR 09/01/2023 08/31/2022, 08/, 09/29/2021, Additional history exists TSH 09/01/2023 08/31/2022, 07/12, 08/21/2020, Additional history exists Cologuard 10/20/2023 10/19/2020, 06/06/2017 Lipid Panel 09/02/2024 09/03/2019, 03/14, 12/23/2017, Additional history exists IUD 7-Year 08/12/2028 08/12/2021 DTaP,Tdap,and Td Vaccines (3 - Td or Tdap) 09/03/2031 09/02/2021, 11/18/2010 Colonoscopy 10/06/2032 10/06/2022, 0803/2020, 11/10/2020 Colorectal Cancer Screening 10/06/2032 GARDASIL-HPV IMMUNIZATION SERIES Aged Out No longer eligible based on patient's age to complete this topic MENINGOCOCCAL (MENACTRA/MENVEO) Aged Out No longer eligible based on patient's age to complete this topic documented as of this encounter Medical Devices Not on filedocumented as of this encounter Procedures Procedure Name Priority Date/Time Associated Diagnosis Comments COLONOSCOPY 10/06/2022 11:00 AM EDT UPPER GI ENDOSCOPY 10/06/2022 10 :59 AM EDT documented in this encounter Results * COLONOSCOPY (10/06/2022 11:00 AM EDT) 10/06/2022 11:0 0 AM EDT Procedure Note Nam Squires DO - 10/06/2022 11:[address] [facility] Patient Name: Joyce Smith Procedure Date: 10/06/2022 11:00 AM Date of : 1965 Admit Type: Outpatient Note Status:Finalized Date of : 1965 Admit Type: Outpatient Age: 57 Room: Endo 3 Gender: Female Note Status: Finalized Procedure: Colonoscopy Indications: Abnormal CT of the GI tract Providers: Chun Bravo MD (Doctor), Hansel Kennedy RN,Xuan Graham CRNA (Anesthesia Staff) Referring MD: Nam Squires (Referring MD) Medicines: See the Anesthesia note for documentation of theadministered medications Complications: No immediate complications. Procedure: Pre-Anesthesia Assessment: - See the other procedure note for documentation ofthe pre-procedure assessment. - - Patient identification and proposed procedurewere verified prior to the procedure by the physician and the nurse. Theprocedure was verified in the procedure area. - Prior to the procedure, a History and Physicalwas performed, and patient medications, allergies and sensitivities werereviewed. The patient's tolerance of previous anesthesia was reviewed. - The risks and benefits of the procedure and thesedation options and risks were discussed with the patient. All questions wereanswered and informed consent was obtained. After I obtained informed consent, the scope waspassed under direct vision. All instruments were visually inspected immediatelybefore and after removal from the patient to ensure they are fully intact. Throughout the procedure, the patient's bloodpressure, pulse, and oxygen saturations were monitored continuously. The [id number] ([id number]) was introduced through the anus and advanced to the cecum,identified by appendiceal orifice and ileocecal valve. The colonoscopy was performedwithout difficulty. The patient tolerated the procedure well. The quality of thebowel preparation was good. Findings & Specimens: The perianal and digital rectal examinations were normal. The entire examined colon appeared normal on direct and retroflexionviews. Impression: - The entire examined colon is normal on direct andretroflexion views. - No specimens collected. Recommendation: - Discharge patient to home. - Repeat colonoscopy in 10 years for screeningpurposes. Chun Bravo MD 10/06/2022 11:42:43 AM This report has been signed electronically. CC Letter to: Bindu Beltran (CC) Nam WINKLER LOWER * UPPER GI ENDOSCOPY (10/06/2022 10:59 AM EDT) 10/06/2022 10:5 9 AM EDT Procedure Note Nam Squires DO - 10/06/2022 10:[address] [facility] Patient Name: Joyce Smith Procedure Date: 10/06/2022 10:59 AM Date of : 1965 Admit Type: Outpatient Note Status:Finalized Date of : 1965 Admit Type: Outpatient Age: 57 Room: Endo 3 Gender: Female Note Status: Finalized Procedure: Upper GI endoscopy Indications: Epigastric abdominal pain Providers: Chun Bravo MD (Doctor), Hansel Kennedy RN, Xuan Graham CRNA (Anesthesia Staff) Referring MD: Nam Squires (Referring MD) Medicines: See the Anesthesia note for documentation of theadministered medications Complications: No immediate complications. Procedure: Pre-Anesthesia Assessment: - - Patient identification and proposed procedurewere verified prior to the procedure by the physician and the nurse. Theprocedure was verified in the procedure area. - Prior to the procedure, a History and Physicalwas performed, and patient medications, allergies and sensitivities werereviewed. The patient's tolerance of previous anesthesia was reviewed. - The risks and benefits of the procedure and thesedation options and risks were discussed with the patient. All questions wereanswered and informed consent was obtained. After obtaining informed consent, the endoscope waspassed under direct vision. All instruments were visually inspected immediatelybefore and after removal from the patient to ensure they are fully intact. Throughout the procedure, the patient's bloodpressure, pulse, and oxygen saturations were monitored continuously. The GIF-H180 Endoscope([id number]) was introduced through the mouth, and advanced to the afferent andefferent jejunal loops. The upper GI endoscopy was accomplished without difficulty. Thepatient tolerated the procedure well. Findings & Specimens: The esophagus was normal. Evidence of a gastric bypass was found. A gastric pouch with a normalsize was found. The staple line appeared intact. The gastrojejunal anastomosis was characterized byhealthy appearing mucosa. The jejunojejunal anastomosis was characterized by healthy appearingmucosa. The examined jejunum was normal. Impression: - Normal esophagus. - Gastric bypass with a normal-sized pouch andintact staple line. Gastrojejunal anastomosis characterized by healthy appearingmucosa. - Normal examined efferent and afferent jejunum. - No specimens collected. Recommendation: - Perform a colonoscopy today. Chun Bravo MD 10/06/2022 11:18:05 AM This report has been signed electronically. CC Letter to: Bindu Beltran (CC) Nam Shaw DO GASTRO UPPER documented in this encounter Administered Medications Inactive Administered Medications - up to 3 most recent administrations Medication Order MAR Action Action Date Dose Rate Site isolyte-S pH 7.4 infusion Intravenous, Plasma-LYTE 148, isolyte-S, and isolyte-S pH 7.4 are considered equivalent - including for MAR barcode scanning., CONTINUOUS, Starting on Lynne 10/06/22 at 1115, Until Lynne 10/06/22 at 1613, Pre-Op Restarted 10/06/2022 11:31 AM EDT Continue from Pre-Op 10/06/2022 11:04 AM EDT 10 0 mL/hr New Bag 10/06/2022 10:57 AM EDT 1,000 mL 100 mL/hr documented in this encounter Active and Recently Administered Medications Times are shown in EDT. Continuous Medication Order 10/04/2022 10/05/2022 10/06/2022 isolyte-S pH 7.4 infusion Intravenous, Plasma-LYTE 148, isolyte-S, and isolyte-S pH 7.4 are considered equivalent - including for MAR barcode scanning., CONTINUOUS, Starting on Lynne 10/06/22 at 1115, Until Lynne 10/06/22 at 1613, Pre-Op 1057 (New Bag - Prov ider: Thu Rich RN)1104 (Continue from Pre-Op - Provider: Xuan Graham CRNA)1130 (Paused - Provider: Xuan Graham CRNA - Comment: Switch to gravity)1131 (Restarted - Provider: Xuan Graham CRNA) documented in this encounter Advance Directives Latest [...] and were consensually agreed upon. Care Teams Grazing Aide Relationship Specialty Start Date End Date Nam Squires DO [address] [place] [id number] PCP - General Family Medicine 12/02/19 documented as of this encounter
[2023-04-02 00:02] LABS: Basophils # (auto) 0.04 K/uL (0.00-0.20); Basophils % (auto) 0.6 %; Eosinophils # (auto) 0.19 K/uL (0.00-0.50); Eosinophils % (auto) 2.8 %; Hemoglobin 10.7 g/dl (12.0-16.0); Immature Granulocytes # (auto) 0.03 K/uL (0.01-0.20); Immature Granulocytes % (auto) 0.4 %; Lymphocytes # (auto) 2.43 K/uL (1.20-3.40); Lymphocytes % (auto) 36.3 %; Mean Corpuscular Hemoglobin 27.7 pg (25.0-34.0); Mean Corpuscular Hgb Conc 31.5 g/dL (32.0-36.0); Mean Corpuscular Volume 88.1 fL (80.0-100.0); Mean Platelet Volume 9.6 fL (9.4-12.4); Monocytes # (auto) 0.53 K/uL (0.11-0.59); Monocytes % (auto) 7.9 %; Neutrophils # (auto) 3.47 K/uL (1.40-6.50); Platelet Count 287 K/uL (130-400); RDW Coefficient of Variation 15.6 % (11.5-14.5); RDW Standard Deviation 50.4 fL (36.4-46.3); Red Blood Count 3.86 M/uL (4.20-5.40); White Blood Count 6.69 K/ul (4.8-10.8)
[2023-04-02 00:14] LABS: Albumin Globulin Ratio 1.4 (0.9-2); Albumin Level 3.7 gm/dl (3.4-5.0); BUN Creatinine Ratio 23.6 (10-20); Bilirubin,Total 0.5 mg/dl (0.2-1.0); Calcium 9.1 mg/dl (8.6-10.3); Est GFR (African American) 82.2 ml/min; Est GFR (Non-African American) 70.9 ml/min; Globulin 2.7 gm/dl (2.5-4.0); Potassium 3.5 mmol/L (3.5-5.1); Total Protein 6.4 gm/dl (6.0-8.3)
[2023-04-02 00:21] LABS: Troponin I High Sensitivity 36.3 pg/ml (0-14)
--- NOTE | 2023-04-02 00:35 | Emergency Department Note ---
Impression & Plan Substernal chest pain Admit to the [facility] ED Provider Note NAME: ALDO LINTON AGE: 58 SEX: Female INFORMANT: Patient ED PROVIDER(S): Kristin Parker DO CHIEF COMPLAINT: Substernal chest pain PLAN: Disposition: Admit to the [facility] MEDICAL DECISION MAKING: This is a 58-year-old female patient who presents to the emergency department with 2 distinct episodes of substernal chest pain that radiated through to her back and up into the right side of her jaw. These were both relieved by nitroglycerin. Patient does have a known history of coronary artery disease also has a history of gastroesophageal reflux disease. EKG has no evidence of ischemia at this time but initial troponin was slightly elevated at 36.3 and second troponin went up to 66.8. Other laboratory studies were unremarkable except for significant elevation to glucose at 298. Patient has had previous cardiac cath in fall 2022 was told she had 3 vessel disease but it was not significant enough to require stenting. They started her on anticholesterol medication and gave her nitroglycerin to use. I discussed the case with the [facility] and they will evaluate the patient for further inpatient care and cardiology evaluation. Care/management discussed with: Emergency department watch case polisher and [facility] Triage Nursing notes: Reviewed and agree with them. Vital Signs: reviewed and remarkable for hypertension and bradycardia Chronic Medical/Social Conditions affecting care: Gastroesophageal reflux disease-the patient was recently placed on Carafate but did not tolerate the med; she is scheduled to see gastroenterology this week. Patient has a history of coronary artery disease. In fact she underwent cardiac catheterization this past fall at [facility] was told she had 3 blockages that were not significant enough for stenting. Differential Diagnosis: STEMI, NSTEMI, unstable angina, GERD, aortic dissection Diagnostics, independently interpreted by me: ECG: Sinus bradycardia at a rate of [address] segment elevation or signs of ischemia. There is no ectopy. Cardiac Monitoring: Sinus bradycardia at a rate of 56 Imaging studies: Portable chest x-ray: No acute pulmonary findings as per my independent interpretation HPI: 58 year old Female arrives for evaluation of substernal chest discomfort. Patient describes having an episode of severe substernal chest discomfort at 2 PM this afternoon while she was eating and drinking. She took 2 sublingual nitroglycerin which relieved the pain. She had a brief episode while outside in the cold earlier today. The pain then returned to 10:00 this evening and radiate through to her back and up into the right side of her jaw. She describes the pain as severe. This episode was also relieved with nitroglycerin. PAST MEDICAL HISTORY: See Below, PAST SURGICAL HISTORY: See Below, SOCIAL HISTORY: See Below, HOME MEDICATIONS: See list ALLERGIES: See list VITALS: See Below PHYSICAL EXAMINATION: HEENT: Head - normocephalic and atraumatic. Pupils are equal, round, and reactive to light. Extraocular eye muscles are intact, and sclera are anicteric. Nose - moist nasal mucosa without discharge. Mouth - moist buccal mucosa. Oropharynx is nonerythematous and there is no tonsillar exudate or edema noted. Neck: Supple; no JVD or cervical lymphadenopathy. Heart: Bradycardic rate with a regular rhythm. There is a normal S1 and S2 with no murmurs, clicks, or gallops appreciated. Lungs: Clear to auscultation bilaterally with no wheezes, rales, or rhonchi. Abdomen: Soft, completely nontender, nondistended, with good bowel sounds. There are no palpable pulsatile masses or hepatosplenomegaly. There is no guarding, rigidity, or rebound noted. Extremities: No evidence of cyanosis, clubbing, or edema. There are easily palpable peripheral pulses. Skin: warm and dry with good turgor and no rashes. Emergency department course: The patient was evaluated in room B7. A complete history and physical was performed. Twelve-lead EKG was obtained as described above. An order was placed for continuous cardiac monitoring. Patient was in a sinus bradycardia at a rate of 56. Patient had no further episodes of pain while here in the ER. A portable chest x-ray was performed. I reviewed the labs with the patient and her . Troponin was repeated and elevated. I discussed the case with the [facility] Hospitalist and they will evaluate for further inpatient care. Past Med/Surg History Medical History (Updated 04/02/23 @ 17:12 by Kristin Parker DO) Cancer UTERINE Degenerative disc disease Osteoarthritis Kidney mass NOTED ON ULTRASOUND-[facility]) -F/U [facility] Hypothyroidism Anemia Bipolar disorder Anxiety Cardiac murmur HX Sleep apnea CPAP Asthma LAST USE NEBULIZER 1 YR AGO Diabetes mellitus, type 2 IDDM Hyperlipemia HX Hypertension HX GERD (gastroesophageal reflux disease) UNDER CONTROL Restless leg Surgical History History of herniorrhaphy History of cholecystectomy WITH HIATAL HERNIA REPAIR History of gastric bypass 2020 [facility]-200 LB WT LOSS SINCE History of anesthesia reaction REPORTS SHE WOKE UP DURING KNEE REPLACEMENT SURGERY History of total knee replacement R/L History of tooth extraction History of esophagogastroduodenoscopy (EGD) History of colonoscopy Family History Father Family history of diabetes mellitus Sister Family history of diabetes mellitus Brother Family history of diabetes mellitus Mother Family history of diabetes mellitus Father Family history of esophageal cancer Brother Family history of esophageal cancer Social History Smoking Status: Never smoker Second Hand Exposure: Yes (PARENT SMOKED); Do You Dip or Chew Tobacco: No; Hx Alcohol Use: No Hx Substance Use: No Preferred Language: Iraqi Communication Ability: Effective Evp Required: No Beliefs That Will Affect Care: None Current Living Situation: Spouse current occupational status: other 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 Other Information That Helps Us Care for You: No Feels Safe at Home: Yes Safety Concerns: Feels Safe At This Time Assistive Devices: None Allergies Allergies Allergy/AdvReac Type Severity Reaction Status Date / Time bee venom protein (honey bee) Allergy Severe HIVES AND Verified 04/02/23 02:02 DIFFICULTY BREATHING sucralfate Allergy Severe numbness Verified 04/02/23 02:02 face,lips tongue Cipro Allergy Intermediate heart Verified 10/25/17 08:29 palpatations ciprofloxacin Allergy Intermediate heart Verified 04/02/23 02:02 palpatations clarithromycin Allergy Intermediate NAUSEA AND Verified 04/02/23 02:02 DELUSIONAL clindamycin Allergy Intermediate "FELT LIKE Verified 04/02/23 02:02 MY HEAD EXPLODE" doxepin Allergy Intermediate BURNING TO Verified 04/02/23 02:02 APPLICATION SITE AND JITTERINESS doxycycline Allergy Intermediate ALTERED Verified 04/02/23 02:02 MENTAL STATUS oxycodone Allergy Intermediate HALLUCINATI Verified 04/02/23 02:02 ONS quetiapine Allergy Intermediate HALLUCINATIONS, Verified 04/02/23 02:02 JITTERYNESS valproic acid Allergy Intermediate "LOOSE Verified 04/02/23 02:02 MIND" Penicillins Allergy Unknown Unknown- Verified 04/02/23 02:02 A CHILD gabapentin AdvReac Intermediate Extremely Verified 04/02/23 02:02 tired hydroxyzine AdvReac Intermediate Slept for Verified 04/02/23 02:02 days indomethacin AdvReac Intermediate "SPACED Verified 04/02/23 02:02 OUT" Macrolide Antibiotics AdvReac Intermediate HEADACHE Verified 04/02/23 02:02 AND NAUSEA ranitidine AdvReac Intermediate Slept for Verified 04/02/23 02:02 days alprazolam AdvReac Mild JITTERY Verified 04/02/23 02:02 erythromycin base AdvReac Mild NAUSEA Verified 04/02/23 02:02 Sulfa (Sulfonamide AdvReac Mild UPSET Verified 04/02/23 02:02 Antibiotics) STOMACH Home Meds Home Medications Medication Instructions Recorded Confirmed cyanocobalamin (vitamin B-12) 1,000 mcg PO QAM 05/11/18 04/02/23 1,000 mcg tablet (Vitamin B-12) ropinirole 1 mg tablet 2 mg PO HS 12/03/18 04/02/23 ipratropium 0.5 mg-albuterol 3 mg 3 ml inhalation QID PRN Shortness 04/07/19 04/02/23 (2.5 mg base)/3 mL nebulization Of Breath Or Wheezing soln multivitamin with minerals-folic 2 tab PO QAM 10/28/21 04/02/23 acid 200 mcg chewable tablet (Multivitamin Gummies) ropinirole 0.5 mg tablet 0.5 mg PO DAILY PRN Restless Leg(S) 10/28/21 04/02/23 aspirin 81 mg tablet,delayed 81 mg PO QAM 04/02/23 04/02/23 release insulin aspart U-100 100 unit/mL 10 unit subcut WM 04/02/23 04/02/23 (3 mL) subcutaneous pen (Novolog FlexPen U-100 Insulin aspart) insulin degludec 100 unit/mL (3 20 unit subcut QAM 04/02/23 04/02/23 mL) subcutaneous pen (Tresiba FlexTouch U-100 insulin) levothyroxine 125 mcg tablet 125 mcg PO DAILYBB 04/02/23 04/02/23 lithium carbonate 150 mg capsule 150 mg PO QAM 04/02/23 04/02/23 lithium carbonate 450 mg 450 mg PO QAM 04/02/23 04/02/23 tablet,extended release meclizine 25 mg tablet 25 mg PO TID PRN Dizziness 04/02/23 04/02/23 nitroglycerin 0.4 mg sublingual 0.4 mg sublingual UD PRN Chest Pain 04/02/23 04/02/23 tablet pantoprazole 40 mg tablet,delayed 40 mg PO QAM 04/02/23 04/02/23 release rosuvastatin 20 mg tablet 20 mg PO QAM 04/02/23 04/02/23 tirzepatide 2.5 mg/0.5 mL 2.5 mg subcut WK 04/02/23 04/02/23 subcutaneous pen injector (Teresa) Results & Data (ED) Vital Signs Vital Signs - 24 hr 04/01/23 23:28 04/01/23 23:44 04/01/23 23:56 Temperature 36.5 C Temperature Source Temporal Artery Scan Pulse Rate 56 L 62 Pulse Rate from SpO2 Sensor Respiratory Rate 19 Respiratory Effort / Characteristics Non-Labored Spontaneous Respiratory Depth Normal Respiratory Pattern Regular Blood Pressure 161/78 H Blood Pressure Mean 105 Pulse Oximetry 99 98 Oxygen Delivery Method Room Air Room Air Sepsis Recent Fever Within 48 Hours No Sepsis New/Unexplained Change in Mental Status N/A Sepsis Action Taken by Nursing No Action Required 04/02/23 00:00 04/02/23 00:30 04/02/23 01:00 Temperature Temperature Source Pulse Rate 61 62 59 L Pulse Rate from SpO2 Sensor Respiratory Rate 20 24 14 Respiratory Effort / Characteristics Respiratory Depth Respiratory Pattern Blood Pressure 142/79 H 150/78 H 152/90 H Blood Pressure Mean 100 102 110 Pulse Oximetry 98 99 97 Oxygen Delivery Method Sepsis Recent Fever Within 48 Hours Sepsis New/Unexplained Change in Mental Status Sepsis Action Taken by Nursing 04/02/23 01:30 04/02/23 02:14 Temperature Temperature Source Pulse Rate 60 Pulse Rate from SpO2 Sensor 58 L Respiratory Rate 18 18 Respiratory Effort / Characteristics Respiratory Depth Respiratory Pattern Blood Pressure 144/80 H 174/92 H Blood Pressure Mean 101 119 Pulse Oximetry 96 98 Oxygen Delivery Method Sepsis Recent Fever Within 48 Hours Sepsis New/Unexplained Change in Mental Status Sepsis Action Taken by Nursing Laboratory Data 04/02/23 07:04 04/02/23 07:04 Lab Results 04/01/23 04/02/23 Range/Units 23:40 02:05 WBC 6.69 (4.8-10.8) K/ul RBC 3.86 L (4.20-5.40) M/uL Hgb 10.7 L (12.0-16.0) g/dl Hct 34.0 L (37.0-47.0) % MCV 88.1 (80.0-100.0) fL MCH 27.7 (25.0-34.0) pg MCHC 31.5 L (32.0-36.0) g/dL RDW Std Deviation 50.4 H (36.4-46.3) fL RDW Coeff of Gee 15.6 H (11.5-14.5) % Plt Count 287 (130-400) K/uL MPV 9.6 (9.4-12.4) fL Immature Gran % (Auto) 0.4 % Neut % (Auto) 52.0 % Lymph % (Auto) 36.3 % [place] % (Auto) 7.9 % Eos % (Auto) 2.8 % Baso % (Auto) 0.6 % Neut # (Auto) 3.47 (1.40-6.50) K/uL Lymph # (Auto) 2.43 (1.20-3.40) K/uL [place] # (Auto) 0.53 (0.11-0.59) K/uL Eos # (Auto) 0.19 (0.00-0.50) K/uL Baso # (Auto) 0.04 (0.00-0.20) K/uL Immature Gran # (Auto) 0.03 (0.01-0.20) K/uL Sodium 137 (136-145) mmol/L Potassium 3.5 (3.5-5.1) mmol/L Chloride 106 (98-107) mmol/L Carbon Dioxide 26 (21-32) mmol/L Anion Gap 5 (3-11) BUN 21 (6-23) mg/dl Creatinine 0.89 (0.6-1.2) mg/dl Est Cr Clr Drug Dosing 79.0 ml/min Est GFR ( Amer) 82.2 ml/min Est GFR (Non-Af Amer) 70.9 ml/min BUN/Creatinine Ratio 23.6 H (10-20) Glucose 298 H (70-99(Fasting)) mg/dl Calcium 9.1 (8.6-10.3) mg/dl Total Bilirubin 0.5 (0.2-1.0) mg/dl AST 20 (13-39) U/L ALT 32 (7-52) U/L Alkaline Phosphatase 107 H (34-104) U/L Troponin I High Sens 36.3 H 51.5 H* D (0-14) pg/ml Total Protein 6.4 (6.0-8.3) gm/dl Albumin 3.7 (3.4-5.0) gm/dl Globulin 2.7 (2.5-4.0) gm/dl Albumin/Globulin Ratio 1.4 (0.9-2) Lipase 15 (11-82) U/L Administered Medications Aspirin (Aspirin 81 Mg Ectab) 81 mg PO [facility] Stop: 05/02/23 08:59 Last Admin: 04/02/23 08:18 Dose: 81 mg Documented By: BT Cyanocobalamin (Cyanocobalamin (B-12) 500 Mcg Tablet) 1,000 mcg PO [facility] Stop: 05/02/23 08:59 Last Admin: 04/02/23 08:19 Dose: 1,000 mcg Documented By: BT Insulin Glargine (Lantus Per Unit Charge) 10 units SQ DAILY [facility] Stop: 05/02/23 08:59 Last Admin: 04/02/23 08:57 Dose: Not Given Documented By: EMELI Levothyroxine Sodium (Levothyroxine Sodium 125 Mcg Tablet) [facility]: 05/02/23 06:29 Last Admin: 04/02/23 06:36 Dose: 125 mcg Documented By: CHIN [place] Carbonate ([place] Carbonate 300 Mg Tab) 150 mg PO [facility] Stop: 05/02/23 08:59 Last Admin: 04/02/23 08:20 Dose: 150 mg Documented By: EMELI [place] Carbonate ([place] Carbonate 450 Mg Tabcr) 450 mg PO [facility] Stop: 05/02/23 08:59 Last Admin: 04/02/23 08:19 Dose: 450 mg Documented By: BT Multivitamins/Minerals (Cerovite Adv Formula Tab) 1 tab PO [facility] Stop: 05/02/23 08:59 Last Admin: 04/02/23 08:19 Dose: 1 tab Documented By: EMELI Pantoprazole Sodium (Pantoprazole 40 Mg Tab) [facility] [place] Stop: 05/02/23 08:59 Last Admin: 04/02/23 08:19 Dose: 40 mg Documented By: EMELI Rosuvastatin Calcium (Rosuvastatin Calcium 20 Mg Tab) [facility] [place] Stop: 05/02/23 08:59 Last Admin: 04/02/23 08:20 Dose: 20 mg Documented By: EMELI Discontinued Medications Al Hydrox/Mg Hydrox/Simethicone (Aluminum/Magnesium/Simeth (Maalox Max) 30 Ml Udc) 30 ml PO NOW [facility] Stop: 04/02/23 01:48 Last Admin: 04/02/23 02:19 Dose: 30 ml Documented By: LUIS ALBERTO Famotidine (Pepcid 20mg Iv Push) 20 mg in 5 mls @ 2.5 mls/min IV NOW [facility] Stop: 04/02/23 01:48 Last Admin: 04/02/23 02:20 Dose: 2.5 mls/min Documented By: LUIS ALBERTO Insulin Aspart (Insulin Aspart Per Unit Charge) 0 units SC Q6 [facility] Stop: 05/02/23 03:23 Last Admin: 04/02/23 12:15 Dose: Not Given Documented By: Admin: 04/02/23 07:26 Dose: Not Given Documented By: Admin: 04/02/23 04:45 Dose: Not Given Documented By: CHIN Imaging Data Radiologist's Impression: Chest X-Ray 04/01/23 23:42 XR chest 1V portable CLINICAL HISTORY: Chest pain, nonspecific COMPARISON STUDY: Chest radiograph and chest CT December 14, 2022. FINDINGS: Lung volumes are normal. Lungs are clear. There is no pneumothorax or pleural effusion. Cardiac size is normal. Mediastinal contours are normal. There is no evidence for pulmonary edema. IMPRESSION: No acute cardiopulmonary findings. ACT 112: Negative or not required by law. Electronically signed by: Frandy Nolasco M.D. 04/02/2023 7:27 AM Discharge Plan Visit Data Chief Complaint: Cardiac Assessment Stated Complaint: CHEST PAIN, BACK PAIN, RT JAW PAIN ED Provider: Kristin Parker Discharge Problem: Substernal chest pain Patient Disposition: Admitted As Inpatient Discharge Instructions Interventions: ED Discharge Assessment Last Done: 04/02/23 03:09
[2023-04-02] MEDS ORDERED: ALUMINUM/MAGNESIUM/SIMETH (MAALOX MAX) 30 ML UDC PO STA (01:47)
[2023-04-02] MEDS ORDERED: FAMOTIDINE 20MG IV PUSH 20 MG/5 ML SYR IV STA (01:47)
--- NOTE | 2023-04-02 02:46 | History & Physical Report ---
Date of Service April 02, 2023 Assessment & Plan (1) Chest pain: Plan: 58-year-old female with past med history significant for diabetes, diabetic retinopathy, diabetic polyneuropathy, obstructive sleep apnea, mild persistent asthma, hiatal hernia, hypertension GERD, irritable bowel syndrome with constipation diarrhea, fibroid uterus, complex atypical endometrial hyperplasia, GERD osteoarthritis, restless leg syndrome, degenerative disc disease, iron deficiency anemia, bipolar 1 disorder, history of gastric bypass surgery, comes with chest pain. Yesterday afternoon 2 PM she had chest pain but got resolved. But around 10 PM she had again chest pain 9/10 in severity radiating to the right jaw and took a nitro it seemed to help a little bit but the pain came back again and took another nitro which did not seem to help when she came to the ER. Cu rrently pain is 3/10 in severity. Resting comfortably. Denies any shortness of breath. No nausea. No sweating. No dizziness. No headaches. Some runny nose and cough for last few days. No blurred vision. No earaches. No abdominal pain. Normal bladder movements. Prior to this episode she was ambulating and climbing steps okay. Patient states she was supposed to see GI for acid reflux. GI actually prescribed Carafate but she could not tolerate it. Chest pain History of nonocclusive coronary disease Patient had a cardiac cath in November 2022 showing mid LAD 50% stenosis, proximal mid left circumflex with 30% stenosis and mid RCA with 40% stenosis On medical management aspirin and statin Not on beta-jessica because of bradycardia Currently EKG is okay Initial troponin mildly elevated Will follow serial cardiac enzymes and echo N.p.o. for now Close monitoring telemetry Cardiology consult in a.m. Diabetes Will cut back on long-acting insulins to 10 units as patient currently n.p.o. Sliding scale Will monitor Obstructive sleep apnea CPAP nightly. Hyperlipidemia On statin Restless leg syndrome On ropinirole GERD History of gastric bypass Continue Protonix Will give 1 dose of IV Pepcid Bipolar 1 disorder On lithium Follow lithium levels Hypothyroidism On Synthyroid Follow TSH Asthma Continue home nebs as needed DVT prophylaxis SCDs Disposition Observe in telemetry Full code History of Present Illness Chief Complaint: Chest pain Primary Care Provider: Teodoro Galaviz DO 58-year-old female with past med history significant for diabetes, diabetic retinopathy, diabetic polyneuropathy, obstructive sleep apnea, mild persistent asthma, hiatal hernia, hypertension GERD, irritable bowel syndrome with constipation diarrhea, fibroid uterus, complex atypical endometrial hyperplasia, GERD osteoarthritis, restless leg syndrome, degenerative disc disease, iron deficiency anemia, bipolar 1 disorder, history of gastric bypass surgery, comes with chest pain. Yesterday afternoon 2 PM she had chest pain but got resolved. But around 10 PM she had again chest pain 9/10 in severity radiating to the right jaw and took a nitro it seemed to help a little bit but the pain came back again and took another nitro which did not seem to help when she came to the ER. Currently pain is 3/10 in severity. Resting comfortably. Denies any shortness of breath. No nausea. No sweating. No dizziness. No headaches. Some runny nose and cough for last few days. No blurred vision. No earaches. No abdominal pain. Normal bladder movements. Prior to this episode she was ambulating and climbing steps okay. Patient states she was supposed to see GI for acid reflux. GI actually prescribed Carafate but she could not tolerate it. Past medical history. As mentioned above Past surgical history bilateral knee arthroplasty, colonoscopy, cardiac cath, dilatation curettage, EGD, IUD, laparoscopic gastric bypass Procedure and liver. Laparoscopic cholecystectomy. Laparoscopic paraesophageal hernia repair. Laparoscopic transection of vagus nerves. Social history. . No smoking. No alcohol use. No drug use. Family history. Father had diabetes, esophageal cancer, heart disorder. Mother had bladder cancer. Diabetes. CHF. Hypertension. Maternal grandmother had ovarian cancer. Brother has COPD. Brother has esophageal cancer. Heart disorder. Allergies Allergy/AdvReac Type Severity Reaction Status Date / Time bee venom protein (honey bee) Allergy Severe HIVES AND Verified 04/02/23 02:02 DIFFICULTY BREATHING sucralfate Allergy Severe numbness Verified 04/02/23 02:02 face,lips tongue Cipro Allergy Intermediate heart Verified 10/25/17 08:29 palpatations ciprofloxacin Allergy Intermediate heart Verified 04/02/23 02:02 palpatations clarithromycin Allergy Intermediate NAUSEA AND Verified 04/02/23 02:02 DELUSIONAL clindamycin Allergy Intermediate "FELT LIKE Verified 04/02/23 02:02 MY HEAD EXPLODE" doxepin Allergy Intermediate BURNING TO Verified 04/02/23 02:02 APPLICATION SITE AND JITTERINESS doxycycline Allergy Intermediate ALTERED Verified 04/02/23 02:02 MENTAL STATUS oxycodone Allergy Intermediate HALLUCINATI Verified 04/02/23 02:02 ONS quetiapine Allergy Intermediate HALLUCINATIONS, Verified 04/02/23 02:02 JITTERYNESS valproic acid Allergy Intermediate "LOOSE Verified 04/02/23 02:02 MIND" Penicillins Allergy Unknown Unknown- Verified 04/02/23 02:02 A CHILD gabapentin AdvReac Intermediate Extremely Verified 04/02/23 02:02 tired hydroxyzine AdvReac Intermediate Slept for Verified 04/02/23 02:02 days indomethacin AdvReac Intermediate "SPACED Verified 04/02/23 02:02 OUT" Macrolide Antibiotics AdvReac Intermediate HEADACHE Verified 04/02/23 02:02 AND NAUSEA ranitidine AdvReac Intermediate Slept for Verified 04/02/23 02:02 days alprazolam AdvReac Mild JITTERY Verified 04/02/23 02:02 erythromycin base AdvReac Mild NAUSEA Verified 04/02/23 02:02 Sulfa (Sulfonamide AdvReac Mild UPSET Verified 04/02/23 02:02 Antibiotics) STOMACH Home Medications Medication Instructions Recorded Confirmed Type cyanocobalamin (vitamin B-12) 1,000 mcg PO QAM 05/11/18 04/02/23 History 1,000 mcg tablet (Vitamin B-12) ropinirole 1 mg tablet 2 mg PO HS 12/03/18 04/02/23 History ipratropium 0.5 mg-albuterol 3 mg 3 ml inhalation QID PRN Shortness 04/07/19 04/02/23 History (2.5 mg base)/3 mL nebulization Of Breath Or Wheezing soln multivitamin with minerals-folic 2 tab PO QAM 10/28/21 04/02/23 History acid 200 mcg chewable tablet (Multivitamin Gummies) ropinirole 0.5 mg tablet 0.5 mg PO DAILY PRN Restless Leg(S) 10/28/21 04/02/23 History aspirin 81 mg tablet,delayed 81 mg PO QAM 04/02/23 04/02/23 History release insulin aspart U-100 100 unit/mL 10 unit subcut WM 04/02/23 04/02/23 History (3 mL) subcutaneous pen (Novolog FlexPen U-100 Insulin aspart) insulin degludec 100 unit/mL (3 20 unit subcut QAM 04/02/23 04/02/23 History mL) subcutaneous pen (Tresiba FlexTouch U-100 insulin) levothyroxine 125 mcg tablet 125 mcg PO DAILYBB 04/02/23 04/02/23 History lithium carbonate 150 mg capsule 150 mg PO QAM 04/02/23 04/02/23 History lithium carbonate 450 mg 450 mg PO QAM 04/02/23 04/02/23 History tablet,extended release meclizine 25 mg tablet 25 mg PO TID PRN Dizziness 04/02/23 04/02/23 History nitroglycerin 0.4 mg sublingual 0.4 mg sublingual UD PRN Chest Pain 04/02/23 04/02/23 History tablet pantoprazole 40 mg tablet,delayed 40 mg PO QAM 04/02/23 04/02/23 History release rosuvastatin 20 mg tablet 20 mg PO QAM 04/02/23 04/02/23 History tirzepatide 2.5 mg/0.5 mL 2.5 mg subcut WK 04/02/23 04/02/23 History subcutaneous pen injector (Mounjaro) Past Med/Surg History Medical History Anemia Anxiety Asthma LAST USE NEBULIZER 1 YR AGO Bipolar disorder Cancer UTERINE Cardiac murmur HX Degenerative disc disease Diabetes mellitus, type 2 IDDM GERD (gastroesophageal reflux disease) UNDER CONTROL Hyperlipemia HX Hypertension HX Hypothyroidism Kidney mass NOTED ON ULTRASOUND-[facility]) -F/U JEFFERY Osteoarthritis Restless leg Sleep apnea CPAP Surgical History History of anesthesia reaction REPORTS SHE WOKE UP DURING KNEE REPLACEMENT SURGERY History of cholecystectomy WITH HIATAL HERNIA REPAIR History of colonoscopy History of esophagogastroduodenoscopy (EGD) History of gastric bypass 2020 [facility]-200 LB WT LOSS SINCE History of herniorrhaphy History of tooth extraction History of total knee replacement R/L Family History Father Family history of diabetes mellitus Sister Family history of diabetes mellitus Brother Family history of diabetes mellitus Mother Family history of diabetes mellitus Father Family history of esophageal cancer Brother Family history of esophageal cancer Social History Smoking Status: Never smoker Second Hand Exposure: Yes (PARENT SMOKED); Do You Dip or Chew Tobacco: No; Hx Alcohol Use: No Hx Substance Use: No Preferred Language: Jamaican Communication Ability: Effective Calculus Professor Required: No Beliefs That Will Affect Care: None Current Living Situation: Spouse current occupational status: other 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 ENT- oropharynx clear Neck- supple, no JVD. Lungs- clear to auscultation no wheezing or crackles. Heart- regular rhythm; no murmur, no gallop. Abdomen- normal bowel sounds, soft, nontender, no distension. Extremities- no pretibial edema, no erythema seen. Neuro- alert, oriented x 3; PERRL,no facial palsy; no dysarthria; moves extremities. Skin- warm & dry Results & Data Results & Data Vital Signs (Past 12 Hours) Vital Signs Temp Pulse Resp BP Pulse Ox O2 Del Method 04/02/23 02:14 18 174/92 H 98 04/02/23 01:30 60 18 144/80 H 96 04/02/23 01:00 59 L 14 152/90 H 97 04/02/23 00:30 62 24 150/78 H 99 04/02/23 00:00 61 20 142/79 H 98 04/01/23 23:56 62 04/01/23 23:44 98 Room Air 04/01/23 23:28 36.5 C 56 L 19 161/78 H 99 Room Air Diagnostic Findings Laboratory Results WBC 6.69 K/ul (4.8-10.8) 04/01/23 23:40 RBC 3.86 M/uL (4.20-5.40) L 04/01/23 23:40 Hgb 10.7 g/dl (12.0-16.0) L 04/01/23 23:40 Hct 34.0 % (37.0-47.0) L 04/01/23 23:40 MCV 88.1 fL (80.0-100.0) 04/01/23 23:40 MCH 27.7 pg (25.0-34.0) 04/01/23 23:40 MCHC 31.5 g/dL (32.0-36.0) L 04/01/23 23:40 RDW Std Deviation 50.4 fL (36.4-46.3) H 04/01/23 23:40 RDW Coeff of Gee 15.6 % (11.5-14.5) H 04/01/23 23:40 Plt Count 287 K/uL (130-400) 04/01/23 23:40 MPV 9.6 fL (9.4-12.4) 04/01/23 23:40 Immature Gran % (Auto) 0.4 % 04/01/23 23:40 Neut % (Auto) 52.0 % 04/01/23 23:40 Lymph % (Auto) 36.3 % 04/01/23 23:40 [place] % (Auto) 7.9 % 04/01/23 23:40 Eos % (Auto) 2.8 % 04/01/23 23:40 Baso % (Auto) 0.6 % 04/01/23 23:40 Neut # (Auto) 3.47 K/uL (1.40-6.50) 04/01/23 23:40 Lymph # (Auto) 2.43 K/uL (1.20-3.40) 04/01/23 23:40 [place] # (Auto) 0.53 K/uL (0.11-0.59) 04/01/23 23:40 Eos # (Auto) 0.19 K/uL (0.00-0.50) 04/01/23 23:40 Baso # (Auto) 0.04 K/uL (0.00-0.20) 04/01/23 23:40 Immature Gran # (Auto) 0.03 K/uL (0.01-0.20) 04/01/23 23:40 Sodium 137 mmol/L (136-145) 04/01/23 23:40 Potassium 3.5 mmol/L (3.5-5.1) 04/01/23 23:40 Chloride 106 mmol/L (98-107) 04/01/23 23:40 Carbon Dioxide 26 mmol/L (21-32) 04/01/23 23:40 Anion Gap 5 (3-11) 04/01/23 23:40 BUN 21 mg/dl (6-23) 04/01/23 23:40 Creatinine 0.89 mg/dl (0.6-1.2) 04/01/23 23:40 Est Cr Clr Drug Dosing 79.0 ml/min 04/01/23 23:40 Est GFR ( Amer) 82.2 ml/min 04/01/23 23:40 Est GFR (Non-Af Amer) 70.9 ml/min 04/01/23 23:40 BUN/Creatinine Ratio 23.6 (10-20) H 04/01/23 23:40 Glucose 298 mg/dl (70-99(Fasting)) H 04/01/23 23:40 Calcium 9.1 mg/dl (8.6-10.3) 04/01/23 23:40 Total Bilirubin 0.5 mg/dl (0.2-1.0) 04/01/23 23:40 AST 20 U/L (13-39) 04/01/23 23:40 ALT 32 U/L (7-52) 04/01/23 23:40 Alkaline Phosphatase 107 U/L (34-104) H 04/01/23 23:40 Troponin I High Sens 36.3 pg/ml (0-14) H 04/01/23 23:40 Total Protein 6.4 gm/dl (6.0-8.3) 04/01/23 23:40 Albumin 3.7 gm/dl (3.4-5.0) 04/01/23 23:40 Globulin 2.7 gm/dl (2.5-4.0) 04/01/23 23:40 Albumin/Globulin Ratio 1.4 (0.9-2) 04/01/23 23:40 Lipase 15 U/L (11-82) 04/01/23 23:40 ECG Additional Comments: ECG. Sinus bradycardia rate of 59. No significant change was found. Code Status & VTE Plan VTE Prophylaxis Plan VTE Prophylaxis will be ordered: Yes
[2023-04-02] MEDS ORDERED: NITROGLYCERIN SL 0.4 MG/TAB TAB SL PRN (03:24)
[2023-04-02] MEDS ORDERED: MECLIZINE HCL 25 MG TAB PO PRN (03:24)
[2023-04-02] MEDS ORDERED: ONDANSETRON INJ 2 MG/ML 2 ML VIAL IV PRN (03:24)
[2023-04-02] MEDS ORDERED: POLYETHYLENE (MIRALAX) 17 GM PACK PO PRN (03:24)
[2023-04-02] MEDS ORDERED: GLUCAGON FOR INJ 1 MG VIAL SQ PRN (03:24)
[2023-04-02] MEDS ORDERED: CARBOHYDRATES FOR HYPOGLYCEMIA PO PRN (03:24)
[2023-04-02] MEDS ORDERED: GLUCOSE 10 TAB/TUBE PO PRN (03:24)
[2023-04-02] MEDS ORDERED: DEXTROSE 50% 50 ML SYRINGE IV PRN (03:24)
[2023-04-02] MEDS ORDERED: ALBUT/IPRATROP 3MG/0.5MG NEB 3 ML VIAL INH PRN (03:24)
[2023-04-02] MEDS ORDERED: GLUCOSE 40% GEL 15 GM TUBE PO PRN (03:24)
[2023-04-02] MEDS ORDERED: rOPINIRole HCL 0.25 MG TABLET PO PRN (03:24)
[2023-04-02] MEDS: INSULIN ASPART PER UNIT CHARGE SC SCH ×5 (04:45→20:06)
[2023-04-02] MEDS: LEVOTHYROXINE SODIUM 125 MCG TABLET PO SCH (06:36)
--- NOTE | 2023-04-02 07:11 | Electrocardiogram Report ---
Test Reason : Blood Pressure : / mmHG Vent. Rate : 059 BPM Atrial Rate : 059 BPM P-R Int : 168 ms QRS Dur : 090 ms QT Int : 418 ms P-R-T Axes : 064 011 060 degrees QTc Int : 413 ms Sinus bradycardia Otherwise normal ECG When compared with ECG of 14-DEC-2022 10:58, No significant change was found Confirmed by Moses Wong ([id number]) on 04/02/2023 7:11:06 AM Referred By: REFERRED SELF Confirmed By:Matt Wong
[2023-04-02 07:20] LABS: Basophils # (auto) 0.03 K/uL (0.00-0.20); Basophils % (auto) 0.5 %; Eosinophils # (auto) 0.22 K/uL (0.00-0.50); Eosinophils % (auto) 3.4 %; Hematocrit (blood only) 30.5 % (37.0-47.0); Hemoglobin 9.9 g/dl (12.0-16.0); Immature Granulocytes # (auto) 0.01 K/uL (0.01-0.20); Immature Granulocytes % (auto) 0.2 %; Lymphocytes # (auto) 2.64 K/uL (1.20-3.40); Lymphocytes % (auto) 41.4 %; Mean Corpuscular Hgb Conc 32.5 g/dL (32.0-36.0); Mean Corpuscular Volume 86.2 fL (80.0-100.0); Mean Platelet Volume 9.3 fL (9.4-12.4); Monocytes # (auto) 0.59 K/uL (0.11-0.59); Monocytes % (auto) 9.2 %; Neutrophils # (auto) 2.89 K/uL (1.40-6.50); Neutrophils % (auto) 45.3 %; Platelet Count 249 K/uL (130-400); RDW Coefficient of Variation 15.4 % (11.5-14.5); RDW Standard Deviation 48.6 fL (36.4-46.3); Red Blood Count 3.54 M/uL (4.20-5.40); White Blood Count 6.38 K/ul (4.8-10.8)
--- NOTE | 2023-04-02 07:29 | XRay Report ---
XR chest 1V portable CLINICAL HISTORY: Chest pain, nonspecific COMPARISON STUDY: Chest radiograph and chest CT December 14, 2022. FINDINGS: Lung volumes are normal. Lungs are clear. There is no pneumothorax or pleural effusion. Car diac size is normal. Mediastinal contours are normal. There is no evidence for pulmonary edema. IMPRESSION: No acute cardiopulmonary findings. ACT 112: Negative or not required by law. Electronically signed by: Frandy Nolasco M.D. 04/02/2023 7:27 AM
[2023-04-02 07:37] LABS: BUN Creatinine Ratio 26.9 (10-20); Calcium 9.2 mg/dl (8.6-10.3); Est GFR (African American) 111.5 ml/min; Est GFR (Non-African American) 96.2 ml/min; Magnesium 1.8 mg/dl (1.7-2.4); Potassium 3.8 mmol/L (3.5-5.1)
[2023-04-02 08:10] LABS: Troponin I High Sensitivity 66.8 pg/ml (0-14)
[2023-04-02] MEDS: ASPIRIN 81 MG ECTAB PO SCH (08:18)
[2023-04-02] MEDS: LITHIUM CARBONATE 450 MG TABCR PO SCH (08:19)
[2023-04-02] MEDS: PANTOprazole 40 MG TAB PO SCH (08:19)
[2023-04-02] MEDS: CEROVITE ADV FORMULA TAB PO SCH (08:19)
[2023-04-02] MEDS: CYANOCOBALAMIN (B-12) 500 MCG TABLET PO SCH (08:19)
[2023-04-02] MEDS: ROSUVASTATIN CALCIUM 20 MG TAB PO SCH (08:20)
[2023-04-02] MEDS: LITHIUM CARBONATE 300 MG TAB PO SCH (08:20)
[2023-04-02] MEDS: LANTUS PER UNIT CHARGE SQ SCH (08:57)
[2023-04-02 09:33] LABS: Thyroid Stimulating Hormone 0.017 uIu/ml (0.300-4.500)
[2023-04-02 10:09] LABS: T4 Free Thyroxine 1.3 ng/dl (0.61-1.60)
--- NOTE | 2023-04-02 13:28 | Electrocardiogram Report ---
Test Reason : Blood Pressure : / mmHG Vent. Rate : 056 BPM Atrial Rate : 056 BPM P-R Int : 186 ms QRS Dur : 088 ms QT Int : 452 ms P-R-T Axes : 072 026 063 degrees QTc Int : 436 ms Sinus bradycardia Otherwise normal ECG When compared with ECG of 01-APR-2023 23:34, No significant change was found Confirmed by Moses Wong ([id number]) on 04/02/2023 1:28:32 PM Referred By: REFERRED SELF Confirmed By:Matt Wong
[2023-04-02] MEDS ORDERED: Nursing to Pharmacy Communication SCH (15:30)
--- NOTE | 2023-04-02 16:38 | Cardiology Consultation ---
Date of Consultation April 02, 2023 Assessment & Plan (1) NSTEMI (non-ST elevated myocardial infarction): pt ruled in for a NSTEMI start IV heparin hold off on BB due to bradycardia given the complexity of her prior cath in 11/2022 [place] [facility] [place] cardiac [place] and intravascular ultrasound of her LAD lesion also pt prefers to not have the procedure locally (2) HTN (hypertension): BP is good currently not on any anti-hypertensive agents (3) Diabetes: (4) Chest pain: Hy (5) Hyperlipemia: continue crestor-last LDL ws good Plan 58-year-old female with past med history significant for CAD s/p cath in 11/2022 with mLAD 70% but FFR negative, Cx 30% and RCA 30%-recommended medical management, HTN, HLD, diabetes, diabetic retinopathy, diabetic polyneuropathy, obstructive sleep apnea, mild persistent asthma, hiatal hernia, hypertension GERD, irritable bowel syndrome with constipation diarrhea, fibroid uterus, complex atypical endometrial hyperplasia, GERD osteoarthritis, restless leg syndrome, degenerative disc disease, iron deficiency anemia, bipolar 1 disorder, history of gastric bypass surgery, comes with chest pain ruled in for ACS. [place] [facility] [place] cardiac catheter[place] due to her LAD lession and now in nick setting of a NSTEMI I discussed the case with Dr. Villa who kindly accepted pt; no beds are currently available but pt will be transfered once one comes open-probably monday start IV heparin no BB Due to bradycardia I discussed with the hospitalist my plan and recommendations and they agreed. History of Present Illness Reason for Consultation: elevated troponin and chest pain Requesting Physician: hospitalist Attending Physician: Jensen Theodore MD History of Present Illness pt has been having intermittent chest pressure for the last 2 weeks; at first it was more after eating so she thought it was gastritis so she was prescribed carafate but had a reaction to this medication (numbness around her cecil-orbital area). She continue do have episodes; then the day of admission she had a severe episode 11/20 that only subsided with a SL nitro; she then had this a second time so came to the ER. her initial troponin was negative but subsequent became positive her last episode of chest pain was last night Allergies Allergy/AdvReac Type Severity Reaction Status Date / Time bee venom protein (honey bee) Allergy Severe HIVES AND Verified 04/02/23 02:02 DIFFICULTY BREATHING sucralfate Allergy Severe numbness Verified 04/02/23 02:02 face,lips tongue Cipro Allergy Intermediate heart Verified 10/25/17 08:29 palpatations ciprofloxacin Allergy Intermediate heart Verified 04/02/23 02:02 palpatations clarithromycin Allergy Intermediate NAUSEA AND Verified 04/02/23 02:02 DELUSIONAL clindamycin Allergy Intermediate "FELT LIKE Verified 04/02/23 02:02 MY HEAD EXPLODE" doxepin Allergy Intermediate BURNING TO Verified 04/02/23 02:02 APPLICATION SITE AND JITTERINESS doxycycline Allergy Intermediate ALTERED Verified 04/02/23 02:02 MENTAL STATUS oxycodone Allergy Intermediate HALLUCINATI Verified 04/02/23 02:02 ONS quetiapine Allergy Intermediate HALLUCINATIONS, Verified 04/02/23 02:02 JITTERYNESS valproic acid Allergy Intermediate "LOOSE Verified 04/02/23 02:02 MIND" Penicillins Allergy Unknown Unknown- Verified 04/02/23 02:02 A CHILD gabapentin AdvReac Intermediate Extremely Verified 04/02/23 02:02 tired hydroxyzine AdvReac Intermediate Slept for Verified 04/02/23 02:02 days indomethacin AdvReac Intermediate "SPACED Verified 04/02/23 02:02 OUT" Macrolide Antibiotics AdvReac Intermediate HEADACHE Verified 04/02/23 02:02 AND NAUSEA ranitidine AdvReac Intermediate Slept for Verified 04/02/23 02:02 days alprazolam AdvReac Mild JITTERY Verified 04/02/23 02:02 erythromycin base AdvReac Mild NAUSEA Verified 04/02/23 02:02 Sulfa (Sulfonamide AdvReac Mild UPSET Verified 04/02/23 02:02 Antibiotics) STOMACH Home Medications Medication Instructions Recorded Confirmed Type cyanocobalamin (vitamin B-12) 1,000 mcg PO QAM 05/11/18 04/02/23 History 1,000 mcg tablet (Vitamin B-12) ropinirole 1 mg tablet 2 mg PO HS 12/03/18 04/02/23 History ipratropium 0.5 mg-albuterol 3 mg 3 ml inhalation QID PRN Shortness 04/07/19 04/02/23 History (2.5 mg base)/3 mL nebulization Of Breath Or Wheezing soln multivitamin with minerals-folic 2 tab PO QAM 10/28/21 04/02/23 History acid 200 mcg chewable tablet (Multivitamin Gummies) ropinirole 0.5 mg tablet 0.5 mg PO DAILY PRN Restless Leg(S) 10/28/21 04/02/23 History aspirin 81 mg tablet,delayed 81 mg PO QAM 04/02/23 04/02/23 History release insulin aspart U-100 100 unit/mL 10 unit subcut WM 04/02/23 04/02/23 History (3 mL) subcutaneous pen (Novolog FlexPen U-100 Insulin aspart) insulin degludec 100 unit/mL (3 20 unit subcut QAM 04/02/23 04/02/23 History mL) subcutaneous pen (Tresiba FlexTouch U-100 insulin) levothyroxine 125 mcg tablet 125 mcg PO DAILYBB 04/02/23 04/02/23 History lithium carbonate 150 mg capsule 150 mg PO QAM 04/02/23 04/02/23 History lithium carbonate 450 mg 450 mg PO QAM 04/02/23 04/02/23 History tablet,extended release meclizine 25 mg tablet 25 mg PO TID PRN Dizziness 04/02/23 04/02/23 History nitroglycerin 0.4 mg sublingual 0.4 mg sublingual UD PRN Chest Pain 04/02/23 04/02/23 History tablet pantoprazole 40 mg tablet,delayed 40 mg PO QAM 04/02/23 04/02/23 History release rosuvastatin 20 mg tablet 20 mg PO QAM 04/02/23 04/02/23 History tirzepatide 2.5 mg/0.5 mL 2.5 mg subcut WK 04/02/23 04/02/23 History subcutaneous pen injector (Mounjaro) Patient History Medical History (Updated 04/02/23 @ 16:57 by Bibiana Silveira DO) Cancer UTERINE Degenerative disc disease Osteoarthritis Kidney mass NOTED ON ULTRASOUND-[facility]) -F/U JEFFERY Hypothyroidism Anemia Bipolar disorder Anxiety Cardiac murmur HX Sleep apnea CPAP Asthma LAST USE NEBULIZER 1 YR AGO Diabetes mellitus, type 2 IDDM Hyperlipemia HX Hypertension HX GERD (gastroesophageal reflux disease) UNDER CONTROL Restless leg Surgical History History of herniorrhaphy History of cholecystectomy WITH HIATAL HERNIA REPAIR History of gastric bypass 2020 [facility]-200 LB WT LOSS SINCE History of anesthesia reaction REPORTS SHE WOKE UP DURING KNEE REPLACEMENT SURGERY History of total knee replacement R/L History of tooth extraction History of esophagogastroduodenoscopy (EGD) History of colonoscopy Family History Father Family history of diabetes mellitus Sister Family history of diabetes mellitus Brother Family history of diabetes mellitus Mother Family history of diabetes mellitus Father Family history of esophageal cancer Brother Family history of esophageal cancer Social History Smoking Status: Never smoker Second Hand Exposure: Yes (PARENT SMOKED); Do You Dip or Chew Tobacco: No; Hx Alcohol Use: No Hx Substance Use: No Preferred Language: Arabic Communication Ability: Effective Construction Safety Manager Required: No Beliefs That Will Affect Care: None Current Living Situation: Spouse current occupational status: other 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 Other Information That Helps Us Care for You: No Feels Safe at Home: Yes Safety Concerns: Feels Safe At This Time Assistive Devices: None Review of Systems Review of Systems: All systems reviewed & are unremarkable except as noted in HPI & below Physical Exam Physical Exam: aaox3, NAD NC/AT, EOMI Supple No JVD Nrl S1/S2, No murmur CTA b/l no w/r/r soft nt/nd no LE edema b/l skin intact no focal deficits Results & Data Vital Signs (Past 12 Hours) Vital Signs Temp Pulse Pulse Resp BP Pulse Ox O2 Del Method 04/02/23 15:39 59 L 04/02/23 15:00 36.8 C 78 16 123/67 98 Room Air 04/02/23 10:57 36.5 C 55 L 18 146/86 H 97 Room Air 04/02/23 08:15 36.8 C 60 14 145/82 H 97 Room Air 04/02/23 07:26 86 Laboratory Results Cardiac Enzymes 04/01/23 04/02/23 04/02/23 Range/Units 23:40 02:05 07:04 AST 20 (13-39) U/L Troponin I High Sens 36.3 H 51.5 H* D 66.8 H* D (0-14) pg/ml 04/02/23 Range/Units 13:01 AST (13-39) U/L Troponin I High Sens 68.7 H* (0-14) pg/ml CBC 04/01/23 04/02/23 Range/Units 23:40 07:04 WBC 6.69 6.38 (4.8-10.8) K/ul RBC 3.86 L 3.54 L (4.20-5.40) M/uL Hgb 10.7 L 9.9 L (12.0-16.0) g/dl Hct 34.0 L 30.5 L (37.0-47.0) % Plt Count 287 249 (130-400) K/uL Neut # (Auto) 3.47 2.89 (1.40-6.50) K/uL Lymph # (Auto) 2.43 2.64 (1.20-3.40) K/uL Coke # (Auto) 0.53 0.59 (0.11-0.59) K/uL Eos # (Auto) 0.19 0.22 (0.00-0.50) K/uL Baso # (Auto) 0.04 0.03 (0.00-0.20) K/uL Comprehensive Metabolic Panel 04/01/23 04/02/23 Range/Units 23:40 07:04 Sodium 137 143 (136-145) mmol/L Potassium 3.5 3.8 (3.5-5.1) mmol/L Chloride 106 112 H (98-107) mmol/L Carbon Dioxide 26 27 (21-32) mmol/L BUN 21 18 (6-23) mg/dl Creatinine 0.89 0.67 (0.6-1.2) mg/dl Glucose 298 H 135 H (70-99(Fasting)) mg/dl Calcium 9.1 9.2 (8.6-10.3) mg/dl AST 20 (13-39) U/L ALT 32 (7-52) U/L Alkaline Phosphatase 107 H (34-104) U/L Total Protein 6.4 (6.0-8.3) gm/dl Albumin 3.7 (3.4-5.0) gm/dl Intake and Output 04/02/23 04/02/23 04/02/23 06:59 14:59 22:59 Intake Total 60 / 60 Balance 60 / 60 Intake: Oral 60 / 60 Other: Other Intake Source NPO # Unmeasured Voids 2 Weight 93.2 kg Weight Measurement Method Standing Scale Diagnostic Findings CXR: 04/01/2023: Based on independent review No acute cardio-pulmonary process ECG: SB 58bpm SB 59bpm Echocardiogram: 04/02/2023 EF 55% no wall motion abnormality MAC Medications Administered Current Inpatient Medications Acetaminophen (Acetaminophen 325 Mg Tab) 650 mg PO Q4H PRN PRN Reason: Pain or Fever Stop: 05/02/23 03:23 Albuterol (Albut/Ipratrop 3mg/0.5mg Neb 3 Ml Vial) 3 ml INH QID PRN; Protocol PRN Reason: Shortness Of Breath Or Wheezing Stop: 05/02/23 03:23 Aspirin (Aspirin 81 Mg Ectab) 81 mg PO [facility] Stop: 05/02/23 08:59 Last Admin: 04/02/23 08:18 Dose: 81 mg Cyanocobalamin (Cyanocobalamin (B-12) 500 Mcg Tablet) [facility] Stop: 05/02/23 08:59 Last Admin: 04/02/23 08:19 Dose: 1,000 mcg Dextrose (Dextrose 50% 50 Ml Syringe) 25 - 50 ml IV UD PRN; Protocol PRN Reason: Hypoglycemia Protocol Stop: 05/02/23 03:23 Glucagon (Glucagon For Inj 1 Mg Vial) 1 mg SQ UD PRN; Protocol PRN Reason: Hypoglycemia Protocol Stop: 05/02/23 03:23 Glucose (Glucose 10 Tab/Tube) 4 - 8 tab PO UD PRN; Protocol PRN Reason: Hypoglycemia Treatment Stop: 05/02/23 03:23 Glucose (Glucose 40% Gel 15 Gm Tube) 15 - 30 gm PO UD PRN; Protocol PRN Reason: Hypoglycemia Protocol Stop: 05/02/23 03:23 Insulin Aspart (Insulin Aspart Per Unit Charge) 0 units SC [facility] Stop: 05/02/23 03:23 Insulin Glargine (Lantus Per Unit Charge) 10 units SQ DAILY [facility] Stop: 05/02/23 08:59 Last Admin: 04/02/23 08:57 Dose: Not Given Levothyroxine Sodium (Levothyroxine Sodium 125 Mcg Tablet) [facility] Stop: 05/02/23 06:29 Last Admin: 04/02/23 06:36 Dose: 125 mcg [place] Carbonate (L[place]ore Carbonate 300 Mg Tab) 150 mg PO QAM [facility] Stop: 05/02/23 08:59 Last Admin: 04/02/23 08:20 Dose: 150 mg [place] Carbonate ([place] Carbonate 450 Mg Tabcr) 450 [facility] Stop: 05/02/23 08:59 Last Admin: 04/02/23 08:19 Dose: 450 mg Meclizine HCl (Meclizine Hcl 25 Mg Tab) 25 mg PO TID PRN PRN Reason: Dizziness Stop: 05/02/23 03:23 Miscellaneous (Carbohydrates For Hypoglycemia ) 15 - 30 gm PO UD PRN PRN Reason: Hypoglycemia Protocol Stop: 05/02/23 03:23 Multivitamins/Minerals (Cerovite Adv Formula Tab) [facility] Stop: 05/02/23 08:59 Last Admin: 04/02/23 08:19 Dose: 1 tab Nitroglycerin (Nitroglycerin Sl 0.4 Mg/Tab Tab) 0.4 mg SL Q5M PRN PRN Reason: Chest Pain Stop: 05/02/23 03:23 Ondansetron HCl (Ondansetron Inj 2 Mg/Ml 2 Ml Vial) 4 mg IV Q6H PRN PRN Reason: Nausea Stop: 05/02/23 03:23 Pantoprazole Sodium (Pantoprazole 40 Mg Tab) [facility] Stop: 05/02/23 08:59 Last Admin: 04/02/23 08:19 Dose: 40 mg Polyethylene Glycol (Polyethylene (Miralax) 17 Gm Pack) 17 gm PO DAILY PRN PRN Reason: Constipation Stop: 05/02/23 03:23 Ropinirole HCl (Ropinirole Hcl 2 Mg Tablet) 2 mg PO HS [facility] Stop: 05/02/23 20:59 Ropinirole HCl (Ropinirole Hcl 0.25 Mg Tablet) 0.5 mg PO DAILY PRN PRN Reason: Restless Leg(S) Stop: 05/02/23 03:23 Rosuvastatin Calcium (Rosuvastatin Calcium 20 Mg Tab) [facility] Stop: 05/02/23 08:59 Last Admin: 04/02/23 08:20 Dose: 20 mg
[2023-04-02] MEDS ORDERED: Heparin IV Adult Wt-Based Standard *NO* INITIAL Bolus Protocol IV STA (16:52)
[2023-04-02 18:13] LABS: Basophils # (auto) 0.03 K/uL (0.00-0.20); Basophils % (auto) 0.6 %; Eosinophils # (auto) 0.16 K/uL (0.00-0.50); Hematocrit (blood only) 32.4 % (37.0-47.0); Hemoglobin 10.4 g/dl (12.0-16.0); Immature Granulocytes # (auto) 0.02 K/uL (0.01-0.20); Immature Granulocytes % (auto) 0.4 %; Lymphocytes # (auto) 1.96 K/uL (1.20-3.40); Lymphocytes % (auto) 36.2 %; Mean Corpuscular Hemoglobin 27.8 pg (25.0-34.0); Mean Corpuscular Hgb Conc 32.1 g/dL (32.0-36.0); Mean Corpuscular Volume 86.6 fL (80.0-100.0); Mean Platelet Volume 9.4 fL (9.4-12.4); Monocytes # (auto) 0.42 K/uL (0.11-0.59); Monocytes % (auto) 7.8 %; Neutrophils # (auto) 2.82 K/uL (1.40-6.50); Platelet Count 271 K/uL (130-400); RDW Coefficient of Variation 15.6 % (11.5-14.5); RDW Standard Deviation 48.9 fL (36.4-46.3); Red Blood Count 3.74 M/uL (4.20-5.40); White Blood Count 5.41 K/ul (4.8-10.8)
[2023-04-02 18:20] LABS: ANTI-Xa, UFH(UnfractionatedHep < 0.10 IU/ml (0.3-0.7); Partial Thromboplastin Ratio 0.9; Partial Thromboplastin Time 25 Seconds (21-31); Prothrombin Time 11.1 Seconds (9.0-12.0)
[2023-04-02] MEDS: rOPINIRole HCL 2 MG TABLET PO SCH ×2 (18:47→20:44)
[2023-04-02] MEDS: HEPARIN SODIUM/DEXTROSE 25,000 UNITS/500 ML BAG IV SCH (18:59)
[2023-04-03 02:00] LABS: ANTI-Xa, UFH(UnfractionatedHep 0.51 IU/ml (0.3-0.7)
[2023-04-03] MEDS: LEVOTHYROXINE SODIUM 125 MCG TABLET PO SCH (06:04)
[2023-04-03] MEDS: ACETAMINOPHEN 325 MG TAB PO PRN ×2 (06:04→20:13)
[2023-04-03 07:26] LABS: Estimated Average Glucose 174 mg/dl; Hemoglobin A1C 7.7 % (4.5-5.6)
[2023-04-03 07:30] LABS: Hematocrit (blood only) 30.7 % (37.0-47.0); Mean Corpuscular Hemoglobin 27.9 pg (25.0-34.0); Mean Corpuscular Hgb Conc 32.6 g/dL (32.0-36.0); Mean Corpuscular Volume 85.5 fL (80.0-100.0); Mean Platelet Volume 9.5 fL (9.4-12.4); Platelet Count 260 K/uL (130-400); RDW Coefficient of Variation 15.7 % (11.5-14.5); RDW Standard Deviation 49.1 fL (36.4-46.3); Red Blood Count 3.59 M/uL (4.20-5.40); White Blood Count 6.47 K/ul (4.8-10.8)
[2023-04-03 07:48] LABS: ANTI-Xa, UFH(UnfractionatedHep 0.58 IU/ml (0.3-0.7)
[2023-04-03 07:50] LABS: BUN Creatinine Ratio 24.6 (10-20); Calcium 9.2 mg/dl (8.6-10.3); Creatinine Clr Calc Pharmacy 105.5 ml/min; Est GFR (African American) 112.6 ml/min; Est GFR (Non-African American) 97.2 ml/min; Magnesium 1.8 mg/dl (1.7-2.4); Phosphorus 4.1 mg/dl (2.5-4.9); Potassium 3.9 mmol/L (3.5-5.1)
[2023-04-03] MEDS: LITHIUM CARBONATE 300 MG TAB PO SCH (08:35)
[2023-04-03] MEDS: LANTUS PER UNIT CHARGE SQ SCH ×2 (08:35→08:41)
[2023-04-03] MEDS: LITHIUM CARBONATE 450 MG TABCR PO SCH (08:35)
[2023-04-03] MEDS: INSULIN ASPART PER UNIT CHARGE SC SCH ×4 (08:35→20:28)
[2023-04-03] MEDS: ASPIRIN 81 MG ECTAB PO SCH (08:35)
[2023-04-03] MEDS: CYANOCOBALAMIN (B-12) 500 MCG TABLET PO SCH (08:35)
[2023-04-03] MEDS: CEROVITE ADV FORMULA TAB PO SCH (08:36)
[2023-04-03] MEDS: ROSUVASTATIN CALCIUM 20 MG TAB PO SCH (08:36)
[2023-04-03] MEDS: PANTOprazole 40 MG TAB PO SCH (08:36)
--- NOTE | 2023-04-03 09:40 | Cardiology Progress Note ---
Date of Service April 03, 2023 Assessment & Plan (1) NSTEMI (non-ST elevated myocardial infarction): Plan: Patient with symptoms highly suggestive of angina, no acute repolarization abnormalities on EKG, high-sensitivity troponin on presentation was elevated at 36.3 and trended up to 68.7 PG per mL consistent with non-STEMI. Patient with known intermediate lesion of the mid LAD visualized at time of cardiac catheterization in November, but was not felt to be hemodynamically significant by FFR assessment at that time. Recommend repeat coronary angiography for changes elsewhere, as well as reinvestigation of this intermediate LAD lesion which I suspect may be a culprit of her discomfort. Medication therapy: Continue aspirin, unfractionated heparin, rosuvastatin. Patient is not on a beta-jessica as she is bradycardic at baseline and she is a lso on lithium. (2) HTN (hypertension): Plan: Blood pressures currently well-controlled without antihypertensive agents. Continue to follow. (3) Hyperlipemia: Plan: Continue rosuvastatin 20 mg daily. Plan -Patient has been accepted in transfer to [facility] pending bed availability. Admission and Anticipated Discharge Date Admission Date: April 02, 2023 Subjective Patient seen in cardiology follow up of her chief complaint of chest discomfort. Pt feeling well. No recurrence of symptom overnight. Heparin infusing. Physical Exam Constitutional: WD/WN, vitals as above Eyes: PERRL, conjunctivae normal, anicteric sclerae Respiratory: normal respiratory effort, lungs clear to auscultation Cardiovascular: RRR, no murmur, no edema Gastrointestinal (Abdomen): normal bowel sounds, soft, nontender, no hepatosplenomegaly Neurologic: PERRL, EOMI, accommodation nl, no face palsy, no dysarthria Results & Data Vital Signs (Past 12 Hours) Vital Signs Temp Pulse Pulse Resp BP Pulse Ox Pulse Ox 04/03/23 08:06 36.3 C L 53 L 17 127/60 95 04/03/23 03:24 96 04/03/23 03:00 36.3 C L 57 L 20 111/57 L 95 04/02/23 23:47 68 24 96 04/02/23 22:48 36.7 C 52 L 16 124/74 96 04/02/23 21:45 55 L O2 Del Method O2 Del Method 04/03/23 08:06 Room Air 04/03/23 03:24 Room Air 04/03/23 03:00 Room Air 04/02/23 23:47 04/02/23 22:48 Room Air 04/02/23 21:45 Laboratory Results Cardiac Enzymes 04/02/23 04/02/23 Range/Units 13:01 19:10 Troponin I High Sens 68.7 H* 60.8 H* (0-14) pg/ml Coagulation 04/02/23 Range/Units 17:56 PT 11.1 (9.0-12.0) Seconds APTT 25 (21-31) Seconds CBC 04/02/23 04/03/23 Range/Units 17:56 06:52 WBC 5.41 6.47 (4.8-10.8) K/ul RBC 3.74 L 3.59 L (4.20-5.40) M/uL Hgb 10.4 L 10.0 L (12.0-16.0) g/dl Hct 32.4 L 30.7 L (37.0-47.0) % Plt Count 271 260 (130-400) K/uL Neut # (Auto) 2.82 (1.40-6.50) K/uL Lymph # (Auto) 1.96 (1.20-3.40) K/uL Kerr # (Auto) 0.42 (0.11-0.59) K/uL Eos # (Auto) 0.16 (0.00-0.50) K/uL Baso # (Auto) 0.03 (0.00-0.20) K/uL Comprehensive Metabolic Panel 04/03/23 Range/Units 06:52 Sodium 141 (136-145) mmol/L Potassium 3.9 (3.5-5.1) mmol/L Chloride 110 H (98-107) mmol/L Carbon Dioxide 27 (21-32) mmol/L BUN 16 (6-23) mg/dl Creatinine 0.65 (0.6-1.2) mg/dl Glucose 148 H (70-99(Fasting)) mg/dl Calcium 9.2 (8.6-10.3) mg/dl Diagnostic Findings Repeat EKG today 04/03/2023 and interpret independently: Sinus bradycardia at 51 bpm with occasional premature atrial contractions. No significant repolarization abnormalities. Echocardiogram performed 04/02/2023, normal LV wall motion, LVEF in the range of 55 to 60%, no significant valvular pathology. (2) HTN (hypertension) Hypertension type: primary hypertension Qualified Code(s): I10 - Essential (primary) hypertension
[2023-04-03] MEDS: HEPARIN SODIUM/DEXTROSE 25,000 UNITS/500 ML BAG IV SCH (12:53)
--- NOTE | 2023-04-03 16:31 | Electrocardiogram Report ---
Test Reason : Blood Pressure : / mmHG Vent. Rate : 051 BPM Atrial Rate : 051 BPM P-R Int : 172 ms QRS Dur : 082 ms QT Int : 464 ms P-R-T Axes : 073 034 043 degrees QTc Int : 427 ms Sinus bradycardia with occasional Premature ventricular complexes and Premature atrial complexes Otherwise normal ECG When compared with ECG of 02-APR-2023 06:11, Premature ventricular complexes are now Present Premature atrial complexes are now Present Confirmed by Moses Wong ([id number]) on 04/03/2023 4:30:45 PM Referred By: REFERRED SELF Confirmed By:Matt Wong
--- NOTE | 2023-04-03 16:48 | Hospitalist Progress Note ---
Date of Service April 03, 2023 Assessment & Plan (1) Chest pain: Plan: 58 yo F with diabetes, diabetic retinopathy, diabetic polyneuropathy, obstructive sleep apnea, mild persistent asthma, hiatal hernia, hypertension GERD, irritable bowel syndrome with constipation diarrhea, fibroid uterus, complex atypical endometrial hyperplasia, GERD osteoarthritis, restless leg syndrome, degenerative disc disease, iron deficiency anemia, bipolar 1 disorder, history of gastric bypass surgery, comes with chest pain. In the afternoon 2 PM she had chest pain but got resolved. But around 10 PM she had again chest pain 9/10 in severity radiating to the right jaw and took a nitro it seemed to help a little bit but the pain came back again and took another nitro which did not seem to help when she came to the ER. Currently pain is 3/10 in severity. Resting comfortably. Denies any shortness of breath. Patient states she was supposed to see GI for acid reflux. GI actually prescribed Carafate but she could not tolerate it. NSTEMI Chest pain History of nonocclusive coronary disease Patient had a cardiac cath in November 2022 showing mid LAD 50% stenosis, proximal mid left circumflex with 30% stenosis and mid RCA with 40% stenosis On medical management aspirin and statin Not on beta-jessica because of bradycardia initial EKG without ischemic changes Initial troponin mildly elevated - following troponin increased IV heparin Echo obtained -EF 55 to 60%. No dilated cardiac chambers. No significant valvular pathology. Close monitoring telemetry Cardiology consulted - recommend transfer to higher level center - as pt has hx of complex cardiac cath. Patient with symptoms having suggestive of angina. Patient with known intermediate lesion of the mid LAD visualized at time of cardiac catheterization in November, but was not felt to be hemodynamically significant by FFR assessment at that time. Recommend repeat coronary angiography for changes elsewhere, as well as reinvestigation of this intermediate LAD lesion which I suspect may be a culprit of her discomfort. Diabetes decreased long-acting insulins to 10 units as n.p.o. on admission Sliding scale Will monitor Obstructive sleep apnea CPAP nightly. Hyperlipidemia On statin Restless leg syndrome On ropinirole GERD History of gastric bypass Continue Protonix received 1 dose of IV Pepcid Bipolar 1 disorder On lithium lithium level 0.5 Hypothyroidism On Synthyroid Follow TSH Asthma Continue home nebs as needed DVT prophylaxis SCDs Disposition Observe in telemetry Full code Admission and Anticipated Discharge Date Admission Date: April 02, 2023 Subjective Pt seen in follow up of chest pain, NSTEMI On IV heparin Currently sitting up in bed in NAD, without any chest pain at this time No fevers chills chest pain shortness of breath Family present at the bedside Patient awaiting transfer Review of Systems Review of Systems: All systems reviewed & are unremarkable except as noted in Subjective Physical Exam Physical Exam: General- WD/WN F in NAD Head- atraumatic Eyes- PERRL. ENT- oropharynx clear Neck- supple, no JVD. Lungs- clear to auscultation no wheezing or crackles. Heart- regular rhythm; no murmur, no gallop. Abdomen- normal bowel sounds, soft, nontender, no distension. Extremities- no pretibial edema, no erythema seen. Neuro- alert, oriented x 3; PERRL, no facial palsy; no dysarthria; answers appropriately, moves extremities. Skin- warm & dry Results & Data Results & Data Vital Signs (Past 12 Hours) Vital Signs Temp Pulse Resp BP Pulse Ox O2 Del Method 04/03/23 15:40 36.6 C 56 L 17 137/82 98 Room Air 04/03/23 11:40 36.6 C 55 L 17 133/77 97 Room Air 04/03/23 08:06 36.3 C L 53 L 17 127/60 95 Room Air Laboratory Results 04/03/23 04/03/23 04/03/23 Range/Units 11:48 08:45 07:46 WBC (4.8-10.8) K/ul RBC (4.20-5.40) M/uL Hgb (12.0-16.0) g/dl Hct (37.0-47.0) % MCV (80.0-100.0) fL MCH (25.0-34.0) pg MCHC (32.0-36.0) g/dL RDW Std Deviation (36.4-46.3) fL RDW Coeff of Gee (11.5-14.5) % Plt Count (130-400) K/uL MPV (9.4-12.4) fL Immature Gran % (Auto) % Neut % (Auto) % Lymph % (Auto) % [place] % (Auto) % Eos % (Auto) % Baso % (Auto) % Neut # (Auto) (1.40-6.50) K/uL Lymph # (Auto) (1.20-3.40) K/uL [place] # (Auto) (0.11-0.59) K/uL Eos # (Auto) (0.00-0.50) K/uL Baso # (Auto) (0.00-0.20) K/uL Immature Gran # (Auto) (0.01-0.20) K/uL PT (9.0-12.0) Seconds INR (0.9-1.1) APTT (21-31) Seconds PTT Ratio Heparin Anti-Xa, Unfract (0.3-0.7) IU/ml Sodium (136-145) mmol/L Potassium (3.5-5.1) mmol/L Chloride (98-107) mmol/L Carbon Dioxide (21-32) mmol/L Anion Gap (3-11) BUN (6-23) mg/dl Creatinine (0.6-1.2) mg/dl Est Cr Clr Drug Dosing ml/min Est GFR ( Amer) ml/min Est GFR (Non-Af Amer) ml/min BUN/Creatinine Ratio (10-20) Glucose (70-99(Fasting)) mg/dl POC Glucose 143 H 160 H (70-99) mg/dl Estimat Average Glucose mg/dl Hemoglobin A1c (4.5-5.6) % Calcium (8.6-10.3) mg/dl Phosphorus (2.5-4.9) mg/dl Magnesium (1.7-2.4) mg/dl Troponin I High Sens (0-14) pg/ml SARS-CoV-2, RNA, NAAT NEGATIVE (NEGATIVE) 04/03/23 04/03/23 04/02/23 Range/Units 06:52 00:55 20:03 WBC 6.47 (4.8-10.8) K/ul RBC 3.59 L (4.20-5.40) M/uL Hgb 10.0 L (12.0-16.0) g/dl Hct 30.7 L (37.0-47.0) % MCV 85.5 (80.0-100.0) fL MCH 27.9 (25.0-34.0) pg MCHC 32.6 (32.0-36.0) g/dL RDW Std Deviation 49.1 H (36.4-46.3) fL RDW Coeff of Gee 15.7 H (11.5-14.5) % Plt Count 260 (130-400) K/uL MPV 9.5 (9.4-12.4) fL Immature Gran % (Auto) % Neut % (Auto) % Lymph % (Auto) % [place] % (Auto) % Eos % (Auto) % Baso % (Auto) % Neut # (Auto) (1.40-6.50) K/uL Lymph # (Auto) (1.20-3.40) K/uL [place] # (Auto) (0.11-0.59) K/uL Eos # (Auto) (0.00-0.50) K/uL Baso # (Auto) (0.00-0.20) K/uL Immature Gran # (Auto) (0.01-0.20) K/uL PT (9.0-12.0) Seconds INR (0.9-1.1) APTT (21-31) Seconds PTT Ratio Heparin Anti-Xa, Unfract 0.58 0.51 (0.3-0.7) IU/ml Sodium 141 (136-145) mmol/L Potassium 3.9 (3.5-5.1) mmol/L Chloride 110 H (98-107) mmol/L Carbon Dioxide 27 (21-32) mmol/L Anion Gap 4 (3-11) BUN 16 (6-23) mg/dl Creatinine 0.65 (0.6-1.2) mg/dl Est Cr Clr Drug Dosing 105.5 ml/min Est GFR ( Amer) 112.6 ml/min Est GFR (Non-Af Amer) 97.2 ml/min BUN/Creatinine Ratio 24.6 H (10-20) Glucose 148 H (70-99(Fasting)) mg/dl POC Glucose 238 H (70-99) mg/dl Estimat Average Glucose mg/dl Hemoglobin A1c (4.5-5.6) % Calcium 9.2 (8.6-10.3) mg/dl Phosphorus 4.1 (2.5-4.9) mg/dl Magnesium 1.8 (1.7-2.4) mg/dl Troponin I High Sens (0-14) pg/ml SARS-CoV-2, RNA, NAAT (NEGATIVE) 04/02/23 04/02/23 04/02/23 Range/Units 19:10 17:56 07:04 WBC 5.41 (4.8-10.8) K/ul RBC 3.74 L (4.20-5.40) M/uL Hgb 10.4 L (12.0-16.0) g/dl Hct 32.4 L (37.0-47.0) % MCV 86.6 (80.0-100.0) fL MCH 27.8 (25.0-34.0) pg MCHC 32.1 (32.0-36.0) g/dL RDW Std Deviation 48.9 H (36.4-46.3) fL RDW Coeff of Gee 15.6 H (11.5-14.5) % Plt Count 271 (130-400) K/uL MPV 9.4 (9.4-12.4) fL Immature Gran % (Auto) 0.4 % Neut % (Auto) 52.0 % Lymph % (Auto) 36.2 % [place] % (Auto) 7.8 % Eos % (Auto) 3.0 % Baso % (Auto) 0.6 % Neut # (Auto) 2.82 (1.40-6.50) K/uL Lymph # (Auto) 1.96 (1.20-3.40) K/uL [place] # (Auto) 0.42 (0.11-0.59) K/uL Eos # (Auto) 0.16 (0.00-0.50) K/uL Baso # (Auto) 0.03 (0.00-0.20) K/uL Immature Gran # (Auto) 0.02 (0.01-0.20) K/uL PT 11.1 (9.0-12.0) Seconds INR 1.0 (0.9-1.1) APTT 25 (21-31) Seconds PTT Ratio 0.9 Heparin Anti-Xa, Unfract < 0.10 L (0.3-0.7) IU/ml Sodium (136-145) mmol/L Potassium (3.5-5.1) mmol/L Chloride (98-107) mmol/L Carbon Dioxide (21-32) mmol/L Anion Gap (3-11) BUN (6-23) mg/dl Creatinine (0.6-1.2) mg/dl Est Cr Clr Drug Dosing ml/min Est GFR ( Amer) ml/min Est GFR (Non-Af Amer) ml/min BUN/Creatinine Ratio (10-20) Glucose (70-99(Fasting)) mg/dl POC Glucose (70-99) mg/dl Estimat Average Glucose 174 mg/dl Hemoglobin A1c 7.7 H (4.5-5.6) % Calcium (8.6-10.3) mg/dl Phosphorus (2.5-4.9) mg/dl Magnesium (1.7-2.4) mg/dl Troponin I High Sens 60.8 H* (0-14) pg/ml SARS-CoV-2, RNA, NAAT (NEGATIVE) Medications Administered Current Inpatient Medications Acetaminophen (Acetaminophen 325 Mg Tab) 650 mg PO Q4H PRN PRN Reason: Pain or Fever Stop: 05/02/23 03:23 Last Admin: 04/03/23 06:04 Dose: 650 mg Albuterol (Albut/Ipratrop 3mg/0.5mg Neb 3 Ml Vial) 3 ml INH QID PRN; Protocol PRN Reason: Shortness Of Breath Or Wheezing Stop: 05/02/23 03:23 Aspirin (Aspirin 81 Mg Ectab) 81 mg PO [facility] Stop: 05/02/23 08:59 Last Admin: 04/03/23 08:35 Dose: 81 mg Cyanocobalamin (Cyanocobalamin (B-12) 500 Mcg Tablet) 1,000 mcg PO [facility] Stop: 05/02/23 08:59 Last Admin: 04/03/23 08:35 Dose: 1,000 mcg Dextrose (Dextrose 50% 50 Ml Syringe) 25 - 50 ml IV UD PRN; Protocol PRN Reason: Hypoglycemia Protocol Stop: 05/02/23 03:23 Glucagon (Glucagon For Inj 1 Mg Vial) 1 mg SQ UD PRN; Protocol PRN Reason: Hypoglycemia Protocol Stop: 05/02/23 03:23 Glucose (Glucose 10 Tab/Tube) 4 - 8 tab PO UD PRN; Protocol PRN Reason: Hypoglycemia Treatment Stop: 05/02/23 03:23 Glucose (Glucose 40% Gel 15 Gm Tube) 15 - 30 gm PO UD PRN; Protocol PRN Reason: Hypoglycemia Protocol Stop: 05/02/23 03:23 Heparin Sodium/Dextrose (Heparin Sodium/Dextrose) 25,000 units in 500 mls @ 26 mls/hr IV .[id number] [facility]; Protocol Stop: 05/02/23 17:44 Last Admin: 04/03/23 12:53 Dose: 1,300 units/hr, 26 mls/hr Insulin Aspart (Insulin Aspart Per Unit Charge) 0 units SC ACHS [facility] Stop: 05/02/23 03:23 Last Admin: 04/03/23 12:52 Dose: 5 units Insulin Glargine (Lantus Per Unit Charge) 10 units SQ DAILY [facility] Stop: 05/02/23 08:59 Last Admin: 04/03/23 08:41 Dose: Not Given Levothyroxine Sodium (Levothyroxine Sodium 125 Mcg Tablet) 125 mcg PO DAILYBB [facility] Stop: 05/02/23 06:29 Last Admin: 04/03/23 06:04 Dose: 125 mcg [place] Carbonate ([place] Carbonate 300 Mg Tab) [facility] Stop: 05/02/23 08:59 Last Admin: 04/03/23 08:35 Dose: 150 mg [place] Carbonate ([place] Carbonate 450 Mg Tabcr) 450 [facility] Stop: 05/02/23 08:59 Last Admin: 04/03/23 08:35 Dose: 450 mg Meclizine HCl (Meclizine Hcl 25 Mg Tab) 25 mg PO TID PRN PRN Reason: Dizziness Stop: 05/02/23 03:23 Miscellaneous (Carbohydrates For Hypoglycemia ) 15 - 30 gm PO UD PRN PRN Reason: Hypoglycemia Protocol Stop: 05/02/23 03:23 Multivitamins/Minerals (Cerovite Adv Formula Tab) 1 tab PO QAM [facility] Stop: 05/02/23 08:59 Last Admin: 04/03/23 08:36 Dose: 1 tab Nitroglycerin (Nitroglycerin Sl 0.4 Mg/Tab Tab) 0.4 mg SL Q5M PRN PRN Reason: Chest Pain Stop: 05/02/23 03:23 Ondansetron HCl (Ondansetron Inj 2 Mg/Ml 2 Ml Vial) 4 mg IV Q6H PRN PRN Reason: Nausea Stop: 05/02/23 03:23 Pantoprazole Sodium (Pantoprazole 40 Mg Tab) [facility] Stop: 05/02/23 08:59 Last Admin: 04/03/23 08:36 Dose: 40 mg Polyethylene Glycol (Polyethylene (Miralax) 17 Gm Pack) 17 gm PO DAILY PRN PRN Reason: Constipation Stop: 05/02/23 03:23 Ropinirole HCl (Ropinirole Hcl 2 Mg Tablet) 2 mg PO [facility] Stop: 05/02/23 20:59 Last Admin: 04/02/23 20:44 Dose: Not Given Ropinirole HCl (Ropinirole Hcl 0.25 Mg Tablet) 0.5 mg PO DAILY PRN PRN Reason: Restless Leg(S) Stop: 05/02/23 03:23 Rosuvastatin Calcium (Rosuvastatin Calcium 20 Mg Tab) 20 [facility] Stop: 05/02/23 08:59 Last Admin: 04/03/23 08:36 Dose: 20 mg
[2023-04-03] MEDS: rOPINIRole HCL 2 MG TABLET PO SCH (20:14)
[2023-04-04] MEDS: LEVOTHYROXINE SODIUM 125 MCG TABLET PO SCH (05:49)
[2023-04-04 06:21] LABS: Hematocrit (blood only) 30.2 % (37.0-47.0); Hemoglobin 9.9 g/dl (12.0-16.0); Mean Corpuscular Hemoglobin 28.2 pg (25.0-34.0); Mean Corpuscular Hgb Conc 32.8 g/dL (32.0-36.0); Mean Platelet Volume 9.6 fL (9.4-12.4); Platelet Count 263 K/uL (130-400); RDW Coefficient of Variation 15.9 % (11.5-14.5); RDW Standard Deviation 49.7 fL (36.4-46.3); Red Blood Count 3.51 M/uL (4.20-5.40); White Blood Count 6.79 K/ul (4.8-10.8)
[2023-04-04 06:42] LABS: BUN Creatinine Ratio 24.1 (10-20); Calcium 9.4 mg/dl (8.6-10.3); Creatinine Clr Calc Pharmacy 82.6 ml/min; Est GFR (African American) 89.5 ml/min; Est GFR (Non-African American) 77.2 ml/min; Magnesium 1.9 mg/dl (1.7-2.4); Phosphorus 4.7 mg/dl (2.5-4.9); Potassium 4.1 mmol/L (3.5-5.1)
[2023-04-04 06:56] LABS: ANTI-Xa, UFH(UnfractionatedHep 0.78 IU/ml (0.3-0.7)
[2023-04-04] MEDS: HEPARIN SODIUM/DEXTROSE 25,000 UNITS/500 ML BAG IV SCH (07:07)
[2023-04-04] MEDS: INSULIN ASPART PER UNIT CHARGE SC SCH ×2 (09:14→11:47)
[2023-04-04] MEDS: CYANOCOBALAMIN (B-12) 500 MCG TABLET PO SCH (09:15)
[2023-04-04] MEDS: CEROVITE ADV FORMULA TAB PO SCH (09:15)
[2023-04-04] MEDS: PANTOprazole 40 MG TAB PO SCH (09:15)
[2023-04-04] MEDS: ASPIRIN 81 MG ECTAB PO SCH (09:15)
[2023-04-04] MEDS: ROSUVASTATIN CALCIUM 20 MG TAB PO SCH (09:15)
[2023-04-04] MEDS: LITHIUM CARBONATE 450 MG TABCR PO SCH (09:15)
[2023-04-04] MEDS: LITHIUM CARBONATE 300 MG TAB PO SCH (09:16)
[2023-04-04] MEDS: LANTUS PER UNIT CHARGE SQ SCH (09:19)
--- NOTE | 2023-04-04 10:32 | Cardiology Progress Note ---
Date of Service April 04, 2023 Assessment & Plan (1) NSTEMI (non-ST elevated myocardial infarction): Plan: Patient with symptoms highly suggestive of angina, no acute repolarization abnormalities on EKG, high-sensitivity troponin on presentation was elevated at 36.3 and trended up to 68.7 PG per mL consistent with non-STEMI. Patient with known intermediate lesion of the mid LAD visualized at time of cardiac catheterization in November, but was not felt to be hemodynamically significant by FFR assessment at that time. Recommend repeat coronary angiography for changes elsewhere, as well as reinvestigation of this intermediate LAD lesion which I suspect may be a culprit of her discomfort. Medication therapy: Continue aspirin, unfractionated heparin, rosuvastatin. Patient is not on a beta-jessica as she is bradycardic at baseline and she is a lso on lithium. (2) HTN (hypertension): Plan: Blood pressures currently well-controlled without antihypertensive agents. Continue to follow. (3) Hyperlipemia: Plan: Continue rosuvastatin 20 mg daily. Plan -Patient has been accepted in transfer to [facility] pending bed availability. -Due complex history recommend coronary angiography be performed at tertiary center, with ability to compare to prior procedure. -Her jaw pain does not sound like it is characteristic of angina. Proceed with Tylenol. -I spoke the accepting cardiology provider , Dr Kimble, by phone and provided updates for the purpose of coordination of care. Admission and Anticipated Discharge Date Admission Date: April 02, 2023 Subjective Pt seen in follow up of chest pain, NSTEMI. Patient complained to nursing about jaw pain this am. Repeat EKG reveals SB at 55, no new repolarization changes. Pt comfortable at my assessment. Describes jaw / ear pain since brief trial of CPAP. Telemetry reveals SR in the 50s with occasional PACs , PVCs. Physical Exam Constitutional: WD/WN, vitals as above Eyes: PERRL, conjunctivae normal, anicteric sclerae Respiratory: normal respiratory effort, lungs clear to auscultation Cardiovascular: RRR, no murmur, no edema Gastrointestinal (Abdomen): normal bowel sounds, soft, nontender, no hepatosplenomegaly Neurologic: PERRL, EOMI, accommodation nl, no face palsy, no dysarthria Results & Data Vital Signs (Past 12 Hours) Vital Signs Temp Pulse Resp BP BP Pulse Ox O2 Del Method 04/04/23 07:54 36.4 C L 52 L 14 123/57 L 96 Room Air 04/04/23 03:20 36.4 C L 53 L 16 129/62 96 Room Air 04/03/23 22:52 36.6 C 62 17 122/55 L 95 Room Air Laboratory Results CBC 04/04/23 Range/Units 05:39 WBC 6.79 (4.8-10.8) K/ul RBC 3.51 L (4.20-5.40) M/uL Hgb 9.9 L (12.0-16.0) g/dl Hct 30.2 L (37.0-47.0) % Plt Count 263 (130-400) K/uL Comprehensive Metabolic Panel 04/04/23 Range/Units 05:39 Sodium 140 (136-145) mmol/L Potassium 4.1 (3.5-5.1) mmol/L Chloride 109 H (98-107) mmol/L Carbon Dioxide 29 (21-32) mmol/L BUN 20 (6-23) mg/dl Creatinine 0.83 (0.6-1.2) mg/dl Glucose 117 H (70-99(Fasting)) mg/dl Calcium 9.4 (8.6-10.3) mg/dl Intake and Output 04/03/23 04/04/23 04/04/23 22:59 06:59 14:59 Intake Total 682.5 / 1422.5 551.567 / 551.567 Output Total Balance 681.5 / 1421.5 551.567 / 551.567 Intake: IV 162.5 / 662.5 311.567 / 311.567 Heparin Sodium/Dextrose 25,000 162.5 / 662.5 311.567 / 311.567 units In 500 ml @ 1,250 UNITS/ HR 25 mls/hr IV .Q20H [facility] Rx#: [id number] Oral 520 / 760 240 / 240 Output: # Bowel Movements Other: # Unmeasured Voids 1 Weight 93.7 kg (2) HTN (hypertension) Hypertension type: primary hypertension Qualified Code(s): I10 - Essential (primary) hypertension
--- NOTE | 2023-04-04 12:22 | Electrocardiogram Report ---
Test Reason : Blood Pressure : / mmHG Vent. Rate : 053 BPM Atrial Rate : 053 BPM P-R Int : 174 ms QRS Dur : 086 ms QT Int : 466 ms P-R-T Axes : 061 013 058 degrees QTc Int : 437 ms Sinus bradycardia Nonspecific T wave abnormality Abnormal ECG When compared with ECG of 03-APR-2023 06:09, Premature ventricular complexes are no longer Present Premature atrial complexes are no longer Present Confirmed by Moses Wong ([id number]) on 04/04/2023 12:22:01 PM Referred By: REFERRED SELF Confirmed By:Matt Wong
--- NOTE | 2023-04-04 12:25 | Electrocardiogram Report ---
Test Reason : Blood Pressure : / mmHG Vent. Rate : 055 BPM Atrial Rate : 055 BPM P-R Int : 172 ms QRS Dur : 084 ms QT Int : 452 ms P-R-T Axes : 060 008 054 degrees QTc Int : 432 ms Sinus bradycardia Otherwise normal ECG When compared with ECG of 04-APR-2023 06:11, (unconfirmed) No significant change was found Confirmed by Moses Wong ([id number] on 04/04/2023 12:25:08 PM Referred By: REFERRED SELF Confirmed By:Matt Wong
--- NOTE | 2023-04-04 13:09 | Discharge Summary ---
Date of Service April 04, 2023 Admission HPI Per Admitting Provider 58-year-old female with past med history significant for diabetes, diabetic retinopathy, diabetic polyneuropathy, obstructive sleep apnea, mild persistent asthma, hiatal hernia, hypertension GERD, irritable bowel syndrome with constipation diarrhea, fibroid uterus, complex atypical endometrial hyperplasia, GERD osteoarthritis, restless leg syndrome, degenerative disc disease, iron deficiency anemia, bipolar 1 disorder, history of gastric bypass surgery, comes with chest pain. Yesterday afternoon 2 PM she had chest pain but got resolved. But around 10 PM she had again chest pain 9/10 in severity radiating to the right jaw and took a nitro it seemed to help a little bit but the pain came back again and took another nitro which did not seem to help when she came to the ER. Currently pain is 3/10 in severity. Resting comfortably. Denies any shortness of breath. No nausea. No sweating. No dizziness. No headaches. Some runny nose and cough for last few days. No blurred vision. No earaches. No abdominal pain. Normal bladder movements. Prior to this episode she was ambulating and climbing steps okay. Patient states she was supposed to see GI for acid reflux. GI actually prescribed Carafate but she could not tolerate it. Past medical history. As mentioned above Past surgical history bilateral knee arthroplasty, colonoscopy, cardiac cath, dilatation curettage, EGD, IUD, laparoscopic gastric bypass Procedure and liver. Laparoscopic cholecystectomy. Laparoscopic paraesophageal hernia repair. Laparoscopic transection of vagus nerves. Social history. . No smoking. No alcohol use. No drug use. Family history. Father had diabetes, esophageal cancer, heart disorder. Mother had bladder cancer. Diabetes. CHF. Hypertension. Maternal grandmother had ovarian cancer. Brother has COPD. Brother has esophageal cancer. Heart disorder. Admission Exam Per Admitting Provider General-not in distress Head- atraumatic Eyes- PERRL. ENT- oropharynx clear Neck- supple, no JVD. Lungs- clear to auscultation no wheezing or crackles. Heart- regular rhythm; no murmur, no gallop. Abdomen- normal bowel sounds, soft, nontender, no distension. Extremities- no pretibial edema, no erythema seen. Neuro- alert, oriented x 3; PERRL,no facial palsy; no dysarthria; moves extremities. Skin- warm & dry Principal Diagnosis NSTEMI, hx of complex cardiac cath Discharge Exam General- WD/WN F in NAD Head- atraumatic Eyes- PERRL. ENT- oropharynx clear Neck- supple, no JVD. Lungs- clear to auscultation no wheezing or crackles. Heart- regular rhythm; no murmur, no gallop. Abdomen- normal bowel sounds, soft, nontender, no distension. Extremities- no pretibial edema, no erythema seen. Neuro- alert, oriented x 3; PERRL, no facial palsy; no dysarthria; answers appropriately, moves extremities. Skin- warm & dry Discharge Data Allergies Allergy/AdvReac Type Severity Reaction Status Date / Time bee venom protein (honey bee) Allergy Severe HIVES AND Verified 04/02/23 02:02 DIFFICULTY BREATHING sucralfate Allergy Severe numbness Verified 04/02/23 02:02 face,lips tongue Cipro Allergy Intermediate heart Verified 10/25/17 08:29 palpatations ciprofloxacin Allergy Intermediate heart Verified 04/02/23 02:02 palpatations clarithromycin Allergy Intermediate NAUSEA AND Verified 04/02/23 02:02 DELUSIONAL clindamycin Allergy Intermediate "FELT LIKE Verified 04/02/23 02:02 MY HEAD EXPLODE" doxepin Allergy Intermediate BURNING TO Verified 04/02/23 02:02 APPLICATION SITE AND JITTERINESS doxycycline Allergy Intermediate ALTERED Verified 04/02/23 02:02 MENTAL STATUS oxycodone Allergy Intermediate HALLUCINATI Verified 04/02/23 02:02 ONS quetiapine Allergy Intermediate HALLUCINATIONS, Verified 04/02/23 02:02 JITTERYNESS valproic acid Allergy Intermediate "LOOSE Verified 04/02/23 02:02 MIND" Penicillins Allergy Unknown Unknown- Verified 04/02/23 02:02 A CHILD gabapentin AdvReac Intermediate Extremely Verified 04/02/23 02:02 tired hydroxyzine AdvReac Intermediate Slept for Verified 04/02/23 02:02 days indomethacin AdvReac Intermediate "SPACED Verified 04/02/23 02:02 OUT" Macrolide Antibiotics AdvReac Intermediate HEADACHE Verified 04/02/23 02:02 AND NAUSEA ranitidine AdvReac Intermediate Slept for Verified 04/02/23 02:02 days alprazolam AdvReac Mild JITTERY Verified 04/02/23 02:02 erythromycin base AdvReac Mild NAUSEA Verified 04/02/23 02:02 Sulfa (Sulfonamide AdvReac Mild UPSET Verified 04/02/23 02:02 Antibiotics) STOMACH Consultations 04/02/23 01:06 ED Decision to Admit Stat 04/02/23 08:00 Consult Cardiology Routine 04/04/23 12:36 Radiology Transfer Of Images Stat Hospital Course (1) Chest pain: 58 yo F with diabetes, diabetic retinopathy, diabetic polyneuropathy, obstructive sleep apnea, mild persistent asthma, hiatal hernia, hypertension GERD, irritable bowel syndrome with constipation diarrhea, fibroid uterus, complex atypical endometrial hyperplasia, GERD osteoarthritis, restless leg syndrome, degenerative disc disease, iron deficiency anemia, bipolar 1 disorder, history of gastric bypass surgery, comes with chest pain. In the afternoon 2 PM she had chest pain but got resolved. But around 10 PM she had again chest pain 9/10 in severity radiating to the right jaw and took a nitro it seemed to help a little bit but the pain came back again and took another nitro which did not seem to help when she came to the ER. Currently pain is 3/10 in severity. Resting comfortably. Denies any shortness of breath. Patient states she was supposed to see GI for acid reflux. GI actually prescribed Carafate but she could not tolerate it. NSTEMI Chest pain History of nonocclusive coronary disease Patient had a cardiac cath in November 2022 showing mid LAD 50% stenosis, proximal mid left circumflex with 30% stenosis and mid RCA with 40% stenosis On medical management aspirin and statin Not on beta-jessica because of bradycardia initial EKG without ischemic changes Initial troponin mildly elevated - following troponin increased in 60s IV heparin Echo obtained -EF 55 to 60%. No dilated cardiac chambers. No significant valvular pathology. Close monitoring telemetry Cardiology consulted - recommend transfer to higher level center - as pt has hx of complex cardiac cath. Patient with symptoms having suggestive of angina. Patient with known intermediate lesion of the mid LAD visualized at time of cardiac catheterization in November, but was not felt to be hemodynamically significant by FFR assessment at that time. Recommend repeat coronary angiography for changes elsewhere, as well as reinvestigation of this intermediate LAD lesion which I suspect may be a culprit of her discomfort. Diabetes hold home meds Sliding scale Will monitor Obstructive sleep apnea CPAP nightly. Hyperlipidemia On statin Restless leg syndrome On ropinirole GERD History of gastric bypass Continue Protonix received 1 dose of IV Pepcid Bipolar 1 disorder On lithium lithium level 0.5 Hypothyroidism On Synthyroid Follow TSH Asthma Continue home nebs as needed Total Time Total Time Spent Total Time Spent (In Minutes): 40 Discharge Plan Discharge Items Patient Disposition: Transfer Acute Care Hospital Reason For Visit: CHEST PAIN, MILD ELEVATED TROPONIN Discharge Diagnosis: NSTEMI, hx of complex cardiac cath Activity: Per Instructions section Non-emergency contact: Bilingual Sales Assistant Call non-emergency contact if: you have any medication questions and your symptoms worsen Follow-up/Referrals: Teodoro Galaviz DO [Primary Care Provider] - Diet: Carb Consistent or DM2 and Heart Healthy Addtl Attending Provider Instructions: Patient present with chest pain and elevated troponin, history of complex cardiac cath in the past. It is recommended that the patient is transferred to higher level care hospital for cardiac cath and possible intravascular ultras ound of her LAD lesion. Patient was accepted at the [facility]. Patient is currently on IV heparin for NSTEMI. Pending Studies at Discharge: No Stand-Alone Forms: [facility] Skilled Items Patient informed of condition?: Yes DNR: No Discharge Level of Care: Other Communicable Disease: No Discharge Prognosis: Other Lines: Peripheral IV Urinary Catheter: No Medications and DC Order Prescriptions: Continued cyanocobalamin (vitamin B-12) [Vitamin B-12] 1,000 mcg Tablet 1,000 mcg PO QAM ropinirole 1 mg Tablet 2 mg PO HS ipratropium-albuterol 0.5 mg-3 mg(2.5 mg base)/3 mL solution for nebulization 3 ml INHALATION QID PRN (Reason: Shortness Of Breath Or Wheezing) ropinirole 0.5 mg Tablet 0.5 mg PO DAILY PRN (Reason: Restless Leg(S)) Multivitamin Gummies 200 mcg Tablet,Chewable 2 tab PO QAM lithium carbonate 150 mg capsule 150 mg PO QAM lithium carbonate 450 mg tablet extended release 450 mg PO QAM insulin degludec [Tresiba FlexTouch U-100] 100 unit/mL (3 mL) insulin pen 20 unit SUBCUT QAM Mounjaro 2.5 mg/0.5 mL pen injector 2.5 mg SUBCUT WK Rx Instructions: saturdays meclizine 25 mg tablet 25 mg PO TID PRN (Reason: Dizziness) rosuvastatin 20 mg tablet 20 mg PO QAM levothyroxine 125 mcg tablet 125 mcg PO DAILYBB pantoprazole 40 mg tablet,delayed release (DR/EC) 40 mg PO QAM nitroglycerin 0.4 mg tablet, sublingual 0.4 mg sublingual UD PRN (Reason: Chest Pain) insulin aspart U-100 [Novolog FlexPen U-100 Insulin] 100 unit/mL (3 mL) insulin pen 10 unit SUBCUT WM aspirin [Aspirin Low-Strength] 81 mg Tablet,Delayed Release (Dr/Ec) 81 mg PO QAM Discharge Orders: Discharge Order (Routine); Ordered 04/04/23 Ordered By: Jensen Theodore Admission Data Admit Date/Time: 04/02/23 02:27 Attending Provider: Jensen Theodore Admit Provider: Randy Arvizu Primary Care Provider: Teodoro Galaviz Other Providers: Randy Arvizu; Dianna Philip; Douglas Jamil; Luis Enrique Andrews; Pantera Garcia; Adonis Ortiz; Toribio Villa; Aurora Hair; Bibiana Silveira; Dianna Alcala; Micah Leonardo; Aram Melendez; Jessica Baer; Mone Mcgovern; Saskia Ziegler; Selvin Rivera
== END 2023-04-04 14:00 | disposition short-term general hospital (02) ==
LOC: ED 23:24 → 4W 23:24 → 2S 04-03 18:47

== ENCOUNTER 2024-09-23 22:48 | Observation (INO) ==
--- NOTE | 2024-09-23 23:29 | Emergency Department Note ---
Impression & Plan Food impaction of esophagus, Atypical chest pain Admit to the [facility] ED Provider Note NAME: ALDO LINTON AGE: 59 SEX: Female INFORMANT: Patient ED PROVIDER(S): Kristin Parker DO CHIEF COMPLAINT: Back pain and right arm pain PLAN: Disposition: Admit to the [facility] MEDICAL DECISION MAKING: This is a 59-year-old female patient presents to the emergency department with a sudden onset of right-sided chest discomfort around 7 PM this evening with associated nausea and then vomiting. This occurred after eating dinner which consisted of pork chops and sweet potatoes. She also describes having some chills and right arm pain at the same time. She thought this was GI in origin and that the vomiting would improve her symptoms but it did not. The patient does have a cardiac history with previous CA and stent placement 18 months ago. Patient took nitroglycerin as the chest discomfort persisted and this caused vomiting again which did seem to relieve what she describes as gas pain in her chest but then the discomfort in the chest returned along with worsening right arm pain. Patient then proceeded to the hospital. On arrival, she had another large emesis in the car and developed significant pain between her shoulder blades that she rates as an 8/10. I did review medical records in the [facility] [employer] Interactive system. She suffered an CA in March 2023 and underwent cardiac cath with stent placement to the left circumflex. She had residual 50% blockage of the LAD and 40% blockage of the RCA. Patient underwent CTA of the chest here to evaluate her aorta because of the tearing sensation that she describes in her chest through to her back. I also wanted to evaluate her esophagus because of the significant retching/vomiting that she had. This revealed no extravasation of contrast outside the esophagus but there was a significant distal esophageal food impaction. Clinically, the patient continued to have episodes of retching and vomiting. She tried to drink clear liquids here in the ER and would produce small amounts of undigested food. I discussed the case with [facility] gastroenterology-Dr. Dahs and he recommended that I discussed the case with the on-call manager materials management here at [facility]. I spoke with Dr. Riley who was willing to see the patient if they were admitted to the hospital this morning. I spoke with the [facility] Hospitalist who will evaluate the patient for further inpatient care. The patient will be kept n.p.o. and placed on IV fluids Care/management discussed with: [facility] gastroenterology-Dr. Dash; [place] gastroenterology-Dr. Riley; [facility] hospitalist-Dr. Love Triage Nursing notes: reviewed and agree with them. Vital Signs: reviewed and remarkable for bradycardia and mild hypertension Chronic Medical/Social Conditions affecting care: Gastric bypass surgery 5 years ago in [place]; coronary artery disease 18 months ago with drug-eluting stent placement in the left circumflex Prior/ Outside/ External records reviewed: I reviewed records in the [facility] [employer] Interactive system Differential Diagnosis: Cardiac ischemia, STEMI, NSTEMI, aortic dissection, GERD, esophageal tear, esophageal food bolus/impaction Diagnostics, independently interpreted by me: ECG: Sinus bradycardia at a rate of [address] segment ovation or signs of ischemia. There is no ectopy. Cardiac Monitoring: sinus bradycardia at 56 Imaging studies: CT scan of the chest: As per [facility] Portable chest x-ray: No acute pulmonary infiltrates or evidence of widened mediastinum as per my independent interpretation. HPI: 59 year old Female arrives for evaluation of chest discomfort. Patient had sudden onset of substernal and right-sided chest discomfort around 7 PM. She had been eating dinner which consisted of pork chops and sweet potatoes when she suddenly felt discomfort in her chest with associated nausea and right arm pain. She tried to make herself vomit which she thought relieve some of the discomfort but then it returned. She tried taking nitroglycerin which made her vomit again. This did relieve some of the gas pain as she describes it but the pain persisted. PAST MEDICAL HISTORY: See Below, PAST SURGICAL HISTORY: See Below, SOCIAL HISTORY: See Below, HOME MEDICATIONS: See list ALLERGIES: See list VITALS: See Below PHYSICAL EXAMINATION: HEENT: Head - normocephalic and atraumatic. Pupils are equal, round, and reactive to light. Extraocular eye muscles are intact, and sclera are anicteric. Nose - moist nasal mucosa without discharge. Mouth - moist buccal mucosa. Oropharynx is nonerythematous and there is no tonsillar exudate or edema noted. Neck: Supple; no JVD, nuchal rigidity, cervical lymphadenopathy, or auscultated bruits. Heart: Bradycardic rate and regular rhythm. There is a normal S1 and S2 with no murmurs, clicks, or gallops appreciated. Lungs: Clear to auscultation bilaterally with no wheezes, rales, or rhonchi. Abdomen: Soft, completely nontender, nondistended, with good bowel sounds. There are no palpable pulsatile masses or hepatosplenomegaly. There is no guarding, rigidity, or rebound noted. Extremities: No evidence of cyanosis, clubbing, or edema. There are easily palpable peripheral pulses. Skin: warm and dry with good turgor and no rashes. Emergency Department treatment: sample washer, IV Pepcid, IV Zofran, IV normal saline drip Emergency Department course: The patient was evaluated in room A-10. A complete history and physical was performed. An order was placed for continuous cardiac monitoring. The patient was in a sinus bradycardia at a rate of 56. A twelve- lead EKG was obtained as described above. Portable chest x-ray was performed. Patient was given a dose of IV Pepcid. This did not seem to relieve her discomfort. She went for CT scan of the chest. I reviewed records in the [employer] system. I discussed the case with the [facility] manager materials management. The patient had an episode of vomiting with undigested food. Patient was given a dose of IV Zofran. I discussed the case with Dr. Riley and Dr. Love Past Med/Surg History Problem List (Updated 09/24/24 @ 15:21 by Kristin Parker DO) Atypical chest pain (Acute) Food impaction of esophagus (Acute) Dysphagia Hypertensive crisis Substernal chest pain (Acute) Food impaction of esophagus Encounter for pre-operative examination Nausea and vomiting Chest pain S/P laparoscopic supracervical hysterectomy UTI (urinary tract infection) (Acute) UTI (lower urinary tract infection) (Acute) UTI (lower urinary tract infection) (Acute) Syncope (Acute) Syncope (Acute) Hyperglycemia (Acute) Dysuria (Acute) Chest pain (Acute) Bronchitis (Acute) Anal fissure (Acute) Abdominal pain (Acute) Fibroid uterus Jaclyn-menopause Poorly controlled type 2 diabetes mellitus Adult-onset Still's disease Morbid obesity with BMI of 60.0-69.9, adult Obstructive sleep apnea History of restless legs syndrome Iron deficiency anemia Bipolar disorder Hypothyroidism Asthma (Chronic) HTN (hypertension) (Chronic) Diabetes (Chronic) NSTEMI (non-ST elevated myocardial infarction) 04/02/23 - treated at [facility] and then transferred to [facility] for a cardiac cath with 1 stent. Osteoarthritis Hyperlipemia hx Medical History On anticoagulant therapy Cancer (2017) uterine cancer Degenerative disc disease Osteoarthritis Kidney mass noted on ultrasound - [facility], f/u [facility] Hypothyroidism Anemia hx Bipolar disorder Anxiety Cardiac murmur HX Sleep apnea CPAP Asthma rarely uses nebulizer Diabetes mellitus, type 2 IDDM Hypertension hx GERD (gastroesophageal reflux disease) Restless leg Surgical History S/P laparoscopic hysterectomy (~2021) with BSO (at [facility]) History of cardiac cath 11/2022 at [facility] 04/02/23 at [facility] with x1 drug eluting stent placed. History of herniorrhaphy History of cholecystectomy with hernia repair History of gastric bypass 2019 [facility] LB weight loss since History of anesthesia reaction reports she woke up during knee replacement surgery History of total knee replacement R/L History of tooth extraction History of esophagogastroduodenoscopy (EGD) History of colonoscopy Family History Father Family history of diabetes mellitus Sister Family history of diabetes mellitus Brother Family history of diabetes mellitus Mother Family history of diabetes mellitus Father Family history of esophageal cancer Brother Family history of esophageal cancer Other No family history of adverse response to anesthesia Social History Smoking Status: Never smoker Second Hand Exposure: Yes (PARENT SMOKED); Do You Dip or Chew Tobacco: No; Hx Alcohol Use: No Hx Substance Use: No Preferred Language: Vietnamese Communication Ability: Effective Public Address System Installer Required: No Beliefs That Will Affect Care: None Current Living Situation: Spouse current occupational status: other 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 Feels Safe at Home: Yes Safety Concerns: Feels Safe At This Time Assistive Devices: BiPap and Glasses Assistive Devices Comment: continuous glucose monitor Allergies Allergies Allergy/AdvReac Type Severity Reaction Status Date / Time bee venom protein (honey bee) Allergy Severe HIVES AND Verified 07/25/23 19:17 DIFFICULTY BREATHING sucralfate Allergy Severe numbness Verified 07/25/23 19:17 face,lips tongue ciprofloxacin Allergy Intermediate heart Verified 07/25/23 19:17 palpatations clarithromycin Allergy Intermediate NAUSEA AND Verified 07/25/23 19:17 DELUSIONAL clindamycin Allergy Intermediate "FELT LIKE Verified 07/25/23 19:17 MY HEAD EXPLODE" doxepin Allergy Intermediate BURNING TO Verified 07/25/23 19:17 APPLICATION SITE AND JITTERINESS doxycycline Allergy Intermediate ALTERED Verified 07/25/23 19:17 MENTAL STATUS oxycodone Allergy Intermediate HALLUCINATI Verified 07/25/23 19:17 ONS quetiapine Allergy Intermediate HALLUCINATIONS, Verified 07/25/23 19:17 JITTERYNESS valproic acid Allergy Intermediate "LOOSE Verified 07/25/23 19:17 MIND" Penicillins Allergy Unknown Unknown- Verified 07/25/23 19:17 A CHILD gabapentin AdvReac Intermediate Extremely Verified 07/25/23 19:17 tired hydroxyzine AdvReac Intermediate Slept for Verified 07/25/23 19:17 days indomethacin AdvReac Intermediate "SPACED Verified 07/25/23 19:17 OUT" Macrolide Antibiotics AdvReac Intermediate HEADACHE Verified 07/25/23 19:17 AND NAUSEA ranitidine AdvReac Intermediate Slept for Verified 07/25/23 19:17 days alprazolam AdvReac Mild JITTERY Verified 07/25/23 19:17 erythromycin base AdvReac Mild NAUSEA Verified 07/25/23 19:17 Sulfa (Sulfonamide AdvReac Mild UPSET Verified 07/25/23 19:17 Antibiotics) STOMACH Home Meds Home Medications Medication Instructions Recorded Confirmed cyanocobalamin (vitamin B-12) 1,000 mcg PO QAM 05/11/18 09/24/24 1,000 mcg tablet (Vitamin B-12) ropinirole 1 mg tablet 2 mg PO HS 12/03/18 09/24/24 ipratropium 0.5 mg-albuterol 3 mg 3 ml inhalation QID PRN Shortness 04/07/19 09/24/24 (2.5 mg base)/3 mL nebulization Of Breath Or Wheezing soln ropinirole 0.5 mg tablet 0.5 mg PO DAILY PRN Restless Leg(S) 10/28/21 09/24/24 aspirin 81 mg tablet,delayed 81 mg PO QAM 04/02/23 09/24/24 release insulin aspart U-100 100 unit/mL 7 unit subcut TIDM 04/02/23 09/24/24 (3 mL) subcutaneous pen (Novolog FlexPen U-100 Insulin aspart) insulin degludec 100 unit/mL (3 20 unit subcut QAM 04/02/23 09/24/24 mL) subcutaneous pen (Tresiba FlexTouch U-100 insulin) levothyroxine 125 mcg tablet 125 mcg PO QAM 04/02/23 09/24/24 lithium carbonate 150 mg capsule 150 mg PO QAM 04/02/23 09/24/24 lithium carbonate 450 mg 450 mg PO QAM 04/02/23 09/24/24 tablet,extended release meclizine 25 mg tablet 25 mg PO TID PRN Dizziness 04/02/23 09/24/24 nitroglycerin 0.4 mg sublingual 0.4 mg sublingual UD PRN Chest Pain 04/02/23 09/24/24 tablet pantoprazole 40 mg tablet,delayed 40 mg PO QAM 04/02/23 09/24/24 release metoprolol succinate 25 mg 25 mg PO QAM 04/19/23 09/24/24 tablet,extended release 24 hr tirzepatide 12.5 mg/0.5 mL 12.5 mg subcut WK 09/24/24 09/24/24 subcutaneous pen injector (Teresa) Previous Rx's Medication Instructions Recorded acetaminophen 300 mg-codeine 30 mg 1 tab PO Q8H PRN pain #20 tabs 10/15/23 tablet Results & Data (ED) Vital Signs Vital Signs - 24 hr 09/23/24 22:49 09/23/24 22:54 09/23/24 23:03 Temperature 36.8 C Temperature Source Temporal Artery Scan Pulse Rate 56 L 57 L Pulse Rate [Apical] Pulse Rate from SpO2 Sensor 58 L Pulse Rhythm Regular Pulse Rhythm [Apical] Pulse Strength Normal Pulse Strength [Apical] Respiratory Rate 16 16 Respiratory Effort / Characteristics Non-Labored Spontaneous Respiratory Depth Normal Respiratory Pattern Regular Blood Pressure 163/78 H 169/94 H Blood Pressure [Right Arm] Blood Pressure Mean 106 119 Blood Pressure Mean [Right Arm] Pulse Oximetry 98 99 98 Oxygen Delivery Method Room Air Room Air Oxygen Flow Rate 0 Sepsis Recent Fever Within 48 Hours No Sepsis New/Unexplained Change in Mental Status No Sepsis Action Taken by Nursing No Action Required 09/23/24 23:30 09/24/24 00:00 09/24/24 00:40 Temperature Temperature Source Pulse Rate 56 L 67 Pulse Rate [Apical] 51 L Pulse Rate from SpO2 Sensor Pulse Rhythm Pulse Rhythm [Apical] Regular Pulse Strength Pulse Strength [Apical] Normal Respiratory Rate 15 22 18 Respiratory Effort / Characteristics Non-Labored Spontaneous Respiratory Depth Normal Respiratory Pattern Regular Blood Pressure 148/68 H 168/75 H Blood Pressure [Right Arm] 191/84 H Blood Pressure Mean 96 106 Blood Pressure Mean [Right Arm] 119 Pulse Oximetry 100 99 96 Oxygen Delivery Method Room Air Oxygen Flow Rate Sepsis Recent Fever Within 48 Hours Sepsis New/Unexplained Change in Mental Status Sepsis Action Taken by Nursing 09/24/24 00:40 09/24/24 01:30 09/24/24 02:00 Temperature Temperature Source Pulse Rate 60 60 60 Pulse Rate [Apical] Pulse Rate from SpO2 Sensor 57 L Pulse Rhythm Pulse Rhythm [Apical] Pulse Strength Pulse Strength [Apical] Respiratory Rate 18 23 20 Respiratory Effort / Characteristics Respiratory Depth Respiratory Pattern Blood Pressure 191/84 H 176/91 H 191/93 H Blood Pressure [Right Arm] Blood Pressure Mean 138 119 125 Blood Pressure Mean [Right Arm] Pulse Oximetry 98 96 97 Oxygen Delivery Method Oxygen Flow Rate Sepsis Recent Fever Within 48 Hours Sepsis New/Unexplained Change in Mental Status Sepsis Action Taken by Nursing 09/24/24 02:00 09/24/24 02:30 09/24/24 02:36 Temperature Temperature Source Pulse Rate 60 61 66 Pulse Rate [Apical] Pulse Rate from SpO2 Sensor Pulse Rhythm Pulse Rhythm [Apical] Pulse Strength Pulse Strength [Apical] Respiratory Rate 22 20 13 Respiratory Effort / Characteristics Respiratory Depth Respiratory Pattern Blood Pressure 191/83 H 205/80 H 202/82 H Blood Pressure [Right Arm] Blood Pressure Mean 113 121 122 Blood Pressure Mean [Right Arm] Pulse Oximetry 98 96 98 Oxygen Delivery Method Room Air Oxygen Flow Rate Sepsis Recent Fever Within 48 Hours Sepsis New/Unexplained Change in Mental Status Sepsis Action Taken by Nursing 09/24/24 04:23 Temperature Temperature Source Pulse Rate 56 L Pulse Rate [Apical] Pulse Rate from SpO2 Sensor Pulse Rhythm Pulse Rhythm [Apical] Pulse Strength Pulse Strength [Apical] Respiratory Rate Respiratory Effort / Characteristics Respiratory Depth Respiratory Pattern Blood Pressure Blood Pressure [Right Arm] Blood Pressure Mean Blood Pressure Mean [Right Arm] Pulse Oximetry Oxygen Delivery Method Oxygen Flow Rate Sepsis Recent Fever Within 48 Hours Sepsis New/Unexplained Change in Mental Status Sepsis Action Taken by Nursing Laboratory Data 09/24/24 06:17 09/24/24 06:17 Lab Results 09/23/24 Range/Units 23:25 WBC 8.21 (4.8-10.8) K/ul RBC 4.26 (4.20-5.40) M/uL Hgb 12.9 (12.0-16.0) g/dl Hct 39.1 (37.0-47.0) % MCV 91.8 (80.0-100.0) fL MCH 30.3 (25.0-34.0) pg MCHC 33.0 (32.0-36.0) g/dL RDW Std Deviation 44.4 (36.4-46.3) fL RDW Coeff of Gee 13.2 (11.5-14.5) % Plt Count 334 (130-400) K/uL MPV 9.8 (9.4-12.4) fL Immature Gran % (Auto) 0.1 % Neut % (Auto) 66.9 % Lymph % (Auto) 24.2 % Swisher % (Auto) 6.0 % Eos % (Auto) 2.3 % Baso % (Auto) 0.5 % Neut # (Auto) 5.49 (1.40-6.50) K/uL Lymph # (Auto) 1.99 (1.20-3.40) K/uL Swisher # (Auto) 0.49 (0.11-0.59) K/uL Eos # (Auto) 0.19 (0.00-0.50) K/uL Baso # (Auto) 0.04 (0.00-0.20) K/uL Immature Gran # (Auto) 0.01 (0.01-0.20) K/uL Sodium 138 (136-145) mmol/L Potassium 3.6 (3.5-5.1) mmol/L Chloride 105 (98-107) mmol/L Carbon Dioxide 27 (21-32) mmol/L Anion Gap 6 (3-11) BUN 17 (6-23) mg/dl Creatinine 0.96 (0.6-1.2) mg/dl Est Cr Clr Drug Dosing 72.4 ml/min eGFR 67.73 BUN/Creatinine Ratio 17.7 (10-20) Glucose 130 H (70-99(Fasting)) mg/dl Calcium 9.4 (8.6-10.3) mg/dl Magnesium 2.1 (1.7-2.4) mg/dl Total Bilirubin 0.6 (0.2-1.0) mg/dl AST 24 (13-39) U/L ALT 16 (7-52) U/L Alkaline Phosphatase 127 H (34-104) U/L Troponin I High Sens 7.7 (0-14) pg/ml Total Protein 7.5 (6.0-8.3) gm/dl Albumin 4.0 (3.4-5.0) gm/dl Globulin 3.5 (2.5-4.0) gm/dl Albumin/Globulin Ratio 1.1 (0.9-2) Lipase 9 L (11-82) U/L Administered Medications Acetaminophen (Acetaminophen 325 Mg Tab) 650 mg PO QID PRN PRN Reason: pain/fever Stop: 10/24/24 04:29 Last Admin: 09/24/24 07:57 Dose: 650 mg Documented By: MARIFER Hydrocodone Bitart/Acetaminophen (Hydrocodone/Acetamophen 5/325mg Tab) 1 tab PO QID PRN PRN Reason: Pain Stop: 10/08/24 04:30 Last Admin: 09/24/24 06:21 Dose: 1 tab Documented By: ANÍBAL Amlodipine Besylate (Amlodipine Besylate 5 Mg Tab) 2.5 mg PO [facility] Stop: 10/24/24 08:59 Last Admin: 09/24/24 07:53 Dose: 2.5 mg Documented By: MARIFER Insulin Aspart (Insulin Aspart Per Unit Charge) 0 units SC [facility] Stop: 10/24/24 05:44 Last Admin: 09/24/24 11:44 Dose: Not Given Documented By: Admin: 09/24/24 06:41 Dose: Not Given Documented By: ANÍBAL Insulin Glargine (Lantus Per Unit Charge) 10 units SQ [facility]; Protocol Stop: 10/24/24 08:59 Last Admin: 09/24/24 08:00 Dose: Not Given Documented By: MARIFER Levothyroxine Sodium (Levothyroxine Sodium 125 Mcg Tablet) [facility]: 10/24/24 06:29 Last Admin: 09/24/24 06:22 Dose: 125 mcg Documented By: ANÍBAL Lucas Carbonate (Lucas Carbonate 450 Mg Tabcr) 450 mg PO [facility] Stop: 10/24/24 08:59 Last Admin: 09/24/24 07:53 Dose: 450 mg Documented By: MARIFER Lucas Carbonate (Lucas Carbonate 300 Mg Tab) 150 mg PO [facility] Stop: 10/24/24 08:59 Last Admin: 09/24/24 07:53 Dose: 150 mg Documented By: MARIFER Metoprolol Succinate (Metoprolol Succ 25mg Ext Rel Tab) 25 mg PO [facility] Stop: 10/24/24 08:59 Last Admin: 09/24/24 07:54 Dose: 25 mg Documented By: MARIFER Discontinued Medications Hydralazine HCl (Hydralazine Hcl 20 Mg/Ml Vial) 10 mg IV NOW STA Stop: 09/24/24 04:25 Last Admin: 09/24/24 04:35 Dose: 10 mg Documented By: ZONIA Famotidine (Pepcid 20mg Iv Push) 20 mg in 5 mls @ 2.5 mls/min IV NOW STA Stop: 09/23/24 23:31 Last Admin: 09/23/24 23:35 Dose: 2.5 mls/min Documented By: KELLEN Sodium Chloride (Nss) 500 mls @ 125 mls/hr IV .Q4H [facility] Stop: 09/24/24 06:59 Last Infusion: 09/24/24 04:22 Dose: Infused Documented By: Admin: 09/24/24 02:56 Dose: 125 mls/hr Documented By: KELLEN Sodium Chloride (Nss) 500 mls @ 50 mls/hr IV .Q10H ONE Stop: 09/24/24 13:44 Last Infusion: 09/24/24 12:55 Dose: Infused Documented By: Admin: 09/24/24 04:23 Dose: 50 mls/hr Documented By: ZONIA Acetaminophen (Ofirmev) 1,000 mg in 100 mls @ 400 mls/hr IV NOW STA Stop: 09/24/24 04:38 Last Admin: 09/24/24 05:11 Dose: Not Given Documented By: ZONIA Promethazine HCl (Phenergan) 12.5 mg in 50.5 mls @ 202 mls/hr IV NOW STA Stop: 09/24/24 04:41 Last Infusion: 09/24/24 04:49 Dose: Infused Documented By: Admin: 09/24/24 04:34 Dose: 202 mls/hr Documented By: ZONIA Ioversol (Optiray 320 125ml) 125 ml IV ONCE ONE Stop: 09/24/24 00:41 Last Admin: 09/24/24 00:40 Dose: 118 ml Documented By: JOSH Labetalol HCl (Labetalol Hcl Iv 5 Mg/Ml 20ml) 10 mg IV NOW STA Stop: 09/24/24 03:46 Last Admin: 09/24/24 04:23 Dose: Not Given Documented By: ZONIA Ondansetron HCl (Ondansetron Inj 2 Mg/Ml 2 Ml Vial) 4 mg IV NOW STA Stop: 09/24/24 02:36 Last Admin: 09/24/24 02:56 Dose: 4 mg Documented By: KELLEN Pantoprazole Sodium (Pantoprazole 40 Mg Tab) 40 mg PO QAM [facility] Stop: 10/24/24 08:59 Last Admin: 09/24/24 07:54 Dose: 40 mg Documented By: MARIFER Imaging Data Radiologist's Impression: Head CT 09/24/24 04:24 EXAM: CT head/brain wo con CLINICAL HISTORY: waters, htn crisis TECHNIQUE: Multiple axial images are obtained from the skull base to the vertex without contrast. CT scan was performed according to ALARA (as low as reasonable achievable). COMPARISON: None. FINDINGS: The brain shows normal morphology, attenuation, and volume for age. No evidence of space occupying lesion, hemorrhage, edema, mass effect, midline shift, extra axial collection, or hydrocephalus is noted. Ventricles, sulci, and basal cisterns are symmetric and normal in size and configuration. The cuellar-white matter differentiation is preserved. Visualized paranasal sinuses and mastoid air cells are well aerated. Orbital contents are within normal limits. Bony structures are intact. IMPRESSION: 1. No evidence of acute intracranial abnormality is demonstrated Electronically signed by Guillermo Noguera 09-24-2024 06:42 AM Discharge Plan Visit Data Chief Complaint: Cardiac Assessment Stated Complaint: CARDIAC ASSESSMENT, CONCERN ABT HEART ATTACK ED Provider: Kristin Parker Discharge Problem: Food impaction of esophagus, Atypical chest pain Patient Disposition: Admitted As Inpatient Condition: Fair Discharge Instructions Interventions: ED Discharge Assessment Last Done: 09/24/24 05:12
[2024-09-23] MEDS: FAMOTIDINE 20MG IV PUSH 20 MG/5 ML SYR IV STA (23:35)
[2024-09-23 23:53] LABS: Hematocrit (blood only) 39.1 % (37.0-47.0); Hemoglobin 12.9 g/dl (12.0-16.0); Immature Granulocytes # (auto) 0.01 K/uL (0.01-0.20); Immature Granulocytes % (auto) 0.1 %; Mean Corpuscular Hemoglobin 30.3 pg (25.0-34.0); Mean Corpuscular Volume 91.8 fL (80.0-100.0); Platelet Count 334 K/uL (130-400); RDW Standard Deviation 44.4 fL (36.4-46.3); Red Blood Count 4.26 M/uL (4.20-5.40); White Blood Count 8.21 K/ul (4.8-10.8)
[2024-09-24 00:11] LABS: Alanine Aminotransferase 16.0 U/L (7-52); Albumin Globulin Ratio 1.1 (0.9-2); Alkaline Phosphatase 127.0 U/L (34-104); Anion Gap 6.0 (3-11); Bilirubin,Total 0.6 mg/dl (0.2-1.0); Blood Urea Nitrogen 17.0 mg/dl (6-23); Calcium 9.4 mg/dl (8.6-10.3); Carbon Dioxide 27.0 mmol/L (21-32); Chloride 105.0 mmol/L (98-107); Creatinine Clr Calc Pharmacy 72.4 ml/min; Globulin 3.5 gm/dl (2.5-4.0); Glucose 130.0 mg/dl (70-99(Fasting)); Lipase 9.0 U/L (11-82); Potassium 3.6 mmol/L (3.5-5.1); Sodium 138.0 mmol/L (136-145); Total Protein 7.5 gm/dl (6.0-8.3)
[2024-09-24] MEDS: OPTIRAY 320 125ml IV ONE (00:40)
--- NOTE | 2024-09-24 00:49 | XRay Report ---
EXAM: XR chest 1V portable CLINICAL HISTORY: Chest pain, nonspecific TECHNIQUE: An X-ray image of the chest is obtained in AP projection. COMPARISON: 04/01/2023 FINDINGS: Pulmonary Parenchyma: Rotated projection. No evidence of consolidation, collapse, or focal opacities. Right hilar prominence due to rotated projection. No evidence of pleural effusion or pleural thickening. Heart and Mediastinum: Heart size and shape are normal. No mediastinal widening or masses. No hilar or mediastinal lymphadenopathy. Bony Thorax: Bony thorax appears intact. Bilateral acromioclavicular arthrosis. Soft Tissues: Soft tissues overlying the chest wall are unremarkable. IMPRESSION: 1. No acute cardiopulmonary abnormalities are identified. 2. No significant interval change. Electronically signed by Marcio Howard 09-24-2024 12:48 AM
--- NOTE | 2024-09-24 01:54 | CT Scan Report ---
EXAM: CT angio chest dissec wo/w con CLINICAL HISTORY: w/ oral contrast to also eval for esophageal tear TECHNIQUE: Contiguous axial images were obtained from the neck base through the upper abdomen following intravenous administration of iodinated contrast material. Angiographic images were processed, 3D MIP images were acquired for interpretation. If IV contrast material had not been administered, the likelihood of detecting abnormalities relevant to the patient's condition would have been substantially decreased. Coronal and sagittal 3-D MIPs were likewise performed and indicated to increase the sensitivity of detectin diffuse clinically relevant pathology. CT scan was performed according to ALARA (as low as reasonable achievable). COMPARISON: 15 dec 2023. FINDINGS: Mild dilatation of pulmonary trunk ,bilateral main pulmonary artery up to subsegmental level with mild tortuosity - suggest possibility of pulmonary arterial hypertension Esophagus is mildly dilated with distal esophagus is filled with food material. Oral contrast is noted within the esophagus without obvious leaking ( no obvious rupture is seen) Post gastric bypass status likely- kindly correlate clinically. Diffuse ground-glass haze with multiple area of air trapping are noted involving both lungs screening mosaic attenuation. Adequate contrast bolus without evidence of pulmonary embolism. The central airways are patent. No pleural effusion. The heart, aorta, and pulmonary arteries are of normal size and configuration. There are coronary artery and aortic atherosclerotic calcifications. No pericardial effusion is identified. The thyroid is unremarkable. No mediastinal, hilar, or axillary lymphadenopathy is noted. No suspicious lytic or sclerotic osseous lesions are identified. IMPRESSION: 1. No evidence of pulmonary embolism 2. Mild dilatation of pulmonary trunk ,bilateral main pulmonary artery up to subsegmental level with mild tortuosity - suggest possibility of pulmonary arterial hypertension-stable. 3. Esophagus is mildly dilated with distal esophagus is filled with food material. Oral contrast is noted within the esophagus without obvious leaking ( no obvious rupture is seen)-new finding. 4. Diffuse ground-glass haze with multiple area of air trapping are noted involving both lungs screening mosaic attenuation. -new finding. 5. Post gastric bypass status likely- kindly correlate clinically. Electronically signed by Guillermo Noguera 09-24-2024 01:53 AM
[2024-09-24] MEDS: ONDANSETRON INJ 2 MG/ML 2 ML VIAL IV STA (02:56)
[2024-09-24] MEDS: SODIUM CHLORIDE 0.9% 500 ML IV SCH (02:56)
[2024-09-24 04:12] LABS: Magnesium 2.1 mg/dl (1.7-2.4)
[2024-09-24] MEDS: LABETALOL HCL IV 5 MG/ML 20ML IV STA (04:23)
[2024-09-24] MEDS: SODIUM CHLORIDE 0.9% 500 ML IV ONE (04:23)
--- NOTE | 2024-09-24 04:25 | History & Physical Report ---
Date of Service September 24, 2024 Assessment & Plan (1) Hypertensive crisis: Plan: Assessment and plan below following discussion of case with ED provider and reviewing patient history/pertinent normal/abnormal diagnostic test results. Hypertensive crisis Unknown baseline BP control Secondary to esophageal food impaction History of GERD, history of gastric bypass hx CAD status post stent (2023) RUE pain PVD, carotid artery disease as per records mild TR hyperlipidemia, on statin Rx bronchial asthma, stable COLTEN on CPAP DM 2 insulin requiring, suboptimal control as of recent hemoglobin A1c of 7.7 last June 2024 hypothyroidism, euthyroid as of recent outpatient TSH unspecified parkinsonism as per records/mild cognitive impairment as per records, patient mentating well mood disorder, stable OBS Admit to PCU IV hydralazine 1 dose now Add amlodipine to regimen, further increase in home beta-jessica limited by bradycardia (ACEI/ARB medications with potential interaction with patient's lithium Rx.) GI consult re: esophageal food impaction (ED provider already in touch with Dr. Riley.) N.p.o. in anticipation of endoscopy this a.m. Hold aspirin in anticipation of endoscopic procedure. Plain x-rays of the right upper extremity Basal bolus insulin adjusted for n.p.o. status, ISS BG goal 110-140 DVT prophylaxis. SCDs re: procedure Full code Text document was generated using [employer] voice recognition software. It may contain grammatical or spelling errors. Kindly contact undersigned for clarification of any documentation item in question. History of Present Illness Chief Complaint: Right-sided chest pain, nausea, vomiting, food impaction Primary Care Provider: Teodoro Galaviz DO History obtained from patient, family, and records. Medical history significant for CAD status post stent (2023), PVD, mild TR, hypertension, hyperlipidemia, bronchial asthma, COLTEN on CPAP, DM 2 insulin requiring, hypothyroidism, GERD, history of gastric bypass, RLS, unspecified parkinsonism as per records, mild cognitive impairment as per records, endometrial hyperplasia as per records, mood disorder. Last confinement March 2023 for NSTEMI. Patient transferred to [facility] for further management. Subsequent mid circumflex stent placement. Patient woke up with right shoulder/arm pain yesterday. No recollection of trauma. Patient slept on her right side the night before. Patient noted food stuck in her throat while eating pork chops last night for dinner. Patient thinks she may have swallowed food too fast. Patient usually eats carefully after gastric bypass. Food getting stuck in the throat has happened before but relieved by emesis at home. Last episode was last month. Patient later on experienced achy right sided chest pain with worsening of right upper arm pain from the morning. Subsequent nausea and bilious emesis episodes with with food particles. No SOB, no cough symptoms. Patient still felt ill despite emesis episode. Patient requested to bring her to hospital to get checked out. Chest pain at one point went to her back during emesis episode en route to hospital. Patient also mentions intermittent achy headache episodes over the last few days. Highest SBP of 200s documented at the ER. Medical History as above 2023 EGD showed no endoscopic esophageal abnormality to explain patient's dysphagia. Esophagus dilated. Regular Z-line 40 cm from incisors. Gastric bypass with normal-sized pouch and intact staple line. Normal examined jejunum. 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 Allergies Allergy/AdvReac Type Severity Reaction Status Date / Time bee venom protein (honey bee) Allergy Severe HIVES AND Verified 07/25/23 19:17 DIFFICULTY BREATHING sucralfate Allergy Severe numbness Verified 07/25/23 19:17 face,lips tongue ciprofloxacin Allergy Intermediate heart Verified 07/25/23 19:17 palpatations clarithromycin Allergy Intermediate NAUSEA AND Verified 07/25/23 19:17 DELUSIONAL clindamycin Allergy Intermediate "FELT LIKE Verified 07/25/23 19:17 MY HEAD EXPLODE" doxepin Allergy Intermediate BURNING TO Verified 07/25/23 19:17 APPLICATION SITE AND JITTERINESS doxycycline Allergy Intermediate ALTERED Verified 07/25/23 19:17 MENTAL STATUS oxycodone Allergy Intermediate HALLUCINATI Verified 07/25/23 19:17 ONS quetiapine Allergy Intermediate HALLUCINATIONS, Verified 07/25/23 19:17 JITTERYNESS valproic acid Allergy Intermediate "LOOSE Verified 07/25/23 19:17 MIND" Penicillins Allergy Unknown Unknown- Verified 07/25/23 19:17 A CHILD gabapentin AdvReac Intermediate Extremely Verified 07/25/23 19:17 tired hydroxyzine AdvReac Intermediate Slept for Verified 07/25/23 19:17 days indomethacin AdvReac Intermediate "SPACED Verified 07/25/23 19:17 OUT" Macrolide Antibiotics AdvReac Intermediate HEADACHE Verified 07/25/23 19:17 AND NAUSEA ranitidine AdvReac Intermediate Slept for Verified 07/25/23 19:17 days alprazolam AdvReac Mild JITTERY Verified 07/25/23 19:17 erythromycin base AdvReac Mild NAUSEA Verified 07/25/23 19:17 Sulfa (Sulfonamide AdvReac Mild UPSET Verified 07/25/23 19:17 Antibiotics) STOMACH Home Medications Medication Instructions Recorded Confirmed Type cyanocobalamin (vitamin B-12) 1,000 mcg PO QAM 05/11/18 09/24/24 History 1,000 mcg tablet (Vitamin B-12) ropinirole 1 mg tablet 2 mg PO HS 12/03/18 09/24/24 History ipratropium 0.5 mg-albuterol 3 mg 3 ml inhalation QID PRN Shortness 04/07/19 09/24/24 History (2.5 mg base)/3 mL nebulization Of Breath Or Wheezing soln ropinirole 0.5 mg tablet 0.5 mg PO DAILY PRN Restless Leg(S) 10/28/21 09/24/24 History aspirin 81 mg tablet,delayed 81 mg PO QAM 04/02/23 09/24/24 History release insulin aspart U-100 100 unit/mL 7 unit subcut TIDM 04/02/23 09/24/24 History (3 mL) subcutaneous pen (Novolog FlexPen U-100 Insulin aspart) insulin degludec 100 unit/mL (3 20 unit subcut QAM 04/02/23 09/24/24 History mL) subcutaneous pen (Tresiba FlexTouch U-100 insulin) levothyroxine 125 mcg tablet 125 mcg PO QAM 04/02/23 09/24/24 History lithium carbonate 150 mg capsule 150 mg PO QAM 04/02/23 09/24/24 History lithium carbonate 450 mg 450 mg PO QAM 04/02/23 09/24/24 History tablet,extended release meclizine 25 mg tablet 25 mg PO TID PRN Dizziness 04/02/23 09/24/24 History nitroglycerin 0.4 mg sublingual 0.4 mg sublingual UD PRN Chest Pain 04/02/23 09/24/24 History tablet pantoprazole 40 mg tablet,delayed 40 mg PO QAM 04/02/23 09/24/24 History release metoprolol succinate 25 mg 25 mg PO QAM 04/19/23 09/24/24 History tablet,extended release 24 hr acetaminophen 300 mg-codeine 30 mg 1 tab PO Q8H PRN pain #20 tabs 10/15/23 09/24/24 Rx tablet tirzepatide 12.5 mg/0.5 mL 12.5 mg subcut WK 09/24/24 09/24/24 History subcutaneous pen injector (Mounjaro) Past Med/Surg History Problem List (Updated 09/24/24 @ 05:51 by Bao Salgado MD) Hypertensive crisis Substernal chest pain (Acute) Food impaction of esophagus Encounter for pre-operative examination Nausea and vomiting Chest pain S/P laparoscopic supracervical hysterectomy UTI (urinary tract infection) (Acute) UTI (lower urinary tract infection) (Acute) UTI (lower urinary tract infection) (Acute) Syncope (Acute) Syncope (Acute) Hyperglycemia (Acute) Dysuria (Acute) Chest pain (Acute) Bronchitis (Acute) Anal fissure (Acute) Abdominal pain (Acute) Fibroid uterus Jaclyn-menopause Poorly controlled type 2 diabetes mellitus Adult-onset Still's disease Morbid obesity with BMI of 60.0-69.9, adult Obstructive sleep apnea History of restless legs syndrome Iron deficiency anemia Bipolar disorder Hypothyroidism Asthma (Chronic) HTN (hypertension) (Chronic) Diabetes (Chronic) NSTEMI (non-ST elevated myocardial infarction) 04/02/23 - treated at [facility] and then transferred to [facility] for a cardiac cath with 1 stent. Osteoarthritis Hyperlipemia hx Medical History On anticoagulant therapy Cancer (2017) uterine cancer Degenerative disc disease Osteoarthritis Kidney mass noted on ultrasound - [facility], f/u [facility] Hypothyroidism Anemia hx Bipolar disorder Anxiety Cardiac murmur HX Sleep apnea CPAP Asthma rarely uses nebulizer Diabetes mellitus, type 2 IDDM Hypertension hx GERD (gastroesophageal reflux disease) Restless leg Surgical History S/P laparoscopic hysterectomy (~2021) with BSO (at [facility]) History of cardiac cath 11/2022 at [facility] 04/02/23 at [facility] with x1 drug eluting stent placed. History of herniorrhaphy History of cholecystectomy with hernia repair History of gastric bypass 2019 [facility]200 LB weight loss since History of anesthesia reaction reports she woke up during knee replacement surgery History of total knee replacement R/L History of tooth extraction History of esophagogastroduodenoscopy (EGD) History of colonoscopy Family History Father Family history of diabetes mellitus Sister Family history of diabetes mellitus Brother Family history of diabetes mellitus Mother Family history of diabetes mellitus Father Family history of esophageal cancer Brother Family history of esophageal cancer Other No family history of adverse response to anesthesia Social History Smoking Status: Never smoker Second Hand Exposure: Yes (PARENT SMOKED); Do You Dip or Chew Tobacco: No; Hx Alcohol Use: No Hx Substance Use: No Preferred Language: [place] Communication Ability: Effective Finance Manager Required: No Beliefs That Will Affect Care: None Current Living Situation: Spouse current occupational status: other 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 Feels Safe at Home: Yes Safety Concerns: Feels Safe At This Time Assistive Devices: BiPap and Glasses Assistive Devices Comment: continuous glucose monitor Review of Systems Review of Systems: As per HPI, all other systems reviewed and negative Physical Exam Physical Exam: GENERAL: Comfortable, pleasant, obese, slightly anxious, no respiratory distress SKIN: Normal color, warm HEENT: Bespectacled, [place] palpebral conjunctivae, no ptosis, dry buccal mucosa NECK : Supple, no tenderness CHEST : CTA, no tenderness HEART : RRR, no obvious murmurs ABDOMEN: Some distention, minimal epigastric tenderness EXTREMITIES : Minimal LE swelling/tenderness, RUE tenderness, palpable pulses, no other conspicuous deformities noted NEUROLOGIC : Coherent, no facial asymmetry, no other gross focality Results & Data Results & Data Vital Signs (Past 12 Hours) Vital Signs Temp Pulse Pulse Resp BP BP Pulse Ox 09/24/24 04:23 56 L 09/24/24 02:36 66 13 202/82 H 98 09/24/24 02:30 61 20 205/80 H 96 07/15/25 02:00 60 22 191/83 H 98 09/24/24 02:00 60 20 191/93 H 97 09/24/24 01:30 60 23 176/91 H 96 09/24/24 00:40 60 18 191/84 H 98 09/24/24 00:40 51 L 18 191/84 H 96 09/24/24 00:00 67 22 168/75 H 99 09/23/24 23:30 56 L 15 148/68 H 100 09/23/24 23:03 57 L 16 169/94 H 98 09/23/24 22:54 36.8 C 56 L 16 163/78 H 99 09/23/24 22:49 98 O2 Del Method O2 Flow Rate 09/24/24 04:23 09/24/24 02:36 Room Air 09/24/24 02:30 09/24/24 02:00 09/24/24 02:00 09/24/24 01:30 09/24/24 00:40 09/24/24 00:40 Room Air 09/24/24 00:00 09/23/24 23:30 09/23/24 23:03 09/23/24 22:54 Room Air 09/23/24 22:49 Room Air 0 Laboratory Results Laboratory Results WBC 8.21 K/ul (4.8-10.8) 09/23/24:25 RBC 4.26 M/uL (4.20-5.40) 09/23/24 23:25 Hgb 12.9 g/dl (12.0-16.0) 09/23/24 23:25 Hct 39.1 % (37.0-47.0) 09/23/24 23:25 MCV 91.8 fL (80.0-100.0) 09/23/24 23:25 MCH 30.3 pg (25.0-34.0) 09/23/24: MCHC 33.0 g/dL (32.0-36.0) 09/23/24 23:25 RDW Std Deviation 44.4 fL (36.4-46.3) 09/23/24 23:25 RDW Coeff of Gee 13.2 % (11.5-14.5) 09/23/24: Plt Count 334 K/uL (130-400) 09/23/24 23:25 MPV 9.8 fL (9.4-12.4) 09/23/24 23: Immature Gran % (Auto) 0.1 % 09/23/24 23: Neut % (Auto) 66.9 % 09/23/24 23: Lymph % (Auto) 24.2 % 09/23/24 23: Maury % (Auto) 6.0 % 09/23/24 23: Eos % (Auto) 2.3 % 09/23/24 23: Baso % (Auto) 0.5 % 09/23/24:25 Neut # (Auto) 5.49 K/uL (1.40-6.50) 09/23/24: Lymph # (Auto) 1.99 K/uL (1.20-3.40) 09/23/24 23:25 Maury # (Auto) 0.49 K/uL (0.11-0.59) 09/23/24: Eos # (Auto) 0.19 K/uL (0.00-0.50) 09/23/24 23: Baso # (Auto) 0.04 K/uL (0.00-0.20) 09/23/24: Immature Gran # (Auto) 0.01 K/uL (0.01-0.20) 09/23/24 23:25 Sodium 138 mmol/L (136-145) 09/23/24 23:25 Potassium 3.6 mmol/L (3.5-5.1) 09/23/24 23: Chloride 105 mmol/L (98-107) 09/23/24 23: Carbon Dioxide 27 mmol/L (21-32) 09/23/24 23:25 Anion Gap 6 (3-11) 09/23/24 23: BUN 17 mg/dl (6-23) 09/23/24: Creatinine 0.96 mg/dl (0.6-1.2) 09/23/24 23:25 Est Cr Clr Drug Dosing 72.4 ml/min 09/23/24 23:25 eGFR 67.73 09/23/24 23:25 BUN/Creatinine Ratio 17.7 (10-20) 09/23/24 23:25 Glucose 130 mg/dl (70-99(Fasting)) H 09/23/24 23:25 Calcium 9.4 mg/dl (8.6-10.3) 09/23/24 23:25 Magnesium 2.1 mg/dl (1.7-2.4) 09/23/24 23:25 Total Bilirubin 0.6 mg/dl (0.2-1.0) 09/23/24 23: AST 24 U/L (13-39) 09/23/24 23: ALT 16 U/L (7-52) 09/23/24 23:25 Alkaline Phosphatase 127 U/L (34-104) H 09/23/24 23: Troponin I High Sens 7.7 pg/ml (0-14) 09/23/24: Total Protein 7.5 gm/dl (6.0-8.3) 09/23/24: Albumin 4.0 gm/dl (3.4-5.0) 09/23/24: Globulin 3.5 gm/dl (2.5-4.0) 09/23/24:25 Albumin/Globulin Ratio 1.1 (0.9-2) 09/23/24: Lipase 9 U/L (11-82) L 09/23/24 23:25 Impressions Chest CTA 09/23/24 23:25 EXAM: CT angio chest dissec wo/w con CLINICAL HISTORY: w/ oral contrast to also eval for esophageal tear TECHNIQUE: Contiguous axial images were obtained from the neck base through the upper abdomen following intravenous administration of iodinated contrast material. Angiographic images were processed, 3D MIP images were acquired for interpretation. If IV contrast material had not been administered, the likelihood of detecting abnormalities relevant to the patient's condition would have been substantially decreased. Coronal and sagittal 3-D MIPs were likewise performed and indicated to increase the sensitivity of detectin diffuse clinically relevant pathology. CT scan was performed according to ALARA (as low as reasonable achievable). COMPARISON: 15 dec 2023. FINDINGS: Mild dilatation of pulmonary trunk ,bilateral main pulmonary artery up to subsegmental level with mild tortuosity - suggest possibility of pulmonary arterial hypertension Esophagus is mildly dilated with distal esophagus is filled with food material. Oral contrast is noted within the esophagus without obvious leaking ( no obvious rupture is seen) Post gastric bypass status likely- kindly correlate clinically. Diffuse ground-glass haze with multiple area of air trapping are noted involving both lungs screening mosaic attenuation. Adequate contrast bolus without evidence of pulmonary embolism. The central airways are patent. No pleural effusion. The heart, aorta, and pulmonary arteries are of normal size and configuration. There are coronary artery and aortic atherosclerotic calcifications. No pericardial effusion is identified. The thyroid is unremarkable. No mediastinal, hilar, or axillary lymphadenopathy is noted. No suspicious lytic or sclerotic osseous lesions are identified. IMPRESSION: 1. No evidence of pulmonary embolism 2. Mild dilatation of pulmonary trunk ,bilateral main pulmonary artery up to subsegmental level with mild tortuosity - suggest possibility of pulmonary arterial hypertension-stable. 3. Esophagus is mildly dilated with distal esophagus is filled with food material. Oral contrast is noted within the esophagus without obvious leaking ( no obvious rupture is seen)-new finding. 4. Diffuse ground-glass haze with multiple area of air trapping are noted involving both lungs screening mosaic attenuation. -new finding. 5. Post gastric bypass status likely- kindly correlate clinically. Electronically signed by Guillermo Noguera 09-24-2024 01:53 AM Chest X-Ray 09/23/24 23:25 EXAM: XR chest 1V portable CLINICAL HISTORY: Chest pain, nonspecific TECHNIQUE: An X-ray image of the chest is obtained in AP projection. COMPARISON: 04/01/2023 FINDINGS: Pulmonary Parenchyma: Rotated projection. No evidence of consolidation, collapse, or focal opacities. Right hilar prominence due to rotated projection. No evidence of pleural effusion or pleural thickening. Heart and Mediastinum: Heart size and shape are normal. No mediastinal widening or masses. No hilar or mediastinal lymphadenopathy. Bony Thorax: Bony thorax appears intact. Bilateral acromioclavicular arthrosis. Soft Tissues: Soft tissues overlying the chest wall are unremarkable. IMPRESSION: 1. No acute cardiopulmonary abnormalities are identified. 2. No significant interval change. Electronically signed by Marcio Howard 09-24-2024 12:[address] head: No evidence of acute intracranial abnormality is demonstrated Diagnostic Findings EKG as per my interpretation rate 55, sinus bradycardia, normal axis, T wave flattening lateral leads
[2024-09-24] MEDS ORDERED: PROMETHAZINE 12.5 MG/50.5 ML BAG IV PRN (04:27)
[2024-09-24] MEDS ORDERED: LORazepam 0.5 MG TAB PO PRN (04:30)
[2024-09-24] MEDS ORDERED: MoRPHine SULFATE 4 MG/ML 1 ML CARP\\VIAL IV PRN (04:31)
[2024-09-24] MEDS: PROMETHAZINE 12.5 MG/50.5 ML BAG IV STA (04:34)
[2024-09-24] MEDS: ACETAMINOPHEN 1,000 MG/100 ML VIAL IV STA (05:11)
[2024-09-24] MEDS ORDERED: CARBOHYDRATES FOR HYPOGLYCEMIA PO PRN (05:45)
[2024-09-24] MEDS ORDERED: GLUCAGON FOR INJ 1 MG VIAL SQ PRN (05:45)
[2024-09-24] MEDS ORDERED: GLUCOSE 40% GEL 15 GM TUBE PO PRN (05:45)
[2024-09-24] MEDS ORDERED: DEXTROSE 50% 50 ML SYRINGE IV PRN (05:45)
[2024-09-24] MEDS ORDERED: GLUCOSE 10 TAB/TUBE PO PRN (05:45)
--- NOTE | 2024-09-24 06:20 | XRay Report ---
EXAM: XR shoulder RT min 2V routine CLINICAL HISTORY: pain TECHNIQUE: X-ray images of the right shoulder were obtained in anteroposterior (AP) projections (internal and external rotations) and grashey's view. COMPARISON: None. FINDINGS: Bone Structure: Bone structure is normal and aligned. No evidence of fracture or dislocation. The humeral head is properly positioned in the glenoid fossa. No osseous lesions or abnormalities were identified. Joint Spaces: Acromioclavicular osteoarthritis is seen in the form of a narrowed joint space and osteophytes of the articular surfaces Glenohumeral joint space is normal. No evidence of joint effusion or subluxation. Soft Tissues: Soft tissues appear normal and unremarkable. No soft tissue swelling, calcifications, or foreign bodies noted. Additional Findings: No signs of osteoarthritis, bone spurs, lytic or sclerotic lesions. IMPRESSION: Acromioclavicular osteoarthritis. No evidence of acute fracture or dislocation. Disclaimer: A subtle bone abnormality or fracture may not be readily apparent on X-rays, thus clinical correlation and further imaging including follow-up CT, MRI, or follow-up X-rays are advised as needed. Electronically signed by Marcio Howard 09-24-2024 06:20 AM
[2024-09-24] MEDS: HYDROCODONE/ACETAMOPHEN 5/325MG TAB PO PRN (06:21)
[2024-09-24] MEDS: LEVOTHYROXINE SODIUM 125 MCG TABLET PO SCH (06:22)
[2024-09-24 06:35] LABS: Hematocrit (blood only) 39.2 % (37.0-47.0); Hemoglobin 13.0 g/dl (12.0-16.0); Immature Granulocytes # (auto) 0.02 K/uL (0.01-0.20); Immature Granulocytes % (auto) 0.2 %; Mean Corpuscular Hemoglobin 30.3 pg (25.0-34.0); Mean Corpuscular Volume 91.4 fL (80.0-100.0); Platelet Count 325 K/uL (130-400); RDW Standard Deviation 44.3 fL (36.4-46.3); Red Blood Count 4.29 M/uL (4.20-5.40); White Blood Count 8.12 K/ul (4.8-10.8)
[2024-09-24] MEDS: INSULIN ASPART PER UNIT CHARGE SC SCH (06:41)
--- NOTE | 2024-09-24 06:42 | CT Scan Report ---
EXAM: CT head/brain wo con CLINICAL HISTORY: waters, htn crisis TECHNIQUE: Multiple axial images are obtained from the skull base to the vertex without contrast. CT scan was performed according to ALARA (as low as reasonable achievable). COMPARISON: None. FINDINGS: The brain shows normal morphology, attenuation, and volume for age. No evidence of space occupying lesion, hemorrhage, edema, mass effect, midline shift, extra axial collection, or hydrocephalus is noted. Ventricles, sulci, and basal cisterns are symmetric and normal in size and configuration. The cuellar-white matter differentiation is preserved. Visualized paranasal sinuses and mastoid air cells are well aerated. Orbital contents are within normal limits. Bony structures are intact. IMPRESSION: 1. No evidence of acute intracranial abnormality is demonstrated Electronically signed by Guillermo Noguera 09-24-2024 06:42 AM
[2024-09-24 06:53] LABS: Anion Gap 6.0 (3-11); Blood Urea Nitrogen 14.0 mg/dl (6-23); Calcium 9.5 mg/dl (8.6-10.3); Carbon Dioxide 28.0 mmol/L (21-32); Chloride 107.0 mmol/L (98-107); Creatinine Clr Calc Pharmacy 77.6 ml/min; Glucose 152.0 mg/dl (70-99(Fasting)); Potassium 3.8 mmol/L (3.5-5.1); Sodium 141.0 mmol/L (136-145)
[2024-09-24 07:09] LABS: Thyroid Stimulating Hormone 3.25 uIu/ml (0.300-4.500)
--- NOTE | 2024-09-24 07:46 | XRay Report ---
EXAM: XR forearm RT 2V CLINICAL HISTORY: pain TECHNIQUE: X-ray images of the right forearm were obtained in anteroposterior (AP) and lateral projections. COMPARISON: No prior studies available for comparison. FINDINGS: Bone Structure: Lucent line traversing the medial epicondyle of the distal humerus (could represent an accessory bone rather than a fracture fragment), which requires further evaluation of the maximum point of tenderness. Bone structure is normal and aligned. No evidence of fracture or dislocation. Radius and ulna are intact without any osseous lesions or abnormalities. Joint Spaces: Elbow and wrist joint spaces are normal. No evidence of joint effusion or subluxation. Soft Tissues: Soft tissues appear normal and unremarkable. No soft tissue swelling, calcifications, or foreign bodies noted, except for superficial cannula insertion in the cubital fossa. Multiple calcification of the forearm arterial friedman. Additional Findings: Osteoarthritic changes of carpometacarpal joints in terms of decrease in joint space, osteophyte lipping, and subchondral sclerotic changes. IMPRESSION: 1. Osteoarthritic changes of carpometacarpal joints. 2. Lucent line traversing the medial epicondyle of the distal humerus, (could represent an accessory bone rather than a fracture fragment), which requires further evaluation of the maximum point of tenderness. Disclaimer: A subtle bone abnormality or fracture may not be readily apparent on X-rays, thus clinical correlation and further imaging, including follow-up CT, MRI, or follow-up X-rays, are advised as needed. Electronically signed by Marcio Howard 09-24-2024 07:45 AM
[2024-09-24] MEDS: LITHIUM CARBONATE 300 MG TAB PO SCH (07:53)
[2024-09-24] MEDS: LITHIUM CARBONATE 450 MG TABCR PO SCH (07:53)
[2024-09-24] MEDS: METOPROLOL SUCC 25MG EXT REL TAB PO SCH (07:54)
[2024-09-24] MEDS: ACETAMINOPHEN 325 MG TAB PO PRN (07:57)
[2024-09-24] MEDS: LANTUS PER UNIT CHARGE SQ SCH (08:00)
--- NOTE | 2024-09-24 10:25 | Gastrointestinal Consultation ---
Date of Consultation September 24, 2024 Assessment & Plan (1) Food impaction of esophagus: (2) Dysphagia: Plan Patient feels like her food bolus has passed since admission. she is tolerating secretions. She has a long history of dysphagia and has had multiple scopes with her regular director of student life at [facility]. I had discussed this case with Dr. Riley and Dr. Schultz. - Given that active food bolus has seemingly passed, would hold off on EGD at this time. - increase protonix to 40mg bid. - will advance diet to clears. - she should follow with her regular director of student life on discharge. Can follow there for outpatient EGD. Supervising Physician Co-Signing Physician Notes Patient seen and examined with Steven Chance PAC and agree with assessment and plan. Feeling better. States no feeling of food being stuck in esophagus. Did eat mashed potatoes, corn and a few bites of chicken without issues. Abd: Soft, NT, ND, +BS Continue current therapy and supportive care Recommend followup with [facility] for EGD as outpatient. History of Present Illness Reason for Consultation: Food Impaction Requesting Physician: Bao Salgado MD Attending Physician: Rui Angela DO History of Present Illness Patient is a 59 year old female who presented to the emergency department 09/23/24 with a sudden onset of right-sided chest discomfort around 7 PM last evening with associated nausea and vomiting. She was eating pork chops and she felt like this had been stuck. She reports that she has had intermittent dysphagia issues for years and has regular EGDs through [facility]. She reports that her last one was a year ago. The patient does have a cardiac history with previous SD with stent placement 18 months ago. Patient took nitroglycerin as the chest discomfort persisted and this caused vomiting again which did seem to relieve some pain in her chest but then the discomfort in the chest returned along with worsening right arm pain. Patient then proceeded to the hospital. Patient was admitted with hypertensive crisis. Since admission, she feels like the food bolus has passed as she has been able to tolerate secretions. no further nausea, vomiting. rest of GI ros are unremarkable. 09/24/24 CBC unremarkable, BMP unremarkable other than glucose of 152. TSH 3.250. 09/23/24 Lipase 9, LFTs unremarkable except alk phos 127. Troponin 7.7 7/14/25 CTA - Esophagus is mildly dilated with distal esophagus is filled with food material. Oral contrast is noted within the esophagus without obvious leaking (no obvious rupture is seen)-new finding. Allergies Allergy/AdvReac Type Severity Reaction Status Date / Time bee venom protein (honey bee) Allergy Severe HIVES AND Verified 07/25/23 19:17 DIFFICULTY BREATHING sucralfate Allergy Severe numbness Verified 07/25/23 19:17 face,lips tongue ciprofloxacin Allergy Intermediate heart Verified 07/25/23 19:17 palpatations clarithromycin Allergy Intermediate NAUSEA AND Verified 07/25/23 19:17 DELUSIONAL clindamycin Allergy Intermediate "FELT LIKE Verified 07/25/23 19:17 MY HEAD EXPLODE" doxepin Allergy Intermediate BURNING TO Verified 07/25/23 19:17 APPLICATION SITE AND JITTERINESS doxycycline Allergy Intermediate ALTERED Verified 07/25/23 19:17 MENTAL STATUS oxycodone Allergy Intermediate HALLUCINATI Verified 07/25/23 19:17 ONS quetiapine Allergy Intermediate HALLUCINATIONS, Verified 07/25/23 19:17 JITTERYNESS valproic acid Allergy Intermediate "LOOSE Verified 07/25/23 19:17 MIND" Penicillins Allergy Unknown Unknown- Verified 07/25/23 19:17 A CHILD gabapentin AdvReac Intermediate Extremely Verified 07/25/23 19:17 tired hydroxyzine AdvReac Intermediate Slept for Verified 07/25/23 19:17 days indomethacin AdvReac Intermediate "SPACED Verified 07/25/23 19:17 OUT" Macrolide Antibiotics AdvReac Intermediate HEADACHE Verified 07/25/23 19:17 AND NAUSEA ranitidine AdvReac Intermediate Slept for Verified 07/25/23 19:17 days alprazolam AdvReac Mild JITTERY Verified 07/25/23 19:17 erythromycin base AdvReac Mild NAUSEA Verified 07/25/23 19:17 Sulfa (Sulfonamide AdvReac Mild UPSET Verified 07/25/23 19:17 Antibiotics) STOMACH Home Medications Medication Instructions Recorded Confirmed Type cyanocobalamin (vitamin B-12) 1,000 mcg PO QAM 05/11/18 09/24/24 History 1,000 mcg tablet (Vitamin B-12) ropinirole 1 mg tablet 2 mg PO HS 12/03/18 09/24/24 History ipratropium 0.5 mg-albuterol 3 mg 3 ml inhalation QID PRN Shortness 04/07/19 09/24/24 History (2.5 mg base)/3 mL nebulization Of Breath Or Wheezing soln ropinirole 0.5 mg tablet 0.5 mg PO DAILY PRN Restless Leg(S) 10/28/21 09/24/24 History aspirin 81 mg tablet,delayed 81 mg PO QAM 04/02/23 09/24/24 History release insulin aspart U-100 100 unit/mL 7 unit subcut TIDM 04/02/23 09/24/24 History (3 mL) subcutaneous pen (Novolog FlexPen U-100 Insulin aspart) insulin degludec 100 unit/mL (3 20 unit subcut QAM 04/02/23 09/24/24 History mL) subcutaneous pen (Tresiba FlexTouch U-100 insulin) levothyroxine 125 mcg tablet 125 mcg PO QAM 04/02/23 09/24/24 History lithium carbonate 150 mg capsule 150 mg PO QAM 04/02/23 09/24/24 History lithium carbonate 450 mg 450 mg PO QAM 04/02/23 09/24/24 History tablet,extended release meclizine 25 mg tablet 25 mg PO TID PRN Dizziness 04/02/23 09/24/24 History nitroglycerin 0.4 mg sublingual 0.4 mg sublingual UD PRN Chest Pain 04/02/23 09/24/24 History tablet pantoprazole 40 mg tablet,delayed 40 mg PO QAM 04/02/23 09/24/24 History release metoprolol succinate 25 mg 25 mg PO QAM 04/19/23 09/24/24 History tablet,extended release 24 hr acetaminophen 300 mg-codeine 30 mg 1 tab PO Q8H PRN pain #20 tabs 10/15/23 0 09/24/24 Rx tablet tirzepatide 12.5 mg/0.5 mL 12.5 mg subcut WK 09/24/24 09/24/24 History subcutaneous pen injector (Teresa) Patient History Medical History On anticoagulant therapy Cancer (2017) uterine cancer Degenerative disc disease Osteoarthritis Kidney mass noted on ultrasound - [facility], f/u [facility] Hypothyroidism Anemia hx Bipolar disorder Anxiety Cardiac murmur HX Sleep apnea CPAP Asthma rarely uses nebulizer Diabetes mellitus, type 2 IDDM Hypertension hx GERD (gastroesophageal reflux disease) Restless leg Surgical History S/P laparoscopic hysterectomy (~2021) with BSO (at [facility]) History of cardiac cath 11/2022 at [facility] 04/02/23 at [facility] with x1 drug eluting stent placed. History of herniorrhaphy History of cholecystectomy with hernia repair History of gastric bypass 2019 [facility]-200 LB weight loss since History of anesthesia reaction reports she woke up during knee replacement surgery History of total knee replacement R/L History of tooth extraction History of esophagogastroduodenoscopy (EGD) History of colonoscopy Family History Father Family history of diabetes mellitus Sister Family history of diabetes mellitus Brother Family history of diabetes mellitus Mother Family history of diabetes mellitus Father Family history of esophageal cancer Brother Family history of esophageal cancer Other No family history of adverse response to anesthesia Social History Smoking Status: Never smoker Second Hand Exposure: Yes (PARENT SMOKED); Do You Dip or Chew Tobacco: No; Hx Alcohol Use: No Hx Substance Use: No Preferred Language: Croatian Communication Ability: Effective Public Address Systems Mechanic Required: No Beliefs That Will Affect Care: None Current Living Situation: Spouse current occupational status: other 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 Feels Safe at Home: Yes Safety Concerns: Feels Safe At This Time Assistive Devices: BiPap and Glasses Assistive Devices Comment: continuous glucose monitor Review of Systems Review of Systems: All systems reviewed & are unremarkable except as noted in HPI & below Physical Exam Constitutional: WD/WN, vitals as above Respiratory: normal respiratory effort, lungs clear to auscultation Cardiovascular: Rate/Rhythm: regular rate and regular rhythm Gastrointestinal (Abdomen): normal bowel sounds, soft, nontender, no hepatosplenomegaly Psychiatric: Orientation: alert and oriented x 3 Affect: euthymic affect Results & Data Vital Signs (Past 12 Hours) Vital Signs Temp Pulse Pulse Resp BP BP BP 09/24/24 09:00 87 09/24/24 09:00 09/24/24 07:57 98.1 F 75 18 182/72 H 09/24/24 05:45 80 20 164/70 H 09/24/24 05:45 98.1 F 82 16 187/77 H 09/24/24 05:11 58 L 16 156/62 H 09/24/24 04:29 52 L 18 169/91 H 09/24/24 04:23 56 L 09/24/24 02:36 66 13 202/82 H 09/24/24 02:30 61 20 205/80 H 09/24/24 02:00 60 22 191/83 H 09/24/24 02:00 60 20 191/93 H 09/24/24 01:30 60 23 176/91 H 09/24/24 00:40 60 18 191/84 H 09/24/24 00:40 51 L 18 191/84 H 09/24/24 00:00 67 22 168/75 H 09/23/24 23:30 56 L 15 148/68 H 09/23/24 23:03 57 L 16 169/94 H 09/23/24 22:54 98.2 F 56 L 16 163/78 H 09/23/24 22:49 Pulse Ox O2 Del Method O2 Flow Rate 09/24/24 09:00 09/24/24 09:00 Room Air 09/24/24 07:57 98 Room Air 09/24/24 05:45 09/24/24 05:45 97 Room Air 09/24/24 05:11 98 09/24/24 04:29 96 Room Air 09/24/24 04:23 09/24/24 02:36 98 Room Air 09/24/24 02:30 96 09/24/24 02:00 98 09/24/24 02:00 97 09/24/24 01:30 96 09/24/24 00:40 98 09/24/24 00:40 96 Room Air 09/24/24 00:00 99 09/23/24 23:30 100 09/23/24 23:03 98 09/23/24 22:54 99 Room Air 09/23/24 22:49 98 Room Air 0 Coding Level of Care Code 96572 IN/OBS CONSULT LVL 4,60M Diagnoses Food impaction of esophagus T18.128A Dysphagia R13.10
--- NOTE | 2024-09-24 11:43 | Electrocardiogram Report ---
Test Reason : Blood Pressure : */* mmHG Vent. Rate : 55 BPM Atrial Rate : 55 BPM P-R Int : 172 ms QRS Dur : 88 ms QT Int : 458 ms P-R-T Axes : 57 28 77 degrees QTcB Int : 438 ms Sinus bradycardia Nonspecific T wave abnormality Abnormal ECG When compared with ECG of 25-Jul-2023 18:20, Nonspecific T wave abnormality now evident in Lateral leads Confirmed by Dave Aly ([id number]) on 09/24/2024 11:43:40 AM Referred By: REFERRED SELF Confirmed By: Dave Aly
--- NOTE | 2024-09-24 12:24 | Discharge Summary ---
Discharge Summary Date of Service September 24, 2024 Principal Dx & Hospital Course #1 = Principal Diagnosis (1) Hypertensive crisis: Uncontrolled HTN Unknown baseline BP control Secondary to esophageal food impaction History of GERD, history of gastric bypass hx CAD status post stent (2023) RUE pain PVD, carotid artery disease as per records mild TR hyperlipidemia, on statin Rx bronchial asthma, stable COLTEN on CPAP DM 2 insulin requiring, suboptimal control as of recent hemoglobin A1c of 7.7 last June 2024 hypothyroidism, euthyroid as of recent outpatient TSH unspecified parkinsonism as per records/mild cognitive impairment as per records, patient mentating well mood disorder, stable OBS Admit to PCU IV hydralazine 1 dose now Add amlodipine to regimen, further increase in home beta-jessica limited by bradycardia (ACEI/ARB medications with potential interaction with patient's lithium Rx.) GI consult re: esophageal food impaction (ED provider already in touch with Dr. Riley.) N.p.o. in anticipation of endoscopy this a.m. Hold aspirin in anticipation of endoscopic procedure. Plain x-rays of the right upper extremity Basal bolus insulin adjusted for n.p.o. status, ISS BG goal 110-140 DVT prophylaxis. SCDs re: procedure Full code Text document was generated using [employer] voice recognition software. It may contain grammatical or spelling errors. Kindly contact undersigned for clarification of any documentation item in [facility]. Hospital course: Patient was admitted to the telemetry unit. She was given gentle IV fluids. She was made NPO. Serial studies were done. Troponins were unremarkable. There were no EKG changes. Detected on scanning that the patient had an impacted food bolus. She has had multiple food impactions in the past and EGDs. Fortunately the patient passed the bolus. GI was consulted. They recommended clear liquids and increasing to her gastric bypass diet. No EGD was recommended at this time. Her blood pressure was better controlled and thought to be secondary to anxiety and from the pain from the food bolus impaction. On discharge her vital signs are stable and physical exam findings are stable. Sshe is to follow-up with her outpatient assistant director of nursing and PCP. Continue to monitor BP. Notes For Next Care Provider Medication Changes From Visit No med changes Admission HPI Per Admitting Provider History obtained from patient, family, and records. Medical history significant for CAD status post stent (2023), PVD, mild TR, hypertension, hyperlipidemia, bronchial asthma, COLTEN on CPAP, DM 2 insulin requiring, hypothyroidism, GERD, history of gastric bypass, RLS, unspecified parkinsonism as per records, mild cognitive impairment as per records, endometrial hyperplasia as per records, mood disorder. Last confinement March 2023 for NSTEMI. Patient transferred to [facility] for further management. Subsequent mid circumflex stent placement. Patient woke up with right shoulder/arm pain yesterday. No recollection of trauma. Patient slept on her right side the night before. Patient noted food stuck in her throat while eating pork chops last night for dinner. Patient thinks she may have swallowed food too fast. Patient usually eats carefully after gastric bypass. Food getting stuck in the throat has happened before but relieved by emesis at home. Last episode was last month. Patient later on experienced achy right sided chest pain with worsening of right upper arm pain from the morning. Subsequent nausea and bilious emesis episodes with with food particles. No SOB, no cough symptoms. Patient still felt ill despite emesis episode. Patient requested to bring her to hospital to get checked out. Chest pain at one point went to her back during emesis episode en route to hospital. Patient also mentions intermittent achy headache episodes over the last few days. Highest SBP of 200s documented at the ER. Medical History as above 2023 EGD showed no endoscopic esophageal abnormality to explain patient's dysphagia. Esophagus dilated. Regular Z-line 40 cm from incisors. Gastric bypass with normal-sized pouch and intact staple line. Normal examined jejunum. 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 Spouse is present. NAD Head- atraumatic Eyes- PERRL, EOMI, anicteric ENT- oropharynx clear Neck- supple, no JVD, no adenopathy, no thyromegaly; carotids +2/2, no bruits appreciated Lungs- clear to auscultation and percussion Heart- regular rhythm; no murmur, no gallop, no rub appreciated Abdomen- normal bowel sounds, soft, nontender, no masses or hepatosplenomegaly Extremities- no pretibial edema, no calf tenderness; peripheral pulses intact Neuro- alert, oriented x 3; PERRL, EOMI; no facial palsy; no dysarthria; Skin- warm & dry Updated Medication List Medication Instructions Recorded Confirmed Type cyanocobalamin (vitamin B-12) 1,000 mcg PO QAM 05/11/18 09/24/24 History 1,000 mcg tablet (Vitamin B-12) ropinirole 1 mg tablet 2 mg PO HS 12/03/18 09/24/24 History ipratropium 0.5 mg-albuterol 3 mg 3 ml inhalation QID PRN Shortness 04/07/19 09/24/24 History (2.5 mg base)/3 mL nebulization Of Breath Or Wheezing soln ropinirole 0.5 mg tablet 0.5 mg PO DAILY PRN Restless Leg(S) 10/28/21 09/24/24 History aspirin 81 mg tablet,delayed 81 mg PO QAM 04/02/23 09/24/24 History release insulin aspart U-100 100 unit/mL 7 unit subcut TIDM 04/02/23 09/24/24 History (3 mL) subcutaneous pen (Novolog FlexPen U-100 Insulin aspart) insulin degludec 100 unit/mL (3 20 unit subcut QAM 04/02/23 09/24/24 History mL) subcutaneous pen (Tresiba FlexTouch U-100 insulin) levothyroxine 125 mcg tablet 125 mcg PO QAM 04/02/23 09/24/24 History lithium carbonate 150 mg capsule 150 mg PO QAM 04/02/23 09/24/24 History lithium carbonate 450 mg 450 mg PO QAM 04/02/23 09/24/24 History tablet,extended release meclizine 25 mg tablet 25 mg PO TID PRN Dizziness 04/02/23 09/24/24 History nitroglycerin 0.4 mg sublingual 0.4 mg sublingual UD PRN Chest Pain 04/02/23 09/24/24 History tablet pantoprazole 40 mg tablet,delayed 40 mg PO QAM 04/02/23 09/24/24 History release metoprolol succinate 25 mg 25 mg PO QAM 04/19/23 09/24/24 History tablet,extended release 24 hr acetaminophen 300 mg-codeine 30 mg 1 tab PO Q8H PRN pain #20 tabs 10/15/23 09/24/24 Rx tablet tirzepatide 12.5 mg/0.5 mL 12.5 mg subcut WK 09/24/24 09/24/24 History subcutaneous pen injector (Teresa) Hospital Stay Data Consultations 09/24/24 04:03 ED Decision to Admit Stat 09/24/24 04:30 Consult Gastroenterology Routine Procedures Performed Operation Date: 09/24/24 17:35 <No data on this case meets the specified criteria> Diagnostic Imagining Performed 09/23/24 23:25 CT angio chest dissec wo/w con Stat 09/24/24 04:24 CT head/brain wo con Stat Pending Results Patient Have Any Pending Studies at Discharge: No Discharge Instructions Given to Patient (Per Discharging Provider) F/U with GI for possible rescope/EGD F/U with Dr. Galaviz within 1 week to check BP Total Time Total Time Spent Total Time Spent (In Minutes): 40 minutes
[2024-09-24 15:44] VITALS: BP 176/81; RESP 17; TEMP 97.7; O2SAT 100
[2024-09-24 15:45] VITALS: PULSE 49
== END 2024-09-24 17:30 | disposition home or self-care (01) ==
LOC: ED 22:48 → 2S 22:48